=== PATIENT | male | born 1945 | race Caucasian/White ===

== ENCOUNTER 2018-03-14 17:11 | Emergency (ER) | payer MEDICARE, SELFPAY ==
[2018-03-14 17:15] VITALS: BP 139/75; PULSE 75; RESP 20; TEMP 36.7; O2SAT 96
[2018-03-14 17:46] LABS: Abs Immature Grans 0.03 k/cumm (0.0-0.09); Absolute Basophil Count 0.02 k/cumm (0.0-0.2); Absolute Eosinophil Count 0.13 k/cumm (0.0-0.7); Absolute Lymphocyte Count 3.06 k/cumm (1.2-3.4); Absolute Monocyte Count 0.62 k/cumm (0.11-0.7); Absolute Neutrophil Count 5.22 k/cumm (1.2-6.7); Basophils % 0.2; Eosinophils % 1.4; HGB 11.1 g/dL (13.5-17.5); Immature Grans % 0.3; Lymphocytes % 33.7; Mean Corp. HGB Concentration 32.6 g/dL (32.0-36.0); Mean Corpuscular Hemoglobin 32.6 pg (27.0-33.0); Mean Corpuscular Volume 99.7 fL (80-95); Mean Platelet Volume 11.4 fL (8.0-11.0); Monocytes % 6.8; Neutrophils % 57.6; Platelet Count 282 x1000/uL (130-400); RBC 3.41 m/cumm (4.50-6.00); RBC Distribution Width 15.1 % (11.8-14.1); White Blood Cell Count 9.08 k/cumm (4.4-10.8)
[2018-03-14 17:58] LABS: PTT Activated 44.6 sec (21.0-31.4)
[2018-03-14 17:59] LABS: ALT 28 U/L (12-78); AST 11 U/L (15-37); Albumin 3.6 g/dL (3.4-5.0); Alkaline Phosphatase 94 U/L (46-116); Anion Gap 11.3 mmol/L (3-11); BUN 27 mg/dL (7-18); Bilirubin, Total 0.3 mg/dL (0.2-1.0); CO2 23.7 mmol/L (21.0-32.0); CREATININE 1.29 mg/dL (0.70-1.30); Calcium 9.2 mg/dL (8.5-10.1); Chloride 104 mmol/L (98-107); Glucose 186 mg/dL (70-100); Potassium 3.8 mmol/L (3.5-5.1); Sodium 139 mmol/L (136-145); Total Protein 7.7 g/dL (6.4-8.2)
--- NOTE | 2018-03-14 18:12 | ED.GENADUL_ITS ---
Discharge Plan Disposition Patient Disposition: HOME Condition: Good Discharge Details Chief Complaint: GenMedical Clinical Impression: Supratherapeutic INR Primary Care Provider: Elle Ibrahim ED Provider: Alvaro Loera Home Meds and New Rx's Prescriptions: No Action tamsulosin 0.4 MG capsule 0.4 mg PO DAILY@0830 Qty: 90 RF: 4 finasteride 5 MG tablet 5 mg PO DAILY Qty: 90 RF: 3 loperamide [Anti-Diarrhea] 2 MG tablet 2 mg PO PRN RF: 0 calcium carbonate-vitamin D3 1 EACH tablet 2 ea PO DAILY RF: 0 liothyronine [Cytomel] 5 MCG tablet 5 mcg PO DAILY RF: 0 bupropion HCl 100 MG tablet 300 mg PO DAILY RF: 0 losartan [Cozaar] 25 MG tablet 25 mg PO DAILY RF: 0 fluoxetine [Prozac] 10 MG capsule 30 mg PO DAILY RF: 0 nitroglycerin [Nitrostat] 0.4 MG tablet, sublingual 0.4 mg Buccal ONCE RF: 0 pyridoxine (vitamin B6) [Vitamin B-6] 50 MG tablet 50 mg PO DAILY RF: 0 fluticasone [Flonase Allergy Relief] 9.9 ML spray,suspension 9.9 ml NS DAILY PRN PRNRF: 0 rosuvastatin [Crestor] 40 MG tablet 40 mg PO HS RF: 0 metoprolol tartrate 25 MG tablet 25 mg PO BID RF: 0 magnesium L-lactate [Magtab] 84 MG tablet extended release 84 mg PO BID RF: 0 melatonin 3 MG tablet,disintegrating 3 mg PO HS RF: 0 warfarin [Coumadin] 1 MG tablet 2.5 mg PO DAILY RF: 0 levothyroxine [Synthroid] 125 MCG tablet 125 mcg PO DAILY RF: 0 omeprazole 20 MG capsule,delayed release(DR/EC) 20 mg PO DAILY@0730 RF: 0 folic acid 1 MG tablet 1 mg PO QAM RF: 0 adalimumab [Humira] 40 MG/0.8 ML syringe kit 40 mg Sub-Q DIRECTED RF: 0 clopidogrel [Plavix] 75 MG tablet 75 mg PO DAILY Qty: 90 RF: 0 gabapentin 300 MG capsule 300 mg PO PRN PRNRF: 0 methylprednisolone 4 MG tablet 4 mg PO DAILY RF: 0 insulin detemir U-100 [Levemir FlexTouch U-100 Insuln] 100 UNIT/ML insulin pen 38 units Sub-Q BID RF: 0 albuterol sulfate [ProAir RespiClick] 90 MCG aerosol powdr breath activated 2 puff Inhalation QID PRN PRNRF: 0 Spironolactone 50 MG Tablet 50 mg PO DAILY RF: 0 Discharge Instructions Instructions: Elevated INR (ED) Additional Instructions: Please do not take your Coumadin today or tomorrow. Return to your Coumadin clinic or your family are here here in the next 24-48 hours for repeat check of your INR level. If you notice any blood in your stools, vomiting with bleeding , blood in your urine please return immediately. If you notice any worsening of your symptoms, or any new symptoms such as vomiting, diarrhea, fever, chills , shortness of breath, chest pain, numbness, weakness, or fainting , please return immediately to the emergency department for reevaluation. Please follow up with your primary care provider as soon as possible for reassessment and reevaluation. As always, it was a pleasure participating in your medical care today. Referrals: Elle Ibrahim [Primary Care Provider] - Medical Decision Making This is a pleasant 72-year-old male who presents for evaluation of supratherapeutic INR. Her his INR was greater than 8, however he denies no symptoms of bleeding, stool Hemoccult was negative for any blood, and he has no symptoms of hematuria, hematemesis, or other abnormalities. We will get an INR and confirm his elevated findings, we will make sure his hemoglobin levels are stable. He will most likely be getting oral vitamin K, and close follow-up in the next 24 and 48 hours for INR recheck. Since he has no active bleeding symptoms at this time I do not feel that any other treatments are indicated including a lack of the need for PCC, or FFP. 6:29 PM Patient's laboratory workup demonstrates an elevated INR of 9. With no signs of active bleeding he will be given 5 mg of oral vitamin K. We discussed red flags which to return including any and all potential signs of bleeding. He will follow-up with his primary care provider in the outpatient Coumadin clinic in the next 24-48 hours for repeat INR check. He also has an INR machine at home. We recommend that he hold off on doses for the next 24 hours, and then reassess. I have extensively reviewed the treatment plan and discharge instructions with the patient and their family. I have addressed all patient concerns at this time. The patient and family was made aware of what symptoms to monitor for that would warrant a return to the emergency department. Discussed the plan with the patient and family, they demonstrate verbal understanding and agreement with our assessment and plan at this time. HPI General Date/Time Provider Initiated Documentation: 03/14/18 17:35 . HPI Narrative: This is a 72-year-old male with a past medical history of type 2 diabetes, blood clots, Crohn's disease, rheumatoid arthritis, seizure disorder who presents today for evaluation of supratherapeutic INR. Patient states that he is actually been low on his INR for the last few weeks because he has not been taking his medication, however he started taking his medication and when he went to have his INR checked today it was greater than 8. He was recommended to come to the ER for further evaluation. He denies any chest pain , abdominal pain, hematuria, diarrhea, melena, dark tarry stool, cuts, or other pain. His he states that he has been taking medications as directed. He denies any other trauma falls or complaints at this time recently denies any recent surgeries, worsening of his chronic colitis, or other complaints. Related Data Home Medications Medication Instructions Recorded Confirmed adalimumab [Humira] 40 mg SUB-Q DIRECTED 10/13/12 03/14/18 folic acid 1 mg PO QAM 10/13/12 03/14/18 levothyroxine [Synthroid] 125 mcg PO DAILY 10/13/12 03/14/18 omeprazole 20 mg PO DAILY@0730 10/13/12 03/14/18 warfarin [Coumadin] 2.5 mg PO DAILY 10/13/12 03/14/18 clopidogrel [Plavix] 75 mg PO DAILY #90 tab 10/17/12 03/14/18 tamsulosin 0.4 mg PO DAILY@0830 #90 tab 03/27/13 03/14/18 finasteride 5 mg PO DAILY #90 tab-cap 03/29/14 03/14/18 bupropion HCl 300 mg PO DAILY 07/03/15 03/14/18 calcium carbonate-vitamin D3 2 ea PO DAILY 07/03/15 03/14/18 fluoxetine [Prozac] 30 mg PO DAILY tab-cap 07/03/15 03/14/18 fluticasone [Flonase Allergy 9.9 ml NS DAILY PRN PRN 07/03/15 03/14/18 Relief] liothyronine [Cytomel] 5 mcg PO DAILY tab-cap 07/03/15 03/14/18 loperamide [Anti-Diarrhea] 2 mg PO PRN 07/03/15 03/14/18 losartan [Cozaar] 25 mg PO DAILY tab-cap 07/03/15 03/14/18 magnesium L-lactate [Magtab] 84 mg PO BID 07/03/15 03/14/18 melatonin 3 mg PO HS 07/03/15 03/14/18 metoprolol tartrate 25 mg PO BID tab-cap 07/03/15 03/14/18 nitroglycerin [Nitrostat] 0.4 mg BUCCAL ONCE tab-cap 07/03/15 03/14/18 pyridoxine (vitamin B6) [Vitamin 50 mg PO DAILY 07/03/15 03/14/18 B-6] rosuvastatin [Crestor] 40 mg PO HS 07/03/15 03/14/18 Spironolactone 50 mg PO DAILY 10/21/17 03/14/18 albuterol sulfate [ProAir 2 puff INHALATION QID PRN PRN 10/21/17 03/14/18 RespiClick] insulin detemir U-100 [Levemir 38 units SUB-Q BID 10/21/17 03/14/18 FlexTouch U-100 Insuln] methylprednisolone 4 mg PO DAILY 10/21/17 03/14/18 gabapentin 300 mg PO PRN PRN 11/22/17 03/14/18 Previous Rx's Medication Instructions Recorded clopidogrel [Plavix] 75 mg PO DAILY #90 tab 10/17/12 Allergies Allergy/AdvReac Type Severity Reaction Status Date / Time methotrexate AdvReac Mild Unverified 03/14/18 17:17 atorvastatin calcium AdvReac Bones ache. Unverified 03/14/18 17:17 [From Lipitor] RAMICAIN AdvReac Uncoded 03/14/18 17:17 General Stated Complaint: GenMedical HEMA: 3 Review of Systems Review of Systems All systems reviewed & are unremarkable except as noted in HPI and below PFSH Medical History GERD (gastroesophageal reflux disease) Social History Smoking/Tobacco Use Status: Never Surgical History Prosthesis, Penile implant Exam Narrative Exam Narrative: 1.Const: Well-nourished, Well-developed, appearing stated age 2.Eyes: PERRL, no conjunctival injection, and symmetrical lids. 3.ENT: Atraumatic external nose and ears. Moist MM. Neck: Symmetric, trachea midline, No thyromegaly. 4.CVS: +S1/S2, No murmurs or gallops. Peripheral pulses 2+ and equal in all extremities. Brisk capillary refill in all extremities. 5.RESP: Unlabored respiratory effort. Clear to auscultation bilaterally. No wheezes rales or rhonchi 6.GI: Soft, Nontender/Nondistended, No hepatosplenomegaly. No guarding or rebound. 7.MSK: Normocephalic/Atraumatic, Extremities w/o deformity or ttp No cyanosis or clubbing, Normal movement of all extremities 8.Skin: Warm, Dry. No rashes or lesions. No significant bruising. 9.Neuro: spinning frame changer II-XII grossly intact. Sensation grossly intact, no focal neurologic deficits. 10.Psych: (AAO) x3. Appropriate mood and affect Rectal exam demonstrates no evidence of rectal bleeding, hemorrhoids, stool occult was negative. Course Vital Signs Temperature 36.7 C 03/14/18 17:15 Pulse 75 03/14/18 17:15 Respiratory Rate 20 03/14/18 17:15 Blood Pressure 139/75 03/14/18 17:15 Pulse Oximetry 96 03/14/18 17:15 Temperature 36.7 C 03/14/18 17:15 Temperature Source Temporal Artery Scan 03/14/18 17:15 Pulse 75 03/14/18 17:15 Respiratory Rate 20 03/14/18 17:15 Respiratory Effort Short of Breath 03/14/18 17:35 Respiratory Depth Normal 03/14/18 17:35 Blood Pressure 139/75 03/14/18 17:15 Blood Pressure Position Sitting 03/14/18 17:15 Pulse Oximetry 96 03/14/18 17:15 Oxygen Delivery Method Room Air 03/14/18 17:15 Oxygen Flow Rate 0 03/14/18 17:15 Pain Level 7 03/14/18 17:15 Lab/Test Results Lab/Test Results: Laboratory Tests Range/Units 03/14/18 03/14/18 17:40 17:40 WBC (4.4-10.8) k/cumm 9.08 RBC (4.50-6.00) m/cumm 3.41 L Hgb (13.5-17.5) g/dL 11.1 L Hct (40.0-50.0) % 34.0 L MCV (80-95) fL 99.7 H MCH (27.0-33.0) pg 32.6 MCHC (32.0-36.0) g/dL 32.6 RDW (11.8-14.1) % 15.1 H Plt Count (130-400) x1000/uL 282 MPV (8.0-11.0) fL 11.4 H Immature Gran % 0.3 Neutrophils % 57.6 Lymphocytes % 33.7 Monocytes % 6.8 Eosinophils % 1.4 Basophils % 0.2 Absolute Neutrophils (1.2-6.7) k/cumm 5.22 Absolute Lymphocytes (1.2-3.4) k/cumm 3.06 Absolute Monocytes (0.11-0.7) k/cumm 0.62 Absolute Eosinophils (0.0-0.7) k/cumm 0.13 Absolute Basophils (0.0-0.2) k/cumm 0.02 Sodium (136-145) mmol/L 139 Potassium (3.5-5.1) mmol/L 3.8 Chloride (98-107) mmol/L 104 Carbon Dioxide (21.0-32.0) mmol/L 23.7 Anion Gap (3-11) mmol/L 11.3 H BUN (7-18) mg/dL 27 H Creatinine (0.70-1.30) mg/dL 1.29 Estimated GFR/1.73 m2 (mL/min/1.73m2) 54.60 Glucose (70-100) mg/dL 186 H Calcium (8.5-10.1) mg/dL 9.2 Total Bilirubin (0.2-1.0) mg/dL 0.3 AST (15-37) U/L 11 L ALT (12-78) U/L 28 Alkaline Phosphatase (46-116) U/L 94 Total Protein (6.4-8.2) g/dL 7.7 Albumin (3.4-5.0) g/dL 3.6
[2018-03-14 18:26] LABS: Prothrombin Time 86.9 sec (9.3-10.8)
[2018-03-14 18:30] LABS: INR 9.7 (1.0-3.5)
[2018-03-14] MEDS: Phytonadione 5 MG TABLET PO (18:36)
== END 2018-03-14 18:52 | disposition home or self-care (01) ==
PROVIDERS: Emergency Provider Student in an Organized Health Care Education/Training Program; PCP Family Medicine
DX: R79.1 Abnormal coagulation profile (principal); T45.515A Adverse effect of anticoagulants, initial encounter; E11.9 Type 2 diabetes mellitus without complications; Z79.4 Long term (current) use of insulin; Z79.01 Long term (current) use of anticoagulants
CPT/HCPCS: 36415; 80053; 99283; 85025; 85610; 85730

== ENCOUNTER 2018-04-27 17:00 | Outpatient (REF) | payer MEDICARE, SELFPAY ==
[2018-04-27 18:50] LABS: ALT 26 U/L (12-78); AST 15 U/L (15-37); Albumin 3.6 g/dL (3.4-5.0); Alkaline Phosphatase 84 U/L (46-116); Anion Gap 11.3 mmol/L (3-11); BUN 27 mg/dL (7-18); Bilirubin, Total 0.2 mg/dL (0.2-1.0); CO2 23.7 mmol/L (21.0-32.0); Calcium 9.1 mg/dL (8.5-10.1); Chloride 104 mmol/L (98-107); Glucose 141 mg/dL (70-100); Sodium 139 mmol/L (136-145); TSH (W/Ref FT4) 0.69 uIU/mL (0.358-3.74); Total Protein 7.4 g/dL (6.4-8.2)
== END 2018-04-27 17:20 ==
LOC: NCHCN 17:00
PROVIDERS: PCP Family Medicine; Visit Provider Nurse Practitioner Family
DX: E03.9 Hypothyroidism, unspecified (principal); E11.9 Type 2 diabetes mellitus without complications; I10 Essential (primary) hypertension
CPT/HCPCS: 80053; 84443

== ENCOUNTER 2018-07-24 12:44 | Outpatient (REF) | payer MEDICARE, SELFPAY ==
[2018-07-24 19:22] LABS: HCT 33.4 % (40.0-50.0); HGB 10.9 g/dL (13.5-17.5); Mean Corp. HGB Concentration 32.6 g/dL (32.0-36.0); Mean Corpuscular Hemoglobin 32.2 pg (27.0-33.0); Mean Corpuscular Volume 98.5 fL (80-95); Mean Platelet Volume 12.2 fL (8.0-11.0); Platelet Count 205 x1000/uL (130-400); RBC 3.39 m/cumm (4.50-6.00); RBC Distribution Width 14.2 % (11.8-14.1); White Blood Cell Count 7.35 k/cumm (4.4-10.8)
[2018-07-24 20:03] LABS: Vitamin B12 364 pg/mL (193-986)
[2018-07-24 20:06] LABS: Folate > 20.0 ng/mL (8.6-20.0)
[2018-07-26 16:25] LABS: Iron 103 ug/dL (50-175); Total Iron Binding Capacity 258 ug/dL (250-450); Transferrin Sat 40 % (20-55)
[2018-07-26 16:38] LABS: Ferritin 169 ng/mL (8-388)
== END 2018-07-24 13:04 ==
LOC: NCHCN 12:44
PROVIDERS: PCP Family Medicine; Visit Provider Family Medicine
DX: R42 Dizziness and giddiness (principal); R71.8 Other abnormality of red blood cells
CPT/HCPCS: 85027; 82607; 82728; 82746; 83540; 83550

== ENCOUNTER 2018-09-19 09:06 | Outpatient (REF) | payer MEDICARE, SELFPAY ==
[2018-09-19 13:20] LABS: HCT 32.6 % (40.0-50.0); HGB 10.4 g/dL (13.5-17.5); Mean Corp. HGB Concentration 31.9 g/dL (32.0-36.0); Mean Corpuscular Hemoglobin 31.6 pg (27.0-33.0); Mean Corpuscular Volume 99.1 fL (80-95); Mean Platelet Volume 11.8 fL (8.0-11.0); Platelet Count 232 x1000/uL (130-400); RBC 3.29 m/cumm (4.50-6.00); RBC Distribution Width 14.6 % (11.8-14.1); White Blood Cell Count 6.91 k/cumm (4.4-10.8)
[2018-09-19 14:14] LABS: Anion Gap 13.3 mmol/L (3-11); BUN 22 mg/dL (7-18); CO2 21.7 mmol/L (21.0-32.0); CREATININE 0.98 mg/dL (0.70-1.30); Calcium 8.7 mg/dL (8.5-10.1); Chloride 104 mmol/L (98-107); Cholesterol 128 mg/dL (50-200); Glucose 144 mg/dL (70-100); HDL Cholesterol 47 mg/dL (40-60); LDL CHOLESTEROL 64 mg/dL (<100); Sodium 139 mmol/L (136-145); Triglyceride 85 mg/dL (30-150); Vitamin B12 987 pg/mL (193-986)
== END 2018-09-19 09:26 ==
LOC: NCHCN 09:06
PROVIDERS: PCP Family Medicine; Visit Provider Nurse Practitioner Family
DX: E78.5 Hyperlipidemia, unspecified (principal); I10 Essential (primary) hypertension; E11.9 Type 2 diabetes mellitus without complications; E53.8 Deficiency of other specified B group vitamins; R42 Dizziness and giddiness
CPT/HCPCS: 80048; 80061; 83721; 85027; 82607

== ENCOUNTER → 2018-10-04 12:53 | Outpatient (BNVA) | payer MEDICARE, SELFPAY | PROVIDERS: PCP Family Medicine; Referring Provider Nurse Practitioner Family; Visit Provider Psychiatry & Neurology Neurology | DX: G62.9 Polyneuropathy, unspecified (principal); R42 Dizziness and giddiness; R26.89 Other abnormalities of gait and mobility; I95.9 Hypotension, unspecified; Z86.73 Personal history of transient ischemic attack (TIA), and cerebral infarction without residual deficits | CPT/HCPCS: 99205; 99215 ==

== ENCOUNTER 2018-10-04 15:15 | Outpatient (CLI) | payer MEDICARE, SELFPAY ==
[2018-10-06 12:38] LABS: Albumin 51.4 % (55.8-66.1); Monoclonal Spike 14.2 %; Total Protein 6.7 g/dl (6.3-8.2)
[2018-10-08 09:55] LABS: Pyridoxal 5-Phosphate (PLP), P 17 mcg/L (5-50)
== END 2018-10-04 15:35 ==
PROVIDERS: PCP Nurse Practitioner Family; Visit Provider Psychiatry & Neurology Neurology
DX: G62.9 Polyneuropathy, unspecified (principal)
CPT/HCPCS: 36415; 99215; 84165; 84207

== ENCOUNTER 2018-11-20 10:26 | Outpatient (REF) | payer MEDICARE, SELFPAY ==
[2018-11-20 18:27] LABS: HCT 34.9 % (40.0-50.0); HGB 11.1 g/dL (13.5-17.5); Mean Corp. HGB Concentration 31.8 g/dL (32.0-36.0); Mean Corpuscular Hemoglobin 31.4 pg (27.0-33.0); Mean Corpuscular Volume 98.6 fL (80-95); Mean Platelet Volume 11.4 fL (8.0-11.0); Platelet Count 239 x1000/uL (130-400); RBC 3.54 m/cumm (4.50-6.00); RBC Distribution Width 15.3 % (11.8-14.1)
[2018-11-20 18:38] LABS: Iron 94 ug/dL (50-175); Total Iron Binding Capacity 205 ug/dL (250-450); Transferrin Sat 46 % (20-55)
[2018-11-20 19:10] LABS: TSH (W/Ref FT4) 18.01 uIU/mL (0.358-3.74); Vitamin B12 1068 pg/mL (193-986)
[2018-11-20 19:51] LABS: FREE T4 0.72 ng/dL (0.76-1.46)
== END 2018-11-20 10:46 ==
LOC: NCHCN 10:26
PROVIDERS: PCP Nurse Practitioner Family; Visit Provider Nurse Practitioner Family
DX: E53.8 Deficiency of other specified B group vitamins (principal); E89.0 Postprocedural hypothyroidism; D51.0 Vitamin B12 deficiency anemia due to intrinsic factor deficiency
CPT/HCPCS: 85027; 82607; 83540; 83550; 84439; 84443

== ENCOUNTER 2019-03-05 10:21 | Inpatient (IN) | payer MEDICARE, SELFPAY ==
[2019-03-05] VITALS (39 sets, daily range): BP systolic 100–136; BP diastolic 59–75; PULSE 70–124; RESP 12–31; TEMP 36.6–39.2; O2SAT 91–96
--- NOTE | 2019-03-05 10:28 | W.ED.GENAD ---
Discharge Plan Discharge Details Chief Complaint: GenMedical Admit Date/Time: 03/05/19 14:28 Admit Provider: Kirill Mtz Attending Provider: Kirill Mtz Primary Care Provider: Korin Florian ED Provider: Melanie Arias Discharge Data Discharge Date/Time-TO BE ENTERED AT DEPARTURE: 03/05/19 15:49 Medical Decision Making Miguel Padilla is a 73-year-old man with history of hypothyroidism, multiple strokes in the past, hypertension, hyperlipidemia, GERD, insulin dependent diabetes, seizure disorder, adrenal insufficiency, DVT on Coumadin, coronary artery disease, Crohn's disease on immunosuppressive medication who presented to the emergency department with frequent falls including last night secondary to feeling off balance when he stands, and also 1 month of fatigue, generalized weakness, and decreased appetite. On exam patient is chronically ill but acutely nontoxic appearing. He appears dehydrated. He has somewhat decreased breath sounds throughout and is tachycardic between 100 and 120. His abdominal exam is benign, he has no posterior calf tenderness or lower extremity edema, and his neurologic exam is nonfocal. Concern for metabolic/lyte derangement, UTI/PNA, acute intracranial process, possible posterior circulation pathology, ACS. Doubt PE. Exam/history is not consistent with acute aortic process, sepsis, meningitis. Plan for EKG, CT head, chest x-ray, UA, screening labs, telemetry, IV fluid hydration. Will monitor and reassess. CT had negative for acute process. Labs were reviewed, patient with multiple lab abnormalities including elevated creatinine. EKG shows sinus tach. I discussed patient with Dr. Montes De Oca of urology at [facility], who states that patient was fluid restricted to 64 ounces per day to help combat his symptoms of overactive bladder. She states that there is no contraindication to patient receiving as much IV fluid as is necessary, and does not need to have Rehman catheter in place for this unless there is an apparent problem with urinary retention/obstructive process. Patient with elevated d-dimer, however given elevated creatinine and low clinical suspicion for PE will hold CT at this time. Plan for admission for acute kidney injury, dehydration, further evaluation. Patient is amenable. Clinical impression: Acute kidney injury, failure to thrive Disposition: [facility] inpatient Medical Records Medical records reviewed: Yes I reviewed the patient's medical records. Imaging Data Radiologic Study: Attestation: I personally reviewed and interpreted this imaging study as follows: Radiologist's impression: EXAM: XR CHEST 2V PA LATERAL INDICATION: frequent falls, FTT. COMPARISON: CHEST 2 VIEWS PA,LAT from 09/16/2017 TECHNIQUE: 2D digital imaging was performed. FINDINGS: Heart size appears stable and within normal limits given the projection. Pulmonary vasculature is within normal limits. No focal consolidating infiltrate is present. No effusion or pneumothorax is identified. Age-appropriate degenerative changes are seen in the spine. IMPRESSION: No acute pulmonary process. EXAM: CT HEAD WO CLINICAL HISTORY: trauma, loss of balance TECHNIQUE: CT was performed according to usual protocol. COMPARISON: CTA BRAIN AND NECK from 11/22/2017 FINDINGS: There is mild patient motion artifact. The ventricles and sulci are consistent with the patient's age. Old bilateral lacunar infarcts are present. There are areas of decreased attenuation in the white matter most consistent with small vessel ischemic disease. No acute intracranial hemorrhage, midline shift, or mass effect is present. No acute skull fracture is present. The visualized paranasal sinuses are clear as are the mastoid air cells. IMPRESSION: No acute intracranial process. The findings were discussed with the emergency department on the date of the examination. Lab Data Lab results reviewed: Yes I reviewed the patient's lab results. ECG Data Attestation: I personally reviewed and interpreted this ECG (s) as follows: Prior ECG tracings: not available for review (No STEMI, nondiagnostic EKG) Interpretation: EKG shows sinus tach with PACs at 116, left axis, inferior low lateral Q waves, no STEMI, nondiagnostic EKG HPI General Mode of arrival: EMS. Date/Time Provider Initiated Documentation: 03/05/19 10:28. Limitations to Documentation: no limitations. Information obtained by: patient, family, RN notes reviewed and old records reviewed. HPI Narrative: Miguel Padilla is a 73-year-old man with history of hypothyroidism, multiple strokes in the past, hypertension, hyperlipidemia, GERD, insulin dependent diabetes, seizure disorder, adrenal insufficiency, DVT on Coumadin, coronary artery disease, Crohn's disease on immunosuppressive medication presenting to the emergency department with generalized weakness and multiple falls. Patient reports that he has a long history of falling and feeling off balance upon standing. He was seen for this by Dr. Ya this past spring, and per record review symptoms were thought to be secondary to orthostatic hypotension. Patient reports that in the past week or so he has had worsening symptoms. Patient reports that when he stands up he feels very off-balance, and he does have some sensation at the room is moving. Patient reports that he does not have lightheadedness when he stands, although he states that he has never had lightheadedness when he stands in the past. Patient states that he has fallen multiple times in the last few days, most recently being last night. He did hit his head, but he denies loss of consciousness. Patient also states that over the past month or so he has had generalized weakness, increased fatigue, and significantly decreased appetite. Patient reports that he had Botox injections into my bladder about a year ago, and I am only supposed to drink 64 ounces of fluid a day. Patient reports that he has been compliant with this fluid restriction. He denies any new pain, fevers, shortness of breath, cough, vomiting, diarrhea, numbness, focal weakness. He does report chronic low back pain that is unchanged from baseline. Patient also states that he was supposed to have back surgery for this chronic pain several days ago, although he canceled the procedure due to feeling generally unwell. Patient has not taken his Coumadin since 02/24 in anticipation of undergoing that procedure. Related Data Home Medications Medication Instructions Recorded Confirmed Humira 40 mg SUB-Q QWEEK 10/13/12 03/05/19 folic acid 1 mg PO QAM 10/13/12 03/05/19 warfarin [Coumadin] 2.5 mg PO DAILY 10/13/12 03/05/19 finasteride 5 mg PO DAILY #90 tab-cap 03/29/14 03/05/19 calcium carbonate-vitamin D3 2 ea PO DAILY 07/03/15 03/05/19 fluoxetine [Prozac] 30 mg PO DAILY tab-cap 07/03/15 03/05/19 fluticasone propionate [Flonase 9.9 ml NS BID PRN 07/03/15 03/05/19 Allergy Relief] nitroglycerin [Nitrostat] 0.4 mg BUCCAL PRN PRN tab-cap 07/03/15 03/05/19 pyridoxine (vitamin B6) [Vitamin 50 mg PO DAILY 07/03/15 03/05/19 B-6] rosuvastatin [Crestor] 40 mg PO HS 07/03/15 03/05/19 Levemir FlexTouch U-100 Insuln 35 units SUB-Q QAM 10/21/17 03/05/19 ProAir RespiClick 2 puff INHALATION QID PRN PRN 10/21/17 03/05/19 Spironolactone 50 mg PO DAILY 10/21/17 03/05/19 methylprednisolone 20 mg PO DAILY 10/21/17 03/05/19 amlodipine 5 mg tablet 5 mg PO DAILY 08/23/18 03/05/19 bupropion HCl 150 mg 24 hr tablet, 150 mg PO QAM 08/23/18 03/05/19 extended release calcitonin (salmon) 200 1 spray INTRANA AL DAILY 08/23/18 03/05/19 unit/actuation nasal spray docusate sodium 100 mg capsule 100 mg PO DAILY 08/23/18 03/05/19 levothyroxine 175 mcg tablet 175 mcg PO DAILY 08/23/18 03/05/19 lidocaine-prilocaine 2.5 %-2.5 % 1 applic TP PRN gm 08/23/18 03/05/19 topical cream melatonin 10 mg tablet 10 mg PO HS PRN 08/23/18 03/05/19 pantoprazole 40 mg tablet,delayed 40 mg PO DAILY 08/23/18 03/05/19 release tamsulosin 0.4 mg capsule 0.4 mg PO DAILY 08/23/18 03/05/19 Saccharomyces boulardii 250 mg PO DAILY 03/05/19 03/05/19 acetaminophen 500 mg PO BID 03/05/19 03/05/19 cholecalciferol (vitamin D3) 2,000 unit PO DAILY 03/05/19 03/05/19 [Vitamin D3] diclofenac sodium [Voltaren] 1 % TOPICAL TID PRN 03/05/19 03/05/19 gabapentin 300 - 600 mg PO TID PRN 03/05/19 03/05/19 insulin detemir U-100 [Levemir 30 unit SUBCUT QHS 03/05/19 03/05/19 FlexTouch U-100 Insuln] ipratropium bromide 2 spray INTRANASAL QID PRN 03/05/19 03/05/19 irbesartan 300 mg PO DAILY 03/05/19 03/05/19 leflunomide 20 mg PO DAILY 03/05/19 03/05/19 liothyronine [Cytomel] 5 mcg PO DAILY 03/05/19 03/05/19 mesalamine [Delzicol] 1,200 mg PO BID 03/05/19 03/05/19 sennosides [senna] 17.2 mg PO QHS PRN 03/05/19 03/05/19 sulfasalazine 1,500 mg PO DAILY 03/05/19 03/05/19 Allergies Allergy/AdvReac Type Severity Reaction Status Date / Time infliximab Allergy Unknown Verified 03/05/19 10:35 methotrexate AdvReac Mild Unverified 03/05/19 10:35 atorvastatin calcium AdvReac Bones ache. Unverified 03/05/19 10:35 [From Lipitor] RAMICAIN AdvReac Uncoded 03/05/19 10:35 General HEMA: 3 Review of Systems Narrative: Constitutional: denies fevers, reports fatigue Eyes: denies eye pain ENT: denies facial pain, dental pain, sore throat, ear pain Cardiovascular: denies chest pain, edema, lightheadedness, palpitations Respiratory: denies SOB, cough GI: denies abdominal pain, vomiting, diarrhea : denies flank pain MSK: denies neck pain, arthralgias, myalgias, reports chronic unchanged back pain Skin: denies rash Neuro: denies headaches, numbness, focal weakness, reports generalized weakness, feeling off balance, mild vertigo PFSH Medical History Adrenal insufficiency (Chronic) Benign prostatic hyperplasia (Acute 07/03/15) Coronary artery disease (Chronic) Crohns disease (Chronic) Diabetes mellitus, type II, insulin dependent (Acute) DVT (deep venous thrombosis) (Chronic) Erectile dysfunction of organic origin (Acute 07/03/15) GERD (gastroesophageal reflux disease) GI bleed (Chronic) Graves disease (Acute) Hyperlipidemia (Acute) Hypertension (Chronic) Hypothyroidism (Chronic) Obstructive sleep apnea (Chronic) Peripheral neuropathy (Chronic) Rheumatoid arthritis (Chronic) Sensorineural hearing loss, bilateral (Acute 01/28/15) Stroke (Chronic) 2018 Traumatic compression fracture of T12 thoracic vertebra (Acute) Vitamin B12 deficiency (Acute) Vitamin B6 deficiency (Acute) Vitamin D deficiency (Acute) Social History Smoking/Tobacco Use Status: Never Alcohol Intake: never Drug use: Never Household members: spouse Number of Children: 5 current occupation: Retired [employer] What is your relationship status?: Panel score (0-1 are the most socially isolated patients): 1 Do you feel safe at home: Yes Do you feel safe in your relationship?: Yes Exam Narrative Exam Narrative: Constitutional: Chronically ill but acutely [id number], pleasant, conversing normally HENT: head atraumatic/normocephalic/normal inspection, mucous membranes somewhat dry Eyes: conjunctiva normal, sclera normal, pupils 3mm b/l Neck: no stridor, normal ROM, trachea midline Chest: normal inspection Resp: normal work of breathing, somewhat decreased breath sounds bilaterally throughout no rales/rhonchi Cardio: Tachycardic rate, irregular rhythm GI: abdomen soft, non-tender, non-distended Back: normal inspection, no rash Skin: warm, dry, normal color, no rash Neuro: alert, not altered, cranial nerves II through XII intact, motor 5 out of 5 throughout, normal sensation all extremities, normal tone Ext: No posterior calf tenderness to palpation Psych: normal mood, normal affect, normal behavior
[2019-03-05 10:46] LABS: Abs Immature Grans 0.03 k/cumm (0.0-0.09); Absolute Basophil Count 0.01 k/cumm (0.0-0.2); Absolute Eosinophil Count 0.13 k/cumm (0.0-0.7); Absolute Lymphocyte Count 1.69 k/cumm (1.2-3.4); Absolute Monocyte Count 0.38 k/cumm (0.11-0.7); Absolute Neutrophil Count 7.77 k/cumm (1.2-6.7); Basophils % 0.1; Eosinophils % 1.3; HCT 31.2 % (40.0-50.0); HGB 10.1 g/dL (13.5-17.5); Immature Grans % 0.3; Lymphocytes % 16.9; Mean Corp. HGB Concentration 32.4 g/dL (32.0-36.0); Mean Corpuscular Hemoglobin 31.4 pg (27.0-33.0); Mean Corpuscular Volume 96.9 fL (80-95); Mean Platelet Volume 10.6 fL (8.0-11.0); Monocytes % 3.8; Neutrophils % 77.6; Platelet Count 308 x1000/uL (130-400); RBC 3.22 m/cumm (4.50-6.00); RBC Distribution Width 15.3 % (11.8-14.1); White Blood Cell Count 10.01 k/cumm (4.4-10.8)
--- NOTE | 2019-03-05 10:55 | DI.CT_ITS ---
EXAM: CT HEAD WO CLINICAL HISTORY: trauma, loss of balance TECHNIQUE: CT was performed according to usual protocol. COMPARISON: CTA BRAIN AND NECK from 11/22/2017 FINDINGS: There is mild patient motion artifact. The ventricles and sulci are consistent with the patient's ag e. Old bilateral lacunar infarcts are present. There are areas of decreased attenuation in the white matter most consistent with small vessel ischemic disease. No acute intracranial hemorrhage, midlin e shift, or mass effect is present. No acute skull fracture is present. The visualized paranasal si nuses are clear as are the mastoid air cells. IMPRESSION: No acute intracranial process. The findings were discussed with the emergency department on the date of the examination.
--- NOTE | 2019-03-05 10:56 | DI.RAD_ITS ---
EXAM: XR CHEST 2V PA LATERAL INDICATION: frequent falls, FTT. COMPARISON: CHEST 2 VIEWS PA,LAT from 09/16/2017 TECHNIQUE: 2D digital imaging was performed. FINDINGS: Heart size appears stable and within normal limits given the projection. Pulmonary vasculature is wi thin normal limits. No focal consolidating infiltrate is present. No effusion or pneumothorax is id entified. Age-appropriate degenerative changes are seen in the spine. IMPRESSION: No acute pulmonary process.
[2019-03-05 10:58] LABS: INR 1.1 (0.9-1.1); Prothrombin Time 11.5 sec (9.3-11.0)
[2019-03-05 11:30] LABS: ALT 37 U/L (16-63); AST 33 U/L (15-37); Albumin 2.7 g/dL (3.4-5.0); Alkaline Phosphatase 78 U/L (46-116); Anion Gap 12.2 mmol/L (3-11); BUN 43 mg/dL (7-18); Bilirubin, Total 0.7 mg/dL (0.2-1.0); CO2 22.8 mmol/L (21.0-32.0); CREATININE 1.77 mg/dL (0.70-1.30); Calcium 9.7 mg/dL (8.5-10.1); Chloride 99 mmol/L (98-107); Estimated GFR 37.79 (mL/min/1.73m2); Glucose 264 mg/dL (70-100); Magnesium 2.1 mg/dL (1.8-2.4); Potassium 4.7 mmol/L (3.5-5.1); Sodium 134 mmol/L (136-145); TSH (W/Ref FT4) 0.35 uIU/mL (0.36-3.74); Total Protein 8.1 g/dL (6.4-8.2); Vitamin B12 1569 pg/mL (193-986)
[2019-03-05 11:32] LABS: D-Dimer 1750 ng/mlFEU (<500); Troponin I < 0.05 ng/mL (0.00-0.06)
[2019-03-05 11:38] LABS: NT-proBNP 615 pg/mL
[2019-03-05 12:45] LABS: Bilirubin Small (Negative); Blood Negative (Negative); Clarity Clear (Clear); Glucose 500 mg/dL (Negative); Ketones Negative (Negative); Leukocyte Esterase Negative (Negative); Nitrite Negative (Negative); Specific Gravity >= 1.030 (1.005-1.025); Urobilinogen 0.2 EU/dL (Up TO 0.2); pH 5.5 (5-8)
[2019-03-05 12:57] LABS: Bacteria Negative HPF (Negative); C & S Indicated? No; Casts 0-2 Hyaline LPF (Negative); Crystals Negative HPF (Negative); Epithelial Cells Few HPF (Negative); Mucus Negative (Negative); RBC Negative (0-2); WBC 0-2 HPF (0-5)
[2019-03-05] MEDS: Normal Saline 250 ML IV (13:23)
[2019-03-05 14:00] LABS: Troponin I < 0.05 ng/mL (0.00-0.06)
[2019-03-05 16:56] LABS: BE -3.5 mmol/L (-3-3); HCO3 20 mmol/L (22-28); pCO2 27 mmHg (34-47); pH 7.48 (7.35-7.45); pO2 55 mmHg (83-108); sO2 88 % (94-98); tCO2 19 mmol/L (22-29)
[2019-03-05 17:02] LABS: FIO2 R/A %; Site Right Radial
[2019-03-05] MEDS: Heparin 5,000 UNITS/ML VIAL 5000 UNITS SC (17:13)
[2019-03-05] MEDS: Insulin Aspart 300 UNITS/3 ML PEN SC (17:14)
[2019-03-05] MEDS: Normal Saline 1,000 ML 100 ML IV (17:15)
--- NOTE | 2019-03-05 18:07 | NUR.NOTE ---
Nursing Note: patient by his own admission has been too weak to provide his own care with his adl's, he needed bottom and rudy care upon admission, and he stated it has been months since he has bathed,
[2019-03-05 18:17] LABS: Troponin I < 0.05 ng/mL (0.00-0.06)
--- NOTE | 2019-03-05 18:42 | DI.CT_ITS ---
EXAM: CT CHEST WO CLINICAL HISTORY: Hypoxia, Fever TECHNIQUE: The exam was performed according to the usual protocol without contrast enhancement. COMPARISON: CHEST FOR PULMONARY EMBOLUS from 10/16/2012 FINDINGS: There is atherosclerosis of the thoracic aorta. No aneurysmal dilatation is present. The heart is e nlarged. No pericardial effusion is seen. Coronary artery calcifications are present. No significa nt thoracic adenopathy is present. No pleural effusion or pneumothorax is identified. The lungs brandon w scattered ground-glass opacities throughout the lungs. There also appear to be bronchiectatic godoy ges, particularly in the right middle and right lower lobes. The tracheobronchial tree is otherwise unremarkable. Abdominal images shows atherosclerosis. Chronic changes are seen in the thoracic spin e suggestive of DISH. There is patient motion artifact. IMPRESSION: 1. Diffuse ground-glass opacities with bronchiectasis. Differential considerations include pneumonia , hemorrhage, pulmonary edema, or interstitial pneumonia. 2. Cardiomegaly. Coronary artery disease.
--- NOTE | 2019-03-05 19:02 | DI.VRAD_ITS ---
PROCEDURE INFORMATION: Exam: CT Chest Without Contrast Exam date and time: 03/05/2019 6:36 PM Clinical history: 73 years old, male; Fever TECHNIQUE: Imaging protocol: Computed tomography of the chest without contrast. COMPARISON: CT CHEST FOR PULMONARY EMBOLUS 02/11/2013 08:19 FINDINGS: Lungs: Diffuse mosaic lung pattern with bronchiectasis. Pleural space: Unremarkable. No pneumothorax. No pleural effusion. Heart: Cardiomegaly. Coronary artery disease. Aorta: Atherosclerotic disease. Lymph nodes: Unremarkable. No enlarged lymph nodes. Bones/joints: Multilevel degenerative changes of the thoracic spine with bridging osteophytes. Loss of vertebral height of several mid thoracic vertebra. Evidence for prior vertebroplasty. Soft tissues: Unremarkable. IMPRESSION: 1. Diffuse mosaic lung pattern with bronchiectasis suggest pulmonary etiology. 2. Cardiomegaly. Coronary artery disease. Dictated and Authenticated by: Julienne Escobar MD. Ordering:AMARIS Roy MD
--- NOTE | 2019-03-05 19:03 | W.PM.HP.N ---
Date of service: 03/05/19 Time of Service: 19:10 Assessment and Plan Assessment and plan (1) Hypoxia: Status: Acute Assessment and plan: Evidence of hypoxia, fever, and pulmonary abnormalities by imaging with CT in immunosuppressed patient. - Consider infectious etiology - broad spectrum coverage with Vancomycin and Pip-Jesus, with macrolide for atypical coverage. - No evidence of fungal infection. Would also consider viral infection. Check Rapid Flu, and consider viral panel pending patient's clinical status. - Also on Humira, Sulfasalazine, and Leflunomide, with potential for infections as well as pulmonary processes such as ILD and Pulm toxicity - although patient is febrile. Plan on monitoring closely, with consideration for review of images and clinical picture with [facility] [place] pending patient's clinical status in the morning. (2) Fever: Status: Acute Assessment and plan: As above. Blood cultures pending. Urinalysis negative for infection. (3) Weakness: Status: Acute (4) PRISCILLA (acute kidney injury): Status: Acute Assessment and plan: In setting of illness and poor PO intake, likely pre-renal in etiology. Gentle hydration, monitor renal function, renally dose medications, and avoid nephrotoxins. (5) Hypertension: Status: Chronic Assessment and plan: Hold Spironolactone, ARB in setting of PRISCILLA, and reinitiate when able. Monitor bp. (6) Hyperlipidemia: Status: Acute Assessment and plan: On statin therapy. (7) Diabetes mellitus, type II, insulin dependent: Status: Acute Assessment and plan: Continue basal insulin, maintain on sliding scale, and initiate ADA diet. (8) Obstructive sleep apnea: Status: Chronic Assessment and plan: Noted. Continue CPAP. (9) Coronary artery disease: Status: Chronic Assessment and plan: Underlying CAD in the setting of chronic inflammatory processes with RA and Crohn's Disease. Reportedly with 5 prior VA's, s/p multiple stents (Documented 7 by review of cardiology notes). Appears asymptomatic currently. - Continue statin, prn NTG. Does not appear to be on daily ASA or BB. - Currently with tachycardia, with either sinus arrhythmia with PACs or multi-focal Atach in setting of hypoxia and pulmonary process. Initiated short acting Cardizem with plans for titration. (10) Crohns disease: Status: Chronic Assessment and plan: On Humira, Mesalamine. Patient also has a history of RA, maintained on Leflunomide as well. (11) Anemia: Status: Chronic (12) DVT (deep venous thrombosis): Status: Chronic Assessment and plan: Hx DVT on anticoagulation, placed on hold for procedure last week that did not occur. Resume Coumadin, with heparin gtt as above. (13) Hypothyroidism: Status: Chronic Assessment and plan: Appears to be over-replaced, with slightly depressed TSH and mild elevation in FT4. Continue Levothyroxine but decrease dose. Also on Cytomel. (14) DVT prophylaxis: Status: Acute Assessment and plan: Heparin gtt as above, with coumadin being resumed. (15) Advance directive on file: Status: Acute Assessment and plan: Full Code. History of Present Illness History of Present Illness Chief Complaint: Vertigo, weakness Narrative: 73-year-old man with past medical history significant for long-standing vertigo, as well as RA and Crohn's disease maintained chronically on immunosuppressive therapy, being admitted from [facility] emergency department on 03/05 with a diagnosis of weakness and falls. Mr. Padilla has a past medical history significant for RA and Crohn's disease maintained on daily steroids and immune suppressive therapy. He also has a significant cardiac history, with multiple MIs in the past with reported 7 stents, last 2 occurring in 2010 in [place]. His last stress test in 2017 showed a fixed defect. His other history includes DM, HTN, dyslipidemia, hypothyroidism, FRANCIE on CPAP therapy, ED status post penile implant, prior CVA, moderate AI, depression, and MGUS. He also has noted seizure disorder, manifested by headache and transient speech difficulties. He has a herniated disc in his lumbar region that was scheduled for potential intervention last Tuesday, not attended by the patient due to feeling ill. The patient presents to the ED with complaints of vertigo type symptoms. 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 Ethel Ya of neurology back in September of this year. He was also noted to have gait imbalance that was deemed multifactorial in the setting of vertigo, orthostatic hypotension, and significant neuropathy. However the patient reports that while his vertigo has been constant, he had suffered a fall on the day prior to his admission. His in fact reports that he has been falling quite a bit at home recently. He has a prior history of DVT, and is anticoagulated chronically with Coumadin. However due to anticipation of the potential surgical procedure last Tuesday the patient's Coumadin had been on hold, and his INR at time of presentation was normal. Evaluation in the ED was noteworthy for mild PRISCILLA with a creatinine of 1.77, normal INR as previously stated, mildly depressed TSH with mildly elevated FT4, and a UA that while high and specific gravity was negative for any signs of infection or pyuria. BNP was also checked and relatively unremarkable at 615 (patient's prior values have been as high as 7000). Chest x-ray showed no acute pulmonary process. ECG was initially reported by the ED as A. fib, but upon closer inspection noted to be a sinus arrhythmia with potential PACs. Patient was admitted for further evaluation and treatment of his ongoing weakness, with recent frequent falls. Shortly following admission Mr. Padilla was noted to be slightly hypoxic and spiked a fever. Subsequent ABG showed evidence of hypoxia, with a PaO2 of 55. CT of the chest was obtained and showed a diffuse 'mosaic pattern' with bronchiectasis, but no obvious infiltrate. The patient himself denied any subjective SOB or pulmonary symptoms, but had an obvious cough at time of exam. He also denied subjective fevers at home. Review of Systems All systems reviewed & are unremarkable except as noted in HPI and below PFSH Medical History Adrenal insufficiency (Chronic) Benign prostatic hyperplasia (Acute 07/03/15) Coronary artery disease (Chronic) Crohns disease (Chronic) Diabetes mellitus, type II, insulin dependent (Acute) DVT (deep venous thrombosis) (Chronic) Erectile dysfunction of organic origin (Acute 07/03/15) GERD (gastroesophageal reflux disease) GI bleed (Chronic) Graves disease (Acute) Hyperlipidemia (Acute) Hypertension (Chronic) Hypothyroidism (Chronic) Obstructive sleep apnea (Chronic) Peripheral neuropathy (Chronic) Rheumatoid arthritis (Chronic) Sensorineural hearing loss, bilateral (Acute 01/28/15) Stroke (Chronic) 2018 Traumatic compression fracture of T12 thoracic vertebra (Acute) Vitamin B12 deficiency (Acute) Vitamin B6 deficiency (Acute) Vitamin D deficiency (Acute) Social History Smoking/Tobacco Use Status: Never Alcohol Intake: never Drug use: Never Household members: spouse Number of Children: 5 current occupation: Retired [employer] What is your relationship status?: Panel score (0-1 are the most socially isolated patients): 1 Do you feel safe at home: Yes Do you feel safe in your relationship?: Yes Meds Home Medications and Allergies Home Medications Medication Instructions Recorded Confirmed Type Humira 40 mg SUB-Q QWEEK 10/13/12 03/05/19 History folic acid 1 mg PO QAM 10/13/12 03/05/19 History warfarin [Coumadin] 2.5 mg PO DAILY 10/13/12 03/05/19 History finasteride 5 mg PO DAILY #90 tab-cap 03/29/14 03/05/19 History calcium carbonate-vitamin D3 2 ea PO DAILY 07/03/15 03/05/19 History fluoxetine [Prozac] 30 mg PO DAILY tab-cap 07/03/15 03/05/19 History fluticasone propionate [Flonase 9.9 ml NS BID PRN 07/03/15 03/05/19 History Allergy Relief] nitroglycerin [Nitrostat] 0.4 mg BUCCAL PRN PRN tab-cap 07/03/15 03/05/19 History pyridoxine (vitamin B6) [Vitamin 50 mg PO DAILY 07/03/15 03/05/19 History B-6] rosuvastatin [Crestor] 40 mg PO HS 07/03/15 03/05/19 History Levemir FlexTouch U-100 Insuln 35 units SUB-Q QAM 10/21/17 03/05/19 History ProAir RespiClick 2 puff INHALATION QID PRN PRN 10/21/17 03/05/19 History Spironolactone 50 mg PO DAILY 10/21/17 03/05/19 History methylprednisolone 20 mg PO DAILY 10/21/17 03/05/19 History amlodipine 5 mg tablet 5 mg PO DAILY 08/23/18 03/05/19 History bupropion HCl 150 mg 24 hr tablet, 150 mg PO QAM 08/23/18 03/05/19 History extended release calcitonin (salmon) 200 1 spray INTRANA AL DAILY 08/23/18 03/05/19 History unit/actuation nasal spray docusate sodium 100 mg capsule 100 mg PO DAILY 08/23/18 03/05/19 History levothyroxine 175 mcg tablet 175 mcg PO DAILY 08/23/18 03/05/19 History lidocaine-prilocaine 2.5 %-2.5 % 1 applic TP PRN gm 08/23/18 03/05/19 History topical cream melatonin 10 mg tablet 10 mg PO HS PRN 08/23/18 03/05/19 History pantoprazole 40 mg tablet,delayed 40 mg PO DAILY 08/23/18 03/05/19 History release tamsulosin 0.4 mg capsule 0.4 mg PO DAILY 08/23/18 03/05/19 History Saccharomyces boulardii 250 mg PO DAILY 03/05/19 03/05/19 History acetaminophen 500 mg PO BID 03/05/19 03/05/19 History cholecalciferol (vitamin D3) 2,000 unit PO DAILY 03/05/19 03/05/19 History [Vitamin D3] diclofenac sodium [Voltaren] 1 % TOPICAL TID PRN 03/05/19 03/05/19 History gabapentin 300 - 600 mg PO TID PRN 03/05/19 03/05/19 History insulin detemir U-100 [Levemir 30 unit SUBCUT QHS 03/05/19 03/05/19 History FlexTouch U-100 Insuln] ipratropium bromide 2 spray INTRANASAL QID PRN 03/05/19 03/05/19 History irbesartan 300 mg PO DAILY 03/05/19 03/05/19 History leflunomide 20 mg PO DAILY 03/05/19 03/05/19 History liothyronine [Cytomel] 5 mcg PO DAILY 03/05/19 03/05/19 History mesalamine [Delzicol] 1,200 mg PO BID 03/05/19 03/05/19 History sennosides [senna] 17.2 mg PO QHS PRN 03/05/19 03/05/19 History sulfasalazine 1,500 mg PO DAILY 03/05/19 03/05/19 History Allergies Allergy/AdvReac Type Severity Reaction Status Date / Time infliximab Allergy Unknown Verified 03/05/19 10:35 methotrexate AdvReac Mild Unverified 03/05/19 10:35 atorvastatin calcium AdvReac Bones ache. Unverified 03/05/19 10:35 [From Lipitor] RAMICAIN AdvReac Uncoded 03/05/19 10:35 Exam Narrative Exam Narrative: General: Patient appears comfortable, AAOX3, NAD Neck: Supple CV: Regular, nontachycardic, S1S2, No rubs, murmurs, or gallops. Pulmonary: Small area of crackles left lateral base and right mid lung zone Abdomen: + Bowel Sounds, soft, nontender, nondistended Vascular: Mild lower extremity edema Psych: Normal mood and affect. Results Labs Result diagrams: 03/06/19 06:37 03/06/19 06:37 Labs: Laboratory Results - last 24 hr 03/05/19 03/05/19 03/05/19 10:30 10:30 10:30 WBC 10.01 RBC 3.22 L Hgb 10.1 L Hct 31.2 L MCV 96.9 H MCH 31.4 MCHC 32.4 RDW 15.3 H Plt Count 308 MPV 10.6 Immature Gran % 0.3 Neutrophils % 77.6 Lymphocytes % 16.9 Monocytes % 3.8 Eosinophils % 1.3 Basophils % 0.1 Absolute Neutrophils 7.77 H Absolute Lymphocytes 1.69 Absolute Monocytes 0.38 Absolute Eosinophils 0.13 Absolute Basophils 0.01 PT 11.5 H INR 1.1 D-Dimer Sample Site pCO2 pO2 O2 Saturation ABG pH ABG HCO3 ABG Total CO2 ABG Base Excess FiO2 Sodium 134 L Potassium 4.7 Chloride 99 Carbon Dioxide 22.8 Anion Gap 12.2 H BUN 43 H Creatinine 1.77 H Estimated GFR/1.73 m2 37.79 Glucose 264 H Calcium 9.7 Magnesium 2.1 Total Bilirubin 0.7 AST 33 ALT 37 Alkaline Phosphatase 78 Troponin I < 0.05 NT-Pro-B Natriuret Pep Total Protein 8.1 Albumin 2.7 L Vitamin B12 1569 H TSH 0.35 L Free T4 1.50 H Urine Color Urine Clarity Urine pH Ur Specific [place] Urine Protein Urine Ketones Urine Blood Urine Nitrite Urine Bilirubin Urine Urobilinogen Ur Leukocyte Esterase Urine RBC Urine WBC Ur Epithelial Cells Urine Crystals Urine Bacteria Urine Casts Urine Mucus Ur Culture Indicated? Urine Glucose 03/05/19 03/05/19 03/05/19 10:30 10:30 12:20 WBC RBC Hgb Hct MCV MCH MCHC RDW Plt Count MPV Immature Gran % Neutrophils % Lymphocytes % Monocytes % Eosinophils % Basophils % Absolute Neutrophils Absolute Lymphocytes Absolute Monocytes Absolute Eosinophils Absolute Basophils PT INR D-Dimer 1750 H Sample Site pCO2 pO2 O2 Saturation ABG pH ABG HCO3 ABG Total CO2 ABG Base Excess FiO2 Sodium Potassium Chloride Carbon Dioxide Anion Gap BUN Creatinine Estimated GFR/1.73 m2 Glucose Calcium Magnesium Total Bilirubin AST ALT Alkaline Phosphatase Troponin I NT-Pro-B Natriuret Pep 615 H Total Protein Albumin Vitamin B12 TSH Free T4 Urine Color Yellow Urine Clarity Clear Urine pH 5.5 Ur Specific [place] >= 1.030 H Urine Protein Trace H Urine Ketones Negative Urine Blood Negative Urine Nitrite Negative Urine Bilirubin Small H Urine Urobilinogen 0.2 Ur Leukocyte Esterase Negative Urine RBC Negative Urine WBC 0-2 Ur Epithelial Cells Few Urine Crystals Negative Urine Bacteria Negative Urine Casts 0-2 hyaline Urine Mucus Negative Ur Culture Indicated? No Urine Glucose 500 H 03/05/19 03/05/19 03/05/19 13:29 16:55 17:45 WBC RBC Hgb Hct MCV MCH MCHC RDW Plt Count MPV Immature Gran % Neutrophils % Lymphocytes % Monocytes % Eosinophils % Basophils % Absolute Neutrophils Absolute Lymphocytes Absolute Monocytes Absolute Eosinophils Absolute Basophils PT INR D-Dimer Sample Site Right radial pCO2 27 L pO2 55 L O2 Saturation 88 L ABG pH 7.48 H ABG HCO3 20 L ABG Total CO2 19 L ABG Base Excess -3.5 L FiO2 R/a Sodium Potassium Chloride Carbon Dioxide Anion Gap BUN Creatinine Estimated GFR/1.73 m2 Glucose Calcium Magnesium Total Bilirubin AST ALT Alkaline Phosphatase Troponin I < 0.05 < 0.05 NT-Pro-B Natriuret Pep Total Protein Albumin Vitamin B12 TSH Free T4 Urine Color Urine Clarity Urine pH Ur Specific [place] Urine Protein Urine Ketones Urine Blood Urine Nitrite Urine Bilirubin Urine Urobilinogen Ur Leukocyte Esterase Urine RBC Urine WBC Ur Epithelial Cells Urine Crystals Urine Bacteria Urine Casts Urine Mucus Ur Culture Indicated? Urine Glucose Last Vital Signs Temp 39.2 C H 03/05/19 17:34 Pulse 96 H 03/05/19 17:34 Resp 20 03/05/19 17:34 BP 113/65 03/05/19 17:34 Pulse Ox 93 L 03/05/19 17:34
[2019-03-05] MEDS: Normal Saline Flush 10 ML SYR (19:57)
[2019-03-05] MEDS: Acetaminophen 500 MG TAB PO (20:03)
[2019-03-05] MEDS: ROSUVASTATIN 20 MG TAB 40 MG PO (20:04)
[2019-03-05] MEDS: Warfarin 1 MG TAB 2.5 MG PO (20:04)
[2019-03-05] MEDS: dilTIAZem 30 MG TAB PO (20:04)
[2019-03-05] MEDS: PIPERACILLIN/TAZO 4.5 GM in Normal Saline 100 ML IVPB (20:04)
[2019-03-05 20:16] LABS: Lactate 2.1 mmol/L (0.6-1.4)
[2019-03-05] MEDS: Hydrocortisone SOD SUC. 100 MG VIAL IVP (20:16)
[2019-03-05] MEDS: VANCOMYCIN 1,500 MG in Normal Saline 500 ML 333.333 MG IV (20:57)
[2019-03-05 21:38] LABS: PTT Activated 22.6 sec (21.0-31.4)
[2019-03-05] MEDS: Melatonin 3 MG TAB 9 MG PO (23:07)
[2019-03-05] MEDS: levoFLOXacin 750 MG/150 ML BAG 100 MG IVPB (23:26)
[2019-03-06] VITALS (11 sets, daily range): BP systolic 100–151; BP diastolic 59–72; PULSE 55–91; RESP 16–20; TEMP 36.3–36.8; O2SAT 93–100
[2019-03-06] MEDS: PIPERACILLIN/TAZO 4.5 GM in Normal Saline 100 ML IVPB ×4 (02:17→20:31)
[2019-03-06] MEDS: Hydrocortisone SOD SUC. 100 MG VIAL IVP ×3 (04:28→20:30)
[2019-03-06] MEDS: Normal Saline Flush 10 ML SYR IVP ×5 (04:29→20:30)
[2019-03-06] MEDS: Liothyronine 5 MCG TAB PO (05:07)
[2019-03-06] MEDS: Levothyroxine 150 MCG TAB PO (05:07)
[2019-03-06 05:42] LABS: PTT Activated 141.8 sec (21.0-31.4)
[2019-03-06 07:13] LABS: Abs Immature Grans 0.02 k/cumm (0.0-0.09); Absolute Eosinophil Count 0.01 k/cumm (0.0-0.7); Absolute Lymphocyte Count 0.61 k/cumm (1.2-3.4); Absolute Monocyte Count 0.09 k/cumm (0.11-0.7); Absolute Neutrophil Count 4.02 k/cumm (1.2-6.7); Eosinophils % 0.2; HCT 24.6 % (40.0-50.0); HGB 7.7 g/dL (13.5-17.5); Immature Grans % 0.4; Lymphocytes % 12.8; Mean Corp. HGB Concentration 31.3 g/dL (32.0-36.0); Mean Corpuscular Hemoglobin 30.4 pg (27.0-33.0); Mean Corpuscular Volume 97.2 fL (80-95); Mean Platelet Volume 11.2 fL (8.0-11.0); Monocytes % 1.9; Neutrophils % 84.7; Platelet Count 200 x1000/uL (130-400); RBC 2.53 m/cumm (4.50-6.00); RBC Distribution Width 15.1 % (11.8-14.1); White Blood Cell Count 4.75 k/cumm (4.4-10.8)
[2019-03-06 07:14] LABS: INR 1.4 (0.9-1.1); Prothrombin Time 13.7 sec (9.3-11.0)
[2019-03-06 07:22] LABS: Anion Gap 9.8 mmol/L (3-11); BUN 37 mg/dL (7-18); CO2 20.2 mmol/L (21.0-32.0); CREATININE 1.45 mg/dL (0.70-1.30); Calcium 8.6 mg/dL (8.5-10.1); Chloride 104 mmol/L (98-107); Estimated GFR 47.57 (mL/min/1.73m2); Glucose 224 mg/dL (70-100); Sodium 134 mmol/L (136-145)
[2019-03-06 07:33] LABS: Troponin I < 0.05 ng/mL (0.00-0.06)
[2019-03-06] MEDS: Calcitonin-Salmon, Synthetic 3.7 ML BTL NS (08:23)
[2019-03-06] MEDS: sulfaSALAzine 500 MG TAB 1500 MG PO (08:25)
--- NOTE | 2019-03-06 08:26 | W.PM.PROGNOT ---
Date of Service Date of service: 03/06/19 Time of Service: 08:26 Assessment and Plan Assessment and plan (1) Hypoxia: Status: Acute Assessment and plan: Evidence of hypoxia, fever, and pulmonary abnormalities by imaging with CT in immunosuppressed patient - Official read with diffuse ground-glass opacities, differential to include infection, hemorrhage, edema, or interstitial PNA. Images were pushed to [facility] and reviewed with Pulmonary who agrees that given fever AND immunosuppression, likely to be infectious, and agrees with broad-spectrum coverage and recommends addition of coverage for PCP as well. - Consider infectious etiology - broad spectrum coverage with Pip-Jesus, with macrolide for atypical coverage. Per discussion with [facility] pulm, imaging not consistent with Staph infection - will discontinue Vancomycin. - Initiate Bactrim for PCP coverage - will discuss with ID as well regarding dosing and choice of Abx coverage given PRISCILLA. - No evidence of fungal infection. Would also consider viral infection. Rapid Flu negative. Consider viral panel pending patient's clinical status. - Also with hx DVT, off AC and with normal INR. Was initiated on heparin gtt but doubt PE at this time. Will discontinue anticoagulation - Pulm agrees with this assessment - Also on Humira, Sulfasalazine, and Leflunomide, with potential for infections as well as pulmonary processes such as ILD and Pulm toxicity - although patient is febrile. Will need pulm follow-up after hospitalization. (2) Fever: Status: Acute Assessment and plan: As above. Blood cultures pending. Urinalysis negative for infection. (3) Weakness: Status: Acute (4) PRISCILLA (acute kidney injury): Status: Acute Assessment and plan: In setting of illness and poor PO intake, likely pre-renal in etiology. Continue and increase hydration, monitor renal function, renally dose medications, and avoid nephrotoxins. - ECHO reviewed from 2018 - Normal LV and RV function. Increase IVFs due to increasing Lactate. (5) Hypertension: Status: Chronic Assessment and plan: Hold Spironolactone, ARB in setting of PRISCILLA, and reinitiate when able. Monitor bp - currently in the 100-110's range. (6) Hyperlipidemia: Status: Acute Assessment and plan: On statin therapy. (7) Diabetes mellitus, type II, insulin dependent: Status: Acute Assessment and plan: Continue basal insulin, maintain on sliding scale, and initiate ADA diet. (8) Obstructive sleep apnea: Status: Chronic Assessment and plan: Noted. Continue CPAP. (9) Coronary artery disease: Status: Chronic Assessment and plan: Underlying CAD in the setting of chronic inflammatory processes with RA and Crohn's Disease. Reportedly with 5 prior OK's, s/p multiple stents (Documented 7 by review of cardiology notes). Appears asymptomatic currently. - Continue statin, prn NTG. Does not appear to be on daily ASA or BB. - Currently with tachycardia, with either sinus arrhythmia with PACs or multi-focal Atach in setting of hypoxia and pulmonary process. Initiated short acting Cardizem with plans for titration. (10) Crohns disease: Status: Chronic Assessment and plan: On Humira, Mesalamine. Patient also has a history of RA, maintained on Leflunomide as well. (11) Anemia: Status: Chronic Assessment and plan: Iron studies with Anemia of Chronic disease. Stool occult blood pending. Also with abnormal thyroid function as potential etiology for worsening values. (12) DVT (deep venous thrombosis): Status: Chronic Assessment and plan: Hx DVT on anticoagulation, placed on hold for procedure last week that did not occur. Resumed Coumadin, with daily INR. (13) Hypothyroidism: Status: Chronic Assessment and plan: Appears to be over-replaced, with slightly depressed TSH and mild elevation in FT4. Continue Levothyroxine but decrease dose. Also on Cytomel. (14) Seizure disorder: Status: Chronic Assessment and plan: Apparent manifestation with Transient speech deficits and Headache per review of neurology notes (15) DVT prophylaxis: Status: Acute Assessment and plan: Heparin SC until INR is therapeutic. (16) Advance directive on file: Status: Acute Assessment and plan: Full Code. Subjective Subjective Interval history since last seen: 73-year-old man with past medical history significant for long-standing vertigo, as well as RA and Crohn's disease maintained chronically on immunosuppressive therapy, being admitted from [facility] Emergency Department on 03/05 with a diagnosis of weakness and falls. Mr. Padilla has a past medical history significant for RA and Crohn's disease maintained on daily steroids and immune suppressive therapy. He also has a significant cardiac history, with multiple MIs in the past with reported 7 stents, last 2 occurring in 2010 in [place]. His last stress test in 2018 showed a fixed defect. His other history includes DM, HTN, dyslipidemia, hypothyroidism, FRANCIE on CPAP therapy, ED status post penile implant, prior CVA, moderate AI, depression, and MGUS. He also has noted seizure disorder, manifested by headache and transient speech difficulties. He has a herniated disc in his lumbar region that was scheduled for potential intervention last Tuesday, not attended by the patient due to feeling ill. Mr. Padilla presented to the ED with complaints of vertigo type symptoms. 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 Ethel Ya of neurology back in September of this year. He was also noted to have gait imbalance that was deemed multifactorial in the setting of vertigo, orthostatic hypotension, and significant neuropathy. However the patient reported that while his vertigo has been constant, he had suffered a fall on the day prior to his admission. His in fact reports that he has been falling quite a bit at home recently. He has a prior history of DVT, and is anticoagulated chronically with Coumadin. However due to anticipation of the potential surgical procedure last Tuesday the patient's Coumadin had been on hold, and his INR at time of presentation was normal. Evaluation in the ED was noteworthy for mild PRISCILLA with a creatinine of 1.77, normal INR as previously stated, mildly depressed TSH with mildly elevated FT4, and a UA that while high in specific gravity was negative for any signs of infection or pyuria. BNP was also checked and relatively unremarkable at 615 (patient's prior values have been as high as 7000). Chest x-ray showed no acute pulmonary process. ECG was initially reported by the ED as AFib, but upon closer inspection noted to be either a Multifocal Tachycardia or a sinus arrhythmia with potential PACs. Patient was admitted for further evaluation and treatment of his ongoing weakness, with recent frequent falls. Shortly following admission Mr. Padilla was noted to be slightly hypoxic and spiked a fever. Subsequent ABG showed evidence of hypoxia, with a PaO2 of 55. CT of the chest was obtained and showed a diffuse 'mosaic pattern' with bronchiectasis, but no obvious infiltrate. The patient himself denied any subjective SOB or pulmonary symptoms, but had an obvious cough at time of exam. He also denied subjective fevers at home. Broad-spectrum antibiotics were initiated, and Mr. Padilla has remained afebrile since. He continues to complain of significant Lower Back Pain, unchanged and chronic. No overnight events reported. Remains afebrile. Exam Narrative Exam Narrative: General: Patient appears comfortable, AAOX3, NAD Neck: Supple CV: Regular, nontachycardic, S1S2, No rubs, murmurs, or gallops. Pulmonary: Small areas of bibasilar crackles, otherwise clear with good air entry and no wheezing. Abdomen: + Bowel Sounds, soft, nontender, nondistended Vascular: Mild lower extremity edema Psych: Normal mood and affect. Objective Objective Clinical Data: Abnormal lab results 03/05/19 03/05/19 03/05/19 Range/Units 10:30 10:30 10:30 RBC 3.22 L (4.50-6.00) m/cumm Hgb 10.1 L (13.5-17.5) g/dL Hct 31.2 L (40.0-50.0) % MCV 96.9 H (80-95) fL MCHC (32.0-36.0) g/dL RDW 15.3 H (11.8-14.1) % MPV (8.0-11.0) fL Absolute Neutrophils 7.77 H (1.2-6.7) k/cumm Absolute Lymphocytes (1.2-3.4) k/cumm Absolute Monocytes (0.11-0.7) k/cumm PT 11.5 H (9.3-11.0) sec INR (0.9-1.1) APTT (21.0-31.4) sec D-Dimer (<500) ng/mlFEU pCO2 (34-47) mmHg pO2 (83-108) mmHg O2 Saturation (94-98) % ABG pH (7.35-7.45) ABG HCO3 (22-28) mmol/L ABG Total CO2 (22-29) mmol/L ABG Base Excess (-3-3) mmol/L Sodium 134 L (136-145) mmol/L Carbon Dioxide (21.0-32.0) mmol/L Anion Gap 12.2 H (3-11) mmol/L BUN 43 H (7-18) mg/dL Creatinine 1.77 H (0.70-1.30) mg/dL Glucose 264 H (70-100) mg/dL Lactate (0.6-1.4) mmol/L NT-Pro-B Natriuret Pep ( - 299) pg/mL Albumin 2.7 L (3.4-5.0) g/dL Vitamin B12 1569 H (193-986) pg/mL TSH 0.35 L (0.36-3.74) uIU/mL Free T4 1.50 H (0.76-1.46) ng/dL Ur Specific [place] (1.005-1.025) Urine Protein (Negative) mg/dL Urine Bilirubin (Negative) Urine Glucose (Negative) mg/dL 03/05/19 03/05/19 03/05/19 Range/Units 10:30 10:30 12:20 RBC (4.50-6.00) m/cumm Hgb (13.5-17.5) g/dL Hct (40.0-50.0) % MCV (80-95) fL MCHC (32.0-36.0) g/dL RDW (11.8-14.1) % MPV (8.0-11.0) fL Absolute Neutrophils (1.2-6.7) k/cumm Absolute Lymphocytes (1.2-3.4) k/cumm Absolute Monocytes (0.11-0.7) k/cumm PT (9.3-11.0) sec INR (0.9-1.1) APTT (21.0-31.4) sec D-Dimer 1750 H (<500) ng/mlFEU pCO2 (34-47) mmHg pO2 (83-108) mmHg O2 Saturation (94-98) % ABG pH (7.35-7.45) ABG HCO3 (22-28) mmol/L ABG Total CO2 (22-29) mmol/L ABG Base Excess (-3-3) mmol/L Sodium (136-145) mmol/L Carbon Dioxide (21.0-32.0) mmol/L Anion Gap (3-11) mmol/L BUN (7-18) mg/dL Creatinine (0.70-1.30) mg/dL Glucose (70-100) mg/dL Lactate (0.6-1.4) mmol/L NT-Pro-B Natriuret Pep 615 H ( - 299) pg/mL Albumin (3.4-5.0) g/dL Vitamin B12 (193-986) pg/mL TSH (0.36-3.74) uIU/mL Free T4 (0.76-1.46) ng/dL Ur Specific [place] >= 1.030 H (1.005-1.025) Urine Protein Trace H (Negative) mg/dL Urine Bilirubin Small H (Negative) Urine Glucose 500 H (Negative) mg/dL 03/05/19 03/05/19 03/06/19 Range/Units 12:56 16:55 04:40 RBC (4.50-6.00) m/cumm Hgb (13.5-17.5) g/dL Hct (40.0-50.0) % MCV (80-95) fL MCHC (32.0-36.0) g/dL RDW (11.8-14.1) % MPV (8.0-11.0) fL Absolute Neutrophils (1.2-6.7) k/cumm Absolute Lymphocytes (1.2-3.4) k/cumm Absolute Monocytes (0.11-0.7) k/cumm PT (9.3-11.0) sec INR (0.9-1.1) APTT 141.8 H* D (21.0-31.4) sec D-Dimer (<500) ng/mlFEU pCO2 27 L (34-47) mmHg pO2 55 L (83-108) mmHg O2 Saturation 88 L (94-98) % ABG pH 7.48 H (7.35-7.45) ABG HCO3 20 L (22-28) mmol/L ABG Total CO2 19 L (22-29) mmol/L ABG Base Excess -3.5 L (-3-3) mmol/L Sodium (136-145) mmol/L Carbon Dioxide (21.0-32.0) mmol/L Anion Gap (3-11) mmol/L BUN (7-18) mg/dL Creatinine (0.70-1.30) mg/dL Glucose (70-100) mg/dL Lactate 2.1 H* (0.6-1.4) mmol/L NT-Pro-B Natriuret Pep ( - 299) pg/mL Albumin (3.4-5.0) g/dL Vitamin B12 (193-986) pg/mL TSH (0.36-3.74) uIU/mL Free T4 (0.76-1.46) ng/dL Ur Specific [place] (1.005-1.025) Urine Protein (Negative) mg/dL Urine Bilirubin (Negative) Urine Glucose (Negative) mg/dL 03/06/19 03/06/19 03/06/19 Range/Units 06:37 06:37 06:37 RBC 2.53 L (4.50-6.00) m/cumm Hgb 7.7 L D (13.5-17.5) g/dL Hct 24.6 L D (40.0-50.0) % MCV 97.2 H (80-95) fL MCHC 31.3 L (32.0-36.0) g/dL RDW 15.1 H (11.8-14.1) % MPV 11.2 H (8.0-11.0) fL Absolute Neutrophils (1.2-6.7) k/cumm Absolute Lymphocytes 0.61 L (1.2-3.4) k/cumm Absolute Monocytes 0.09 L (0.11-0.7) k/cumm PT 13.7 H (9.3-11.0) sec INR 1.4 H (0.9-1.1) APTT (21.0-31.4) sec D-Dimer (<500) ng/mlFEU pCO2 (34-47) mmHg pO2 (83-108) mmHg O2 Saturation (94-98) % ABG pH (7.35-7.45) ABG HCO3 (22-28) mmol/L ABG Total CO2 (22-29) mmol/L ABG Base Excess (-3-3) mmol/L Sodium 134 L (136-145) mmol/L Carbon Dioxide 20.2 L (21.0-32.0) mmol/L Anion Gap (3-11) mmol/L BUN 37 H (7-18) mg/dL Creatinine 1.45 H (0.70-1.30) mg/dL Glucose 224 H (70-100) mg/dL Lactate (0.6-1.4) mmol/L NT-Pro-B Natriuret Pep ( - 299) pg/mL Albumin (3.4-5.0) g/dL Vitamin B12 (193-986) pg/mL TSH (0.36-3.74) uIU/mL Free T4 (0.76-1.46) ng/dL Ur Specific [place] (1.005-1.025) Urine Protein (Negative) mg/dL Urine Bilirubin (Negative) Urine Glucose (Negative) mg/dL Vital Signs Temperature 36.6 C 03/06/19 04:00 Temperature Source Tympanic 03/06/19 04:00 Pulse 91 H 03/06/19 04:00 Pulse Rhythm Regular 03/06/19 04:30 Pulse 101 H 03/05/19 15:40 Respiratory Rate 17 03/06/19 04:00 Respiratory Effort Non-Labored 03/06/19 04:30 Respiratory Depth Normal 03/06/19 04:30 Respiratory Pattern Normal 03/06/19 04:30 Blood Pressure 109/72 03/06/19 04:00 Blood Pressure Mean 76 03/05/19 15:31 Blood Pressure Position Sitting 03/05/19 10:19 Pulse Oximetry 96 03/06/19 04:00 Oxygen Delivery Method Nasal Cannula 03/06/19 04:00 Oxygen Flow Rate 2 03/06/19 04:00 Pain Level 7 03/05/19 17:34 Comment 03/05/19 10:19 Intake & Output 03/05/19 03/05/19 03/06/19 11:59 23:59 11:59 Intake Total 1678.334 / 1678.334 599.3 / 599.3 Output Total 375 / 375 600 / 600 Balance 1303.334 / 1303.334 -0.7 / -0.7 Weight 91.2 kg 91.2 kg 94.6 kg Intake: IV 1158.334 / 1158.334 479.3 / 479.3 Oral 520 / 520 120 / 120 Output: Urine 375 / 375 600 / 600 Other: Urine Color Light Serene Urine Appearance Clear Clear Urine Odor Strong Stool Size Small Stool Characteristics Liquid Voiding Methods Urinal Urinal Incontinent Incontinent Laboratory Results WBC 4.75 k/cumm (4.4-10.8) D 03/06/19 06:37 RBC 2.53 m/cumm (4.50-6.00) L 03/06/19 06:37 Hgb 7.7 g/dL (13.5-17.5) L D 03/06/19 06:37 Hct 24.6 % (40.0-50.0) L D 03/06/19 06:37 MCV 97.2 fL (80-95) H 03/06/19 06:37 MCH 30.4 pg (27.0-33.0) 03/06/19 06:37 MCHC 31.3 g/dL (32.0-36.0) L 03/06/19 06:37 RDW 15.1 % (11.8-14.1) H 03/06/19 06:37 Plt Count 200 x1000/uL (130-400) D 03/06/19 06:37 MPV 11.2 fL (8.0-11.0) H 03/06/19 06:37 Immature Gran % 0.4 03/06/19 06:37 Neutrophils % 84.7 03/06/19 06:37 Lymphocytes % 12.8 03/06/19 06:37 Monocytes % 1.9 03/06/19 06:37 Eosinophils % 0.2 03/06/19 06:37 Basophils % 0.0 03/06/19 06:37 Absolute Neutrophils 4.02 k/cumm (1.2-6.7) 03/06/19 06:37 Absolute Lymphocytes 0.61 k/cumm (1.2-3.4) L 03/06/19 06:37 Absolute Monocytes 0.09 k/cumm (0.11-0.7) L 03/06/19 06:37 Absolute Eosinophils 0.01 k/cumm (0.0-0.7) 03/06/19 06:37 Absolute Basophils 0.00 k/cumm (0.0-0.2) 03/06/19 06:37 PT 13.7 sec (9.3-11.0) H 03/06/19 06:37 INR 1.4 (0.9-1.1) H 03/06/19 06:37 APTT 141.8 sec (21.0-31.4) H* D 03/06/19 04:40 D-Dimer 1750 ng/mlFEU (<500) H 03/05/19 10:30 Sample Site Right radial 03/05/19 16:55 pCO2 27 mmHg (34-47) L 03/05/19 16:55 pO2 55 mmHg (83-108) L 03/05/19 16:55 O2 Saturation 88 % (94-98) L 03/05/19 16:55 ABG pH 7.48 (7.35-7.45) H 03/05/19 16:55 ABG HCO3 20 mmol/L (22-28) L 03/05/19 16:55 ABG Total CO2 19 mmol/L (22-29) L 03/05/19 16:55 ABG Base Excess -3.5 mmol/L (-3-3) L 03/05/19 16:55 FiO2 R/a % 03/05/19 16:55 Sodium 134 mmol/L (136-145) L 03/06/19 06:37 Potassium 5.0 mmol/L (3.5-5.1) 03/06/19 06:37 Chloride 104 mmol/L (98-107) 03/06/19 06:37 Carbon Dioxide 20.2 mmol/L (21.0-32.0) L 03/06/19 06:37 Anion Gap 9.8 mmol/L (3-11) 03/06/19 06:37 BUN 37 mg/dL (7-18) H 03/06/19 06:37 Creatinine 1.45 mg/dL (0.70-1.30) H 03/06/19 06:37 Estimated GFR/1.73 m2 47.57 (mL/min/1.73m2) 03/06/19 06:37 Glucose 224 mg/dL (70-100) H 03/06/19 06:37 Lactate 2.1 mmol/L (0.6-1.4) H* 03/05/19 12:56 Calcium 8.6 mg/dL (8.5-10.1) 03/06/19 06:37 Magnesium 2.1 mg/dL (1.8-2.4) 03/05/19 10:30 Total Bilirubin 0.7 mg/dL (0.2-1.0) 03/05/19 10:30 AST 33 U/L (15-37) 03/05/19 10:30 ALT 37 U/L (16-63) 03/05/19 10:30 Alkaline Phosphatase 78 U/L (46-116) 03/05/19 10:30 Troponin I < 0.05 ng/mL (0.00-0.06) 03/06/19 06:37 NT-Pro-B Natriuret Pep 615 pg/mL (-299) H 03/05/19 10:30 Total Protein 8.1 g/dL (6.4-8.2) 03/05/19 10:30 Albumin 2.7 g/dL (3.4-5.0) L 03/05/19 10:30 Vitamin B12 1569 pg/mL (193-986) H 03/05/19 10:30 TSH 0.35 uIU/mL (0.36-3.74) L 03/05/19 10:30 Free T4 1.50 ng/dL (0.76-1.46) H 03/05/19 10:30 Urine Color Yellow (Yellow) 03/05/19 12:20 Urine Clarity Clear (Clear) 03/05/19 12:20 Urine pH 5.5 (5-8) 03/05/19 12:20 Ur Specific [place] >= 1.030 (1.005-1.025) H 03/05/19 12:20 Urine Protein Trace mg/dL (Negative) H 03/05/19 12:20 Urine Ketones Negative mg/dL (Negative) 03/05/19 12:20 Urine Blood Negative (Negative) 03/05/19 12:20 Urine Nitrite Negative (Negative) 03/05/19 12:20 Urine Bilirubin Small (Negative) H 03/05/19 12:20 Urine Urobilinogen 0.2 EU/dL (Up TO 0.2) 03/05/19 12:20 Ur Leukocyte Esterase Negative (Negative) 03/05/19 12:20 Urine RBC Negative (0-2) 03/05/19 12:20 Urine WBC 0-2 HPF (0-5) 03/05/19 12:20 Ur Epithelial Cells Few HPF (Negative) 03/05/19 12:20 Urine Crystals Negative HPF (Negative) 03/05/19 12:20 Urine Bacteria Negative HPF (Negative) 03/05/19 12:20 Urine Casts 0-2 hyaline LPF (Negative) 03/05/19 12:20 Urine Mucus Negative (Negative) 03/05/19 12:20 Ur Culture Indicated? No 03/05/19 12:20 Urine Glucose 500 mg/dL (Negative) H 03/05/19 12:20
[2019-03-06] MEDS: methylPREDNISolone 4 MG TAB 20 MG PO (08:27)
[2019-03-06] MEDS: Cholecalciferol (Vitamin D3) 1,000 UNIT TAB 2000 UNITS PO (08:27)
[2019-03-06] MEDS: FLUoxetine 10 MG TAB 30 MG PO (08:27)
[2019-03-06] MEDS: Acetaminophen 500 MG TAB PO ×2 (08:28→20:28)
[2019-03-06] MEDS: Calcium 600mg/Vit D 200U TAB 2 TAB PO (08:28)
[2019-03-06] MEDS: dilTIAZem 30 MG TAB PO ×3 (08:28→20:29)
[2019-03-06] MEDS: buPROPion-XL 150 MG TABCR PO (08:28)
[2019-03-06] MEDS: Finasteride 5 MG TAB PO (08:28)
[2019-03-06] MEDS: Docusate Sodium 100 MG CAP PO (08:30)
[2019-03-06] MEDS: Folic Acid 1 MG TAB PO (08:30)
[2019-03-06] MEDS: Pantoprazole 40 MG TABCR PO (08:30)
[2019-03-06] MEDS: Tamsulosin 0.4 MG CAPCR PO (08:30)
[2019-03-06] MEDS: Insulin Aspart 300 UNITS/3 ML PEN SC ×3 (08:31→17:18)
[2019-03-06] MEDS: Normal Saline 1,000 ML 100 ML IV ×2 (08:32→23:44)
[2019-03-06 08:38] LABS: Iron 54 ug/dL (50-175); Total Iron Binding Capacity 147 ug/dL (250-450); Transferrin Sat 37 % (20-55)
[2019-03-06 09:04] LABS: Vitamin B12 1113 pg/mL (193-986)
[2019-03-06 09:12] LABS: Ferritin > 1000 ng/mL (8-388); Folate > 20.0 ng/mL (8.6-20.0)
--- NOTE | 2019-03-06 09:14 | NUR.NOTE ---
Patient takes a large amount of oral medication, ten minutes after receiving oral medication patient had an episode of emesis (100cc) . Some pill fragments were noted in emesis but it was impossible to distinguish which medications they were. Charge nurse aware, awaiting orders. Nursing Note:
[2019-03-06] MEDS: AZITHROMYCIN 500 MG in Normal Saline 500 ML 166.6 MG IVPB (10:48)
[2019-03-06 11:25] LABS: Lactate 2.9 mmol/L (0.6-1.4)
[2019-03-06] MEDS: MORPHine 2 MG/ML SYR IVP ×2 (14:43→19:22)
--- NOTE | 2019-03-06 16:08 | PHARADMIT ---
Addendum entered by Oscar Mccullough III 03/17/19 13:59: Pharmacy Note Subjective Objective BP-165/90 HR-62 INR-2.0 Na-135 SCr-1.39 H&H,WBC,Plts-OK Wgt-92.9 KG Large BMs Assessment Bactrim, Augmentin & Azithromycin continue to full 14 days Plan No new MD note yet Addendum entered by Yissel Darling 03/15/19 12:24: Pharmacy Note Subjective Pt states breathing is better but diarrhea bothering him Objective BP 173/73, HR 92, INR 3.8, SCr 1.41 Assessment Warfarin on hold (started bactrim), losartan (home med) on hold, bactrim started for PJP prophylaxis - day #5, IV azithromycin changed to PO, Zosyn dc'd -- changed to oral augmentin Patient has several drugs on home med list capable of producing pulmonary toxicity - all have been on hold except mesalamine -- although not as common as sulfasalazine, still possible, notified MD... for more info: uptodate - pulmonary complications of inflammatory bowel disease Plan Continue PO abx, monitor INR, will change methylprednisolone taper to decreased dose to start 03/16 Addendum entered by Lynette Goff 03/13/19 15:23: Pharmacy Note Subjective pt on lovenox bridging to warfarin Objective lytes ok, INR 1.3 Assessment azithromycin and zosyn continue (day 8) insulin dose increased Plan follow INR, ABX stop date? Keep eye on Methylprednisolone taper....needs to decrease on 03/16/19 Addendum entered by Taylor Nunez 03/12/19 14:03: Pharmacy Note Subjective Objective BP-160/92 other VS okay INR-1.4 h/h-9.8/29.8 BG-288 BNP-5403 Assessment bactrim started yesterday per [facility] recommendations to cover for PJP azithromycin and zosyn continue (day 7) MD plans on continuing for now insulin detemir ordered Q24H warfarin restarted (bridge with enoxaparin) metoprolol IVP PRN cancelled Plan Keep eye on Methylprednisolone taper....needs to decrease on 03/16/19 Addendum entered by Nguyen Cesar 03/11/19 14:33: Afebrile, pain 11/15, weaning oxygen, lytes good-repleted, INR 1.7, BG 87, H/H 10.2/31.7, only one loose stool today Blood sugar and FSBS improved with insulin changes INR down but may not resume Warfarin Surgery consult for rectal bleeding: Hx Chrons disease, does not need EGD or colonscopy at this time-will follow up w/GI doc, H/H ok Same Antibiotics continue day#6 (Azith 500mg IV and Zosyn 4.5gm per MD)...maybe ask about oral Azith to complete therapy of 7 days Consider restarting Arava and Sulfasalazine Chest xray: improved Keep eye on Methylprednisolone taper....needs to decrease on 03/16/19 No med changes today Pain control: OxyIR, MS IVP, APAP-watch totals Watch for d/c of IV Anbx day#7 on 03/12/19 Addendum entered by Nguyen Cesar 03/10/19 10:32: Pharmacy Note Subjective c/o SOB,tired, on oxygen, neck & shoulder pain Warfarin @ home believed to be for Hx DVT, although possibly also A-Fib (MD checking to see if new onset A-fib) Objective Afebrile, BP 191/69, heme stool positive, INR down 2.5, H/H same 9.1/28.4, pain 8/10 K+ 3.0, Mag 1.7, BG 63 Assessment C.Diff pending Potassium and Mag will need replacing today Surgery consult for bleed, may not be able to resume Warfarin IV Azithromycin 500mg and Zosyn day# 5 Insulin changes ?may need to address BP control scheduled APAP and as needed...watch totals, not using Diclofenac gel or Oxy IR for pain, did use 1 dose of IVP Morphine overnight Pt's own Arava dc'd, Sulfasalazine dc'd....still on Mesalamine IV Solu-cortef dc'd Plan Repeat chest xray today and then will de-escalate IV Abx if able (Procalcitonin not ordered...due to complicated immunosuppression, levels will not be helpful?) Keep eye on Methylprednisolone taper....needs to decrease on 03/16/19 follow INR, diabetes, BP meds, electrolytes, pain control will go home when ready Addendum entered by Taylor Nunez 03/09/19 17:17: Pharmacy Note Subjective Objective BP-158/77 other VS okay weight-99.2(up) K+2.7 INR 4.1 BG-43 Assessment insulin detemir dosing decreased PO potassium replacement given zosyn (day 5 starts this evening) and azithromycin (day 4)continue lactobacillus ordered TID, po oxycodone ordered PRN, IV morphine frequency changed from Q4H PRN to Q6H PRN, spironolactone ordered, hydrocortisone discontinued Plan watch INR/possible restart of warfarin once therapeutic watch K+ levels and BG Addendum entered by Oscar Mccullough III 03/08/19 16:30: Pharmacy Note Subjective Patient has Hx of RA & Crohn's and is chronically immunosuppressed. On Humira, Leflunomide and Sulfasalazine. Presents with Pneumonia and fever. Objective BP-167/74 Pain:8/10 INR-3.0 SCr-1.26 H&H-9.0/28.6 (after transfusion), Wgt-up (2.7kg) Assessment Zosyn & Azithromycin continues, Warfarin and Heparin held. Has Hx of DVTs check with MD in AM about restarting Warfarin Spironolactone & Ibesartan held due to PRISCILLA. Plan Ask MD about Warfarin restart, Watch for ABX switch, follow renal function Original Note: Admission Pharmacy Clinical Review Code Status Full Code Current Weight 94.6 kg Renally Cleared and Narrow Therapeutic Index Meds CrCl 49 ml/min QTc Value / Action Taken QTc 444 BP Control, Fever BP 117/72, tmax 39.2 on 03/05 Electrolytes reviewed Na 134, K+ 5.0, Mag 2.1 DVT Prophylaxis Heparin infusion changed to q8h Opiate Usage / Scheduled Bowel Regimen Ordered no, no Plt/SCr for Heparin / Enoxaparin Plt 200 (down from 308) INR for Warfarin INR 1.4 H/H stable, WBC/Bands H/H 7.7/24.6 (down from 10.1), WBC 4.75 Antibiotic appropriateness Empiric coverage started with Pip-Jesus, Azithromycin (changed from levoflox for atypical coverage), plus vanco -- [place] [facility] [place]anco was dc'd as no sign of staph infxn PCP coverage is to be started but drug of choice is Bactrim (15-20mg/kg/day of trimethoprim component in 4 divided doses) -- each dose would need to be made with 500ml of D5W resulting in 2L per day and this patient is diabetic; oral dosage would require 2.5 tablets 4 times a day (10 tablets total) but pt is currently in PRISCILLA and has a K+ level of 5.0 Possible alternatives = Atovaquone liquid, clinda +primaquine, pentamidine, or dapsone + TMP depending on disease severity HOWEVER the underlined drugs are NOT on our formulary and would need to ordered... (keep in mind duration for all PCP therapy is 21 days) Update: hold off PCP therapy for now, will revisit if pt worsens Cultures and Sensitivities Surgical ABX d/c within 24 hr DM control / Insulin Dosing Aspart and detemir BID Heart Failure (Check EF%) (СЕРГЕЙ's, B-Block, Diuretics) History of 5 MIs with 7 reported stents; irbesartan and spironolactone - both held in setting of PRISCILLA; no ASA or BB on board... started on short acting cardizem with metoprolol IVP prn IV to PO Switch Home Meds Reviewed Sulfasalazine + Mesalamine -- duplication in therapy? Has Chron's + RA but cannot find any evidence why both would be appropriate... Home Meds Not Ordered Irbesartan, spironoloctone, Humira -- per note left in pharmacy from nursing Anuel has been dc'd and is receiving different infusion [place] [facility] Staph swab -- will restart vanco if + result
--- NOTE | 2019-03-06 17:00 | IN_ITS ---
Date of service: 03/06/19 Time of Service: 09:40 PT Notes Inpatient Physical Therapy Evaluation Date: 03/06/2019 Referring Doctor: Kirill Mtz MD PT Orders: PT CONSULT: Non-urgent Precautions: Fall. Standard. Activity as tolerated. Patient Profile/Admitting Diagnosis: Patient is a 73-year-old male with past medical history significant for chronic vertigo as well as RA and Crohn's disease maintained on steroids and immunosuppressive therapy. Patient is diagnosed with Hypoxia, fever, acute kidney injury, weakness, and falls. PMHX: Medical History Adrenal insufficiency (Chronic) Benign prostatic hyperplasia (Acute 07/03/15) Coronary artery disease (Chronic) Crohns disease (Chronic) Diabetes mellitus, type II, insulin dependent (Acute) DVT (deep venous thrombosis) (Chronic) Erectile dysfunction of organic origin (Acute 07/03/15) GERD (gastroesophageal reflux disease) GI bleed (Chronic) Graves disease (Acute) Hyperlipidemia (Acute) Hypertension (Chronic) Hypothyroidism (Chronic) Obstructive sleep apnea (Chronic) Peripheral neuropathy (Chronic) Rheumatoid arthritis (Chronic) Sensorineural hearing loss, bilateral (Acute 01/28/15) Stroke (Chronic) 2018 Traumatic compression fracture of T12 thoracic vertebra (Acute) Vitamin B12 deficiency (Acute) Vitamin B6 deficiency (Acute) Vitamin D deficiency (Acute) Social History/Home Situation: Patient lives with his in a private home with no steps to enter his home. Patient has been non-ambulatory for several months now. His works during the day and patient is left alone at home. He has been on and off PT services for low back pain issues, falls, and imapired mobility. Equipment Owned/DME: Electric wheelchair, FWW, SC Subjective: Patient reports he is frustrated because his dizziness/vertigo continues to be without reason, or treatment. He reports shortness of breath with transferring. He is agreeable to PT evaluation. Objective: General Observation: Patient is seen laying supine in bed with HOB elevated 60 degrees. He has bilateral IVs in UEs. He was wearing potline monitor. He was on 1.5 L/min supplemental O2. Mental Status: Alert and oriented x 4 Pain: Diffuse pain all over. ROM: Lower extremities: Grossly WFL bilaterally. Strength: Right Lower Extremity: Hip flexors 3/5. Hip abductors 5/5. Knee extensors 3/5. Ankle dorsiflexors 5/5. Ankle plantarflexors 5/5. Left Lower Extremity:Hip flexors 4/5. Hip abductors 5/5. Knee extensors 5/5. Ankle dorsiflexors 5/5. Ankle plantarflexors 5/5. Bed Mobility/Transfers: Rolling Independent Supine to sit Independent Sit to supine Independent Sit to stand Min x 2 Stand to sit Min x 2 Bed to chair Total Chair to bed Total Gait: and has only been able to perform with FWW and minimal assist of 2. Balance: Static Sitting: Good Dynamic Sitting: Fair Static Standing: Poor Dynamic Standing: Poor Special Tests: Mobility Limitations Standardized Measure [facility] AM-PAC 6 clicks Basic Mobility Inpatient Short Form: Raw Score: 13 CMS Score: 65% deficit Informed Consent/Education: Patient instructed in purpose of PT consult and plan of care. Assessment: Patient is a 73 year old male admitted with hypoxia, and PRISCILLA. He previously used an electric wheelchair for ambulation and had a fall recently during a transfer from his bed. He is severely deconditioned. He is unable to transfer sit-stand independently which he will need to do to transfer. He is showing signs of fear of falling and this is a limiting factor for his prognosis. his He has a very low level of motivation. His prognosis is poor. Patient presents with clinical signs and symptoms consistent with current/admitting diagnoses that have resulted to mobility limitations, gait instability, generalized weakness, and impairment of motor control as demonstrated by the following impairment level findings: 1. Decreased strength to B LE major muscle groups 2. Impaired sitting/standing balance 3. Impaired activity tolerance 4. Limitation of joint range of motion in B LE. Impairments are contributing to the following functional limitations: 1. Dependent bed mobility skills 2. Increased dependence with transfers 3. Inability to safely ambulate without assistive device and physical assistance 4. Increase completion time for mobility ADL performance 5. Increased fall risk 6. Inability to negotiate steps alone safely Patient is assessed as a 60315 high complexity based on the following: History: Patient is a 73-year-old female with past medical history as indicated above. He is diagnosed with Hypoxia, fever, acute kidney injury, weakness, and falls Examination: Demonstrable impairment in strength, balance, and range of motion with underlying impairments and functional limitations as documented above Presentation:Evolving Decision Makin high complexity Goals: Goals X1 week 1. Supine-Sit independent 2. Sit-Supine independent 3. Sit-Stand independent 4. Stand-Sit independent 5. Independent with pivot transfer using a FWW Plan of Care/Treatment Plan: 1-2x/day, 7 days/week x 1 week. Plan of care has been reviewed with the INSULATION BOARD COATER OPERATOR providing the service under Physical Therapy direction. Initiate Physical Therapy intervention for strengthening, bed mobility, transfers, gait, stairs, balance training, use of assistive device. DISCHARGE RECOMMENDATIONS: Patient is recommended for discharge to home under the care of his . He will continue the use of his electric wheelchair. Home health PT/OT services are recommended to address equipment needs and perform a home safety assessment. TREATMENT CODE/TIME: 80981 x 50 minutes beginning at 9:40 AM. Thank you very much for this referral. Seb Nina, [facility] In consultation with: Nadia Mccormick PT, DPT, CLT [facility]
[2019-03-06] MEDS: Heparin 5,000 UNITS/ML VIAL 5000 UNITS SC ×2 (17:20→22:34)
--- NOTE | 2019-03-06 19:00 | PT.INTREAT ---
Date of service: 03/06/19 Time of Service: 15:42 PT Notes Inpatient Physical Therapy Treatment Note [facility] Date: 03/06/2019 PRECAUTIONS: Fall. Droplet precautions. Activity as tolerated. SUBJECTIVE: Patient is agreeable to an afternoon session. He is thankful about getting his morphine an hour ago. He states he would not be able to do exercises with PT if he did not have the morphine. present in the room throughout session. OBJECTIVE: Patient continues to be on telemetry monitoring. On 2 L/min of oxygen via NC. IV in L UE. PAIN: 8/10 on low back area. BED MOBILITY/TRANSFERS Rolling L/R: Minimal assist of 2 Supine-sit: Minimal assist of 2 Sit-supine: Minimal assist of 2 Sit-stand: Minimal assist of 2 Stand-sit: Minimal assist of 2 Bed-Chair: NT Chair-bed: NT GAIT: Patient is fearful of falling and has refused any out of bed activities this orning and afternoon. THEREX: Patient tolerated edge of bed ROM exercises consisting of seated marches, bilateral leg raises, heel-toe raises x 10 each without undue pain on the back. Patient needed intermittent rests in between each exercises. ASSESSMENT: Patient will continue to beenfit from skilled PT serices in order to achieve initially set goals. PLAN: Continue per PT POC. Patient will benefit from home health PT services in order to progress mobility level using least restrictive assistive ambulatory device, assess home safety, identify additional equipment needs, and establish a functional maintenance program that will increase ability of patient to remain at home. TREATMENT CODE/TIME: 26577 x 23 minutes beginning at 14:42 PM.
[2019-03-06] MEDS: Warfarin 1 MG TAB 2.5 MG PO (20:29)
[2019-03-06] MEDS: ROSUVASTATIN 20 MG TAB 40 MG PO (20:29)
--- NOTE | 2019-03-06 20:29 | PDOC.CMIN ---
Care Management Initial Assess REASON FOR HOSPITALIZATION:: Vertigo, Falls, Hypoxia PAST MEDICAL HISTORY/PAST SURGICAL HISTORY:: Crohn's colitis, Dyspnea, Diabetes-Insulin Dependent, high cholesterol, CT(s), FRANCIE, hypothyroidism, RA, restless leg syndrome, allergic rhinitis, CAD, recurrent DVT, Seizure Disorder, colitis, ongoing weakness of bilat LE secondary to bad knees, coronary artery stent(s), Adrenal insufficiency, benign prostatic hyperplasia, DM type 2 insulin dependent, neuropathy in LE, ED organic origin, GERD, GI Bleed, Graves disease, hyperlipidemia, hypertension, Vitamin deficiencies: B12, B6, D. T12 compression fracture thoracic vertebra, lumbosacral spine surgery, penile implant. Per MD documentation: PMH significant for RA and Crohn's disease maintained on daily steroids and immune suppressive therapy. He also has a significant cardiac history, with multiple MIs in the past with reported 7 stents, last 2 occurring in 2010 in [place]. His last stress test in 2017 showed a fixed defect. His other history includes DM, HTN, dyslipidemia, hypothyroidism, FRANCIE on CPAP therapy, ED status post penile implant, prior CVA, moderate AI, depression, and MGUS. He also has noted seizure disorder, manifested by headache and transient speech difficulties. He has a herniated disc in his lumbar region that was scheduled for potential intervention last Tuesday, not attended by the patient due to feeling ill. The patient presents to the ED with complaints of vertigo type symptoms. 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 Ethel Ya of neurology back in September of this year. He was also noted to have gait imbalance that was deemed multifactorial in the setting of vertigo, orthostatic hypotension, and significant neuropathy. However the patient reports that while his vertigo has been constant, he had suffered a fall on the day prior to his admission. His in fact reports that he has been falling quite a bit at home recently. He has a prior history of DVT, and is anticoagulated chronically with Coumadin. However due to anticipation of the potential surgical procedure last Tuesday the patient's Coumadin had been on hold, and his INR at time of presentation was normal. Evaluation in the ED was noteworthy for mild PRISCILLA with a creatinine of 1.77, normal INR as previously stated, mildly depressed TSH with mildly elevated FT4, and a UA that while high and specific gravity was negative for any signs of infection or pyuria. BNP was also checked and relatively unremarkable at 615 (patient's prior values have been as high as 7000). Chest x-ray showed no acute pulmonary process. ECG was initially reported by the ED as A. fib, but upon closer inspection noted to be a sinus arrhythmia with potential PACs. Patient was admitted for further evaluation and treatment of his ongoing weakness, with recent frequent falls. Shortly following admission Mr. Padilla was noted to be slightly hypoxic and spiked a fever. Subsequent ABG showed evidence of hypoxia, with a PaO2 of 55. CT of the chest was obtained and showed a diffuse 'mosaic pattern' with bronchiectasis, but no obvious infiltrate. The patient himself denied any subjective SOB or pulmonary symptoms, but had an obvious cough at time of exam. He also denied subjective fevers at home. PREVIOUS FUNCTIONAL STATUS/SOCIAL/FAMILY SUPPORTS:: Miguel resides with his , Nohemi in [place], [place]. 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 His works during the day and patient is left alone at home. He has periods of skilled services in home setting for PT, multiple times for low back pain issues, falls, and impaired mobility. CURRENT FUNCTIONAL STATUS:: Miguel is working with PT and then later in the day he is resting when CM attempts to meet with him. ADVANCE DIRECTIVES:: None on file. Has patient been provided with information about the portal?: Yes Did the patient sign up for the portal?: Yes CODE STATUS:: Full Code INSURANCE COVERAGE / FINANCIAL ISSUES:: Medicare, AARP CURRENT HOME/COMMUNITY SERVICES/EQUIPMENT:: CPAP/BIPAP? Electric scooter, cane, Electric wheelchair, FWW, SC PRIMARY CARE PHYSICIAN:: Korin Florian POTENTIAL DISCHARGE NEEDS:: Evaluation for further needs, follow up appointments. PATIENT/FAMILY EDUCATION NEEDS:: Review of discharge instructions, discuss Ask Me Three. ANTICIPATED BARRIERS TO DISCHARGE:: None identified. TRANSPORTATION:: TBD by disposition and mobility. PLAN:: Miguel will continue to be closely monitored and treated at this time. Anticipate possible Palliative Care consult, anticipate he will require VNA supports upon discharge; CM will continue to follow and support discharge planning considerations.
[2019-03-06] MEDS: Melatonin 3 MG TAB 9 MG PO (23:44)
[2019-03-07] VITALS (17 sets, daily range): BP systolic 113–150; BP diastolic 57–82; PULSE 51–74; RESP 16–18; TEMP 35.9–36.6; O2SAT 93–98
[2019-03-07] MEDS: PIPERACILLIN/TAZO 4.5 GM in Normal Saline 100 ML IVPB ×4 (01:52→20:16)
[2019-03-07] MEDS: Levothyroxine 150 MCG TAB PO (06:32)
[2019-03-07] MEDS: Heparin 5,000 UNITS/ML VIAL 5000 UNITS SC ×3 (06:32→21:58)
[2019-03-07] MEDS: Liothyronine 5 MCG TAB PO (06:32)
[2019-03-07] MEDS: MORPHine 2 MG/ML SYR IVP ×2 (06:43→12:40)
[2019-03-07] MEDS: Normal Saline Flush 10 ML SYR IVP ×4 (06:43→20:17)
[2019-03-07 08:08] LABS: Lactate 1.2 mmol/L (0.6-1.4)
[2019-03-07 08:11] LABS: Abs Immature Grans 0.01 k/cumm (0.0-0.09); Absolute Lymphocyte Count 0.62 k/cumm (1.2-3.4); Absolute Monocyte Count 0.28 k/cumm (0.11-0.7); Absolute Neutrophil Count 4.55 k/cumm (1.2-6.7); HCT 22.5 % (40.0-50.0); HGB 7.2 g/dL (13.5-17.5); Immature Grans % 0.2; Lymphocytes % 11.4; Mean Platelet Volume 10.5 fL (8.0-11.0); Monocytes % 5.1; Neutrophils % 83.3; Platelet Count 223 x1000/uL (130-400); RBC 2.32 m/cumm (4.50-6.00); RBC Distribution Width 15.1 % (11.8-14.1); White Blood Cell Count 5.46 k/cumm (4.4-10.8)
[2019-03-07 08:24] LABS: BUN 32 mg/dL (7-18); CREATININE 1.41 mg/dL (0.70-1.30); Calcium 8.2 mg/dL (8.5-10.1); Chloride 109 mmol/L (98-107); Estimated GFR 49.13 (mL/min/1.73m2); Glucose 86 mg/dL (70-100); INR 1.6 (0.9-1.1); Potassium 3.7 mmol/L (3.5-5.1); Prothrombin Time 16.2 sec (9.3-11.0); Sodium 140 mmol/L (136-145)
[2019-03-07 08:30] LABS: Anisocytosis 1+; Diff Comment RBC Morph Reviewed; Polychromasia Present
[2019-03-07] MEDS: Hydrocortisone SOD SUC. 100 MG VIAL IVP ×2 (08:58→20:16)
[2019-03-07] MEDS: buPROPion-XL 150 MG TABCR PO (08:59)
[2019-03-07] MEDS: FLUoxetine 10 MG TAB 30 MG PO (09:01)
[2019-03-07] MEDS: Tamsulosin 0.4 MG CAPCR PO (09:01)
[2019-03-07] MEDS: Cholecalciferol (Vitamin D3) 1,000 UNIT TAB 2000 UNITS PO (09:01)
[2019-03-07] MEDS: Finasteride 5 MG TAB PO (09:02)
[2019-03-07] MEDS: Calcium 600mg/Vit D 200U TAB 2 TAB PO (09:02)
[2019-03-07] MEDS: Pantoprazole 40 MG TABCR PO (09:02)
[2019-03-07] MEDS: sulfaSALAzine 500 MG TAB 1500 MG PO (09:02)
[2019-03-07] MEDS: Folic Acid 1 MG TAB PO (09:02)
[2019-03-07] MEDS: dilTIAZem 30 MG TAB PO ×2 (09:03→15:00)
[2019-03-07] MEDS: Calcitonin-Salmon, Synthetic 3.7 ML BTL NS (09:03)
--- NOTE | 2019-03-07 09:53 | CMPROGNOTE_ITS ---
Care Management Progress Note S/O: Miguel was lying in bed, sleeping. His , Nohemi was at his bedside in a recliner chair, sleeping as well. CM did not disturb, and continues to follow. A: 73 year old male admitted to [facility] 03/05/19 for Vertigo, Falls, hypoxia P: Miguel will continue to be closely monitored and treated at this time. Anticipate possible Palliative Care consult, anticipate he will require VNA supports upon discharge; CM will continue to follow and support discharge planning considerations.
[2019-03-07] MEDS: Normal Saline 1,000 ML 150 ML IV ×3 (10:09→20:17)
[2019-03-07] MEDS: AZITHROMYCIN 500 MG in Normal Saline 250 ML 83.302 MG IVPB (10:09)
--- NOTE | 2019-03-07 11:54 | NUR.NOTE ---
Nursing Note: 1150: called [facility] pharmacy in [place] to verify pt's medications. per pharmacy ([facility]) pt picked up last dosing on 01/30/2019 with instructions to take 4mg tabs x 4 1/2 tabs x 14 days daily, decrease by 1/2 tab every 14 days until prescription completed. information provided to CC Pretty Gipson RN
[2019-03-07] MEDS: diphenhydrAMINE 25 MG CAP PO (12:39)
[2019-03-07] MEDS: Acetaminophen 325 MG TAB 650 MG PO (12:40)
[2019-03-07] MEDS: Insulin Aspart 300 UNITS/3 ML PEN SC ×2 (12:44→17:00)
[2019-03-07] MEDS: Magnesium Oxide 400 MG TAB 800 MG PO (15:00)
[2019-03-07] MEDS: POTASSIUM CHLORIDE 20 MEQ, POTASSIUM CHLORIDE 10 MEQ 30 MEQ PO (15:00)
[2019-03-07 15:04] LABS: Streptococcus Pneumoniae Ag, U Negative (Negative)
--- NOTE | 2019-03-07 15:04 | PT.INNT ---
Date of service: 03/07/19 Time of Service: 15:04 PT Notes 03/07/2019 Hold afternoon PT session, as patient receiving blood. Will attempt to resume PT services tomorrow morning.
--- NOTE | 2019-03-07 15:05 | PT.INTREAT ---
Date of service: 03/07/19 Time of Service: 08:45 PT Notes Inpatient Physical Therapy Treatment Note [facility] Date: 03/07/2019 PRECAUTIONS: Fall, Droplet SUBJECTIVE: Miguel states that he is feeling significantly better, he is agreeable to participating in PT, stating that he needs to have a bowel movement. OBJECTIVE: PAIN: Patient reports 8?9/10 pain to nursing, who is present during PT session. BED MOBILITY/TRANSFERS Sit-stand: CGA Stand-sit: CGA GAIT Assistive Device: FWW Weight bearing: Full Assist: CGA + SBA Distance: 10' x2 Deviation: Decreased adriana and step height TOILETING: Patient toileted with Max A ASSESSMENT: Patient tolerated session well, with complaint of increased fatigue with gait training. He was able to tolerate a progression in gait distance with FWW support and CGA + SBA. He would benefit from continued gait and transfer training and general conditioning for improved activity tolerance and mobility. PLAN: Continue with PTs POC TREATMENT CODE/TIME: 30 minutes; 29123 x2
--- NOTE | 2019-03-07 15:25 | W.PM.PROGNOT ---
Date of Service Date of service: 03/07/19 Time of Service: 15:25 Assessment and Plan Assessment and plan (1) Hypoxia: Status: Acute Assessment and plan: Evidence of hypoxia, fever, and pulmonary abnormalities by imaging with CT in immunosuppressed patient - Official read with diffuse ground-glass opacities, differential to include infection, hemorrhage, edema, or interstitial PNA. Images were pushed to [facility] and reviewed with Pulmonary on 03/06 who agrees that given fever AND immunosuppression, likely to be infectious, and agrees with broad-spectrum coverage. Discussed potential for PCP coverage with ID, but recommended to wait and monitor patient clinically on current antibiotic regimen prior to determination for potential PCP coverage or Bronch with BAL. - Consider infectious etiology - broad spectrum coverage with Pip-Jesus, with macrolide for atypical coverage, currently day #2. Per discussion with pulm, imaging not consistent with Staph infection - Vancomycin d/c'd. - No evidence of fungal infection. Would also consider viral infection. Rapid Flu negative. Consider viral panel pending patient's clinical status. - Also with hx DVT, off AC and with normal INR. Was initiated on heparin gtt but doubt PE at this time, and Pulm agrees with this assessment. Currently on DVT prophylaxis only, with coumadin reinitiated. - Also on Humira, Sulfasalazine, and Leflunomide, with potential for infections as well as pulmonary processes such as ILD and Pulm toxicity - although patient was febrile. Will need pulm follow-up after hospitalization. Status appears improved today. (2) Fever: Status: Acute Assessment and plan: As above. Blood cultures negative. Urinalysis negative for infection. (3) Weakness: Status: Acute (4) PRISCILLA (acute kidney injury): Status: Acute Assessment and plan: In setting of illness and poor PO intake, likely pre-renal in etiology. Continue hydration, monitor renal function, renally dose medications, and avoid nephrotoxins. - ECHO reviewed from 2018 - Normal LV and RV function. Increase IVFs due to increasing Lactate. - Creatinine stable at 1.4 currently. (5) Hypertension: Status: Chronic Assessment and plan: Hold Spironolactone, ARB in setting of PRISCILLA, and reinitiate when able. Monitor bp - improving in the 130-150's range. (6) Hyperlipidemia: Status: Acute Assessment and plan: On statin therapy. (7) Diabetes mellitus, type II, insulin dependent: Status: Acute Assessment and plan: Continue basal insulin, maintain on sliding scale, and initiate ADA diet. (8) Obstructive sleep apnea: Status: Chronic Assessment and plan: Noted. Continue CPAP. (9) Coronary artery disease: Status: Chronic Assessment and plan: Underlying CAD in the setting of chronic inflammatory processes with RA and Crohn's Disease. Reportedly with 5 prior RI's, s/p multiple stents (Documented 7 by review of cardiology notes). Appears asymptomatic currently. - Continue statin, prn NTG. Does not appear to be on daily ASA or BB. - Initially with tachycardia, with either sinus arrhythmia with PACs or multi-focal Atach in setting of hypoxia and pulmonary process. Initiated short acting Cardizem, but now with bradycardia and rebound from hypotension as symptoms are improving - plans for discontinuation and reinitiation of Amlodipine. - Given Hgb <8 with concurrent CAD will transfuse X1 unit today. (10) Crohns disease: Status: Chronic Assessment and plan: On Humira, Mesalamine. Patient also has a history of RA, maintained on Leflunomide as well. (11) Anemia: Status: Chronic Assessment and plan: Iron studies with Anemia of Chronic disease. Stool occult blood negative. Also with abnormal thyroid function as potential etiology for worsening values. - Given underlying CAD goal for Hgb >8. Will transfuse 1 unit today. (12) DVT (deep venous thrombosis): Status: Chronic Assessment and plan: Hx DVT on anticoagulation, placed on hold for procedure last week that did not occur. Resumed Coumadin, with daily INR. (13) Hypothyroidism: Status: Chronic Assessment and plan: Appears to be over-replaced, with slightly depressed TSH and mild elevation in FT4. Continue Levothyroxine but decrease dose. Also on Cytomel. (14) Seizure disorder: Status: Chronic Assessment and plan: Apparent manifestation with Transient speech deficits and Headache per review of neurology notes (15) DVT prophylaxis: Status: Acute Assessment and plan: Heparin SC until INR is therapeutic. (16) Advance directive on file: Status: Acute Assessment and plan: Full Code. Subjective Subjective Interval history since last seen: 73-year-old man with past medical history significant for long-standing vertigo, as well as RA and Crohn's disease maintained chronically on immunosuppressive therapy, being admitted from [facility] Emergency Department on 03/05 with a diagnosis of weakness and falls. Mr. Padilla has a past medical history significant for RA and Crohn's disease maintained on daily steroids and immune suppressive therapy. He also has a significant cardiac history, with multiple MIs in the past with reported 7 stents, last 2 occurring in 2010 in [place]. His last stress test in 2017 showed a fixed defect. His other history includes DM, HTN, dyslipidemia, hypothyroidism, FRANCIE on CPAP therapy, ED status post penile implant, prior CVA, moderate AI, depression, and MGUS. He also has noted seizure disorder, manifested by headache and transient speech difficulties. He has a herniated disc in his lumbar region that was scheduled for potential intervention last Tuesday, not attended by the patient due to feeling ill. Mr. Padilla presented to the ED with complaints of vertigo type symptoms. 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 Ethel Ya of neurology back in September of this year. He was also noted to have gait imbalance that was deemed multifactorial in the setting of vertigo, orthostatic hypotension, and significant neuropathy. However the patient reported that while his vertigo has been constant, he had suffered a fall on the day prior to his admission. His in fact reports that he has been falling quite a bit at home recently. He has a prior history of DVT, and is anticoagulated chronically with Coumadin. However due to anticipation of the potential surgical procedure last Tuesday the patient's Coumadin had been on hold, and his INR at time of presentation was normal. Evaluation in the ED was noteworthy for mild PRISCILLA with a creatinine of 1.77, normal INR as previously stated, mildly depressed TSH with mildly elevated FT4, and a UA that while high in specific gravity was negative for any signs of infection or pyuria. BNP was also checked and relatively unremarkable at 615 (patient's prior values have been as high as 7000). Chest x-ray showed no acute pulmonary process. ECG was initially reported by the ED as AFib, but upon closer inspection noted to be either a Multifocal Tachycardia or a sinus arrhythmia with potential PACs. Patient was admitted for further evaluation and treatment of his ongoing weakness, with recent frequent falls. Shortly following admission Mr. Padilla was noted to be slightly hypoxic and spiked a fever. Subsequent ABG showed evidence of hypoxia, with a PaO2 of 55. CT of the chest was obtained and showed ground glass opacities, but no obvious infiltrate. The patient himself denied any subjective SOB or pulmonary symptoms, but had an obvious cough at time of exam. He also denied subjective fevers at home. Broad-spectrum antibiotics were initiated, and Mr. Padilla has remained afebrile since. He continues to complain of significant Lower Back Pain, unchanged and chronic, but is feeling much improved today. Hemoglobin remains stable but low. No overnight events reported. Remains afebrile. Exam Narrative Exam Narrative: General: Patient appears comfortable, AAOX3, NAD Neck: Supple CV: Regular, nontachycardic, S1S2, No rubs, murmurs, or gallops. Pulmonary: Small areas of bibasilar crackles, otherwise clear with good air entry and no wheezing. Abdomen: + Bowel Sounds, soft, nontender, nondistended Vascular: Mild lower extremity edema Psych: Normal mood and affect. Objective Objective Clinical Data: Abnormal lab results 03/07/19 03/07/19 03/07/19 Range/Units 07:57 07:57 07:57 RBC 2.32 L (4.50-6.00) m/cumm Hgb 7.2 L (13.5-17.5) g/dL Hct 22.5 L (40.0-50.0) % MCV 97.0 H (80-95) fL RDW 15.1 H (11.8-14.1) % Absolute Lymphocytes 0.62 L (1.2-3.4) k/cumm PT 16.2 H (9.3-11.0) sec INR 1.6 H (0.9-1.1) Chloride 109 H (98-107) mmol/L Carbon Dioxide 20.0 L (21.0-32.0) mmol/L BUN 32 H (7-18) mg/dL Creatinine 1.41 H (0.70-1.30) mg/dL Calcium 8.2 L (8.5-10.1) mg/dL Crossmatch 03/07/19 Range/Units 07:57 RBC (4.50-6.00) m/cumm Hgb (13.5-17.5) g/dL Hct (40.0-50.0) % MCV (80-95) fL RDW (11.8-14.1) % Absolute Lymphocytes (1.2-3.4) k/cumm PT (9.3-11.0) sec INR (0.9-1.1) Chloride (98-107) mmol/L Carbon Dioxide (21.0-32.0) mmol/L BUN (7-18) mg/dL Creatinine (0.70-1.30) mg/dL Calcium (8.5-10.1) mg/dL Crossmatch See Detail Vital Signs Temperature 36 C L 03/07/19 14:34 Temperature Source Tympanic 03/07/19 11:42 Pulse 57 L 03/07/19 14:34 Pulse Rhythm Regular 03/07/19 09:00 Pulse 101 H 03/05/19 15:40 Respiratory Rate 16 03/07/19 14:34 Respiratory Effort 03/07/19 09:00 Respiratory Depth Normal 03/07/19 09:00 Respiratory Pattern Normal 03/07/19 09:00 Blood Pressure 150/77 H 03/07/19 14:34 Blood Pressure Mean 76 03/05/19 15:31 Blood Pressure Position Sitting 03/05/19 10:19 Pulse Oximetry 95 03/07/19 14:34 Oxygen Delivery Method Nasal Cannula 03/07/19 14:34 Oxygen Flow Rate 2 03/07/19 14:34 Fraction of Inspired Oxygen (FIO2) 21 03/07/19 12:27 Pain Level 8 03/07/19 12:40 Comment 03/05/19 10:19 Intake & Output 03/06/19 03/07/19 03/07/19 23:59 11:59 23:59 Intake Total 1977.575 / 3306.683 1750 / 2490 740 / 2490 Output Total 200 / 1100 750 / 950 200 / 950 Balance 1777.575 / 2206.683 1000 / 1540 540 / 1540 Weight 95.9 kg Intake: IV 1737.575 / 2946.683 1210 / 1460 250 / 1460 Oral 240 / 360 540 / 780 240 / 780 Blood Product 250 / 250 Rbc Leuko Reduced Unit 250 / 250 [id number] Output: Urine 200 / 1100 750 / 950 200 / 950 Other: Urine Color Yellow Yellow Yellow Straw Urine Appearance Clear Clear Clear Urine Odor Normal Normal Comment mixed w/stool urine mixed with stool unable to measure urine Stool Occult Blood Negative Stool Size Moderate Stool Characteristics Soft Brown Voiding Methods Toilet Urinal Laboratory Results WBC 5.46 k/cumm (4.4-10.8) 03/07/19 07:57 RBC 2.32 m/cumm (4.50-6.00) L 03/07/19 07:57 Hgb 7.2 g/dL (13.5-17.5) L 03/07/19 07:57 Hct 22.5 % (40.0-50.0) L 03/07/19 07:57 MCV 97.0 fL (80-95) H 03/07/19 07:57 MCH 31.0 pg (27.0-33.0) 03/07/19 07:57 MCHC 32.0 g/dL (32.0-36.0) 03/07/19 07:57 RDW 15.1 % (11.8-14.1) H 03/07/19 07:57 Plt Count 223 x1000/uL (130-400) 03/07/19 07:57 MPV 10.5 fL (8.0-11.0) 03/07/19 07:57 Immature Gran % 0.2 03/07/19 07:57 Neutrophils % 83.3 03/07/19 07:57 Lymphocytes % 11.4 03/07/19 07:57 Monocytes % 5.1 03/07/19 07:57 Eosinophils % 0.0 03/07/19 07:57 Basophils % 0.0 03/07/19 07:57 Absolute Neutrophils 4.55 k/cumm (1.2-6.7) 03/07/19 07:57 Absolute Lymphocytes 0.62 k/cumm (1.2-3.4) L 03/07/19 07:57 Absolute Monocytes 0.28 k/cumm (0.11-0.7) 03/07/19 07:57 Absolute Eosinophils 0.00 k/cumm (0.0-0.7) 03/07/19 07:57 Absolute Basophils 0.00 k/cumm (0.0-0.2) 03/07/19 07:57 Differential Comment Rbc morph reviewed 03/07/19 07:57 RBC Morphology See below 03/07/19 07:57 Polychromasia Present 03/07/19 07:57 Anisocytosis 1+ 03/07/19 07:57 PT 16.2 sec (9.3-11.0) H 03/07/19 07:57 INR 1.6 (0.9-1.1) H 03/07/19 07:57 APTT 89.0 sec (21.0-31.4) H* D 03/06/19 12:55 D-Dimer 1750 ng/mlFEU (<500) H 03/05/19 10:30 Sample Site Right radial 03/05/19 16:55 pCO2 27 mmHg (34-47) L 03/05/19 16:55 pO2 55 mmHg (83-108) L 03/05/19 16:55 O2 Saturation 88 % (94-98) L 03/05/19 16:55 ABG pH 7.48 (7.35-7.45) H 03/05/19 16:55 ABG HCO3 20 mmol/L (22-28) L 03/05/19 16:55 ABG Total CO2 19 mmol/L (22-29) L 03/05/19 16:55 ABG Base Excess -3.5 mmol/L (-3-3) L 03/05/19 16:55 FiO2 R/a % 03/05/19 16:55 Sodium 140 mmol/L (136-145) 03/07/19 07:57 Potassium 3.7 mmol/L (3.5-5.1) D 03/07/19 07:57 Chloride 109 mmol/L (98-107) H 03/07/19 07:57 Carbon Dioxide 20.0 mmol/L (21.0-32.0) L 03/07/19 07:57 Anion Gap 11.0 mmol/L (3-11) 03/07/19 07:57 BUN 32 mg/dL (7-18) H 03/07/19 07:57 Creatinine 1.41 mg/dL (0.70-1.30) H 03/07/19 07:57 Estimated GFR/1.73 m2 49.13 (mL/min/1.73m2) 03/07/19 07:57 Glucose 86 mg/dL (70-100) D 03/07/19 07:57 Lactate 1.2 mmol/L (0.6-1.4) 03/07/19 07:57 Calcium 8.2 mg/dL (8.5-10.1) L 03/07/19 07:57 Magnesium 2.1 mg/dL (1.8-2.4) 03/05/19 10:30 Iron 54 ug/dL (50-175) 03/06/19 06:37 TIBC 147 ug/dL (250-450) L 03/06/19 06:37 Transferrin % Sat 37 % (20-55) 03/06/19 06:37 Ferritin > 1000 ng/mL (8-388) H 03/06/19 06:37 Total Bilirubin 0.7 mg/dL (0.2-1.0) 03/05/19 10:30 AST 33 U/L (15-37) 03/05/19 10:30 ALT 37 U/L (16-63) 03/05/19 10:30 Alkaline Phosphatase 78 U/L (46-116) 03/05/19 10:30 Troponin I < 0.05 ng/mL (0.00-0.06) 03/06/19 06:37 NT-Pro-B Natriuret Pep 615 pg/mL (-299) H 03/05/19 10:30 Total Protein 8.1 g/dL (6.4-8.2) 03/05/19 10:30 Albumin 2.7 g/dL (3.4-5.0) L 03/05/19 10:30 Vitamin B12 1113 pg/mL (193-986) H 03/06/19 06:37 Folate > 20.0 ng/mL (8.6-20.0) H 03/06/19 06:37 TSH 0.35 uIU/mL (0.36-3.74) L 03/05/19 10:30 Free T4 1.50 ng/dL (0.76-1.46) H 03/05/19 10:30 Urine Color Yellow (Yellow) 03/05/19 12:20 Urine Clarity Clear (Clear) 03/05/19 12:20 Urine pH 5.5 (5-8) 03/05/19 12:20 Ur Specific Effie >= 1.030 (1.005-1.025) H 03/05/19 12:20 Urine Protein Trace mg/dL (Negative) H 03/05/19 12:20 Urine Ketones Negative mg/dL (Negative) 03/05/19 12:20 Urine Blood Negative (Negative) 03/05/19 12:20 Urine Nitrite Negative (Negative) 03/05/19 12:20 Urine Bilirubin Small (Negative) H 03/05/19 12:20 Urine Urobilinogen 0.2 EU/dL (Up TO 0.2) 03/05/19 12:20 Ur Leukocyte Esterase Negative (Negative) 03/05/19 12:20 Urine RBC Negative (0-2) 03/05/19 12:20 Urine WBC 0-2 HPF (0-5) 03/05/19 12:20 Ur Epithelial Cells Few HPF (Negative) 03/05/19 12:20 Urine Crystals Negative HPF (Negative) 03/05/19 12:20 Urine Bacteria Negative HPF (Negative) 03/05/19 12:20 Urine Casts 0-2 hyaline LPF (Negative) 03/05/19 12:20 Urine Mucus Negative (Negative) 03/05/19 12:20 Ur Culture Indicated? No 03/05/19 12:20 Urine Glucose 500 mg/dL (Negative) H 03/05/19 12:20 Legionella Source (see note) 03/06/19 00:32 Legionella Reprt Status (see note) 03/06/19 00:32 Legionella Final Result (see note) 03/06/19 00:32 Patient ABO/Rh A Positive 03/07/19 07:57 Antibody Screen Negative 03/07/19 07:57 Crossmatch See Detail 03/07/19 07:57
--- NOTE | 2019-03-07 15:43 | CHAPLAIN ---
Miguel was resting in bed when I visit. He was very pleasant and easily engaged in a conversation. He talked about moving her from [place] many years ago. He was expecting to his to be in to visit later today, and didn't seem to have other concerns.
[2019-03-07] MEDS: amLODIPine 5 MG TAB PO (16:01)
[2019-03-07 18:59] LABS: HCT 25.2 % (40.0-50.0); HGB 8.1 g/dL (13.5-17.5)
[2019-03-07] MEDS: Warfarin 1 MG TAB 2.5 MG PO (20:14)
[2019-03-07] MEDS: Acetaminophen 500 MG TAB PO (20:14)
[2019-03-07] MEDS: ROSUVASTATIN 20 MG TAB 40 MG PO (20:16)
[2019-03-07 23:19] LABS: Mycoplasma Pneumoniae PCR Negative; Specimen source NASAL
[2019-03-08] VITALS (12 sets, daily range): BP systolic 128–169; BP diastolic 56–87; PULSE 59–92; RESP 18–22; TEMP 35.8–36.6; O2SAT 95–98
[2019-03-08] MEDS: PIPERACILLIN/TAZO 4.5 GM in Normal Saline 100 ML IVPB ×4 (01:17→19:56)
[2019-03-08] MEDS: Normal Saline 1,000 ML 150 ML IV (03:15)
[2019-03-08] MEDS: Liothyronine 5 MCG TAB PO (06:56)
[2019-03-08] MEDS: Heparin 5,000 UNITS/ML VIAL 5000 UNITS SC (06:56)
[2019-03-08] MEDS: Levothyroxine 150 MCG TAB PO (06:56)
[2019-03-08 07:09] LABS: Abs Immature Grans 0.02 k/cumm (0.0-0.09); Absolute Lymphocyte Count 0.96 k/cumm (1.2-3.4); Absolute Monocyte Count 0.36 k/cumm (0.11-0.7); Absolute Neutrophil Count 5.36 k/cumm (1.2-6.7); HCT 28.6 % (40.0-50.0); Immature Grans % 0.3; Lymphocytes % 14.3; Mean Corp. HGB Concentration 31.5 g/dL (32.0-36.0); Mean Corpuscular Hemoglobin 30.2 pg (27.0-33.0); Mean Platelet Volume 10.6 fL (8.0-11.0); Monocytes % 5.4; Platelet Count 291 x1000/uL (130-400); RBC 2.98 m/cumm (4.50-6.00); RBC Distribution Width 15.8 % (11.8-14.1)
[2019-03-08 07:16] LABS: Prothrombin Time 29.1 sec (9.3-11.0)
[2019-03-08 07:20] LABS: Anion Gap 9.7 mmol/L (3-11); BUN 22 mg/dL (7-18); CO2 20.3 mmol/L (21.0-32.0); CREATININE 1.26 mg/dL (0.70-1.30); Calcium 8.1 mg/dL (8.5-10.1); Chloride 114 mmol/L (98-107); Estimated GFR 55.94 (mL/min/1.73m2); Glucose 61 mg/dL (70-100); Potassium 3.7 mmol/L (3.5-5.1); Sodium 144 mmol/L (136-145)
--- NOTE | 2019-03-08 08:33 | PDOC.CMPRO ---
- If Service Date Differs Date of service: 03/08/19 Time of Service: 08:33 Care Management Progress Note S/O: Miguel is sitting up in bed when CM meets with him. His is present in the room. Miguel is pleasant and easily engages in conversation. He reports feeling better and states he has been working with PT and walking up and down the hallway a couple of times per day. CM will continue to follow. A: 73 year old male admitted to [facility] on 03/05/19 for vertigo, falls, and hypoxia. P: Anticipate Miguel will require VNA supports upon discharge. CM will continue to follow and support discharge planning considerations.
[2019-03-08] MEDS: Cholecalciferol (Vitamin D3) 1,000 UNIT TAB 2000 UNITS PO (08:44)
[2019-03-08] MEDS: Hydrocortisone SOD SUC. 100 MG VIAL IVP (08:44)
[2019-03-08] MEDS: Tamsulosin 0.4 MG CAPCR PO (08:45)
[2019-03-08] MEDS: Docusate Sodium 100 MG CAP PO (08:45)
[2019-03-08] MEDS: FLUoxetine 10 MG TAB 30 MG PO (08:45)
[2019-03-08] MEDS: Calcium 600mg/Vit D 200U TAB 2 TAB PO (08:46)
[2019-03-08] MEDS: Finasteride 5 MG TAB PO (08:46)
[2019-03-08] MEDS: methylPREDNISolone 4 MG TAB 12 MG PO (08:47)
[2019-03-08] MEDS: buPROPion-XL 150 MG TABCR PO (08:48)
[2019-03-08] MEDS: Folic Acid 1 MG TAB PO (08:48)
[2019-03-08] MEDS: Acetaminophen 500 MG TAB PO ×2 (08:48→19:50)
[2019-03-08] MEDS: Pantoprazole 40 MG TABCR PO (08:48)
[2019-03-08] MEDS: Calcitonin-Salmon, Synthetic 3.7 ML BTL NS (08:54)
[2019-03-08] MEDS: Normal Saline Flush 10 ML SYR IVP ×4 (08:55→19:57)
[2019-03-08] MEDS: POTASSIUM CHLORIDE 20 MEQ, POTASSIUM CHLORIDE 10 MEQ 30 MEQ PO (10:16)
[2019-03-08] MEDS: MAGNESIUM SULFATE 1 GM/100 ML BAG IVPB (10:28)
[2019-03-08] MEDS: AZITHROMYCIN 500 MG in Normal Saline 250 ML 250 MG IVPB (10:51)
[2019-03-08] MEDS: Insulin Aspart 300 UNITS/3 ML PEN SC (12:10)
--- NOTE | 2019-03-08 12:35 | PT.INTREAT ---
Date of service: 03/08/19 Time of Service: 12:35 PT Notes Inpatient Physical Therapy Treatment Note [facility] Date: 03/08/2019 PRECAUTIONS: Fall, Droplet SUBJECTIVE: Miguel states that he is feeling significantly better, he is agreeable to participating in PT, stating that he needs to have a bowel movement. OBJECTIVE: PAIN: Patient c/o L LE pain with gait training BED MOBILITY/TRANSFERS Sit-supine: I with HOB flat Sit-stand: SBA Stand-sit: SBA GAIT Assistive Device: FWW Weight bearing: Full Assist: SBA x2 Distance: 10' + 50' + 60' in a.m.; 100' + 30' Deviation: Decreased adriana and step height, seated rest x1, stand rest x1, increased fatigue, c/o UE/LE pain THEREX: Patient completed a LE strengthening and stabilization program, in a long-sit position, as per flow sheet. . TOILETING: Patient toileted with Max A ASSESSMENT: Patient tolerated session well, with complaint of increased fatigue with gait training. He was able to tolerate a progression in gait distance with FWW support and SBA x2, requiring seated rest x1 and standing rest x1. He would benefit from continued gait and transfer training and general conditioning for improved activity tolerance and mobility. PLAN: Continue with PTs POC TREATMENT CODE/TIME: Session 1: 60 minutes; 65736 x3, 39975 Session 2: 30 minutes; 40510, [id number]
[2019-03-08] MEDS: MORPHine 2 MG/ML SYR IVP (14:12)
--- NOTE | 2019-03-08 15:14 | PGE_ITS ---
Date of Service Date of service: 03/08/19 Time of Service: 15:14 Assessment and Plan Assessment and plan (1) Hypoxia: Status: Acute Assessment and plan: Evidence of hypoxia, fever, and pulmonary abnormalities by imaging with CT in immunosuppressed patient - Official read with diffuse ground-glass opacities, differential included infection, hemorrhage, edema, or interstitial PNA by CT read. Images were pushed to [facility] and reviewed with Pulmonary on 03/06 who agreed that given fever AND immunosuppression, likely to be infectious, and agrees with broad-spectrum coverage. Discussed potential for PCP coverage with ID, but recommended to wait and monitor patient clinically on current antibiotic regimen prior to determination for potential PCP coverage or Bronch with BAL. - Consider infectious etiology - Improving with Pip-Jesus, macrolide for atypical coverage, currently day #3. Per discussion with pulm, imaging not consistent with Staph - Vancomycin d/c'd (MRSA swab negative as well). - No evidence of fungal infection. Would also consider viral infection. Rapid Flu negative. Consider viral panel pending patient's clinical status. - Also with hx DVT, off AC and with normal INR. Was initiated on heparin gtt but doubt PE, and Pulm agreed with this assessment. Currently with therapeutic INR, with coumadin reinitiated. - Also on Humira, Sulfasalazine, and Leflunomide, with potential for infections as well as pulmonary processes such as ILD and Pulm toxicity - although patient was febrile. Will need pulm follow-up after hospitalization. Status appears improved. Continue to monitor. (2) Fever: Status: Acute Assessment and plan: As above. Blood cultures negative. Urinalysis negative for infection. (3) Weakness: Status: Acute (4) PRISCILLA (acute kidney injury): Status: Acute Assessment and plan: In setting of illness and poor PO intake, likely pre- renal in etiology. Continue hydration, monitor renal function, renally dose medications, and avoid nephrotoxins. - ECHO reviewed from 2018 - Normal LV and RV function. Maintained on IVFs. - Creatinine stable and improved. (5) Hypertension: Status: Chronic Assessment and plan: Hold Spironolactone, ARB in setting of PRISCILLA, and reinitiate when able. Monitor bp - CCB reinitiated. (6) Hyperlipidemia: Status: Acute Assessment and plan: On statin therapy. (7) Diabetes mellitus, type II, insulin dependent: Status: Acute Assessment and plan: Some mild hypoglycemia this morning. Continue but decrease basal insulin, maintain on sliding scale, and continue ADA diet. (8) Obstructive sleep apnea: Status: Chronic Assessment and plan: Noted. Continue CPAP. (9) Coronary artery disease: Status: Chronic Assessment and plan: Underlying CAD in the setting of chronic inflammatory processes with RA and Crohn's Disease. Reportedly with 5 prior FL's, s/p multiple stents (Documented 7 by review of cardiology notes). Appears asymptomatic currently. - Continue statin, prn NTG. Does not appear to be on daily ASA or BB. - Initially with tachycardia, with either sinus arrhythmia with PACs or multi- focal Atach in setting of hypoxia and pulmonary process. Initiated short acting Cardizem, discontinued in the setting of bradycardia. - Given Hgb <8 with concurrent CAD transfused X1 unit PRBCs on 03/07. (10) Crohns disease: Status: Chronic Assessment and plan: On Humira, Mesalamine. Patient also has a history of RA, maintained on Leflunomide as well. Currently all on hold. (11) Anemia: Status: Chronic Assessment and plan: Iron studies with Anemia of Chronic disease. Stool occult blood negative. Also with abnormal thyroid function as potential etiology for worsening values. - Given underlying CAD goal for Hgb >8. S/p single unit transfusion on 03/07. (12) DVT (deep venous thrombosis): Status: Chronic Assessment and plan: Hx DVT on anticoagulation, placed on hold for procedure last week that did not occur. Resumed Coumadin, with daily INR. (13) Hypothyroidism: Status: Chronic Assessment and plan: Appears to be over-replaced, with slightly depressed TSH and mild elevation in FT4. Continue Levothyroxine but decrease dose. Also on Cytomel. (14) Seizure disorder: Status: Chronic Assessment and plan: Apparent manifestation with Transient speech deficits and Headache per review of neurology notes (15) DVT prophylaxis: Status: Acute Assessment and plan: Monitor daily INR - Coumadin on hold due to INR of 3 today. (16) Advance directive on file: Status: Acute Assessment and plan: Full Code. Subjective Subjective Interval history since last seen: 73-year-old man with past medical history significant for long-standing vertigo, as well as RA and Crohn's disease maintained chronically on immunosuppressive therapy, being admitted from [facility] Emergency Department on 03/05 with a diagnosis of weakness and falls. Mr. Padilla has a past medical history significant for RA and Crohn's disease maintained on daily steroids and immune suppressive therapy. He also has a significant cardiac history, with multiple MIs in the past with reported 7 stents, last 2 occurring in 2010 in [place]. His last stress test in 2017 showed a fixed defect. His other history includes DM, HTN, dyslipidemia, hypothyroidism, FRANCIE on CPAP therapy, ED status post penile implant, prior CVA, moderate AI, depression, and MGUS. He also has noted seizure disorder, man ifested by headache and transient speech difficulties. He has a herniated disc in his lumbar region that was scheduled for potential intervention last Tuesday, not attended by the patient due to feeling ill. Mr. Padilla presented to the ED with complaints of vertigo type symptoms. 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 Ethel Ya of neurology back in September of this year. He was also noted to have gait imbalance that was deemed multifactorial in the setting of vertigo, orthostatic hypotension, and significant neuropathy. However the patient reported that while his vertigo has been constant, he had suffered a fall on the day prior to his admission. His in fact reports that he has been falling quite a bit at home recently. He has a prior history of DVT, and is anticoagulated chronically with Coumadin. However due to anticipation of the potential surgical procedure last Tuesday the patient's Coumadin had been on hold, and his INR at time of presentation was normal. Evaluation in the ED was noteworthy for mild PRISCILLA with a creatinine of 1.77, normal INR as previously stated, mildly depressed TSH with mildly elevated FT4, and a UA that while high in specific gravity was negative for any signs of infection or pyuria. BNP was also checked and relatively unremarkable at 615 (patient's prior values have been as high as 7000). Chest x-ray showed no acute pulmonary process. ECG was initially reported by the ED as AFib, but upon closer inspection noted to be either a Multifocal Tachycardia or a sinus arrhythmia with potential PACs. Patient was admitted for further evaluation and treatment of his ongoing weakness, with recent frequent falls. Shortly following admission Mr. Padilla was noted to be slightly hypoxic and spiked a fever. Subsequent ABG showed evidence of hypoxia, with a PaO2 of 55. CT of the chest was obtained and showed ground glass opacities. The patient himself denied any subjective SOB or pulmonary symptoms, but had an obvious cough at time of exam. He also denied subjective fevers at home. Broad-spectrum antibiotics were initiated, and Mr. Padilla has remained afebrile since, and has reported improvement daily since. He continues to complain of Lower Back Pain, unchanged and chronic. Hemoglobin remains stable but low. No overnight events reported. Remains afebrile. Exam Narrative Exam Narrative: General: Patient appears comfortable, AAOX3, NAD Neck: Supple CV: Regular, nontachycardic, S1S2, No rubs, murmurs, or gallops. Pulmonary: Small areas of bibasilar crackles improved, otherwise clear with good air entry and no wheezing. Abdomen: + Bowel Sounds, soft, nontender, nondistended Vascular: Mild lower extremity edema Psych: Normal mood and affect. Objective Objective Clinical Data: Abnormal lab results 03/07/19 03/07/19 03/08/19 Range/Units 07:57 18:47 06:45 RBC (4.50-6.00) m/cumm Hgb 8.1 L (13.5-17.5) g/dL Hct 25.2 L (40.0-50.0) % MCV (80-95) fL MCHC (32.0-36.0) g/dL RDW (11.8-14.1) % Absolute Lymphocytes (1.2-3.4) k/cumm PT 29.1 H D (9.3-11.0) sec INR 3.0 H D (0.9-1.1) Chloride (98-107) mmol/L Carbon Dioxide (21.0-32.0) mmol/L BUN (7-18) mg/dL Glucose (70-100) mg/dL Calcium (8.5-10.1) mg/dL Crossmatch See Detail 03/08/19 03/08/19 Range/Units 06:45 06:45 RBC 2.98 L (4.50-6.00) m/cumm Hgb 9.0 L (13.5-17.5) g/dL Hct 28.6 L (40.0-50.0) % MCV 96.0 H (80-95) fL MCHC 31.5 L (32.0-36.0) g/dL RDW 15.8 H (11.8-14.1) % Absolute Lymphocytes 0.96 L (1.2-3.4) k/cumm PT (9.3-11.0) sec INR (0.9-1.1) Chloride 114 H (98-107) mmol/L Carbon Dioxide 20.3 L (21.0-32.0) mmol/L BUN 22 H D (7-18) mg/dL Glucose 61 L (70-100) mg/dL Calcium 8.1 L (8.5-10.1) mg/dL Crossmatch Vital Signs Temperature 36.0 C L 03/08/19 11:37 Temperature Source Tympanic 03/08/19 11:37 Pulse 72 03/08/19 11:37 Pulse Rhythm Regular 03/08/19 11:09 Pulse 101 H 03/05/19 15:40 Respiratory Rate 18 03/08/19 11:37 Respiratory Effort 03/08/19 11:09 Respiratory Depth Normal 03/08/19 11:09 Respiratory Pattern Normal 03/08/19 11:09 Blood Pressure 128/72 03/08/19 11:37 Blood Pressure Mean 76 03/05/19 15:31 Blood Pressure Position Sitting 03/05/19 10:19 Pulse Oximetry 96 03/08/19 11:37 Oxygen Delivery Method Room Air 03/08/19 11:37 Oxygen Flow Rate 0 03/08/19 11:37 Fraction of Inspired Oxygen (FIO2) 21 03/08/19 09:32 Pain Level 7 03/08/19 14:12 Comment 03/05/19 10:19 Intake & Output 03/07/19 03/08/19 03/08/19 23:59 11:59 23:59 Intake Total 2652.5 / 4402.5 2290 / 2660 370 / 2660 Output Total 1000 / 1750 350 / 350 Balance 1652.5 / 2652.5 1940 / 2310 370 / 2310 Weight 98.6 kg Intake: IV 1602.5 / 2812.5 2200 / 2450 250 / 2450 Oral 480 / 1020 90 / 210 120 / 210 Blood Product 500 / 500 Rbc Leuko Reduced Unit 500 / 500 [id number] Other 70 / 70 Rbc Leuko Reduced Unit 70 / 70 [id number] Output: Urine 1000 / 1750 350 / 350 Other: Urine Color Yellow Yellow Urine Appearance Clear Urine Odor Normal Stool Occult Blood Negative Negative Stool Size Moderate Moderate Stool Characteristics Liquid Soft Brown Voiding Methods Toilet Toilet Laboratory Results WBC 6.70 k/cumm (4.4-10.8) 03/08/19 06:45 RBC 2.98 m/cumm (4.50-6.00) L 03/08/19 06:45 Hgb 9.0 g/dL (13.5-17.5) L 03/08/19 06:45 Hct 28.6 % (40.0-50.0) L 03/08/19 06:45 MCV 96.0 fL (80-95) H 03/08/19 06:45 MCH 30.2 pg (27.0-33.0) 03/08/19 06:45 MCHC 31.5 g/dL (32.0-36.0) L 03/08/19 06:45 RDW 15.8 % (11.8-14.1) H 03/08/19 06:45 Plt Count 291 x1000/uL (130-400) 03/08/19 06:45 MPV 10.6 fL (8.0-11.0) 03/08/19 06:45 Immature Gran % 0.3 03/08/19 06:45 Neutrophils % 80.0 03/08/19 06:45 Lymphocytes % 14.3 03/08/19 06:45 Monocytes % 5.4 03/08/19 06:45 Eosinophils % 0.0 03/08/19 06:45 Basophils % 0.0 03/08/19 06:45 Absolute Neutrophils 5.36 k/cumm (1.2-6.7) 03/08/19 06:45 Absolute Lymphocytes 0.96 k/cumm (1.2-3.4) L 03/08/19 06:45 Absolute Monocytes 0.36 k/cumm (0.11-0.7) 03/08/19 06:45 Absolute Eosinophils 0.00 k/cumm (0.0-0.7) 03/08/19 06:45 Absolute Basophils 0.00 k/cumm (0.0-0.2) 03/08/19 06:45 Differential Comment Rbc morph reviewed 03/07/19 07:57 RBC Morphology See below 03/07/19 07:57 Polychromasia Present 03/07/19 07:57 Anisocytosis 1+ 03/07/19 07:57 PT 29.1 sec (9.3-11.0) H D 03/08/19 06:45 INR 3.0 (0.9-1.1) H D 03/08/19 06:45 APTT 89.0 sec (21.0-31.4) H* D 03/06/19 12:55 D-Dimer 1750 ng/mlFEU (<500) H 03/05/19 10:30 Sample Site Right radial 03/05/19 16:55 pCO2 27 mmHg (34-47) L 03/05/19 16:55 pO2 55 mmHg (83-108) L 03/05/19 16:55 O2 Saturation 88 % (94-98) L 03/05/19 16:55 ABG pH 7.48 (7.35-7.45) H 03/05/19 16:55 ABG HCO3 20 mmol/L (22-28) L 03/05/19 16:55 ABG Total CO2 19 mmol/L (22-29) L 03/05/19 16:55 ABG Base Excess -3.5 mmol/L (-3-3) L 03/05/19 16:55 FiO2 R/a % 03/05/19 16:55 Sodium 144 mmol/L (136-145) 03/08/19 06:45 Potassium 3.7 mmol/L (3.5-5.1) 03/08/19 06:45 Chloride 114 mmol/L (98-107) H 03/08/19 06:45 Carbon Dioxide 20.3 mmol/L (21.0-32.0) L 03/08/19 06:45 Anion Gap 9.7 mmol/L (3-11) 03/08/19 06:45 BUN 22 mg/dL (7-18) H D 03/08/19 06:45 Creatinine 1.26 mg/dL (0.70-1.30) 03/08/19 06:45 Estimated GFR/1.73 m2 55.94 (mL/min/1.73m2) 03/08/19 06:45 Glucose 61 mg/dL (70-100) L 03/08/19 06:45 Lactate 1.2 mmol/L (0.6-1.4) 03/07/19 07:57 Calcium 8.1 mg/dL (8.5-10.1) L 03/08/19 06:45 Magnesium 2.1 mg/dL (1.8-2.4) 03/05/19 10:30 Iron 54 ug/dL (50-175) 03/06/19 06:37 TIBC 147 ug/dL (250-450) L 03/06/19 06:37 Transferrin % Sat 37 % (20-55) 03/06/19 06:37 Ferritin > 1000 ng/mL (8-388) H 03/06/19 06:37 Total Bilirubin 0.7 mg/dL (0.2-1.0) 03/05/19 10:30 AST 33 U/L (15-37) 03/05/19 10:30 ALT 37 U/L (16-63) 03/05/19 10:30 Alkaline Phosphatase 78 U/L (46-116) 03/05/19 10:30 Troponin I < 0.05 ng/mL (0.00-0.06) 03/06/19 06:37 NT-Pro-B Natriuret Pep 615 pg/mL (-299) H 03/05/19 10:30 Total Protein 8.1 g/dL (6.4-8.2) 03/05/19 10:30 Albumin 2.7 g/dL (3.4-5.0) L 03/05/19 10:30 Vitamin B12 1113 pg/mL (193-986) H 03/06/19 06:37 Folate > 20.0 ng/mL (8.6-20.0) H 03/06/19 06:37 TSH 0.35 uIU/mL (0.36-3.74) L 03/05/19 10:30 Free T4 1.50 ng/dL (0.76-1.46) H 03/05/19 10:30 Urine Color Yellow (Yellow) 03/05/19 12:20 Urine Clarity Clear (Clear) 03/05/19 12:20 Urine pH 5.5 (5-8) 03/05/19 12:20 Ur Specific [place] >= 1.030 (1.005-1.025) H 03/05/19 12:20 Urine Protein Trace mg/dL (Negative) H 03/05/19 12:20 Urine Ketones Negative mg/dL (Negative) 03/05/19 12:20 Urine Blood Negative (Negative) 03/05/19 12:20 Urine Nitrite Negative (Negative) 03/05/19 12:20 Urine Bilirubin Small (Negative) H 03/05/19 12:20 Urine Urobilinogen 0.2 EU/dL (Up TO 0.2) 03/05/19 12:20 Ur Leukocyte Esterase Negative (Negative) 03/05/19 12:20 Urine RBC Negative (0-2) 03/05/19 12:20 Urine WBC 0-2 HPF (0-5) 03/05/19 12:20 Ur Epithelial Cells Few HPF (Negative) 03/05/19 12:20 Urine Crystals Negative HPF (Negative) 03/05/19 12:20 Urine Bacteria Negative HPF (Negative) 03/05/19 12:20 Urine Casts 0-2 hyaline LPF (Negative) 03/05/19 12:20 Urine Mucus Negative (Negative) 03/05/19 12:20 Ur Culture Indicated? No 03/05/19 12:20 Urine Glucose 500 mg/dL (Negative) H 03/05/19 12:20 Legionella Source (see note) 03/06/19 00:32 Legionella Reprt Status (see note) 03/06/19 00:32 Legionella Final Result (see note) 03/06/19 00:32 M. pneumoniae Source Nasal 03/06/19 02:00 M. pneumoniae (PCR) Negative 03/06/19 02:00 Ur Strep pneumoniae Ag Negative (Negative) 03/06/19 00:32 Patient ABO/Rh A Positive 03/07/19 07:57 Antibody Screen Negative 03/07/19 07:57 Crossmatch See Detail 03/07/19 07:57
--- NOTE | 2019-03-08 15:40 | W.INDIABCONS ---
Date of service: 03/08/19 Time of Service: 15:40 Diabetes Inpatient Consult DESCRIPTION/ASSESSMENT: Appreciate diabetes consult for Mr. Padilla who is hospitalized with vertigo and Crohns disease which he states has not given him any problems during this hospitalization and he is well versed in how to eat to prevent problems. Blood sugars this hospitalization 68-284 taking his usual 30 and 35u detemir and here with moderate insulin correction. He is eating 17-58 grams carbohydrate at a meal. Fasting blood sugars below 100 past 2 days with hypoglycemia this AM. He is taking 20u Prednisone which is currently on a taper. Visited with Mr. Padilla who feels he has many pressing medical conditions and is unconcerned about his diabetes at this time. He has many doctors telling him what to do. He feels he knows what to eat and how to manage blood sugars. States it is difficult at times because his is not always available to make meals. INTERVENTION: Patient is satisfied with his current knowledge of diabetes self management and is grateful to have a contact if he should have a question about diabetes. He may benefit from a decrease in basal insulin by 10% (6 units) as he continues to be at risk for hypoglycemia. PLAN: A1c would be helpful unless current value is available elsewhere Will follow blood sugars and attempt to visit prior to discharge. Time Spent in Nutritional Counseling and Treatment: 10 minutes face to face
[2019-03-08] MEDS: amLODIPine 5 MG TAB PO (16:01)
[2019-03-08] MEDS: ROSUVASTATIN 20 MG TAB 40 MG PO (19:51)
[2019-03-08] MEDS: Melatonin 3 MG TAB 9 MG PO (19:52)
[2019-03-09] VITALS (9 sets, daily range): BP systolic 144–160; BP diastolic 71–82; PULSE 58–117; RESP 18–20; TEMP 36.6–37; O2SAT 95–97
[2019-03-09] MEDS: PIPERACILLIN/TAZO 4.5 GM in Normal Saline 100 ML IVPB ×4 (01:40→20:01)
[2019-03-09] MEDS: Liothyronine 5 MCG TAB PO (06:56)
[2019-03-09] MEDS: Pantoprazole 40 MG TABCR PO (06:56)
[2019-03-09] MEDS: Levothyroxine 150 MCG TAB PO (06:56)
[2019-03-09 07:09] LABS: Abs Immature Grans 0.06 k/cumm (0.0-0.09); Absolute Basophil Count 0.01 k/cumm (0.0-0.2); Absolute Eosinophil Count 0.03 k/cumm (0.0-0.7); Absolute Lymphocyte Count 2.17 k/cumm (1.2-3.4); Absolute Monocyte Count 0.46 k/cumm (0.11-0.7); Basophils % 0.1; Eosinophils % 0.3; HCT 28.3 % (40.0-50.0); HGB 9.1 g/dL (13.5-17.5); Immature Grans % 0.7; Mean Corp. HGB Concentration 32.2 g/dL (32.0-36.0); Mean Corpuscular Hemoglobin 30.5 pg (27.0-33.0); Mean Platelet Volume 10.1 fL (8.0-11.0); Monocytes % 5.1; Neutrophils % 69.8; Platelet Count 361 x1000/uL (130-400); RBC 2.98 m/cumm (4.50-6.00); RBC Distribution Width 15.9 % (11.8-14.1); White Blood Cell Count 9.06 k/cumm (4.4-10.8)
[2019-03-09 07:12] LABS: Absolute Neutrophil Count 6.32 k/cumm (1.2-6.7)
[2019-03-09 07:20] LABS: Prothrombin Time 39.4 sec (9.3-11.0)
[2019-03-09 07:23] LABS: Anion Gap 9.5 mmol/L (3-11); BUN 17 mg/dL (7-18); CO2 21.5 mmol/L (21.0-32.0); CREATININE 1.19 mg/dL (0.70-1.30); Calcium 8.2 mg/dL (8.5-10.1); Chloride 112 mmol/L (98-107); Estimated GFR 59.76 (mL/min/1.73m2); Glucose 43 mg/dL (70-100); Sodium 143 mmol/L (136-145)
[2019-03-09 07:25] LABS: Potassium 2.7 mmol/L (3.5-5.1)
[2019-03-09 07:32] LABS: INR 4.1 (0.9-1.1)
[2019-03-09] MEDS: Dextrose 50%-Water 25 GM/50 ML SYR IVP (07:43)
[2019-03-09] MEDS: Calcitonin-Salmon, Synthetic 3.7 ML BTL NS (08:17)
[2019-03-09] MEDS: Tamsulosin 0.4 MG CAPCR PO (08:18)
[2019-03-09] MEDS: FLUoxetine 10 MG TAB 30 MG PO (08:18)
[2019-03-09] MEDS: Cholecalciferol (Vitamin D3) 1,000 UNIT TAB 2000 UNITS PO (08:18)
[2019-03-09] MEDS: methylPREDNISolone 4 MG TAB 12 MG PO (08:18)
[2019-03-09] MEDS: Hydrocortisone SOD SUC. 100 MG VIAL IVP (08:18)
[2019-03-09] MEDS: buPROPion-XL 150 MG TABCR PO (08:18)
[2019-03-09] MEDS: Calcium 600mg/Vit D 200U TAB 2 TAB PO (08:19)
[2019-03-09] MEDS: Folic Acid 1 MG TAB PO (08:19)
[2019-03-09] MEDS: Finasteride 5 MG TAB PO (08:19)
[2019-03-09] MEDS: Acetaminophen 500 MG TAB PO ×2 (08:19→20:02)
--- NOTE | 2019-03-09 08:59 | CMPROGNOTE_ITS ---
- If Service Date Differs Date of service: 03/09/19 Time of Service: 08:59 Care Management Progress Note S/O: Miguel is sitting in a chair watching television when CM meets with him. He is pleasant and easily engages in conversation. His blood sugars have been low in the morning, so provider will be adjusting insulin dosages to try and regulate blood sugars. Miguel reports he is feeling pretty good but states he had a setback last evening. He shares he had a lot of pain last night but believes it is because he over did it with walking yesterday. CM will continue to follow. A: Miguel is a 73 year old male admitted to [facility] on 03/05/2019 for vertigo and falls. P: Miguel will be discharged home when medically cleared by provider. Anticipate he will require VNA supports upon discharge. CM will continue to follow and support discharge planning considerations.
[2019-03-09] MEDS: AZITHROMYCIN 500 MG in Normal Saline 250 ML 250 MG IVPB (09:22)
[2019-03-09] MEDS: Potassium Chloride 20 MEQ TABCR 40 MEQ PO ×2 (10:03→15:47)
--- NOTE | 2019-03-09 10:49 | PT.INTREAT ---
Date of service: 03/09/19 Time of Service: 10:49 PT Notes Inpatient Physical Therapy Treatment Note [facility] Date: 03/09/2019 PRECAUTIONS: Fall SUBJECTIVE: Miguel states that he is feeling significantly better, he is agreeable to participating in PT, stating that he needs to have a bowel movement. OBJECTIVE: PAIN: Patient c/o back and L LE discomfort with gait training BED MOBILITY/TRANSFERS Supine-sit: I Sit-stand: S Stand-sit: S GAIT Assistive Device: FWW Weight bearing: Full Assist: SBA x2 Distance: 120' in a.m.; 130' + 20' in p.m. Deviation: Decreased adriana and step height, stand rest x3, increased fatigue, c/o back and LE pain, seated rest x1 in p.m. THEREX: Patient completed a LE strengthening and stabilization program, in a seated position, as per flow sheet. ASSESSMENT: Patient tolerated session well, with complaint of increased fatigue and back and LE discomfort with gait training. He was able to tolerate a progression in gait distance with FWW support and SBA x2, requiring standing rest x3. He would benefit from continued gait and transfer training and general conditioning for improved activity tolerance and mobility. PLAN: Continue with PTs POC TREATMENT CODE/TIME: Session 1: 25 minutes; [id number], [id number] Session 2: 20 minutes; [id number]
--- NOTE | 2019-03-09 13:27 | W.DIABETESNO ---
Date of service: 03/09/19 Time of Service: 13:28 Diabetes Note NOTE: Follow up visit with Mr. Padilla who has been experiencing hypoglycemia over the past 2 mornings of 68 and 43mg/dl. He states he does not experience typical symptoms but this morning he knew he needed to eat. Described physiologic insulin and his insulin regimen. Discussed possible reasons for hypoglycemia and he agrees he is eating better here. He is also getting mealtime insulin correction. Reviewed treatment of hypoglycemia and he voices understanding. He will track how many times he needs a squirt of honey as well as frequency of taking glucose tablets to assess how often he feels hypoglycemic. Will follow up on Tuesday if he is still here. Time Spent in Nutritional Counseling and Treatment: 8 minutes face to face.
[2019-03-09] MEDS: Normal Saline Flush 10 ML SYR IVP ×2 (14:39→20:03)
--- NOTE | 2019-03-09 15:44 | PGE_ITS ---
Date of Service Date of service: 03/09/19 Time of Service: 15:44 Assessment and Plan Assessment and plan (1) Hypoxia: Status: Acute Assessment and plan: Evidence of hypoxia, fever, and pulmonary abnormalities by imaging with CT in immunosuppressed patient - Official read with diffuse ground-glass opacities, differential including infection, hemorrhage, edema, or interstitial PNA by CT read. Images were pushed to [facility] and reviewed with Pulmonary on 03/06 who agreed that given fever AND immunosuppression, likely to be infectious, and agrees with broad-spectrum coverage. Discussed potential for PCP coverage with ID, but recommended to wait and monitor patient clinically on current antibiotic regimen prior to determination for potential PCP coverage or Bronch with BAL. - Consider bacterial infection - Improving with Pip-Jesus, macrolide for atypical coverage, currently day #4. Per discussion with pulm, imaging not consistent with Staph - Vancomycin d/c'd (MRSA swab negative as well). - No evidence of fungal infection. Would also consider viral infection. Rapid Flu negative. Consider viral panel pending patient's clinical status. - Also with hx DVT, off AC and with normal INR at presentation. Was initiated on heparin gtt but doubt PE, and Pulm agreed with this assessment. Currently with therapeutic INR (high today), with coumadin reinitiated. - Also on Humira, Sulfasalazine, and Leflunomide, with potential for infections as well as pulmonary processes such as ILD and Pulm toxicity - although patient was febrile. Will need pulm follow-up after hospitalization. - Role not clear for procalcitonin given immunocompromised state. Status appears improved. Continue to monitor. (2) Fever: Status: Acute Assessment and plan: As above. Blood cultures negative. Urinalysis negative for infection. Afebrile since initiation of antibiotic therapy. (3) Diarrhea: Status: Acute Assessment and plan: Likely side-effect of antibiotic therapy, but will check for Fecal WBCs and C.Diff. (4) Weakness: Status: Acute Assessment and plan: Improving. Likely secondary to infection. Continue PT. (5) PRISCILLA (acute kidney injury): Status: Acute Assessment and plan: In setting of illness and poor PO intake, likely pre- renal in etiology. Renal function improved with hydration. - ECHO reviewed from 2018 - Normal LV and RV function. Maintained on IVFs. - Creatinine stable and improved. (6) Hypertension: Status: Chronic Assessment and plan: Blood pressure climbing. Restart Spironolactone, continue to hold ARB (in setting of recent PRISCILLA, and reinitiate when able), and continue CCB. Monitor BP. (7) Hyperlipidemia: Status: Acute Assessment and plan: On statin therapy. (8) Diabetes mellitus, type II, insulin dependent: Status: Acute Assessment and plan: Repeat hypoglycemia this morning despite adjustment in basal insulin yesterday. Will discontinue am lantus, and continue but decrease QHS basal insulin again. Continue to maintain on sliding scale, and continue ADA diet. - Considered possibility for adrenal insufficiency in patient on chronic steroid therapy as cause for hypoglycemia - however, no evidence of hyponatremia, patient's potassium is actually low, and corrected calcium is normal. Patient's anemia is chronic appearing, he does not have eosinophilia, and no evidence of azotemia. He was also stressed dosed with hydrocortisone upon admission. Further discussion appears that Mr. Padilla has some significant dietary indiscretion when at home, and has been maintained on an ADA diet here. Current blood sugars appear improved following alteration in basal insulin dosing. (9) Obstructive sleep apnea: Status: Chronic Assessment and plan: Noted. Continue CPAP. (10) Coronary artery disease: Status: Chronic Assessment and plan: Underlying CAD in the setting of chronic inflammatory processes with RA and Crohn's Disease. Reportedly with 5 prior NY's, s/p multiple stents (Documented 7 by review of cardiology notes). Appears asymptomatic currently. - Continue statin, prn NTG. Does not appear to be on daily ASA or BB. - Initially with tachycardia, with either sinus arrhythmia with PACs or multi- focal Atach in setting of hypoxia and pulmonary process. Initiated short acting Cardizem, discontinued in the setting of bradycardia. - Given Hgb <8 with concurrent CAD transfused X1 unit PRBCs on 03/07. (11) Crohns disease: Status: Chronic Assessment and plan: On Humira, Mesalamine. Patient also has a history of RA, maintained on Leflunomide as well. Currently all on hold. (12) Anemia: Status: Chronic Assessment and plan: Iron studies with Anemia of Chronic disease. Stool occult blood negative. Also with abnormal thyroid function as potential etiology for worsening values. - Given underlying CAD goal for Hgb >8, patient was transfused with a single unit of PRBCs on 03/07. Hgb stable and improving. (13) DVT (deep venous thrombosis): Status: Chronic Assessment and plan: Hx DVT on anticoagulation, placed on hold for procedure last week that did not occur. Resumed Coumadin, with daily INR. (14) Hypothyroidism: Status: Chronic Assessment and plan: Appears to be over-replaced, with slightly depressed TSH and mild elevation in FT4. Continue Levothyroxine but decrease dose. Also on Cytomel. (15) Seizure disorder: Status: Chronic Assessment and plan: Apparent manifestation with Transient speech deficits and Headache per review of neurology notes (16) DVT prophylaxis: Status: Acute Assessment and plan: Monitor daily INR - Coumadin on hold due to supratherpeutic levels. (17) Advance directive on file: Status: Acute Assessment and plan: Full Code. Subjective Subjective Interval history since last seen: 73-year-old man with past medical history significant for long-standing vertigo, as well as RA and Crohn's disease maintained chronically on immunosuppressive therapy, being admitted from [facility] Emergency Department on 03/05 with a diagnosis of weakness and falls. Mr. Padilla has a past medical history significant for RA and Crohn's disease maintained on daily steroids and immune suppressive therapy. He also has a significant cardiac history, with multiple MIs in the past with reported 7 stents, last 2 occurring in 2010 in [place]. His last stress test in 2017 showed a fixed defect. His other history includes DM, HTN, dyslipidemia, hypothyroidism, FRANCIE on CPAP therapy, ED status post penile implant, prior CVA, moderate AI, depression, and MGUS. He also has noted seizure disorder, manifested by headache and transient speech difficulties. He has a herniated disc in his lumbar region that was scheduled for potential intervention last Tuesday, not attended by the patient due to feeling ill. Mr. Padilla presented to the ED with complaints of vertigo type symptoms. 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 Ethel Ya of neurology back in September of this year. He was also noted to have gait imbalance that was deemed multifactorial in the setting of vertigo, orthostatic hypotension, and significant neuropathy. However the patient reported that while his vertigo has been constant, he had suffered a fall on the day prior to his admission. His in fact reports that he has been falling quite a bit at home recently. He has a prior history of DVT, and is anticoagulated chronically with Coumadin. However due to anticipation of the potential surgical procedure last Tuesday the patient's Coumadin had been on hold, and his INR at time of pr esentation was normal. Evaluation in the ED was noteworthy for mild PRISCILLA with a creatinine of 1.77, normal INR as previously stated, mildly depressed TSH with mildly elevated FT4, and a UA that while high in specific gravity was negative for any signs of infection or pyuria. BNP was also checked and relatively unremarkable at 615 (patient's prior values have been as high as 7000). Chest x-ray showed no acute pulmonary process. ECG was initially reported by the ED as AFib, but upon closer inspection noted to be either a Multifocal Tachycardia or a sinus arrhythmia with potential PACs. Patient was admitted for further evaluation and treatment of his ongoing weakness, with recent frequent falls. Shortly following admission Mr. Padilla was noted to be slightly hypoxic and spiked a fever. Subsequent ABG showed evidence of hypoxia, with a PaO2 of 55. CT of the chest was obtained and showed ground glass opacities. The patient himself denied any subjective SOB or pulmonary symptoms, but had an obvious cough at time of exam. He also denied subjective fevers at home. Broad-spectrum antibiotics were initiated, and Mr. Padilla has remained afebrile since, and has reported improvement daily since. He continues to complain of Lower Back Pain, unchanged and chronic. Hemoglobin remains stable but low. He has been hypoglycemic the last 2 mornings despite decrease in lantus dose. Also reporting loose stools. No overnight events reported. Remains afebrile. Exam Narrative Exam Narrative: General: Patient appears comfortable, AAOX3, NAD Neck: Supple CV: Regular, nontachycardic, S1S2, No rubs, murmurs, or gallops. Pulmonary: Small areas of bibasilar crackles improved, otherwise clear with good air entry and no wheezing. Abdomen: + Bowel Sounds, soft, nontender, nondistended Vascular: Mild lower extremity edema Psych: Normal mood and affect. Objective Objective Clinical Data: Abnormal lab results 03/09/19 03/09/19 03/09/19 Range/Units 06:50 06:50 06:50 RBC 2.98 L (4.50-6.00) m/cumm Hgb 9.1 L (13.5-17.5) g/dL Hct 28.3 L (40.0-50.0) % RDW 15.9 H (11.8-14.1) % PT 39.4 H D (9.3-11.0) sec INR 4.1 H D (0.9-1.1) Potassium 2.7 L* D (3.5-5.1) mmol/L Chloride 112 H (98-107) mmol/L Glucose 43 L (70-100) mg/dL Calcium 8.2 L (8.5-10.1) mg/dL Vital Signs Temperature 36.6 C 03/09/19 12:18 Temperature Source Tympanic 03/09/19 12:18 Pulse 65 03/09/19 12:18 Pulse Rhythm Irregular 03/09/19 07:00 Pulse 101 H 03/05/19 15:40 Respiratory Rate 20 03/09/19 12:18 Respiratory Effort Non-Labored 03/09/19 07:00 Respiratory Depth Normal 03/09/19 07:00 Respiratory Pattern Normal 03/09/19 07:00 Blood Pressure 160/74 H 03/09/19 12:18 Blood Pressure Mean 76 03/05/19 15:31 Blood Pressure Position Sitting 03/05/19 10:19 Pulse Oximetry 95 03/09/19 12:18 Oxygen Delivery Method Room Air 03/09/19 12:18 Oxygen Flow Rate 0 03/09/19 12:18 Fraction of Inspired Oxygen (FIO2) 21 03/08/19 09:32 Pain Level 9 03/09/19 12:18 Comment 03/09/19 07:35 Intake & Output 03/08/19 03/09/19 03/09/19 23:59 11:59 23:59 Intake Total 910 / 3200 1140 / 1380 240 / 1380 Output Total 400 / 750 700 / 700 Balance 510 / 2450 440 / 680 240 / 680 Weight 99.2 kg Intake: IV 550 / 2750 450 / 470 20 / 470 Oral 360 / 450 690 / 910 220 / 910 Output: Urine 400 / 750 700 / 700 Other: Urine Color Yellow Pale Urine Appearance Clear Clear Urine Odor Normal Comment not measured Stool Occult Blood Positive Stool Size Large Large Stool Characteristics Liquid Soft Black Brown Voiding Methods Urinal Toilet Laboratory Results WBC 9.06 k/cumm (4.4-10.8) D 03/09/19 06:50 RBC 2.98 m/cumm (4.50-6.00) L 03/09/19 06:50 Hgb 9.1 g/dL (13.5-17.5) L 03/09/19 06:50 Hct 28.3 % (40.0-50.0) L 03/09/19 06:50 MCV 95.0 fL (80-95) 03/09/19 06:50 MCH 30.5 pg (27.0-33.0) 03/09/19 06:50 MCHC 32.2 g/dL (32.0-36.0) 03/09/19 06:50 RDW 15.9 % (11.8-14.1) H 03/09/19 06:50 Plt Count 361 x1000/uL (130-400) 03/09/19 06:50 MPV 10.1 fL (8.0-11.0) 03/09/19 06:50 Immature Gran % 0.7 03/09/19 06:50 Neutrophils % 69.8 03/09/19 06:50 Lymphocytes % 24.0 03/09/19 06:50 Monocytes % 5.1 03/09/19 06:50 Eosinophils % 0.3 03/09/19 06:50 Basophils % 0.1 03/09/19 06:50 Absolute Neutrophils 6.32 k/cumm (1.2-6.7) 03/09/19 06:50 Absolute Lymphocytes 2.17 k/cumm (1.2-3.4) 03/09/19 06:50 Absolute Monocytes 0.46 k/cumm (0.11-0.7) 03/09/19 06:50 Absolute Eosinophils 0.03 k/cumm (0.0-0.7) 03/09/19 06:50 Absolute Basophils 0.01 k/cumm (0.0-0.2) 03/09/19 06:50 Differential Comment Rbc morph reviewed 03/07/19 07:57 RBC Morphology See below 03/07/19 07:57 Polychromasia Present 03/07/19 07:57 Anisocytosis 1+ 03/07/19 07:57 PT 39.4 sec (9.3-11.0) H D 03/09/19 06:50 INR 4.1 (0.9-1.1) H D 03/09/19 06:50 APTT 89.0 sec (21.0-31.4) H* D 03/06/19 12:55 D-Dimer 1750 ng/mlFEU (<500) H 03/05/19 10:30 Sample Site Right radial 03/05/19 16:55 pCO2 27 mmHg (34-47) L 03/05/19 16:55 pO2 55 mmHg (83-108) L 03/05/19 16:55 O2 Saturation 88 % (94-98) L 03/05/19 16:55 ABG pH 7.48 (7.35-7.45) H 03/05/19 16:55 ABG HCO3 20 mmol/L (22-28) L 03/05/19 16:55 ABG Total CO2 19 mmol/L (22-29) L 03/05/19 16:55 ABG Base Excess -3.5 mmol/L (-3-3) L 03/05/19 16:55 FiO2 R/a % 03/05/19 16:55 Sodium 143 mmol/L (136-145) 03/09/19 06:50 Potassium 2.7 mmol/L (3.5-5.1) L* D 03/09/19 06:50 Chloride 112 mmol/L (98-107) H 03/09/19 06:50 Carbon Dioxide 21.5 mmol/L (21.0-32.0) 03/09/19 06:50 Anion Gap 9.5 mmol/L (3-11) 03/09/19 06:50 BUN 17 mg/dL (7-18) 03/09/19 06:50 Creatinine 1.19 mg/dL (0.70-1.30) 03/09/19 06:50 Estimated GFR/1.73 m2 59.76 (mL/min/1.73m2) 03/09/19 06:50 Glucose 43 mg/dL (70-100) L 03/09/19 06:50 Lactate 1.2 mmol/L (0.6-1.4) 03/07/19 07:57 Calcium 8.2 mg/dL (8.5-10.1) L 03/09/19 06:50 Magnesium 2.0 mg/dL (1.8-2.4) 03/09/19 06:50 Iron 54 ug/dL (50-175) 03/06/19 06:37 TIBC 147 ug/dL (250-450) L 03/06/19 06:37 Transferrin % Sat 37 % (20-55) 03/06/19 06:37 Ferritin > 1000 ng/mL (8-388) H 03/06/19 06:37 Total Bilirubin 0.7 mg/dL (0.2-1.0) 03/05/19 10:30 AST 33 U/L (15-37) 03/05/19 10:30 ALT 37 U/L (16-63) 03/05/19 10:30 Alkaline Phosphatase 78 U/L (46-116) 03/05/19 10:30 Troponin I < 0.05 ng/mL (0.00-0.06) 03/06/19 06:37 NT-Pro-B Natriuret Pep 615 pg/mL (-299) H 03/05/19 10:30 Total Protein 8.1 g/dL (6.4-8.2) 03/05/19 10:30 Albumin 2.7 g/dL (3.4-5.0) L 03/05/19 10:30 Vitamin B12 1113 pg/mL (193-986) H 03/06/19 06:37 Folate > 20.0 ng/mL (8.6-20.0) H 03/06/19 06:37 TSH 0.35 uIU/mL (0.36-3.74) L 03/05/19 10:30 Free T4 1.50 ng/dL (0.76-1.46) H 03/05/19 10:30 Urine Color Yellow (Yellow) 03/05/19 12:20 Urine Clarity Clear (Clear) 03/05/19 12:20 Urine pH 5.5 (5-8) 03/05/19 12:20 Ur Specific [place] >= 1.030 (1.005-1.025) H 03/05/19 12:20 Urine Protein Trace mg/dL (Negative) H 03/05/19 12:20 Urine Ketones Negative mg/dL (Negative) 03/05/19 12:20 Urine Blood Negative (Negative) 03/05/19 12:20 Urine Nitrite Negative (Negative) 03/05/19 12:20 Urine Bilirubin Small (Negative) H 03/05/19 12:20 Urine Urobilinogen 0.2 EU/dL (Up TO 0.2) 03/05/19 12:20 Ur Leukocyte Esterase Negative (Negative) 03/05/19 12:20 Urine RBC Negative (0-2) 03/05/19 12:20 Urine WBC 0-2 HPF (0-5) 03/05/19 12:20 Ur Epithelial Cells Few HPF (Negative) 03/05/19 12:20 Urine Crystals Negative HPF (Negative) 03/05/19 12:20 Urine Bacteria Negative HPF (Negative) 03/05/19 12:20 Urine Casts 0-2 hyaline LPF (Negative) 03/05/19 12:20 Urine Mucus Negative (Negative) 03/05/19 12:20 Ur Culture Indicated? No 03/05/19 12:20 Urine Glucose 500 mg/dL (Negative) H 03/05/19 12:20 Legionella Source (see note) 03/06/19 00:32 Legionella Reprt Status (see note) 03/06/19 00:32 Legionella Final Result (see note) 03/06/19 00:32 M. pneumoniae Source Nasal 03/06/19 02:00 M. pneumoniae (PCR) Negative 03/06/19 02:00 Ur Strep pneumoniae Ag Negative (Negative) 03/06/19 00:32 Patient ABO/Rh A Positive 03/07/19 07:57 Antibody Screen Negative 03/07/19 07:57 Crossmatch See Detail 03/07/19 07:57
[2019-03-09] MEDS: Acetaminophen 325 MG TAB PO (15:47)
[2019-03-09] MEDS: amLODIPine 5 MG TAB PO (15:48)
[2019-03-09] MEDS: Spironolactone 25 MG TAB PO (15:57)
[2019-03-09] MEDS: ROSUVASTATIN 20 MG TAB 40 MG PO (20:02)
[2019-03-09] MEDS: Lactobacillus Acidophilus CAP 1 CAP PO (20:02)
[2019-03-10] VITALS (10 sets, daily range): BP systolic 139–191; BP diastolic 58–82; PULSE 57–74; RESP 16–18; TEMP 36.4–37.2; O2SAT 95–98
[2019-03-10] MEDS: PIPERACILLIN/TAZO 4.5 GM in Normal Saline 100 ML IVPB ×4 (02:16→21:10)
[2019-03-10] MEDS: Normal Saline Flush 10 ML SYR IVP ×6 (02:16→21:08)
[2019-03-10] MEDS: MORPHine 2 MG/ML SYR IVP ×2 (03:46→18:10)
[2019-03-10] MEDS: Acetaminophen 325 MG TAB PO (05:58)
[2019-03-10] MEDS: Liothyronine 5 MCG TAB PO (05:59)
[2019-03-10] MEDS: Levothyroxine 150 MCG TAB PO (05:59)
[2019-03-10] MEDS: Tamsulosin 0.4 MG CAPCR PO (07:43)
[2019-03-10] MEDS: Docusate Sodium 100 MG CAP PO (07:44)
[2019-03-10] MEDS: Calcium 600mg/Vit D 200U TAB 2 TAB PO (07:44)
[2019-03-10] MEDS: methylPREDNISolone 4 MG TAB 12 MG PO (07:44)
[2019-03-10] MEDS: FLUoxetine 10 MG TAB 30 MG PO (07:44)
[2019-03-10] MEDS: buPROPion-XL 150 MG TABCR PO (07:44)
[2019-03-10] MEDS: Cholecalciferol (Vitamin D3) 1,000 UNIT TAB 2000 UNITS PO (07:45)
[2019-03-10] MEDS: Acetaminophen 500 MG TAB PO ×2 (07:45→21:09)
[2019-03-10] MEDS: Pantoprazole 40 MG TABCR PO (07:45)
[2019-03-10] MEDS: Lactobacillus Acidophilus CAP 1 CAP PO ×3 (07:46→21:09)
[2019-03-10] MEDS: Folic Acid 1 MG TAB PO (07:46)
[2019-03-10] MEDS: Finasteride 5 MG TAB PO (07:46)
[2019-03-10] MEDS: Calcitonin-Salmon, Synthetic 3.7 ML BTL NS (07:49)
[2019-03-10] MEDS: Spironolactone 50 MG TAB PO (08:08)
[2019-03-10 08:41] LABS: Abs Immature Grans 0.07 k/cumm (0.0-0.09); Absolute Basophil Count 0.01 k/cumm (0.0-0.2); Absolute Eosinophil Count 0.08 k/cumm (0.0-0.7); Absolute Lymphocyte Count 1.51 k/cumm (1.2-3.4); Absolute Monocyte Count 0.22 k/cumm (0.11-0.7); Absolute Neutrophil Count 4.18 k/cumm (1.2-6.7); Basophils % 0.2; Eosinophils % 1.3; HCT 28.4 % (40.0-50.0); HGB 9.1 g/dL (13.5-17.5); Immature Grans % 1.2; Lymphocytes % 24.9; Mean Corpuscular Hemoglobin 30.7 pg (27.0-33.0); Mean Corpuscular Volume 95.9 fL (80-95); Mean Platelet Volume 9.8 fL (8.0-11.0); Monocytes % 3.6; Neutrophils % 68.8; Platelet Count 280 x1000/uL (130-400); RBC 2.96 m/cumm (4.50-6.00); White Blood Cell Count 6.07 k/cumm (4.4-10.8)
[2019-03-10 08:46] LABS: BUN 12 mg/dL (7-18); CREATININE 1.02 mg/dL (0.70-1.30); Calcium 8.3 mg/dL (8.5-10.1); Chloride 110 mmol/L (98-107); Glucose 63 mg/dL (70-100); Magnesium 1.7 mg/dL (1.8-2.4); Sodium 142 mmol/L (136-145)
[2019-03-10 08:53] LABS: INR 2.5 (0.9-1.1); Prothrombin Time 24.9 sec (9.3-11.0)
[2019-03-10] MEDS: AZITHROMYCIN 500 MG in Normal Saline 250 ML 250 MG IVPB (10:23)
--- NOTE | 2019-03-10 10:43 | CMPROGNOTE_ITS ---
- If Service Date Differs Date of service: 03/10/19 Time of Service: 10:43 Care Management Progress Note S/O: Miguel was sitting up eating his dinner when CM met with him. His , Nohemi, was by his side. They were pleasant and engaged in conversation. He stated that he is feeling better, and that he had a chest xray today. He did not know the results, but stated that he expected to hear more tomorrow. He also stated that if he has to have surgery he would [place] [facility] [place] CM will continue to follow. A: Miguel is a 73 year old male admitted to [facility] on 03/05/2019 for vertigo and falls. P: Miguel will be discharged home when medically cleared by provider. Anticipate he will require VNA supports upon discharge. CM will continue to follow and support discharge planning considerations.
--- NOTE | 2019-03-10 11:54 | PT.INTREAT ---
Date of service: 03/10/19 Time of Service: 10:50 PT Notes Inpatient Physical Therapy Treatment Note [facility] Date: 03/10/19 PRECAUTIONS:Contact/ Droplet, Fall and Standard SUBJECTIVE: Did not sleep well last night but is willing to do his PT this morning. Knows he needs to keep moving. Complaining of ongoing back and left LE pain, especially with walking. OBJECTIVE: PAIN: Back and left LE, especially with ambulation BED MOBILITY/TRANSFERS Supine-sit: I Sit-supine: I Sit-stand: SBA Stand-sit: SBA GAIT Assistive Device: FWW and O2 supplement at 2L Weight bearing: Full Assist: SBA Distance: 100ft x 1 THEREX: Performed AP, QS, GS and active hip IR/ER x 10 to 20 reps each. ASSESSMENT: Tolerated today's activities well despite complaints of being tire and low back/ left leg discomfort. PLAN: Continue with current plan of care, with focus on improved functional mobility. TREATMENT CODE/TIME: 10:50 to 11:15 (25'), [id number] and [id number]
[2019-03-10] MEDS: Insulin Aspart 300 UNITS/3 ML PEN SC ×3 (11:57→21:08)
--- NOTE | 2019-03-10 13:35 | PGE_ITS ---
Date of Service Date of service: 03/10/19 Time of Service: 13:35 Assessment and Plan Assessment and plan (1) Pneumonia: Status: Acute Assessment and plan: likely cause of both fever and hypoxia. Exact organism unclear - and the patient is immunosuppressed, so a number of etiologies are possible, but he does appear to be getting better without bactrim, so PJP is less likely. Continue to hold immunosuppressives, continue empiric therapy with azithromycin/zosyn. Plan to complete a 7 day course. May have to reconsult with pulmonary. Consider restarting sulfasalazine and lef lunomide. CXR today showed improvement, in my opinion. Official read pending. Would attempt to complete a 7 day course. (2) Hypoxia: Status: Acute Assessment and plan: Presently, per nursing, the O2 is being worn for comfort. Wean as tolerated and monitor on ambulation. (3) Diarrhea: Status: Acute Assessment and plan: Likely side-effect of antibiotic therapy. Clinically better. ?Crohn's flare. CDiff is also ordered and pending. (4) PRISCILLA (acute kidney injury): Status: Acute Assessment and plan: Rerenal. Aldactone restarted today; off IVF. Recheck Cr in am. (5) Weakness: Status: Acute Assessment and plan: Improving. Likely secondary to infection. Continue PT. (6) Hypertension: Status: Chronic Assessment and plan: Continue Spironolactone and amlodipine; continue to hold ARB in setting of recent PRISCILLA. (7) Hyperlipidemia: Status: Acute Assessment and plan: On statin therapy. (8) Diabetes mellitus, type II, insulin dependent: Status: Acute Assessment and plan: Again hypoglycemic without evidence of adrenal insufficiency by sodium and blood pressurs. D/c long acting insulin. Continue prandial corrective insulin. Consider januvia. (9) Obstructive sleep apnea: Status: Chronic Assessment and plan: Continue CPAP. (10) Coronary artery disease: Status: Chronic Assessment and plan: s/p 5 OK's, stents, in setting of chronic inflammatory processes with RA and Crohn's Disease. Not an acute issue. - Continue statin, prn NTG. Not on asa (was on anticoagulation) - Heme + -would not start asa at this time. -heart rate dose not permit BB. (11) Crohns disease: Status: Chronic Assessment and plan: On Humira, Mesalamine, steroids. Patient also has a history of RA, maintained on Leflunomide as well. Humira is currently on hold, but he is getting mesalamine and his chronic PO steroids. Could be the cause of heme + stools. Surgery is consulted. (12) Anemia: Status: Chronic Assessment and plan: Heme + x3, s/p transfusion of 1 unit of pRBC's. General surgery consulted Iron studies with Anemia of Chronic disease. Also with abnormal thyroid function as potential etiology for worsening values. Hgb stable and improving. (13) DVT (deep venous thrombosis): Status: Chronic Assessment and plan: Hx DVT on anticoagulation, placed on hold for procedure last week that did not occur. Continue to hold due to heme + stools and anemia requiring 1 unit of pRBC's. (14) Hypothyroidism: Status: Chronic Assessment and plan: Appears to be over-replaced. Continue decreased dose of Levothyroxine. Also on Cytomel. (15) Seizure disorder: Status: Chronic Assessment and plan: Apparent manifestation with Transient speech deficits and Headache per review of neurology notes. Not an active issue. Continue monitoring off anticonvulsants. Interestingly, he is on wellbutrin, which could lower seizure treshold. (16) Hypokalemia: Status: Acute Assessment and plan: Replete (17) Hypomagnesemia: Status: Acute Assessment and plan: Replete (18) Heme + stool: Status: Acute Assessment and plan: Consult general surgery; hold anticoagulation. (19) DVT prophylaxis: Status: Acute Assessment and plan: Monitor daily INR - Coumadin on hold as above. (20) Advance directive on file: Status: Acute Assessment and plan: Full Code. Subjective Subjective Interval history since last seen: Mr Anderson states that his back is bothering him, he thinks because his arthritis medications were stopped. He States he did not sleep last night because of the pain. Denies any new dizziness (he is chronically dizzy), chest pain, nausea/vomiting. Breathing is better with oxygen on, he states. Overall he feels better. We spoke about blood in stool and being on anticoagulation. The patient states that he does not think he is having a Crohn's flare - at least, he is not having pain and diarrhea like he would normally have with a flare. He does have an outpatient diagnostic radiologic technologist. Exam Narrative Exam Narrative: General: very pleasant elderly male, laying comfortably in bed, pale HEENT: EOMI, MMM Heart: RRR, no m/r/g Lungs: quiet rhonchi/coarse respiratory sounds B GI: abdomen is soft, nontender, nondistended Extremities: no e/c/c BLE's Objective Objective Clinical Data: Abnormal lab results 03/10/19 03/10/19 03/10/19 Range/Units 08:25 08:25 08:25 RBC 2.96 L (4.50-6.00) m/cumm Hgb 9.1 L (13.5-17.5) g/dL Hct 28.4 L (40.0-50.0) % MCV 95.9 H (80-95) fL RDW 16.0 H (11.8-14.1) % PT 24.9 H D (9.3-11.0) sec INR 2.5 H D (0.9-1.1) Potassium 3.0 L (3.5-5.1) mmol/L Chloride 110 H (98-107) mmol/L Glucose 63 L (70-100) mg/dL Calcium 8.3 L (8.5-10.1) mg/dL Magnesium 1.7 L (1.8-2.4) mg/dL Vital Signs Temperature 36.5 C 03/10/19 11: Temperature Source Tympanic 03/10/19 11:19 Pulse 65 03/10/19 11:19 Pulse Rhythm Irregular 03/10/19 07:50 Pulse 101 H 03/05/19 15:40 Respiratory Rate 18 03/10/19 11:19 Respiratory Effort Non-Labored 03/10/19 07:50 Respiratory Depth Normal 03/10/19 07:50 Respiratory Pattern Normal 03/10/19 07:50 Blood Pressure 152/60 H 03/10/19 11:19 Blood Pressure Mean 76 03/05/19 15:31 Blood Pressure Position Sitting 03/05/19 10:19 Pulse Oximetry 97 03/10/19 11:19 Oxygen Delivery Method Nasal Cannula 03/10/19 11:19 Oxygen Flow Rate 1 03/10/19 11:19 Fraction of Inspired Oxygen (FIO2) 21 03/08/19 09:32 Pain Level 4 03/10/19 11:19 Comment 03/09/19 07:35 Intake & Output 11/05/2703/10/19 03/10/19 23:59 11:59 23:59 Intake Total 680 / 1820 840 / 1090 250 / 1090 Output Total 600 / 1300 1520 / 1660 140 / 1660 Balance 80 / 520 -680 / -570 110 / -570 Weight 99.7 kg Intake: IV 220 / 670 220 / 470 250 / 470 Oral 460 / 1150 620 / 620 Output: Urine 600 / 1300 1520 / 1660 140 / 1660 Other: Urine Color Yellow Yellow Yellow Urine Appearance Clear Clear Clear Urine Odor None None None Stool Occult Blood Positive Stool Size Large Moderate Stool Characteristics Soft Soft Brown Formed Voiding Methods Urinal Urinal Laboratory Results WBC 6.07 k/cumm (4.4-10.8) D 03/10/19 08:25 RBC 2.96 m/cumm (4.50-6.00) L 03/10/19 08:25 Hgb 9.1 g/dL (13.5-17.5) L 03/10/19 08:25 Hct 28.4 % (40.0-50.0) L 03/10/19 08:25 MCV 95.9 fL (80-95) H 03/10/19 08:25 MCH 30.7 pg (27.0-33.0) 03/10/19 08:25 MCHC 32.0 g/dL (32.0-36.0) 03/10/19 08:25 RDW 16.0 % (11.8-14.1) H 03/10/19 08:25 Plt Count 280 x1000/uL (130-400) 03/10/19 08:25 MPV 9.8 fL (8.0-11.0) 03/10/19 08:25 Immature Gran % 1.2 03/10/19 08:25 Neutrophils % 68.8 03/10/19 08:25 Lymphocytes % 24.9 03/10/19 08:25 Monocytes % 3.6 03/10/19 08:25 Eosinophils % 1.3 03/10/19 08:25 Basophils % 0.2 03/10/19 08:25 Absolute Neutrophils 4.18 k/cumm (1.2-6.7) 03/10/19 08:25 Absolute Lymphocytes 1.51 k/cumm (1.2-3.4) 03/10/19 08:25 Absolute Monocytes 0.22 k/cumm (0.11-0.7) 03/10/19 08:25 Absolute Eosinophils 0.08 k/cumm (0.0-0.7) 03/10/19 08:25 Absolute Basophils 0.01 k/cumm (0.0-0.2) 03/10/19 08:25 Differential Comment Rbc morph reviewed 03/07/19 07:57 RBC Morphology See below 03/07/19 07:57 Polychromasia Present 03/07/19 07:57 Anisocytosis 1+ 03/07/19 07:57 PT 24.9 sec (9.3-11.0) H D 03/10/19 08:25 INR 2.5 (0.9-1.1) H D 03/10/19 08:25 APTT 89.0 sec (21.0-31.4) H* D 03/06/19 12:55 D-Dimer 1750 ng/mlFEU (<500) H 03/05/19 10:30 Sample Site Right radial 03/05/19 16:55 pCO2 27 mmHg (34-47) L 03/05/19 16:55 pO2 55 mmHg (83-108) L 03/05/19 16:55 O2 Saturation 88 % (94-98) L 03/05/19 16:55 ABG pH 7.48 (7.35-7.45) H 03/05/19 16:55 ABG HCO3 20 mmol/L (22-28) L 03/05/19 16:55 ABG Total CO2 19 mmol/L (22-29) L 03/05/19 16:55 ABG Base Excess -3.5 mmol/L (-3-3) L 03/05/19 16:55 FiO2 R/a % 03/05/19 16:55 Sodium 142 mmol/L (136-145) 03/10/19 08:25 Potassium 3.0 mmol/L (3.5-5.1) L 03/10/19 08:25 Chloride 110 mmol/L (98-107) H 03/10/19 08:25 Carbon Dioxide 25.0 mmol/L (21.0-32.0) 03/10/19 08:25 Anion Gap 7.0 mmol/L (3-11) 03/10/19 08:25 BUN 12 mg/dL (7-18) 03/10/19 08:25 Creatinine 1.02 mg/dL (0.70-1.30) 03/10/19 08:25 Estimated GFR/1.73 m2 >= 60.00 (mL/min/1.73m2) 03/10/19 08:25 Glucose 63 mg/dL (70-100) L 03/10/19 08:25 Lactate 1.2 mmol/L (0.6-1.4) 03/07/19 07:57 Calcium 8.3 mg/dL (8.5-10.1) L 03/10/19 08:25 Magnesium 1.7 mg/dL (1.8-2.4) L 03/10/19 08:25 Iron 54 ug/dL (50-175) 03/06/19 06:37 TIBC 147 ug/dL (250-450) L 03/06/19 06:37 Transferrin % Sat 37 % (20-55) 03/06/19 06:37 Ferritin > 1000 ng/mL (8-388) H 03/06/19 06:37 Total Bilirubin 0.7 mg/dL (0.2-1.0) 03/05/19 10:30 AST 33 U/L (15-37) 03/05/19 10:30 ALT 37 U/L (16-63) 03/05/19 10:30 Alkaline Phosphatase 78 U/L (46-116) 03/05/19 10:30 Troponin I < 0.05 ng/mL (0.00-0.06) 03/06/19 06:37 NT-Pro-B Natriuret Pep 615 pg/mL (-299) H 03/05/19 10:30 Total Protein 8.1 g/dL (6.4-8.2) 03/05/19 10:30 Albumin 2.7 g/dL (3.4-5.0) L 03/05/19 10:30 Vitamin B12 1113 pg/mL (193-986) H 03/06/19 06:37 Folate > 20.0 ng/mL (8.6-20.0) H 03/06/19 06:37 TSH 0.35 uIU/mL (0.36-3.74) L 03/05/19 10:30 Free T4 1.50 ng/dL (0.76-1.46) H 03/05/19 10:30 Urine Color Yellow (Yellow) 03/05/19 12:20 Urine Clarity Clear (Clear) 03/05/19 12:20 Urine pH 5.5 (5-8) 03/05/19 12:20 Ur Specific [place] >= 1.030 (1.005-1.025) H 03/05/19 12:20 Urine Protein Trace mg/dL (Negative) H 03/05/19 12:20 Urine Ketones Negative mg/dL (Negative) 03/05/19 12:20 Urine Blood Negative (Negative) 03/05/19 12:20 Urine Nitrite Negative (Negative) 03/05/19 12:20 Urine Bilirubin Small (Negative) H 03/05/19 12:20 Urine Urobilinogen 0.2 EU/dL (Up TO 0.2) 03/05/19 12:20 Ur Leukocyte Esterase Negative (Negative) 03/05/19 12:20 Urine RBC Negative (0-2) 03/05/19 12:20 Urine WBC 0-2 HPF (0-5) 03/05/19 12:20 Ur Epithelial Cells Few HPF (Negative) 03/05/19 12:20 Urine Crystals Negative HPF (Negative) 03/05/19 12:20 Urine Bacteria Negative HPF (Negative) 03/05/19 12:20 Urine Casts 0-2 hyaline LPF (Negative) 03/05/19 12:20 Urine Mucus Negative (Negative) 03/05/19 12:20 Ur Culture Indicated? No 03/05/19 12:20 Urine Glucose 500 mg/dL (Negative) H 03/05/19 12:20 Legionella Source (see note) 03/06/19 00:32 Legionella Reprt Status (see note) 03/06/19 00:32 Legionella Final Result (see note) 03/06/19 00:32 M. pneumoniae Source Nasal 03/06/19 02:00 M. pneumoniae (PCR) Negative 03/06/19 02:00 Ur Strep pneumoniae Ag Negative (Negative) 03/06/19 00:32 Patient ABO/Rh A Positive 03/07/19 07:57 Antibody Screen Negative 03/07/19 07:57 Crossmatch See Detail 03/07/19 07:57 CXR: Asymmetric right greater than left multifocal hazy opacities with increased interstitial markings and bronchial wall thickening, could represent infectious bronchiolitis/pneumonia versus pulmonary edema process in the proper clinical setting. Recommend correlation and continued radiographic followup. Per my read, there is improvement in appearance of the lungs.
--- NOTE | 2019-03-10 13:47 | DI.RAD_ITS ---
EXAM: XR CHEST 2V PA LATERAL INDICATION: follow up pneumonia. COMPARISON: CHEST 2 VIEWS PA,LAT from 09/16/2017 XR CHEST 2V PA LATERAL from 03/05/2019 CT CHEST WO from 03/05/2019 TECHNIQUE: 2D digital imaging was performed. FINDINGS: The heart is enlarged and the aorta is tortuous, unchanged. There are increased mainly interstitial changes which appear more prominent when compared with the previous exam. No effusions are seen. Th ere are mild underlying interstitial changes. IMPRESSION: Interval worsening of bilateral infiltrates.
--- NOTE | 2019-03-10 14:20 | DI.VRAD_ITS ---
PROCEDURE INFORMATION: Exam: XR Chest, 2 Views Exam date and time: 03/10/2019 12:30 PM Clinical history: 73 years old, male; Other: Follow up pneumonia TECHNIQUE: Imaging protocol: XR of the chest Views: 2 views. COMPARISON: CR XR CHEST 2V PA LATERAL 03/05/2019 11:33 AM FINDINGS: Lungs: Asymmetric right greater than left patchy hazy opacities with increased interstitial markings and bronchial wall thickening on the right. There is right greater than left perihilar fullness. Pleural space: No pleural effusion. No pneumothorax. Heart/Mediastinum: Borderline enlarged cardiomediastinal silhouette. Bones/joints: Unremarkable. IMPRESSION: Asymmetric right greater than left multifocal hazy opacities with increased interstitial markings and bronchial wall thickening, could represent infectious bronchiolitis/pneumonia versus pulmonary edema process in the proper clinical setting. Recommend correlation and continued radiographic followup. Dictated and Authenticated by: Celestine Vargas MD. Ordering:LURDES Payne MD
[2019-03-10] MEDS: Potassium Chloride 20 MEQ TABCR 40 MEQ PO (14:32)
[2019-03-10] MEDS: POTASSIUM CHLORIDE 20 MEQ/100 ML BAG 50 MEQ IVPB ×2 (14:33→17:46)
[2019-03-10] MEDS: MAGNESIUM SULFATE 2 GM/50 ML BAG IVPB (15:17)
[2019-03-10] MEDS: amLODIPine 5 MG TAB PO (16:10)
[2019-03-10] MEDS: oxyCODONE 5 MG TAB PO (16:10)
[2019-03-10] MEDS: ROSUVASTATIN 20 MG TAB 40 MG PO (21:09)
[2019-03-11] MEDS: PIPERACILLIN/TAZO 4.5 GM in Normal Saline 100 ML IVPB ×4 (01:22→20:52)
[2019-03-11] MEDS: Normal Saline Flush 10 ML SYR IVP ×7 (01:22→20:50)
[2019-03-11] MEDS: Liothyronine 5 MCG TAB PO (05:39)
[2019-03-11] MEDS: Levothyroxine 150 MCG TAB PO (05:39)
[2019-03-11] MEDS: MORPHine 2 MG/ML SYR IVP ×2 (07:22→14:11)
[2019-03-11 07:45] VITALS: BP 159/71; PULSE 72; RESP 18; TEMP 37.5; O2SAT 95
[2019-03-11 07:50] LABS: Abs Immature Grans 0.06 k/cumm (0.0-0.09); Absolute Basophil Count 0.01 k/cumm (0.0-0.2); Absolute Eosinophil Count 0.23 k/cumm (0.0-0.7); Absolute Monocyte Count 0.24 k/cumm (0.11-0.7); Basophils % 0.2; HCT 31.7 % (40.0-50.0); HGB 10.2 g/dL (13.5-17.5); Lymphocytes % 22.6; Mean Corp. HGB Concentration 32.2 g/dL (32.0-36.0); Mean Corpuscular Hemoglobin 31.2 pg (27.0-33.0); Mean Corpuscular Volume 96.9 fL (80-95); Mean Platelet Volume 9.8 fL (8.0-11.0); Monocytes % 4.2; Platelet Count 277 x1000/uL (130-400); RBC 3.27 m/cumm (4.50-6.00); RBC Distribution Width 16.4 % (11.8-14.1); White Blood Cell Count 5.74 k/cumm (4.4-10.8)
[2019-03-11] MEDS: Lactobacillus Acidophilus CAP 1 CAP PO ×3 (07:50→20:49)
[2019-03-11] MEDS: Spironolactone 50 MG TAB PO (07:50)
[2019-03-11] MEDS: Tamsulosin 0.4 MG CAPCR PO (07:50)
[2019-03-11] MEDS: FLUoxetine 10 MG TAB 30 MG PO (07:51)
[2019-03-11] MEDS: buPROPion-XL 150 MG TABCR PO (07:51)
[2019-03-11] MEDS: Acetaminophen 500 MG TAB PO ×2 (07:51→20:49)
[2019-03-11] MEDS: Pantoprazole 40 MG TABCR PO (07:51)
[2019-03-11] MEDS: Docusate Sodium 100 MG CAP PO (07:51)
[2019-03-11] MEDS: Calcium 600mg/Vit D 200U TAB 2 TAB PO (07:52)
[2019-03-11] MEDS: methylPREDNISolone 4 MG TAB 12 MG PO (07:52)
[2019-03-11] MEDS: Finasteride 5 MG TAB PO (07:52)
[2019-03-11] MEDS: Cholecalciferol (Vitamin D3) 1,000 UNIT TAB 2000 UNITS PO (07:52)
[2019-03-11] MEDS: Folic Acid 1 MG TAB PO (07:52)
[2019-03-11] MEDS: Calcitonin-Salmon, Synthetic 3.7 ML BTL NS (07:53)
[2019-03-11 08:03] LABS: Anion Gap 10.8 mmol/L (3-11); BUN 10 mg/dL (7-18); CO2 24.2 mmol/L (21.0-32.0); CREATININE 1.01 mg/dL (0.70-1.30); Calcium 8.5 mg/dL (8.5-10.1); Chloride 104 mmol/L (98-107); Glucose 87 mg/dL (70-100); Magnesium 1.9 mg/dL (1.8-2.4); Potassium 4.1 mmol/L (3.5-5.1); Sodium 139 mmol/L (136-145)
[2019-03-11 08:13] LABS: INR 1.7 (0.9-1.1); Prothrombin Time 16.5 sec (9.3-11.0)
[2019-03-11 08:46] VITALS: PULSE 78
--- NOTE | 2019-03-11 09:02 | W.SURGCON ---
Date of service: 03/11/19 Time of Service: 08:00 Assessment and Plan Assessment and plan (1) Heme + stool: Status: Acute Assessment and plan: The patient feels that his loose stool and intermittent dark stools are typical for him. He denies any abdominal pain. He may have some ongoing mild inflammation from Crohns disease that is the cause of heme positive stools. The anemia is multifactorial. He is not having any acute issues that would require an EGD/colonoscopy at this time. 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 Please contact surgery for any change in condition. (2) Anemia: Status: Chronic History of Present Illness Narrative: This patient with multiple medical problems was admitted with weakness and hypoxia. He is being treated for pneumonia. The patient has a history of Crohn's disease and is having about 3 or 4 loose stools a day. He reports this is typical for him. Stool for C. difficile is pending given his recent antibiotic treatments. The patient denies abdominal pain. He reports no bright red rectal bleeding. He will intermittently have dark stools but this is also typical for him. He is followed by Dr. Woodruff from [facility] gastroenterology. His last colonoscopy was approximately a year ago and per the patient was unremarkable. He does have a colonoscopy every 2 years. The patient is chronically anemic and his hemoglobin is noted to be stable. Stool is heme positive. [facility] Medical History Adrenal insufficiency (Chronic) Benign prostatic hyperplasia (Acute 07/03/15) Coronary artery disease (Chronic) Crohns disease (Chronic) Diabetes mellitus, type II, insulin dependent (Acute) DVT (deep venous thrombosis) (Chronic) Erectile dysfunction of organic origin (Acute 07/03/15) GERD (gastroesophageal reflux disease) GI bleed (Chronic) Graves disease (Acute) Hyperlipidemia (Acute) Hypertension (Chronic) Hypothyroidism (Chronic) Obstructive sleep apnea (Chronic) Peripheral neuropathy (Chronic) Rheumatoid arthritis (Chronic) Sensorineural hearing loss, bilateral (Acute 01/28/15) Stroke (Chronic) 2018 Traumatic compression fracture of T12 thoracic vertebra (Acute) Vitamin B12 deficiency (Acute) Vitamin B6 deficiency (Acute) Vitamin D deficiency (Acute) Social History Smoking/Tobacco Use Status: Never Alcohol Intake: never Drug use: Never Household members: spouse Number of Children: 5 current occupation: Retired [employer] What is your relationship status?: Panel score (0-1 are the most socially isolated patients): 1 Do you feel safe at home: Yes Do you feel safe in your relationship?: Yes Exam Narrative Exam Narrative: No acute distress Abdomen soft, nondistended, nontender Results Last Vital Signs Temp 99.0 F 03/10/19 23:04 Pulse 78 03/11/19 08:46 Resp 17 03/10/19 23:04 BP 165/67 H 03/10/19 23:04 Pulse Ox 97 03/10/19 23:04 Labs Result diagrams: 03/11/19 07:25 03/11/19 07:25 Labs: Laboratory Results - last 24 hr 03/11/19 03/11/19 03/11/19 07:25 07:25 07:25 WBC 5.74 RBC 3.27 L Hgb 10.2 L Hct 31.7 L MCV 96.9 H MCH 31.2 MCHC 32.2 RDW 16.4 H Plt Count 277 MPV 9.8 Immature Gran % 1.0 Neutrophils % 68.0 Lymphocytes % 22.6 Monocytes % 4.2 Eosinophils % 4.0 Basophils % 0.2 Absolute Neutrophils 3.90 Absolute Lymphocytes 1.30 Absolute Monocytes 0.24 Absolute Eosinophils 0.23 Absolute Basophils 0.01 PT 16.5 H D INR 1.7 H D Sodium 139 Potassium 4.1 D Chloride 104 Carbon Dioxide 24.2 Anion Gap 10.8 BUN 10 Creatinine 1.01 Estimated GFR/1.73 m2 >= 60.00 Glucose 87 Calcium 8.5 Magnesium 1.9 03/11/19 08:02 WBC RBC Hgb Hct MCV MCH MCHC RDW Plt Count MPV Immature Gran % Neutrophils % Lymphocytes % Monocytes % Eosinophils % Basophils % Absolute Neutrophils Absolute Lymphocytes Absolute Monocytes Absolute Eosinophils Absolute Basophils PT Cancelled INR Cancelled Sodium Potassium Chloride Carbon Dioxide Anion Gap BUN Creatinine Estimated GFR/1.73 m2 Glucose Calcium Magnesium
[2019-03-11] MEDS: AZITHROMYCIN 500 MG in Normal Saline 250 ML 250 MG IVPB (10:22)
[2019-03-11 10:35] VITALS: PULSE 77
[2019-03-11] MEDS: oxyCODONE 5 MG TAB PO ×2 (10:39→16:43)
[2019-03-11 11:10] VITALS: O2SAT 94
[2019-03-11 11:20] VITALS: BP 127/77; PULSE 83; RESP 17; TEMP 37; O2SAT 94
--- NOTE | 2019-03-11 12:05 | PT.INTREAT ---
Date of service: 03/11/19 Time of Service: 09:25 PT Notes Inpatient Physical Therapy Treatment Note [facility] Date: 03/11/19 PRECAUTIONS:Contact/ droplet, Fall SUBJECTIVE: Stated he is not feeling well today. Is in a lot of pain in his back and left leg. Willing to try walking but finds this very uncomfortable. OBJECTIVE: PAIN: Low back and left leg pain, increased with ambulation. BED MOBILITY/TRANSFERS Supine-sit: I Sit-supine: I Sit-stand: SBA Stand-sit: SBA GAIT Assistive Device: FWW and use of O2 supplement at 2L Weight bearing: Full Assist: SBA Distance: 30ft due to pain VITALS: O2 prior to ambulation was 92% and 98% post ambulation THEREX: Performed AP, QS, GS for 10 reps each while in supine and LAQs, seated flexion and seated abd/adduction for 15 to 20 reps each. ASSESSMENT: Tolerated ther exercises well but difficulty with ambulation today due to leg and back pain. PLAN: Continue to advance as able to tolerate, as per current plan of care. TREATMENT CODE/TIME: 10:50 to 11:15 (25'), [id number] and [id number]
[2019-03-11] MEDS: Insulin Aspart 300 UNITS/3 ML PEN SC ×3 (12:07→22:27)
--- NOTE | 2019-03-11 12:17 | CMPROGNOTE_ITS ---
- If Service Date Differs Date of service: 03/11/19 Time of Service: 12:17 Care Management Progress Note S/O: Miguel was lying in bed when CM met with him. When CM asked how he was feeling today he replied jokingly, I'm alive. He was smiling and pleasant in conversation. He reported that he had a shower today which made him feel better. He also reported that per the MD, he will not have surgical intervention at this time. He stated that he is hoping to go home tomorrow. CM will continue to follow. A: Miguel is a 73 year old male admitted to [facility] on 03/05/2019 for vertigo and falls. P: Miguel will be discharged home when medically cleared by provider. Anticipate he will require VNA supports upon discharge. CM will continue to follow and support discharge planning considerations.
--- NOTE | 2019-03-11 14:17 | PGE_ITS ---
Date of Service Date of service: 03/11/19 Time of Service: 14:17 Assessment and Plan Assessment and plan (1) Pneumonia: Status: Acute Assessment and plan: likely cause of both fever and hypoxia. Reconsulting pulmonology at [facility] [place] for further recommendations/possible bronchoscopy. ?role for steroids as continues to require oxygen. Exact organism unclear - and the patient is immunosuppressed, so a number of etiologies are possible, but he does appear to be getting better without bactrim, so PJP is less likely. Continue to hold immunosuppressives, continue empiric therapy with azithromycin/zosyn (day 6). Plan to complete a 7 day course. Consider restarting sulfasalazine and leflunomide. (2) Hypoxia: Status: Acute Assessment and plan: 2L of O2 by ND today -wean as tolerated (3) Diarrhea: Status: Acute Assessment and plan: Slowing down. C.Diff negative. Likely side-effect of antibiotic therapy. ? mild Crohn's flare. (4) PRISCILLA (acute kidney injury): Status: Resolved Assessment and plan: Rerenal. Monitor on aldactone (5) Weakness: Status: Acute Assessment and plan: Improving. Likely secondary to infection. Continue PT. (6) Hypertension: Status: Chronic Assessment and plan: Continue Spironolactone and amlodipine; continue to hold ARB in setting of recent PRISCILLA. (7) Hyperlipidemia: Status: Acute Assessment and plan: On statin therapy. (8) Diabetes mellitus, type II, insulin dependent: Status: Acute Assessment and plan: Again hypoglycemic without evidence of adrenal insufficiency by sodium and blood pressurs. Continue to hold long acting insulin. Continue prandial corrective insulin. Consider januvia on discharge. (9) Obstructive sleep apnea: Status: Chronic Assessment and plan: Continue CPAP. (10) Coronary artery disease: Status: Chronic Assessment and plan: s/p 5 OK's, stents, in setting of chronic inflammatory processes with RA and Crohn's Disease. Not an acute issue. - Continue statin, prn NTG. Not on asa (was on anticoagulation) - Heme + -would not start asa at this time. -heart rate dose not permit BB. (11) Crohns disease: Status: Chronic Assessment and plan: On Humira, Mesalamine, steroids. Patient also has a history of RA, maintained on Leflunomide as well. Humira is currently on hold, but he is getting mesalamine and his chronic PO steroids. Could be the cause of heme + stools. No intervention at this time. Could resume anticoagulation carefully monitoring H/H. (12) Anemia: Status: Chronic Assessment and plan: Heme + x3, s/p transfusion of 1 unit of pRBC's. General surgery does not recommend endoscopy on admission as this is seemingly a chronic issue and the patient gets regular endoscopies at his [employer]ry [employer]. Iron studies with Anemia of Chronic disease. Also with abnormal thyroid function as potential etiology for worsening values. Hgb stable and improving. 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 Resume anticoagulation - however, if there is a plan for bronchoscopy, then it may have to be lovenox. Consulting pulmonology. (14) Hypothyroidism: Status: Chronic Assessment and plan: Appears to be over-replaced. Continue decreased dose of Levothyroxine. Also on Cytomel. (15) Seizure disorder: Status: Chronic Assessment and plan: Apparent manifestation with Transient speech deficits and Headache per review of neurology notes. Not an active issue. Continue monitoring off anticonvulsants. Interestingly, he is on wellbutrin, which could lower seizure treshold. (16) Hypokalemia: Status: Resolved Assessment and plan: Recheck in am. (17) Hypomagnesemia: Status: Resolved Assessment and plan: Recheck in am. (18) Heme + stool: Status: Acute Assessment and plan: As above - resume anticoagulation. (19) DVT prophylaxis: Status: Acute Assessment and plan: Monitor daily INR - Modality of anticoagulation to be resumed to be determined based on pulmonology recommendations (if bronchoscopy is planned, then would consider lovenox). (20) Advance directive on file: Status: Acute Assessment and plan: Full Code. Subjective Subjective Interval history since last seen: Mr Padilla states he felt short of breath without oxygen while taking a shower. He is still a little short of breath when talking to me after the shower with the oxygen on. He denies dizziness, chest pain, nausea, vomiting. Reports a runny nose and a nonproductive cough. Seen by general surgery today - no plans of endoscopy on this admission. Exam Narrative Exam Narrative: General: very pleasant elderly male, laying in bed at a 30 degree angle, mildly dyspneic, pausing to breathe after 4-5 words HEENT: EOMI, MMM Heart: RRR, no m/r/g Lungs: coarse respiratory sounds B GI: abdomen is soft, nontender, nondistended Extremities: no e/c/c BLE's Objective Objective Clinical Data: Abnormal lab results 03/11/19 03/11/19 Range/Units 07:25 07:25 RBC 3.27 L (4.50-6.00) m/cumm Hgb 10.2 L (13.5-17.5) g/dL Hct 31.7 L (40.0-50.0) % MCV 96.9 H (80-95) fL RDW 16.4 H (11.8-14.1) % PT 16.5 H D (9.3-11.0) sec INR 1.7 H D (0.9-1.1) Vital Signs Temperature 37.0 C 03/11/19 11:20 Temperature Source Tympanic 03/11/19 11:20 Pulse 83 03/11/19 11:20 Pulse Rhythm Regular 03/11/19 07:45 Pulse 101 H 03/05/19 15:40 Respiratory Rate 17 03/11/19 11:20 Respiratory Effort Non-Labored 03/11/19 07:45 Respiratory Depth Normal 03/11/19 07:45 Respiratory Pattern Normal 03/11/19 07:45 Blood Pressure 127/77 03/11/19 11:20 Blood Pressure Mean 76 03/05/19 15:31 Blood Pressure Position Sitting 03/05/19 10:19 Pulse Oximetry 94 L 03/11/19 11:20 Oxygen Delivery Method Room Air 03/11/19 11:20 Oxygen Flow Rate 0 03/11/19 11:20 Fraction of Inspired Oxygen (FIO2) 21 03/08/19 09:32 Pain Level 7 03/11/19 14:11 Comment 03/09/19 07:35 Intake & Output 03/11/19 03/11/19 03/11/19 00:59 11:59 23:59 Intake Total 250 / 1260 Output Total Balance 250 / -740 Weight Intake: IV Oral 250 / 800 Output: Urine Other: Urine Color Urine Appearance Urine Odor Comment Stool Occult Blood Stool Size Stool Characteristics Voiding Methods Laboratory Results WBC 5.74 k/cumm (4.4-10.8) 03/11/19 07:25 RBC 3.27 m/cumm (4.50-6.00) L 03/11/19 07:25 Hgb 10.2 g/dL (13.5-17.5) L 03/11/19 07:25 Hct 31.7 % (40.0-50.0) L 03/11/19 07:25 MCV 96.9 fL (80-95) H 03/11/19 07:25 MCH 31.2 pg (27.0-33.0) 03/11/19 07:25 MCHC 32.2 g/dL (32.0-36.0) 03/11/19 07:25 RDW 16.4 % (11.8-14.1) H 03/11/19 07:25 Plt Count 277 x1000/uL (130-400) 03/11/19 07:25 MPV 9.8 fL (8.0-11.0) 03/11/19 07:25 Immature Gran % 1.0 03/11/19 07:25 Neutrophils % 68.0 03/11/19 07:25 Lymphocytes % 22.6 03/11/19 07:25 Monocytes % 4.2 03/11/19 07:25 Eosinophils % 4.0 03/11/19 07:25 Basophils % 0.2 03/11/19 07:25 Absolute Neutrophils 3.90 k/cumm (1.2-6.7) 03/11/19 07:25 Absolute Lymphocytes 1.30 k/cumm (1.2-3.4) 03/11/19 07:25 Absolute Monocytes 0.24 k/cumm (0.11-0.7) 03/11/19 07:25 Absolute Eosinophils 0.23 k/cumm (0.0-0.7) 03/11/19 07:25 Absolute Basophils 0.01 k/cumm (0.0-0.2) 03/11/19 07:25 Differential Comment Rbc morph reviewed 03/07/19 07:57 RBC Morphology See below 03/07/19 07:57 Polychromasia Present 03/07/19 07:57 Anisocytosis 1+ 10/30/19 07:57 PT Cancelled 03/11/19 08:02 INR Cancelled 03/11/19 08:02 APTT 89.0 sec (21.0-31.4) H* D 03/06/19 12:55 D-Dimer 1750 ng/mlFEU (<500) H 03/05/19 10:30 Sample Site Right radial 03/05/19 16:55 pCO2 27 mmHg (34-47) L 03/05/19 16:55 pO2 55 mmHg (83-108) L 03/05/19 16:55 O2 Saturation 88 % (94-98) L 03/05/19 16:55 ABG pH 7.48 (7.35-7.45) H 03/05/19 16:55 ABG HCO3 20 mmol/L (22-28) L 03/05/19 16:55 ABG Total CO2 19 mmol/L (22-29) L 03/05/19 16:55 ABG Base Excess -3.5 mmol/L (-3-3) L 03/05/19 16:55 FiO2 R/a % 03/05/19 16:55 Sodium 139 mmol/L (136-145) 03/11/19 07:25 Potassium 4.1 mmol/L (3.5-5.1) D 03/11/19 07:25 Chloride 104 mmol/L (98-107) 03/11/19 07:25 Carbon Dioxide 24.2 mmol/L (21.0-32.0) 03/11/19 07:25 Anion Gap 10.8 mmol/L (3-11) 03/11/19 07:25 BUN 10 mg/dL (7-18) 03/11/19 07:25 Creatinine 1.01 mg/dL (0.70-1.30) 03/11/19 07:25 Estimated GFR/1.73 m2 >= 60.00 (mL/min/1.73m2) 03/11/19 07:25 Glucose 87 mg/dL (70-100) 03/11/19 07:25 Lactate 1.2 mmol/L (0.6-1.4) 03/07/19 07:57 Calcium 8.5 mg/dL (8.5-10.1) 03/11/19 07:25 Magnesium 1.9 mg/dL (1.8-2.4) 03/11/19 07:25 Iron 54 ug/dL (50-175) 03/06/19 06:37 TIBC 147 ug/dL (250-450) L 03/06/19 06:37 Transferrin % Sat 37 % (20-55) 03/06/19 06:37 Ferritin > 1000 ng/mL (8-388) H 03/06/19 06:37 Total Bilirubin 0.7 mg/dL (0.2-1.0) 03/05/19 10:30 AST 33 U/L (15-37) 03/05/19 10:30 ALT 37 U/L (16-63) 03/05/19 10:30 Alkaline Phosphatase 78 U/L (46-116) 03/05/19 10:30 Troponin I < 0.05 ng/mL (0.00-0.06) 03/06/19 06:37 NT-Pro-B Natriuret Pep 615 pg/mL (-299) H 03/05/19 10:30 Total Protein 8.1 g/dL (6.4-8.2) 03/05/19 10:30 Albumin 2.7 g/dL (3.4-5.0) L 03/05/19 10:30 Vitamin B12 1113 pg/mL (193-986) H 03/06/19 06:37 Folate > 20.0 ng/mL (8.6-20.0) H 03/06/19 06:37 TSH 0.35 uIU/mL (0.36-3.74) L 03/05/19 10:30 Free T4 1.50 ng/dL (0.76-1.46) H 03/05/19 10:30 Urine Color Yellow (Yellow) 03/05/19 12:20 Urine Clarity Clear (Clear) 03/05/19 12:20 Urine pH 5.5 (5-8) 03/05/19 12:20 Ur Specific [place] >= 1.030 (1.005-1.025) H 03/05/19 12:20 Urine Protein Trace mg/dL (Negative) H 03/05/19 12:20 Urine Ketones Negative mg/dL (Negative) 03/05/19 12:20 Urine Blood Negative (Negative) 03/05/19 12:20 Urine Nitrite Negative (Negative) 03/05/19 12:20 Urine Bilirubin Small (Negative) H 03/05/19 12:20 Urine Urobilinogen 0.2 EU/dL (Up TO 0.2) 03/05/19 12:20 Ur Leukocyte Esterase Negative (Negative) 03/05/19 12:20 Urine RBC Negative (0-2) 03/05/19 12:20 Urine WBC 0-2 HPF (0-5) 03/05/19 12:20 Ur Epithelial Cells Few HPF (Negative) 03/05/19 12:20 Urine Crystals Negative HPF (Negative) 03/05/19 12:20 Urine Bacteria Negative HPF (Negative) 03/05/19 12:20 Urine Casts 0-2 hyaline LPF (Negative) 03/05/19 12:20 Urine Mucus Negative (Negative) 03/05/19 12:20 Ur Culture Indicated? No 03/05/19 12:20 Urine Glucose 500 mg/dL (Negative) H 03/05/19 12:20 Legionella Source (see note) 03/06/19 00:32 Legionella Reprt Status (see note) 03/06/19 00:32 Legionella Final Result (see note) 03/06/19 00:32 M. pneumoniae Source Nasal 03/06/19 02:00 M. pneumoniae (PCR) Negative 03/06/19 02:00 Ur Strep pneumoniae Ag Negative (Negative) 03/06/19 00:32 Patient ABO/Rh A Positive 03/07/19 07:57 Antibody Screen Negative 03/07/19 07:57 Crossmatch See Detail 03/07/19 07:57 CXR 03/10/19: Asymmetric right greater than left multifocal hazy opacities with increased interstitial markings and bronchial wall thickening, could represent infectious bronchiolitis/pneumonia versus pulmonary edema process in the proper clinical setting. Recommend correlation and continued radiographic followup.
[2019-03-11 15:10] VITALS: BP 135/74; PULSE 86; RESP 19; TEMP 36.9
[2019-03-11] MEDS: amLODIPine 5 MG TAB PO (16:42)
[2019-03-11] MEDS: Enoxaparin 100 MG/ML SYR SC (16:43)
[2019-03-11] MEDS: methylPREDNISolone SUCC 125 MG VIAL 60 MG IVP (17:07)
[2019-03-11] MEDS: Sulfameth/Trimeth DS TAB 1 TAB PO (17:07)
[2019-03-11] MEDS: ROSUVASTATIN 20 MG TAB 40 MG PO (20:49)
[2019-03-12] MEDS: methylPREDNISolone SUCC 125 MG VIAL 60 MG IVP ×5 (00:07→23:11)
[2019-03-12] MEDS: Normal Saline Flush 10 ML SYR IVP ×5 (00:08→23:12)
[2019-03-12 00:13] VITALS: BP 166/80; PULSE 69; RESP 18; TEMP 36.4; O2SAT 96
[2019-03-12] MEDS: oxyCODONE 5 MG TAB PO ×3 (02:25→22:44)
[2019-03-12] MEDS: PIPERACILLIN/TAZO 4.5 GM in Normal Saline 100 ML IVPB ×4 (02:25→22:35)
[2019-03-12] MEDS: Enoxaparin 100 MG/ML SYR SC ×2 (05:01→16:57)
[2019-03-12] MEDS: Levothyroxine 150 MCG TAB PO (05:02)
[2019-03-12] MEDS: Liothyronine 5 MCG TAB PO (05:02)
[2019-03-12] MEDS: Sulfameth/Trimeth DS TAB 1 TAB PO ×2 (05:02→16:57)
[2019-03-12 07:23] VITALS: BP 160/92; PULSE 67; RESP 18; TEMP 36.6; O2SAT 98
[2019-03-12 07:40] LABS: Abs Immature Grans 0.05 k/cumm (0.0-0.09); Absolute Basophil Count 0.01 k/cumm (0.0-0.2); Absolute Monocyte Count 0.08 k/cumm (0.11-0.7); Basophils % 0.2; HCT 29.8 % (40.0-50.0); HGB 9.8 g/dL (13.5-17.5); Immature Grans % 0.9; Lymphocytes % 10.6; Mean Corp. HGB Concentration 32.9 g/dL (32.0-36.0); Mean Corpuscular Hemoglobin 31.7 pg (27.0-33.0); Mean Corpuscular Volume 96.4 fL (80-95); Monocytes % 1.4; Neutrophils % 86.9; Platelet Count 282 x1000/uL (130-400); RBC 3.09 m/cumm (4.50-6.00); RBC Distribution Width 16.1 % (11.8-14.1); White Blood Cell Count 5.64 k/cumm (4.4-10.8)
[2019-03-12] MEDS: Calcitonin-Salmon, Synthetic 3.7 ML BTL NS (07:55)
[2019-03-12] MEDS: Insulin Aspart 300 UNITS/3 ML PEN SC ×4 (07:56→22:55)
[2019-03-12] MEDS: methylPREDNISolone 4 MG TAB 12 MG PO (07:56)
[2019-03-12] MEDS: Acetaminophen 500 MG TAB PO ×2 (07:57→22:44)
[2019-03-12] MEDS: FLUoxetine 10 MG TAB 30 MG PO (07:57)
[2019-03-12] MEDS: Lactobacillus Acidophilus CAP 1 CAP PO ×3 (07:57→22:44)
[2019-03-12] MEDS: Folic Acid 1 MG TAB PO (07:57)
[2019-03-12] MEDS: buPROPion-XL 150 MG TABCR PO (07:57)
[2019-03-12] MEDS: Calcium 600mg/Vit D 200U TAB 2 TAB PO (07:57)
[2019-03-12] MEDS: Cholecalciferol (Vitamin D3) 1,000 UNIT TAB 2000 UNITS PO (07:57)
[2019-03-12] MEDS: Finasteride 5 MG TAB PO (07:58)
[2019-03-12] MEDS: Docusate Sodium 100 MG CAP PO (07:58)
[2019-03-12] MEDS: Pantoprazole 40 MG TABCR PO (07:58)
[2019-03-12] MEDS: Tamsulosin 0.4 MG CAPCR PO (07:58)
[2019-03-12] MEDS: Spironolactone 50 MG TAB PO (07:58)
[2019-03-12 08:05] LABS: INR 1.4 (0.9-1.1); Prothrombin Time 13.8 sec (9.3-11.0)
[2019-03-12 08:21] LABS: Anion Gap 12.3 mmol/L (3-11); BUN 16 mg/dL (7-18); CO2 21.7 mmol/L (21.0-32.0); CREATININE 1.02 mg/dL (0.70-1.30); Chloride 102 mmol/L (98-107); Glucose 288 mg/dL (70-100); LDH 413 U/L (85-227); Potassium 4.9 mmol/L (3.5-5.1); Sodium 136 mmol/L (136-145)
[2019-03-12] MEDS: AZITHROMYCIN 500 MG in Normal Saline 250 ML 250 MG IVPB (10:14)
[2019-03-12] MEDS: Fluticasone NASAL SPRAY 16 GM BTL NS (10:57)
--- NOTE | 2019-03-12 11:28 | PDOC.CMPRO ---
- If Service Date Differs Date of service: 03/12/19 Time of Service: 11:28 Care Management Progress Note S/O: Miguel is lying in bed when CM meets with him today. His and granddaughter are present in the room. Miguel is pleasant, alert and easily engages in conversation. He asks how to get oxygen for home use and wonders if he would have to pay for it out of pocket. CM advises patient that Dr. Reed has ordered an exercise oxymetry assessment and if he qualifies for home O2, his insurance should cover the cost of the oxygen, though he may have a co-pay. CM will continue to follow. A: Miguel is a 73 year old male admitted to [facility] on 03/05/2019 for vertigo and falls. P: Miguel will be discharged home when medically cleared by provider. Anticipate he will require VNA supports and new Home Health PT services upon discharge. CM will continue to follow and support discharge planning considerations.
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
--- NOTE | 2019-03-12 12:22 | PT.INPN ---
Date of service: 03/12/19 Time of Service: 11:11 PT Notes Inpatient Physical Therapy Progress Note Date: 03/12/2019 Dates of Service: 03/06/2019 through 03/12/2019 Referring Doctor: Kirill Mtz MD PT Orders: PT CONSULT: Non-urgent Precautions: Fall. Standard. Activity as tolerated. Patient Profile/Admitting Diagnosis: Patient is a 73-year-old male with past medical history significant for chronic vertigo as well as RA and Crohn's disease maintained on steroids and immunosuppressive therapy. Patient is diagnosed with Hypoxia, fever, acute kidney injury, weakness, and falls. PMHX: Medical History Adrenal insufficiency (Chronic) Benign prostatic hyperplasia (Acute 07/03/15) Coronary artery disease (Chronic) Crohns disease (Chronic) Diabetes mellitus, type II, insulin dependent (Acute) DVT (deep venous thrombosis) (Chronic) Erectile dysfunction of organic origin (Acute 07/03/15) GERD (gastroesophageal reflux disease) GI bleed (Chronic) Graves disease (Acute) Hyperlipidemia (Acute) Hypertension (Chronic) Hypothyroidism (Chronic) Obstructive sleep apnea (Chronic) Peripheral neuropathy (Chronic) Rheumatoid arthritis (Chronic) Sensorineural hearing loss, bilateral (Acute 01/28/15) Stroke (Chronic) 2018 Traumatic compression fracture of T12 thoracic vertebra (Acute) Vitamin B12 deficiency (Acute) Vitamin B6 deficiency (Acute) Vitamin D deficiency (Acute) Social History/Home Situation: Patient lives with his in a private home with no steps to enter his home. Patient has been non-ambulatory for several months now. His works during the day and patient is left alone at home. He has been on and off PT services for low back pain issues, falls, and imapired mobility. Equipment Owned/DME: Electric wheelchair, FWW, SC Subjective: Patient is happy with his current mobility gains and hopes to go home whenever it is the safest. He states that his legs are asleep stating that they are numb. After the walk however, patient felt much better. Objective: General Observation: He is on 1.5 L/min supplemental O2. Bilateral TEDS on. IV in L UE. Mental Status: Alert and oriented x 4 Pain: Patient reports mild pain on his back ROM: Lower extremities: Grossly WFL bilaterally. Strength: Right Lower Extremity: Hip flexors 4/5. Hip abductors 5/5. Knee extensors 4/5. Ankle dorsiflexors 5/5. Ankle plantarflexors 5/5. Left Lower Extremity:Hip flexors 4/5. Hip abductors 5/5. Knee extensors 5/5. Ankle dorsiflexors 5/5. Ankle plantarflexors 5/5. Bed Mobility/Transfers: Rolling Independent Supine to sit Independent Sit to supine Independent Sit to stand supervision Stand to sit supervision Bed to chair supervision Chair to bed supervision Gait: Patient is able to tolerate level surface ambulation of 120' with FWW with CGA and wheelchair follow without any standing rests. He was however mildly breathless after the activity. Oxygen saturation was 96% on 2 L Balance: Static Sitting: Good Dynamic Sitting: Fair Static Standing: Poor Dynamic Standing: Poor Special Tests: Mobility Limitations Standardized Measure [facility]-PAC 6 clicks Basic Mobility Inpatient Short Form: Raw Score: 22 CMS Score: 21% deficit Assessment: Patient is a 73 year old male admitted with hypoxia, and PRISCILLA. He previously used an electric wheelchair for ambulation and had a fall recently during a transfer from his bed. he now is dmeonstrating significant mobility improvements with increased activity tolerance for as well as independence with ambulation performance using the front-wheeled walker. He has not complained of vertigo, dizziness , and nausea for the past several days which has considerably increased his level of confidence with transfer and ambulation performance as can be seen with his increase in [facility] Raw score and a reduction of his CMS score to 21% defifict. His goals have been upgraded below with a plan to continue with discharging to home with PT. His prognosis is good for achieving goals listed below. Patient presents with clinical signs and symptoms consistent with current/admitting diagnoses that have resulted to mobility limitations, gait instability, generalized weakness, and impairment of motor control as demonstrated by the following impairment level findings: 1. Decreased strength to B LE major muscle groups 2. Impaired standing balance 3. Impaired activity tolerance Impairments are contributing to the following functional limitations: 1. Increased dependence with transfers 2. Inability to safely ambulate without assistive device and physical assistance 3. Increase completion time for mobility ADL performance 4. Increased fall risk 5. Inability to negotiate steps alone safely Patient is assessed as a 59331 high complexity based on the following: History: Patient is a 73-year-old female with past medical history as indicated above. He is diagnosed with Hypoxia, fever, acute kidney injury, weakness, and falls Examination: Demonstrable impairment in strength, balance, and range of motion with underlying impairments and functional limitations as documented above Presentation:Evolving Decision Makin high complexity Goals: Goals X1 week 1. Supine-Sit independent MET 2. Sit-Supine independent MET 3. Sit-Stand independent NOT MET, CONTINUE 4. Stand-Sit independent NOT MET, CONTINUE 5. Independent with pivot transfer using a FWW MET 6. Independent with level surface ambulation of at least 300 feet using FWW with oxygen saturation of above 90% on 1L/min of oxygen without severe breathlessness NEW GOAL Plan of Care/Treatment Plan: 1-2x/day, 7 days/week x 1 week. Plan of care has been reviewed with the WINDOWS PHONE DEVELOPER providing the service under Physical Therapy direction. Initiate Physical Therapy intervention for strengthening, bed mobility, transfers, gait, stairs, balance training, use of assistive device. DISCHARGE RECOMMENDATIONS: Patient is recommended for discharge to home under the care of his . He will continue the use of his electric wheelchair. Home health PT/OT services are recommended to address equipment needs and perform a home safety assessment. TREATMENT CODE/TIME: 09277 x 34 minutes beginning at 11:11 AM. Thank you very much for this referral. Nadia Mccormick PT, DPT, CLT [facility]
[2019-03-12 13:39] LABS: NT-proBNP 5403 pg/mL
--- NOTE | 2019-03-12 15:53 | PT.INTREAT ---
Date of service: 03/12/19 Time of Service: 15:53 PT Notes [facility] Date: 03/12/2019 PRECAUTIONS: Contact, fall SUBJECTIVE: Miguel is agreeable to participating in PT this afternoon. OBJECTIVE: PAIN: Patient c/o B LE and back pain with gait training BED MOBILITY/TRANSFERS Supine-sit: I Sit-stand: S Stand-sit: S GAIT Assistive Device: FWW Weight bearing: Full Assist: SBA Distance: 80' + 60' Deviation: Mild SOB, standing rest x1 THEREX: Patient completed a LE strengthening program, in a seated position, as per flow sheet. ASSESSMENT: Patient tolerated session with c/o increased pain in B LE and back with gait training. Patient would benefit from continued gait and transfer training as well as strengthening for improved functional mobility and activity tolerance. PLAN: Continue with PT's POC TREATMENT CODE/TIME: 30 minutes; [id number], [id number]
[2019-03-12 16:22] VITALS: BP 125/72; PULSE 94; RESP 20; TEMP 36.5; O2SAT 92
[2019-03-12] MEDS: amLODIPine 5 MG TAB PO (16:58)
[2019-03-12] MEDS: ROSUVASTATIN 20 MG TAB 40 MG PO (22:44)
[2019-03-12 23:48] VITALS: BP 160/83; PULSE 82; RESP 19; TEMP 36.1; O2SAT 95
[2019-03-13] VITALS (8 sets, daily range): BP systolic 126–176; BP diastolic 75–83; PULSE 60–100; RESP 1–28; TEMP 36–36.7; O2SAT 85–97
[2019-03-13] MEDS: Normal Saline Flush 10 ML SYR IVP ×5 (03:09→20:26)
[2019-03-13] MEDS: PIPERACILLIN/TAZO 4.5 GM in Normal Saline 100 ML IVPB ×4 (03:09→20:26)
[2019-03-13] MEDS: Enoxaparin 100 MG/ML SYR SC ×2 (05:23→15:45)
[2019-03-13] MEDS: methylPREDNISolone SUCC 125 MG VIAL 60 MG IVP ×3 (05:23→17:14)
[2019-03-13] MEDS: Levothyroxine 150 MCG TAB PO (05:24)
[2019-03-13] MEDS: Sulfameth/Trimeth DS TAB 1 TAB PO ×2 (05:24→17:14)
[2019-03-13] MEDS: Liothyronine 5 MCG TAB PO (05:24)
[2019-03-13 07:59] LABS: Abs Immature Grans 0.05 k/cumm (0.0-0.09); Absolute Lymphocyte Count 0.75 k/cumm (1.2-3.4); Absolute Monocyte Count 0.24 k/cumm (0.11-0.7); HCT 28.7 % (40.0-50.0); HGB 9.2 g/dL (13.5-17.5); Immature Grans % 0.7; Lymphocytes % 10.5; Mean Corp. HGB Concentration 32.1 g/dL (32.0-36.0); Mean Corpuscular Hemoglobin 30.8 pg (27.0-33.0); Mean Platelet Volume 9.9 fL (8.0-11.0); Monocytes % 3.4; Neutrophils % 85.4; Platelet Count 330 x1000/uL (130-400); RBC 2.99 m/cumm (4.50-6.00); RBC Distribution Width 16.3 % (11.8-14.1); White Blood Cell Count 7.14 k/cumm (4.4-10.8)
[2019-03-13] MEDS: Fluticasone NASAL SPRAY 16 GM BTL NS (08:14)
[2019-03-13] MEDS: Calcitonin-Salmon, Synthetic 3.7 ML BTL NS (08:14)
[2019-03-13] MEDS: Insulin Aspart 300 UNITS/3 ML PEN SC ×4 (08:15→22:08)
[2019-03-13] MEDS: Folic Acid 1 MG TAB PO (08:16)
[2019-03-13] MEDS: Acetaminophen 500 MG TAB PO ×2 (08:16→20:24)
[2019-03-13] MEDS: Docusate Sodium 100 MG CAP PO (08:16)
[2019-03-13] MEDS: Lactobacillus Acidophilus CAP 1 CAP PO ×3 (08:16→20:25)
[2019-03-13] MEDS: methylPREDNISolone 4 MG TAB 12 MG PO (08:16)
[2019-03-13] MEDS: Tamsulosin 0.4 MG CAPCR PO (08:16)
[2019-03-13] MEDS: Spironolactone 50 MG TAB PO (08:16)
[2019-03-13] MEDS: Finasteride 5 MG TAB PO (08:16)
[2019-03-13] MEDS: Cholecalciferol (Vitamin D3) 1,000 UNIT TAB 2000 UNITS PO (08:17)
[2019-03-13] MEDS: Pantoprazole 40 MG TABCR PO ×2 (08:17→20:25)
[2019-03-13] MEDS: buPROPion-XL 150 MG TABCR PO (08:17)
[2019-03-13] MEDS: Calcium 600mg/Vit D 200U TAB 2 TAB PO (08:17)
[2019-03-13] MEDS: FLUoxetine 10 MG TAB 30 MG PO (08:17)
[2019-03-13 08:23] LABS: Anion Gap 8.6 mmol/L (3-11); BUN 24 mg/dL (7-18); CO2 24.4 mmol/L (21.0-32.0); CREATININE 1.18 mg/dL (0.70-1.30); Calcium 8.8 mg/dL (8.5-10.1); Chloride 104 mmol/L (98-107); Glucose 204 mg/dL (70-100); Potassium 4.4 mmol/L (3.5-5.1); Sodium 137 mmol/L (136-145)
[2019-03-13 08:26] LABS: Prothrombin Time 13.5 sec (9.3-11.0)
[2019-03-13 08:28] LABS: INR 1.3 (0.9-1.1)
[2019-03-13] MEDS: AZITHROMYCIN 500 MG in Normal Saline 250 ML 250 MG IVPB (09:53)
[2019-03-13] MEDS: Albuterol/Ipratropium 3 ML UPD VIAL UPD (11:22)
[2019-03-13] MEDS: Furosemide 20 MG/2 ML VIAL IVP ×2 (11:55→15:45)
--- NOTE | 2019-03-13 12:20 | DI.RAD_ITS ---
EXAM: XR PORTABLE CHEST AP INDICATION: crackles, suspected CHF. COMPARISON: CT CHEST WO from 03/05/2019 XR CHEST 2V PA LATERAL from 03/10/2019 TECHNIQUE: 2D digital imaging was performed. FINDINGS: The heart is enlarged. The lungs are suboptimally inflated. There are increased densities seen gre atest in the right upper lobe. The left lung appears grossly unchanged given differences in techniqu e. No effusions are visible IMPRESSION: Mild interval worsening of right upper lobe infiltrate.
--- NOTE | 2019-03-13 13:09 | PT.INTREAT ---
Date of service: 03/13/19 Time of Service: 10:30 PT Notes [facility] Date: 03/13/2019 PRECAUTIONS: Fall SUBJECTIVE: Miguel is agreeable to participating in PT OBJECTIVE: Morning session completed in collaboration with Respiratory Therapy. Please see their notes for specific vital signs PAIN: Patient c/o LE and back pain with gait training BED MOBILITY/TRANSFERS Sit-stand: I Stand-sit: S GAIT Assistive Device: FWW Weight bearing: Full Assist: SBA Distance: 50' + 40' Deviation: SOB, seated rest x1, c/o increased back and LE pain THEREX: Patient completed a LE strengthening program, in a seated position, as per flow sheet. ASSESSMENT: Patient tolerated session with c/o increased pain in LE and back with gait training. Patient would benefit from continued gait and transfer training as well as strengthening for improved functional mobility and activity tolerance. PLAN: Continue with PT's POC TREATMENT CODE/TIME: Session 1: 20 minutes; [id number] x2
[2019-03-13] MEDS: amLODIPine 5 MG TAB PO (15:45)
--- NOTE | 2019-03-13 15:48 | CMPROGNOTE_ITS ---
- If Service Date Differs Date of service: 03/13/19 Time of Service: 15:48 Care Management Progress Note S/O: Miguel was lying in bed when CM met with him. He was smiling and pleasant in the conversation. He stated that there's not enough laughter in the world, as he told CM stories about his recent family reunion. He reported that his breathing is better today. CM will continue to follow. A: Miguel is a 73 year old male admitted to [facility] on 03/05/2019 for vertigo and falls. P: Miguel will be discharged home when medically cleared by provider. Anticipate he will require VNA supports and new Home Health PT services upon discharge. CM will continue to follow and support discharge planning considerations.
--- NOTE | 2019-03-13 18:07 | W.PM.PROGNOT ---
Date of Service Date of service: 03/13/19 Time of Service: 17:40 Assessment and Plan Assessment and plan (1) Pneumonia: Status: Acute Assessment and plan: likely cause of both fever and hypoxia. DDx also includes interstitial lung disease and PJP. Continue bactrim for PJP empirically, continue high dose IV steroids. Continue azithromycin and zosyn (day 8). No plans for bronchoscopy. Wean O2 as tolerated. Diurese as pulmonary edema likely did occur. Consider restarting sulfasalazine and leflunomide. (2) Hypoxia: Status: Acute Assessment and plan: As above. -wean as tolerated and assess exercise oxymetry on exertion. (3) Diarrhea: Status: Acute Assessment and plan: Acute on chronic, with h/o Crohn's. C.Diff negative. No further workup, but monitor H/H given the fact that the patient is on anticoagulation. (4) PRISCILLA (acute kidney injury): Status: Resolved Assessment and plan: Rerenal. Monitor on aldactone and bactrim. (5) Weakness: Status: Acute Assessment and plan: Improving. Likely secondary to infection. Continue PT. Actually, doing better than baseline with PT (he is in an electric wheel chair at home due to dizziness). (6) Hypertension: Status: Chronic Assessment and plan: Continue Spironolactone and amlodipine; continue to hold ARB in setting of recent PRISCILLA. Monitor Cr as diuresing (7) Hyperlipidemia: Status: Acute Assessment and plan: On statin therapy. (8) Diabetes mellitus, type II, insulin dependent: Status: Acute Assessment and plan: Now with steroid induced hyperglycemia. Titrate long acting insulin (9) Obstructive sleep apnea: Status: Chronic Assessment and plan: Continue CPAP. (10) Coronary artery disease: Status: Chronic Assessment and plan: s/p 5 MD's, stents, in setting of chronic inflammatory processes with RA and Crohn's Disease. Not an acute issue. - Continue statin, prn NTG. Not on asa (was on anticoagulation) - Heme + -would not start asa at this time. -heart rate dose not permit BB. (11) Crohns disease: Status: Chronic Assessment and plan: On Humira, Mesalamine, steroids at home. Patient also has a history of RA, maintained on Leflunomide. Humira is currently on hold, but he is getting mesalamine and his chronic PO steroids. Now, on IV steroids as well. Could be the cause of heme + stools. Monitor H/H. No intervention at this time, per general surgery. H/H has been stable so far. (12) Anemia: Status: Chronic Assessment and plan: Heme + x3, s/p transfusion of 1 unit of pRBC's. Black stools again today. On PPI - increase to BID. 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 Iron studies with Anemia of Chronic disease. Also with abnormal thyroid function as potential etiology for worsening values. Hgb stable even despite reinitiation of anticoagulation (lovenox). Increase coumadin. 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 Anticoagulation resumed - continue coumadin to lovenox bridge. (14) Hypothyroidism: Status: Chronic Assessment and plan: Appears to be over-replaced. Continue decreased dose of Levothyroxine. Also on Cytomel. (15) Seizure disorder: Status: Chronic Assessment and plan: Apparent manifestation with Transient speech deficits and Headache per review of neurology notes. Not an active issue. Continue monitoring off anticonvulsants. Interestingly, he is on wellbutrin, which could lower seizure treshold. (16) Hypokalemia: Status: Resolved Assessment and plan: Recheck in am. (17) Hypomagnesemia: Status: Resolved Assessment and plan: Recheck in am. (18) Heme + stool: Status: Acute Assessment and plan: Increase PPI. Continue anticoagulation unless H/H drops. (19) DVT prophylaxis: Status: Acute Assessment and plan: Monitor daily INR while on lovenox to coumadin bridge. (20) Advance directive on file: Status: Acute Assessment and plan: Full Code. Subjective Subjective Interval history since last seen: Mr Anderson states that he had a black stool today, though not diarrhea. He thinks his Crohn's disease is acting up. Today he was also significantly more short of breath, and nursing and respiratory therapy felt he was fluid overloaded. He received IV lasix with improvement. Denies chest pain, nausea, vomiting. Cough is nonproductive. Exam Narrative Exam Narrative: General: very pleasant elderly male, less dyspneic than yesterday, in bed at a 30 degree angle HEENT: EOMI, MMM Heart: RRR, no m/r/g Lungs: slight crackles at B bases; rhonchi on expiration B GI: abdomen is soft, nontender, nondistended Extremities: trace edema BLE's, no c/c BLE's Objective Objective Clinical Data: Abnormal lab results 03/13/19 03/13/19 03/13/19 Range/Units 07:35 07:35 07:35 RBC 2.99 L (4.50-6.00) m/cumm Hgb 9.2 L (13.5-17.5) g/dL Hct 28.7 L (40.0-50.0) % MCV 96.0 H (80-95) fL RDW 16.3 H (11.8-14.1) % Absolute Lymphocytes 0.75 L (1.2-3.4) k/cumm PT 13.5 H (9.3-11.0) sec INR 1.3 H (0.9-1.1) BUN 24 H (7-18) mg/dL Glucose 204 H D (70-100) mg/dL Vital Signs Temperature 36.7 C 03/13/19 15:25 Temperature Source Tympanic 03/13/19 15:25 Pulse 83 03/13/19 15:25 Pulse Rhythm Irregular 03/13/19 10:11 Pulse 101 H 03/05/19 15:40 Respiratory Rate 16 03/13/19 15:25 Respiratory Effort 03/13/19 10:53 Respiratory Depth Deep 03/13/19 10:53 Respiratory Pattern Normal 03/13/19 10:53 Blood Pressure 126/75 03/13/19 15:25 Blood Pressure Mean 76 03/05/19 15:31 Blood Pressure Position Sitting 03/05/19 10:19 Pulse Oximetry 96 03/13/19 15:25 Oxygen Delivery Method Room Air 03/13/19 15:25 Oxygen Flow Rate 0 03/13/19 15:25 Fraction of Inspired Oxygen (FIO2) 21 03/08/19 09:32 Pain Level 0 03/13/19 15:25 Comment 03/09/19 07:35 Intake & Output 03/12/19 03/13/19 03/13/19 23:59 11:59 23:59 Intake Total 950 / 1150 750 / 990 240 / 990 Output Total 600 / 2250 750 / 1800 1050 / 1800 Balance 350 / -1100 0 / -810 -810 / -810 Weight 95.4 kg Intake: IV 470 / 670 450 / 450 Oral 480 / 480 300 / 540 240 / 540 Output: Urine 600 / 2250 750 / 1800 1050 / 1800 Other: Urine Color Yellow Pale Pale Straw Urine Appearance Clear Clear Clear Urine Odor Normal Normal Stool Size Large Moderate Stool Characteristics Soft Soft Formed Black Brown Voiding Methods Toilet Urinal Urinal Laboratory Results WBC 7.14 k/cumm (4.4-10.8) 03/13/19 07:35 RBC 2.99 m/cumm (4.50-6.00) L 03/13/19 07:35 Hgb 9.2 g/dL (13.5-17.5) L 03/13/19 07:35 Hct 28.7 % (40.0-50.0) L 03/13/19 07:35 MCV 96.0 fL (80-95) H 03/13/19 07:35 MCH 30.8 pg (27.0-33.0) 03/13/19 07:35 MCHC 32.1 g/dL (32.0-36.0) 03/13/19 07:35 RDW 16.3 % (11.8-14.1) H 03/13/19 07:35 Plt Count 330 x1000/uL (130-400) 03/13/19 07:35 MPV 9.9 fL (8.0-11.0) 03/13/19 07:35 Immature Gran % 0.7 03/13/19 07:35 Neutrophils % 85.4 03/13/19 07:35 Lymphocytes % 10.5 03/13/19 07:35 Monocytes % 3.4 03/13/19 07:35 Eosinophils % 0.0 03/13/19 07:35 Basophils % 0.0 03/13/19 07:35 Absolute Neutrophils 6.10 k/cumm (1.2-6.7) 03/13/19 07:35 Absolute Lymphocytes 0.75 k/cumm (1.2-3.4) L 03/13/19 07:35 Absolute Monocytes 0.24 k/cumm (0.11-0.7) 03/13/19 07:35 Absolute Eosinophils 0.00 k/cumm (0.0-0.7) 03/13/19 07:35 Absolute Basophils 0.00 k/cumm (0.0-0.2) 03/13/19 07:35 Differential Comment Rbc morph reviewed 03/07/19 07:57 RBC Morphology See below 03/07/19 07:57 Polychromasia Present 03/07/19 07:57 Anisocytosis 1+ 03/07/19 07:57 PT 13.5 sec (9.3-11.0) H 03/13/19 07:35 INR 1.3 (0.9-1.1) H 03/13/19 07:35 APTT 89.0 sec (21.0-31.4) H* D 03/06/19 12:55 D-Dimer 1750 ng/mlFEU (<500) H 03/05/19 10:30 Sample Site Right radial 03/05/19 16:55 pCO2 27 mmHg (34-47) L 03/05/19 16:55 pO2 55 mmHg (83-108) L 03/05/19 16:55 O2 Saturation 88 % (94-98) L 03/05/19 16:55 ABG pH 7.48 (7.35-7.45) H 03/05/19 16:55 ABG HCO3 20 mmol/L (22-28) L 03/05/19 16:55 ABG Total CO2 19 mmol/L (22-29) L 03/05/19 16:55 ABG Base Excess -3.5 mmol/L (-3-3) L 03/05/19 16:55 FiO2 R/a % 03/05/19 16:55 Sodium 137 mmol/L (136-145) 03/13/19 07:35 Potassium 4.4 mmol/L (3.5-5.1) 03/13/19 07:35 Chloride 104 mmol/L (98-107) 03/13/19 07:35 Carbon Dioxide 24.4 mmol/L (21.0-32.0) 03/13/19 07:35 Anion Gap 8.6 mmol/L (3-11) 03/13/19 07:35 BUN 24 mg/dL (7-18) H 03/13/19 07:35 Creatinine 1.18 mg/dL (0.70-1.30) 03/13/19 07:35 Estimated GFR/1.73 m2 >= 60.00 (mL/min/1.73m2) 03/13/19 07:35 Glucose 204 mg/dL (70-100) H D 03/13/19 07:35 Lactate 1.2 mmol/L (0.6-1.4) 03/07/19 07:57 Calcium 8.8 mg/dL (8.5-10.1) 03/13/19 07:35 Magnesium 2.0 mg/dL (1.8-2.4) 03/13/19 07:35 Iron 54 ug/dL (50-175) 03/06/19 06:37 TIBC 147 ug/dL (250-450) L 03/06/19 06:37 Transferrin % Sat 37 % (20-55) 03/06/19 06:37 Ferritin > 1000 ng/mL (8-388) H 03/06/19 06:37 Total Bilirubin 0.7 mg/dL (0.2-1.0) 03/05/19 10:30 AST 33 U/L (15-37) 03/05/19 10:30 ALT 37 U/L (16-63) 03/05/19 10:30 Alkaline Phosphatase 78 U/L (46-116) 03/05/19 10:30 Lactate Dehydrogenase 413 U/L (85-227) H 03/12/19 07:15 Troponin I < 0.05 ng/mL (0.00-0.06) 03/06/19 06:37 NT-Pro-B Natriuret Pep 5403 pg/mL (-299) H 03/12/19 07:15 Total Protein 8.1 g/dL (6.4-8.2) 03/05/19 10:30 Albumin 2.7 g/dL (3.4-5.0) L 03/05/19 10:30 Vitamin B12 1113 pg/mL (193-986) H 03/06/19 06:37 Folate > 20.0 ng/mL (8.6-20.0) H 03/06/19 06:37 TSH 0.35 uIU/mL (0.36-3.74) L 03/05/19 10:30 Free T4 1.50 ng/dL (0.76-1.46) H 03/05/19 10:30 Urine Color Yellow (Yellow) 03/05/19 12:20 Urine Clarity Clear (Clear) 03/05/19 12:20 Urine pH 5.5 (5-8) 03/05/19 12:20 Ur Specific [place] >= 1.030 (1.005-1.025) H 03/05/19 12:20 Urine Protein Trace mg/dL (Negative) H 03/05/19 12:20 Urine Ketones Negative mg/dL (Negative) 03/05/19 12:20 Urine Blood Negative (Negative) 03/05/19 12:20 Urine Nitrite Negative (Negative) 03/05/19 12:20 Urine Bilirubin Small (Negative) H 03/05/19 12:20 Urine Urobilinogen 0.2 EU/dL (Up TO 0.2) 03/05/19 12:20 Ur Leukocyte Esterase Negative (Negative) 03/05/19 12:20 Urine RBC Negative (0-2) 03/05/19 12:20 Urine WBC 0-2 HPF (0-5) 03/05/19 12:20 Ur Epithelial Cells Few HPF (Negative) 03/05/19 12:20 Urine Crystals Negative HPF (Negative) 03/05/19 12:20 Urine Bacteria Negative HPF (Negative) 03/05/19 12:20 Urine Casts 0-2 hyaline LPF (Negative) 03/05/19 12:20 Urine Mucus Negative (Negative) 03/05/19 12:20 Ur Culture Indicated? No 03/05/19 12:20 Urine Glucose 500 mg/dL (Negative) H 03/05/19 12:20 Legionella Source (see note) 03/06/19 00:32 Legionella Reprt Status (see note) 03/06/19 00:32 Legionella Final Result (see note) 03/06/19 00:32 M. pneumoniae Source Nasal 03/06/19 02:00 M. pneumoniae (PCR) Negative 03/06/19 02:00 Ur Strep pneumoniae Ag Negative (Negative) 03/06/19 00:32 Patient ABO/Rh A Positive 03/07/19 07:57 Antibody Screen Negative 03/07/19 07:57 Crossmatch See Detail 03/07/19 07:57 CXR: Mild interval worsening of right upper lobe infiltrate. Pro BNP 5403 (was 615 on presentation)
[2019-03-13] MEDS: ROSUVASTATIN 20 MG TAB 40 MG PO (20:25)
[2019-03-13 20:45] LABS: Glucose 470 mg/dL (70-100)
[2019-03-14] VITALS (7 sets, daily range): BP systolic 129–147; BP diastolic 77–79; PULSE 70–92; RESP 18–19; TEMP 35.7–36.5; O2SAT 96–97
[2019-03-14] MEDS: methylPREDNISolone SUCC 125 MG VIAL 60 MG IVP ×4 (00:06→18:06)
[2019-03-14] MEDS: PIPERACILLIN/TAZO 4.5 GM in Normal Saline 100 ML IVPB ×4 (03:19→21:08)
[2019-03-14] MEDS: Levothyroxine 150 MCG TAB PO (05:01)
[2019-03-14] MEDS: Sulfameth/Trimeth DS TAB 1 TAB PO ×2 (05:02→16:17)
[2019-03-14] MEDS: Normal Saline Flush 10 ML SYR IVP ×5 (05:02→18:06)
[2019-03-14] MEDS: Liothyronine 5 MCG TAB PO (05:02)
[2019-03-14] MEDS: Enoxaparin 100 MG/ML SYR SC ×2 (05:03→16:18)
[2019-03-14 07:44] LABS: INR 1.9 (0.9-1.1); Prothrombin Time 18.5 sec (9.3-11.0)
[2019-03-14] MEDS: Insulin Aspart 300 UNITS/3 ML PEN SC ×4 (08:33→21:15)
[2019-03-14] MEDS: Spironolactone 50 MG TAB PO (08:34)
[2019-03-14] MEDS: methylPREDNISolone 4 MG TAB 12 MG PO (08:34)
[2019-03-14] MEDS: Cholecalciferol (Vitamin D3) 1,000 UNIT TAB 2000 UNITS PO (08:35)
[2019-03-14] MEDS: Acetaminophen 500 MG TAB PO ×2 (08:36→21:07)
[2019-03-14] MEDS: buPROPion-XL 150 MG TABCR PO (08:36)
[2019-03-14] MEDS: Docusate Sodium 100 MG CAP PO (08:36)
[2019-03-14] MEDS: FLUoxetine 10 MG TAB 30 MG PO (08:36)
[2019-03-14] MEDS: Tamsulosin 0.4 MG CAPCR PO (08:37)
[2019-03-14] MEDS: Calcium 600mg/Vit D 200U TAB 2 TAB PO (08:37)
[2019-03-14] MEDS: Pantoprazole 40 MG TABCR PO ×2 (08:38→21:08)
[2019-03-14] MEDS: Folic Acid 1 MG TAB PO (08:38)
[2019-03-14] MEDS: Lactobacillus Acidophilus CAP 1 CAP PO ×3 (08:38→21:08)
[2019-03-14] MEDS: Furosemide 20 MG/2 ML VIAL IVP ×2 (08:39→16:17)
[2019-03-14] MEDS: Finasteride 5 MG TAB PO (08:39)
[2019-03-14] MEDS: Calcitonin-Salmon, Synthetic 3.7 ML BTL NS (08:40)
[2019-03-14] MEDS: Fluticasone NASAL SPRAY 16 GM BTL NS (08:40)
[2019-03-14] MEDS: oxyCODONE 5 MG TAB PO (09:13)
[2019-03-14] MEDS: AZITHROMYCIN 500 MG in Normal Saline 250 ML 250 MG IVPB (09:51)
[2019-03-14 11:30] LABS: Abs Immature Grans 0.02 k/cumm (0.0-0.09); Absolute Lymphocyte Count 0.59 k/cumm (1.2-3.4); Absolute Neutrophil Count 5.38 k/cumm (1.2-6.7); HCT 30.2 % (40.0-50.0); HGB 9.6 g/dL (13.5-17.5); Immature Grans % 0.3; Lymphocytes % 9.4; Mean Corp. HGB Concentration 31.8 g/dL (32.0-36.0); Mean Corpuscular Hemoglobin 30.4 pg (27.0-33.0); Mean Corpuscular Volume 95.6 fL (80-95); Mean Platelet Volume 9.9 fL (8.0-11.0); Monocytes % 4.8; Neutrophils % 85.5; Platelet Count 367 x1000/uL (130-400); RBC 3.16 m/cumm (4.50-6.00); RBC Distribution Width 16.7 % (11.8-14.1); White Blood Cell Count 6.29 k/cumm (4.4-10.8)
[2019-03-14 11:38] LABS: Anion Gap 12.4 mmol/L (3-11); BUN 26 mg/dL (7-18); CO2 21.6 mmol/L (21.0-32.0); Calcium 8.7 mg/dL (8.5-10.1); Chloride 101 mmol/L (98-107); Estimated GFR 49.54 (mL/min/1.73m2); Glucose 309 mg/dL (70-100); Magnesium 1.8 mg/dL (1.8-2.4); Potassium 4.1 mmol/L (3.5-5.1); Sodium 135 mmol/L (136-145)
--- NOTE | 2019-03-14 12:19 | PT.INTREAT ---
Date of service: 03/14/19 Time of Service: 12:19 PT Notes [facility] Date: 03/14/2019 PRECAUTIONS: Fall SUBJECTIVE: Miguel is agreeable to participating in PT stating that he feels he is able to safely transfer from bed<>commode and chair<>commode, independently. OBJECTIVE: PAIN: Patient c/o back pain with gait training BED MOBILITY/TRANSFERS Supine-sit: I Sit-stand: I Stand-sit: I GAIT Assistive Device: FWW Weight bearing: Full Assist: SBA Distance: 50' + 100' + 50' Deviation: SOB, standing rest x3 THEREX: Patient is independent with LE strengthening program. ASSESSMENT: Patient tolerated session with c/o increased back pain with gait training. He demonstrates independence with bed mobility and transfers at this time. Patient would benefit from continued gait training for improved functional mobility and activity tolerance. PLAN: Continue with PT's POC TREATMENT CODE/TIME: Session 1: 30 minutes; [id number] x2
[2019-03-14] MEDS: amLODIPine 5 MG TAB PO (16:17)
--- NOTE | 2019-03-14 18:20 | PGE_ITS ---
Date of Service Date of service: 03/14/19 Time of Service: 16:45 Assessment and Plan Assessment and plan (1) Pneumonia: Status: Acute Assessment and plan: likely cause of both fever and hypoxia. DDx also includes interstitial lung disease and PJP. Improving. Continue bactrim for PJP empirically, continue high dose IV steroids through tomorrow prior to starting a taper. Convert azithromycin to PO and consider changing zosyn (day 9) to augmentin. No plans for bronchoscopy. Wean O2 as tolerated. Diurese as pulmonary edema likely did occur and contributing to hypoxia. (2) Hypoxia: Status: Acute Assessment and plan: As above. -wean as tolerated and assess exercise oxymetry on exertion. (3) Diarrhea: Status: Acute Assessment and plan: Acute on chronic, with h/o Crohn's. C.Diff negative. No further workup, but monitor H/H given the fact that the patient is on anticoagulation. (4) PRISCILLA (acute kidney injury): Status: Resolved Assessment and plan: Rerenal. Monitor on aldactone and bactrim. (5) Weakness: Status: Acute Assessment and plan: Improving. Likely secondary to infection. Continue PT. Actually, doing better than baseline with PT (he is in an electric wheel chair at home due to dizziness). (6) Hypertension: Status: Chronic Assessment and plan: Continue Spironolactone and amlodipine; continue to hold ARB in setting of recent PRISCILLA. Monitor Cr as diuresing (7) Hyperlipidemia: Status: Acute Assessment and plan: On statin therapy. (8) Diabetes mellitus, type II, insulin dependent: Status: Acute Assessment and plan: Now with steroid induced hyperglycemia. Titrate long acting insulin (9) Obstructive sleep apnea: Status: Chronic Assessment and plan: Continue CPAP. (10) Coronary artery disease: Status: Chronic Assessment and plan: s/p 5 KY's, stents, in setting of chronic inf lammatory processes with RA and Crohn's Disease. Not an acute issue. - Continue statin, prn NTG. Not on asa (was on anticoagulation) - Heme + -would not start asa at this time. -heart rate dose not permit BB. (11) Crohns disease: Status: Chronic Assessment and plan: On Humira, Mesalamine, steroids at home. Patient also has a history of RA, maintained on Leflunomide. Humira is currently on hold, but he is getting mesalamine and his chronic PO steroids. Now, on IV steroids as well. Could be the cause of heme + stools diarrhea. Monitor H/H. No intervention at this time, per general surgery. H/H has been stable so far. Expected to follow up with his GI as outpatient. (12) Anemia: Status: Chronic Assessment and plan: Heme + x3, s/p transfusion of 1 unit of pRBC's. Black stools again today. On PPI BID. General surgery does not recommend endoscopy on admission as this is seemingly a chronic issue and the patient gets regular endoscopies at his senior [facility]. Iron studies with Anemia of Chronic disease. Also with abnormal thyroid function as potential etiology for worsening values. Hgb stable even despite reinitiation of anticoagulation (lovenox). Increase coumadin. 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 Anticoagulation resumed - continue coumadin to lovenox bridge. (14) Hypothyroidism: Status: Chronic Assessment and plan: Appears to be over-replaced. Continue decreased dose of Levothyroxine. Also on Cytomel. (15) Seizure disorder: Status: Chronic Assessment and plan: Apparent manifestation with Transient speech deficits and Headache per review of neurology notes. Not an active issue. Continue monitoring off anticonvulsants. I have clarified that in someone who has a well treated seizure disorder, welbutrin does not cause seizures. (16) Hypokalemia: Status: Resolved Assessment and plan: Recheck in am. (17) Hypomagnesemia: Status: Resolved Assessment and plan: Recheck in am. (18) Heme + stool: Status: Acute Assessment and plan: Continue PPI BID. Continue anticoagulation unless H/H drops. (19) DVT prophylaxis: Status: Acute Assessment and plan: Monitor daily INR while on lovenox to coumadin bridge. (20) Advance directive on file: Status: Acute Assessment and plan: Full Code. Subjective Subjective Interval history since last seen: States diarrhea is bothering him a lot today. Breathing is better. Denies dizziness, chest pain, nausea. Exam Narrative Exam Narrative: General: very pleasant elderly male, Looks less short of breath - on 1L of O2 HEENT: EOMI, MMM Heart: RRR, no m/r/g Lungs: slight crackles at B bases - improved; rhonchi on expiration B - improved GI: abdomen is soft, nontender, nondistended Extremities: trace edema BLE's, no c/c BLE's Objective Objective Clinical Data: Abnormal lab results 03/13/19 03/14/19 03/14/19 Range/Units 20:28 07:02 11:16 RBC (4.50-6.00) m/cumm Hgb (13.5-17.5) g/dL Hct (40.0-50.0) % MCV (80-95) fL MCHC (32.0-36.0) g/dL RDW (11.8-14.1) % Absolute Lymphocytes (1.2-3.4) k/cumm PT 18.5 H D (9.3-11.0) sec INR 1.9 H D (0.9-1.1) Sodium 135 L (136-145) mmol/L Anion Gap 12.4 H (3-11) mmol/L BUN 26 H (7-18) mg/dL Creatinine 1.40 H (0.70-1.30) mg/dL Glucose 470 H D 309 H D (70-100) mg/dL 03/14/19 Range/Units 11:16 RBC 3.16 L (4.50-6.00) m/cumm Hgb 9.6 L (13.5-17.5) g/dL Hct 30.2 L (40.0-50.0) % MCV 95.6 H (80-95) fL MCHC 31.8 L (32.0-36.0) g/dL RDW 16.7 H (11.8-14.1) % Absolute Lymphocytes 0.59 L (1.2-3.4) k/cumm PT (9.3-11.0) sec INR (0.9-1.1) Sodium (136-145) mmol/L Anion Gap (3-11) mmol/L BUN (7-18) mg/dL Creatinine (0.70-1.30) mg/dL Glucose (70-100) mg/dL Vital Signs Temperature 36.5 C 03/14/19 16:02 Temperature Source Tympanic 03/14/19 16:02 Pulse 86 03/14/19 16:02 Pulse Rhythm Irregular 03/14/19 16:28 Pulse 101 H 03/05/19 15:40 Respiratory Rate 19 03/14/19 16:02 Respiratory Effort Non-Labored 03/14/19 16:28 Respiratory Depth Normal 03/14/19 16:28 Respiratory Pattern Normal 03/14/19 16:28 Blood Pressure 145/79 H 03/14/19 16:02 Blood Pressure Mean 76 03/05/19 15:31 Blood Pressure Position Sitting 03/05/19 10:19 Pulse Oximetry 97 03/14/19 16:31 Oxygen Delivery Method Nasal Cannula 03/14/19 16:31 Oxygen Flow Rate 2 03/14/19 16:31 Fraction of Inspired Oxygen (FIO2) 2 03/13/19 19:30 Pain Level 0 03/14/19 16:02 Comment 03/09/19 07:35 Intake & Output 03/13/19 03/14/19 03/14/19 23:59 11:59 23:59 Intake Total 1090 / 1840 830 / 1170 340 / 1170 Output Total 1850 / 2600 350 / 350 Balance -760 / -760 830 / 820 -10 / 820 Weight 94.4 kg Intake: IV 210 / 660 470 / 570 100 / 570 Oral 880 / 1180 360 / 600 240 / 600 Output: Urine 1850 / 2600 350 / 350 Other: Urine Color Yellow Yellow Urine Appearance Clear Clear Clear Stool Occult Blood Negative Stool Size Moderate Large Stool Characteristics Soft Soft Brown Liquid Voiding Methods Urinal Urinal Laboratory Results WBC 6.29 k/cumm (4.4-10.8) 03/14/19 11:16 RBC 3.16 m/cumm (4.50-6.00) L 03/14/19 11:16 Hgb 9.6 g/dL (13.5-17.5) L 03/14/19 11:16 Hct 30.2 % (40.0-50.0) L 03/14/19 11:16 MCV 95.6 fL (80-95) H 03/14/19 11:16 MCH 30.4 pg (27.0-33.0) 03/14/19 11:16 MCHC 31.8 g/dL (32.0-36.0) L 03/14/19 11:16 RDW 16.7 % (11.8-14.1) H 03/14/19 11:16 Plt Count 367 x1000/uL (130-400) 03/14/19 11:16 MPV 9.9 fL (8.0-11.0) 03/14/19 11:16 Immature Gran % 0.3 03/14/19 11:16 Neutrophils % 85.5 03/14/19 11:16 Lymphocytes % 9.4 03/14/19 11:16 Monocytes % 4.8 03/14/19 11:16 Eosinophils % 0.0 03/14/19 11:16 Basophils % 0.0 03/14/19 11:16 Absolute Neutrophils 5.38 k/cumm (1.2-6.7) 03/14/19 11:16 Absolute Lymphocytes 0.59 k/cumm (1.2-3.4) L 03/14/19 11:16 Absolute Monocytes 0.30 k/cumm (0.11-0.7) 03/14/19 11:16 Absolute Eosinophils 0.00 k/cumm (0.0-0.7) 03/14/19 11:16 Absolute Basophils 0.00 k/cumm (0.0-0.2) 03/14/19 11:16 Differential Comment Rbc morph reviewed 03/07/19 07:57 RBC Morphology See below 03/07/19 07:57 Polychromasia Present 03/07/19 07:57 Anisocytosis 1+ 03/07/19 07:57 PT 18.5 sec (9.3-11.0) H D 03/14/19 07:02 INR 1.9 (0.9-1.1) H D 03/14/19 07:02 APTT 89.0 sec (21.0-31.4) H* D 03/06/19 12:55 D-Dimer 1750 ng/mlFEU (<500) H 03/05/19 10:30 Sample Site Right radial 03/05/19 16:55 pCO2 27 mmHg (34-47) L 03/05/19 16:55 pO2 55 mmHg (83-108) L 03/05/19 16:55 O2 Saturation 88 % (94-98) L 03/05/19 16:55 ABG pH 7.48 (7.35-7.45) H 03/05/19 16:55 ABG HCO3 20 mmol/L (22-28) L 03/05/19 16:55 ABG Total CO2 19 mmol/L (22-29) L 03/05/19 16:55 ABG Base Excess -3.5 mmol/L (-3-3) L 03/05/19 16:55 FiO2 R/a % 03/05/19 16:55 Sodium 135 mmol/L (136-145) L 03/14/19 11:16 Potassium 4.1 mmol/L (3.5-5.1) 03/14/19 11:16 Chloride 101 mmol/L (98-107) 03/14/19 11:16 Carbon Dioxide 21.6 mmol/L (21.0-32.0) 03/14/19 11:16 Anion Gap 12.4 mmol/L (3-11) H 03/14/19 11:16 BUN 26 mg/dL (7-18) H 03/14/19 11:16 Creatinine 1.40 mg/dL (0.70-1.30) H 03/14/19 11:16 Estimated GFR/1.73 m2 49.54 (mL/min/1.73m2) 03/14/19 11:16 Glucose 309 mg/dL (70-100) H D 03/14/19 11:16 Lactate 1.2 mmol/L (0.6-1.4) 03/07/19 07:57 Calcium 8.7 mg/dL (8.5-10.1) 03/14/19 11:16 Magnesium 1.8 mg/dL (1.8-2.4) 03/14/19 11:16 Iron 54 ug/dL (50-175) 03/06/19 06:37 TIBC 147 ug/dL (250-450) L 03/06/19 06:37 Transferrin % Sat 37 % (20-55) 03/06/19 06:37 Ferritin > 1000 ng/mL (8-388) H 03/06/19 06:37 Total Bilirubin 0.7 mg/dL (0.2-1.0) 03/05/19 10:30 AST 33 U/L (15-37) 03/05/19 10:30 ALT 37 U/L (16-63) 03/05/19 10:30 Alkaline Phosphatase 78 U/L (46-116) 03/05/19 10:30 Lactate Dehydrogenase 413 U/L (85-227) H 03/12/19 07:15 Troponin I < 0.05 ng/mL (0.00-0.06) 03/06/19 06:37 NT-Pro-B Natriuret Pep 5403 pg/mL (-299) H 03/12/19 07:15 Total Protein 8.1 g/dL (6.4-8.2) 03/05/19 10:30 Albumin 2.7 g/dL (3.4-5.0) L 03/05/19 10:30 Vitamin B12 1113 pg/mL (193-986) H 03/06/19 06:37 Folate > 20.0 ng/mL (8.6-20.0) H 03/06/19 06:37 TSH 0.35 uIU/mL (0.36-3.74) L 03/05/19 10:30 Free T4 1.50 ng/dL (0.76-1.46) H 03/05/19 10:30 Urine Color Yellow (Yellow) 03/05/19 12:20 Urine Clarity Clear (Clear) 03/05/19 12:20 Urine pH 5.5 (5-8) 03/05/19 12:20 Ur Specific Hitchcock >= 1.030 (1.005-1.025) H 03/05/19 12:20 Urine Protein Trace mg/dL (Negative) H 03/05/19 12:20 Urine Ketones Negative mg/dL (Negative) 03/05/19 12:20 Urine Blood Negative (Negative) 03/05/19 12:20 Urine Nitrite Negative (Negative) 03/05/19 12:20 Urine Bilirubin Small (Negative) H 03/05/19 12:20 Urine Urobilinogen 0.2 EU/dL (Up TO 0.2) 03/05/19 12:20 Ur Leukocyte Esterase Negative (Negative) 03/05/19 12:20 Urine RBC Negative (0-2) 03/05/19 12:20 Urine WBC 0-2 HPF (0-5) 03/05/19 12:20 Ur Epithelial Cells Few HPF (Negative) 03/05/19 12:20 Urine Crystals Negative HPF (Negative) 03/05/19 12:20 Urine Bacteria Negative HPF (Negative) 03/05/19 12:20 Urine Casts 0-2 hyaline LPF (Negative) 03/05/19 12:20 Urine Mucus Negative (Negative) 03/05/19 12:20 Ur Culture Indicated? No 03/05/19 12:20 Urine Glucose 500 mg/dL (Negative) H 03/05/19 12:20 Legionella Source (see note) 03/06/19 00:32 Legionella Reprt Status (see note) 03/06/19 00:32 Legionella Final Result (see note) 03/06/19 00:32 M. pneumoniae Source Nasal 03/06/19 02:00 M. pneumoniae (PCR) Negative 03/06/19 02:00 Ur Strep pneumoniae Ag Negative (Negative) 03/06/19 00:32 Patient ABO/Rh A Positive 03/07/19 07:57 Antibody Screen Negative 03/07/19 07:57 Crossmatch See Detail 03/07/19 07:57
--- NOTE | 2019-03-14 19:27 | CMPROGNOTE_ITS ---
- If Service Date Differs Date of service: 03/14/19 Time of Service: 19:27 Care Management Progress Note S/O: Miguel was lying in bed when CM met with him. He reported that he had been walking around with PT today, and that he was feeling ok. He stated that he knows from previous experience not to garcia out of the hospital, so he is comfortable at [facility] until his symptoms are managed well. 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 He reported that it was very helpful for him. CM will continue to follow. A: Miguel is a 73 year old male admitted to [facility] on 03/05/2019 for vertigo and falls. P: Miguel will be discharged home when medically cleared by provider. Anticipate he will require VNA supports and new Home Health PT services upon discharge. CM will continue to follow and support discharge planning considerations.
[2019-03-14] MEDS: ROSUVASTATIN 20 MG TAB 40 MG PO (21:07)
[2019-03-15] MEDS: methylPREDNISolone SUCC 125 MG VIAL 60 MG IVP ×4 (00:30→18:09)
[2019-03-15] MEDS: Normal Saline Flush 10 ML SYR IVP ×4 (00:30→18:09)
[2019-03-15] MEDS: PIPERACILLIN/TAZO 4.5 GM in Normal Saline 100 ML IVPB ×2 (02:30→07:55)
[2019-03-15] MEDS: Enoxaparin 100 MG/ML SYR SC ×2 (05:08→15:32)
[2019-03-15] MEDS: Levothyroxine 150 MCG TAB PO (05:09)
[2019-03-15] MEDS: Liothyronine 5 MCG TAB PO (05:09)
[2019-03-15] MEDS: Sulfameth/Trimeth DS TAB 1 TAB PO ×2 (05:21→21:02)
[2019-03-15 07:22] VITALS: BP 173/73; PULSE 60; RESP 17; TEMP 36.1; O2SAT 96
[2019-03-15 07:22] LABS: Abs Immature Grans 0.04 k/cumm (0.0-0.09); Absolute Lymphocyte Count 0.58 k/cumm (1.2-3.4); Absolute Neutrophil Count 5.22 k/cumm (1.2-6.7); HCT 30.2 % (40.0-50.0); HGB 9.4 g/dL (13.5-17.5); Immature Grans % 0.7; Lymphocytes % 9.4; Mean Corp. HGB Concentration 31.1 g/dL (32.0-36.0); Mean Corpuscular Hemoglobin 30.2 pg (27.0-33.0); Mean Corpuscular Volume 97.1 fL (80-95); Mean Platelet Volume 9.8 fL (8.0-11.0); Monocytes % 4.9; Platelet Count 307 x1000/uL (130-400); RBC 3.11 m/cumm (4.50-6.00); RBC Distribution Width 16.6 % (11.8-14.1); White Blood Cell Count 6.14 k/cumm (4.4-10.8)
[2019-03-15 07:33] LABS: Anion Gap 9.9 mmol/L (3-11); BUN 33 mg/dL (7-18); CO2 24.1 mmol/L (21.0-32.0); CREATININE 1.41 mg/dL (0.70-1.30); Calcium 8.8 mg/dL (8.5-10.1); Chloride 103 mmol/L (98-107); Estimated GFR 49.13 (mL/min/1.73m2); Glucose 286 mg/dL (70-100); Magnesium 1.9 mg/dL (1.8-2.4); Sodium 137 mmol/L (136-145)
[2019-03-15 07:41] LABS: INR 3.8 (0.9-1.1); Prothrombin Time 37.2 sec (9.3-11.0)
[2019-03-15] MEDS: Calcium 600mg/Vit D 200U TAB 2 TAB PO (07:55)
[2019-03-15] MEDS: methylPREDNISolone 4 MG TAB 12 MG PO (07:55)
[2019-03-15] MEDS: Finasteride 5 MG TAB PO (07:56)
[2019-03-15] MEDS: Pantoprazole 40 MG TABCR PO ×2 (07:56→20:59)
[2019-03-15] MEDS: FLUoxetine 10 MG TAB 30 MG PO (07:56)
[2019-03-15] MEDS: Lactobacillus Acidophilus CAP 1 CAP PO ×3 (07:56→20:59)
[2019-03-15] MEDS: Azithromycin 250 MG TAB 500 MG PO (07:56)
[2019-03-15] MEDS: Cholecalciferol (Vitamin D3) 1,000 UNIT TAB 2000 UNITS PO (07:57)
[2019-03-15] MEDS: buPROPion-XL 150 MG TABCR PO (07:57)
[2019-03-15] MEDS: Acetaminophen 500 MG TAB PO ×2 (07:57→21:00)
[2019-03-15] MEDS: Spironolactone 50 MG TAB PO (07:57)
[2019-03-15] MEDS: Tamsulosin 0.4 MG CAPCR PO (07:57)
[2019-03-15] MEDS: Calcitonin-Salmon, Synthetic 3.7 ML BTL NS (07:58)
[2019-03-15] MEDS: Furosemide 20 MG/2 ML VIAL IVP ×2 (07:58→15:32)
[2019-03-15] MEDS: Insulin Aspart 300 UNITS/3 ML PEN SC ×4 (08:03→21:04)
[2019-03-15] MEDS: Folic Acid 1 MG TAB PO (08:03)
[2019-03-15] MEDS: Fluticasone NASAL SPRAY 16 GM BTL NS (08:20)
[2019-03-15] MEDS: oxyCODONE 5 MG TAB PO (09:51)
--- NOTE | 2019-03-15 10:35 | PT.INTREAT ---
Date of service: 03/15/19 Time of Service: 10:35 PT Notes [facility] Date: 03/15/2019 PRECAUTIONS: Fall SUBJECTIVE: Sonido states that he is feeling pretty good today, he is looking forward to taking a shower this morning. He is agreeable to participating in PT. OBJECTIVE: PAIN: Patient c/o LE pain with gait training BED MOBILITY/TRANSFERS Supine-sit: I Sit-stand: I Stand-sit: I GAIT Assistive Device: FWW Weight bearing: Full Assist: S Distance: 200' + 50' Deviation: Increased LE pain, seated rest x1, 1L O2 NC THEREX: Patient is independent with LE strengthening program. ASSESSMENT: Patient tolerated session with c/o increased LE pain with gait training, requiring seated rest x1. He was able to tolerate a progression in gait distance with FWW support and supervision, prior to requiring rest due to pain. He demonstrates independence with bed mobility and transfers, as well as LE strengthening at this time. PLAN: As per primary PT TREATMENT CODE/TIME: 20 minutes; 10441 x2
--- NOTE | 2019-03-15 10:42 | DI.RAD_ITS ---
EXAM: XR CHEST 2V PA LATERAL CLINICAL HISTORY: follow up pneumonia +/- CHF COMPARISON: CHEST 2 VIEWS PA,LAT from 09/16/2017 XR CHEST 2V PA LATERAL from 03/05/2019 XR PORTABLE CHEST AP from 03/13/2019 FINDINGS: The heart is enlarged. Note is again made of bilateral diffuse patchy intrapulmonary radiodensities with a reticulonodular appearance. Findings are grossly unchanged in comparison with previous examin ation of March 13. No gross pleural effusion identified. IMPRESSION: Stable appearance of intrapulmonary radiodensities since March 13. These findings were not prese nt on previous examinations in 2018 and presumably represent non resolving pneumonia or other non res olving process. Appropriate follow-up study requested. You may wish to obtain a chest CT as well to compare with recent chest CT of March 05.
[2019-03-15] MEDS: Amoxicillin 875/Clav. 125 TAB PO ×2 (11:43→20:59)
[2019-03-15 11:50] VITALS: RESP 24; RESP 8; O2SAT 94
[2019-03-15] MEDS: Albuterol/Ipratropium 3 ML UPD VIAL UPD (11:50)
[2019-03-15 11:56] VITALS: PULSE 92; RESP 24; RESP 8; O2SAT 94
[2019-03-15 13:30] VITALS: O2SAT 93
[2019-03-15] MEDS: amLODIPine 5 MG TAB PO (15:32)
--- NOTE | 2019-03-15 15:51 | W.PM.PROGNOT ---
Date of Service Date of service: 03/15/19 Time of Service: 15:53 Assessment and Plan Assessment and plan (1) Pneumonia: Status: Acute Assessment and plan: likely cause of both fever and hypoxia. DDx also includes interstitial lung disease and PJP. For repeat CT chest. Continue bactrim for PJP empirically, continue high dose IV steroids, PO azithromycin, and consider changing zosyn (day 10) to augmentin. No plans for bronchoscopy. Wean O2 as tolerated. Diurese as pulmonary edema likely did occur and contributing to hypoxia. (2) Hypoxia: Status: Acute Assessment and plan: As above. -wean as tolerated and assess exercise oxymetry on exertion. (3) Diarrhea: Status: Acute Assessment and plan: Acute on chronic, with h/o Crohn's. C.Diff negative. No further workup, but monitor H/H given the fact that the patient is on anticoagulation. (4) PRISCILLA (acute kidney injury): Status: Resolved Assessment and plan: Rerenal. Monitor on aldactone and bactrim. (5) Weakness: Status: Acute Assessment and plan: Improving. Likely secondary to infection. Continue PT. Actually, doing better than baseline with PT (he is in an electric wheel chair at home due to dizziness). (6) Hypertension: Status: Chronic Assessment and plan: Continue Spironolactone and amlodipine; continue to hold ARB in setting of recent PRISCILLA. Monitor Cr as diuresing (7) Hyperlipidemia: Status: Acute Assessment and plan: On statin therapy. (8) Diabetes mellitus, type II, insulin dependent: Status: Acute Assessment and plan: Now with steroid induced hyperglycemia. Titrate long acting insulin (9) Obstructive sleep apnea: Status: Chronic Assessment and plan: Continue CPAP. (10) Coronary artery disease: Status: Chronic Assessment and plan: s/p 5 NM's, stents, in setting of chronic inflammatory processes with RA and Crohn's Disease. Not an acute issue. - Continue statin, prn NTG. Not on asa (was on anticoagulation) - Heme + -would not start asa at this time. -heart rate dose not permit BB. (11) Crohns disease: Status: Chronic Assessment and plan: On Humira, Mesalamine, steroids at home. Patient also has a history of RA, maintained on Leflunomide. Humira is currently on hold, but he is getting mesalamine and his chronic PO steroids. Now, on IV steroids as well. Could be the cause of heme + stools diarrhea. Monitor H/H. No intervention at this time, per general surgery. H/H has been stable so far. Expected to follow up with his GI as outpatient. (12) Anemia: Status: Chronic Assessment and plan: Heme + x3, s/p transfusion of 1 unit of pRBC's. Black stools reported, but H/H stable. On PPI BID. 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 Iron studies with Anemia of Chronic disease. Also with abnormal thyroid function as potential etiology for worsening values. Hgb stable even despite reinitiation of anticoagulation. Hold coumadin given supratherapeutic INR. 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 INR supratherapeutic - d/c lovenox, hold coumadin.. (14) Hypothyroidism: Status: Chronic Assessment and plan: Appears to be over-replaced. Continue decreased dose of Levothyroxine. Also on Cytomel. (15) Seizure disorder: Status: Chronic Assessment and plan: Apparent manifestation with Transient speech deficits and Headache per review of neurology notes. Not an active issue. Continue monitoring off anticonvulsants. I have clarified that in someone who has a well treated seizure disorder, welbutrin does not cause seizures. (16) Hypokalemia: Status: Resolved Assessment and plan: Recheck in am. (17) Hypomagnesemia: Status: Resolved Assessment and plan: Recheck in am. (18) Heme + stool: Status: Acute Assessment and plan: Continue PPI BID. Hold anticoagulation until INR 2-3. (19) DVT prophylaxis: Status: Acute Assessment and plan: Monitor daily INR - currently supratherapeutic. (20) Advance directive on file: Status: Acute Assessment and plan: Full Code. Subjective Subjective Interval history since last seen: Mr Padilla reports ENGEL. Denies dizziness, chest pain, shortness of breath, nausea. CXR fails to reveal improvement - clinically, he has been improving though. On 1L of O2 at rest. Exam Narrative Exam Narrative: General: very pleasant elderly male, mildly tachypneic in bed - on 1L of O2 HEENT: EOMI, MMM Heart: RRR, no m/r/g Lungs: slight crackles at B bases - improved; rhonchi on expiration B - improved GI: abdomen is soft, nontender, nondistended Extremities: no edema BLE's, no c/c BLE's Objective Objective Clinical Data: Abnormal lab results 03/15/19 03/15/19 03/15/19 Range/Units 07:05 07:05 07:05 RBC 3.11 L (4.50-6.00) m/cumm Hgb 9.4 L (13.5-17.5) g/dL Hct 30.2 L (40.0-50.0) % MCV 97.1 H (80-95) fL MCHC 31.1 L (32.0-36.0) g/dL RDW 16.6 H (11.8-14.1) % Absolute Lymphocytes 0.58 L (1.2-3.4) k/cumm PT 37.2 H D (9.3-11.0) sec INR 3.8 H D (0.9-1.1) BUN 33 H (7-18) mg/dL Creatinine 1.41 H (0.70-1.30) mg/dL Glucose 286 H (70-100) mg/dL Vital Signs Temperature 36.1 C L 03/15/19 07:22 Temperature Source Tympanic 03/15/19 07:22 Pulse 92 H 03/15/19 11:56 Pulse Rhythm Irregular 03/15/19 08:27 Pulse 101 H 03/05/19 15:40 Respiratory Rate 24 03/15/19 11:56 Respiratory Effort Non-Labored 03/15/19 08:27 Respiratory Depth Normal 03/15/19 08:27 Respiratory Pattern Normal 03/15/19 08:27 Blood Pressure 173/73 H 03/15/19 07:22 Blood Pressure Mean 76 03/05/19 15:31 Blood Pressure Position Sitting 03/05/19 10:19 Pulse Oximetry 93 L 03/15/19 13:30 Oxygen Delivery Method Nasal Cannula 03/15/19 13:30 Oxygen Flow Rate 1 03/15/19 13:30 Fraction of Inspired Oxygen (FIO2) 2 03/13/19 19:30 Pain Level 4 03/15/19 10:14 Comment 03/09/19 07:35 Intake & Output 03/14/19 03/15/19 03/15/19 23:59 11:59 23:59 Intake Total 450 / 1280 200 / 200 Output Total 1000 / 1000 500 / 500 Balance -550 / 280 -300 / -300 Weight 93.7 kg Intake: IV 210 / 680 200 / 200 Oral 240 / 600 Output: Urine 1000 / 1000 500 / 500 Other: Urine Color Yellow Yellow Urine Appearance Clear Clear Urine Odor None None Stool Occult Blood Negative Stool Size Moderate Stool Characteristics Soft Brown Voiding Methods Urinal Urinal Laboratory Results WBC 6.14 k/cumm (4.4-10.8) 03/15/19 07:05 RBC 3.11 m/cumm (4.50-6.00) L 03/15/19 07:05 Hgb 9.4 g/dL (13.5-17.5) L 03/15/19 07:05 Hct 30.2 % (40.0-50.0) L 03/15/19 07:05 MCV 97.1 fL (80-95) H 03/15/19 07:05 MCH 30.2 pg (27.0-33.0) 03/15/19 07:05 MCHC 31.1 g/dL (32.0-36.0) L 03/15/19 07:05 RDW 16.6 % (11.8-14.1) H 03/15/19 07:05 Plt Count 307 x1000/uL (130-400) 03/15/19 07:05 MPV 9.8 fL (8.0-11.0) 03/15/19 07:05 Immature Gran % 0.7 03/15/19 07:05 Neutrophils % 85.0 03/15/19 07:05 Lymphocytes % 9.4 03/15/19 07:05 Monocytes % 4.9 03/15/19 07:05 Eosinophils % 0.0 03/15/19 07:05 Basophils % 0.0 03/15/19 07:05 Absolute Neutrophils 5.22 k/cumm (1.2-6.7) 03/15/19 07:05 Absolute Lymphocytes 0.58 k/cumm (1.2-3.4) L 03/15/19 07:05 Absolute Monocytes 0.30 k/cumm (0.11-0.7) 03/15/19 07:05 Absolute Eosinophils 0.00 k/cumm (0.0-0.7) 03/15/19 07:05 Absolute Basophils 0.00 k/cumm (0.0-0.2) 03/15/19 07:05 Differential Comment Rbc morph reviewed 03/07/19 07:57 RBC Morphology See below 03/07/19 07:57 Polychromasia Present 03/07/19 07:57 Anisocytosis 1+ 03/07/19 07:57 PT 37.2 sec (9.3-11.0) H D 03/15/19 07:05 INR 3.8 (0.9-1.1) H D 03/15/19 07:05 APTT 89.0 sec (21.0-31.4) H* D 03/06/19 12:55 D-Dimer 1750 ng/mlFEU (<500) H 03/05/19 10:30 Sample Site Right radial 03/05/19 16:55 pCO2 27 mmHg (34-47) L 03/05/19 16:55 pO2 55 mmHg (83-108) L 03/05/19 16:55 O2 Saturation 88 % (94-98) L 03/05/19 16:55 ABG pH 7.48 (7.35-7.45) H 03/05/19 16:55 ABG HCO3 20 mmol/L (22-28) L 03/05/19 16:55 ABG Total CO2 19 mmol/L (22-29) L 03/05/19 16:55 ABG Base Excess -3.5 mmol/L (-3-3) L 03/05/19 16:55 FiO2 R/a % 03/05/19 16:55 Sodium 137 mmol/L (136-145) 03/15/19 07:05 Potassium 4.0 mmol/L (3.5-5.1) 03/15/19 07:05 Chloride 103 mmol/L (98-107) 03/15/19 07:05 Carbon Dioxide 24.1 mmol/L (21.0-32.0) 03/15/19 07:05 Anion Gap 9.9 mmol/L (3-11) 03/15/19 07:05 BUN 33 mg/dL (7-18) H 03/15/19 07:05 Creatinine 1.41 mg/dL (0.70-1.30) H 03/15/19 07:05 Estimated GFR/1.73 m2 49.13 (mL/min/1.73m2) 03/15/19 07:05 Glucose 286 mg/dL (70-100) H 03/15/19 07:05 Lactate 1.2 mmol/L (0.6-1.4) 03/07/19 07:57 Calcium 8.8 mg/dL (8.5-10.1) 03/15/19 07:05 Magnesium 1.9 mg/dL (1.8-2.4) 03/15/19 07:05 Iron 54 ug/dL (50-175) 03/06/19 06:37 TIBC 147 ug/dL (250-450) L 03/06/19 06:37 Transferrin % Sat 37 % (20-55) 03/06/19 06:37 Ferritin > 1000 ng/mL (8-388) H 03/06/19 06:37 Total Bilirubin 0.7 mg/dL (0.2-1.0) 03/05/19 10:30 AST 33 U/L (15-37) 03/05/19 10:30 ALT 37 U/L (16-63) 03/05/19 10:30 Alkaline Phosphatase 78 U/L (46-116) 03/05/19 10:30 Lactate Dehydrogenase 413 U/L (85-227) H 03/12/19 07:15 Troponin I < 0.05 ng/mL (0.00-0.06) 03/06/19 06:37 NT-Pro-B Natriuret Pep 5403 pg/mL (-299) H 03/12/19 07:15 Total Protein 8.1 g/dL (6.4-8.2) 03/05/19 10:30 Albumin 2.7 g/dL (3.4-5.0) L 03/05/19 10:30 Vitamin B12 1113 pg/mL (193-986) H 03/06/19 06:37 Folate > 20.0 ng/mL (8.6-20.0) H 03/06/19 06:37 TSH 0.35 uIU/mL (0.36-3.74) L 03/05/19 10:30 Free T4 1.50 ng/dL (0.76-1.46) H 03/05/19 10:30 Urine Color Yellow (Yellow) 03/05/19 12:20 Urine Clarity Clear (Clear) 03/05/19 12:20 Urine pH 5.5 (5-8) 03/05/19 12:20 Ur Specific Molino >= 1.030 (1.005-1.025) H 03/05/19 12:20 Urine Protein Trace mg/dL (Negative) H 03/05/19 12:20 Urine Ketones Negative mg/dL (Negative) 03/05/19 12:20 Urine Blood Negative (Negative) 03/05/19 12:20 Urine Nitrite Negative (Negative) 03/05/19 12:20 Urine Bilirubin Small (Negative) H 03/05/19 12:20 Urine Urobilinogen 0.2 EU/dL (Up TO 0.2) 03/05/19 12:20 Ur Leukocyte Esterase Negative (Negative) 03/05/19 12:20 Urine RBC Negative (0-2) 03/05/19 12:20 Urine WBC 0-2 HPF (0-5) 03/05/19 12:20 Ur Epithelial Cells Few HPF (Negative) 03/05/19 12:20 Urine Crystals Negative HPF (Negative) 03/05/19 12:20 Urine Bacteria Negative HPF (Negative) 03/05/19 12:20 Urine Casts 0-2 hyaline LPF (Negative) 03/05/19 12:20 Urine Mucus Negative (Negative) 03/05/19 12:20 Ur Culture Indicated? No 03/05/19 12:20 Urine Glucose 500 mg/dL (Negative) H 03/05/19 12:20 Legionella Source (see note) 03/06/19 00:32 Legionella Reprt Status (see note) 03/06/19 00:32 Legionella Final Result (see note) 03/06/19 00:32 M. pneumoniae Source Nasal 03/06/19 02:00 M. pneumoniae (PCR) Negative 03/06/19 02:00 Aspergillus Ag (EIA) <0.500 index (<0.5) 03/12/19 07:15 Ur Strep pneumoniae Ag Negative (Negative) 03/06/19 00:32 Patient ABO/Rh A Positive 03/07/19 07:57 Antibody Screen Negative 03/07/19 07:57 Crossmatch See Detail 03/07/19 07:57
[2019-03-15 16:00] VITALS: BP 147/53; PULSE 82; RESP 19; TEMP 36.8; O2SAT 92
--- NOTE | 2019-03-15 16:37 | CMPROGNOTE_ITS ---
- If Service Date Differs Date of service: 03/15/19 Time of Service: 16:37 Care Management Progress Note S/O: Miguel was sitting up in bed when CM met with him. He reported that he was feeling pretty good today, and that he did well working with PT. He stated that he is in no garcia to go home. He requested HH RN to help him with med management. He is also agreeable to PT/OT. CM will continue to follow. A: Miguel is a 73 year old male admitted to [facility] on 03/05/2019 for vertigo and falls. P: Miguel will be discharged home when medically cleared by provider. Anticipate he will require VNA supports and new Home Health PT, RN services upon discharge. CM will continue to follow and support discharge planning considerations.
--- NOTE | 2019-03-15 17:11 | DI.CT_ITS ---
EXAM: CT CHEST WO CLINICAL HISTORY: follow up pneumonia TECHNIQUE: The exam was performed according to the usual protocol without contrast. COMPARISON: CT CHEST WO from 03/05/2019 XR CHEST 2V PA LATERAL from 03/15/2019 FINDINGS: Bronchiectasis is again noted, greater in the lower lung willis. Ground glass opacities are again no jason, greater in the right upper lobe. There are underlying interstitial changes. There is some incr ease in interstitial changes when compared with the previous exam. No pleural or pericardial effusio ns or acute area of consolidation is seen. No mass is identified. The heart is enlarged. Pulmonary arteries dilated to 3.7 cm, consistent with pulmonary artery hypertension. The aorta shows calcific ation and measures 3.7 cm in diameter. No pneumothorax or acute fracture is seen. IMPRESSION: Increasing interstitial changes when compared with the previous exam. Some improvement of ground-gla ss opacities.
--- NOTE | 2019-03-15 17:29 | DI.VRAD_ITS ---
PROCEDURE INFORMATION: Exam: CT Chest Without Contrast Exam date and time: 03/15/2019 5:06 PM Clinical history: 73 years old, male; Other: Follow up pneumonia TECHNIQUE: Imaging protocol: Computed tomography of the chest without contrast. Radiation optimization: All CT scans at this facility use at least one of these dose optimization techniques: automated exposure control; mA and/or kV adjustment per patient size (includes targeted exams where dose is matched to clinical indication); or iterative reconstruction. COMPARISON: CT CHEST WO 03/05/2019 6:36 PM FINDINGS: Lungs: Diffuse bilateral interstitial/alveolar pattern with bronchiectatic changes. In comparison with prior study dated 03/05/2019 there is less groundglass pattern with an increase in interstitial changes. Pleural space: Unremarkable. No pneumothorax. No pleural effusion. Heart: Coronary artery calcifications are present. Pulmonary arteries: The main pulmonary artery is dilated measuring 37 mm consistent with pulmonary artery hypertension. Aorta: There is an ectatic ascending aorta measuring 3.7 cm. Aorta demonstrates moderate atherosclerotic calcification. Lymph nodes: Unremarkable. No enlarged lymph nodes. Bones/joints: Degenerative changes of the thoracic spine without acute osseous abnormality. Soft tissues: Unremarkable. IMPRESSION: 1. Diffuse bilateral interstitial/alveolar pattern with bronchiectatic changes. In comparison with prior study dated 03/05/2019 there is less groundglass pattern with an increase in interstitial changes. 2. Pulmonary artery hypertension. 3. Ectatic ascending aorta measuring 3.7 cm. Dictated and Authenticated by: Miguel Brennan MD. Ordering:LURDES Payne MD
[2019-03-15] MEDS: ROSUVASTATIN 20 MG TAB 40 MG PO (20:59)
[2019-03-16 00:24] VITALS: BP 144/88; PULSE 64; RESP 19; TEMP 36.5; O2SAT 98
[2019-03-16] MEDS: methylPREDNISolone SUCC 125 MG VIAL 60 MG IVP ×4 (00:26→20:23)
[2019-03-16] MEDS: Normal Saline Flush 10 ML SYR IVP ×8 (00:27→20:35)
[2019-03-16] MEDS: Levothyroxine 150 MCG TAB PO (06:13)
[2019-03-16] MEDS: Liothyronine 5 MCG TAB PO (06:13)
[2019-03-16] MEDS: Sulfameth/Trimeth DS TAB 1 TAB PO ×2 (06:16→20:23)
[2019-03-16 07:15] VITALS: BP 157/73; PULSE 63; RESP 20; TEMP 36.8; O2SAT 95
[2019-03-16 07:28] LABS: Abs Immature Grans 0.02 k/cumm (0.0-0.09); Absolute Basophil Count 0.01 k/cumm (0.0-0.2); Absolute Lymphocyte Count 0.97 k/cumm (1.2-3.4); Absolute Monocyte Count 0.27 k/cumm (0.11-0.7); Absolute Neutrophil Count 5.39 k/cumm (1.2-6.7); Basophils % 0.2; HCT 30.7 % (40.0-50.0); HGB 9.7 g/dL (13.5-17.5); Immature Grans % 0.3; Lymphocytes % 14.6; Mean Corp. HGB Concentration 31.6 g/dL (32.0-36.0); Mean Corpuscular Hemoglobin 30.7 pg (27.0-33.0); Mean Corpuscular Volume 97.2 fL (80-95); Monocytes % 4.1; Neutrophils % 80.8; Platelet Count 324 x1000/uL (130-400); RBC 3.16 m/cumm (4.50-6.00); RBC Distribution Width 16.7 % (11.8-14.1); White Blood Cell Count 6.66 k/cumm (4.4-10.8)
[2019-03-16 07:40] LABS: INR 3.1 (0.9-1.1); Prothrombin Time 30.3 sec (9.3-11.0)
[2019-03-16 07:54] LABS: Anion Gap 10.9 mmol/L (3-11); BUN 36 mg/dL (7-18); CO2 23.1 mmol/L (21.0-32.0); CREATININE 1.34 mg/dL (0.70-1.30); Calcium 9.1 mg/dL (8.5-10.1); Chloride 103 mmol/L (98-107); Estimated GFR 52.11 (mL/min/1.73m2); Glucose 224 mg/dL (70-100); Magnesium 2.1 mg/dL (1.8-2.4); Potassium 4.5 mmol/L (3.5-5.1); Sodium 137 mmol/L (136-145)
[2019-03-16 07:57] LABS: Anisocytosis 1+; Diff Comment RBC Morph Reviewed; Macrocytosis 1+; Polychromasia Present
[2019-03-16 08:04] VITALS: O2SAT 97
[2019-03-16] MEDS: FLUoxetine 10 MG TAB 30 MG PO (08:33)
[2019-03-16] MEDS: methylPREDNISolone 4 MG TAB 10 MG PO (08:34)
[2019-03-16] MEDS: Finasteride 5 MG TAB PO (08:35)
[2019-03-16] MEDS: Azithromycin 250 MG TAB 500 MG PO (08:35)
[2019-03-16] MEDS: buPROPion-XL 150 MG TABCR PO (08:35)
[2019-03-16] MEDS: Lactobacillus Acidophilus CAP 1 CAP PO ×3 (08:35→20:23)
[2019-03-16] MEDS: Cholecalciferol (Vitamin D3) 1,000 UNIT TAB 2000 UNITS PO (08:35)
[2019-03-16] MEDS: Calcium 600mg/Vit D 200U TAB 2 TAB PO (08:36)
[2019-03-16] MEDS: Spironolactone 50 MG TAB PO (08:36)
[2019-03-16] MEDS: Amoxicillin 875/Clav. 125 TAB PO ×2 (08:36→20:23)
[2019-03-16] MEDS: Pantoprazole 40 MG TABCR PO ×2 (08:36→20:22)
[2019-03-16] MEDS: Folic Acid 1 MG TAB PO (08:37)
[2019-03-16] MEDS: Docusate Sodium 100 MG CAP PO (08:37)
[2019-03-16] MEDS: Tamsulosin 0.4 MG CAPCR PO (08:37)
[2019-03-16] MEDS: Furosemide 20 MG/2 ML VIAL IVP ×3 (08:37→18:57)
[2019-03-16] MEDS: Acetaminophen 500 MG TAB PO ×2 (08:37→20:23)
[2019-03-16] MEDS: Insulin Aspart 300 UNITS/3 ML PEN SC ×4 (08:38→22:58)
[2019-03-16] MEDS: Fluticasone NASAL SPRAY 16 GM BTL NS (08:40)
[2019-03-16] MEDS: Calcitonin-Salmon, Synthetic 3.7 ML BTL NS (08:40)
--- NOTE | 2019-03-16 10:17 | PDOC.CMPRO ---
- If Service Date Differs Date of service: 03/16/19 Time of Service: 10:17 Care Management Progress Note S/O: Miguel is sitting in a chair when CM meets with him today. He reports he is feeling pretty good and is doing everything he's supposed to do to get better. He states he is no longer working with PT but continues to do the exercises he was taught because he finds them helpful. Miguel remains on O2. CM will continue to follow. A: Miguel is a 73 year old male admitted to [facility] on 03/05/2019 for vertigo and falls. P: Miguel will be discharged home when medically cleared by provider. Anticipate he will require VNA supports and new Home Health PT and RN services upon discharge. CM will continue to follow and support discharge planning considerations.
[2019-03-16] MEDS: Furosemide 20 MG/2 ML VIAL 40 MG IVP (16:21)
[2019-03-16] MEDS: amLODIPine 5 MG TAB PO (16:23)
--- NOTE | 2019-03-16 18:56 | PGE_ITS ---
Date of Service Date of service: 03/16/19 Time of Service: 18:56 Assessment and Plan Assessment and plan (1) Pneumonia: Status: Acute Assessment and plan: likely cause of both fever and hypoxia. DDx also includes interstitial lung disease and PJP. Repeat CT with improvement of the ground glass opacities (the infectious component), but increase in interstital changes (per radiology, pulmonary edema). Continue bactrim for PJP empirically, start to taper high dose IV steroids, PO azithromycin (day 11), and change zosyn (day 11) to augmentin. No plans for bronchoscopy (risks outweigh benefits, per [facility]). Wean O2 as tolerated. Intensify Diuresis as pulmonary edema likely did occur and contributing to hypoxia. (2) Hypoxia: Status: Acute Assessment and plan: As above. -wean as tolerated and assess exercise oxymetry on exertion. (3) Diarrhea: Status: Acute Assessment and plan: Acute on chronic, with h/o Crohn's. C.Diff negative. No further workup, but monitor H/H given the fact that the patient is on anticoagulation. (4) PRISCILLA (acute kidney injury): Status: Resolved Assessment and plan: Rerenal. Monitor on aldactone and bactrim. Cr is actually better today. (5) Weakness: Status: Acute Assessment and plan: Improving. Likely secondary to infection. Continue PT. Actually, doing better than baseline with PT (he is in an electric wheel chair at home due to dizziness). (6) Hypertension: Status: Chronic Assessment and plan: Continue Spironolactone and amlodipine; continue to hold ARB in setting of recent PRISCILLA. Monitor Cr as diuresing (7) Hyperlipidemia: Status: Acute Assessment and plan: On statin therapy. (8) Diabetes mellitus, type II, insulin dependent: Status: Acute Assessment and plan: Now with steroid induced hyperglycemia. Titrate long acting insulin (9) Obstructive sleep apnea: Status: Chronic Assessment and plan: Continue CPAP. (10) Coronary artery disease: Status: Chronic Assessment and plan: s/p 5 OR's, stents, in setting of chronic inflammatory processes with RA and Crohn's Disease. Not an acute issue. - Continue statin, prn NTG. Not on asa (was on anticoagulation) - Heme + -would not start asa at this time. -heart rate dose not permit BB. (11) Crohns disease: Status: Chronic Assessment and plan: Per pharmacy, who reviewed rheumatology records, the patient is no longer on humira. He is on mesalamine, leflunomide (for RA), and steroids at home. He is on IV steroids here - we are tapering these today. Could be the cause of heme + stools diarrhea. Monitor H/H. No intervention at this time, per general surgery. H/H has been stable so far, even on anticoagulation and while Heme +. Expected to follow up with his GI as outpatient. (12) Anemia: Status: Chronic Assessment and plan: Heme + x3, s/p transfusion of 1 unit of pRBC's. Black stools reported, but H/H stable. On PPI BID. Ok to continue anticoagulation. 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 Iron studies with Anemia of Chronic disease. Also with abnormal thyroid function as potential etiology for worsening values. Continue to hold coumadin given supratherapeutic INR. 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 INR supratherapeutic - hold coumadin.. (14) Hypothyroidism: Status: Chronic Assessment and plan: Appears to be over-replaced. Continue decreased dose of Levothyroxine. Also on Cytomel. (15) Seizure disorder: Status: Chronic Assessment and plan: Apparent manifestation with Transient speech deficits and Headache per review of neurology notes. Not an active issue. Continue monitoring off anticonvulsants. I have clarified that in someone who has a well treated seizure disorder, welbutrin does not cause seizures. (16) Hypokalemia: Status: Resolved Assessment and plan: Recheck in am. (17) Hypomagnesemia: Status: Resolved Assessment and plan: Recheck in am. (18) Heme + stool: Status: Acute Assessment and plan: Continue PPI BID. Hold anticoagulation until INR 2-3. (19) DVT prophylaxis: Status: Acute Assessment and plan: Monitor daily INR - currently supratherapeutic. (20) Advance directive on file: Status: Acute Assessment and plan: Full Code. Subjective Subjective Interval history since last seen: Mr Padilla states he is still pretty short of breath. He says that the nebs help, but he hadn't asked for any today. Agrees to have one now. Complains of dizziness on and off. Denies chest pain, nausea, vomiting. Per my discussion with radiology today, his CT chest is showing improvement in the infectious component of his disease, but also shows increase in pulmonary edema. Exam Narrative Exam Narrative: General: very pleasant elderly male, mildly tachypneic in bed - on 1L of O2, looks about the same as yesterday HEENT: EOMI, MMM Heart: RRR, no m/r/g Lungs: no wheezing or crackles heard today - he actually sounds quite a bit better GI: abdomen is soft, nontender, nondistended Extremities: no edema BLE's, no c/c BLE's Objective Objective Clinical Data: Abnormal lab results 03/16/19 03/16/19 03/16/19 Range/Units 07:10 07:10 07:10 RBC 3.16 L (4.50-6.00) m/cumm Hgb 9.7 L (13.5-17.5) g/dL Hct 30.7 L (40.0-50.0) % MCV 97.2 H (80-95) fL MCHC 31.6 L (32.0-36.0) g/dL RDW 16.7 H (11.8-14.1) % Absolute Lymphocytes 0.97 L (1.2-3.4) k/cumm PT 30.3 H (9.3-11.0) sec INR 3.1 H D (0.9-1.1) BUN 36 H (7-18) mg/dL Creatinine 1.34 H (0.70-1.30) mg/dL Glucose 224 H (70-100) mg/dL Vital Signs Temperature 36.8 C 03/16/19 07:15 Temperature Source Tympanic 03/16/19 07:15 Pulse 63 03/16/19 07:15 Pulse Rhythm Irregular 03/16/19 15:09 Pulse 101 H 03/05/19 15:40 Respiratory Rate 20 03/16/19 07:15 Respiratory Effort 03/16/19 15:09 Respiratory Depth Normal 03/16/19 15:09 Respiratory Pattern Normal 03/16/19 15:09 Blood Pressure 157/73 H 03/16/19 07:15 Blood Pressure Mean 76 03/05/19 15:31 Blood Pressure Position Sitting 03/05/19 10:19 Pulse Oximetry 97 03/16/19 08:04 Oxygen Delivery Method Nasal Cannula 03/16/19 08:04 Oxygen Flow Rate 1 03/16/19 08:04 Fraction of Inspired Oxygen (FIO2) 2 03/13/19 19:30 Pain Level 4 03/16/19 08:37 Comment 03/09/19 07:35 Intake & Output 03/15/19 03/16/19 03/16/19 23:59 11:59 23:59 Intake Total 480 / 680 400 / 1360 960 / 1360 Output Total 1000 / 1500 Balance -520 / -820 400 / 1360 960 / 1360 Weight 93.6 kg Intake: IV Oral 480 / 480 390 / 1350 960 / 1350 Output: Urine 1000 / 1500 Other: Urine Color Yellow Urine Appearance Clear Clear Urine Odor None Stool Size Moderate Stool Characteristics Soft Laboratory Results WBC 6.66 k/cumm (4.4-10.8) 03/16/19 07:10 RBC 3.16 m/cumm (4.50-6.00) L 03/16/19 07:10 Hgb 9.7 g/dL (13.5-17.5) L 03/16/19 07:10 Hct 30.7 % (40.0-50.0) L 03/16/19 07:10 MCV 97.2 fL (80-95) H 03/16/19 07:10 MCH 30.7 pg (27.0-33.0) 03/16/19 07:10 MCHC 31.6 g/dL (32.0-36.0) L 03/16/19 07:10 RDW 16.7 % (11.8-14.1) H 03/16/19 07:10 Plt Count 324 x1000/uL (130-400) 03/16/19 07:10 MPV 10.0 fL (8.0-11.0) 03/16/19 07:10 Immature Gran % 0.3 03/16/19 07:10 Neutrophils % 80.8 03/16/19 07:10 Lymphocytes % 14.6 03/16/19 07:10 Monocytes % 4.1 03/16/19 07:10 Eosinophils % 0.0 03/16/19 07:10 Basophils % 0.2 03/16/19 07:10 Absolute Neutrophils 5.39 k/cumm (1.2-6.7) 03/16/19 07:10 Absolute Lymphocytes 0.97 k/cumm (1.2-3.4) L 03/16/19 07:10 Absolute Monocytes 0.27 k/cumm (0.11-0.7) 03/16/19 07:10 Absolute Eosinophils 0.00 k/cumm (0.0-0.7) 03/16/19 07:10 Absolute Basophils 0.01 k/cumm (0.0-0.2) 03/16/19 07:10 Differential Comment Rbc morph reviewed 03/16/19 07:10 RBC Morphology See below 03/16/19 07:10 Polychromasia Present 03/16/19 07:10 Anisocytosis 1+ 03/16/19 07:10 Macrocytosis 1+ 03/16/19 07:10 PT 30.3 sec (9.3-11.0) H 03/16/19 07:10 INR 3.1 (0.9-1.1) H D 03/16/19 07:10 APTT 89.0 sec (21.0-31.4) H* D 03/06/19 12:55 D-Dimer 1750 ng/mlFEU (<500) H 03/05/19 10:30 Sample Site Right radial 03/05/19 16:55 pCO2 27 mmHg (34-47) L 03/05/19 16:55 pO2 55 mmHg (83-108) L 03/05/19 16:55 O2 Saturation 88 % (94-98) L 03/05/19 16:55 ABG pH 7.48 (7.35-7.45) H 03/05/19 16:55 ABG HCO3 20 mmol/L (22-28) L 03/05/19 16:55 ABG Total CO2 19 mmol/L (22-29) L 03/05/19 16:55 ABG Base Excess -3.5 mmol/L (-3-3) L 03/05/19 16:55 FiO2 R/a % 03/05/19 16:55 Sodium 137 mmol/L (136-145) 03/16/19 07:10 Potassium 4.5 mmol/L (3.5-5.1) 03/16/19 07:10 Chloride 103 mmol/L (98-107) 03/16/19 07:10 Carbon Dioxide 23.1 mmol/L (21.0-32.0) 03/16/19 07:10 Anion Gap 10.9 mmol/L (3-11) 03/16/19 07:10 BUN 36 mg/dL (7-18) H 03/16/19 07:10 Creatinine 1.34 mg/dL (0.70-1.30) H 03/16/19 07:10 Estimated GFR/1.73 m2 52.11 (mL/min/1.73m2) 03/16/19 07:10 Glucose 224 mg/dL (70-100) H 03/16/19 07:10 Lactate 1.2 mmol/L (0.6-1.4) 03/07/19 07:57 Calcium 9.1 mg/dL (8.5-10.1) 03/16/19 07:10 Magnesium 2.1 mg/dL (1.8-2.4) 03/16/19 07:10 Iron 54 ug/dL (50-175) 03/06/19 06:37 TIBC 147 ug/dL (250-450) L 03/06/19 06:37 Transferrin % Sat 37 % (20-55) 03/06/19 06:37 Ferritin > 1000 ng/mL (8-388) H 03/06/19 06:37 Total Bilirubin 0.7 mg/dL (0.2-1.0) 03/05/19 10:30 AST 33 U/L (15-37) 03/05/19 10:30 ALT 37 U/L (16-63) 03/05/19 10:30 Alkaline Phosphatase 78 U/L (46-116) 03/05/19 10:30 Lactate Dehydrogenase 413 U/L (85-227) H 03/12/19 07:15 Troponin I < 0.05 ng/mL (0.00-0.06) 03/06/19 06:37 NT-Pro-B Natriuret Pep 5403 pg/mL (-299) H 03/12/19 07:15 Total Protein 8.1 g/dL (6.4-8.2) 03/05/19 10:30 Albumin 2.7 g/dL (3.4-5.0) L 03/05/19 10:30 Vitamin B12 1113 pg/mL (193-986) H 03/06/19 06:37 Folate > 20.0 ng/mL (8.6-20.0) H 03/06/19 06:37 TSH 0.35 uIU/mL (0.36-3.74) L 03/05/19 10:30 Free T4 1.50 ng/dL (0.76-1.46) H 03/05/19 10:30 Urine Color Yellow (Yellow) 03/05/19 12:20 Urine Clarity Clear (Clear) 03/05/19 12:20 Urine pH 5.5 (5-8) 03/05/19 12:20 Ur Specific [place] >= 1.030 (1.005-1.025) H 03/05/19 12:20 Urine Protein Trace mg/dL (Negative) H 03/05/19 12:20 Urine Ketones Negative mg/dL (Negative) 03/05/19 12:20 Urine Blood Negative (Negative) 03/05/19 12:20 Urine Nitrite Negative (Negative) 03/05/19 12:20 Urine Bilirubin Small (Negative) H 03/05/19 12:20 Urine Urobilinogen 0.2 EU/dL (Up TO 0.2) 03/05/19 12:20 Ur Leukocyte Esterase Negative (Negative) 03/05/19 12:20 Urine RBC Negative (0-2) 03/05/19 12:20 Urine WBC 0-2 HPF (0-5) 03/05/19 12:20 Ur Epithelial Cells Few HPF (Negative) 03/05/19 12:20 Urine Crystals Negative HPF (Negative) 03/05/19 12:20 Urine Bacteria Negative HPF (Negative) 03/05/19 12:20 Urine Casts 0-2 hyaline LPF (Negative) 03/05/19 12:20 Urine Mucus Negative (Negative) 03/05/19 12:20 Ur Culture Indicated? No 03/05/19 12:20 Urine Glucose 500 mg/dL (Negative) H 03/05/19 12:20 Legionella Source (see note) 03/06/19 00:32 Legionella Reprt Status (see note) 03/06/19 00:32 Legionella Final Result (see note) 03/06/19 00:32 M. pneumoniae Source Nasal 03/06/19 02:00 M. pneumoniae (PCR) Negative 03/06/19 02:00 Aspergillus Ag (EIA) <0.500 index (<0.5) 03/12/19 07:15 Ur Strep pneumoniae Ag Negative (Negative) 03/06/19 00:32 Patient ABO/Rh A Positive 03/07/19 07:57 Antibody Screen Negative 03/07/19 07:57 Crossmatch See Detail 03/07/19 07:57
[2019-03-16] MEDS: Albuterol/Ipratropium 3 ML UPD VIAL UPD (20:22)
[2019-03-16] MEDS: ROSUVASTATIN 20 MG TAB 40 MG PO (20:23)
[2019-03-16 20:52] VITALS: RESP 1
[2019-03-16 22:50] LABS: Glucose 613 mg/dL (70-100)
[2019-03-17 00:33] VITALS: BP 138/74; PULSE 70; RESP 18; TEMP 36.9; O2SAT 97
[2019-03-17] MEDS: Albuterol/Ipratropium 3 ML UPD VIAL UPD (02:12)
[2019-03-17 02:42] VITALS: RESP 1
[2019-03-17] MEDS: Levothyroxine 150 MCG TAB PO (06:10)
[2019-03-17] MEDS: Sulfameth/Trimeth DS TAB 1 TAB PO ×2 (06:10→20:21)
[2019-03-17] MEDS: Liothyronine 5 MCG TAB PO (06:10)
[2019-03-17 06:57] LABS: Abs Immature Grans 0.04 k/cumm (0.0-0.09); Absolute Basophil Count 0.01 k/cumm (0.0-0.2); Absolute Lymphocyte Count 1.01 k/cumm (1.2-3.4); Absolute Monocyte Count 0.49 k/cumm (0.11-0.7); Absolute Neutrophil Count 6.53 k/cumm (1.2-6.7); Basophils % 0.1; HCT 31.1 % (40.0-50.0); Immature Grans % 0.5; Lymphocytes % 12.5; Mean Corp. HGB Concentration 32.2 g/dL (32.0-36.0); Mean Corpuscular Hemoglobin 30.8 pg (27.0-33.0); Mean Corpuscular Volume 95.7 fL (80-95); Monocytes % 6.1; Neutrophils % 80.8; Platelet Count 313 x1000/uL (130-400); RBC 3.25 m/cumm (4.50-6.00); RBC Distribution Width 16.4 % (11.8-14.1); White Blood Cell Count 8.08 k/cumm (4.4-10.8)
[2019-03-17 07:06] LABS: Prothrombin Time 19.8 sec (9.3-11.0)
[2019-03-17 07:17] LABS: Anion Gap 9.1 mmol/L (3-11); BUN 39 mg/dL (7-18); CO2 25.9 mmol/L (21.0-32.0); CREATININE 1.39 mg/dL (0.70-1.30); Calcium 9.1 mg/dL (8.5-10.1); Chloride 100 mmol/L (98-107); Estimated GFR 49.95 (mL/min/1.73m2); Glucose 299 mg/dL (70-100); Magnesium 2.1 mg/dL (1.8-2.4); Sodium 135 mmol/L (136-145)
[2019-03-17] MEDS: Insulin Aspart 300 UNITS/3 ML PEN SC ×4 (08:18→21:59)
[2019-03-17 09:05] VITALS: O2SAT 95
[2019-03-17] MEDS: Normal Saline Flush 10 ML SYR IVP ×3 (09:06→16:11)
[2019-03-17] MEDS: Furosemide 20 MG/2 ML VIAL 40 MG IVP ×2 (09:07→16:10)
[2019-03-17 09:10] VITALS: BP 163/90; PULSE 62; RESP 17; TEMP 36.6; O2SAT 96
[2019-03-17] MEDS: methylPREDNISolone SUCC 125 MG VIAL 60 MG IVP ×3 (09:11→20:21)
[2019-03-17] MEDS: methylPREDNISolone 4 MG TAB 10 MG PO (09:14)
[2019-03-17] MEDS: Cholecalciferol (Vitamin D3) 1,000 UNIT TAB 2000 UNITS PO (09:16)
[2019-03-17] MEDS: FLUoxetine 10 MG TAB 30 MG PO (09:16)
[2019-03-17] MEDS: Calcium 600mg/Vit D 200U TAB 2 TAB PO (09:17)
[2019-03-17] MEDS: Tamsulosin 0.4 MG CAPCR PO (09:17)
[2019-03-17] MEDS: Amoxicillin 875/Clav. 125 TAB PO ×2 (09:17→20:21)
[2019-03-17] MEDS: Spironolactone 50 MG TAB PO (09:18)
[2019-03-17] MEDS: Docusate Sodium 100 MG CAP PO (09:18)
[2019-03-17] MEDS: Azithromycin 250 MG TAB 500 MG PO (09:19)
[2019-03-17] MEDS: Pantoprazole 40 MG TABCR PO ×2 (09:19→20:21)
[2019-03-17] MEDS: Acetaminophen 500 MG TAB PO ×2 (09:19→20:21)
[2019-03-17] MEDS: Lactobacillus Acidophilus CAP 1 CAP PO ×3 (09:19→20:21)
[2019-03-17] MEDS: Finasteride 5 MG TAB PO (09:20)
[2019-03-17] MEDS: buPROPion-XL 150 MG TABCR PO (09:20)
[2019-03-17] MEDS: Folic Acid 1 MG TAB PO (09:20)
[2019-03-17] MEDS: Calcitonin-Salmon, Synthetic 3.7 ML BTL NS (09:25)
[2019-03-17] MEDS: Fluticasone NASAL SPRAY 16 GM BTL NS (09:25)
[2019-03-17 13:37] VITALS: O2SAT 98
--- NOTE | 2019-03-17 14:46 | PT.INDS ---
Date of service: 03/17/19 Time of Service: 14:45 PT Notes Inpatient Physical Therapy Discharge Summary Dates: 03/17/2019 Dates of Service: 03/06/2019 through 03/15/2019 This is a clinical summary of care provided on the duration of dates listed above. No charge was made in the completion of this documentation. Referring Doctor: Kirill Mtz MD PT Orders: PT CONSULT: Non-urgent Precautions: Fall. Standard. Activity as tolerated. Patient Profile/Admitting Diagnosis: Patient is a 73-year-old male with past medical history significant for chronic vertigo as well as RA and Crohn's disease maintained on steroids and immunosuppressive therapy. Patient is diagnosed with Hypoxia, fever, acute kidney injury, weakness, and falls. PMHX: Medical History Adrenal insufficiency (Chronic) Benign prostatic hyperplasia (Acute 07/03/15) Coronary artery disease (Chronic) Crohns disease (Chronic) Diabetes mellitus, type II, insulin dependent (Acute) DVT (deep venous thrombosis) (Chronic) Erectile dysfunction of organic origin (Acute 07/03/15) GERD (gastroesophageal reflux disease) GI bleed (Chronic) Graves disease (Acute) Hyperlipidemia (Acute) Hypertension (Chronic) Hypothyroidism (Chronic) Obstructive sleep apnea (Chronic) Peripheral neuropathy (Chronic) Rheumatoid arthritis (Chronic) Sensorineural hearing loss, bilateral (Acute 01/28/15) Stroke (Chronic) 2018 Traumatic compression fracture of T12 thoracic vertebra (Acute) Vitamin B12 deficiency (Acute) Vitamin B6 deficiency (Acute) Vitamin D deficiency (Acute) Social History/Home Situation: Patient lives with his in a private home with no steps to enter his home. Patient has been non-ambulatory for several months now. His works during the day and patient is left alone at home. He has been on and off PT services for low back pain issues, falls, and imapired mobility. Equipment Owned/DME: Electric wheelchair, FWW, SC Subjective: NT is Objective: General Observation: NT Mental Status: NT Pain: NT ROM: Lower extremities: Grossly WFL bilaterally. Strength: Right Lower Extremity: Hip flexors 4-/5. Hip abductors 5/5. Knee extensors 4-/5. Ankle dorsiflexors 5/5. Ankle plantarflexors 5/5. Left Lower Extremity:Hip flexors 4/5. Hip abductors 5/5. Knee extensors 5/5. Ankle dorsiflexors 5/5. Ankle plantarflexors 5/5. Bed Mobility/Transfers: Rolling Independent Supine to sit Independent Sit to supine Independent Sit to stand Independent Stand to sit Independent Bed to chair Independent Chair to bed Independent Gait: Patient is able to tolerate up to 200' of level surface ambulation using his FWW requring 1 seated rest with increased LE pain at 1 L of oxygen per minute via NC. Balance: Static Sitting: Normal Dynamic Sitting:Normal Static Standing: Good Dynamic Standing: Fair Assessment: Patient is a 73-year-old male admitted with hypoxia, and PRISCILLA. He previously used an electric wheelchair for ambulation and had a fall recently during a transfer from his bed. Pateint demonstrated signifcant improvement in mobility ADL performance way beyond his pre-admission baseline of using the electric scooter for indoor mobility. He has achieved all the goals set for him at time of evaluation and did the same even with upgraded goals at time of progress note completion. He will continue to benefit from PT for home safety evaluation and functional maintenance program implementation. Patient continues to present with clinical signs and symptoms consistent with current/admitting diagnoses that have resulted to mobility limitations, gait instability, generalized weakness, and impairment of motor control as demonstrated by the following impairment level findings: 1. Impaired standing balance 2. Impaired activity tolerance Impairments cotninue to contribute to the following functional limitations: 1. Inability to safely ambulate without assistive device 2. Increase completion time for mobility ADL performance 3. Increased fall risk Goals: Goals X1 week 1. Supine-Sit independent MET 2. Sit-Supine independent MET 3. Sit-Stand independent MET 4. Stand-Sit independent MET 5. Independent with pivot transfer using a FWW MET 6. Independent with level surface ambulation of at least 300 feet using FWW with oxygen saturation of above 90% on 1L/min of oxygen without severe breathlessness PARTIALLY MET DISCHARGE RECOMMENDATIONS: Patient is recommended for discharge to home under the care of his . He will continue the use of his electric wheelchair. Home health PT/OT services are recommended to address equipment needs and perform a home safety assessment. TREATMENT CODE/TIME: NC Thank you very much for this referral. Nadia Mccormick PT, DPT, CLT [facility]
[2019-03-17 16:03] VITALS: BP 147/80; PULSE 94; RESP 18; TEMP 37.2; O2SAT 97
[2019-03-17] MEDS: amLODIPine 5 MG TAB PO (16:10)
--- NOTE | 2019-03-17 16:47 | PDOC.CMPRO ---
Care Management Progress Note S/O: Miguel was reading through the local paper and visiting with his . Stated that he was doing better today, didn't need oxygen and nurses told him his lungs sounded good. A: 73 y.o. male admitted for vertigo and falls remains at an acute level of care today. P: Miguel will return home when medically cleared for discharge. Discuss the possible need for HH PT based on his progress towards ambulation goals while here. , Nohemi, will transport by car.
[2019-03-17] MEDS: ROSUVASTATIN 20 MG TAB 40 MG PO (20:21)
--- NOTE | 2019-03-17 20:32 | PGE_ITS ---
Date of Service Date of service: 03/17/19 Time of Service: 20:32 Assessment and Plan Assessment and plan (1) Hypoxia: Status: Acute Assessment and plan: Evidence of hypoxia, fever, and pulmonary abnormalities by imaging with CT in immunosuppressed patient - Official read with diffuse ground-glass opacities initially, with differential including infection, hemorrhage, edema, or interstitial PNA by CT read. [place] [facility] Pulmonary on 03[place]06 who agreed that given fever AND immunosuppression, likely to be infectious, and agrees with broad-spectrum coverage. Patient was also initiated on coverage for PCP. - Consider bacterial infection - Improving with Pip-Jesus, macrolide for atypical coverage, changed to oral Augmentin, currently day #12 of antibiotic therapy. - Per discussion with pulm, imaging not consistent with Staph - Vancomycin d/c'd . MRSA swab negative as well. - No evidence of fungal infection. Would also consider viral infection. Rapid Flu negative. Consider viral panel pending patient's clinical status. - Following discussion with Dr. Reed and Hydropulper Operator [place] [facility] patient was also initiated on Bactrim for potential PJP coverage - bronchoscopy not recommended. - Also component of pulmonary edema and volume overload given CT findings and elevating BNP - benefiting from diuresis. - Aspergillus, strep Pneumo, Mycoplasma, and Legionella all negative. - Also on Humira, Sulfasalazine, and Leflunomide, with potential for infections as well as pulmonary processes such as ILD and Pulm toxicity - although patient was febrile. Will need pulm follow-up after hospitalization. - Role not clear for procalcitonin given immunocompromised state. Status appears improved. Continue to monitor. (2) Fever: Status: Resolved Assessment and plan: As above. Blood cultures negative. Urinalysis negative for infection. Afebrile since initiation of antibiotic therapy. (3) Diarrhea: Status: Acute Assessment and plan: Likely side-effect of antibiotic therapy, but will check for Fecal WBCs and C.Diff. (4) Weakness: Status: Acute Assessment and plan: Improving. Likely secondary to infection. Continue PT. (5) PRISCILLA (acute kidney injury): Status: Resolved Assessment and plan: In setting of illness and poor PO intake, likely pre- renal in etiology. Renal function improved with hydration. - ECHO reviewed from 2018 - Normal LV and RV function. Maintained on IVFs. - Creatinine stable and improved. (6) Hypertension: Status: Chronic Assessment and plan: Continue CCB, Spironolactone - continue to hold ARB. Monitor BP. (7) Hyperlipidemia: Status: Acute Assessment and plan: On statin therapy. (8) Diabetes mellitus, type II, insulin dependent: Status: Acute Assessment and plan: Will continue decreased QHS basal insulin only given prior hypoglycemic episodes. Continue to maintain on sliding scale, and continue ADA diet. After further discussion it appears that Mr. Padilla has some significant dietary indiscretion when at home, and has been maintained on an ADA diet here. Current blood sugars appear improved following alteration in basal insulin dosing. (9) Obstructive sleep apnea: Status: Chronic Assessment and plan: Noted. Continue CPAP. (10) Coronary artery disease: Status: Chronic Assessment and plan: Underlying CAD in the setting of chronic inflammatory processes with RA and Crohn's Disease. Reportedly with 5 prior OR's, s/p multiple stents (Documented 7 by review of cardiology notes). Appears asymptomatic currently. - Continue statin, prn NTG. Does not appear to be on daily ASA or BB. - Initially with tachycardia, with either sinus arrhythmia with PACs or multi- focal Atach in setting of hypoxia and pulmonary process. Initiated short acting Cardizem, discontinued in the setting of bradycardia. - Given Hgb <8 with concurrent CAD transfused X1 unit PRBCs on 03/07. (11) Crohns disease: Status: Chronic Assessment and plan: On Humira, Mesalamine. Patient also has a history of RA, maintained on Leflunomide as well. Currently all on hold. (12) Anemia: Status: Chronic Assessment and plan: Iron studies with Anemia of Chronic disease. Stool occult blood negative. Also with abnormal thyroid function as potential etiology for worsening values. - Given underlying CAD goal for Hgb >8, patient was transfused with a single unit of PRBCs on 03/07. Hgb stable and improving. (13) DVT (deep venous thrombosis): Status: Chronic Assessment and plan: Hx DVT on anticoagulation. Continue Coumadin, with daily INR. (14) Hypothyroidism: Status: Chronic Assessment and plan: Appears to be over-replaced, with slightly depressed TSH and mild elevation in FT4. Continue Levothyroxine but decrease dose. Also on Cytomel. (15) Seizure disorder: Status: Chronic Assessment and plan: Apparent manifestation with Transient speech deficits and Headache per review of neurology notes (16) DVT prophylaxis: Status: Acute Assessment and plan: Monitor daily INR - Coumadin restarted due to subther peutic levels. (17) Advance directive on file: Status: Acute Assessment and plan: Full Code. Subjective Subjective Interval history since last seen: 73-year-old man with past medical history significant for long-standing vertigo, as well as RA and Crohn's disease maintained chronically on immunosuppressive therapy, being admitted from [facility] Emergency Department on 03/05 with a diagnosis of weakness and falls. Mr. Padilla has a past medical history significant for RA and Crohn's disease maintained on daily steroids and immune suppressive therapy. He also has a significant cardiac history, with multiple MIs in the past with reported 7 stents, last 2 occurring in 2010 in [place]. His last stress test in 2018 showed a fixed defect. His other history includes DM, HTN, dyslipidemia, hypothyroidism, FRANCIE on CPAP therapy, ED status post penile implant, prior CVA, moderate AI, depression, hx DVT on AC with coumadin, and MGUS. He also has noted seizure disorder, manifested by headache and transient speech difficulties. He has a herniated disc in his lumbar region that was scheduled for potential intervention prior to his admission, not attended by the patient due to feeling ill. Mr. Padilla presented to the ED with complaints of vertigo type symptoms. The symptoms have been ongoing for some time, and evaluated in the past - in fact being deemed likely right-sided vestibulopathy with a positive [place]-Hallpike by Dr. Ethel Ya of neurology back in September of this year. He was also noted to have gait imbalance that was deemed multifactorial in the setting of vertigo, orthostatic hypotension, and significant neuropathy. However the patient reported that while his vertigo has been constant, he had suffered a fall on the day prior to his admission. His in fact reports that he has been falling quite a bit at home recently. Evaluation in the ED was noteworthy for mild PRISCILLA with a creatinine of 1.77, mildly depressed TSH with mildly elevated FT4, and a Urinalysis that while high in specific gravity was negative for any signs of infection or pyuria. BNP was also checked and relatively unremarkable at 615 (patient's prior values have been as high as 7000). Chest x-ray showed no acute pulmonary process. ECG was initially reported by the ED as AFib, but upon closer inspection noted to be either a Multifocal Tachycardia or a sinus arrhythmia with potential PACs. Patient was admitted for further evaluation and treatment of his ongoing weakness, with recent frequent falls. Shortly following admission Mr. Padilla was noted to be slightly hypoxic and spiked a fever. Subsequent ABG showed evidence of hypoxia, with a PaO2 of 55. CT of the chest was obtained and showed ground glass opacities. The patient himself denied any subjective SOB or pulmonary symptoms, but had an obvious cough at time of exam. He also denied subjective fevers at home. Broad-spectrum antibiotics were initiated, and Mr. Padilla has remained afebrile since - however, his oxygen demand increased prompting repeat imaging, with CXR showing interval worsening of RUL infiltrate (repeat 2 days later unchanged), with subsequent CT showing improvement of ground-glass opacities but with increasing interstitial changes. These findings in addition to a BNP that increased from 615 to 5403 indicated likely volume overload, and Mr. Padilla was initiated on diuretic therapy. His weight today is lower than his baseline, and creatinine has bumped slightly. He feels well from a respiratory standpoint, and is now off supplemental oxygen. No overnight events reported. Remains afebrile. Exam Narrative Exam Narrative: General: Patient appears comfortable, AAOX3, NAD Neck: Supple CV: Regular, nontachycardic, S1S2, No rubs, murmurs, or gallops. Pulmonary: minimal bibasilar crackles improved, otherwise clear with good air entry and no wheezing. Abdomen: + Bowel Sounds, soft, nontender, nondistended Vascular: Mild lower extremity edema Psych: Normal mood and affect. Objective Objective Clinical Data: Abnormal lab results 03/16/19 03/17/19 03/17/19 Range/Units 10:15 06:45 06:45 RBC (4.50-6.00) m/cumm Hgb (13.5-17.5) g/dL Hct (40.0-50.0) % MCV (80-95) fL RDW (11.8-14.1) % Absolute Lymphocytes (1.2-3.4) k/cumm PT 19.8 H D (9.3-11.0) sec INR 2.0 H D (0.9-1.1) Sodium 135 L (136-145) mmol/L BUN 39 H (7-18) mg/dL Creatinine 1.39 H (0.70-1.30) mg/dL Glucose 613 H* D 299 H D (70-100) mg/dL 03/17/19 Range/Units 06:45 RBC 3.25 L (4.50-6.00) m/cumm Hgb 10.0 L (13.5-17.5) g/dL Hct 31.1 L (40.0-50.0) % MCV 95.7 H (80-95) fL RDW 16.4 H (11.8-14.1) % Absolute Lymphocytes 1.01 L (1.2-3.4) k/cumm PT (9.3-11.0) sec INR (0.9-1.1) Sodium (136-145) mmol/L BUN (7-18) mg/dL Creatinine (0.70-1.30) mg/dL Glucose (70-100) mg/dL Vital Signs Temperature 37.2 C 03/17/19 16:03 Temperature Source Tympanic 03/17/19 16:03 Pulse 94 H 03/17/19 16:03 Pulse Rhythm Irregular 03/17/19 15:24 Pulse 101 H 03/05/19 15:40 Respiratory Rate 18 03/17/19 16:03 Respiratory Effort Non-Labored 03/17/19 15:24 Respiratory Depth Normal 03/17/19 15:24 Respiratory Pattern Normal 03/17/19 15:24 Blood Pressure 147/80 H 03/17/19 16:03 Blood Pressure Mean 76 03/05/19 15:31 Blood Pressure Position Sitting 03/05/19 10:19 Pulse Oximetry 97 03/17/19 16:03 Oxygen Delivery Method Room Air 03/17/19 16:03 Oxygen Flow Rate 0 03/17/19 16:03 Fraction of Inspired Oxygen (FIO2) 2 03/13/19 19:30 Pain Level 0 03/17/19 16:03 Comment 03/17/19 09:10 Intake & Output 03/16/19 03/17/19 03/17/19 23:59 11:59 23:59 Intake Total 970 / 1370 785 / 1145 360 / 1145 Output Total 1200 / 1200 725 / 725 Balance -230 / 170 60 / 420 360 / 420 Weight 92.9 kg Intake: IV Oral 960 / 1350 760 / 1120 360 / 1120 Output: Urine 1200 / 1200 725 / 725 Other: Urine Color Yellow Yellow Yellow Urine Appearance Clear Clear Clear Urine Odor None Normal Comment voided in toilet. Volume not measured. Stool Occult Blood Negative Negative Stool Size Large Copious Stool Characteristics Formed Soft Soft Brown Formed Brown Brown Voiding Methods Urinal Urinal Laboratory Results WBC 8.08 k/cumm (4.4-10.8) 03/17/19 06:45 RBC 3.25 m/cumm (4.50-6.00) L 03/17/19 06:45 Hgb 10.0 g/dL (13.5-17.5) L 03/17/19 06:45 Hct 31.1 % (40.0-50.0) L 03/17/19 06:45 MCV 95.7 fL (80-95) H 03/17/19 06:45 MCH 30.8 pg (27.0-33.0) 03/17/19 06:45 MCHC 32.2 g/dL (32.0-36.0) 03/17/19 06:45 RDW 16.4 % (11.8-14.1) H 03/17/19 06:45 Plt Count 313 x1000/uL (130-400) 03/17/19 06:45 MPV 10.0 fL (8.0-11.0) 03/17/19 06:45 Immature Gran % 0.5 03/17/19 06:45 Neutrophils % 80.8 03/17/19 06:45 Lymphocytes % 12.5 03/17/19 06:45 Monocytes % 6.1 03/17/19 06:45 Eosinophils % 0.0 03/17/19 06:45 Basophils % 0.1 03/17/19 06:45 Absolute Neutrophils 6.53 k/cumm (1.2-6.7) 03/17/19 06:45 Absolute Lymphocytes 1.01 k/cumm (1.2-3.4) L 03/17/19 06:45 Absolute Monocytes 0.49 k/cumm (0.11-0.7) 03/17/19 06:45 Absolute Eosinophils 0.00 k/cumm (0.0-0.7) 03/17/19 06:45 Absolute Basophils 0.01 k/cumm (0.0-0.2) 03/17/19 06:45 Differential Comment Rbc morph reviewed 03/16/19 07:10 RBC Morphology See below 03/16/19 07:10 Polychromasia Present 03/16/19 07:10 Anisocytosis 1+ 03/16/19 07:10 Macrocytosis 1+ 03/16/19 07:10 PT 19.8 sec (9.3-11.0) H D 03/17/19 06:45 INR 2.0 (0.9-1.1) H D 03/17/19 06:45 APTT 89.0 sec (21.0-31.4) H* D 03/06/19 12:55 D-Dimer 1750 ng/mlFEU (<500) H 03/05/19 10:30 Sample Site Right radial 03/05/19 16:55 pCO2 27 mmHg (34-47) L 03/05/19 16:55 pO2 55 mmHg (83-108) L 03/05/19 16:55 O2 Saturation 88 % (94-98) L 03/05/19 16:55 ABG pH 7.48 (7.35-7.45) H 03/05/19 16:55 ABG HCO3 20 mmol/L (22-28) L 03/05/19 16:55 ABG Total CO2 19 mmol/L (22-29) L 03/05/19 16:55 ABG Base Excess -3.5 mmol/L (-3-3) L 03/05/19 16:55 FiO2 R/a % 03/05/19 16:55 Sodium 135 mmol/L (136-145) L 03/17/19 06:45 Potassium 4.0 mmol/L (3.5-5.1) 03/17/19 06:45 Chloride 100 mmol/L (98-107) 03/17/19 06:45 Carbon Dioxide 25.9 mmol/L (21.0-32.0) 03/17/19 06:45 Anion Gap 9.1 mmol/L (3-11) 03/17/19 06:45 BUN 39 mg/dL (7-18) H 03/17/19 06:45 Creatinine 1.39 mg/dL (0.70-1.30) H 03/17/19 06:45 Estimated GFR/1.73 m2 49.95 (mL/min/1.73m2) 03/17/19 06:45 Glucose 299 mg/dL (70-100) H D 03/17/19 06:45 Lactate 1.2 mmol/L (0.6-1.4) 03/07/19 07:57 Calcium 9.1 mg/dL (8.5-10.1) 03/17/19 06:45 Magnesium 2.1 mg/dL (1.8-2.4) 03/17/19 06:45 Iron 54 ug/dL (50-175) 03/06/19 06:37 TIBC 147 ug/dL (250-450) L 03/06/19 06:37 Transferrin % Sat 37 % (20-55) 03/06/19 06:37 Ferritin > 1000 ng/mL (8-388) H 03/06/19 06:37 Total Bilirubin 0.7 mg/dL (0.2-1.0) 03/05/19 10:30 AST 33 U/L (15-37) 03/05/19 10:30 ALT 37 U/L (16-63) 03/05/19 10:30 Alkaline Phosphatase 78 U/L (46-116) 03/05/19 10:30 Lactate Dehydrogenase 413 U/L (85-227) H 03/12/19 07:15 Troponin I < 0.05 ng/mL (0.00-0.06) 03/06/19 06:37 NT-Pro-B Natriuret Pep 5403 pg/mL (-299) H 03/12/19 07:15 Total Protein 8.1 g/dL (6.4-8.2) 03/05/19 10:30 Albumin 2.7 g/dL (3.4-5.0) L 03/05/19 10:30 Vitamin B12 1113 pg/mL (193-986) H 03/06/19 06:37 Folate > 20.0 ng/mL (8.6-20.0) H 03/06/19 06:37 TSH 0.35 uIU/mL (0.36-3.74) L 03/05/19 10:30 Free T4 1.50 ng/dL (0.76-1.46) H 03/05/19 10:30 Urine Color Yellow (Yellow) 03/05/19 12:20 Urine Clarity Clear (Clear) 03/05/19 12:20 Urine pH 5.5 (5-8) 03/05/19 12:20 Ur Specific [place] >= 1.030 (1.005-1.025) H 03/05/19 12:20 Urine Protein Trace mg/dL (Negative) H 03/05/19 12:20 Urine Ketones Negative mg/dL (Negative) 03/05/19 12:20 Urine Blood Negative (Negative) 03/05/19 12:20 Urine Nitrite Negative (Negative) 03/05/19 12:20 Urine Bilirubin Small (Negative) H 03/05/19 12:20 Urine Urobilinogen 0.2 EU/dL (Up TO 0.2) 03/05/19 12:20 Ur Leukocyte Esterase Negative (Negative) 03/05/19 12:20 Urine RBC Negative (0-2) 03/05/19 12:20 Urine WBC 0-2 HPF (0-5) 03/05/19 12:20 Ur Epithelial Cells Few HPF (Negative) 03/05/19 12:20 Urine Crystals Negative HPF (Negative) 03/05/19 12:20 Urine Bacteria Negative HPF (Negative) 03/05/19 12:20 Urine Casts 0-2 hyaline LPF (Negative) 03/05/19 12:20 Urine Mucus Negative (Negative) 03/05/19 12:20 Ur Culture Indicated? No 03/05/19 12:20 Urine Glucose 500 mg/dL (Negative) H 03/05/19 12:20 Legionella Source (see note) 03/06/19 00:32 Legionella Reprt Status (see note) 03/06/19 00:32 Legionella Final Result (see note) 03/06/19 00:32 M. pneumoniae Source Nasal 03/06/19 02:00 M. pneumoniae (PCR) Negative 03/06/19 02:00 Aspergillus Ag (EIA) <0.500 index (<0.5) 03/12/19 07:15 Ur Strep pneumoniae Ag Negative (Negative) 03/06/19 00:32 Patient ABO/Rh A Positive 03/07/19 07:57 Antibody Screen Negative 03/07/19 07:57 Crossmatch See Detail 03/07/19 07:57
[2019-03-18 05:10] VITALS: BP 125/66; PULSE 70; RESP 18; TEMP 36.3; O2SAT 95
[2019-03-18] MEDS: Levothyroxine 150 MCG TAB PO (06:11)
[2019-03-18] MEDS: Sulfameth/Trimeth DS TAB 1 TAB PO ×2 (06:11→20:47)
[2019-03-18] MEDS: Liothyronine 5 MCG TAB PO (06:11)
[2019-03-18 07:36] LABS: Abs Immature Grans 0.03 k/cumm (0.0-0.09); Absolute Lymphocyte Count 0.95 k/cumm (1.2-3.4); Absolute Monocyte Count 0.42 k/cumm (0.11-0.7); Absolute Neutrophil Count 6.84 k/cumm (1.2-6.7); HCT 33.5 % (40.0-50.0); HGB 10.7 g/dL (13.5-17.5); Immature Grans % 0.4; Lymphocytes % 11.5; Mean Corp. HGB Concentration 31.9 g/dL (32.0-36.0); Mean Corpuscular Hemoglobin 30.7 pg (27.0-33.0); Mean Corpuscular Volume 96.3 fL (80-95); Mean Platelet Volume 10.4 fL (8.0-11.0); Monocytes % 5.1; Platelet Count 324 x1000/uL (130-400); RBC 3.48 m/cumm (4.50-6.00); RBC Distribution Width 16.9 % (11.8-14.1); White Blood Cell Count 8.24 k/cumm (4.4-10.8)
[2019-03-18 07:43] LABS: INR 1.4 (0.9-1.1); Prothrombin Time 14.2 sec (9.3-11.0)
[2019-03-18 07:51] LABS: Anion Gap 7.8 mmol/L (3-11); BUN 44 mg/dL (7-18); CO2 28.2 mmol/L (21.0-32.0); CREATININE 1.47 mg/dL (0.70-1.30); Calcium 9.4 mg/dL (8.5-10.1); Chloride 102 mmol/L (98-107); Estimated GFR 46.83 (mL/min/1.73m2); Glucose 193 mg/dL (70-100); Magnesium 2.2 mg/dL (1.8-2.4); Potassium 4.1 mmol/L (3.5-5.1); Sodium 138 mmol/L (136-145)
[2019-03-18 08:40] VITALS: BP 154/87; PULSE 71; RESP 18; TEMP 36.7; O2SAT 93
[2019-03-18] MEDS: methylPREDNISolone SUCC 125 MG VIAL 60 MG IVP ×2 (09:07→13:54)
[2019-03-18] MEDS: Calcitonin-Salmon, Synthetic 3.7 ML BTL NS (09:09)
[2019-03-18] MEDS: Furosemide 20 MG/2 ML VIAL 40 MG IVP (09:09)
[2019-03-18] MEDS: Insulin Aspart 300 UNITS/3 ML PEN SC ×4 (09:10→21:45)
[2019-03-18] MEDS: Finasteride 5 MG TAB PO (09:12)
[2019-03-18] MEDS: Folic Acid 1 MG TAB PO (09:12)
[2019-03-18] MEDS: Calcium 600mg/Vit D 200U TAB 2 TAB PO (09:12)
[2019-03-18] MEDS: Acetaminophen 500 MG TAB PO ×2 (09:12→20:47)
[2019-03-18] MEDS: Docusate Sodium 100 MG CAP PO (09:12)
[2019-03-18] MEDS: Spironolactone 50 MG TAB PO (09:13)
[2019-03-18] MEDS: Pantoprazole 40 MG TABCR PO ×2 (09:13→20:47)
[2019-03-18] MEDS: Lactobacillus Acidophilus CAP 1 CAP PO ×3 (09:13→20:47)
[2019-03-18] MEDS: Azithromycin 250 MG TAB 500 MG PO (09:13)
[2019-03-18] MEDS: Amoxicillin 875/Clav. 125 TAB PO ×2 (09:14→20:47)
[2019-03-18] MEDS: buPROPion-XL 150 MG TABCR PO (09:14)
[2019-03-18] MEDS: Tamsulosin 0.4 MG CAPCR PO (09:14)
[2019-03-18] MEDS: FLUoxetine 10 MG TAB 30 MG PO (09:14)
[2019-03-18] MEDS: Cholecalciferol (Vitamin D3) 1,000 UNIT TAB 2000 UNITS PO (09:14)
[2019-03-18] MEDS: methylPREDNISolone 4 MG TAB 10 MG PO (09:14)
[2019-03-18] MEDS: Normal Saline Flush 10 ML SYR IVP ×3 (09:20→20:46)
[2019-03-18] MEDS: oxyCODONE 5 MG TAB PO (13:54)
[2019-03-18 15:35] VITALS: BP 129/79; PULSE 96; RESP 16; TEMP 36.1; O2SAT 94
[2019-03-18] MEDS: amLODIPine 5 MG TAB PO (17:22)
--- NOTE | 2019-03-18 18:25 | PGE_ITS ---
Date of Service Date of service: 03/18/19 Time of Service: 18:25 Assessment and Plan Assessment and plan (1) Hypoxia: Status: Acute Assessment and plan: Evidence of hypoxia, fever, and pulmonary abnormalities by imaging with CT in immunosuppressed patient - Official read with diffuse ground-glass opacities initially, with differential including infection, hemorrhage, edema, or interstitial PNA by CT read. Images were pushed to [facility] and reviewed with Pulmonary on 03/06 who agreed that given fever AND immunosuppression, likely to be infectious, and agrees with broad-spectrum coverage. Patient was also initiated on coverage for PCP. - Consider bacterial infection - Improving with Pip-Jesus, macrolide for atypical coverage, changed to oral Augmentin, currently day #12 of antibiotic therapy. - Per discussion with pulm, imaging not consistent with Staph - Vancomycin d/c'd . MRSA swab negative as well. - No evidence of fungal infection. Would also consider viral infection. Rapid Flu negative. Consider viral panel pending patient's clinical status. - Following discussion with Dr. Reed and Spool Cleaner Hand at [facility], patient was also initiated on Bactrim for potential PJP coverage - bronchoscopy not recommended. - Also component of pulmonary edema and volume overload given CT findings and elevating BNP - benefiting from diuresis. - Aspergillus, strep Pneumo, Mycoplasma, and Legionella all negative. - Also on Humira, Sulfasalazine, and Leflunomide, with potential for infections as well as pulmonary processes such as ILD and Pulm toxicity - although patient was febrile. Will need pulm follow-up after hospitalization. - Role not clear for procalcitonin given immunocompromised state. - Patient had been maintained on Bactrim for potential PJP given immunosuppress ed state and mild elevation in LDH. However, Bactrim was significantly underdosed and not therapeutic, and likely without role in patient's improvement. Will discuss again with ID and pulmonology prior to discontinuation. Status appears improved. Continue to monitor. (2) Fever: Status: Resolved Assessment and plan: As above. Blood cultures negative. Urinalysis negative for infection. Afebrile since initiation of antibiotic therapy. (3) Diarrhea: Status: Acute Assessment and plan: Likely side-effect of antibiotic therapy. Prior Fecal Leukocytes and C.diff negative. Appears improved. (4) Weakness: Status: Acute Assessment and plan: Improving. Likely secondary to infection. Continue PT. (5) PRISCILLA (acute kidney injury): Status: Resolved Assessment and plan: In setting of illness and poor PO intake, likely pre- renal in etiology. Renal function mildly worse with diuresis - now discontinued. Continue to monitor creatinine. (6) Hypertension: Status: Chronic Assessment and plan: Continue CCB, Spironolactone - continue to hold ARB. Monitor BP. (7) Hyperlipidemia: Status: Acute Assessment and plan: On statin therapy. (8) Diabetes mellitus, type II, insulin dependent: Status: Acute Assessment and plan: Will continue decreased QHS basal insulin only given prior hypoglycemic episodes. Continue to maintain on sliding scale, and continue ADA diet. After further discussion it appears that Mr. Padilla has some significant dietary indiscretion when at home, and has been maintained on an ADA diet here. Current blood sugars appear improved following alteration in basal insulin dosing - now elevated due to high doses of steroids, being weaned currently. (9) Obstructive sleep apnea: Status: Chronic Assessment and plan: Noted. Continue CPAP. (10) Coronary artery disease: Status: Chronic Assessment and plan: Underlying CAD in the setting of chronic inflammatory processes with RA and Crohn's Disease. Reportedly with 5 prior AL's, s/p multiple stents (Documented 7 by review of cardiology notes). Appears asympt omatic currently. - Continue statin, prn NTG. Does not appear to be on daily ASA or BB. - Initially with tachycardia, with either sinus arrhythmia with PACs or multi- focal Atach in setting of hypoxia and pulmonary process. Initiated short acting Cardizem, discontinued in the setting of bradycardia. - Given Hgb <8 with concurrent CAD transfused X1 unit PRBCs on 03/07. (11) Crohns disease: Status: Chronic Assessment and plan: On Humira, Mesalamine. Patient also has a history of RA, maintained on Leflunomide as well. Currently all on hold. (12) Anemia: Status: Chronic Assessment and plan: Iron studies with Anemia of Chronic disease. Stool occult blood negative. Also with abnormal thyroid function as potential etiology for worsening values. - Given underlying CAD goal for Hgb >8, patient was transfused with a single unit of PRBCs on 03/07. Hgb stable and improving. (13) Hypothyroidism: Status: Chronic Assessment and plan: Appears to be over-replaced, with slightly depressed TSH and mild elevation in FT4. Continue Levothyroxine but decrease dose. Also on Cytomel. (14) Seizure disorder: Status: Chronic Assessment and plan: Apparent manifestation with Transient speech deficits and Headache per review of neurology notes (15) DVT (deep venous thrombosis): Status: Chronic Assessment and plan: Hx DVT on anticoagulation. Continue Coumadin, with daily INR. (16) DVT prophylaxis: Status: Acute Assessment and plan: Monitor daily INR - Coumadin restarted due to subtherpeutic levels, with additional dose today. (17) Advance directive on file: Status: Acute Assessment and plan: Full Code. Subjective Subjective Interval history since last seen: 73-year-old man with past medical history significant for long-standing vertigo, as well as RA and Crohn's disease maintained chronically on immunosuppressive therapy, being admitted from [facility] Emergency Department on 03/05 with a diagnosis of weakness and falls. Mr. Padilla has a past medical history significant for RA and Crohn's disease maintained on daily steroids and immune suppressive therapy. He also has a significant cardiac history, with multiple MIs in the past with reported 7 stents, last 2 occurring in 2010 in [place]. His last stress test in 2018 showed a fixed defect. His other history includes DM, HTN, dyslipidemia, hypothyroidism, FRANCIE on CPAP therapy, ED status post penile implant, prior CVA, moderate AI, depression, hx DVT on AC with coumadin, and MGUS. He also has noted seizure disorder, manifested by headache and transient speech difficulties. He has a herniated disc in his lumbar region that was scheduled for potential intervention prior to his admission, not attended by the patient due to feeling ill. Mr. Padilla presented to the ED with complaints of vertigo type symptoms. The symptoms have been ongoing for some time, and evaluated in the past - in fact being deemed likely right-sided vestibulopathy with a positive [place]-Hallpike by Dr. Ethel Ya of neurology back in September of this year. He was also noted to have gait imbalance that was deemed multifactorial in the setting of vertigo, orthostatic hypotension, and significant neuropathy. However the patient reported that while his vertigo has been constant, he had suffered a fall on the day prior to his admission. His in fact reports that he has been falling quite a bit at home recently. Evaluation in the ED was noteworthy for mild PRISCILLA with a creatinine of 1.77, mildly depressed TSH with mildly elevated FT4, and a Urinalysis that while high in specific gravity was negative for any signs of infection or pyuria. BNP was also checked and relatively unremarkable at 615 (patient's prior values have been as high as 7000). Chest x-ray showed no acute pulmonary process. ECG was initially reported by the ED as AFib, but upon closer inspection noted to be either a Multifocal Tachycardia or a sinus arrhythmia with potential PACs. Patient was admitted for further evaluation and treatment of his ongoing weakness, with recent frequent falls. Shortly following admission Mr. Padilla was noted to be slightly hypoxic and spiked a fever. Subsequent ABG showed evidence of hypoxia, and CT of the chest was obtained and showed ground glass opacities. Broad-spectrum antibiotics were initiated, and Mr. Padilla has remained afebrile since - however, his oxygen demand increased prompting repeat imaging, with CXR showing interval worsening of RUL infiltrate (repeat 2 days later unchanged), with subsequent CT showing improvement of ground-glass opacities but with increasing interstitial changes. These findings in addition to a BNP that increased from 615 to 5403 lead to a diagnosis of likely volume overload, and Mr. Padilla was initiated on diuretic therapy. However, he was also empirically initiated on therapy for PJP by other hospitalist, but at subtherapeutic doses. He feels well from a respiratory standpoint, and is remains off supplemental oxygen. No overnight events reported. Remains afebrile. Exam Narrative Exam Narrative: General: Patient appears comfortable, AAOX3, NAD Neck: Supple CV: Regular, nontachycardic, S1S2, No rubs, murmurs, or gallops. Pulmonary: minimal bibasilar crackles improved, otherwise clear with good air entry and no wheezing. Abdomen: + Bowel Sounds, soft, nontender, nondistended Vascular: Mild lower extremity edema Psych: Normal mood and affect. Objective Objective Clinical Data: Abnormal lab results 03/18/19 03/18/19 03/18/19 Range/Units 06:58 06:58 06:58 RBC 3.48 L (4.50-6.00) m/cumm Hgb 10.7 L (13.5-17.5) g/dL Hct 33.5 L (40.0-50.0) % MCV 96.3 H (80-95) fL MCHC 31.9 L (32.0-36.0) g/dL RDW 16.9 H (11.8-14.1) % Absolute Neutrophils 6.84 H (1.2-6.7) k/cumm Absolute Lymphocytes 0.95 L (1.2-3.4) k/cumm PT 14.2 H D (9.3-11.0) sec INR 1.4 H D (0.9-1.1) BUN 44 H (7-18) mg/dL Creatinine 1.47 H (0.70-1.30) mg/dL Glucose 193 H D (70-100) mg/dL Vital Signs Temperature 36.1 C L 03/18/19 15:35 Temperature Source Tympanic 03/18/19 15:35 Pulse 96 H 03/18/19 15:35 Pulse Rhythm Regular 03/18/19 17:43 Pulse 101 H 03/05/19 15:40 Respiratory Rate 16 03/18/19 15:35 Respiratory Effort Non-Labored 03/18/19 17:43 Respiratory Depth Normal 03/18/19 17:43 Respiratory Pattern Normal 03/18/19 17:43 Blood Pressure 129/79 03/18/19 15:35 Blood Pressure Mean 76 03/05/19 15:31 Blood Pressure Position Sitting 03/05/19 10:19 Pulse Oximetry 94 L 03/18/19 15:35 Oxygen Delivery Method Room Air 03/18/19 15:35 Oxygen Flow Rate 0 03/18/19 15:35 Fraction of Inspired Oxygen (FIO2) 2 03/13/19 19:30 Pain Level 7 03/18/19 13:54 Comment 03/17/19 09:10 Intake & Output 03/17/19 03/18/19 03/18/19 23:59 11:59 23:59 Intake Total 360 / 1145 25 / 745 720 / 745 Output Total 750 / 890 140 / 890 Balance 360 / 420 -725 / -145 580 / -145 Weight 88.6 kg Intake: IV Oral 360 / 1120 720 / 720 Output: Urine 750 / 890 140 / 890 Other: Urine Color Yellow Yellow Pale Yellow Urine Appearance Clear Clear Clear Urine Odor None Comment voided in toilet. Volume not measured. Stool Occult Blood Negative Stool Size Small Stool Characteristics Soft Liquid Brown Voiding Methods Urinal Urinal Laboratory Results WBC 8.24 k/cumm (4.4-10.8) 03/18/19 06:58 RBC 3.48 m/cumm (4.50-6.00) L 03/18/19 06:58 Hgb 10.7 g/dL (13.5-17.5) L 03/18/19 06:58 Hct 33.5 % (40.0-50.0) L 03/18/19 06:58 MCV 96.3 fL (80-95) H 03/18/19 06:58 MCH 30.7 pg (27.0-33.0) 03/18/19 06:58 MCHC 31.9 g/dL (32.0-36.0) L 03/18/19 06:58 RDW 16.9 % (11.8-14.1) H 03/18/19 06:58 Plt Count 324 x1000/uL (130-400) 03/18/19 06:58 MPV 10.4 fL (8.0-11.0) 03/18/19 06:58 Immature Gran % 0.4 03/18/19 06:58 Neutrophils % 83.0 03/18/19 06:58 Lymphocytes % 11.5 03/18/19 06:58 Monocytes % 5.1 03/18/19 06:58 Eosinophils % 0.0 03/18/19 06:58 Basophils % 0.0 03/18/19 06:58 Absolute Neutrophils 6.84 k/cumm (1.2-6.7) H 03/18/19 06:58 Absolute Lymphocytes 0.95 k/cumm (1.2-3.4) L 03/18/19 06:58 Absolute Monocytes 0.42 k/cumm (0.11-0.7) 03/18/19 06:58 Absolute Eosinophils 0.00 k/cumm (0.0-0.7) 03/18/19 06:58 Absolute Basophils 0.00 k/cumm (0.0-0.2) 03/18/19 06:58 Differential Comment Rbc morph reviewed 03/16/19 07:10 RBC Morphology See below 03/16/19 07:10 Polychromasia Present 03/16/19 07:10 Anisocytosis 1+ 03/16/19 07:10 Macrocytosis 1+ 03/16/19 07:10 PT 14.2 sec (9.3-11.0) H D 03/18/19 06:58 INR 1.4 (0.9-1.1) H D 03/18/19 06:58 APTT 89.0 sec (21.0-31.4) H* D 03/06/19 12:55 D-Dimer 1750 ng/mlFEU (<500) H 03/05/19 10:30 Sample Site Right radial 03/05/19 16:55 pCO2 27 mmHg (34-47) L 03/05/19 16:55 pO2 55 mmHg (83-108) L 03/05/19 16:55 O2 Saturation 88 % (94-98) L 03/05/19 16:55 ABG pH 7.48 (7.35-7.45) H 03/05/19 16:55 ABG HCO3 20 mmol/L (22-28) L 03/05/19 16:55 ABG Total CO2 19 mmol/L (22-29) L 03/05/19 16:55 ABG Base Excess -3.5 mmol/L (-3-3) L 03/05/19 16:55 FiO2 R/a % 03/05/19 16:55 Sodium 138 mmol/L (136-145) 03/18/19 06:58 Potassium 4.1 mmol/L (3.5-5.1) 03/18/19 06:58 Chloride 102 mmol/L (98-107) 03/18/19 06:58 Carbon Dioxide 28.2 mmol/L (21.0-32.0) 03/18/19 06:58 Anion Gap 7.8 mmol/L (3-11) 03/18/19 06:58 BUN 44 mg/dL (7-18) H 03/18/19 06:58 Creatinine 1.47 mg/dL (0.70-1.30) H 03/18/19 06:58 Estimated GFR/1.73 m2 46.83 (mL/min/1.73m2) 03/18/19 06:58 Glucose 193 mg/dL (70-100) H D 03/18/19 06:58 Lactate 1.2 mmol/L (0.6-1.4) 03/07/19 07:57 Calcium 9.4 mg/dL (8.5-10.1) 03/18/19 06:58 Magnesium 2.2 mg/dL (1.8-2.4) 03/18/19 06:58 Iron 54 ug/dL (50-175) 03/06/19 06:37 TIBC 147 ug/dL (250-450) L 03/06/19 06:37 Transferrin % Sat 37 % (20-55) 03/06/19 06:37 Ferritin > 1000 ng/mL (8-388) H 03/06/19 06:37 Total Bilirubin 0.7 mg/dL (0.2-1.0) 03/05/19 10:30 AST 33 U/L (15-37) 03/05/19 10:30 ALT 37 U/L (16-63) 03/05/19 10:30 Alkaline Phosphatase 78 U/L (46-116) 03/05/19 10:30 Lactate Dehydrogenase 413 U/L (85-227) H 03/12/19 07:15 Troponin I < 0.05 ng/mL (0.00-0.06) 03/06/19 06:37 NT-Pro-B Natriuret Pep 5403 pg/mL (-299) H 03/12/19 07:15 Total Protein 8.1 g/dL (6.4-8.2) 03/05/19 10:30 Albumin 2.7 g/dL (3.4-5.0) L 03/05/19 10:30 Vitamin B12 1113 pg/mL (193-986) H 03/06/19 06:37 Folate > 20.0 ng/mL (8.6-20.0) H 03/06/19 06:37 TSH 0.35 uIU/mL (0.36-3.74) L 03/05/19 10:30 Free T4 1.50 ng/dL (0.76-1.46) H 03/05/19 10:30 Urine Color Yellow (Yellow) 03/05/19 12:20 Urine Clarity Clear (Clear) 03/05/19 12:20 Urine pH 5.5 (5-8) 03/05/19 12:20 Ur Specific [place] >= 1.030 (1.005-1.025) H 03/05/19 12:20 Urine Protein Trace mg/dL (Negative) H 03/05/19 12:20 Urine Ketones Negative mg/dL (Negative) 03/05/19 12:20 Urine Blood Negative (Negative) 03/05/19 12:20 Urine Nitrite Negative (Negative) 03/05/19 12:20 Urine Bilirubin Small (Negative) H 03/05/19 12:20 Urine Urobilinogen 0.2 EU/dL (Up TO 0.2) 03/05/19 12:20 Ur Leukocyte Esterase Negative (Negative) 03/05/19 12:20 Urine RBC Negative (0-2) 03/05/19 12:20 Urine WBC 0-2 HPF (0-5) 03/05/19 12:20 Ur Epithelial Cells Few HPF (Negative) 03/05/19 12:20 Urine Crystals Negative HPF (Negative) 03/05/19 12:20 Urine Bacteria Negative HPF (Negative) 03/05/19 12:20 Urine Casts 0-2 hyaline LPF (Negative) 03/05/19 12:20 Urine Mucus Negative (Negative) 03/05/19 12:20 Ur Culture Indicated? No 03/05/19 12:20 Urine Glucose 500 mg/dL (Negative) H 03/05/19 12:20 Legionella Source (see note) 03/06/19 00:32 Legionella Reprt Status (see note) 03/06/19 00:32 Legionella Final Result (see note) 03/06/19 00:32 M. pneumoniae Source Nasal 03/06/19 02:00 M. pneumoniae (PCR) Negative 03/06/19 02:00 Aspergillus Ag (EIA) <0.500 index (<0.5) 03/12/19 07:15 Ur Strep pneumoniae Ag Negative (Negative) 03/06/19 00:32 Patient ABO/Rh A Positive 03/07/19 07:57 Antibody Screen Negative 03/07/19 07:57 Crossmatch See Detail 03/07/19 07:57
--- NOTE | 2019-03-18 19:29 | PDOC.CMPRO ---
Care Management Progress Note S/O: Miguel was upin his chair watching TV. Hopes he is getting closer to being able to go home. A: 73 y.o. male admitted for vertigo and falls remains at an acute level of care today. P: Miguel will return home when medically cleared for discharge. Discuss the possible need for HH PT based on his progress towards ambulation goals while here. , Nohemi, will transport by car.
[2019-03-18] MEDS: methylPREDNISolone SUCC 125 MG VIAL 40 MG IVP (20:46)
[2019-03-18] MEDS: ROSUVASTATIN 20 MG TAB 40 MG PO (20:48)
[2019-03-18] MEDS: Fluticasone NASAL SPRAY 16 GM BTL NS (20:50)
[2019-03-19 00:05] VITALS: BP 150/63; PULSE 53; RESP 18; TEMP 36.1; O2SAT 96
[2019-03-19] MEDS: Sulfameth/Trimeth DS TAB 1 TAB PO (05:55)
[2019-03-19] MEDS: Levothyroxine 150 MCG TAB PO (05:55)
[2019-03-19] MEDS: Liothyronine 5 MCG TAB PO (05:55)
[2019-03-19 07:22] VITALS: BP 155/78; PULSE 74; RESP 17; TEMP 36.9; O2SAT 94
[2019-03-19 07:43] LABS: Abs Immature Grans 0.02 k/cumm (0.0-0.09); Absolute Lymphocyte Count 0.77 k/cumm (1.2-3.4); Absolute Neutrophil Count 6.66 k/cumm (1.2-6.7); HCT 32.1 % (40.0-50.0); HGB 10.4 g/dL (13.5-17.5); Immature Grans % 0.3; Lymphocytes % 9.8; Mean Corp. HGB Concentration 32.4 g/dL (32.0-36.0); Mean Corpuscular Volume 95.8 fL (80-95); Mean Platelet Volume 10.6 fL (8.0-11.0); Monocytes % 5.1; Neutrophils % 84.8; Platelet Count 298 x1000/uL (130-400); RBC 3.35 m/cumm (4.50-6.00); RBC Distribution Width 16.9 % (11.8-14.1); White Blood Cell Count 7.85 k/cumm (4.4-10.8)
[2019-03-19 07:53] LABS: INR 1.5 (0.9-1.1); Prothrombin Time 15.1 sec (9.3-11.0)
[2019-03-19 08:05] LABS: Anion Gap 8.9 mmol/L (3-11); BUN 52 mg/dL (7-18); CO2 25.1 mmol/L (21.0-32.0); CREATININE 1.44 mg/dL (0.70-1.30); Calcium 9.2 mg/dL (8.5-10.1); Chloride 101 mmol/L (98-107); Estimated GFR 47.95 (mL/min/1.73m2); Glucose 238 mg/dL (70-100); Potassium 4.7 mmol/L (3.5-5.1); Sodium 135 mmol/L (136-145)
[2019-03-19] MEDS: Insulin Aspart 300 UNITS/3 ML PEN SC ×4 (08:42→21:35)
[2019-03-19] MEDS: Calcitonin-Salmon, Synthetic 3.7 ML BTL NS (08:42)
[2019-03-19] MEDS: methylPREDNISolone SUCC 125 MG VIAL 40 MG IVP (08:43)
[2019-03-19] MEDS: Cholecalciferol (Vitamin D3) 1,000 UNIT TAB 2000 UNITS PO (08:44)
[2019-03-19] MEDS: Normal Saline Flush 10 ML SYR IVP (08:44)
[2019-03-19] MEDS: Finasteride 5 MG TAB PO (08:45)
[2019-03-19] MEDS: Folic Acid 1 MG TAB PO (08:45)
[2019-03-19] MEDS: Calcium 600mg/Vit D 200U TAB 2 TAB PO (08:45)
[2019-03-19] MEDS: Lactobacillus Acidophilus CAP 1 CAP PO ×3 (08:45→19:43)
[2019-03-19] MEDS: Spironolactone 50 MG TAB PO (08:45)
[2019-03-19] MEDS: Acetaminophen 500 MG TAB PO ×2 (08:46→19:44)
[2019-03-19] MEDS: FLUoxetine 10 MG TAB 30 MG PO (08:47)
[2019-03-19] MEDS: buPROPion-XL 150 MG TABCR PO (08:47)
[2019-03-19] MEDS: Amoxicillin 875/Clav. 125 TAB PO (08:47)
[2019-03-19] MEDS: Tamsulosin 0.4 MG CAPCR PO (08:47)
[2019-03-19] MEDS: Docusate Sodium 100 MG CAP PO (08:47)
[2019-03-19] MEDS: Pantoprazole 40 MG TABCR PO ×2 (08:47→19:44)
[2019-03-19] MEDS: methylPREDNISolone 4 MG TAB 10 MG PO (08:47)
[2019-03-19] MEDS: oxyCODONE 5 MG TAB PO (09:59)
--- NOTE | 2019-03-19 12:39 | W.DIABETESNO ---
Date of service: 03/19/19 Time of Service: 12:39 Diabetes Note NOTE: Follow up for Mr. Padilla who is here with hypoxia. He is currently taking 10mg Prednisone in AM and 40 in PM. Blood sugars in 2-300s with occasional 400s. He is eating 100% of his meals and recognizes he has lost weight with BMI 28 down to 26. He feels it is because he is eating better. In addition, he has been given now [address] of 30 AM and 35 PM at home. He did have hypoglycemia and insulin was cut by more than half his home dose. Reviewed food guides and hypoglycemia symptoms and treatment with Mr. Padilla. PLAN: WIll follow up with him prior to discharge. Time Spent in Nutritional Counseling and Treatment: 15 minutes face to face
--- NOTE | 2019-03-19 14:10 | CHAPLAIN ---
Miguel was resting in bed when I visited. Today he talked about his children and grandchildren. He told me about he 13 granddaughters and one grandson. He seems to be well supported by family. He said he has learned to take the advice of those who know better than I do, referring to his physicians
--- NOTE | 2019-03-19 15:51 | PGE_ITS ---
Date of Service Date of service: 03/19/19 Time of Service: 15:51 Assessment and Plan Assessment and plan (1) Hypoxia: Status: Acute Assessment and plan: Evidence of hypoxia, fever, and pulmonary abnormalities by imaging with CT in immunosuppressed patient - Official read with diffuse ground-glass opacities initially. Images were pushed to [facility] and reviewed with Pulmonary on 03/06 who agreed that given fever AND immunosuppression, likely to be infectious, and agrees with broad-spectrum coverage. - Consider bacterial infection - Improved with Pip-Jesus and macrolide therapy, changed to oral Augmentin and finished a total 14 day course of antibiotic therapy. - Per initial discussion with pulm, imaging not consistent with Staph infection - Vancomycin d/c'd . MRSA swab negative as well. - No evidence of fungal infection. Rapid Flu negative. Aspergillus, strep Pneumo, Mycoplasma, and Legionella all negative. - Also component of pulmonary edema and volume overload given CT findings and elevating BNP - benefited from diuresis. - Also on Humira, Sulfasalazine, and Leflunomide, with potential for infections as well as pulmonary processes such as ILD and Pulm toxicity - although patient was febrile. Will need pulm follow-up after hospitalization. - Role not clear for procalcitonin given immunocompromised state. - Patient had been maintained on Bactrim for potential PJP given immunosuppressed state and mild elevation in LDH. However, Bactrim was significantly underdosed and not therapeutic for treatment of PJP, and likely without role in patient's improving symptoms. Discussed case again with ID who confirmed that given current clinical scenario and without bronchoscpy and culture positivity would NOT recommend treatment for Pneumocystis. Had [employer] from [facility] [place] repeat CT from 03/15 - interestingly reports that not only do findings not resemble PJP infection, but also appear to be possible underlying ILD with likely chronicity to the findings. Question whether patient has developed some sort of pulmonary interstitial process from underlying RA or use of Sulfasalazine/Leflunomide, with superimposed infection as likely etiology for symptoms. Will benefit from follow-up with pulmonary after discharge, which will be scheduled. (2) Fever: Status: Resolved Assessment and plan: As above. Blood cultures negative. Urinalysis negative for infection. Afebrile since initiation of antibiotic therapy. (3) Diarrhea: Status: Acute Assessment and plan: Likely side-effect of antibiotic therapy. Prior Fecal Leukocytes and C.diff negative. Appears improved. (4) Weakness: Status: Acute Assessment and plan: Improving. Likely secondary to infection. Continue PT. (5) PRISCILLA (acute kidney injury): Status: Resolved Assessment and plan: In setting of illness and poor PO intake, likely pre- renal in etiology. Renal function mildly worse with diuresis - now discontinued. Continue to monitor creatinine. (6) Hypertension: Status: Chronic Assessment and plan: Continue CCB, Spironolactone - continue to hold ARB. Monitor BP. (7) Hyperlipidemia: Status: Acute Assessment and plan: On statin therapy. (8) Diabetes mellitus, type II, insulin dependent: Status: Acute Assessment and plan: Will continue decreased QHS basal insulin only given prior hypoglycemic episodes. Continue to maintain on sliding scale, and continue ADA diet. After further discussion it appears that Mr. Padilla has some significant dietary indiscretion when at home, and has been maintained on an ADA diet here. Current blood sugars appear improved following alteration in basal insulin dosing - now elevated due to high doses of steroids, which are being weaned currently. (9) Obstructive sleep apnea: Status: Chronic Assessment and plan: Noted. Continue CPAP. (10) Coronary artery disease: Status: Chronic Assessment and plan: Underlying CAD in the setting of chronic inflammatory processes with RA and Crohn's Disease. Reportedly with 5 prior TX's, s/p multiple stents (Documented 7 by review of cardiology notes). Appears asymptomatic currently. - Continue statin, prn NTG. Does not appear to be on daily ASA or BB. - Initially with tachycardia, with either sinus arrhythmia with PACs or multi- focal Atach in setting of hypoxia and pulmonary process. Initiated short acting Cardizem, discontinued in the setting of bradycardia. - Given Hgb <8 with concurrent CAD transfused X1 unit PRBCs on 03/07. (11) Crohns disease: Status: Chronic Assessment and plan: On Humira, Mesalamine. Patient also has a history of RA, maintained on Leflunomide as well. Currently all on hold. (12) Anemia: Status: Chronic Assessment and plan: Iron studies with Anemia of Chronic disease. Stool occult blood negative. Also with abnormal thyroid function as potential etiology for worsening values. - Given underlying CAD goal for Hgb >8, patient was transfused with a single unit of PRBCs on 03/07. Hgb stable and improving. (13) Hypothyroidism: Status: Chronic Assessment and plan: Appears to be over-replaced, with slightly depressed TSH and mild elevation in FT4. Continue Levothyroxine but decrease dose. Also on Cytomel. (14) Seizure disorder: Status: Chronic Assessment and plan: Apparent manifestation with Transient speech deficits and Headache per review of neurology notes (15) DVT (deep venous thrombosis): Status: Chronic Assessment and plan: Hx DVT on anticoagulation. Continue Coumadin, with daily INR. (16) DVT prophylaxis: Status: Acute Assessment and plan: Monitor daily INR - Coumadin restarted due to subtherpeutic levels, with additional dose today. (17) Advance directive on file: Status: Acute Assessment and plan: Full Code. Subjective Subjective Interval history since last seen: 73-year-old man with past medical history si gnificant for long-standing vertigo, as well as RA and Crohn's disease maintained chronically on immunosuppressive therapy, being admitted from [facility] Emergency Department on 03/05 with a diagnosis of weakness and falls. Mr. Padilla has a past Medical History significant for RA and Crohn's disease, maintained on daily steroids and immune suppressive therapy. He also has a significant cardiac history, with multiple MIs in the past with reported 7 stents, last 2 occurring in 2010 in [place]. His last stress test in 2018 showed a fixed defect. His other history includes DM, HTN, dyslipidemia, h ypothyroidism, FRANCIE on CPAP therapy, ED s/p penile implant, prior CVA, moderate AI, depression, hx DVT on AC with coumadin, and MGUS. He also has noted seizure disorder, manifested by headache and transient speech difficulties. He has a herniated disc in his lumbar region that was scheduled for potential intervention prior to his admission, not attended by the patient due to feeling ill. Mr. Padilla presented to the ED with complaints of vertigo type symptoms. 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 Ya of neurology back in September of this year. He was also noted to have gait imbalance that was deemed multifactorial in the setting of vertigo, orthostatic hypotension, and significant neuropathy. However the patient reported that while his vertigo has been constant, he had suffered a fall on the day prior to his admission. His wifereported that he has been falling quite a bit at home recently. He also endorsed worsening weakness. Evaluation in the ED was noteworthy for mild PRISCILLA with a creatinine of 1.77, mildly depressed TSH with mildly elevated FT4, and a Urinalysis that while high in specific gravity was negative for any signs of infection or pyuria. BNP was also checked and relatively unremarkable at 615 (patient's prior values have been as high as 7000). Chest x-ray showed no acute pulmonary process. ECG was initially reported by the ED as AFib, but upon closer inspection noted to be either a Multifocal Tachycardia or a sinus arrhythmia with potential PACs. Patient was admitted for further evaluation and treatment of his ongoing weakness, with recent frequent falls. Shortly following admission Mr. Padilla was noted to be slightly hypoxic and s piked a fever. Subsequent ABG showed evidence of hypoxia, and CT of the chest was obtained and showed ground glass opacities. Broad-spectrum antibiotics were initiated, and Mr. Padilla has remained afebrile since - however, his oxygen demand increased prompting repeat imaging, with CXR showing interval worsening of RUL infiltrate (repeat 2 days later unchanged), with subsequent CT showing improvement of ground-glass opacities but with increasing interstitial changes. These findings in addition to a BNP that increased from 615 to 5403 lead to a diagnosis of likely volume overload, and Mr. Padilla was initiated on diuretic therapy. However, he was also empirically initiated on therapy for PJP by previous hospitalist, but at significantly subtherapeutic doses. He feels well from a respiratory standpoint, and remains off supplemental oxygen. No overnight events reported. Remains afebrile. Exam Narrative Exam Narrative: General: Patient appears comfortable, AAOX3, NAD Neck: Supple CV: Regular, nontachycardic, S1S2, No rubs, murmurs, or gallops. Pulmonary: minimal bibasilar crackles improved, otherwise clear with good air entry and no wheezing. Abdomen: + Bowel Sounds, soft, nontender, nondistended Vascular: Mild lower extremity edema Psych: Normal mood and affect. Objective Objective Clinical Data: Abnormal lab results 03/19/19 03/19/19 03/19/19 Range/Units 07:06 07:06 07:06 RBC 3.35 L (4.50-6.00) m/cumm Hgb 10.4 L (13.5-17.5) g/dL Hct 32.1 L (40.0-50.0) % MCV 95.8 H (80-95) fL RDW 16.9 H (11.8-14.1) % Absolute Lymphocytes 0.77 L (1.2-3.4) k/cumm PT 15.1 H (9.3-11.0) sec INR 1.5 H (0.9-1.1) Sodium 135 L (136-145) mmol/L BUN 52 H (7-18) mg/dL Creatinine 1.44 H (0.70-1.30) mg/dL Glucose 238 H (70-100) mg/dL Vital Signs Temperature 36.9 C 03/19/19 07:22 Temperature Source Tympanic 03/19/19 07:22 Pulse 74 03/19/19 07:22 Pulse Rhythm Regular 03/19/19 15:43 Pulse 101 H 03/05/19 15:40 Respiratory Rate 17 03/19/19 07:22 Respiratory Effort Non-Labored 03/19/19 15:43 Respiratory Depth Normal 03/19/19 15:43 Respiratory Pattern Normal 03/19/19 15:43 Blood Pressure 155/78 H 03/19/19 07:22 Blood Pressure Mean 76 03/05/19 15:31 Blood Pressure Position Sitting 03/05/19 10:19 Pulse Oximetry 94 L 03/19/19 07:22 Oxygen Delivery Method Room Air 03/19/19 07:22 Oxygen Flow Rate 0 03/19/19 07:22 Fraction of Inspired Oxygen (FIO2) 21 03/19/19 10:21 Pain Level 0 03/19/19 07:22 Comment 03/17/19 09:10 Intake & Output 03/18/19 03/19/19 03/19/19 23:59 11:59 23:59 Intake Total 720 / 745 10 / 250 240 / 250 Output Total 940 / 1690 640 / 640 Balance -220 / -945 -630 / -390 240 / -390 Weight 88.4 kg Intake: IV Oral 720 / 720 240 / 240 Output: Urine 940 / 1690 640 / 640 Other: Urine Color Yellow Pale Yellow Urine Appearance Clear Clear Clear Comment Unknown amount of urine mixed with stool. Stool Occult Blood Positive Stool Size Large Large Stool Characteristics Soft Soft Formed Voiding Methods Toilet Toilet Laboratory Results WBC 7.85 k/cumm (4.4-10.8) 03/19/19 07:06 RBC 3.35 m/cumm (4.50-6.00) L 03/19/19 07:06 Hgb 10.4 g/dL (13.5-17.5) L 03/19/19 07:06 Hct 32.1 % (40.0-50.0) L 03/19/19 07:06 MCV 95.8 fL (80-95) H 03/19/19 07:06 MCH 31.0 pg (27.0-33.0) 03/19/19 07:06 MCHC 32.4 g/dL (32.0-36.0) 03/19/19 07:06 RDW 16.9 % (11.8-14.1) H 03/19/19 07:06 Plt Count 298 x1000/uL (130-400) 03/19/19 07:06 MPV 10.6 fL (8.0-11.0) 03/19/19 07:06 Immature Gran % 0.3 03/19/19 07:06 Neutrophils % 84.8 03/19/19 07:06 Lymphocytes % 9.8 03/19/19 07:06 Monocytes % 5.1 03/19/19 07:06 Eosinophils % 0.0 03/19/19 07:06 Basophils % 0.0 03/19/19 07:06 Absolute Neutrophils 6.66 k/cumm (1.2-6.7) 03/19/19 07:06 Absolute Lymphocytes 0.77 k/cumm (1.2-3.4) L 03/19/19 07:06 Absolute Monocytes 0.40 k/cumm (0.11-0.7) 03/19/19 07:06 Absolute Eosinophils 0.00 k/cumm (0.0-0.7) 03/19/19 07:06 Absolute Basophils 0.00 k/cumm (0.0-0.2) 03/19/19 07:06 Differential Comment Rbc morph reviewed 03/16/19 07:10 RBC Morphology See below 03/16/19 07:10 Polychromasia Present 03/16/19 07:10 Anisocytosis 1+ 03/16/19 07:10 Macrocytosis 1+ 03/16/19 07:10 PT 15.1 sec (9.3-11.0) H 03/19/19 07:06 INR 1.5 (0.9-1.1) H 03/19/19 07:06 APTT 89.0 sec (21.0-31.4) H* D 03/06/19 12:55 D-Dimer 1750 ng/mlFEU (<500) H 03/05/19 10:30 Sample Site Right radial 03/05/19 16:55 pCO2 27 mmHg (34-47) L 03/05/19 16:55 pO2 55 mmHg (83-108) L 03/05/19 16:55 O2 Saturation 88 % (94-98) L 03/05/19 16:55 ABG pH 7.48 (7.35-7.45) H 03/05/19 16:55 ABG HCO3 20 mmol/L (22-28) L 03/05/19 16:55 ABG Total CO2 19 mmol/L (22-29) L 03/05/19 16:55 ABG Base Excess -3.5 mmol/L (-3-3) L 03/05/19 16:55 FiO2 R/a % 03/05/19 16:55 Sodium 135 mmol/L (136-145) L 03/19/19 07:06 Potassium 4.7 mmol/L (3.5-5.1) 03/19/19 07:06 Chloride 101 mmol/L (98-107) 03/19/19 07:06 Carbon Dioxide 25.1 mmol/L (21.0-32.0) 03/19/19 07:06 Anion Gap 8.9 mmol/L (3-11) 03/19/19 07:06 BUN 52 mg/dL (7-18) H 03/19/19 07:06 Creatinine 1.44 mg/dL (0.70-1.30) H 03/19/19 07:06 Estimated GFR/1.73 m2 47.95 (mL/min/1.73m2) 03/19/19 07:06 Glucose 238 mg/dL (70-100) H 03/19/19 07:06 Lactate 1.2 mmol/L (0.6-1.4) 03/07/19 07:57 Calcium 9.2 mg/dL (8.5-10.1) 03/19/19 07:06 Magnesium 2.0 mg/dL (1.8-2.4) 03/19/19 07:06 Iron 54 ug/dL (50-175) 03/06/19 06:37 TIBC 147 ug/dL (250-450) L 03/06/19 06:37 Transferrin % Sat 37 % (20-55) 03/06/19 06:37 Ferritin > 1000 ng/mL (8-388) H 03/06/19 06:37 Total Bilirubin 0.7 mg/dL (0.2-1.0) 03/05/19 10:30 AST 33 U/L (15-37) 03/05/19 10:30 ALT 37 U/L (16-63) 03/05/19 10:30 Alkaline Phosphatase 78 U/L (46-116) 03/05/19 10:30 Lactate Dehydrogenase 413 U/L (85-227) H 03/12/19 07:15 Troponin I < 0.05 ng/mL (0.00-0.06) 03/06/19 06:37 NT-Pro-B Natriuret Pep 5403 pg/mL (-299) H 03/12/19 07:15 Total Protein 8.1 g/dL (6.4-8.2) 03/05/19 10:30 Albumin 2.7 g/dL (3.4-5.0) L 03/05/19 10:30 Vitamin B12 1113 pg/mL (193-986) H 03/06/19 06:37 Folate > 20.0 ng/mL (8.6-20.0) H 03/06/19 06:37 TSH 0.35 uIU/mL (0.36-3.74) L 03/05/19 10:30 Free T4 1.50 ng/dL (0.76-1.46) H 03/05/19 10:30 Urine Color Yellow (Yellow) 03/05/19 12:20 Urine Clarity Clear (Clear) 03/05/19 12:20 Urine pH 5.5 (5-8) 03/05/19 12:20 Ur Specific [place] >= 1.030 (1.005-1.025) H 03/05/19 12:20 Urine Protein Trace mg/dL (Negative) H 03/05/19 12:20 Urine Ketones Negative mg/dL (Negative) 03/05/19 12:20 Urine Blood Negative (Negative) 03/05/19 12:20 Urine Nitrite Negative (Negative) 03/05/19 12:20 Urine Bilirubin Small (Negative) H 03/05/19 12:20 Urine Urobilinogen 0.2 EU/dL (Up TO 0.2) 03/05/19 12:20 Ur Leukocyte Esterase Negative (Negative) 03/05/19 12:20 Urine RBC Negative (0-2) 03/05/19 12:20 Urine WBC 0-2 HPF (0-5) 03/05/19 12:20 Ur Epithelial Cells Few HPF (Negative) 03/05/19 12:20 Urine Crystals Negative HPF (Negative) 03/05/19 12:20 Urine Bacteria Negative HPF (Negative) 03/05/19 12:20 Urine Casts 0-2 hyaline LPF (Negative) 03/05/19 12:20 Urine Mucus Negative (Negative) 03/05/19 12:20 Ur Culture Indicated? No 03/05/19 12:20 Urine Glucose 500 mg/dL (Negative) H 03/05/19 12:20 Legionella Source (see note) 03/06/19 00:32 Legionella Reprt Status (see note) 03/06/19 00:32 Legionella Final Result (see note) 03/06/19 00:32 M. pneumoniae Source Nasal 03/06/19 02:00 M. pneumoniae (PCR) Negative 03/06/19 02:00 Aspergillus Ag (EIA) <0.500 index (<0.5) 03/12/19 07:15 Ur Strep pneumoniae Ag Negative (Negative) 03/06/19 00:32 Patient ABO/Rh A Positive 03/07/19 07:57 Antibody Screen Negative 03/07/19 07:57 Crossmatch See Detail 03/07/19 07:57
[2019-03-19 16:13] VITALS: BP 119/71; PULSE 89; RESP 17; TEMP 36.6; O2SAT 97
[2019-03-19] MEDS: amLODIPine 5 MG TAB PO (17:08)
--- NOTE | 2019-03-19 17:09 | CMPROGNOTE_ITS ---
- If Service Date Differs Date of service: 03/19/19 Time of Service: 17:09 Care Management Progress Note S/O: Miguel was lying in bed when CM met with him. He was pleasant and engaged in conversation. He reported that he is feeling a lot better today. He also stated that he had reiki today, which he enjoyed. He continues to report that he is 'in no garcia' to go home. CM will continue to follow. A: Miguel is a 73 year old male admitted to [facility] on 03/05/2019 for vertigo and falls. P: Miguel will be discharged home when medically cleared by provider. Anticipate he will require VNA supports and new Home Health PT and RN services upon discharge. CM will continue to follow and support discharge planning considerations.
[2019-03-19 17:21] LABS: Glucose 437 mg/dL (70-100)
[2019-03-19] MEDS: ROSUVASTATIN 20 MG TAB 40 MG PO (19:43)
[2019-03-19 19:45] VITALS: BP 121/72; PULSE 88; RESP 18; TEMP 36.6; O2SAT 97
[2019-03-20] MEDS: Levothyroxine 150 MCG TAB PO (06:40)
[2019-03-20] MEDS: Liothyronine 5 MCG TAB PO (06:40)
[2019-03-20 07:25] LABS: Abs Immature Grans 0.03 k/cumm (0.0-0.09); Absolute Eosinophil Count 0.14 k/cumm (0.0-0.7); Absolute Lymphocyte Count 1.81 k/cumm (1.2-3.4); Absolute Monocyte Count 0.49 k/cumm (0.11-0.7); Absolute Neutrophil Count 5.06 k/cumm (1.2-6.7); Eosinophils % 1.9; HCT 34.2 % (40.0-50.0); HGB 10.9 g/dL (13.5-17.5); Immature Grans % 0.4; Mean Corp. HGB Concentration 31.9 g/dL (32.0-36.0); Mean Corpuscular Hemoglobin 30.9 pg (27.0-33.0); Mean Corpuscular Volume 96.9 fL (80-95); Mean Platelet Volume 10.8 fL (8.0-11.0); Monocytes % 6.5; Neutrophils % 67.2; Platelet Count 283 x1000/uL (130-400); RBC 3.53 m/cumm (4.50-6.00); RBC Distribution Width 16.9 % (11.8-14.1); White Blood Cell Count 7.53 k/cumm (4.4-10.8)
[2019-03-20 07:36] LABS: INR 3.3 (0.9-1.1); Prothrombin Time 31.9 sec (9.3-11.0)
[2019-03-20 07:40] VITALS: BP 148/81; PULSE 58; RESP 18; TEMP 36.4; O2SAT 97
[2019-03-20 07:46] LABS: Anion Gap 9.6 mmol/L (3-11); BUN 42 mg/dL (7-18); CO2 24.4 mmol/L (21.0-32.0); CREATININE 1.39 mg/dL (0.70-1.30); Calcium 9.5 mg/dL (8.5-10.1); Chloride 104 mmol/L (98-107); Estimated GFR 49.95 (mL/min/1.73m2); Glucose 95 mg/dL (70-100); Magnesium 2.1 mg/dL (1.8-2.4); NT-proBNP 895 pg/mL; Potassium 4.8 mmol/L (3.5-5.1); Sodium 138 mmol/L (136-145)
[2019-03-20] MEDS: FLUoxetine 10 MG TAB 30 MG PO (08:51)
[2019-03-20] MEDS: Acetaminophen 500 MG TAB PO (08:51)
[2019-03-20] MEDS: Calcium 600mg/Vit D 200U TAB 2 TAB PO (08:52)
[2019-03-20] MEDS: Docusate Sodium 100 MG CAP PO (08:52)
[2019-03-20] MEDS: Lactobacillus Acidophilus CAP 1 CAP PO ×2 (08:52→13:39)
[2019-03-20] MEDS: Spironolactone 50 MG TAB PO (08:52)
[2019-03-20] MEDS: Finasteride 5 MG TAB PO (08:53)
[2019-03-20] MEDS: Tamsulosin 0.4 MG CAPCR PO (08:53)
[2019-03-20] MEDS: Folic Acid 1 MG TAB PO (08:53)
[2019-03-20] MEDS: buPROPion-XL 150 MG TABCR PO (08:53)
[2019-03-20] MEDS: Pantoprazole 40 MG TABCR PO (08:53)
[2019-03-20] MEDS: methylPREDNISolone SUCC 125 MG VIAL 40 MG IVP (08:54)
[2019-03-20] MEDS: methylPREDNISolone 4 MG TAB 10 MG PO (08:56)
[2019-03-20] MEDS: Normal Saline Flush 10 ML SYR IVP (09:02)
[2019-03-20 10:25] VITALS: PULSE 83; PULSE 86; PULSE 90; RESP 18; RESP 20; RESP 22; O2SAT 91; O2SAT 96; O2SAT 97; O2SAT 98
[2019-03-20] MEDS: Cholecalciferol (Vitamin D3) 1,000 UNIT TAB 2000 UNITS PO (10:50)
[2019-03-20] MEDS: Calcitonin-Salmon, Synthetic 3.7 ML BTL NS (10:50)
[2019-03-20] MEDS: Fluticasone NASAL SPRAY 16 GM BTL NS (10:51)
[2019-03-20] MEDS: Insulin Aspart 300 UNITS/3 ML PEN SC (12:10)
--- NOTE | 2019-03-20 14:27 | W.PM.DS.N ---
Date of service: 03/20/19 Time of Service: 14:28 DS: Diagnosis Discharge Diagnosis (1) Hypoxia: Status: Acute (2) Fever: Status: Resolved (3) Diarrhea: Status: Acute (4) Weakness: Status: Acute (5) PRISCILLA (acute kidney injury): Status: Resolved (6) Hypertension: Status: Chronic (7) Hyperlipidemia: Status: Acute (8) Diabetes mellitus, type II, insulin dependent: Status: Acute (9) Anemia: Status: Chronic (10) Hypothyroidism: Status: Chronic (11) DVT (deep venous thrombosis): Status: Chronic Discharge Plan Disposition Patient Disposition: HOME W/HOME HEALTH SERVICE Condition: Stable Discharge Details Chief Complaint: GenMedical Reason For Visit: VERTIGO, FALLS Admit Date/Time: 03/05/19 14:28 Admit Provider: Kirill Mtz Attending Provider: Kirill Mtz Primary Care Provider: Korin Florian ED Provider: Melanie Arias Hospital Course Hospital Course: Chief Complaint: Weakness, Falls HPI: 73-year-old man with past medical history significant for long-standing vertigo, as well as RA and Crohn's Disease maintained chronically on immunosuppressive therapy, admitted from [facility] Emergency Department on 03/05 with a diagnosis of weakness and falls. Mr. Padilla has a past Medical History significant for RA and Crohn's disease, maintained on daily steroids and immunosuppressive therapy. He also has a significant cardiac history, with multiple MIs in the past with reported 7 stents, last 2 occurring in 2010 in [place]. His last stress test in 2018 showed a fixed defect. His other history includes DM, HTN, dyslipidemia, hypothyroidism, FRANCIE on CPAP therapy, ED s/p penile implant, prior CVA, moderate AI, depression, hx DVT on AC with coumadin, and MGUS. He also has noted seizure disorder, manifested by headache and transient speech difficulties. He has a herniated disc in his lumbar region that was scheduled for potential intervention prior to his admission, not attended by the patient due to feeling ill. Mr. Padilla presented to the ED with complaints of vertigo type symptoms. 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 Ya of neurology back in September of this year. He was also noted to have gait imbalance that was deemed multifactorial in the setting of vertigo, orthostatic hypotension, and significant neuropathy. However the patient reported that while his vertigo has been constant, he had suffered a fall on the day prior to his admission. His reported that he has been falling quite a bit at home recently. He also endorsed worsening weakness. Evaluation in the ED was noteworthy for mild PRISCILLA with a creatinine of 1.77, mildly depressed TSH with mildly elevated FT4, and a Urinalysis that while high in specific gravity was negative for any signs of infection or pyuria. BNP was also checked and relatively unremarkable at 615 (patient's prior values have been as high as 7000). Chest x-ray showed no acute pulmonary process. ECG was initially reported by the ED as AFib, but upon closer inspection noted to be either a Multifocal Tachycardia or a sinus arrhythmia with potential PACs. Patient was admitted for further evaluation and treatment of his ongoing weakness, with recent frequent falls. Shortly following admission Mr. Padilla was noted to be slightly hypoxic and spiked a fever (38.3 originally, then as high as 39.2). Subsequent ABG showed evidence of hypoxia, and CT of the chest was obtained and showed ground glass opacities. Broad-spectrum antibiotics were initiated, and Mr. Padilla remained afebrile since - however, his oxygen demand increased prompting repeat imaging, with CXR showing interval worsening of RUL infiltrate (repeat 2 days later unchanged), with subsequent CT showing improvement of ground-glass opacities but with increasing interstitial changes. These findings in addition to a BNP that increased from 615 to 5403 lead to a diagnosis of likely volume overload, and Mr. Padilla was initiated on diuretic therapy. However, he was also empirically initiated on therapy for PJP by previous hospitalist, but at significantly subtherapeutic doses of Bactrim. He feels well from a respiratory standpoint, stating that his breathing is vastly improved from prior to admission, but remains chronically dyspneic especially with ambulation. He has remained off supplemental oxygen, with O2 titration test today showing sats maintained in the low 90's even with ambulation. No overnight events reported. Remains afebrile. Hospital Course: (1) Hypoxia: Evidence of hypoxia, fever, and pulmonary abnormalities by imaging with CT in immunosuppressed patient - Official read with diffuse ground-glass opacities initially. Images were pushed to [facility] and reviewed with Pulmonary on 03/06 who agreed that given fever AND immunosuppression, likely to be infectious, and agreed with broad-spectrum coverage. - Considered bacterial infection - Improved with Pip-Jesus and macrolide therapy, changed to oral Augmentin and finished a total 14 day course. - Per initial discussion with pulm, imaging not consistent with Staph infection - MRSA Swab negative as well. Vancomycin d/c'd after initial administration. - No evidence of fungal infection. Rapid Flu negative. Aspergillus, strep Pneumo, Mycoplasma, and Legionella all negative. - Also component of pulmonary edema and volume overload given CT findings and elevating BNP -benefited from diuresis. - Role not clear for procalcitonin given immunocompromised state. - Patient had been maintained on Bactrim by Dr. Reed for potential PJP given immunosuppressed state and mild elevation in LDH. However, Bactrim was significantly underdosed and not therapeutic for treatment of PJP, and likely without role in patient's improving symptoms. Discussed case again with ID who confirmed that given current clinical scenario and without bronchoscpy and culture positivity would NOT recommend treatment for Pneumocystis. Had [employer] from [facility] review repeat CT from 03/15 - interestingly reports that not only do findings not resemble PJP infection, but also appear to be possible underlying ILD with likely chronicity to the findings. Question whether patient has developed some sort of pulmonary interstitial process from underlying RA or use of Sulfasalazine/Leflunomide, with superimposed infection as likely etiology for symptoms. Will benefit from follow-up with pulmonary after discharge, which has been scheduled for April. (2) Fever: Blood cultures negative. Urinalysis negative for infection. Afebrile since initiation of antibiotic therapy. (3) Diarrhea: Likely side-effect of antibiotic therapy. Prior Fecal Leukocytes and C.diff negative. Appears improved. (4) Weakness: Improving. Likely secondary to infection. Continue PT at home. (5) PRISCILLA (acute kidney injury): In setting of illness and poor PO intake, likely pre-renal in etiology. Renal function mildly worse with diuresis - now discontinued. Creatinine of 1.4 has been stable for one week, and only slightly above baseline of 1-1.2. Monitor with repeat BMP as outpatient. (6) Hypertension: Continue CCB, Spironolactone - continue to hold ARB for now given mildly elevated Creat above baseline. SBP range from 110-160's . Monitor BP as outpatient. (7) Hyperlipidemia: On statin therapy. (8) Diabetes mellitus, type II, insulin dependent: Initially decreased insulin as inpatient due to hypoglycemic episodes. After further discussion it appeared that Mr. Padilla has some significant dietary indiscretion when at home, and has been maintained on an ADA diet here. Current blood sugars appear improved following alteration in basal insulin dosing - were elevated due to high doses of steroids, now decreasing as steroids are being weaned. Morning glucose of 92, 190 prior to discharge this afternoon. Will resume home insulin regimen with discontinuation of am Levmir, and resumption of pm dose but at 18 Units to start, with titration as allowed by blood sugars. Close monitoring of blood sugars recommended. (9) Obstructive sleep apnea: Continue CPAP. (10) Coronary artery disease: Underlying CAD in the setting of chronic inflammatory processes with RA and Crohn's Disease. Reportedly with 5 prior WA's, s/p multiple stents (Documented 7 by review of cardiology notes). Appears asymptomatic currently. - Continue statin, prn NTG. Does not appear to be on daily ASA or BB. - Initially with tachycardia, with either sinus arrhythmia with PACs or multi-focal Atach in setting of hypoxia and pulmonary process. Initiated short acting Cardizem, discontinued in the setting of bradycardia. - Given Hgb <8 with concurrent CAD transfused X1 unit PRBCs on 03/07. (11) Crohns disease: On Humira, Mesalamine. Patient also has a history of RA, maintained on Leflunomide as well. All held during hospitalization - to resume at time of discharge. (12) Anemia: Iron studies with Anemia of Chronic disease. Stool occult blood negative. Also with abnormal thyroid function as potential etiology for worsening values. - Given underlying CAD goal for Hgb >8, patient was transfused with a single unit of PRBCs on 03/07. Hgb stable and improving - stable in the 10's prior to discharge. (13) Hypothyroidism: Appears to be over-replaced, with slightly depressed TSH and mild elevation in FT4. Continue Levothyroxine but at decreased dose. Also on Cytomel. (14) Seizure disorder: Apparent manifestation with Transient speech deficits and Headache per review of neurology notes. (15) DVT (deep venous thrombosis): Hx DVT on anticoagulation. Will hold Coumadin tonight and resume tomorrow due to slightly supratherapeutic INR - will also repeat INR in 2-3 days. (16) Advance directive on file: Full Code. (17) CVA's: Evidence of Old bilateral lacunar infarcts present on CT at time of admission. Patient on daily anticoagulation and statin therapy. Needs optimization of co-morbidities, but at high risk given his overall history and age. Home Meds and New Rx's Prescriptions: New levothyroxine 150 mcg Tablet 150 mcg PO DAILY@0600 Qty: 30 RF: 0 acidophilus-pectin, citrus 25 million cell -100 mg Tablet 1 cap PO TID Qty: 90 RF: 0 Levemir FlexTouch U-100 Insuln 100 unit/mL (3 mL) Insulin Pen 18 units subcut Q24H Qty: 0 RF: 0 Continued finasteride 5 MG tablet 5 mg PO DAILY Qty: 90 RF: 3 calcium carbonate-vitamin D3 1 EACH tablet 2 ea PO DAILY RF: 0 fluoxetine [Prozac] 10 MG capsule 30 mg PO DAILY RF: 0 nitroglycerin [Nitrostat] 0.4 MG tablet, sublingual 0.4 mg Buccal PRN PRNRF: 0 pyridoxine (vitamin B6) [Vitamin B-6] 50 MG tablet 50 mg PO DAILY RF: 0 fluticasone propionate [Flonase Allergy Relief] 9.9 ML spray,suspension 9.9 ml NS BID PRNRF: 0 rosuvastatin [Crestor] 40 MG tablet 40 mg PO HS RF: 0 amlodipine 5 mg tablet 5 mg PO DAILY RF: 0 bupropion HCl 150 mg tablet extended release 24 hr 150 mg PO QAM RF: 0 pantoprazole 40 mg tablet,delayed release (DR/EC) 40 mg PO DAILY RF: 0 tamsulosin [Flomax] 0.4 mg capsule 0.4 mg PO DAILY RF: 0 calcitonin (salmon) 200 unit/actuation spray,non-aerosol 1 spray INTRANA AL DAILY RF: 0 docusate sodium 100 mg capsule 100 mg PO DAILY RF: 0 lidocaine-prilocaine 2.5-2.5 % cream 1 applic TP PRN RF: 0 melatonin 10 mg tablet 10 mg PO HS PRNRF: 0 warfarin [Coumadin] 1 MG tablet 2.5 mg PO DAILY RF: 0 folic acid 1 MG tablet 1 mg PO QAM RF: 0 sennosides [senna] 8.6 mg Tablet 17.2 mg PO QHS PRNRF: 0 liothyronine [Cytomel] 5 mcg Tablet 5 mcg PO DAILY RF: 0 acetaminophen 500 mg Tablet 500 mg PO BID RF: 0 ipratropium bromide 0.03 % [place],Non-Aerosol 2 spray INTRANASAL QID PRNRF: 0 Saccharomyces boulardii 250 mg Capsule 250 mg PO DAILY RF: 0 diclofenac sodium [Voltaren] 1 % Gel 1 % TOPICAL TID PRN (Reason: Pain) RF: 0 cholecalciferol (vitamin D3) [Vitamin D3] 2,000 unit Capsule 2,000 unit PO DAILY RF: 0 mesalamine [Delzicol] 400 mg Capsule (With Del Rel Tablets) 1,200 mg PO BID RF: 0 leflunomide 20 mg Tablet 20 mg PO DAILY RF: 0 methylprednisolone 4 MG tablet 20 mg PO DAILY Qty: 0 RF: 0 ProAir RespiClick 90 MCG aerosol powdr breath activated 2 puff Inhalation QID PRN PRNRF: 0 Spironolactone 50 MG tablet 50 mg PO DAILY RF: 0 Discontinued levothyroxine [Synthroid] 175 mcg tablet 175 mcg PO DAILY RF: 0 irbesartan 300 mg Tablet 300 mg PO DAILY RF: 0 Levemir FlexTouch U-100 Insuln 100 unit/mL (3 mL) Insulin Pen 30 unit SUBCUT QHS RF: 0 Levemir FlexTouch U-100 Insuln 100 UNIT/ML insulin pen 35 units Sub-Q QAM RF: 0 Discharge Instructions Additional Instructions: Please see your primary care provider within 1 week of discharge. You have an appointment with the Pulmonary Department at [facility] next month. Your Insulin dose has been modified. Please stop your morning dose of Levemir, and reduce your nighttime dose to 18 Units, with close monitoring of your glucose. Please monitor your blood sugar carefully, and if your numbers are less than 80 or consistently more than 400 contact your primary care provider. Please restart your Methylprednisolone (steroid) back up at 20mg daily for 4 days, then decrease dose by 2mg every 4 days until you reach 10mg, then resume reducing the dose by 2mg every 2 weeks as before. Stand Alone Forms: Nursing Discharge Form Referrals: PULMONOLOGY,[facility] [OTHER] - (The office will call you with an appointment) Korin Florian [Primary Care Provider] - 03/23/19 8:45 am Activity:: No strenuous activity Equipment/Supplies:: No Equipment Needed Diet:: Carb Counting Discharge Orders Discharge Orders: Discharge Order (Routine); Ordered 03/20/19 Ordered By: Kirill Mtz DS: Summary Status at Discharge Functional status at discharge: independent ambulation Overall status at discharge: patient is back to baseline Mental Status: mental status grossly normal Speech and Movement: speech and movement normal Mood: congruent mood Affect: normal affect Exam Narrative Exam Narrative: General: Patient appears comfortable, AAOX3, NAD Neck: Supple CV: Regular, nontachycardic, S1S2, No rubs, murmurs, or gallops. Pulmonary: minimal bibasilar crackles improved but present, especially laterally, otherwise clear with good air entry and no wheezing. Abdomen: + Bowel Sounds, soft, nontender, nondistended Vascular: No lower extremity edema Psych: Normal mood and affect. Psych Mental Status: mental status grossly normal Speech and Movement: speech and movement normal Mood: congruent mood Affect: normal affect DS: Data Vitals/I&O Vitals and I&O: Vital Signs Temperature 36.4 C L 03/20/19 07:40 Temperature Source Tympanic 03/20/19 07:40 Pulse 58 L 03/20/19 07:40 Pulse Rhythm Regular 03/20/19 08:50 Pulse 101 H 03/05/19 15:40 Respiratory Rate 18 03/20/19 07:40 Respiratory Effort Non-Labored 03/20/19 08:50 Respiratory Depth Normal 03/20/19 08:50 Respiratory Pattern Normal 03/20/19 08:50 Blood Pressure 148/81 H 03/20/19 07:40 Blood Pressure Mean 76 03/05/19 15:31 Blood Pressure Position Sitting 03/05/19 10:19 Pulse Oximetry 96 03/20/19 10:25 Oxygen Delivery Method Room Air 03/20/19 10:25 Oxygen Flow Rate 0 03/20/19 10:25 Fraction of Inspired Oxygen (FIO2) 21 03/20/19 09:45 Pain Level 0 03/20/19 08:51 Comment 03/17/19 09:10 Intake & Output 03/19/19 03/20/19 03/20/19 23:59 11:59 23:59 Intake Total 240 / 250 360 / 360 Output Total 250 / 890 750 / 990 240 / 990 Balance -10 / -640 -390 / -630 -240 / -630 Weight 88.3 kg Intake: Oral 240 / 240 360 / 360 Output: Urine 250 / 890 750 / 990 240 / 990 Other: Urine Color Yellow Yellow Yellow Urine Appearance Clear Clear Clear Urine Odor None None Stool Characteristics Liquid Brown Voiding Methods Urinal Urinal Urinal Data Completed and Pending Completed studies during hospitalization [Text1]: Exam(s) 03/[address]:CT head wo EXAM: CT HEAD WO CLINICAL HISTORY: trauma, loss of balance TECHNIQUE: CT was performed according to usual protocol. COMPARISON: CTA BRAIN AND NECK from 11/22/2017 FINDINGS: There is mild patient motion artifact. The ventricles and sulci are consistent with the patient's age. Old bilateral lacunar infarcts are present. There are areas of decreased attenuation in the white matter most consistent with small vessel ischemic disease. No acute intracranial hemorrhage, midline shift, or mass effect is present. No acute skull fracture is present. The visualized paranasal sinuses are clear as are the mastoid air cells. IMPRESSION: No acute intracranial process. The findings were discussed with the emergency department on the date of the examination. Exam(s) 03/05 a RAD:XR chest 2V PA & lateral EXAM: XR CHEST 2V PA LATERAL INDICATION: frequent falls, FTT. COMPARISON: CHEST 2 VIEWS PA,LAT from 09/16/2017 TECHNIQUE: 2D digital imaging was performed. FINDINGS: Heart size appears stable and within normal limits given the projection. Pulmonary vasculature is within normal limits. No focal consolidating infiltrate is present. No effusion or pneumothorax is identified. Age-appropriate degenerative changes are seen in the spine. IMPRESSION: No acute pulmonary process --------- Exam(s) 03/[address]:CT chest wo EXAM: CT CHEST WO CLINICAL HISTORY: Hypoxia, Fever TECHNIQUE: The exam was performed according to the usual protocol without contrast enhancement. COMPARISON: CHEST FOR PULMONARY EMBOLUS from 10/16/2012 FINDINGS: There is atherosclerosis of the thoracic aorta. No aneurysmal dilatation is present. The heart is enlarged. No pericardial effusion is seen. Coronary artery calcifications are present. No significant thoracic adenopathy is present. No pleural effusion or pneumothorax is identified. The lungs show scattered ground-glass opacities throughout the lungs. There also appear to be bronchiectatic changes, particularly in the right middle and right lower lobes. The tracheobronchial tree is otherwise unremarkable. Abdominal images shows atherosclerosis. Chronic changes are seen in the thoracic spine suggestive of DISH. There is patient motion artifact. IMPRESSION: 1. Diffuse ground-glass opacities with bronchiectasis. Differential considerations include pneumonia, hemorrhage, pulmonary edema, or interstitial pneumonia. 2. Cardiomegaly. Coronary artery disease. Exam(s) 03/10 a RAD:XR chest 2V PA & lateral EXAM: XR CHEST 2V PA LATERAL INDICATION: follow up pneumonia. COMPARISON: CHEST 2 VIEWS PA,LAT from 09/16/2017 XR CHEST 2V PA LATERAL from 03/05/2019 CT CHEST WO from 03/05/2019 TECHNIQUE: 2D digital imaging was performed. FINDINGS: The heart is enlarged and the aorta is tortuous, unchanged. There are increased mainly interstitial changes which appear more prominent when compared with the previous exam. No effusions are seen. There are mild underlying interstitial changes. IMPRESSION: Interval worsening of bilateral infiltrates. Exam(s) 03/10 a RAD:XR portable chest AP EXAM: XR PORTABLE CHEST AP INDICATION: crackles, suspected CHF. COMPARISON: CT CHEST WO from 03/05/2019 XR CHEST 2V PA LATERAL from 03/10/2019 TECHNIQUE: 2D digital imaging was performed. FINDINGS: The heart is enlarged. The lungs are suboptimally inflated. There are increased densities seen greatest in the right upper lobe. The left lung appears grossly unchanged given differences in technique. No effusions are visible IMPRESSION: Mild interval worsening of right upper lobe infiltrate. Exam(s) a RAD:XR chest 2V PA & lateral EXAM: XR CHEST 2V PA LATERAL CLINICAL HISTORY: follow up pneumonia +/- CHF COMPARISON: CHEST 2 VIEWS PA,LAT from 09/16/2017 XR CHEST 2V PA LATERAL from 03/05/2019 XR PORTABLE CHEST AP from 03/13/2019 FINDINGS: The heart is enlarged. Note is again made of bilateral diffuse patchy intrapulmonary radiodensities with a reticulonodular appearance. Findings are grossly unchanged in comparison with previous examination of March 13. No gross pleural effusion identified. IMPRESSION: Stable appearance of intrapulmonary radiodensities since March 13. These findings were not present on previous examinations in 2018 and presumably represent non resolving pneumonia or other non resolving process. Appropriate follow-up study requested. You may wish to obtain a chest CT as well to compare with recent chest CT of March 05. -------- Exam(s) a CT:CT chest wo EXAM: CT CHEST WO CLINICAL HISTORY: follow up pneumonia TECHNIQUE: The exam was performed according to the usual protocol without contrast. COMPARISON: CT CHEST WO from 03/05/2019 XR CHEST 2V PA LATERAL from 03/15/2019 FINDINGS: Bronchiectasis is again noted, greater in the lower lung willis. Ground glass opacities are again noted, greater in the right upper lobe. There are underlying interstitial changes. There is some increase in interstitial changes when compared with the previous exam. No pleural or pericardial effusions or acute area of consolidation is seen. No mass is identified. The heart is enlarged. Pulmonary arteries dilated to 3.7 cm, consistent with pulmonary artery hypertension. The aorta shows calcification and measures 3.7 cm in diameter. No pneumothorax or acute fracture is seen. IMPRESSION: Increasing interstitial changes when compared with the previous exam. Some improvement of ground-glass opacities. Labs on day of discharge: Labs from last 24 hours 03/20/19 03/20/19 03/20/19 06:50 06:50 06:50 WBC 7.53 RBC 3.53 L Hgb 10.9 L Hct 34.2 L MCV 96.9 H MCH 30.9 MCHC 31.9 L RDW 16.9 H Plt Count 283 MPV 10.8 Immature Gran % 0.4 Neutrophils % 67.2 Lymphocytes % 24.0 Monocytes % 6.5 Eosinophils % 1.9 Basophils % 0.0 Absolute Neutrophils 5.06 Absolute Lymphocytes 1.81 Absolute Monocytes 0.49 Absolute Eosinophils 0.14 Absolute Basophils 0.00 PT 31.9 H D INR 3.3 H D Sodium 138 Potassium 4.8 Chloride 104 Carbon Dioxide 24.4 Anion Gap 9.6 BUN 42 H D Creatinine 1.39 H Estimated GFR/1.73 m2 49.95 Glucose 95 D Calcium 9.5 Magnesium 2.1 NT-Pro-B Natriuret Pep 895 H 03/19/19 17:10 WBC RBC Hgb Hct MCV MCH MCHC RDW Plt Count MPV Immature Gran % Neutrophils % Lymphocytes % Monocytes % Eosinophils % Basophils % Absolute Neutrophils Absolute Lymphocytes Absolute Monocytes Absolute Eosinophils Absolute Basophils PT INR Sodium Potassium Chloride Carbon Dioxide Anion Gap BUN Creatinine Estimated GFR/1.73 m2 Glucose 437 H D Calcium Magnesium NT-Pro-B Natriuret Pep PFSH Medical History Adrenal insufficiency (Chronic) Benign prostatic hyperplasia (Acute 07/03/15) Coronary artery disease (Chronic) Crohns disease (Chronic) Diabetes mellitus, type II, insulin dependent (Acute) DVT (deep venous thrombosis) (Chronic) Erectile dysfunction of organic origin (Acute 07/03/15) GERD (gastroesophageal reflux disease) GI bleed (Chronic) Graves disease (Acute) Hyperlipidemia (Acute) Hypertension (Chronic) Hypothyroidism (Chronic) Obstructive sleep apnea (Chronic) Peripheral neuropathy (Chronic) Rheumatoid arthritis (Chronic) Sensorineural hearing loss, bilateral (Acute 01/28/15) Stroke (Chronic) 2018 Traumatic compression fracture of T12 thoracic vertebra (Acute) Vitamin B12 deficiency (Acute) Vitamin B6 deficiency (Acute) Vitamin D deficiency (Acute) Surgical History Graves' eye disease (Acute) s/p surgery H/O lumbosacral spine surgery (Acute) Prosthesis, Penile implant Family History Father Asthma Sister Asthma Social History Smoking/Tobacco Use Status: Never Alcohol Intake: never Drug use: Never Household members: spouse Number of Children: 5 current occupation: Retired [employer] What is your relationship status?: Panel score (0-1 are the most socially isolated patients): 1 Do you feel safe at home: Yes Do you feel safe in your relationship?: Yes
--- NOTE | 2019-03-20 15:48 | PDOC.HHF2F ---
Home Health Certification Home Health Certification: 1. Encounter Date and Reason I certify that MONIKA SHEPHERD was seen by Kirill Mtz on 03/20/19 and that I had a [id number] encounter with this patient that meets the physician face to face encounter requirements. 2. Clinical Findings Supporting Skilled Need and Homebound Status I certify that home health services are medically necessary, include either intermittent usp and/or physical/speech therapy, and that this patient is homebound in that absences from the home require considerable and taxing effort and are infrequent or of short duration, or are attributable to the need to receive medical care. [X] (a) Attached documentation from encounter provides clinical findings supporting skilled need and homebound status (including what assistance patient requires to leave the home). The encounter with the patient was in whole, or in part, for the following medical condition, which is the primary reason for home health care: VERTIGO, FALLS Chcf: Follow-up med changes and post-hospitalization assessment. Physical Therapy: Deconditioning and weakness. History of falls. 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 3. Certification and Authentication I certify that I composed the above information based on my clinical judgement relating to this patient's medical condition and, if applicable, clinical findings communicated to me by the NPP or inpatient physician who performed the Home Health Referral. All further orders will be obtained through Korin Florian (Community Based Physician - PCP)
--- NOTE | 2019-03-20 16:10 | PDOC.CMDIS ---
- If Service Date Differs Date of service: 03/20/19 Time of Service: 16:10 LACE Index Scoring Tool - Questions: Length of Stay (in days): 14 or more Acuity (Admit via E.D.?): Yes Comorbidities: Diabetes w/o Complication E.D. Visits: 1 - Answers: Total Score: 12 Risk of Readmission: High Risk Care Management Discharge Reason for Hospitalization: Vertigo, Falls, Hypoxia Discharge Plan: Miguel will return home with new orders for RN, PT, OT, INSTRUMENT MAN. He will follow up with his PCP, as recommended. His , Nohemi, will drive him home via private vehicle. He stated that he was happy to be going home, and he is very appreciative of the care he received at [facility]. Patient/Family Education Needs: Review discharge instructions regarding activity levels and medications, discussion of self care including Ask Me Three Services Needed at Discharge: Home Health Care Services
[2019-03-20 16:16] VITALS: BP 126/76; PULSE 79; RESP 18; TEMP 36.7; O2SAT 96
== END 2019-03-20 16:42 | disposition home health service (06) | DRG 193 ==
LOC: ER 12:35 → MS 15:51
PROVIDERS: General Practice; Internal Medicine; Admitting Provider Internal Medicine; Emergency Provider Student in an Organized Health Care Education/Training Program; PCP Nurse Practitioner Family; Visit Provider Internal Medicine
DX: J18.9 Pneumonia, unspecified organism (principal); J81.0 Acute pulmonary edema; N17.9 Acute kidney failure, unspecified; K50.90 Crohn's disease, unspecified, without complications; R09.02 Hypoxemia; R91.8 Other nonspecific abnormal finding of lung field; R53.1 Weakness; I10 Essential (primary) hypertension; E78.5 Hyperlipidemia, unspecified; Z79.4 Long term (current) use of insulin; G47.33 Obstructive sleep apnea (adult) (pediatric); I25.10 Atherosclerotic heart disease of native coronary artery without angina pectoris; M06.9 Rheumatoid arthritis, unspecified; R00.0 Tachycardia, unspecified; D63.8 Anemia in other chronic diseases classified elsewhere; Z79.01 Long term (current) use of anticoagulants; E03.9 Hypothyroidism, unspecified; Z79.52 Long term (current) use of systemic steroids; Z79.899 Other long term (current) drug therapy; I25.2 Old myocardial infarction; Z95.5 Presence of coronary angioplasty implant and graft; I35.1 Nonrheumatic aortic (valve) insufficiency; I69.328 Other speech and language deficits following cerebral infarction; Z71.3 Dietary counseling and surveillance; E87.6 Hypokalemia; E11.649 Type 2 diabetes mellitus with hypoglycemia without coma; R19.5 Other fecal abnormalities; E83.42 Hypomagnesemia; R19.7 Diarrhea, unspecified; T36.95XA Adverse effect of unspecified systemic antibiotic, initial encounter; E11.65 Type 2 diabetes mellitus with hyperglycemia; T38.0X5A Adverse effect of glucocorticoids and synthetic analogues, initial encounter; D64.9 Anemia, unspecified; D47.2 Monoclonal gammopathy; G40.909 Epilepsy, unspecified, not intractable, without status epilepticus; R29.6 Repeated falls; W19.XXXA Unspecified fall, initial encounter; K21.9 Gastro-esophageal reflux disease without esophagitis; E11.42 Type 2 diabetes mellitus with diabetic polyneuropathy; R42 Dizziness and giddiness; M54.9 Dorsalgia, unspecified; R94.6 Abnormal results of thyroid function studies; Z86.718 Personal history of other venous thrombosis and embolism
CPT/HCPCS: 36415; 36430; 71250; 80048; 80053; 82805; 82947; 86850; 86900; 86901; 86920; 87040; 87081; 87305; 87449; 93005; 94618; 97110; 97163; 97530; 99222; 99223; 99232; 99233; 99239; 99253; 99285; 36600; 70450; 71045; 71046; 81003; 81015; 82607; 82728; 82746; 83540; 83550; 83605; 83615; 83630; 83735; 83880; 84439; 84443; 84484; 85014; 85018; 85025; 85379; 85610; 85730; 87324; 87450; 87581; 93010; 94640; J0456; J1644; J1650; J1720; J1941; J1956; J2270; J2543; J2930; J3475; J3480; J3490; J7509; J7620; P9016

== ENCOUNTER 2019-03-22 12:15 | Inpatient (IN) | payer MEDICARE, SELFPAY ==
[2019-03-22] VITALS (13 sets, daily range): BP systolic 81–133; BP diastolic 47–69; PULSE 61–84; RESP 17–18; TEMP 35.2–36.7; O2SAT 92–99
--- NOTE | 2019-03-22 12:43 | W.ED.GENAD ---
Discharge Plan Disposition Patient Disposition: [facility] INPATIENT Condition: Stable Discharge Details Chief Complaint: GenMedical Clinical Impression: Generalized weakness, Hypotension, Dehydration Admit Date/Time: 03/22/19 15:21 Admit Provider: Kirill Mtz Attending Provider: Kirill Mtz Primary Care Provider: Korin Florian ED Provider: Brigitte Reinoso Discharge Data Discharge Date/Time-TO BE ENTERED AT DEPARTURE: 03/22/19 17:03 Medical Decision Making 1310 -- 73-year-old male with a history of rheumatoid arthritis on chronic immunosuppression, diabetes, coronary artery disease with 7 stents, hypothyroidism with history of Graves' disease who was recently admitted for 2 weeks and discharged home yesterday for pneumonia presents for generalized weakness, neck and bilateral shoulder pain since yesterday and fall due to weakness in bathroom today. Patient was discharged from the floor yesterday for pneumonia and hypoxia treated with broad-spectrum antibiotics with negative blood and urine cultures. There had been treatment for possible PJP but per hospitalist discussion with [facility] it was thought he did not have PJP. Blood pressure 81/52. Heart rate 60s. Afebrile. Patient appears nontoxic but generally fatigued. EKG notes a rate of 63, sinus with T wave inversion in 1 and aVL which has been seen in previous EKG. Patient appears chronically ill but not in any acute distress. Dry mucous membranes. Lungs clear. Abdomen nontender. No focal deficits. Case discussed with hospitalist who is well familiar with patient. Suspect the patient will need to be admitted for continued monitoring/observation/PT. Differential diagnosis includes deconditioning, failure to thrive, dehydration, electrolyte abnormality, or possible infectious cause. Will place an IV, bolus IV fluids, labs, urinalysis, chest x-ray and CT cervical spine. We will give a small dose of morphine if blood pressure improves. 1500 -- patient admitted to some improvement with morphine but states neck pain is returning. Will give another dose of morphine. BP improved to 101/50. Patient appears comfortable and in no acute distress. Labs and imaging reviewed. White blood cell count 10. Hemoglobin 11. INR 2.4. Lactate 2.7. Troponin negative. Chest x-ray and CT cervical spine negative. Patient unable to give a urinalysis thus far and is declining straight cath. 1525 --Case discussed with hospitalist who accepts patient for admission. Suspect generalized weakness due to dehydration and general deconditioning due to recent hospitalization. Also consideration of adrenal insufficiency due to recent steroid boost and now taper. Medical Records Medical records reviewed: Yes I reviewed the patient's medical records. Imaging Data Radiologic Study: Radiologist's impression: XR CHEST 2V PA AND LATERAL INDICATION: weakness, hypotensive, r/o acute disease. COMPARISON: XR CHEST 2V PA AND LATERAL from 03/05/2019 XR CHEST 2V PA AND LATERAL from 03/10/2019 CT CHEST WO from 03/15/2019 XR CHEST 2V PA AND LATERAL from 03/15/2019 TECHNIQUE: 2D digital imaging was performed. FINDINGS: The heart is again noted to be enlarged, unchanged. There are bilateral chronic interstitial changes. No acute infiltrate, effusion or overt pulmonary edema is seen. IMPRESSION: No acute abnormality. CT CERVICAL SPINE WO CLINICAL HISTORY: diffuse neck, b/l shoulder pain, r/o acute process COMPARISON: CTA BRAIN AND NECK from 11/22/2017 XR CHEST 2V PA AND LATERAL from 03/15/2019 XR CHEST 2V PA AND LATERAL from 03/22/2019 FINDINGS: No fracture or subluxation is seen. There are degenerative changes at C1-2. Degenerative disc changes and facet degenerative changes are also seen. No disc herniation is visible. The airway appears intact. There is no paraspinal hematoma or prevertebral soft tissue swelling. Visualized portions of the mastoid air cells appear clear. No skull base fracture is visible. IMPRESSION: Degenerative changes. No acute abnormality. Lab Data Lab results reviewed: Yes I reviewed the patient's lab results. Labs: 03/22/19 13:27 Blood Blood Culture - Pending 03/22/19 13:23 Blood Blood Culture - Pending Laboratory Tests Range/Units 03/22/19 03/22/19 03/22/19 12:50 12:50 12:50 WBC (4.4-10.8) k/cumm 10.58 RBC (4.50-6.00) m/cumm 3.69 L Hgb (13.5-17.5) g/dL 11.5 L Hct (40.0-50.0) % 36.2 L MCV (80-95) fL 98.1 H MCH (27.0-33.0) pg 31.2 MCHC (32.0-36.0) g/dL 31.8 L RDW (11.8-14.1) % 17.2 H Plt Count (130-400) x1000/uL 288 MPV (8.0-11.0) fL 11.0 Immature Gran % 0.7 Neutrophils % 81.7 Lymphocytes % 12.1 Monocytes % 3.5 Eosinophils % 2.0 Basophils % 0.0 Absolute Neutrophils (1.2-6.7) k/cumm 8.65 H Absolute Lymphocytes (1.2-3.4) k/cumm 1.28 Absolute Monocytes (0.11-0.7) k/cumm 0.37 Absolute Eosinophils (0.0-0.7) k/cumm 0.21 Absolute Basophils (0.0-0.2) k/cumm 0.00 PT (9.3-11.0) sec INR (0.9-1.1) APTT (21.0-31.4) sec Sodium (136-145) mmol/L 137 Potassium (3.5-5.1) mmol/L 4.8 Chloride (98-107) mmol/L 104 Carbon Dioxide (21.0-32.0) mmol/L 22.1 Anion Gap (3-11) mmol/L 10.9 BUN (7-18) mg/dL 43 H Creatinine (0.70-1.30) mg/dL 1.59 H Estimated GFR/1.73 m2 (mL/min/1.73m2) 42.77 Glucose (70-100) mg/dL 183 H D Lactate (0.6-1.4) mmol/L 2.7 H* Calcium (8.5-10.1) mg/dL 9.4 Magnesium (1.8-2.4) mg/dL 2.0 Total Bilirubin (0.2-1.0) mg/dL 0.5 AST (15-37) U/L 25 ALT (16-63) U/L 65 H Alkaline Phosphatase (46-116) U/L 67 Troponin I (0.00-0.06) ng/mL < 0.05 Total Protein (6.4-8.2) g/dL 7.0 Albumin (3.4-5.0) g/dL 3.0 L Range/Units 03/22/19 12:50 WBC (4.4-10.8) k/cumm RBC (4.50-6.00) m/cumm Hgb (13.5-17.5) g/dL Hct (40.0-50.0) % MCV (80-95) fL MCH (27.0-33.0) pg MCHC (32.0-36.0) g/dL RDW (11.8-14.1) % Plt Count (130-400) x1000/uL MPV (8.0-11.0) fL Immature Gran % Neutrophils % Lymphocytes % Monocytes % Eosinophils % Basophils % Absolute Neutrophils (1.2-6.7) k/cumm Absolute Lymphocytes (1.2-3.4) k/cumm Absolute Monocytes (0.11-0.7) k/cumm Absolute Eosinophils (0.0-0.7) k/cumm Absolute Basophils (0.0-0.2) k/cumm PT (9.3-11.0) sec 23.9 H D INR (0.9-1.1) 2.4 H D APTT (21.0-31.4) sec 25.1 Sodium (136-145) mmol/L Potassium (3.5-5.1) mmol/L Chloride (98-107) mmol/L Carbon Dioxide (21.0-32.0) mmol/L Anion Gap (3-11) mmol/L BUN (7-18) mg/dL Creatinine (0.70-1.30) mg/dL Estimated GFR/1.73 m2 (mL/min/1.73m2) Glucose (70-100) mg/dL Lactate (0.6-1.4) mmol/L Calcium (8.5-10.1) mg/dL Magnesium (1.8-2.4) mg/dL Total Bilirubin (0.2-1.0) mg/dL AST (15-37) U/L ALT (16-63) U/L Alkaline Phosphatase (46-116) U/L Troponin I (0.00-0.06) ng/mL Total Protein (6.4-8.2) g/dL Albumin (3.4-5.0) g/dL ECG Data Attestation: I personally reviewed and interpreted this ECG (s) as follows: Interpretation: rate of 63, sinus, TWI in lead I and aVL, no acute change from previous EKG, CO 164, QTc 434, QRS 110. No significant acute change from previous. HPI General Mode of arrival: ambulatory. Date/Time Provider Initiated Documentation: 03/22/19 12:15. Limitations to Documentation: no limitations. Information obtained by: patient. HPI Narrative: Patient is a 73-year-old male with a history of rheumatoid arthritis on chronic immunosuppression, coronary artery disease and 7 cardiac stents, Crohn's disease, hypothyroidism, Graves' disease, diabetes, hypertension, hyperlipidemia, sleep apnea presents for generalized weakness and neck and shoulder pain since yesterday. Patient states today he was transferring to the toilet from his wheelchair when he became weak and fell. He denies syncope. He sustained an abrasion to his left elbow but otherwise denies any injury from the fall. Denies head injury or LOC. Patient was admitted here for 2 weeks and discharged from the floor yesterday where he was treated for pneumonia and hypoxia. He had been treated for potential P SHUBHAM but after hospital discussion with [facility], it was thought that he did not have PGP. Patient states his neck and shoulder pain is worse with movement. He denies any headache, chest pain, shortness of breath, abdominal pain. He has a history of chronic back pain. He denies any numbness or weakness in his arms or legs. He denies any fever. He states that he did eat breakfast this morning. Related Data Home Medications Medication Instructions Recorded Confirmed folic acid 1 mg PO QAM 10/13/12 03/22/19 warfarin [Coumadin] 2.5 mg PO DAILY 10/13/12 03/22/19 finasteride 5 mg PO DAILY #90 tab-cap 03/29/14 03/22/19 calcium carbonate-vitamin D3 2 ea PO DAILY 07/03/15 03/22/19 fluoxetine [Prozac] 30 mg PO DAILY tab-cap 07/03/15 03/22/19 fluticasone propionate [Flonase 9.9 ml NS BID PRN 07/03/15 03/22/19 Allergy Relief] nitroglycerin [Nitrostat] 0.4 mg BUCCAL PRN PRN tab-cap 07/03/15 03/22/19 pyridoxine (vitamin B6) [Vitamin 50 mg PO DAILY 07/03/15 03/22/19 B-6] rosuvastatin [Crestor] 40 mg PO HS 07/03/15 03/22/19 ProAir RespiClick 2 puff INHALATION QID PRN PRN 10/21/17 03/22/19 Spironolactone 50 mg PO DAILY 10/21/17 03/22/19 amlodipine 5 mg tablet 5 mg PO DAILY 08/23/18 03/22/19 bupropion HCl 150 mg 24 hr tablet, 150 mg PO QAM 08/23/18 03/22/19 extended release calcitonin (salmon) 200 1 spray INTRANA AL DAILY 08/23/18 03/22/19 unit/actuation nasal spray docusate sodium 100 mg capsule 100 mg PO DAILY 08/23/18 03/22/19 lidocaine-prilocaine 2.5 %-2.5 % 1 applic TP PRN gm 08/23/18 03/22/19 topical cream melatonin 10 mg tablet 10 mg PO HS PRN 08/23/18 03/22/19 pantoprazole 40 mg tablet,delayed 40 mg PO DAILY 08/23/18 03/22/19 release tamsulosin 0.4 mg capsule 0.4 mg PO DAILY 08/23/18 03/22/19 Saccharomyces boulardii 250 mg PO DAILY 03/05/19 03/22/19 acetaminophen 500 mg PO BID 03/05/19 03/22/19 cholecalciferol (vitamin D3) 2,000 unit PO DAILY 03/05/19 03/22/19 [Vitamin D3] diclofenac sodium [Voltaren] 1 % TOPICAL TID PRN 03/05/19 03/22/19 ipratropium bromide 2 spray INTRANASAL QID PRN 03/05/19 03/22/19 leflunomide 20 mg PO DAILY 03/05/19 03/22/19 liothyronine [Cytomel] 5 mcg PO DAILY 03/05/19 03/22/19 mesalamine [Delzicol] 1,200 mg PO BID 03/05/19 03/22/19 sennosides [senna] 17.2 mg PO QHS PRN 03/05/19 03/22/19 acidophilus-pectin, citrus 1 cap PO TID #90 tab 03/20/19 03/22/19 levothyroxine 150 mcg PO DAILY@0600 #30 tab 03/20/19 03/22/19 methylprednisolone 20 mg PO DAILY #0 tab 03/20/19 03/22/19 insulin detemir U-100 [Levemir 25 unit SUBCUT HS 03/22/19 03/22/19 FlexTouch U-100 Insuln] insulin detemir U-100 [Levemir 35 units SUBCUT DAILY 03/22/19 03/22/19 FlexTouch U-100 Insuln] Previous Rx's Medication Instructions Recorded acidophilus-pectin, citrus 1 cap PO TID #90 tab 03/20/19 levothyroxine 150 mcg PO DAILY@0600 #30 tab 03/20/19 methylprednisolone 20 mg PO DAILY #0 tab 03/20/19 Allergies Allergy/AdvReac Type Severity Reaction Status Date / Time infliximab Allergy Unknown Verified 03/22/19 12:20 methotrexate AdvReac Mild Unverified 03/22/19 12:20 atorvastatin calcium AdvReac Bones ache. Unverified 03/22/19 12:20 [From Lipitor] RAMICAIN AdvReac Uncoded 03/22/19 12:20 General Stated Complaint: GenMedical HEMA: 3 Review of Systems All systems reviewed & are unremarkable except as noted in HPI and below Constitutional Constitutional: Reports as per HPI, Denies chills, Denies fever(s) and Reports weakness Eyes Eyes: Denies blurry vision ENT Ears, Nose, Mouth, and Throat: Denies dizziness, Reports neck pain, Denies sore throat and Denies throat swelling Cardiovascular Cardiovascular: Denies chest pain and Denies dyspnea Respiratory Respiratory: Denies cough and Denies dyspnea Gastrointestinal Gastrointestinal: Denies abdominal pain, Denies diarrhea and Denies vomiting Genitourinary Genitourinary: Denies hematuria and Denies dysuria Musculoskeletal Musculoskeletal: Denies back pain, Reports neck pain and Denies numbness Integumentary/Breasts Skin/Breast: Denies lesions and Denies rash Neurologic Neurologic: Denies dizziness, Denies focal weakness, Denies numbness and Reports weakness Allergic/Immunologic Allergic/Immunologic: Denies throat swelling [facility] Medical History Adrenal insufficiency (Chronic) Benign prostatic hyperplasia (Acute 07/03/15) Coronary artery disease (Chronic) Crohns disease (Chronic) Diabetes mellitus, type II, insulin dependent (Acute) DVT (deep venous thrombosis) (Chronic) Erectile dysfunction of organic origin (Acute 07/03/15) GERD (gastroesophageal reflux disease) GI bleed (Chronic) Graves disease (Acute) Hyperlipidemia (Acute) Hypertension (Chronic) Hypothyroidism (Chronic) Obstructive sleep apnea (Chronic) Peripheral neuropathy (Chronic) Rheumatoid arthritis (Chronic) Sensorineural hearing loss, bilateral (Acute 01/28/15) Stroke (Chronic) 2018 Traumatic compression fracture of T12 thoracic vertebra (Acute) Vitamin B12 deficiency (Acute) Vitamin B6 deficiency (Acute) Vitamin D deficiency (Acute) Surgical History Graves' eye disease (Acute) s/p surgery H/O lumbosacral spine surgery (Acute) Prosthesis, Penile implant Family History Father Asthma Sister Asthma Social History Smoking/Tobacco Use Status: Never Alcohol Intake: never Drug use: Never Substance use type: does not use Household members: spouse Number of Children: 5 current occupation: Retired [employer] What is your relationship status?: Panel score (0-1 are the most socially isolated patients): 1 Do you feel safe at home: Yes Do you feel safe in your relationship?: Yes Exam Const General: cooperative and ill appearing chronically Orientation: alert and awake HENMT Head: normal to inspection Ears: hearing grossly normal bilaterally, external ears normal and TM's normal bilaterally General nose exam: external nose normal Face and sinus: normal facial exam Mouth: mucous membranes dry Teeth and gingiva: dentition normal Throat: posterior oropharynx normal Eyes General: appearance normal, both eyes and all related structures Eyelids: eyelids normal Pupils: PERRL EOM: EOM intact bilaterally Neck Neck: normal visual inspection Lymphatic: no lymphadenopathy noted Chest Chest: normal inspection of the chest Resp Effort & Inspection: normal respiratory effort and able to speak in complete sentences Auscultation: clear to auscultation bilaterally Cardio Rate: regular rate Rhythm: regular rhythm GI Inspection: normal to inspection Palpation: soft, not firm, no guarding, no hepatosplenomegaly, no masses and nontender Auscultation: normal bowel sounds Back/Spine/Pelvis Back: no CVA tenderness Skin General skin exam: no rashes or lesions noted Neuro General: alert, awake and moves all extremities Cranial Nerves: CN's II-XI intact bilaterally Cognition: normal cognition Speech: speech normal Gait: normal gait Motor: muscle tone normal throughout and strength 5/5 throughout Sensory Exam: no sensory deficits noted Extrem General: normal to inspection, full ROM and normal capillary refill Other: Ecchymosis noted to the dorsal aspect PIP joint left third toe without pain with range of motion or tenderness to palpation. There is a superficial abrasion noted to dorsal aspect PIP joint left second toe without pain with range of motion or tenderness to palpation. Psych Appearance: grossly normal Mental Status: mental status grossly normal Speech and Movement: speech and movement normal Affect: normal affect Thought Process: normal Course Vital Signs Vital signs: Vital Signs Temperature 97.7 F 03/22/19 12:19 Respiratory Rate 18 03/22/19 12:19 Blood Pressure 81/52 L 03/22/19 12:19 Pulse Oximetry 98 03/22/19 12:19 Temperature 97.7 F 03/22/19 12:19 Temperature Source Skin 03/22/19 12:19 Respiratory Rate 18 03/22/19 12:19 Respiratory Effort 03/22/19 12:18 Blood Pressure 81/52 L 03/22/19 12:19 Pulse Oximetry 98 03/22/19 12:19 Oxygen Delivery Method Room Air 03/22/19 12:19 Oxygen Flow Rate 0 03/22/19 12:19 Pain Level 8 03/22/19 12:19
[2019-03-22] MEDS: Normal Saline 250 ML 500 ML IV (13:00)
[2019-03-22 13:07] LABS: Abs Immature Grans 0.07 k/cumm (0.0-0.09); Absolute Eosinophil Count 0.21 k/cumm (0.0-0.7); Absolute Lymphocyte Count 1.28 k/cumm (1.2-3.4); Absolute Monocyte Count 0.37 k/cumm (0.11-0.7); Absolute Neutrophil Count 8.65 k/cumm (1.2-6.7); HCT 36.2 % (40.0-50.0); HGB 11.5 g/dL (13.5-17.5); Immature Grans % 0.7; Lymphocytes % 12.1; Mean Corp. HGB Concentration 31.8 g/dL (32.0-36.0); Mean Corpuscular Hemoglobin 31.2 pg (27.0-33.0); Mean Corpuscular Volume 98.1 fL (80-95); Monocytes % 3.5; Neutrophils % 81.7; Platelet Count 288 x1000/uL (130-400); RBC 3.69 m/cumm (4.50-6.00); RBC Distribution Width 17.2 % (11.8-14.1); White Blood Cell Count 10.58 k/cumm (4.4-10.8)
[2019-03-22 13:11] LABS: Lactate 2.7 mmol/L (0.6-1.4)
[2019-03-22] MEDS: Normal Saline 250 ML IV (13:31)
[2019-03-22 13:32] LABS: INR 2.4 (0.9-1.1); PTT Activated 25.1 sec (21.0-31.4); Prothrombin Time 23.9 sec (9.3-11.0)
[2019-03-22 13:34] LABS: ALT 65 U/L (16-63); AST 25 U/L (15-37); Alkaline Phosphatase 67 U/L (46-116); Anion Gap 10.9 mmol/L (3-11); BUN 43 mg/dL (7-18); Bilirubin, Total 0.5 mg/dL (0.2-1.0); CO2 22.1 mmol/L (21.0-32.0); CREATININE 1.59 mg/dL (0.70-1.30); Calcium 9.4 mg/dL (8.5-10.1); Chloride 104 mmol/L (98-107); Estimated GFR 42.77 (mL/min/1.73m2); Glucose 183 mg/dL (70-100); Potassium 4.8 mmol/L (3.5-5.1); Sodium 137 mmol/L (136-145)
[2019-03-22 13:35] LABS: Troponin I < 0.05 ng/mL (0.00-0.06)
--- NOTE | 2019-03-22 14:23 | DI.CT_ITS ---
EXAM: CT CERVICAL SPINE WO CLINICAL HISTORY: diffuse neck, b/l shoulder pain, r/o acute process COMPARISON: CTA BRAIN AND NECK from 11/22/2017 XR CHEST 2V PA AND LATERAL from 03/15/2019 XR CHEST 2V PA AND LATERAL from 03/22/2019 FINDINGS: No fracture or subluxation is seen. There are degenerative changes at C1-2. Degenerative disc changes and facet degenerative changes are also seen. No disc herniation is visible. The airway appears inta ct. There is no paraspinal hematoma or prevertebral soft tissue swelling. Visualized portions of the mastoid air cells appear clear. No skull base fracture is visible. IMPRESSION: Degenerative changes. No acute abnormality.
--- NOTE | 2019-03-22 15:43 | NUR.NOTE ---
1300-pt denies need to void, urinal bedside. pt is continent of bladder and a/ox4. 1400-pt denies need to void-refused straight cath-urinal bedside. pt is continent of bladder and is a/ox4. advised with no new orders recieved. 1510-pt continues to deny need to void and continues to refuse catheter. urinal bedside. pt a/ox4. advised with no new orders recieved. Nursing Note:
--- NOTE | 2019-03-22 16:59 | NUR.NOTE ---
1658-pt continues to deny need to void and refuses straight cath. advised with no new orders. pt is a/ox4 and continent of bladder. KWESI Mukherjee on [facility] advised during report with verbal understanding. Nursing Note:
[2019-03-22] MEDS: Hydrocortisone SOD SUC. 100 MG VIAL 50 MG IVP (18:25)
[2019-03-22] MEDS: Normal Saline Flush 10 ML SYR IVP (18:26)
--- NOTE | 2019-03-22 18:44 | W.PM.HP.N ---
Date of service: 03/22/19 Time of Service: 18:44 Assessment and Plan Assessment and plan (1) Weakness: Status: Acute Assessment and plan: Recurrence of weakness and falls - however, this time without concurrent fevers or hypoxia. Current work-up remains negative for infection, but with urinalysis pending. - Possibility for dehydration as cause - patient was diuresed prior to discharge, with blood pressure so far responsive to fluid resuscitation. Continue IVF's. - Hold antihypertensive therapy for the time being and monitor blood pressure carefully. - Patient also displayed evidence of weakness, fatigue, falls, and hypotension, with reported lack of steroid taper as prescribed. Question possible adrenal insufficiency as cause. Will ensure stress dosing at time of admission. (2) ILD (interstitial lung disease): Status: Suspected Assessment and plan: Previously with evidence of hypoxia, fever, and pulmonary abnormalities by imaging with CT in immunosuppressed patient - repeat CT also reviewed by Pulm. Abnormalities deemed to be likely ILD, potentially on the basis of RA or use of immunosuppressants, with superimposed infection. PJP thought unlikely based on review of imaging and history by ID and Pulm. Currently appears to be non-hypoxic, with CXR showing no acute abnormalities. Will ensure follow-up with pulm - already scheduled for next month. Monitor respiratory symptoms closely. (3) PRISCILLA (acute kidney injury): Status: Resolved Assessment and plan: In setting of poor PO intake, possible adrenal inssuficiency. Likely pre-renal in etiology. Continue fluid resuscitation, and monitor creatinine and renal function. (4) Hypertension: Status: Chronic Assessment and plan: Hold CCB, Spironolactone in setting of hypotension, and hydrate. Monitor BP. (5) Diabetes mellitus, type II, insulin dependent: Status: Acute Assessment and plan: Will continue decreased insulin as inpatient due to hypoglycemic episodes during last hospital stay. Initiate sliding scare coverage, and maintain on ADA diet. (6) Coronary artery disease: Status: Chronic Assessment and plan: Underlying CAD in the setting of chronic inflammatory processes with RA and Crohn's Disease. Reportedly with 5 prior TX's, s/p multiple stents (Documented 7 by review of cardiology notes). Appears asymptomatic currently. - Continue statin, prn NTG. Does not appear to be on daily ASA or BB. (7) Obstructive sleep apnea: Status: Chronic Assessment and plan: Continue CPAP. (8) Crohns disease: Status: Chronic Assessment and plan: On Humira, Mesalamine. Patient also has a history of RA, maintained on Leflunomide as well. (9) CVA (cerebral vascular accident): Status: Chronic Assessment and plan: History of prior strokes, with evidence of old bilateral lacunar infarcts present on CT. The patient is on daily anticoagulation and statin therapy, needs optimization of his comorbidities. He likely remains at high risk given his overall history and age. (10) DVT prophylaxis: Status: Acute Assessment and plan: On chronic anticoagulation with warfarin due to a history of DVTs. Monitor daily INR. Currently therapeutic. (11) Advance directive on file: Status: Acute Assessment and plan: DNR/DNI. History of Present Illness History of Present Illness Chief Complaint: Weakness, Falls Narrative: 73-year-old man with past medical history significant for as well as RA and Crohn's Disease maintained chronically on immunosuppressive and steroid therapy, recently discharged from [facility], being admitted from the Emergency Department with a diagnosis of weakness and falls. Mr. Padilla has a past Medical History significant for RA and Crohn's disease, maintained on daily steroids and immunosuppressive therapy. He also has a significant cardiac history, with multiple MIs in the past with reported 7 stents - His last stress test in 2018 showed a fixed defect. His other history includes DM, HTN, dyslipidemia, hypothyroidism, FRANCIE on CPAP therapy, ED s/p penile implant, prior CVA, moderate AI, depression, hx DVT on AC with coumadin, and MGUS. He also has noted seizure disorder, manifested by headache and transient speech difficulties. He has back pain secondary to a herniated disc in his lumbar region. 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 Ya of neurology back in September of this year. He was also noted to have gait imbalance that was deemed multifactorial in the setting of vertigo, orthostatic hypotension, and significant neuropathy. The patient was hospitalized between 03/05 - 03/20 at [facility], treated for likely ILD with superimposed infection, and volume overload in the setting of fluid resuscitation for hypotension and PRISCILLA. He was discharged after completion of antibiotic therapy, and prescribed a steroid taper to slowly return to his baseline dose. Upon return home Mr. Padilla reports onset of recurrence of fatigue and weakness, and reports falls at home. Upon initial evaluation he was noted to be significantly hypotensive, with pressures seen but not recorded as low as in the 70's systolic. He was afebrile and with oxygen saturation between 97-99% on room air. Blood work was remarkable for a lack of leukocytosis, unchanged mild anemia, therapeutic INR, and worsening renal function with evidence of an PRISCILLA. His lactate was also elevated, but with a negative troponin. Imaging with CXR showed no acute abnormality, and CT of CSpine was negative as well. He was referred for admission for further evaluation and treatment. Following admission Mrs. Padilla admits that she was not aware of the increase in her 's steroid dose, and had been giving him lower doses of Methylprednisolone. Review of Systems All systems reviewed & are unremarkable except as noted in HPI and below PFSH Medical History Adrenal insufficiency (Chronic) Benign prostatic hyperplasia (Acute 07/03/15) Coronary artery disease (Chronic) Crohns disease (Chronic) Diabetes mellitus, type II, insulin dependent (Acute) DVT (deep venous thrombosis) (Chronic) Erectile dysfunction of organic origin (Acute 07/03/15) GERD (gastroesophageal reflux disease) GI bleed (Chronic) Graves disease (Acute) Hyperlipidemia (Acute) Hypertension (Chronic) Hypothyroidism (Chronic) Obstructive sleep apnea (Chronic) Peripheral neuropathy (Chronic) Rheumatoid arthritis (Chronic) Sensorineural hearing loss, bilateral (Acute 01/28/15) Stroke (Chronic) 2018 Traumatic compression fracture of T12 thoracic vertebra (Acute) Vitamin B12 deficiency (Acute) Vitamin B6 deficiency (Acute) Vitamin D deficiency (Acute) Surgical History Graves' eye disease (Acute) s/p surgery H/O lumbosacral spine surgery (Acute) Prosthesis, Penile implant Family History Father Asthma Sister Asthma Social History Smoking/Tobacco Use Status: Never Alcohol Intake: never Drug use: Never Substance use type: does not use Household members: spouse Number of Children: 5 current occupation: Retired [employer] What is your relationship status?: Panel score (0-1 are the most socially isolated patients): 1 Do you feel safe at home: Yes Do you feel safe in your relationship?: Yes Meds Home Medications and Allergies Home Medications Medication Instructions Recorded Confirmed Type folic acid 1 mg PO QAM 10/13/12 03/22/19 History warfarin [Coumadin] 2.5 mg PO DAILY 10/13/12 03/22/19 History finasteride 5 mg PO DAILY #90 tab-cap 03/29/14 03/22/19 History calcium carbonate-vitamin D3 2 ea PO DAILY 07/03/15 03/22/19 History fluoxetine [Prozac] 30 mg PO DAILY tab-cap 07/03/15 03/22/19 History fluticasone propionate [Flonase 9.9 ml NS BID PRN 07/03/15 03/22/19 History Allergy Relief] nitroglycerin [Nitrostat] 0.4 mg BUCCAL PRN PRN tab-cap 07/03/15 03/22/19 History pyridoxine (vitamin B6) [Vitamin 50 mg PO DAILY 07/03/15 03/22/19 History B-6] rosuvastatin [Crestor] 40 mg PO HS 07/03/15 03/22/19 History ProAir RespiClick 2 puff INHALATION QID PRN PRN 10/21/17 03/22/19 History Spironolactone 50 mg PO DAILY 10/21/17 03/22/19 History amlodipine 5 mg tablet 5 mg PO DAILY 08/23/18 03/22/19 History bupropion HCl 150 mg 24 hr tablet, 150 mg PO QAM 08/23/18 03/22/19 History extended release calcitonin (salmon) 200 1 spray INTRANA AL DAILY 08/23/18 03/22/19 History unit/actuation nasal spray docusate sodium 100 mg capsule 100 mg PO DAILY 08/23/18 03/22/19 History lidocaine-prilocaine 2.5 %-2.5 % 1 applic TP PRN gm 08/23/18 03/22/19 History topical cream melatonin 10 mg tablet 10 mg PO HS PRN 08/23/18 03/22/19 History pantoprazole 40 mg tablet,delayed 40 mg PO DAILY 08/23/18 03/22/19 History release tamsulosin 0.4 mg capsule 0.4 mg PO DAILY 08/23/18 03/22/19 History Saccharomyces boulardii 250 mg PO DAILY 03/05/19 03/22/19 History acetaminophen 500 mg PO BID 03/05/19 03/22/19 History cholecalciferol (vitamin D3) 2,000 unit PO DAILY 03/05/19 03/22/19 History [Vitamin D3] diclofenac sodium [Voltaren] 1 % TOPICAL TID PRN 03/05/19 03/22/19 History ipratropium bromide 2 spray INTRANASAL QID PRN 03/05/19 03/22/19 History leflunomide 20 mg PO DAILY 03/05/19 03/22/19 History liothyronine [Cytomel] 5 mcg PO DAILY 03/05/19 03/22/19 History mesalamine [Delzicol] 1,200 mg PO BID 03/05/19 03/22/19 History sennosides [senna] 17.2 mg PO QHS PRN 03/05/19 03/22/19 History acidophilus-pectin, citrus 1 cap PO TID #90 tab 03/20/19 03/22/19 Rx levothyroxine 150 mcg PO DAILY@0600 #30 tab 03/20/19 03/22/19 Rx methylprednisolone 20 mg PO DAILY #0 tab 03/20/19 03/22/19 Rx insulin detemir U-100 [Levemir 25 unit SUBCUT HS 03/22/19 03/22/19 History FlexTouch U-100 Insuln] insulin detemir U-100 [Levemir 35 units SUBCUT DAILY 03/22/19 03/22/19 History FlexTouch U-100 Insuln] Allergies Allergy/AdvReac Type Severity Reaction Status Date / Time infliximab Allergy Unknown Verified 03/22/19 12:20 methotrexate AdvReac Mild Unverified 03/22/19 12:20 atorvastatin calcium AdvReac Bones ache. Unverified 03/22/19 12:20 [From Lipitor] RAMICAIN AdvReac Uncoded 03/22/19 12:20 Exam Narrative Exam Narrative: General: Patient appears comfortable, AAOX3, NAD Neck: Supple CV: Regular, nontachycardic, S1S2, No rubs, murmurs, or gallops. Pulmonary: Small area of crackles in the left lateral base, unchanged from prior exam, with a smaller area on the right also unchanged. Otherwise Clear to auscultation Abdomen: + Bowel Sounds, soft, nontender, nondistended Vascular: No lower extremity edema Psych: Normal mood and affect. Results Labs Result diagrams: 03/22/19 12:50 03/22/19 12:50 Labs: Laboratory Results - last 24 hr 03/22/19 03/22/19 03/22/19 12:50 12:50 12:50 WBC 10.58 RBC 3.69 L Hgb 11.5 L Hct 36.2 L MCV 98.1 H MCH 31.2 MCHC 31.8 L RDW 17.2 H Plt Count 288 MPV 11.0 Immature Gran % 0.7 Neutrophils % 81.7 Lymphocytes % 12.1 Monocytes % 3.5 Eosinophils % 2.0 Basophils % 0.0 Absolute Neutrophils 8.65 H Absolute Lymphocytes 1.28 Absolute Monocytes 0.37 Absolute Eosinophils 0.21 Absolute Basophils 0.00 PT INR APTT Sodium 137 Potassium 4.8 Chloride 104 Carbon Dioxide 22.1 Anion Gap 10.9 BUN 43 H Creatinine 1.59 H Estimated GFR/1.73 m2 42.77 Glucose 183 H D Lactate 2.7 H* Calcium 9.4 Magnesium 2.0 Total Bilirubin 0.5 AST 25 ALT 65 H Alkaline Phosphatase 67 Troponin I < 0.05 Total Protein 7.0 Albumin 3.0 L 03/22/19 12:50 WBC RBC Hgb Hct MCV MCH MCHC RDW Plt Count MPV Immature Gran % Neutrophils % Lymphocytes % Monocytes % Eosinophils % Basophils % Absolute Neutrophils Absolute Lymphocytes Absolute Monocytes Absolute Eosinophils Absolute Basophils PT 23.9 H D INR 2.4 H D APTT 25.1 Sodium Potassium Chloride Carbon Dioxide Anion Gap BUN Creatinine Estimated GFR/1.73 m2 Glucose Lactate Calcium Magnesium Total Bilirubin AST ALT Alkaline Phosphatase Troponin I Total Protein Albumin Last Vital Signs Temp 35.2 C L 03/22/19 17:52 Pulse 84 03/22/19 17:52 Resp 18 03/22/19 17:52 BP 106/69 03/22/19 17:52 Pulse Ox 98 03/22/19 17:52
[2019-03-22] MEDS: Lactobacillus Acidophilus CAP 1 CAP PO (20:14)
[2019-03-22 21:14] LABS: Bilirubin Negative (Negative); Blood Negative (Negative); Clarity Clear (Clear); Glucose 500 mg/dL (Negative); Ketones Negative (Negative); Leukocyte Esterase Negative (Negative); Nitrite Negative (Negative); Urobilinogen 0.2 EU/dL (Up TO 0.2)
[2019-03-22] MEDS: Rosuvastatin 10 MG TAB 40 MG PO (21:58)
[2019-03-22] MEDS: Normal Saline 1,000 ML 100 ML IV (22:00)
[2019-03-23] MEDS: Hydrocortisone SOD SUC. 100 MG VIAL 50 MG IVP ×3 (01:04→17:32)
[2019-03-23] MEDS: Levothyroxine 150 MCG TAB PO (04:46)
[2019-03-23] MEDS: AMPICILLIN/SULBACTAM 3 GM in Normal Saline 100 ML IVPB (04:46)
[2019-03-23 08:00] VITALS: BP 177/79; PULSE 63; RESP 18; TEMP 36.5; O2SAT 99
[2019-03-23] MEDS: Cholecalciferol (Vitamin D3) 1,000 UNIT TAB 2000 UNITS PO (08:25)
[2019-03-23] MEDS: Liothyronine 5 MCG TAB PO (08:26)
[2019-03-23] MEDS: Pantoprazole 40 MG TABCR PO (08:26)
[2019-03-23] MEDS: Calcium 600mg/Vit D 200U TAB 2 TAB PO (08:26)
[2019-03-23] MEDS: FLUoxetine 10 MG TAB 30 MG PO (08:26)
[2019-03-23] MEDS: buPROPion-XL 150 MG TABCR PO (08:26)
[2019-03-23] MEDS: Lactobacillus Acidophilus CAP 1 CAP PO ×3 (08:26→19:21)
[2019-03-23] MEDS: Docusate Sodium 100 MG CAP PO (08:27)
[2019-03-23] MEDS: Finasteride 5 MG TAB PO (08:27)
[2019-03-23] MEDS: Folic Acid 1 MG TAB PO (08:27)
[2019-03-23] MEDS: Insulin Aspart 300 UNITS/3 ML PEN SC ×3 (08:27→16:56)
[2019-03-23] MEDS: Acetaminophen 325 MG TAB PO ×2 (08:27→14:59)
[2019-03-23] MEDS: Tamsulosin 0.4 MG CAPCR PO (08:27)
--- NOTE | 2019-03-23 08:53 | PDOC.CMIN ---
- If Service Date Differs Date of service: 03/23/19 Time of Service: 08:57 Care Management Initial Assess REASON FOR HOSPITALIZATION:: Generalized weakness, fall at home, hypotension, and dehydration. PAST MEDICAL HISTORY/PAST SURGICAL HISTORY:: Medical History: Adrenal insufficiency (Chronic), Benign prostatic hyperplasia (Acute 07/03/15), Coronary artery disease (Chronic), Crohns disease (Chronic), Diabetes mellitus, type II, insulin dependent (Acute), DVT (deep venous thrombosis) (Chronic), Erectile dysfunction of organic origin (Acute 07/03/15), GERD (gastroesophageal reflux disease), GI bleed (Chronic), Graves disease (Acute), Hyperlipidemia (Acute), Hypertension (Chronic), Hypothyroidism (Chronic), Obstructive sleep apnea (Chronic), Peripheral neuropathy (Chronic), Rheumatoid arthritis (Chronic), Sensorineural hearing loss, bilateral (Acute 01/28/15), Stroke (Chronic) 2018, Traumatic compression fracture of T12 thoracic vertebra (Acute), Vitamin B12 deficiency (Acute), Vitamin B6 deficiency (Acute), and Vitamin D deficiency (Acute). Surgical History: Graves' eye disease (Acute) - s/p surgery, H/O lumbosacral spine surgery (Acute), and Prosthesis, Penile implant. PREVIOUS FUNCTIONAL STATUS/SOCIAL/FAMILY SUPPORTS:: Miguel resides with his , Nohemi, in [place], [place]. 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 His works during the day, Tuesday through Tuesday, and patient is left alone at home. 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 CURRENT FUNCTIONAL STATUS:: Miguel is sitting up in bed when meets with him. His is present in the room. Miguel is pleasant and talkative. Miguel was recently discharged from [facility] on 03/20/2019 but after falling at home yesterday, he was forced to return to the hospital. He talks about his struggles at home while his was at work and shares openly about financial concerns and having to make the difficult choice of either buying his medications or doing without something else. He also discusses his inability to cook for himself, his fall in the bathroom, and inability to clean up after himself. Miguel states he also struggles with taking his medications as directed because some of his meds are blister packed while others are in pill bottles. With the assistance of his , Miguel puts all of the pills into a pill box but errors are sometimes made and the medication is placed incorrectly into the pill box. ADVANCE DIRECTIVES:: None on file. Has patient been provided with information about the portal?: No Did the patient sign up for the portal?: No CODE STATUS:: Full Code INSURANCE COVERAGE / FINANCIAL ISSUES:: Medicare, AARP. CURRENT HOME/COMMUNITY SERVICES/EQUIPMENT:: CPAP/BIPAP? Electric scooter, cane, Electric wheelchair, FWW, shower chair, in addition to Home Health nursing, PT, OT, and LOAN SERVICING OFFICER. PRIMARY CARE PHYSICIAN:: Korin Florian MD POTENTIAL DISCHARGE NEEDS:: Increased services at home vs SNF. PATIENT/FAMILY EDUCATION NEEDS:: Review of discharge instructions, limitations, including Ask Me Three. ANTICIPATED BARRIERS TO DISCHARGE:: None identified at this time. TRANSPORTATION:: To be determined by disposition and mobility. PLAN:: Miguel will continue to be closely monitored and treated at this time. CM briefly discussed SNF placement with patient as an alternative to returning home upon discharge. CM will continue to support patient and discharge planning consideration. Readmission - Within the Past 30 Days Yes or No: Y - Date of First Admission Date of 1st Admission: 03/05/19 - Date of this Admission Date of Admission: 03/22/19 This admission was: Through ED - Office Visit Since 1st Admission Have you seen your PCP in the office since discharge?: No Had an appointment Been Scheduled?: Yes Date of Scheduled Appointment: 03/23/2019 - Speicalist Appointments Have you seen any other specialist since your 1st Admission?: No - I. Interview patient and/or Family Difficulty reaching your doctor or getting an office appt?: No Have you had trouble purchasing/ or taking medication?: Yes Describe barriers fpr purchasing or taking medication: Patient states he has to make a choice between purchasing his medication or buying something else he needs on a monthly basis. He also states that some of his medications are blister packed, while others come in pill bottles and this is at times confusing. How do you take your medications and set up your pills?: With the assistance of his spouse, Miguel removes the pills from the blister pack and places them in a pill box. He then adds the pills out of the pill bottles to the pill box. He states he finds doing this confusing at times and this results in pills being put in the pill box incorrectly. Have you had trouble with getting meals at home?: Yes Describe your typical meals since you have been home: Patient had cereal for breakfast. He did not eat lunch until his returned home from work at 3:00 pm as he was unable to prepare food. Patient is a diabetic and needs to eat regularly. Did you feel ready for discharge when you left the last time: Yes Were services received that you thought were set up on disch: Yes What services were received?: Home Health nursing. Did you call your physician beore you came to the ED?: No Did your physician tell you to come in?: No How do you think you became sick enough to come back?: Patient reports difficulty with eye sight and balance at home with subsequent fall in the bathroom. - If the patient had a VNA ordered Did the patient have a VNA order?: Yes Did you call the VNA before you came?: No (VNA nurse present at the home.) Did the VNA tell you to come to the hospital?: Yes Do you know if the VNA called your physician?: No - Ask the Care Team Members: What do you think caused the patient to be readmitted: Patient and family did not fully understand medication administration as prescribed. His prednisone was not taken at the correct dose which may have contributed to his weakness and subsequent fall. Home Health was at the home for their initial assessment at the time of the fall, so had been unable to address his medication plan. - ED visits How many ED visits in the past 12 months: 2 - Assessment for Readmission Summary of readmission circumstances, based upon interviews: Patient was discharged with a prednisone taper that he and his did not fully understand. This was not apparent before he left the hospital.
[2019-03-23] MEDS: Calcitonin-Salmon, Synthetic 3.7 ML BTL NS (09:04)
[2019-03-23] MEDS: methylPREDNISolone 4 MG TAB 20 MG PO (09:05)
[2019-03-23 10:11] LABS: Lactate 2.5 mmol/L (0.6-1.4)
[2019-03-23 10:16] LABS: Abs Immature Grans 0.03 k/cumm (0.0-0.09); Absolute Eosinophil Count 0.04 k/cumm (0.0-0.7); Absolute Lymphocyte Count 0.83 k/cumm (1.2-3.4); Absolute Monocyte Count 0.25 k/cumm (0.11-0.7); Absolute Neutrophil Count 8.18 k/cumm (1.2-6.7); Eosinophils % 0.4; HCT 34.9 % (40.0-50.0); Immature Grans % 0.3; Lymphocytes % 8.9; Mean Corp. HGB Concentration 31.5 g/dL (32.0-36.0); Mean Corpuscular Hemoglobin 30.9 pg (27.0-33.0); Mean Platelet Volume 11.6 fL (8.0-11.0); Monocytes % 2.7; Neutrophils % 87.7; Platelet Count 255 x1000/uL (130-400); RBC 3.56 m/cumm (4.50-6.00); RBC Distribution Width 16.9 % (11.8-14.1); White Blood Cell Count 9.33 k/cumm (4.4-10.8)
[2019-03-23 10:18] LABS: Anion Gap 8.9 mmol/L (3-11); BUN 36 mg/dL (7-18); CO2 21.1 mmol/L (21.0-32.0); CREATININE 1.16 mg/dL (0.70-1.30); Calcium 8.8 mg/dL (8.5-10.1); Chloride 104 mmol/L (98-107); Glucose 262 mg/dL (70-100); Magnesium 1.8 mg/dL (1.8-2.4); Potassium 5.2 mmol/L (3.5-5.1); Sodium 134 mmol/L (136-145)
[2019-03-23 10:30] LABS: INR 2.6 (0.9-1.1); Prothrombin Time 25.1 sec (9.3-11.0)
[2019-03-23] MEDS: amLODIPine 5 MG TAB PO (10:43)
[2019-03-23] MEDS: Normal Saline Flush 10 ML SYR IVP ×2 (10:44→17:32)
--- NOTE | 2019-03-23 12:51 | IN_ITS ---
Date of service: 03/23/19 Time of Service: 09:38 PT Notes Inpatient Physical Therapy Evaluation Date: 03/23/2019 Referring Doctor: Kirill Mtz MD PT Orders: PT CONSULT: Non-urgent Precautions: Fall. Standard. Activity as tolerated. Patient Profile/Admitting Diagnosis: Patient is a 73-year-old male with past medical history significant for chronic vertigo as well as RA and Crohn's disease maintained maintained on steroids and immunosuppressive therapy who presented to the ED on 03/22/2019 with chief complaints of general weakness, neck and bilateral shoulder pain, and fall due to weakness. Patient is diagnosed with generalized weakness, fall, suspected interstitial lung disease, type 2 diabetes mellitus. PMHX: Medical History Adrenal insufficiency (Chronic) Benign prostatic hyperplasia (Acute 07/03/15) Coronary artery disease (Chronic) Crohns disease (Chronic) Diabetes mellitus, type II, insulin dependent (Acute) DVT (deep venous thrombosis) (Chronic) Erectile dysfunction of organic origin (Acute 07/03/15) GERD (gastroesophageal reflux disease) GI bleed (Chronic) Graves disease (Acute) Hyperlipidemia (Acute) Hypertension (Chronic) Hypothyroidism (Chronic) Obstructive sleep apnea (Chronic) Peripheral neuropathy (Chronic) Rheumatoid arthritis (Chronic) Sensorineural hearing loss, bilateral (Acute 01/28/15) Stroke (Chronic) 2018 Traumatic compression fracture of T12 thoracic vertebra (Acute) Vitamin B12 deficiency (Acute) Vitamin B6 deficiency (Acute) Vitamin D deficiency (Acute) Social History/Home Situation: Patient lives with his in a private home with no steps to enter his home. Patient has been non-ambulatory for several months now. His works during the day and patient is left alone at home. He has been on and off PT services for low back pain issues, falls, and imapired mobility. Equipment Owned/DME: Electric wheelchair, FWW, SC Subjective: Patient is happy with his current mobility gains and hopes to go home whenever it is the safest. He states that his legs are asleep stating that they are numb. After the walk however, patient felt much better. Objective: General Observation: Bilateral TEDS on. Mental Status: Alert and oriented x 4 Pain: Patient reports mild pain on his back ROM: Right Upper Extremity: Shoulder Flexion WFL. Shoulder abduction WFL. Elbow flexion WFL. Wrist flexion WFL. Functional opening and closing of hand WFL. Left Upper Extremity: Shoulder Flexion WFL. Shoulder abduction WFL. Elbow flexion WFL. Wrist flexion WFL. Functional opening and closing of hand WFL. Right Lower Extremity: Hip flexion WFL. Hip abduction WFL. Knee flexion WFL. Ank le dorsiflexion WFL. Ankle plantarflexion WFL. Left Lower Extremity: Hip flexion WFL. Hip abduction WFL. Knee flexion WFL. Ankle dorsiflexion WFL. Ankle plantarflexion WFL. Strength: Right Upper Extremity: Shoulder flexors 4/5. Shoulder abductors 4/5. Elbow flexors 4/5. Elbow extensors 4/5. Motion Picture Set Up Worker strong. Left Upper Extremity: Shoulder flexors 4/5. Shoulder abductors 4/5. Elbow flexors 4/5. Elbow extensors 4/5. Motion Picture Set Up Worker strong. Right Lower Extremity: Hip flexors 4/5. Hip abductors 5/5. Knee extensors 4/5. Ankle dorsiflexors 5/5. Ankle plantarflexors 5/5. Left Lower Extremity:Hip flexors 4/5. Hip abductors 5/5. Knee extensors 5/5. Ankle dorsiflexors 5/5. Ankle plantarflexors 5/5. Bed Mobility/Transfers: Rolling SBA Supine to sit SBA Sit to supine SBA Sit to stand CGA Stand to sit CGA Bed to chair CGA Chair to bed CGA Gait: Patient is able to tolerate level surface ambulation of 50' with FWW with CGA and wheelchair follow without any standing rests. He was however mildly breathless after the activity. Balance: Static Sitting: Good Dynamic Sitting:Good Static Standing: Fair Dynamic Standing: Fair Special Tests: Mobility Limitations Standardized Measure [facility] AM-PAC 6 clicks Basic Mobility Inpatient Short Form: Raw Score: 20 CMS Score: 36% deficit 4-stage Balance Test: Patient is unable to maintain full tandem stance Assessment: Patient is a 73-year-old male with past medical history significant for chronic vertigo as well as RA and Crohn's disease maintained maintained on steroids and immunosuppressive therapy who presented to the ED on 03/22/2019 with chief complaints of general weakness, neck and bilateral shoulder pain, and fall due to weakness. Patient is diagnosed with generalized weakness, fall, suspected interstitial lung disease, type 2 diabetes mellitus. He previously used an electric wheelchair for ambulation and had a fall recently during a transfer from his bed. He was discharged from this facility most recently with being independent with FWW for short distance ambulation of about 50 feet using the front-wheeled walker. He did not complain of vertigo nor dizziness throughout PT evaluation. His prognosis is good for achieving goals listed below. Patient presents with clinical signs and symptoms consistent with current/admitting diagnoses that have resulted to mobility limitations, gait instability, generalized weakness, and impairment of motor control as demonstrated by the following impairment level findings: 1. Decreased strength to B LE major muscle groups 2. Impaired standing balance 3. Impaired activity tolerance Impairments are contributing to the following functional limitations: 1. Increased dependence with transfers 2. Inability to safely ambulate without assistive device and physical assista nce 3. Increase completion time for mobility ADL performance 4. Increased fall risk 5. Inability to negotiate steps alone safely Patient is assessed as a 52973 high complexity based on the following: History: Patient is a 73-year-old female with past medical history as indicated above. He is diagnosed with generalized weakness, fall, suspected interstitial lung disease, type 2 diabetes mellitus Examination: Demonstrable impairment in strength, balance, and activity tolerance with underlying impairments and functional limitations as documented above Presentation:Evolving Decision Makin high complexity Goals: Goals X1 week 1. Supine-Sit independent 2. Sit-Supine independent 3. Sit-Stand independent 4. Stand-Sit independent 5. Independent with pivot transfer using a 6. Independent with level surface ambulation of at least 300 feet using FWW with no dyspnea nor pain Plan of Care/Treatment Plan: 1-2x/day, 7 days/week x 1 week. Plan of care has been reviewed with the [employer] providing the service under Physical Therapy direction. Initiate Physical Therapy intervention for strengthening, bed mobility, transfers, gait, stairs, balance training, use of assistive device. DISCHARGE RECOMMENDATIONS: Patient is recommended for discharge to home under the care of his . Home health PT/OT services are recommended to address equipment needs and perform a home safety assessment. TREATMENT CODE/TIME: 36069 x 25 minutes beginning at 9:38 AM. Thank you very much for this referral. Nadia Mccormick PT, DPT, CLT [facility]
[2019-03-23 15:50] VITALS: BP 115/68; PULSE 95; RESP 20; TEMP 36.6; O2SAT 96
--- NOTE | 2019-03-23 15:58 | PT.INTREAT ---
Date of service: 03/23/19 Time of Service: 15:58 PT Notes Inpatient Physical Therapy Treatment Note [facility] Date: 03/23/19 PRECAUTIONS: Fall SUBJECTIVE: Sonido is pleasant and agreeable to participating in PT. Although he does indicate that he is unsure how much he will be able to participate due to his back/LE pain. OBJECTIVE: PAIN: Patient c/o back and LE pain with gait training BED MOBILITY/TRANSFERS Sit-stand: SBA Stand-sit: SBA GAIT Assistive Device: FWW Weight bearing: Full Assist: CGA Distance: 60' x2 Deviation: Cueing for posture, back/LE pain, SOB, seated rest ASSESSMENT: Patient tolerated session with complaints of increased back and lower extremity pain with gait training. He was able to tolerate a progression in gait distance, although required CGA and cueing for posture, he also requires seated rest due to SOB and back/LE pain. Patient would benefit from continued gait and transfer training as well as strengthening. Improved activity tolerance. PLAN: Continue with PTs POC TREATMENT CODE/TIME: 20 minutes; 72211
[2019-03-23 16:51] VITALS: O2SAT 98
--- NOTE | 2019-03-23 17:21 | W.PM.PROGNOT ---
Date of Service Date of service: 03/23/19 Time of Service: 17:21 Assessment and Plan Assessment and plan (1) Weakness: Status: Acute Assessment and plan: Recurrence of weakness and falls - however, this time without concurrent fevers or hypoxia. Current work-up remains negative for infection. - Possibility for dehydration as cause - patient was diuresed prior to discharge, with blood pressure so far responsive to fluid resuscitation. Continue IVF's. - Antihypertensive therapy initially held for hypotension, now being reinitiated - see below. - Patient also displayed evidence of weakness, fatigue, falls, and hypotension, with reported lack of steroid taper as prescribed. Question possible adrenal insufficiency as cause. Will ensure stress dosed steroids. Patient reports improved symptoms today, and has participated in physical therapy. (2) ILD (interstitial lung disease): Status: Suspected Assessment and plan: Previously with evidence of hypoxia, fever, and pulmonary abnormalities by imaging with CT in immunosuppressed patient - repeat CT also reviewed by Pulm. Abnormalities deemed to be likely ILD, potentially on the basis of RA or use of immunosuppressants, with superimposed infection. PJP thought unlikely based on review of imaging and history by ID and Pulm. Currently appears to be non-hypoxic, with CXR showing no acute abnormalities. Also, with reported dyspnea that is approaching chronic, ongoing for months, lending further credence to potential for underlying ILD. Currently not hypoxic, with breathing at baseline. - Will ensure follow-up with pulm - already scheduled for next month at [facility]. Monitor respiratory symptoms closely. (3) PRISCILLA (acute kidney injury): Status: Resolved Assessment and plan: In setting of poor PO intake, possible adrenal inssuficiency. Likely pre-renal in etiology. Was maintained on fluid resuscitation, with normalized creatinine. Mildly elevated Potassium - will repeat BMP this evening to ensure stability. (4) Hypertension: Status: Chronic Assessment and plan: Restart CCB, continue to hold Spironolactone in setting of prior hypotension. Monitor BP. (5) Diabetes mellitus, type II, insulin dependent: Status: Acute Assessment and plan: Will continue decreased insulin as inpatient due to hypoglycemic episodes during last hospital stay. As expected, blood sugars are elevating with increase in steroids - will need titration of Insulin. Continue sliding scare coverage, and maintain on ADA diet. (6) Coronary artery disease: Status: Chronic Assessment and plan: Underlying CAD in the setting of chronic inflammatory processes with RA and Crohn's Disease. Reportedly with 5 prior WA's, s/p multiple stents (Documented 7 by review of cardiology notes). Appears asymptomatic currently. - Continue statin, prn NTG. Does not appear to be on daily ASA or BB. (7) Obstructive sleep apnea: Status: Chronic Assessment and plan: Continue CPAP. (8) Crohns disease: Status: Chronic Assessment and plan: On Humira, Mesalamine. Patient also has a history of RA, maintained on Leflunomide as well. (9) CVA (cerebral vascular accident): Status: Chronic Assessment and plan: History of prior strokes, with evidence of old bilateral lacunar infarcts present on CT. The patient is on daily anticoagulation and statin therapy, needs optimization of his comorbidities. He likely remains at high risk given his overall history and age. (10) DVT prophylaxis: Status: Acute Assessment and plan: On chronic anticoagulation with warfarin due to a history of DVTs. Monitor daily INR. Currently therapeutic. (11) Advance directive on file: Status: Acute Assessment and plan: DNR/DNI. Subjective Subjective Interval history since last seen: 73-year-old man with past medical history significant for as well as RA and Crohn's Disease maintained chronically on immunosuppressive and steroid therapy, recently discharged from [facility], readmitted from the Emergency Department on 03/22 with a diagnosis of weakness and falls. Mr. Padilla has a past Medical History significant for RA and Crohn's disease, maintained on daily steroids and immunosuppressive therapy. He also has a significant cardiac history, with multiple MIs in the past with reported 7 stents - His last stress test in 2017 showed a fixed defect. His other history includes DM, HTN, dyslipidemia, hypothyroidism, FRANCIE on CPAP therapy, ED s/p penile implant, prior CVA, moderate AI, depression, hx DVT on AC with coumadin, and MGUS. He also has noted seizure disorder, manifested by headache and transient speech difficulties. He has back pain secondary to a herniated disc in his lumbar region. 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 Ya of neurology back in September of this year. He was also noted to have gait imbalance that was deemed multifactorial in the setting of vertigo, orthostatic hypotension, and significant neuropathy. The patient was hospitalized between 03/05 - 03/20 at [facility], treated for likely ILD with superimposed infection, and volume overload in the setting of fluid resuscitation for hypotension and PRISCILLA. He was discharged after completion of antibiotic therapy, and prescribed a steroid taper to slowly return to his baseline dose. Upon return home Mr. Padilla reports onset of recurrence of fatigue and weakness, and reports falls at home. Upon initial evaluation he was noted to be significantly hypotensive, with pressures seen but not recorded as low as in the 70's systolic. He was afebrile and with oxygen saturation between 97-99% on room air. Blood work was remarkable for a lack of leukocytosis, unchanged mild anemia, therapeutic INR, and worsening renal function with evidence of an PRISCILLA. His lactate was also elevated, but with a negative troponin. Imaging with CXR showed no acute abnormality, and CT of CSpine was negative as well. He was referred for admission for further evaluation and treatment. Following admission Mrs. Padilla admitted that she was not aware of the increase in her 's steroid dose at the time of his discharge, and had been giving him lower doses of Methylprednisolone than advised. He was treated with stress dosed steroids, and this morning reports improvement in his symptoms overall, and blood pressure appears improved as well. Lactate remains mildly elevated but unchanged. The patient reports baseline dyspnea, unchanged and ongoing for 'months', but not worsened. Also complaining of chronic back pain. No overnight events reported. Remains afebrile. Exam Narrative Exam Narrative: General: Patient appears comfortable, AAOX3, NAD Neck: Supple CV: Regular, nontachycardic, S1S2, No rubs, murmurs, or gallops. Pulmonary: Small area of crackles in the left lateral base, unchanged from prior exam, with a smaller area on the right also unchanged. Otherwise Clear to auscultation Abdomen: + Bowel Sounds, soft, nontender, nondistended Vascular: No lower extremity edema Psych: Normal mood and affect. Objective Objective Clinical Data: Abnormal lab results 03/22/19 03/23/19 03/23/19 Range/Units 20:30 10:01 10:01 RBC (4.50-6.00) m/cumm Hgb (13.5-17.5) g/dL Hct (40.0-50.0) % MCV (80-95) fL MCHC (32.0-36.0) g/dL RDW (11.8-14.1) % MPV (8.0-11.0) fL Absolute Neutrophils (1.2-6.7) k/cumm Absolute Lymphocytes (1.2-3.4) k/cumm PT 25.1 H (9.3-11.0) sec INR 2.6 H (0.9-1.1) Sodium (136-145) mmol/L Potassium (3.5-5.1) mmol/L BUN (7-18) mg/dL Glucose (70-100) mg/dL Lactate 2.5 H* (0.6-1.4) mmol/L Urine Glucose 500 H (Negative) mg/dL 03/23/19 03/23/19 Range/Units 10:01 10:01 RBC 3.56 L (4.50-6.00) m/cumm Hgb 11.0 L (13.5-17.5) g/dL Hct 34.9 L (40.0-50.0) % MCV 98.0 H (80-95) fL MCHC 31.5 L (32.0-36.0) g/dL RDW 16.9 H (11.8-14.1) % MPV 11.6 H (8.0-11.0) fL Absolute Neutrophils 8.18 H (1.2-6.7) k/cumm Absolute Lymphocytes 0.83 L (1.2-3.4) k/cumm PT (9.3-11.0) sec INR (0.9-1.1) Sodium 134 L (136-145) mmol/L Potassium 5.2 H (3.5-5.1) mmol/L BUN 36 H (7-18) mg/dL Glucose 262 H (70-100) mg/dL Lactate (0.6-1.4) mmol/L Urine Glucose (Negative) mg/dL Vital Signs Temperature 36.6 C 03/23/19 15:50 Temperature Source Tympanic 03/23/19 15:50 Pulse 95 H 03/23/19 15:50 Pulse Rhythm Regular 03/23/19 09:00 Respiratory Rate 20 03/23/19 15:50 Respiratory Effort Non-Labored 03/23/19 09:00 Respiratory Depth Normal 03/23/19 09:00 Respiratory Pattern Normal 03/23/19 09:00 Blood Pressure 115/68 03/23/19 15:50 Pulse Oximetry 98 03/23/19 16:51 Oxygen Delivery Method Room Air 03/23/19 16:51 Oxygen Flow Rate 0 03/23/19 16:51 Pain Level 0 03/23/19 15:50 Comment 03/23/19 08:00 Intake & Output 03/22/19 03/23/19 03/23/19 23:59 11:59 23:59 Intake Total 750 / 750 1590 / 2330 740 / 2330 Output Total 600 / 600 650 / 1000 350 / 1000 Balance 150 / 150 940 / 1330 390 / 1330 Weight 87.2 kg Intake: IV 750 / 750 1100 / 1120 20 / 1120 Oral 490 / 1210 720 / 1210 Output: Urine 600 / 600 650 / 1000 350 / 1000 Other: Urine Color Yellow Yellow Yellow Urine Appearance Clear Clear Clear Urine Odor Normal Normal Voiding Methods Urinal Urinal Urinal Laboratory Results WBC 9.33 k/cumm (4.4-10.8) 03/23/19 10:01 RBC 3.56 m/cumm (4.50-6.00) L 03/23/19 10:01 Hgb 11.0 g/dL (13.5-17.5) L 03/23/19 10:01 Hct 34.9 % (40.0-50.0) L 03/23/19 10:01 MCV 98.0 fL (80-95) H 03/23/19 10:01 MCH 30.9 pg (27.0-33.0) 03/23/19 10:01 MCHC 31.5 g/dL (32.0-36.0) L 03/23/19 10:01 RDW 16.9 % (11.8-14.1) H 03/23/19 10:01 Plt Count 255 x1000/uL (130-400) 03/23/19 10:01 MPV 11.6 fL (8.0-11.0) H 03/23/19 10:01 Immature Gran % 0.3 03/23/19 10:01 Neutrophils % 87.7 03/23/19 10:01 Lymphocytes % 8.9 03/23/19 10:01 Monocytes % 2.7 03/23/19 10:01 Eosinophils % 0.4 03/23/19 10:01 Basophils % 0.0 03/23/19 10:01 Absolute Neutrophils 8.18 k/cumm (1.2-6.7) H 03/23/19 10:01 Absolute Lymphocytes 0.83 k/cumm (1.2-3.4) L 03/23/19 10:01 Absolute Monocytes 0.25 k/cumm (0.11-0.7) 03/23/19 10:01 Absolute Eosinophils 0.04 k/cumm (0.0-0.7) 03/23/19 10:01 Absolute Basophils 0.00 k/cumm (0.0-0.2) 03/23/19 10:01 PT 25.1 sec (9.3-11.0) H 03/23/19 10:01 INR 2.6 (0.9-1.1) H 03/23/19 10:01 APTT 25.1 sec (21.0-31.4) 03/22/19 12:50 Sodium 134 mmol/L (136-145) L 03/23/19 10:01 Potassium 5.2 mmol/L (3.5-5.1) H 03/23/19 10:01 Chloride 104 mmol/L (98-107) 03/23/19 10:01 Carbon Dioxide 21.1 mmol/L (21.0-32.0) 03/23/19 10:01 Anion Gap 8.9 mmol/L (3-11) 03/23/19 10:01 BUN 36 mg/dL (7-18) H 03/23/19 10:01 Creatinine 1.16 mg/dL (0.70-1.30) 03/23/19 10:01 Estimated GFR/1.73 m2 >= 60.00 (mL/min/1.73m2) 03/23/19 10:01 Glucose 262 mg/dL (70-100) H 03/23/19 10:01 Lactate 2.5 mmol/L (0.6-1.4) H* 03/23/19 10:01 Calcium 8.8 mg/dL (8.5-10.1) 03/23/19 10:01 Magnesium 1.8 mg/dL (1.8-2.4) 03/23/19 10:01 Total Bilirubin 0.5 mg/dL (0.2-1.0) 03/22/19 12:50 AST 25 U/L (15-37) 03/22/19 12:50 ALT 65 U/L (16-63) H 03/22/19 12:50 Alkaline Phosphatase 67 U/L (46-116) 03/22/19 12:50 Troponin I < 0.05 ng/mL (0.00-0.06) 03/22/19 12:50 Total Protein 7.0 g/dL (6.4-8.2) 03/22/19 12:50 Albumin 3.0 g/dL (3.4-5.0) L 03/22/19 12:50 Urine Color Yellow (Yellow) 03/22/19 20:30 Urine Clarity Clear (Clear) 03/22/19 20:30 Urine pH 5.0 (5-8) 03/22/19 20:30 Ur Specific Ecru 1.020 (1.005-1.025) 03/22/19 20:30 Urine Protein Negative mg/dL (Negative) 03/22/19 20:30 Urine Ketones Negative mg/dL (Negative) 03/22/19 20:30 Urine Blood Negative (Negative) 03/22/19 20:30 Urine Nitrite Negative (Negative) 03/22/19 20:30 Urine Bilirubin Negative (Negative) 03/22/19 20:30 Urine Urobilinogen 0.2 EU/dL (Up TO 0.2) 03/22/19 20:30 Ur Leukocyte Esterase Negative (Negative) 03/22/19 20:30 Urine Glucose 500 mg/dL (Negative) H 03/22/19 20:30
[2019-03-23] MEDS: oxyCODONE 5 MG TAB PO (18:06)
[2019-03-23 19:48] LABS: Anion Gap 10.2 mmol/L (3-11); BUN 40 mg/dL (7-18); CO2 18.8 mmol/L (21.0-32.0); CREATININE 1.34 mg/dL (0.70-1.30); Calcium 8.5 mg/dL (8.5-10.1); Chloride 103 mmol/L (98-107); Estimated GFR 52.11 (mL/min/1.73m2); Glucose 337 mg/dL (70-100); Potassium 5.7 mmol/L (3.5-5.1); Sodium 132 mmol/L (136-145)
[2019-03-23] MEDS: Rosuvastatin 10 MG TAB 40 MG PO (21:32)
[2019-03-23 23:43] VITALS: BP 132/71; PULSE 69; RESP 16; TEMP 36.6; O2SAT 97
[2019-03-24] MEDS: Normal Saline Flush 10 ML SYR IVP ×4 (01:25→19:58)
[2019-03-24] MEDS: Hydrocortisone SOD SUC. 100 MG VIAL 50 MG IVP ×3 (01:25→18:32)
[2019-03-24] MEDS: Levothyroxine 150 MCG TAB PO (05:38)
[2019-03-24 07:28] LABS: Abs Immature Grans 0.02 k/cumm (0.0-0.09); Absolute Eosinophil Count 0.02 k/cumm (0.0-0.7); Absolute Lymphocyte Count 0.75 k/cumm (1.2-3.4); Absolute Monocyte Count 0.28 k/cumm (0.11-0.7); Absolute Neutrophil Count 6.56 k/cumm (1.2-6.7); Eosinophils % 0.3; HCT 29.9 % (40.0-50.0); HGB 9.6 g/dL (13.5-17.5); Immature Grans % 0.3; Lymphocytes % 9.8; Mean Corp. HGB Concentration 32.1 g/dL (32.0-36.0); Mean Corpuscular Hemoglobin 31.6 pg (27.0-33.0); Mean Corpuscular Volume 98.4 fL (80-95); Mean Platelet Volume 11.5 fL (8.0-11.0); Monocytes % 3.7; Neutrophils % 85.9; Platelet Count 184 x1000/uL (130-400); RBC 3.04 m/cumm (4.50-6.00); RBC Distribution Width 16.7 % (11.8-14.1); White Blood Cell Count 7.63 k/cumm (4.4-10.8)
[2019-03-24 07:30] LABS: Lactate 2.8 mmol/L (0.6-1.4)
[2019-03-24 07:34] LABS: INR 2.6 (0.9-1.1); Prothrombin Time 25.2 sec (9.3-11.0)
[2019-03-24 07:39] LABS: Anion Gap 7.7 mmol/L (3-11); BUN 35 mg/dL (7-18); CO2 23.3 mmol/L (21.0-32.0); Calcium 8.7 mg/dL (8.5-10.1); Chloride 106 mmol/L (98-107); Glucose 183 mg/dL (70-100); Magnesium 1.9 mg/dL (1.8-2.4); Potassium 4.8 mmol/L (3.5-5.1); Sodium 137 mmol/L (136-145)
[2019-03-24 07:48] VITALS: BP 147/83; PULSE 63; RESP 19; TEMP 36.7; O2SAT 99
[2019-03-24] MEDS: Tamsulosin 0.4 MG CAPCR PO (08:09)
[2019-03-24] MEDS: Calcium 600mg/Vit D 200U TAB 2 TAB PO (08:09)
[2019-03-24] MEDS: FLUoxetine 10 MG TAB 30 MG PO (08:09)
[2019-03-24] MEDS: Liothyronine 5 MCG TAB PO (08:10)
[2019-03-24] MEDS: buPROPion-XL 150 MG TABCR PO (08:10)
[2019-03-24] MEDS: Lactobacillus Acidophilus CAP 1 CAP PO ×3 (08:10→19:57)
[2019-03-24] MEDS: Pantoprazole 40 MG TABCR PO ×2 (08:11→19:56)
[2019-03-24] MEDS: Folic Acid 1 MG TAB PO (08:11)
[2019-03-24] MEDS: methylPREDNISolone 4 MG TAB 20 MG PO (08:11)
[2019-03-24] MEDS: amLODIPine 5 MG TAB PO (08:11)
[2019-03-24] MEDS: Docusate Sodium 100 MG CAP PO (08:11)
[2019-03-24] MEDS: Cholecalciferol (Vitamin D3) 1,000 UNIT TAB 2000 UNITS PO (08:11)
[2019-03-24] MEDS: Finasteride 5 MG TAB PO (08:11)
[2019-03-24] MEDS: Insulin Aspart 300 UNITS/3 ML PEN SC ×3 (08:12→17:12)
[2019-03-24] MEDS: Calcitonin-Salmon, Synthetic 3.7 ML BTL NS (08:13)
[2019-03-24] MEDS: Fluticasone NASAL SPRAY 16 GM BTL NS (08:51)
[2019-03-24] MEDS: oxyCODONE 5 MG TAB PO ×3 (09:00→19:57)
[2019-03-24 11:26] VITALS: BP 115/71; PULSE 103; RESP 21; TEMP 36.9; O2SAT 91
[2019-03-24 11:31] VITALS: RESP 1; RESP 18; RESP 8; O2SAT 91
[2019-03-24] MEDS: Albuterol/Ipratropium 3 ML UPD VIAL UPD (11:31)
--- NOTE | 2019-03-24 11:31 | PTTR_ITS ---
Date of service: 03/24/19
--- NOTE | 2019-03-24 11:31 | PT.INTREAT ---
Date of service: 03/24/19
--- NOTE | 2019-03-24 11:34 | PT.INTREAT ---
Date of service: 03/24/19 Time of Service: 11:00 PT Notes Inpatient Physical Therapy Treatment Note [facility] Date: 03/24/19 SUBJECTIVE: Pt feels like he is going bkwds due to back pain. He also states that the pain increases his SOB. OBJECTIVE: [] PAIN: LBP that he rates at 7/10 BED MOBILITY/TRANSFERS Sit-stand: SBA Stand-sit: SBA GAIT Assistive Device: FWW Weight bearing: full Assist: CGA Distance: 60'x2 Deviation: 1 seated rest break. ASSESSMENT: tolerated session well, despite c/o LBP. He seems frustrated with with lack of pain control which increases SOB. PLAN: continue to progress his general conditioning and functional mobility per established goals. TREATMENT CODE/TIME: 20 min. [id number].
--- NOTE | 2019-03-24 13:02 | CMPROGNOTE_ITS ---
- If Service Date Differs Date of service: 03/24/19 Time of Service: 13:02 Care Management Progress Note S/O: Miguel is sitting on the side of his bed when CM meets with him. He is pleasant and easily engages in conversation. His youngest daughter and her partner are present in the room. CM spends some time discussing the [facility] with family, as daughter expresses concerns over her father being home alone and needing additional supports. We also discuss a SNF placement which Miguel is opposed to at this time. CM will continue to follow. A: Miguel is a 73 year old male readmitted to [facility] on 03/22/2019 for generalized weakness, fall at home, hypotension, and dehydration. P: Miguel will be discharged home when medically cleared by provider with resumption of Home Health nursing, PT, and OT. Referrals are faxed to for the [facility] Program and to the [place] [facility] for Meals on Wheels today. CM will continue to follow and support discharge planning considerations.
[2019-03-24] MEDS: Acetaminophen 325 MG TAB PO ×2 (15:28→19:54)
[2019-03-24 15:47] VITALS: BP 120/64; PULSE 81; RESP 18; TEMP 36.7; O2SAT 98
--- NOTE | 2019-03-24 17:20 | W.PM.PROGNOT ---
Date of Service Date of service: 03/24/19 Time of Service: 17:21 Assessment and Plan Assessment and plan (1) Adrenal insufficiency: Status: Acute Assessment and plan: The likely reason for patient's presentation on this admission - evidently, he did not take his steroid taper as prescribed on discharge. Seems to be improving with stress dose steroids, but I do not believe he is ready for the steroid dose to be decreased today - will reassess tomorrow. (2) Left hip pain: Status: Acute Assessment and plan: Titrate oxycodone to adequate pain control. Will discuss with nursing re timing it next to his PT session. (3) ILD (interstitial lung disease): Status: Suspected Assessment and plan: Will monitor respiratory status. He certainly is a set up for ILD. Pulmonary follow up already arranged as outpatient. (4) PRISCILLA (acute kidney injury): Status: Resolved Assessment and plan: In setting of poor PO intake, possible adrenal inssuficiency. Likely pre-renal in etiology. Improved. Not on IVF at this time - consider gentle fluids if LA still elevated tomorrow or Cr worsens. (5) Hypertension: Status: Chronic Assessment and plan: Continue CCB, continue to hold Spironolactone. Monitor BP. (6) Diabetes mellitus, type II, insulin dependent: Status: Acute Assessment and plan: Add HS insulin; continue am long acting at current dose. Continue sliding scare coverage, and maintain on ADA diet. (7) Coronary artery disease: Status: Chronic Assessment and plan: h/o CAD in setting of RA and Crohn's Disease. Reportedly with 5 prior LA's, s/p multiple stents (Documented 7 by review of cardiology notes). No evidence of ACS at this time. - Continue statin, prn NTG. Does not appear to be on daily ASA or BB. (8) Obstructive sleep apnea: Status: Chronic Assessment and plan: Continue CPAP. (9) Crohns disease: Status: Chronic Assessment and plan: On Humira, Mesalamine. Patient also has a history of RA, maintained on Leflunomide as well. (10) CVA (cerebral vascular accident): Status: Chronic Assessment and plan: History of prior strokes, with evidence of old bilateral lacunar infarcts present on CT. The patient is on daily anticoagulation and statin therapy, needs optimization of his comorbidities. He likely remains at high risk given his overall history and age. (11) Lactic acidosis: Status: Acute Assessment and plan: Recheck in am - if still abnormal, resume gentle hydration (12) DVT prophylaxis: Status: Acute Assessment and plan: On therapeutic coumadin (13) Discharge planning issues: Status: Acute Assessment and plan: Full code Patient does not wish to go to SNF at this time, but needs supervision at home when is working. Subjective Subjective Interval history since last seen: Complains of L hip pain which is what his biggest reason for the fall was, per patient, and which seems to have gotten better with tylenol and oxycodone earlier today. He denies dizziness, chest pain, states his breathing is better than when we last saw each other, but he still really needed the updraft this morning. Has a minimal cough. Denies nausea/vomiting. Exam Narrative Exam Narrative: General: very pleasant elderly male, A&OX3, comfortable in bed, but does look weaker than when I last saw him HEENT: EOMI, MMM Heart: RRR, no m/r/g Lungs: Diminished breath sounds B GI: abdomen is soft, nontender, nondistended Extremities: no e/c/c BLE's Objective Objective Clinical Data: Abnormal lab results 03/23/19 03/24/19 03/24/19 Range/Units 19:35 07:15 07:15 RBC (4.50-6.00) m/cumm Hgb (13.5-17.5) g/dL Hct (40.0-50.0) % MCV (80-95) fL RDW (11.8-14.1) % MPV (8.0-11.0) fL Absolute Lymphocytes (1.2-3.4) k/cumm PT 25.2 H (9.3-11.0) sec INR 2.6 H (0.9-1.1) Sodium 132 L (136-145) mmol/L Potassium 5.7 H (3.5-5.1) mmol/L Carbon Dioxide 18.8 L (21.0-32.0) mmol/L BUN 40 H 35 H (7-18) mg/dL Creatinine 1.34 H (0.70-1.30) mg/dL Glucose 337 H 183 H D (70-100) mg/dL Lactate (0.6-1.4) mmol/L 03/24/19 03/24/19 Range/Units 07:15 07:15 RBC 3.04 L (4.50-6.00) m/cumm Hgb 9.6 L (13.5-17.5) g/dL Hct 29.9 L (40.0-50.0) % MCV 98.4 H (80-95) fL RDW 16.7 H (11.8-14.1) % MPV 11.5 H (8.0-11.0) fL Absolute Lymphocytes 0.75 L (1.2-3.4) k/cumm PT (9.3-11.0) sec INR (0.9-1.1) Sodium (136-145) mmol/L Potassium (3.5-5.1) mmol/L Carbon Dioxide (21.0-32.0) mmol/L BUN (7-18) mg/dL Creatinine (0.70-1.30) mg/dL Glucose (70-100) mg/dL Lactate 2.8 H* (0.6-1.4) mmol/L Vital Signs Temperature 36.7 C 03/24/19 15:47 Temperature Source Tympanic 03/24/19 15:47 Pulse 81 03/24/19 15:47 Pulse Rhythm Irregular 03/24/19 16:53 Respiratory Rate 18 03/24/19 15:47 Respiratory Effort Non-Labored 03/24/19 16:53 Respiratory Depth Normal 03/24/19 16:53 Respiratory Pattern Normal 03/24/19 16:53 Blood Pressure 120/64 03/24/19 15:47 Pulse Oximetry 98 03/24/19 15:47 Oxygen Delivery Method Room Air 03/24/19 15:47 Oxygen Flow Rate 0 03/24/19 15:47 Fraction of Inspired Oxygen (FIO2) 21 03/24/19 05:35 Pain Level 7 03/24/19 16:29 Comment 03/23/19 08:00 Intake & Output 03/23/19 03/24/19 03/24/19 23:59 11:59 23:59 Intake Total 760 / 2350 480 / 500 20 / 500 Output Total 950 / 1600 700 / 900 200 / 900 Balance -190 / 750 -220 / -400 -180 / -400 Intake: IV 40 / 1140 20 / 20 Oral 720 / 1210 480 / 480 Output: Urine 950 / 1600 700 / 900 200 / 900 Other: Urine Color Yellow Yellow Yellow Urine Appearance Clear Clear Clear Urine Odor Sweet Normal Normal Stool Size Moderate Stool Characteristics Soft Voiding Methods Urinal Urinal Urinal Laboratory Results WBC 7.63 k/cumm (4.4-10.8) 03/24/19 07:15 RBC 3.04 m/cumm (4.50-6.00) L 03/24/19 07:15 Hgb 9.6 g/dL (13.5-17.5) L 03/24/19 07:15 Hct 29.9 % (40.0-50.0) L 03/24/19 07:15 MCV 98.4 fL (80-95) H 03/24/19 07:15 MCH 31.6 pg (27.0-33.0) 03/24/19 07:15 MCHC 32.1 g/dL (32.0-36.0) 03/24/19 07:15 RDW 16.7 % (11.8-14.1) H 03/24/19 07:15 Plt Count 184 x1000/uL (130-400) 03/24/19 07:15 MPV 11.5 fL (8.0-11.0) H 03/24/19 07:15 Immature Gran % 0.3 03/24/19 07:15 Neutrophils % 85.9 03/24/19 07:15 Lymphocytes % 9.8 03/24/19 07:15 Monocytes % 3.7 03/24/19 07:15 Eosinophils % 0.3 03/24/19 07:15 Basophils % 0.0 03/24/19 07:15 Absolute Neutrophils 6.56 k/cumm (1.2-6.7) 03/24/19 07:15 Absolute Lymphocytes 0.75 k/cumm (1.2-3.4) L 03/24/19 07:15 Absolute Monocytes 0.28 k/cumm (0.11-0.7) 03/24/19 07:15 Absolute Eosinophils 0.02 k/cumm (0.0-0.7) 03/24/19 07:15 Absolute Basophils 0.00 k/cumm (0.0-0.2) 03/24/19 07:15 PT 25.2 sec (9.3-11.0) H 03/24/19 07:15 INR 2.6 (0.9-1.1) H 03/24/19 07:15 APTT 25.1 sec (21.0-31.4) 03/22/19 12:50 Sodium 137 mmol/L (136-145) 03/24/19 07:15 Potassium 4.8 mmol/L (3.5-5.1) 03/24/19 07:15 Chloride 106 mmol/L (98-107) 03/24/19 07:15 Carbon Dioxide 23.3 mmol/L (21.0-32.0) 03/24/19 07:15 Anion Gap 7.7 mmol/L (3-11) 03/24/19 07:15 BUN 35 mg/dL (7-18) H 03/24/19 07:15 Creatinine 1.00 mg/dL (0.70-1.30) 03/24/19 07:15 Estimated GFR/1.73 m2 >= 60.00 (mL/min/1.73m2) 03/24/19 07:15 Glucose 183 mg/dL (70-100) H D 03/24/19 07:15 Lactate 2.8 mmol/L (0.6-1.4) H* 03/24/19 07:15 Calcium 8.7 mg/dL (8.5-10.1) 03/24/19 07:15 Magnesium 1.9 mg/dL (1.8-2.4) 03/24/19 07:15 Total Bilirubin 0.5 mg/dL (0.2-1.0) 03/22/19 12:50 AST 25 U/L (15-37) 03/22/19 12:50 ALT 65 U/L (16-63) H 03/22/19 12:50 Alkaline Phosphatase 67 U/L (46-116) 03/22/19 12:50 Troponin I < 0.05 ng/mL (0.00-0.06) 03/22/19 12:50 Total Protein 7.0 g/dL (6.4-8.2) 03/22/19 12:50 Albumin 3.0 g/dL (3.4-5.0) L 03/22/19 12:50 Urine Color Yellow (Yellow) 03/22/19 20:30 Urine Clarity Clear (Clear) 03/22/19 20:30 Urine pH 5.0 (5-8) 03/22/19 20:30 Ur Specific [place] 1.020 (1.005-1.025) 03/22/19 20:30 Urine Protein Negative mg/dL (Negative) 03/22/19 20:30 Urine Ketones Negative mg/dL (Negative) 03/22/19 20:30 Urine Blood Negative (Negative) 03/22/19 20:30 Urine Nitrite Negative (Negative) 03/22/19 20:30 Urine Bilirubin Negative (Negative) 03/22/19 20:30 Urine Urobilinogen 0.2 EU/dL (Up TO 0.2) 03/22/19 20:30 Ur Leukocyte Esterase Negative (Negative) 03/22/19 20:30 Urine Glucose 500 mg/dL (Negative) H 03/22/19 20:30
[2019-03-24 19:51] VITALS: BP 117/76; PULSE 81; RESP 18; TEMP 36.6; O2SAT 98
[2019-03-24] MEDS: Melatonin 3 MG TAB 9 MG PO (19:53)
[2019-03-24] MEDS: Rosuvastatin 10 MG TAB 40 MG PO (19:55)
[2019-03-25] MEDS: Hydrocortisone SOD SUC. 100 MG VIAL 50 MG IVP ×3 (01:29→18:20)
[2019-03-25] MEDS: Normal Saline Flush 10 ML SYR IVP ×3 (01:29→20:10)
[2019-03-25 03:10] VITALS: BP 121/86; PULSE 76; RESP 18; TEMP 36.8; O2SAT 96
[2019-03-25] MEDS: Levothyroxine 150 MCG TAB PO (06:11)
[2019-03-25 07:11] LABS: Lactate 1.6 mmol/L (0.6-1.4)
[2019-03-25 07:13] LABS: Abs Immature Grans 0.01 k/cumm (0.0-0.09); Absolute Eosinophil Count 0.01 k/cumm (0.0-0.7); Absolute Lymphocyte Count 0.71 k/cumm (1.2-3.4); Absolute Monocyte Count 0.31 k/cumm (0.11-0.7); Absolute Neutrophil Count 5.68 k/cumm (1.2-6.7); Eosinophils % 0.1; HGB 9.5 g/dL (13.5-17.5); Immature Grans % 0.1; Lymphocytes % 10.6; Mean Corp. HGB Concentration 31.7 g/dL (32.0-36.0); Mean Corpuscular Hemoglobin 31.1 pg (27.0-33.0); Mean Corpuscular Volume 98.4 fL (80-95); Mean Platelet Volume 11.4 fL (8.0-11.0); Monocytes % 4.6; Neutrophils % 84.6; Platelet Count 161 x1000/uL (130-400); RBC 3.05 m/cumm (4.50-6.00); RBC Distribution Width 16.6 % (11.8-14.1); White Blood Cell Count 6.72 k/cumm (4.4-10.8)
[2019-03-25 07:24] VITALS: BP 179/83; PULSE 61; RESP 17; TEMP 36.4; O2SAT 99
[2019-03-25 07:24] LABS: Anion Gap 7.9 mmol/L (3-11); BUN 29 mg/dL (7-18); CO2 24.1 mmol/L (21.0-32.0); CREATININE 1.02 mg/dL (0.70-1.30); Calcium 8.5 mg/dL (8.5-10.1); Chloride 105 mmol/L (98-107); Glucose 162 mg/dL (70-100); Magnesium 1.8 mg/dL (1.8-2.4); Potassium 4.6 mmol/L (3.5-5.1); Sodium 137 mmol/L (136-145)
[2019-03-25 07:36] LABS: Prothrombin Time 43.6 sec (9.3-11.0)
[2019-03-25 07:41] LABS: INR 4.5 (0.9-1.1)
[2019-03-25] MEDS: Lactobacillus Acidophilus CAP 1 CAP PO ×3 (07:51→20:08)
[2019-03-25] MEDS: FLUoxetine 10 MG TAB 30 MG PO (07:51)
[2019-03-25] MEDS: Cholecalciferol (Vitamin D3) 1,000 UNIT TAB 2000 UNITS PO (07:52)
[2019-03-25] MEDS: methylPREDNISolone 4 MG TAB 20 MG PO (07:52)
[2019-03-25] MEDS: buPROPion-XL 150 MG TABCR PO (07:52)
[2019-03-25] MEDS: Acetaminophen 325 MG TAB PO (07:53)
[2019-03-25] MEDS: Tamsulosin 0.4 MG CAPCR PO (07:53)
[2019-03-25] MEDS: Liothyronine 5 MCG TAB PO (07:53)
[2019-03-25] MEDS: Calcium 600mg/Vit D 200U TAB 2 TAB PO (07:54)
[2019-03-25] MEDS: Finasteride 5 MG TAB PO (07:54)
[2019-03-25] MEDS: Docusate Sodium 100 MG CAP PO (07:55)
[2019-03-25] MEDS: amLODIPine 5 MG TAB PO (07:55)
[2019-03-25] MEDS: Pantoprazole 40 MG TABCR PO ×2 (07:55→20:09)
[2019-03-25] MEDS: oxyCODONE 5 MG TAB PO (07:55)
[2019-03-25] MEDS: Folic Acid 1 MG TAB PO (07:55)
[2019-03-25] MEDS: Calcitonin-Salmon, Synthetic 3.7 ML BTL NS (07:57)
[2019-03-25] MEDS: Fluticasone NASAL SPRAY 16 GM BTL NS (07:57)
--- NOTE | 2019-03-25 08:21 | CMPROGNOTE_ITS ---
- If Service Date Differs Date of service: 03/25/19 Time of Service: 08:21 Care Management Progress Note S/O:Miguel was sitting up in a chair working on his computer when CM came to see him. He was very pleasant and readily engaged in conversation. CM discussed discharge plans and shared the concern of both his family and staff about his safety when home alone. Finances were also discussed. CM shared that while referrals have been sent for [facility] and [facility], these will take time. The subject of S NF for short term rehab was raised again. Miguel asked good questions and after more conversation, Miguel requested that a referral be sent to [facility]. His nurse Melanie was present for part of the discussion and added some supportive statements regarding his medication management and how a short stay in rehab can help with that as well. He stated that he came to the hospital for help. I'm not stupid he said. I trust that you (meaning the staff at [facility]) know what you're doing and what is best for me. A: Miguel is a 73 year old male readmitted to [facility] on 03/22/2019 for generalized weakness, fall at home, hypotension, and dehydration. P: Miguel has agreed to go to rehab for a short time to gain strength and stabilize his medication management before returning home. He requested that CM send a referral to [facility] and this was done. The referrals for [facility] and [facility] are still appropriate for when he is discharged home. CM will continue to follow and support patient, family and discharge planning considerations.
[2019-03-25 09:50] VITALS: PULSE 83; RESP 1; RESP 18; RESP 8; O2SAT 100
[2019-03-25] MEDS: Albuterol/Ipratropium 3 ML UPD VIAL UPD ×2 (09:50→18:20)
[2019-03-25] MEDS: Insulin Aspart 300 UNITS/3 ML PEN SC ×2 (12:01→17:10)
--- NOTE | 2019-03-25 12:09 | PT.INTREAT ---
Date of service: 03/25/19 PT Notes Inpatient Physical Therapy Treatment Note [facility] Date: 03/25/19 SUBJECTIVE: Miguel states that his pain meds have kicked in. He feels as though the breathing treatment help as well. OBJECTIVE: [] BED MOBILITY/TRANSFERS Sit-stand:SBA Stand-sit: SBA GAIT Assistive Device: FWW Weight bearing: full Assist: CGA Distance: 150' Deviation: 1 standing rest period, due to arm fatigue. ASSESSMENT: tolerated session well. SOB noted towards end of walking session but overall better than yesterday. PLAN: continue progressing established goals. TREATMENT CODE/TIME: 15 min. [id number]
--- NOTE | 2019-03-25 12:26 | PGE_ITS ---
Date of Service Date of service: 03/25/19 Time of Service: 12:26 Assessment and Plan Assessment and plan (1) Adrenal insufficiency: Status: Acute Assessment and plan: Not progressing in the last 24 hours on current dose of stress dose steroids. I wonder how much of the weakness is due to his chronic deconditioning as well. Before making any changes to steroids, will repeat CXR - may require CT of the chest. Agrees to SNF. (2) Left hip pain: Status: Acute Assessment and plan: Titrate oxycodone to adequate pain control. Will discuss with nursing re timing it next to his PT session. (3) ILD (interstitial lung disease): Status: Suspected Assessment and plan: Schedule duonebs and provide prn albuterol. Check CXR - may require repeat CT of the chest. Will monitor respiratory status. He certainly is a set up for ILD. Pulmonary follow up already arranged as outpatient. (4) PRISCILLA (acute kidney injury): Status: Resolved Assessment and plan: In setting of poor PO intake, possible adrenal inssuficiency. Likely pre-renal in etiology. At baseline. LA better - abstain from IVF at this time. (5) Hypertension: Status: Chronic Assessment and plan: Continue CCB, continue to hold Spironolactone. Monitor BP. (6) Diabetes mellitus, type II, insulin dependent: Status: Acute Assessment and plan: BG control better today. Continue current basal bolus insulin with SSI; maintain on ADA diet. (7) Coronary artery disease: Status: Chronic Assessment and plan: h/o CAD in setting of RA and Crohn's Disease. Reportedly with 5 prior ND's, s/p multiple stents (Documented 7 by review of cardiology notes). No evidence of ACS at this time. - Continue statin, prn NTG. Does not appear to be on daily ASA or BB. (8) Obstructive sleep apnea: Status: Chronic Assessment and plan: Continue CPAP. (9) Crohns disease: Status: Chronic Assessment and plan: On Humira, Mesalamine. Patient also has a history of RA, maintained on Leflunomide as well. (10) CVA (cerebral vascular accident): Status: Chronic Assessment and plan: History of prior strokes, with evidence of old bilateral lacunar infarcts present on CT. The patient is on daily anticoagulation and statin therapy, needs optimization of his comorbidities. He likely remains at high risk given his overall history and age. (11) Lactic acidosis: Status: Acute Assessment and plan: Improved. Would not start IVF at this time. 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 (13) Discharge planning issues: Status: Acute Assessment and plan: Full code Agrees to SNF Subjective Subjective Interval history since last seen: Continues to feel weak. Very short of breath this morning - states felt a lot better after his duoneb. Reports his constant dizziness, denies chest pain, nausea. States cough is nonproductive. Agrees to go to subacte rehab. Exam Narrative Exam Narrative: General: very pleasant elderly male, A&OX3, Sitting in a chair having lunch; continues to look weak HEENT: EOMI, MMM Heart: RRR, no m/r/g Lungs: Diminished breath sounds B - worse today GI: abdomen is soft, nontender, nondistended Extremities: trace edema at B ankles; no c/c BLE's Objective Objective Clinical Data: Abnormal lab results 03/25/19 03/25/19 03/25/19 Range/Units 07:08 07:08 07:08 RBC (4.50-6.00) m/cumm Hgb (13.5-17.5) g/dL Hct (40.0-50.0) % MCV (80-95) fL MCHC (32.0-36.0) g/dL RDW (11.8-14.1) % MPV (8.0-11.0) fL Absolute Lymphocytes (1.2-3.4) k/cumm PT 43.6 H D (9.3-11.0) sec INR 4.5 H* D (0.9-1.1) BUN 29 H (7-18) mg/dL Glucose 162 H (70-100) mg/dL Lactate 1.6 H (0.6-1.4) mmol/L 03/25/19 Range/Units 07:08 RBC 3.05 L (4.50-6.00) m/cumm Hgb 9.5 L (13.5-17.5) g/dL Hct 30.0 L (40.0-50.0) % MCV 98.4 H (80-95) fL MCHC 31.7 L (32.0-36.0) g/dL RDW 16.6 H (11.8-14.1) % MPV 11.4 H (8.0-11.0) fL Absolute Lymphocytes 0.71 L (1.2-3.4) k/cumm PT (9.3-11.0) sec INR (0.9-1.1) BUN (7-18) mg/dL Glucose (70-100) mg/dL Lactate (0.6-1.4) mmol/L Vital Signs Temperature 36.4 C L 03/25/19 07:24 Temperature Source Tympanic 03/25/19 07:24 Pulse 83 03/25/19 09:50 Pulse Rhythm Regular 03/25/19 11:03 Respiratory Rate 18 03/25/19 09:50 Respiratory Effort Non-Labored 03/25/19 11:03 Respiratory Depth Normal 03/25/19 11:03 Respiratory Pattern Normal 03/25/19 11:03 Blood Pressure 179/83 H 03/25/19 07:24 Pulse Oximetry 100 03/25/19 09:50 Oxygen Delivery Method Room Air 03/25/19 09:50 Oxygen Flow Rate 0 03/25/19 09:50 Fraction of Inspired Oxygen (FIO2) 21 03/25/19 02:42 Pain Level 7 03/25/19 07:55 Comment 03/23/19 08:00 Intake & Output 03/24/19 03/25/19 03/25/19 23:59 11:59 23:59 Intake Total 30 / 510 750 / 750 Output Total 200 / 900 450 / 450 Balance -170 / -390 300 / 300 Intake: IV 30 / 30 10 Oral 740 / 740 Output: Urine 200 / 900 450 / 450 Other: Urine Color Yellow Yellow Urine Appearance Clear Clear Urine Odor Normal Normal Stool Size Copious Large Stool Characteristics Formed Brown Voiding Methods Urinal Toilet Laboratory Results WBC 6.72 k/cumm (4.4-10.8) 03/25/19 07:08 RBC 3.05 m/cumm (4.50-6.00) L 03/25/19 07:08 Hgb 9.5 g/dL (13.5-17.5) L 03/25/19 07:08 Hct 30.0 % (40.0-50.0) L 03/25/19 07:08 MCV 98.4 fL (80-95) H 03/25/19 07:08 MCH 31.1 pg (27.0-33.0) 03/25/19 07:08 MCHC 31.7 g/dL (32.0-36.0) L 03/25/19 07:08 RDW 16.6 % (11.8-14.1) H 03/25/19 07:08 Plt Count 161 x1000/uL (130-400) 03/25/19 07:08 MPV 11.4 fL (8.0-11.0) H 03/25/19 07:08 Immature Gran % 0.1 03/25/19 07:08 Neutrophils % 84.6 03/25/19 07:08 Lymphocytes % 10.6 03/25/19 07:08 Monocytes % 4.6 03/25/19 07:08 Eosinophils % 0.1 03/25/19 07:08 Basophils % 0.0 03/25/19 07:08 Absolute Neutrophils 5.68 k/cumm (1.2-6.7) 03/25/19 07:08 Absolute Lymphocytes 0.71 k/cumm (1.2-3.4) L 03/25/19 07:08 Absolute Monocytes 0.31 k/cumm (0.11-0.7) 03/25/19 07:08 Absolute Eosinophils 0.01 k/cumm (0.0-0.7) 03/25/19 07:08 Absolute Basophils 0.00 k/cumm (0.0-0.2) 03/25/19 07:08 PT 43.6 sec (9.3-11.0) H D 03/25/19 07:08 INR 4.5 (0.9-1.1) H* D 03/25/19 07:08 APTT 25.1 sec (21.0-31.4) 03/22/19 12:50 Sodium 137 mmol/L (136-145) 03/25/19 07:08 Potassium 4.6 mmol/L (3.5-5.1) 03/25/19 07:08 Chloride 105 mmol/L (98-107) 03/25/19 07:08 Carbon Dioxide 24.1 mmol/L (21.0-32.0) 03/25/19 07:08 Anion Gap 7.9 mmol/L (3-11) 03/25/19 07:08 BUN 29 mg/dL (7-18) H 03/25/19 07:08 Creatinine 1.02 mg/dL (0.70-1.30) 03/25/19 07:08 Estimated GFR/1.73 m2 >= 60.00 (mL/min/1.73m2) 03/25/19 07:08 Glucose 162 mg/dL (70-100) H 03/25/19 07:08 Lactate 1.6 mmol/L (0.6-1.4) H 03/25/19 07:08 Calcium 8.5 mg/dL (8.5-10.1) 03/25/19 07:08 Magnesium 1.8 mg/dL (1.8-2.4) 03/25/19 07:08 Total Bilirubin 0.5 mg/dL (0.2-1.0) 03/22/19 12:50 AST 25 U/L (15-37) 03/22/19 12:50 ALT 65 U/L (16-63) H 03/22/19 12:50 Alkaline Phosphatase 67 U/L (46-116) 03/22/19 12:50 Troponin I < 0.05 ng/mL (0.00-0.06) 03/22/19 12:50 Total Protein 7.0 g/dL (6.4-8.2) 03/22/19 12:50 Albumin 3.0 g/dL (3.4-5.0) L 03/22/19 12:50 Urine Color Yellow (Yellow) 03/22/19 20:30 Urine Clarity Clear (Clear) 03/22/19 20:30 Urine pH 5.0 (5-8) 03/22/19 20:30 Ur Specific [place] 1.020 (1.005-1.025) 03/22/19 20:30 Urine Protein Negative mg/dL (Negative) 03/22/19 20:30 Urine Ketones Negative mg/dL (Negative) 03/22/19 20:30 Urine Blood Negative (Negative) 03/22/19 20:30 Urine Nitrite Negative (Negative) 03/22/19 20:30 Urine Bilirubin Negative (Negative) 03/22/19 20:30 Urine Urobilinogen 0.2 EU/dL (Up TO 0.2) 03/22/19 20:30 Ur Leukocyte Esterase Negative (Negative) 03/22/19 20:30 Urine Glucose 500 mg/dL (Negative) H 03/22/19 20:30
--- NOTE | 2019-03-25 13:00 | DI.RAD_ITS ---
EXAM: XR PORTABLE CHEST AP INDICATION: worsening shortness of breath. COMPARISON: XR CHEST 2V PA LATERAL from 03/05/2019 CT CHEST WO from 03/05/2019 XR CHEST 2V PA LATERAL from 03/10/2019 XR PORTABLE CHEST AP from 03/13/2019 XR CHEST 2V PA LATERAL from 03/15/2019 CT CHEST WO from 03/15/2019 XR CHEST 2V PA LATERAL from 03/22/2019 CT CHEST WO from 03/25/2019 TECHNIQUE: 2D digital imaging was performed. FINDINGS: The heart is again noted to be enlarged. There are chronic interstitial changes. Mildly increased densities are again seen in the right upper lobe, not significantly changed. No new infiltrate or ef fusion is seen. IMPRESSION: Cardiomegaly and chronic interstitial changes. No significant change in right upper lobe infiltrate.
--- NOTE | 2019-03-25 13:31 | DI.VRAD_ITS ---
PROCEDURE INFORMATION: Exam: XR Chest, 1 View Exam date and time: 03/25/2019 12:29 PM Clinical history: 73 years old, male; Shortness of breath and other: Worsening shortness of breath TECHNIQUE: Imaging protocol: XR of the chest Views: 1 view. COMPARISON: CR XR CHEST 2V PA LATERAL 03/22/2019 2:15 PM FINDINGS: Lungs: Opacity in the left base may represent atelectasis or pneumonia. Interstitial densities in the right upper lobe may represent chronic lung changes. Pleural space: Unremarkable. No pleural effusion. No pneumothorax. Heart/Mediastinum: Cardiomegaly Vasculature: Tortuous aorta Bones/joints: Unremarkable. IMPRESSION: Opacity in the left base may represent atelectasis or pneumonia. Dictated and Authenticated by: Yanni English MD. Ordering:LURDES Payne MD
[2019-03-25 15:36] VITALS: BP 152/76; PULSE 66; RESP 14; TEMP 36.1; O2SAT 97
--- NOTE | 2019-03-25 16:40 | DI.CT_ITS ---
EXAM: CT CHEST WO CLINICAL HISTORY: atelectasis vs pneumonia TECHNIQUE: Noncontrast. COMPARISON: CHEST 2 VIEWS PA,LAT from 06/24/2016 CHEST 2 VIEWS PA,LAT from 09/16/2017 XR CHEST 2V PA LATERAL from 03/10/2019 CT CHEST WO from 03/15/2019 XR CHEST 2V PA LATERAL from 03/15/2019 XR PORTABLE CHEST AP from 03/25/2019 FINDINGS: Diffuse interstitial changes are again noted. There is mild diffuse traction bronchiectasis. There are a few areas of atelectasis or scarring. No focal area of consolidation, pleural or pericardial effusions are seen. There is no adenopathy. IMPRESSION: Severe chronic interstitial changes. Vague areas of ground-glass opacities, greatest in the right up per lobe, which show some interval improvement. No focal area of consolidation is seen.
--- NOTE | 2019-03-25 17:21 | DI.VRAD_ITS ---
PROCEDURE INFORMATION: Exam: CT Chest Without Contrast Exam date and time: 03/25/2019 4:39 PM Clinical history: 73 years old, male; Other: Atelectasis vs pneumonia TECHNIQUE: Imaging protocol: Computed tomography of the chest without contrast. Radiation optimization: All CT scans at this facility use at least one of these dose optimization techniques: automated exposure control; mA and/or kV adjustment per patient size (includes targeted exams where dose is matched to clinical indication); or iterative reconstruction. COMPARISON: CT CHEST WO 03/15/2019 5:09 PM FINDINGS: Lungs: [place] in the medial aspect of the left upper lobe Subpleural interstitial densities consistent with chronic lung changes Mild opacities in the right upper lobe and right middle lobe and both lower lobes may represent mild atelectasis or pneumonia.. 12 mm focal opacity in the lingula (2:26). Additional 11.7 mm focal opacity in the lingula (2:28. May represent atypical nodules or mild atelectasis or pneumonia. Pleural space: Unremarkable. No pneumothorax. No pleural effusion. Heart: Coronary artery calcifications may indicate coronary artery disease Aorta: Unremarkable. No aortic aneurysm. Great vessels off aortic arch: Unusual area of increased lucency laterally in the lingula 1 cm in width (2:28) not clearly a pneumothorax as it contains lung vessels. Lymph nodes: Unremarkable. No enlarged lymph nodes. Bones/joints: Unremarkable. No acute fracture. Soft tissues: Unremarkable. IMPRESSION: 1. Mild opacities in the right upper lobe and right middle lobe and both lower lobes may represent mild atelectasis or pneumonia.. 2. 12 mm focal opacity in the lingula (2:26). Additional 11.7 mm focal opacity in the lingula (2:28. May represent atypical nodules or mild atelectasis or pneumonia. 3. Unusual area of increased lucency laterally in the lingula 1 cm in width (2:28) not clearly a pneumothorax as it contains lung vessels. Dictated and Authenticated by: Yanni English MD. Ordering:LURDES Payne MD
[2019-03-25 18:20] VITALS: RESP 1
[2019-03-25 19:45] VITALS: BP 152/76; PULSE 66; RESP 14; TEMP 36.1; O2SAT 97
[2019-03-25] MEDS: Rosuvastatin 10 MG TAB 40 MG PO (20:08)
[2019-03-25] MEDS: Melatonin 3 MG TAB 9 MG PO (20:09)
[2019-03-26] VITALS (7 sets, daily range): BP systolic 155–162; BP diastolic 75–77; PULSE 69–94; RESP 1–18; TEMP 36.1–36.5; O2SAT 95–99
[2019-03-26] MEDS: Normal Saline Flush 10 ML SYR IVP ×3 (01:11→18:21)
[2019-03-26] MEDS: Albuterol/Ipratropium 3 ML UPD VIAL UPD ×4 (01:11→18:20)
[2019-03-26] MEDS: Hydrocortisone SOD SUC. 100 MG VIAL 50 MG IVP ×2 (01:12→10:17)
[2019-03-26] MEDS: Levothyroxine 150 MCG TAB PO (05:47)
[2019-03-26 07:38] LABS: Abs Immature Grans 0.01 k/cumm (0.0-0.09); Absolute Eosinophil Count 0.01 k/cumm (0.0-0.7); Absolute Lymphocyte Count 0.52 k/cumm (1.2-3.4); Absolute Monocyte Count 0.35 k/cumm (0.11-0.7); Absolute Neutrophil Count 5.87 k/cumm (1.2-6.7); Eosinophils % 0.1; HGB 9.8 g/dL (13.5-17.5); Immature Grans % 0.1; Lymphocytes % 7.7; Mean Corp. HGB Concentration 31.6 g/dL (32.0-36.0); Mean Corpuscular Hemoglobin 30.9 pg (27.0-33.0); Mean Corpuscular Volume 97.8 fL (80-95); Mean Platelet Volume 11.5 fL (8.0-11.0); Monocytes % 5.2; Neutrophils % 86.9; Platelet Count 157 x1000/uL (130-400); RBC 3.17 m/cumm (4.50-6.00); RBC Distribution Width 16.5 % (11.8-14.1); White Blood Cell Count 6.76 k/cumm (4.4-10.8)
[2019-03-26 07:51] LABS: Anion Gap 9.9 mmol/L (3-11); BUN 26 mg/dL (7-18); CO2 24.1 mmol/L (21.0-32.0); CREATININE 1.02 mg/dL (0.70-1.30); Calcium 8.8 mg/dL (8.5-10.1); Chloride 107 mmol/L (98-107); Glucose 193 mg/dL (70-100); Magnesium 1.8 mg/dL (1.8-2.4); Sodium 141 mmol/L (136-145)
[2019-03-26 08:16] LABS: Prothrombin Time 48.2 sec (9.3-11.0)
[2019-03-26] MEDS: Insulin Aspart 300 UNITS/3 ML PEN SC ×3 (08:59→17:17)
[2019-03-26] MEDS: Calcitonin-Salmon, Synthetic 3.7 ML BTL NS (09:01)
[2019-03-26] MEDS: methylPREDNISolone 4 MG TAB 20 MG PO (09:02)
[2019-03-26] MEDS: Acetaminophen 325 MG TAB PO ×2 (09:03→15:02)
[2019-03-26] MEDS: FLUoxetine 10 MG TAB 30 MG PO (09:03)
[2019-03-26] MEDS: Calcium 600mg/Vit D 200U TAB 2 TAB PO (09:03)
[2019-03-26] MEDS: Liothyronine 5 MCG TAB PO (09:03)
[2019-03-26] MEDS: Cholecalciferol (Vitamin D3) 1,000 UNIT TAB 2000 UNITS PO (09:05)
[2019-03-26] MEDS: Docusate Sodium 100 MG CAP PO (09:05)
[2019-03-26] MEDS: oxyCODONE 5 MG TAB PO ×2 (09:05→15:02)
[2019-03-26] MEDS: Lactobacillus Acidophilus CAP 1 CAP PO ×3 (09:06→20:20)
[2019-03-26] MEDS: Tamsulosin 0.4 MG CAPCR PO (09:06)
[2019-03-26] MEDS: Pantoprazole 40 MG TABCR PO ×2 (09:06→20:20)
[2019-03-26] MEDS: amLODIPine 5 MG TAB PO (09:06)
[2019-03-26] MEDS: Folic Acid 1 MG TAB PO (09:06)
[2019-03-26] MEDS: buPROPion-XL 150 MG TABCR PO (09:06)
[2019-03-26] MEDS: Finasteride 5 MG TAB PO (09:06)
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
--- NOTE | 2019-03-26 10:31 | PHARADMIT ---
Admission Pharmacy Clinical Review Generalized weakness, falls at home, hypotension, dehydration Code Status Full Code Current Weight Wgt-87.2 kg Renally Cleared and Narrow Therapeutic Index Meds CrCl~69 mL/min Meds-OK QTc Value / Action Taken QTc-434 na BP Control, Fever BP-155/77 Tmax- 36.7C Electrolytes reviewed Na- 141 K+4.0 Mag-1.8 DVT Prophylaxis No Warfarin held (High INR) Opiate Usage / Scheduled Bowel Regimen Ordered Yes Yes Plt/SCr for Heparin / Enoxaparin Plts-157 SCr-1.02 INR for Warfarin INR-5.0 H/H stable, WBC/Bands H&H-9.8/31.0 WBC-6.76 Antibiotic appropriateness none Cultures and Sensitivities Blood bacillus Species Surgical ABX d/c within 24 hr NA DM control / Insulin Dosing BG-193 ASpart, Detemir Heart Failure (Check EF%) (СЕРГЕЙ's, B-Block, Diuretics) Norvasc, NTG, IV to PO Switch No Home Meds Reviewed Yes Home Meds Not Ordered Warfarin on HOLD, Spironolactone, Saccaromyces yusufi, Comments PatOwn- Leflunomide & Mesalamine
--- NOTE | 2019-03-26 11:29 | PT.INTREAT ---
Date of service: 03/26/19 Time of Service: 11:29 PT Notes Inpatient Physical Therapy Treatment Note [facility] Date: 03/26/2019 PRECAUTIONS: Fall SUBJECTIVE: Sonido is pleasant and agreeable to participating in PT. He states during the session it feels good to get up and walk. OBJECTIVE: PAIN: Patient c/o LE pain with gait training BED MOBILITY/TRANSFERS Sit-supine: I Sit-stand: SBA Stand-sit: SBA GAIT Assistive Device: FWW Weight bearing: Full Assist: SBA Distance: 75' + 150' Deviation: Seated rest x1, increased SOB, increased LE pain THEREX: Patient completed several LE strengthening exercises, in a supine position, as per flow sheet. ASSESSMENT: Patient tolerated session with complaints of increased LE pain with gait training. He was able to tolerate a progression in gait distance with FWW support and SBA, although demonstrating increased SOB, requiring seated rest x1. Patient would benefit from continued gait and transfer training for improved mobility and activity tolerance. PLAN: Continue with PTs POC TREATMENT CODE/TIME: 25 minutes; 86185 x2
--- NOTE | 2019-03-26 14:03 | CMPROGNOTE_ITS ---
- If Service Date Differs Date of service: 03/26/19 Time of Service: 14:03 Care Management Progress Note S/O: Miguel is lying in bed watching television when CM meets with him. He is pleasant and talkative. He shares he has decided to go to rehab to regain some strength prior to returning home and says he knows he needs to do this, so he might as well get it over with. CM will continue to follow. A: Miguel is a 73 year old male readmitted to [facility] on 03/22/2019 for generalized weakness, fall at home, hypotension, and dehydration. P: Miguel has agreed to a short-term rehab stay to gain strength and stabilize the management of his medications prior to returning home. He will transfer to rehab when medically stable. Referrals have been faxed to [facility], [facility], and [facility]. A new referral will need to be made to [facility] for nursing, PT, OT, and GRAIN [facility]ER prior to returning home. CM will continue to follow and support patient and discharge planning considerations.
--- NOTE | 2019-03-26 14:11 | PGE_ITS ---
Date of Service Date of service: 03/26/19 Time of Service: 14:12 Assessment and Plan Assessment and plan (1) Adrenal insufficiency: Status: Acute Assessment and plan: Better. Start to taper steroids. No acute pneumonia on CT. Agrees to SNF. (2) Left hip pain: Status: Acute Assessment and plan: Continue prn oxycodone. Coordinate with PT. (3) ILD (interstitial lung disease): Status: Suspected Assessment and plan: Feels better with scheduled duonebs and prn albuterol. Likely does have ILD. Would benefit from a nebulizer machine on discharge. Pulmonary follow up already arranged as outpatient. (4) PRISCILLA (acute kidney injury): Status: Resolved Assessment and plan: In setting of poor PO intake, possible adrenal inssuficiency. Likely pre-renal in etiology. At baseline. LA better - abstain from IVF at this time. (5) Hypertension: Status: Chronic Assessment and plan: Continue CCB, continue to hold Spironolactone. Monitor BP. (6) Diabetes mellitus, type II, insulin dependent: Status: Acute Assessment and plan: Will adjust basal bolus insulin as steroids are being titrated down. (7) Coronary artery disease: Status: Chronic Assessment and plan: h/o CAD in setting of RA and Crohn's Disease. Reportedly with 5 prior MA's, s/p multiple stents (Documented 7 by review of cardiology notes). No evidence of ACS at this time. - Continue statin, prn NTG. Does not appear to be on daily ASA or BB. (8) Obstructive sleep apnea: Status: Chronic Assessment and plan: Continue CPAP. (9) Crohns disease: Status: Chronic Assessment and plan: On Humira, Mesalamine. Patient also has a history of RA, maintained on Leflunomide as well. (10) CVA (cerebral vascular accident): Status: Chronic Assessment and plan: History of prior strokes, with evidence of old bilateral lacunar infarcts present on CT. The patient is on daily anticoagulation and statin therapy, needs optimization of his comorbidities. He likely remains at high risk given his overall history and age. (11) Lactic acidosis: Status: Acute Assessment and plan: Improved. Would not start IVF at this time. (12) DVT prophylaxis: Status: Acute Assessment and plan: INR supratherapeutic on coumadin - does have a h/o se veral DVTs/PE's. (13) Discharge planning issues: Status: Acute Assessment and plan: Full code Agrees to SNF Subjective Subjective Interval history since last seen: Mr Padilla states that he is doing alright, actually. He denies a cough, states his breathing is a lot better with the nebulizers. He is interested in having one on discharge. Denies dizziness (other than his normal), chest pain, nausea. He was able to walk around today - without oxygen. Energy level is a little better today. Exam Narrative Exam Narrative: General: very pleasant elderly male, A&OX3, Sitting at the edge of the bed, actually looks better. HEENT: EOMI, MMM Heart: RRR, no m/r/g Lungs: CTAB, possibly slightly coarse GI: abdomen is soft, nontender, nondistended Extremities: trace edema at B ankles; no c/c BLE's Objective Objective Clinical Data: Abnormal lab results 03/26/19 03/26/19 03/26/19 Range/Units 07:30 07:30 07:30 RBC 3.17 L (4.50-6.00) m/cumm Hgb 9.8 L (13.5-17.5) g/dL Hct 31.0 L (40.0-50.0) % MCV 97.8 H (80-95) fL MCHC 31.6 L (32.0-36.0) g/dL RDW 16.5 H (11.8-14.1) % MPV 11.5 H (8.0-11.0) fL Absolute Lymphocytes 0.52 L (1.2-3.4) k/cumm PT 48.2 H (9.3-11.0) sec INR 5.0 H* (0.9-1.1) BUN 26 H (7-18) mg/dL Glucose 193 H (70-100) mg/dL Vital Signs Temperature 36.1 C L 03/26/19 07:36 Temperature Source Tympanic 03/26/19 07:36 Pulse 94 H 03/26/19 11:41 Pulse Rhythm Regular 03/26/19 01:30 Respiratory Rate 18 03/26/19 11:41 Respiratory Effort Non-Labored 03/26/19 01:30 Respiratory Depth Normal 03/26/19 01:30 Respiratory Pattern Normal 03/26/19 01:30 Blood Pressure 155/77 H 03/26/19 07:36 Pulse Oximetry 99 03/26/19 11:41 Oxygen Delivery Method Room Air 03/26/19 11:32 Oxygen Flow Rate 0 03/26/19 11:32 Fraction of Inspired Oxygen (FIO2) 21 03/26/19 10:15 Pain Level 0 03/26/19 07:36 Comment 03/23/19 08:00 Intake & Output 03/25/19 03/26/19 03/26/19 23:59 11:59 23:59 Intake Total 490 / 1240 480 / 480 Output Total 600 / 1050 400 / 600 200 / 600 Balance -110 / 190 -400 / -120 280 / -120 Intake: IV Oral 480 / 1220 480 / 480 Output: Urine 600 / 1050 400 / 600 200 / 600 Other: Urine Color Straw Yellow Yellow Urine Appearance Clear Clear Urine Odor Normal Normal Comment Voided at the same time as BM. Not measured. Stool Size Large Voiding Methods Urinal Urinal Urinal Laboratory Results WBC 6.76 k/cumm (4.4-10.8) 03/26/19 07:30 RBC 3.17 m/cumm (4.50-6.00) L 03/26/19 07:30 Hgb 9.8 g/dL (13.5-17.5) L 03/26/19 07:30 Hct 31.0 % (40.0-50.0) L 03/26/19 07:30 MCV 97.8 fL (80-95) H 03/26/19 07:30 MCH 30.9 pg (27.0-33.0) 03/26/19 07:30 MCHC 31.6 g/dL (32.0-36.0) L 03/26/19 07:30 RDW 16.5 % (11.8-14.1) H 03/26/19 07:30 Plt Count 157 x1000/uL (130-400) 03/26/19 07:30 MPV 11.5 fL (8.0-11.0) H 03/26/19 07:30 Immature Gran % 0.1 03/26/19 07:30 Neutrophils % 86.9 03/26/19 07:30 Lymphocytes % 7.7 03/26/19 07:30 Monocytes % 5.2 03/26/19 07:30 Eosinophils % 0.1 03/26/19 07:30 Basophils % 0.0 03/26/19 07:30 Absolute Neutrophils 5.87 k/cumm (1.2-6.7) 03/26/19 07:30 Absolute Lymphocytes 0.52 k/cumm (1.2-3.4) L 03/26/19 07:30 Absolute Monocytes 0.35 k/cumm (0.11-0.7) 03/26/19 07:30 Absolute Eosinophils 0.01 k/cumm (0.0-0.7) 03/26/19 07:30 Absolute Basophils 0.00 k/cumm (0.0-0.2) 03/26/19 07:30 PT 48.2 sec (9.3-11.0) H 03/26/19 07:30 INR 5.0 (0.9-1.1) H* 03/26/19 07:30 APTT 25.1 sec (21.0-31.4) 03/22/19 12:50 Sodium 141 mmol/L (136-145) 03/26/19 07:30 Potassium 4.0 mmol/L (3.5-5.1) 03/26/19 07:30 Chloride 107 mmol/L (98-107) 03/26/19 07:30 Carbon Dioxide 24.1 mmol/L (21.0-32.0) 03/26/19 07:30 Anion Gap 9.9 mmol/L (3-11) 03/26/19 07:30 BUN 26 mg/dL (7-18) H 03/26/19 07:30 Creatinine 1.02 mg/dL (0.70-1.30) 03/26/19 07:30 Estimated GFR/1.73 m2 >= 60.00 (mL/min/1.73m2) 03/26/19 07:30 Glucose 193 mg/dL (70-100) H 03/26/19 07:30 Lactate 1.6 mmol/L (0.6-1.4) H 03/25/19 07:08 Calcium 8.8 mg/dL (8.5-10.1) 03/26/19 07:30 Magnesium 1.8 mg/dL (1.8-2.4) 03/26/19 07:30 Total Bilirubin 0.5 mg/dL (0.2-1.0) 03/22/19 12:50 AST 25 U/L (15-37) 03/22/19 12:50 ALT 65 U/L (16-63) H 03/22/19 12:50 Alkaline Phosphatase 67 U/L (46-116) 03/22/19 12:50 Troponin I < 0.05 ng/mL (0.00-0.06) 03/22/19 12:50 Total Protein 7.0 g/dL (6.4-8.2) 03/22/19 12:50 Albumin 3.0 g/dL (3.4-5.0) L 03/22/19 12:50 Urine Color Yellow (Yellow) 03/22/19 20:30 Urine Clarity Clear (Clear) 03/22/19 20:30 Urine pH 5.0 (5-8) 03/22/19 20:30 Ur Specific [place] 1.020 (1.005-1.025) 03/22/19 20:30 Urine Protein Negative mg/dL (Negative) 03/22/19 20:30 Urine Ketones Negative mg/dL (Negative) 03/22/19 20:30 Urine Blood Negative (Negative) 03/22/19 20:30 Urine Nitrite Negative (Negative) 03/22/19 20:30 Urine Bilirubin Negative (Negative) 03/22/19 20:30 Urine Urobilinogen 0.2 EU/dL (Up TO 0.2) 03/22/19 20:30 Ur Leukocyte Esterase Negative (Negative) 03/22/19 20:30 Urine Glucose 500 mg/dL (Negative) H 03/22/19 20:30 CT chest 03/25/19: Severe chronic interstitial changes. Vague areas of ground- glass opacities, greatest in the right upper lobe, which show some interval improvement. No focal area of consolidation is seen.
[2019-03-26] MEDS: Hydrocortisone SOD SUC. 100 MG VIAL 25 MG IVP (18:21)
[2019-03-26] MEDS: Rosuvastatin 10 MG TAB 40 MG PO (21:03)
[2019-03-27] VITALS (7 sets, daily range): BP systolic 117–184; BP diastolic 71–81; PULSE 63–94; RESP 1–20; TEMP 36.2–37; O2SAT 96–98
[2019-03-27] MEDS: Albuterol/Ipratropium 3 ML UPD VIAL UPD ×4 (01:02→23:34)
[2019-03-27] MEDS: Hydrocortisone SOD SUC. 100 MG VIAL 25 MG IVP ×2 (01:06→10:08)
[2019-03-27] MEDS: Normal Saline Flush 10 ML SYR IVP ×2 (01:06→10:08)
[2019-03-27] MEDS: Levothyroxine 150 MCG TAB PO (07:23)
[2019-03-27 07:51] LABS: Abs Immature Grans 0.03 k/cumm (0.0-0.09); Absolute Eosinophil Count 0.07 k/cumm (0.0-0.7); Absolute Lymphocyte Count 0.92 k/cumm (1.2-3.4); Eosinophils % 1.1; HCT 28.7 % (40.0-50.0); INR 2.8 (0.9-1.1); Immature Grans % 0.5; Lymphocytes % 14.3; Mean Corp. HGB Concentration 31.4 g/dL (32.0-36.0); Mean Corpuscular Hemoglobin 30.8 pg (27.0-33.0); Mean Corpuscular Volume 98.3 fL (80-95); Mean Platelet Volume 11.1 fL (8.0-11.0); Monocytes % 6.2; Neutrophils % 77.9; Platelet Count 138 x1000/uL (130-400); Prothrombin Time 27.1 sec (9.3-11.0); RBC 2.92 m/cumm (4.50-6.00); RBC Distribution Width 16.4 % (11.8-14.1); White Blood Cell Count 6.42 k/cumm (4.4-10.8)
[2019-03-27 08:01] LABS: BUN 21 mg/dL (7-18); Calcium 8.4 mg/dL (8.5-10.1); Chloride 107 mmol/L (98-107); Glucose 195 mg/dL (70-100); Magnesium 1.8 mg/dL (1.8-2.4); Sodium 140 mmol/L (136-145)
[2019-03-27 08:07] LABS: Anisocytosis 1+; Diff Comment RBC Morph Reviewed; Polychromasia Present
[2019-03-27] MEDS: Fluticasone NASAL SPRAY 16 GM BTL NS (08:14)
[2019-03-27] MEDS: Liothyronine 5 MCG TAB PO (08:16)
[2019-03-27] MEDS: Calcitonin-Salmon, Synthetic 3.7 ML BTL NS (08:16)
[2019-03-27] MEDS: FLUoxetine 10 MG TAB 30 MG PO (08:16)
[2019-03-27] MEDS: Calcium 600mg/Vit D 200U TAB 2 TAB PO (08:17)
[2019-03-27] MEDS: Cholecalciferol (Vitamin D3) 1,000 UNIT TAB 2000 UNITS PO (08:17)
[2019-03-27] MEDS: buPROPion-XL 150 MG TABCR PO (08:17)
[2019-03-27] MEDS: Finasteride 5 MG TAB PO (08:18)
[2019-03-27] MEDS: Docusate Sodium 100 MG CAP PO (08:18)
[2019-03-27] MEDS: amLODIPine 5 MG TAB PO (08:18)
[2019-03-27] MEDS: Folic Acid 1 MG TAB PO (08:19)
[2019-03-27] MEDS: Pantoprazole 40 MG TABCR PO ×2 (08:19→20:13)
[2019-03-27] MEDS: Lactobacillus Acidophilus CAP 1 CAP PO ×3 (08:19→20:13)
[2019-03-27] MEDS: Tamsulosin 0.4 MG CAPCR PO (08:19)
[2019-03-27] MEDS: Insulin Aspart 300 UNITS/3 ML PEN SC ×3 (08:19→21:48)
[2019-03-27] MEDS: oxyCODONE 5 MG TAB PO (09:18)
[2019-03-27] MEDS: Acetaminophen 325 MG TAB PO (09:18)
--- NOTE | 2019-03-27 11:58 | PT.INTREAT ---
Date of service: 03/27/19 Time of Service: 11:58 PT Notes Inpatient Physical Therapy Treatment Note [facility] Date: 03/27/2019 PRECAUTIONS: Fall SUBJECTIVE: Sonido is pleasant and agreeable to participating in PT. OBJECTIVE: PAIN: Patient c/o back pain with gait training BED MOBILITY/TRANSFERS Sit-stand: S Stand-sit: S GAIT Assistive Device: FWW Weight bearing: Full Assist: SBA Distance: 150' Deviation: Multiple standing rests, increased back pain ASSESSMENT: Patient tolerated session with complaints of increased back pain with gait training. He tolerated gait training with FWW support and SBA, although required multiple standing rests due to increased back pain. Patient would benefit from continued gait and transfer training for improved mobility and activity tolerance. PLAN: Continue with PTs POC TREATMENT CODE/TIME: 15 minutes; [id number]
[2019-03-27] MEDS: Spironolactone 25 MG TAB PO (12:22)
--- NOTE | 2019-03-27 15:30 | CMPROGNOTE_ITS ---
- If Service Date Differs Date of service: 03/27/19 Time of Service: 15:30 Care Management Progress Note S/O: Miguel is sitting on the side of the bed working on his computer when CM comes to meet with him. He is pleasant and easily engages in conversation. He states he is going to the [facility] tomorrow and feels going to Rehab is the best outcome for him. He hopes to only be at the Rehab for a couple of weeks to regain some strength prior to returning home. CM continues to follow. A: Miguel is a 73 year old male admitted to [facility] on 03/22/2019 for generalized weakness, fall at home, hypotension, and dehydration. P: Miguel is expected to transfer to the [facility]. He will be transported to the Rehab by wheelchair van at 1:00 pm. CM will continue to follow.
--- NOTE | 2019-03-27 16:14 | W.PM.PROGNOT ---
Date of Service Date of service: 03/27/19 Time of Service: 16:15 Assessment and Plan Assessment and plan (1) Adrenal insufficiency: Status: Acute Assessment and plan: Better. Start to taper steroids. No acute pneumonia on CT. Agrees to SNF. (2) Left hip pain: Status: Acute Assessment and plan: Continue prn oxycodone. Coordinate with PT. (3) ILD (interstitial lung disease): Status: Suspected Assessment and plan: Feels better with scheduled duonebs and prn albuterol. Likely does have ILD. Would benefit from a nebulizer machine on discharge. Pulmonary follow up already arranged as outpatient. (4) PRISCILLA (acute kidney injury): Status: Resolved Assessment and plan: In setting of poor PO intake, possible adrenal inssuficiency. Likely pre-renal in etiology. At baseline. LA better - abstain from IVF at this time. (5) Hypertension: Status: Chronic Assessment and plan: Continue CCB, continue to hold Spironolactone. Monitor BP. (6) Diabetes mellitus, type II, insulin dependent: Status: Acute Assessment and plan: Will adjust basal bolus insulin as steroids are being titrated down. (7) Coronary artery disease: Status: Chronic Assessment and plan: h/o CAD in setting of RA and Crohn's Disease. Reportedly with 5 prior NH's, s/p multiple stents (Documented 7 by review of cardiology notes). No evidence of ACS at this time. - Continue statin, prn NTG. Does not appear to be on daily ASA or BB. (8) Obstructive sleep apnea: Status: Chronic Assessment and plan: Continue CPAP. (9) Crohns disease: Status: Chronic Assessment and plan: On Humira, Mesalamine. Patient also has a history of RA, maintained on Leflunomide as well. (10) CVA (cerebral vascular accident): Status: Chronic Assessment and plan: History of prior strokes, with evidence of old bilateral lacunar infarcts present on CT. The patient is on daily anticoagulation and statin therapy, needs optimization of his comorbidities. He likely remains at high risk given his overall history and age. (11) Lactic acidosis: Status: Acute Assessment and plan: Improved. Would not start IVF at this time. 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 (13) Discharge planning issues: Status: Acute Assessment and plan: Full code Agrees to SNF Subjective Subjective Interval history since last seen: Mr Padilla states he is feeling better. Denies dizziness, chest pain, shortness of breath, nausea. Having a good day. Slept well. Thinks he will be able to go to rehab tomorrow. Exam Narrative Exam Narrative: General: very pleasant elderly male, A&OX3, Sitting at the edge of the bed, in great spirits HEENT: EOMI, MMM Heart: RRR, no m/r/g Lungs: CTAB, possibly slightly coarse GI: abdomen is soft, nontender, nondistended Extremities: trace edema at B ankles; no c/c BLE's Objective Objective Clinical Data: Abnormal lab results 03/27/19 03/27/19 03/27/19 Range/Units 07:08 07:08 07:08 RBC 2.92 L (4.50-6.00) m/cumm Hgb 9.0 L (13.5-17.5) g/dL Hct 28.7 L (40.0-50.0) % MCV 98.3 H (80-95) fL MCHC 31.4 L (32.0-36.0) g/dL RDW 16.4 H (11.8-14.1) % MPV 11.1 H (8.0-11.0) fL Absolute Lymphocytes 0.92 L (1.2-3.4) k/cumm PT 27.1 H D (9.3-11.0) sec INR 2.8 H D (0.9-1.1) BUN 21 H (7-18) mg/dL Glucose 195 H (70-100) mg/dL Calcium 8.4 L (8.5-10.1) mg/dL Vital Signs Temperature 36.2 C L 03/27/19 16:11 Temperature Source Tympanic 03/27/19 16:11 Pulse 94 H 03/27/19 16:11 Pulse Rhythm Irregular 03/27/19 08:00 Respiratory Rate 18 03/27/19 16:11 Respiratory Effort Non-Labored 03/27/19 08:00 Respiratory Depth Normal 03/27/19 08:00 Respiratory Pattern Normal 03/27/19 08:00 Blood Pressure 117/81 03/27/19 16:11 Pulse Oximetry 98 03/27/19 16:11 Oxygen Delivery Method Room Air 03/27/19 16:11 Oxygen Flow Rate 0 03/27/19 16:11 Fraction of Inspired Oxygen (FIO2) 21 03/27/19 08:26 Pain Level 4 03/27/19 09:18 Comment 03/23/19 08:00 Intake & Output 03/26/19 03/27/19 03/27/19 23:59 11:59 23:59 Intake Total 960 / 960 280 / 520 240 / 520 Output Total 200 / 600 1025 / 1025 Balance 760 / 360 -745 / -505 240 / -505 Intake: IV 40 / 40 Oral 960 / 960 240 / 480 240 / 480 Output: Urine 200 / 600 1025 / 1025 Other: Urine Color Yellow Yellow Urine Appearance Clear Clear Urine Odor Normal Stool Size Moderate Stool Characteristics Soft Formed Brown Voiding Methods Urinal Urinal Laboratory Results WBC 6.42 k/cumm (4.4-10.8) 03/27/19 07:08 RBC 2.92 m/cumm (4.50-6.00) L 03/27/19 07:08 Hgb 9.0 g/dL (13.5-17.5) L 03/27/19 07:08 Hct 28.7 % (40.0-50.0) L 03/27/19 07:08 MCV 98.3 fL (80-95) H 03/27/19 07:08 MCH 30.8 pg (27.0-33.0) 03/27/19 07:08 MCHC 31.4 g/dL (32.0-36.0) L 03/27/19 07:08 RDW 16.4 % (11.8-14.1) H 03/27/19 07:08 Plt Count 138 x1000/uL (130-400) 03/27/19 07:08 MPV 11.1 fL (8.0-11.0) H 03/27/19 07:08 Immature Gran % 0.5 03/27/19 07:08 Neutrophils % 77.9 03/27/19 07:08 Lymphocytes % 14.3 03/27/19 07:08 Monocytes % 6.2 03/27/19 07:08 Eosinophils % 1.1 03/27/19 07:08 Basophils % 0.0 03/27/19 07:08 Absolute Neutrophils 5.00 k/cumm (1.2-6.7) 03/27/19 07:08 Absolute Lymphocytes 0.92 k/cumm (1.2-3.4) L 03/27/19 07:08 Absolute Monocytes 0.40 k/cumm (0.11-0.7) 03/27/19 07:08 Absolute Eosinophils 0.07 k/cumm (0.0-0.7) 03/27/19 07:08 Absolute Basophils 0.00 k/cumm (0.0-0.2) 03/27/19 07:08 Differential Comment Rbc morph reviewed 03/27/19 07:08 RBC Morphology See below 03/27/19 07:08 Polychromasia Present 03/27/19 07:08 Anisocytosis 1+ 03/27/19 07:08 PT 27.1 sec (9.3-11.0) H D 03/27/19 07:08 INR 2.8 (0.9-1.1) H D 03/27/19 07:08 APTT 25.1 sec (21.0-31.4) 03/22/19 12:50 Sodium 140 mmol/L (136-145) 03/27/19 07:08 Potassium 4.0 mmol/L (3.5-5.1) 03/27/19 07:08 Chloride 107 mmol/L (98-107) 03/27/19 07:08 Carbon Dioxide 24.0 mmol/L (21.0-32.0) 03/27/19 07:08 Anion Gap 9.0 mmol/L (3-11) 03/27/19 07:08 BUN 21 mg/dL (7-18) H 03/27/19 07:08 Creatinine 0.80 mg/dL (0.70-1.30) 03/27/19 07:08 Estimated GFR/1.73 m2 >= 60.00 (mL/min/1.73m2) 03/27/19 07:08 Glucose 195 mg/dL (70-100) H 03/27/19 07:08 Lactate 1.6 mmol/L (0.6-1.4) H 03/25/19 07:08 Calcium 8.4 mg/dL (8.5-10.1) L 03/27/19 07:08 Magnesium 1.8 mg/dL (1.8-2.4) 03/27/19 07:08 Total Bilirubin 0.5 mg/dL (0.2-1.0) 03/22/19 12:50 AST 25 U/L (15-37) 03/22/19 12:50 ALT 65 U/L (16-63) H 03/22/19 12:50 Alkaline Phosphatase 67 U/L (46-116) 03/22/19 12:50 Troponin I < 0.05 ng/mL (0.00-0.06) 03/22/19 12:50 Total Protein 7.0 g/dL (6.4-8.2) 03/22/19 12:50 Albumin 3.0 g/dL (3.4-5.0) L 03/22/19 12:50 Urine Color Yellow (Yellow) 03/22/19 20:30 Urine Clarity Clear (Clear) 03/22/19 20:30 Urine pH 5.0 (5-8) 03/22/19 20:30 Ur Specific [place] 1.020 (1.005-1.025) 03/22/19 20:30 Urine Protein Negative mg/dL (Negative) 03/22/19 20:30 Urine Ketones Negative mg/dL (Negative) 03/22/19 20:30 Urine Blood Negative (Negative) 03/22/19 20:30 Urine Nitrite Negative (Negative) 03/22/19 20:30 Urine Bilirubin Negative (Negative) 03/22/19 20:30 Urine Urobilinogen 0.2 EU/dL (Up TO 0.2) 03/22/19 20:30 Ur Leukocyte Esterase Negative (Negative) 03/22/19 20:30 Urine Glucose 500 mg/dL (Negative) H 03/22/19 20:30
[2019-03-27] MEDS: methylPREDNISolone 4 MG TAB PO (16:58)
[2019-03-27] MEDS: Rosuvastatin 10 MG TAB 40 MG PO (21:42)
[2019-03-28 06:16] VITALS: PULSE 62; RESP 1; RESP 17; O2SAT 97
[2019-03-28] MEDS: Levothyroxine 150 MCG TAB PO (06:16)
[2019-03-28] MEDS: Albuterol/Ipratropium 3 ML UPD VIAL UPD ×2 (06:16→11:50)
[2019-03-28 07:34] VITALS: BP 157/78; PULSE 84; RESP 17; TEMP 36.5; O2SAT 97
[2019-03-28] MEDS: Fluticasone NASAL SPRAY 16 GM BTL NS (07:51)
[2019-03-28] MEDS: Calcitonin-Salmon, Synthetic 3.7 ML BTL NS (07:52)
[2019-03-28 07:53] LABS: INR 2.4 (0.9-1.1)
[2019-03-28] MEDS: Cholecalciferol (Vitamin D3) 1,000 UNIT TAB 2000 UNITS PO (07:53)
[2019-03-28] MEDS: Liothyronine 5 MCG TAB PO (07:53)
[2019-03-28] MEDS: buPROPion-XL 150 MG TABCR PO (07:53)
[2019-03-28] MEDS: FLUoxetine 10 MG TAB 30 MG PO (07:53)
[2019-03-28] MEDS: Lactobacillus Acidophilus CAP 1 CAP PO (07:53)
[2019-03-28] MEDS: Calcium 600mg/Vit D 200U TAB 2 TAB PO (07:54)
[2019-03-28] MEDS: Finasteride 5 MG TAB PO (07:55)
[2019-03-28] MEDS: Acetaminophen 325 MG TAB PO (07:55)
[2019-03-28 07:56] LABS: Anion Gap 9.4 mmol/L (3-11); BUN 17 mg/dL (7-18); CO2 24.6 mmol/L (21.0-32.0); CREATININE 0.92 mg/dL (0.70-1.30); Calcium 8.6 mg/dL (8.5-10.1); Chloride 106 mmol/L (98-107); Glucose 91 mg/dL (74-106); Magnesium 1.7 mg/dL (1.8-2.4); Potassium 4.3 mmol/L (3.5-5.1); Sodium 140 mmol/L (136-145)
[2019-03-28] MEDS: amLODIPine 5 MG TAB PO (07:56)
[2019-03-28] MEDS: Pantoprazole 40 MG TABCR PO (07:56)
[2019-03-28] MEDS: Spironolactone 50 MG TAB PO (07:57)
[2019-03-28] MEDS: oxyCODONE 5 MG TAB PO (07:57)
[2019-03-28] MEDS: Docusate Sodium 100 MG CAP PO (07:57)
[2019-03-28] MEDS: Folic Acid 1 MG TAB PO (07:57)
[2019-03-28] MEDS: Tamsulosin 0.4 MG CAPCR PO (08:57)
[2019-03-28 11:50] VITALS: PULSE 76; RESP 16; RESP 8; O2SAT 98
[2019-03-28 11:53] VITALS: RESP 15
[2019-03-28 12:05] VITALS: PULSE 82; RESP 16; RESP 8; O2SAT 96
[2019-03-28] MEDS: Insulin Aspart 300 UNITS/3 ML PEN SC (12:37)
--- NOTE | 2019-03-28 12:54 | DSE_ITS ---
Date of service: 03/28/19 Time of Service: 12:54 DS: Diagnosis Discharge Diagnosis (1) Adrenal insufficiency: Status: Acute (2) Left hip pain: Status: Acute (3) ILD (interstitial lung disease): Status: Suspected (4) PRISCILLA (acute kidney injury): Status: Resolved (5) Hypertension: Status: Chronic (6) Diabetes mellitus, type II, insulin dependent: Status: Acute (7) Coronary artery disease: Status: Chronic (8) Obstructive sleep apnea: Status: Chronic (9) Crohns disease: Status: Chronic (10) CVA (cerebral vascular accident): Status: Chronic (11) Lactic acidosis: Status: Acute (12) Ambulatory dysfunction: Status: Acute Discharge Plan Disposition Patient Disposition: SNF (LEVEL 1) [facility] Condition: Stable Discharge Details Chief Complaint: GenMedical Clinical Impression: Generalized weakness, Hypotension, Dehydration Reason For Visit: GENERALIZED WEAKNESS,FALL AT HOME,HYPOTENSION,DEHY Admit Date/Time: 03/24/19 11:30 Admit Provider: Kirill Mtz Attending Provider: Kirill Mtz Primary Care Provider: Korin Florian ED Provider: Brigitte Reinoso Hospital Course Hospital Course: Mr Anderson is a 73 year old male with 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 He was treated with stress dose steroids, which were weaned to medrol 16 mg PO daily which he should continue for 3 days, before switching to 15 mg (his usual dose) daily. His INR is therapeutic - he is being discharged on alternating 2 mg of coumadin and 2.5 mg (both every other day). Next INR check 03/30/19 - results to provider at the [facility]. He was initiated on oxycodone for pain control. (chronic hip pain and lower back pain). He has a pulmonary appointment at [facility] for his interestitial lung disease, not in exacerbation on this admission (no evidence of infection on repeat CT). He is medically stable for discharge to SNF ([facility]) today. Care for patient as well as preparation of his discharge summary on day of discharge took 40 minutes. Home Meds and New Rx's Prescriptions: New ipratropium-albuterol 0.5 mg-3 mg(2.5 mg base)/3 mL Solution For Nebulization 3 ml UPD Q6H Qty: 0 RF: 0 albuterol sulfate 2.5 mg /3 mL (0.083 %) Solution For Nebulization 2.5 mg UPD Q2H PRN PRNQty: 0 RF: 0 Novolog Flexpen U-100 Insulin 100 unit/mL (3 mL) Insulin Pen See Rx Instructions .ROUTE .COMPLEX Qty: 0 RF: 0 Levemir FlexTouch U-100 Insuln 100 unit/mL (3 mL) Insulin Pen 10 units subcut DAILY Qty: 0 RF: 0 oxycodone 5 mg Tablet 5 mg PO Q4H PRN PRNQty: 30 RF: 0 Continued finasteride 5 MG tablet 5 mg PO DAILY Qty: 90 RF: 3 calcium carbonate-vitamin D3 1 EACH tablet 2 ea PO DAILY RF: 0 fluoxetine [Prozac] 10 MG capsule 30 mg PO DAILY RF: 0 nitroglycerin [Nitrostat] 0.4 MG tablet, sublingual 0.4 mg Buccal PRN PRNRF: 0 pyridoxine (vitamin B6) [Vitamin B-6] 50 MG tablet 50 mg PO DAILY RF: 0 fluticasone propionate [Flonase Allergy Relief] 9.9 ML spray,suspension 9.9 ml NS BID PRNRF: 0 rosuvastatin [Crestor] 40 MG tablet 40 mg PO HS RF: 0 amlodipine 5 mg tablet 5 mg PO DAILY RF: 0 bupropion HCl 150 mg tablet extended release 24 hr 150 mg PO QAM RF: 0 pantoprazole 40 mg tablet,delayed release (DR/EC) 40 mg PO DAILY RF: 0 tamsulosin [Flomax] 0.4 mg capsule 0.4 mg PO DAILY RF: 0 calcitonin (salmon) 200 unit/actuation spray,non-aerosol 1 spray INTRANA AL DAILY RF: 0 docusate sodium 100 mg capsule 100 mg PO DAILY RF: 0 lidocaine-prilocaine 2.5-2.5 % cream 1 applic TP PRN RF: 0 melatonin 10 mg tablet 10 mg PO HS PRNRF: 0 folic acid 1 MG tablet 1 mg PO QAM RF: 0 sennosides [senna] 8.6 mg Tablet 17.2 mg PO QHS PRNRF: 0 liothyronine [Cytomel] 5 mcg Tablet 5 mcg PO DAILY RF: 0 acetaminophen 500 mg Tablet 500 mg PO BID RF: 0 ipratropium bromide 0.03 % [place],Non-Aerosol 2 spray INTRANASAL QID PRNRF: 0 Saccharomyces boulardii 250 mg Capsule 250 mg PO DAILY RF: 0 diclofenac sodium [Voltaren] 1 % Gel 1 % TOPICAL TID PRN (Reason: Pain) RF: 0 cholecalciferol (vitamin D3) [Vitamin D3] 2,000 unit Capsule 2,000 unit PO DAILY RF: 0 mesalamine [Delzicol] 400 mg Capsule (With Del Rel Tablets) 1,200 mg PO BID RF: 0 leflunomide 20 mg Tablet 20 mg PO DAILY RF: 0 levothyroxine 150 mcg Tablet 150 mcg PO DAILY@0600 Qty: 30 RF: 0 acidophilus-pectin, citrus 25 million cell -100 mg Tablet 1 cap PO TID Qty: 90 RF: 0 ProAir RespiClick 90 MCG aerosol powdr breath activated 2 puff Inhalation QID PRN PRNRF: 0 Spironolactone 50 MG tablet 50 mg PO DAILY RF: 0 Changed methylprednisolone 4 MG tablet 16 mg PO DAILY Qty: 0 RF: 0 warfarin [Coumadin] 1 MG tablet See Rx Instructions .ROUTE .COMPLEX Qty: 0 RF: 0 Discontinued Levemir FlexTouch U-100 Insuln 100 unit/mL (3 mL) insulin pen 35 units subcut DAILY RF: 0 Levemir FlexTouch U-100 Insuln 100 unit/mL (3 mL) Insulin Pen 25 unit SUBCUT HS RF: 0 Discharge Instructions Additional Instructions: Follow up with pulmonology and rheumatology as previously scheduled. Care Plan Goals: Will need a nebulizer machine and an rx for nebs on discharge from SNF. Stand Alone Forms: Nursing Discharge Form Referrals: Korin Florian [Primary Care Provider] - Activity:: Activity as Tolerated Equipment/Supplies:: No Equipment Needed Diet:: Carb Counting Discharge Orders Discharge Orders: Discharge Order (Routine); Ordered 03/28/19 Ordered By: Kerry Reed DS: Summary Status at Discharge Functional status at discharge: uses cane/walker Overall status at discharge: patient is progressing back to baseline Mental Status: mental status grossly normal Speech and Movement: speech and movement normal Mood: congruent mood Affect: normal affect Exam Narrative Exam Narrative: General: very pleasant elderly male, A&OX3, Sitting at the edge of the bed, in great spirits HEENT: EOMI, MMM Heart: RRR, no m/r/g Lungs: CTAB, possibly slightly coarse GI: abdomen is soft, nontender, nondistended Extremities: trace edema at B ankles; no c/c BLE's Psych Mental Status: mental status grossly normal Speech and Movement: speech and movement normal Mood: congruent mood Affect: normal affect DS: Data Vitals/I&O Vitals and I&O: Vital Signs Temperature 36.5 C 03/28/19 07:34 Temperature Source Tympanic 03/28/19 07:34 Pulse 82 03/28/19 12:05 Pulse Rhythm Irregular 03/28/19 07:00 Respiratory Rate 16 03/28/19 12:05 Respiratory Effort Non-Labored 03/28/19 07:00 Respiratory Depth Normal 03/28/19 07:00 Respiratory Pattern Normal 03/28/19 07:00 Blood Pressure 157/78 H 03/28/19 07:34 Pulse Oximetry 96 03/28/19 12:05 Oxygen Delivery Method Room Air 03/28/19 11:50 Oxygen Flow Rate 0 03/28/19 11:50 Fraction of Inspired Oxygen (FIO2) 21 03/28/19 11:53 Pain Level 8 03/28/19 07:57 Comment 03/23/19 08:00 Intake & Output 03/27/19 03/28/19 03/28/19 23:59 11:59 23:59 Intake Total 740 / 1020 Balance 740 / -5 Intake: IV 20 / 60 Oral 720 / 960 Other: Urine Appearance Clear Clear Data Completed and Pending Completed studies during hospitalization [Text1]: CXR 03/22/19: No acute abnormality. CT c-spine 03/22/19: Degenerative changes. No acute abnormality. CXR 03/25/19: Cardiomegaly and chronic interstitial changes. No significant change in right upper lobe infiltrate. CT chest 03/25/19: Severe chronic interstitial changes. Vague areas of ground- glass opacities, greatest in the right upper lobe, which show some interval improvement. No focal area of consolidation is seen. Labs on day of discharge: Labs from last 24 hours 03/28/19 03/28/19 07:30 07:30 PT 24.0 H INR 2.4 H Sodium 140 Potassium 4.3 Chloride 106 Carbon Dioxide 24.6 Anion Gap 9.4 BUN 17 Creatinine 0.92 Estimated GFR/1.73 m2 >= 60.00 Glucose 91 Calcium 8.6 Magnesium 1.7 L PFSH Medical History Adrenal insufficiency (Chronic) Benign prostatic hyperplasia (Acute 07/03/15) Coronary artery disease (Chronic) Crohns disease (Chronic) Diabetes mellitus, type II, insulin dependent (Acute) DVT (deep venous thrombosis) (Chronic) Erectile dysfunction of organic origin (Acute 07/03/15) GERD (gastroesophageal reflux disease) GI bleed (Chronic) Graves disease (Acute) Hyperlipidemia (Acute) Hypertension (Chronic) Hypothyroidism (Chronic) Obstructive sleep apnea (Chronic) Peripheral neuropathy (Chronic) Rheumatoid arthritis (Chronic) Sensorineural hearing loss, bilateral (Acute 01/28/15) Stroke (Chronic) 2018 Traumatic compression fracture of T12 thoracic vertebra (Acute) Vitamin B12 deficiency (Acute) Vitamin B6 deficiency (Acute) Vitamin D deficiency (Acute) Surgical History Graves' eye disease (Acute) s/p surgery H/O lumbosacral spine surgery (Acute) Prosthesis, Penile implant Family History Father Asthma Sister Asthma Social History Smoking/Tobacco Use Status: Never Alcohol Intake: never Drug use: Never Substance use type: does not use Household members: spouse Number of Children: 5 current occupation: Retired [employer] What is your relationship status?: Panel score (0-1 are the most socially isolated patients): 1 Do you feel safe at home: Yes Do you feel safe in your relationship?: Yes
--- NOTE | 2019-03-28 17:55 | PDOC.CMDIS ---
LACE Index Scoring Tool - Questions: Acuity (Admit via E.D.?): Yes Care Management Discharge Reason for Hospitalization: Generalized weakness, fall at home, hypotension, and dehydration. Discharge Plan: Miguel will discharge to [facility], he will transport via wheelchair van. The facility will manage his further service needs. Patient/Family Education Needs: Review of discharge instructions and transfer process. Services Needed at Discharge: Half-Way Facility ([facility]), Transportation (W/C van provided by the Rehab)
--- NOTE | 2019-03-29 16:35 | INDS_ITS ---
Date of service: 03/29/19 Time of Service: 16:35 PT Notes Inpatient Physical Therapy Discharge Summary Dates: 03/29/2019 Dates of Service: 03/23/2019 through 03/26/2019 This is a clinical summary of care provided on the duration of dates listed above. No charge was made in the completion of this documentation. Referring Doctor: Kirill Mtz MD PT Orders: PT CONSULT: Non-urgent Precautions: Fall. Standard. Activity as tolerated. Patient Profile/Admitting Diagnosis: Patient is a 73-year-old male with past medical history significant for chronic vertigo as well as RA and Crohn's disease maintained maintained on steroids and immunosuppressive therapy who pres ented to the ED on 03/22/2019 with chief complaints of general weakness, neck and bilateral shoulder pain, and fall due to weakness. Patient is diagnosed with generalized weakness, fall, suspected interstitial lung disease, type 2 diabetes mellitus. PMHX: Medical History Adrenal insufficiency (Chronic) Benign prostatic hyperplasia (Acute 07/03/15) Coronary artery disease (Chronic) Crohns disease (Chronic) Diabetes mellitus, type II, insulin dependent (Acute) DVT (deep venous thrombosis) (Chronic) Erectile dysfunction of organic origin (Acute 07/03/15) GERD (gastroesophageal reflux disease) GI bleed (Chronic) Graves disease (Acute) Hyperlipidemia (Acute) Hypertension (Chronic) Hypothyroidism (Chronic) Obstructive sleep apnea (Chronic) Peripheral neuropathy (Chronic) Rheumatoid arthritis (Chronic) Sensorineural hearing loss, bilateral (Acute 01/28/15) Stroke (Chronic) 2017 Traumatic compression fracture of T12 thoracic vertebra (Acute) Vitamin B12 deficiency (Acute) Vitamin B6 deficiency (Acute) Vitamin D deficiency (Acute) Social History/Home Situation: Patient lives with his in a private home with no steps to enter his home. Patient has been non-ambulatory for several months now. His works during the day and patient is left alone at home. He has been on and off PT services for low back pain issues, falls, and imapired mobility. Equipment Owned/DME: Electric wheelchair, FWW, SC Subjective: NT Objective: General Observation:NT Mental Status: NT Pain: NT ROM: Right Upper Extremity: Shoulder Flexion WFL. Shoulder abduction WFL. Elbow flexion WFL. Wrist flexion WFL. Functional opening and closing of hand WFL. Left Upper Extremity: Shoulder Flexion WFL. Shoulder abduction WFL. Elbow flexion WFL. Wrist flexion WFL. Functional opening and closing of hand WFL. Right Lower Extremity: Hip flexion WFL. Hip abduction WFL. Knee flexion WFL. Ankle dorsiflexion WFL. Ankle plantarflexion WFL. Left Lower Extremity: Hip flexion WFL. Hip abduction WFL. Knee flexion WFL. Ankle dorsiflexion WFL. Ankle plantarflexion WFL. Strength: Right Upper Extremity: Shoulder flexors 4/5. Shoulder abductors 4/5. Elbow flexors 4/5. Elbow extensors 4/5. Electron Beam Photo Mask Technician strong. Left Upper Extremity: Shoulder flexors 4/5. Shoulder abductors 4/5. Elbow flexors 4/5. Elbow extensors 4/5. Electron Beam Photo Mask Technician strong. Right Lower Extremity: Hip flexors 4/5. Hip abductors 5/5. Knee extensors 4/5. Ankle dorsiflexors 5/5. Ankle plantarflexors 5/5. Left Lower Extremity:Hip flexors 4/5. Hip abductors 5/5. Knee extensors 5/5. Ankle dorsiflexors 5/5. Ankle plantarflexors 5/5. Bed Mobility/Transfers: Rolling independent Supine to sit independent Sit to supine independent Sit to stand SBA Stand to sit SBA Bed to chair SBA Chair to bed SBA Gait: Patient is able to tolerate level surface ambulation of 75' + 150' with FWW with SBA and wheelchair follow with 1 standing rest. He was however mildly breathless after the activity. Balance: Static Sitting: Good Dynamic Sitting:Good Static Standing: Fair Dynamic Standing: Fair Assessment: Patient is a 73-year-old male with past medical history significant for chronic vertigo as well as RA and Crohn's disease maintained maintained on steroids and immunosuppressive therapy who presented to the ED on 03/22/2019 with chief complaints of general weakness, neck and bilateral shoulder pain, and fall due to weakness. Patient is diagnosed with generalized weakness, fall, suspected interstitial lung disease, type 2 diabetes mellitus. He previously used an electric wheelchair for ambulation and had a fall recently during a transfer from his bed. He was discharged from this facility most recently with being independent with FWW for short distance ambulation of about 50 feet using the front-wheeled walker. He did not complain of vertigo nor dizziness throughout PT evaluation. His prognosis is good for achieving goals listed below. Patient continues to present with clinical signs and symptoms consistent with current/admitting diagnoses that have resulted to mobility limitations, gait instability, generalized weakness, and impairment of motor control as demonstrated by the following impairment level findings: 1. Decreased strength to B LE major muscle groups 2. Impaired standing balance 3. Impaired activity tolerance Impairments continue to contribute to the following functional limitations: 1. Increased dependence with transfers 2. Inability to safely ambulate without assistive device and physical assistance 3. Increase completion time for mobility ADL performance 4. Increased fall risk 5. Inability to negotiate steps alone safely Goals: Goals X1 week 1. Supine-Sit independent MET 2. Sit-Supine independent MET 3. Sit-Stand independent NOT MET 4. Stand-Sit independent NOT MET 5. Independent with pivot transfer using a FWW NOT MET 6. Independent with level surface ambulation of at least 300 feet using FWW with no dyspnea nor pain NOT MET DISCHARGE RECOMMENDATIONS: Patient will benefit from intermediate facility placement in order to progress mobility level, strength, and balance in preparation for a safe discharge to home. TREATMENT CODE/TIME: NC. Thank you very much for this referral. Nadia Mccormick PT, DPT, CLT [facility]
== END 2019-03-28 13:21 | disposition skilled nursing facility (03) | DRG 644 ==
LOC: ER 13:14 → MS 17:07
PROVIDERS: Admitting Provider Internal Medicine; Emergency Provider Physician Assistant; PCP Nurse Practitioner Family; Visit Provider Internal Medicine
DX: E27.3 Drug-induced adrenocortical insufficiency (principal); N17.9 Acute kidney failure, unspecified; K50.90 Crohn's disease, unspecified, without complications; E87.2 Acidosis; T38.0X6A Underdosing of glucocorticoids and synthetic analogues, initial encounter; Z91.138 Patient's unintentional underdosing of medication regimen for other reason; R53.1 Weakness; E86.0 Dehydration; I95.9 Hypotension, unspecified; G89.29 Other chronic pain; M25.552 Pain in left hip; J98.4 Other disorders of lung; I10 Essential (primary) hypertension; E11.42 Type 2 diabetes mellitus with diabetic polyneuropathy; Z79.4 Long term (current) use of insulin; I25.10 Atherosclerotic heart disease of native coronary artery without angina pectoris; I25.2 Old myocardial infarction; Z95.5 Presence of coronary angioplasty implant and graft; G47.33 Obstructive sleep apnea (adult) (pediatric); Z79.52 Long term (current) use of systemic steroids; Z86.73 Personal history of transient ischemic attack (TIA), and cerebral infarction without residual deficits; R26.2 Difficulty in walking, not elsewhere classified; M06.9 Rheumatoid arthritis, unspecified; E03.9 Hypothyroidism, unspecified; E78.5 Hyperlipidemia, unspecified; F32.9 Major depressive disorder, single episode, unspecified; Z86.718 Personal history of other venous thrombosis and embolism; Z79.01 Long term (current) use of anticoagulants; G40.909 Epilepsy, unspecified, not intractable, without status epilepticus; Z66 Do not resuscitate
CPT/HCPCS: 36410; 36415; 36416; 71250; 80048; 80053; 82962; 87040; 93005; 96361; 96374; 96375; 97162; 97165; 97530; 97535; 99222; 99232; 99233; 99239; 99285; 71045; 71046; 72125; 81003; 83605; 83735; 84484; 85025; 85610; 85730; 93010; 94640; 94660; 99219; 99225; G0378; J0295; J1720; J3490; J7509; J7620

== ENCOUNTER 2019-04-10 10:05 | Outpatient (CLI) | payer MEDICARE, SELFPAY ==
[2019-04-10 11:06] LABS: Abs Immature Grans 0.02 k/cumm (0.0-0.09); Absolute Eosinophil Count 0.15 k/cumm (0.0-0.7); Absolute Lymphocyte Count 2.02 k/cumm (1.2-3.4); Absolute Monocyte Count 0.32 k/cumm (0.11-0.7); Absolute Neutrophil Count 3.26 k/cumm (1.2-6.7); Eosinophils % 2.6; HCT 34.7 % (40.0-50.0); Immature Grans % 0.3; Mean Corp. HGB Concentration 31.7 g/dL (32.0-36.0); Mean Corpuscular Hemoglobin 31.5 pg (27.0-33.0); Mean Corpuscular Volume 99.4 fL (80-95); Monocytes % 5.5; Neutrophils % 56.6; Platelet Count 213 x1000/uL (130-400); RBC 3.49 m/cumm (4.50-6.00); RBC Distribution Width 16.9 % (11.8-14.1); White Blood Cell Count 5.77 k/cumm (4.4-10.8)
[2019-04-10 11:28] LABS: ALT 34 U/L (16-63); AST 13 U/L (15-37); Albumin 3.2 g/dL (3.4-5.0); Alkaline Phosphatase 64 U/L (46-116); Anion Gap 11.9 mmol/L (3-11); BUN 20 mg/dL (7-18); Bilirubin, Direct 0.14 mg/dL (0.00-0.20); Bilirubin, Total 0.4 mg/dL (0.2-1.0); CO2 24.1 mmol/L (21.0-32.0); CREATININE 0.98 mg/dL (0.70-1.30); Calcium 9.2 mg/dL (8.5-10.1); Chloride 104 mmol/L (98-107); Glucose 168 mg/dL (74-106); Potassium 3.9 mmol/L (3.5-5.1); Sodium 140 mmol/L (136-145); Total Protein 6.6 g/dL (6.4-8.2)
== END 2019-04-10 10:25 ==
PROVIDERS: PCP Nurse Practitioner Family; Visit Provider Nurse Practitioner Adult Health
DX: Z79.899 Other long term (current) drug therapy (principal); F32.9 Major depressive disorder, single episode, unspecified; E78.5 Hyperlipidemia, unspecified; E11.42 Type 2 diabetes mellitus with diabetic polyneuropathy; I25.2 Old myocardial infarction
CPT/HCPCS: 36415; 80053; 80076; 85025

== ENCOUNTER 2019-04-17 13:00 | Outpatient (RCR) | payer MEDICARE, SELFPAY ==
[2019-04-17 14:10] LABS: Abs Immature Grans 0.04 k/cumm (0.0-0.09); Absolute Basophil Count 0.01 k/cumm (0.0-0.2); Absolute Eosinophil Count 0.03 k/cumm (0.0-0.7); Absolute Lymphocyte Count 0.65 k/cumm (1.2-3.4); Absolute Monocyte Count 0.26 k/cumm (0.11-0.7); Absolute Neutrophil Count 5.75 k/cumm (1.2-6.7); Basophils % 0.1; Eosinophils % 0.4; HCT 33.7 % (40.0-50.0); HGB 10.7 g/dL (13.5-17.5); Immature Grans % 0.6; Lymphocytes % 9.6; Mean Corp. HGB Concentration 31.8 g/dL (32.0-36.0); Mean Corpuscular Hemoglobin 31.5 pg (27.0-33.0); Mean Corpuscular Volume 99.1 fL (80-95); Mean Platelet Volume 10.6 fL (8.0-11.0); Monocytes % 3.9; Neutrophils % 85.4; Platelet Count 237 x1000/uL (130-400); White Blood Cell Count 6.74 k/cumm (4.4-10.8)
[2019-04-17] MEDS: VEDOLIZUMAB 300 MG in Normal Saline 250 ML 500 MG IVPB (14:17)
[2019-04-17] MEDS: Acetaminophen 325 MG TAB 650 MG PO (14:17)
[2019-04-17] MEDS: Loratidine 10 MG TAB PO (14:17)
[2019-04-17] MEDS: Normal Saline Flush 10 ML SYR IVP (14:18)
[2019-04-17 14:30] LABS: ALT 22 U/L (16-63); AST 15 U/L (15-37); Albumin 3.1 g/dL (3.4-5.0); Alkaline Phosphatase 60 U/L (46-116); Bilirubin, Total 0.4 mg/dL (0.2-1.0); C-Reactive Protein 0.18 mg/dL (0.0-0.3); Total Protein 6.8 g/dL (6.4-8.2)
[2019-06-19] MEDS: Loratidine 10 MG TAB PO (12:21)
[2019-06-19] MEDS: VEDOLIZUMAB 300 MG in Normal Saline 250 ML 500 MG IVPB (12:44)
[2019-06-19] MEDS: Normal Saline Flush 10 ML SYR IVP (12:45)
== END 2019-05-08 23:59 | disposition other institution (70) ==
LOC: INF 13:00
PROVIDERS: Internal Medicine Gastroenterology; PCP Nurse Practitioner Family; Visit Provider Family Medicine
DX: K50.90 Crohn's disease, unspecified, without complications (principal)
CPT/HCPCS: 36415; 80076; 96365; 85025; 86140; J3380

== ENCOUNTER 2019-05-09 16:54 | Outpatient (RCR) | payer MEDICARE, SELFPAY | END 2019-06-08 23:59 | disposition home or self-care (01) | LOC: INF 16:54 | PROVIDERS: PCP Nurse Practitioner Family; Visit Provider Family Medicine | DX: R69 Illness, unspecified (principal) ==

== ENCOUNTER 2019-06-19 17:00 | Outpatient (RCR) | payer MEDICARE, SELFPAY | END 2019-07-07 23:59 | disposition home or self-care (01) | LOC: INF 17:00 | PROVIDERS: PCP Nurse Practitioner Family; Visit Provider Family Medicine | DX: K50.90 Crohn's disease, unspecified, without complications (principal) | CPT/HCPCS: 96365; J3380 ==

== ENCOUNTER 2019-08-14 03:24 | Outpatient (RCR) | payer MEDICARE, MEDICAID, SELFPAY ==
[2019-08-14] MEDS: Acetaminophen 325 MG TAB 650 MG PO (12:30)
[2019-08-14] MEDS: Loratidine 10 MG TAB PO (12:30)
[2019-08-14 12:41] LABS: Abs Immature Grans 0.04 k/cumm (0.0-0.09); Absolute Basophil Count 0.02 k/cumm (0.0-0.2); Absolute Eosinophil Count 0.24 k/cumm (0.0-0.7); Absolute Lymphocyte Count 1.41 k/cumm (1.2-3.4); Absolute Monocyte Count 0.66 k/cumm (0.11-0.7); Absolute Neutrophil Count 6.98 k/cumm (1.2-6.7); Basophils % 0.2; Eosinophils % 2.6; HCT 32.5 % (40.0-50.0); HGB 10.3 g/dL (13.5-17.5); Immature Grans % 0.4 %; Lymphocytes % 15.1; Mean Corp. HGB Concentration 31.7 g/dL (32.0-36.0); Mean Corpuscular Hemoglobin 31.7 pg (27.0-33.0); Mean Platelet Volume 10.3 fL (8.0-11.0); Monocytes % 7.1; Neutrophils % 74.6; Platelet Count 325 x1000/uL (130-400); RBC 3.25 m/cumm (4.50-6.00); RBC Distribution Width 15.9 % (11.8-14.1); White Blood Cell Count 9.35 k/cumm (4.4-10.8)
[2019-08-14 13:06] LABS: ALT 21 U/L (16-63); AST 16 U/L (15-37); Albumin 3.4 g/dL (3.4-5.0); Alkaline Phosphatase 77 U/L (46-116); Bilirubin, Direct 0.21 mg/dL (0.00-0.20); Bilirubin, Total 0.5 mg/dL (0.2-1.0); C-Reactive Protein 0.71 mg/dL (0.0-0.3); Total Protein 7.9 g/dL (6.4-8.2)
[2019-08-14] MEDS: VEDOLIZUMAB 300 MG in Normal Saline 250 ML 500 MG IVPB (13:15)
[2019-08-14] MEDS: Normal Saline Flush 10 ML SYR IVP (13:16)
== END 2019-09-06 23:59 | disposition home or self-care (01) ==
LOC: INF 03:24
PROVIDERS: PCP Nurse Practitioner Family; Visit Provider Family Medicine
DX: M06.9 Rheumatoid arthritis, unspecified (principal); K50.90 Crohn's disease, unspecified, without complications
CPT/HCPCS: 36415; 80076; 96365; 85025; 86140; J3380

== ENCOUNTER 2019-10-05 16:21 | Outpatient (REF) | payer MEDICARE, SELFPAY ==
[2019-10-08 10:09] LABS: Hemoglobin A1C 8.1 % (3.8-5.6)
== END 2019-10-05 16:41 ==
LOC: NCHCN 16:21
PROVIDERS: PCP Nurse Practitioner Family; Visit Provider Nurse Practitioner Family
DX: E11.9 Type 2 diabetes mellitus without complications (principal)
CPT/HCPCS: 80053; 83036

== ENCOUNTER 2019-10-09 02:47 | Outpatient (RCR) | payer MEDICARE, MEDICAID, SELFPAY ==
[2019-10-09] MEDS: Acetaminophen 325 MG TAB 650 MG PO (12:17)
[2019-10-09] MEDS: Loratidine 10 MG TAB PO (12:18)
[2019-10-09] MEDS: Normal Saline Flush 10 ML SYR IVP (12:19)
[2019-10-09] MEDS: VEDOLIZUMAB 300 MG in Normal Saline 250 ML 500 MG IVPB (12:41)
== END 2019-11-06 23:59 | disposition home or self-care (01) ==
LOC: INF 02:47
PROVIDERS: PCP Nurse Practitioner Family; Visit Provider Family Medicine
DX: K50.90 Crohn's disease, unspecified, without complications (principal)
CPT/HCPCS: 96365; J3380

== ENCOUNTER 2019-10-25 15:05 | Emergency (ER) | payer MEDICARE, MEDICAID, SELFPAY ==
[2019-10-25] VITALS (22 sets, daily range): BP systolic 132–194; BP diastolic 68–97; PULSE 70–104; RESP 14–23; TEMP 36.9–37.5; O2SAT 97–99
--- NOTE | 2019-10-25 15:47 | ED.GENADUL_ITS ---
Discharge Plan Disposition Patient Disposition: HOME Condition: Improving Discharge Details Chief Complaint: Fever Clinical Impression: Chills Primary Care Provider: Korin Florian ED Provider: Baldev Burrell Home Meds and New Rx's Prescriptions: New cephalexin 500 mg capsule 500 mg PO TID 7 Days Qty: 21 RF: 0 Continued finasteride 5 MG tablet 5 mg PO DAILY Qty: 90 RF: 3 calcium carbonate-vitamin D3 1 EACH tablet 2 ea PO DAILY RF: 0 fluoxetine [Prozac] 10 MG capsule 30 mg PO DAILY RF: 0 nitroglycerin [Nitrostat] 0.4 MG tablet, sublingual 0.4 mg Buccal PRN PRNRF: 0 pyridoxine (vitamin B6) [Vitamin B-6] 50 MG tablet 50 mg PO DAILY RF: 0 fluticasone propionate [Flonase Allergy Relief] 9.9 ML spray,suspension 9.9 ml NS BID PRNRF: 0 rosuvastatin [Crestor] 40 MG tablet 40 mg PO HS RF: 0 amlodipine 5 mg tablet 5 mg PO DAILY RF: 0 bupropion HCl 150 mg tablet extended release 24 hr 150 mg PO QAM RF: 0 pantoprazole 40 mg tablet,delayed release (DR/EC) 40 mg PO DAILY RF: 0 tamsulosin [Flomax] 0.4 mg capsule 0.4 mg PO DAILY RF: 0 calcitonin (salmon) 200 unit/actuation spray,non-aerosol 1 spray INTRANA AL DAILY RF: 0 docusate sodium 100 mg capsule 100 mg PO DAILY RF: 0 lidocaine-prilocaine 2.5-2.5 % cream 1 applic TP PRN RF: 0 melatonin 10 mg tablet 10 mg PO HS PRNRF: 0 folic acid 1 MG tablet 1 mg PO QAM RF: 0 sennosides [senna] 8.6 mg Tablet 17.2 mg PO QHS PRNRF: 0 liothyronine [Cytomel] 5 mcg Tablet 5 mcg PO DAILY RF: 0 acetaminophen 500 mg Tablet 500 mg PO BID RF: 0 ipratropium bromide 0.03 % G[place]man,Non-Aerosol 2 spray INTRANASAL QID PRNRF: 0 Saccharomyces boulardii 250 mg Capsule 250 mg PO DAILY RF: 0 diclofenac sodium [Voltaren] 1 % Gel 1 % TOPICAL TID PRN (Reason: Pain) RF: 0 cholecalciferol (vitamin D3) [Vitamin D3] 2,000 unit Capsule 2,000 unit PO DAILY RF: 0 mesalamine [Delzicol] 400 mg Capsule (With Del Rel Tablets) 1,200 mg PO BID RF: 0 leflunomide 20 mg Tablet 20 mg PO DAILY RF: 0 levothyroxine 150 mcg Tablet 150 mcg PO DAILY@0600 Qty: 30 RF: 0 acidophilus-pectin, citrus 25 million cell -100 mg Tablet 1 cap PO TID Qty: 90 RF: 0 ipratropium-albuterol 0.5 mg-3 mg(2.5 mg base)/3 mL Solution For Nebulization 3 ml UPD Q6H Qty: 0 RF: 0 albuterol sulfate 2.5 mg /3 mL (0.083 %) Solution For Nebulization 2.5 mg UPD Q2H PRN PRNQty: 0 RF: 0 Novolog Flexpen U-100 Insulin 100 unit/mL (3 mL) Insulin Pen See Rx Instructions .ROUTE .COMPLEX Qty: 0 RF: 0 Levemir FlexTouch U-100 Insuln 100 unit/mL (3 mL) Insulin Pen 10 units subcut DAILY Qty: 0 RF: 0 oxycodone 5 mg Tablet 5 mg PO Q4H PRN PRNQty: 30 RF: 0 methylprednisolone 4 MG tablet 16 mg PO DAILY Qty: 0 RF: 0 warfarin [Coumadin] 1 MG tablet See Rx Instructions .ROUTE .COMPLEX Qty: 0 RF: 0 ProAir RespiClick 90 MCG aerosol powdr breath activated 2 puff Inhalation QID PRN PRNRF: 0 Spironolactone 50 MG tablet 50 mg PO DAILY RF: 0 Discharge Instructions Additional Instructions: Continue all of your regularly prescribed medications. As we discussed, you begin a course of Keflex tonight and continue through the end of the prescription. Return to the emergency department for development of high fever, recurrent shaking chills, or any other acute concerns. Your INR today was 2.7. Medical Decision Making 74-year-old male presents from home with his . He complains of chills that began yesterday and were worse this morning. He did not note a fever at home. He states he has interstitial lung disease and a chronic cough that is unchanged. Said no known sick contacts or recent travel. He will note that he has chronic urinary urgency and frequency for which he is scheduled to have Botox injections at [facility] with the urology department. He arrives with a temperature of 36.9, pulse is approximately 90 on exam, blood pressure 194/97. His exam is reassuring. Differential diagnosis includes UTI, viral syndrome, must exclude coronavirus infection as well as potential pneumonia. Patient referred for laboratory testing, urinalysis, chest x-ray. Chest x-ray with extensive chronic appearing interstitial densities that are not changed versus comparison. Urinalysis shows specific gravity 1.02. Urine culture is pending. CBC with white count 9, hematocrit 32, platelets 310. No clear evidence of acute process. Do feel significantly high risk for prostatitis and occult urine infection. Discussed with him risk benefits and we will proceed with empiric course of Keflex awaiting urine culture. He has pre- standing follow-up in urology clinic. He understands return precautions to the ER which were discussed with patient and his at the bedside prior to discharge. Lab Data Lab results reviewed: Yes I reviewed the patient's lab results. Labs: Laboratory Results - last 24 hr 10/25/19 10/25/19 10/25/19 15:45 16:00 16:00 WBC 9.18 RBC 3.47 L Hgb 10.5 L Hct 32.5 L MCV 93.7 MCH 30.3 MCHC 32.3 RDW 16.0 H Plt Count 310 MPV 11.0 Immature Gran % 0.2 Neutrophils % 73.8 Lymphocytes % 17.5 Monocytes % 6.9 Eosinophils % 1.5 Basophils % 0.1 Absolute Neutrophils 6.77 H Absolute Lymphocytes 1.61 Absolute Monocytes 0.63 Absolute Eosinophils 0.14 Absolute Basophils 0.01 PT INR Sodium 136 Potassium 3.8 Chloride 101 Carbon Dioxide 27.0 Anion Gap 8.0 BUN 20 H Creatinine 1.15 Estimated GFR/1.73 m2 >= 60.00 Glucose 251 H Calcium 9.4 Total Bilirubin 0.6 AST 15 ALT 21 Alkaline Phosphatase 82 Total Protein 7.5 Albumin 3.2 L Urine Color Yellow Urine Clarity Clear Urine pH 6.0 Ur Specific Yale 1.020 Urine Protein Negative Urine Ketones Trace H Urine Blood Negative Urine Nitrite Negative Urine Bilirubin Negative Urine Urobilinogen 0.2 Ur Leukocyte Esterase Negative Urine Glucose 250 H 10/25/19 10/25/19 16:00 16:07 WBC RBC Hgb Hct MCV MCH MCHC RDW Plt Count MPV Immature Gran % Neutrophils % Lymphocytes % Monocytes % Eosinophils % Basophils % Absolute Neutrophils Absolute Lymphocytes Absolute Monocytes Absolute Eosinophils Absolute Basophils PT 26.9 H INR 2.7 H Sodium Potassium Chloride Carbon Dioxide Anion Gap BUN Creatinine Estimated GFR/1.73 m2 Glucose Calcium Total Bilirubin AST ALT Alkaline Phosphatase Total Protein Albumin Urine Color Cancelled Urine Clarity Cancelled Urine pH Cancelled Ur Specific [place] Cancelled Urine Protein Cancelled Urine Ketones Cancelled Urine Blood Cancelled Urine Nitrite Cancelled Urine Bilirubin Cancelled Urine Urobilinogen Cancelled Ur Leukocyte Esterase Cancelled Urine Glucose Cancelled ECG Data Attestation: I personally reviewed and interpreted this ECG (s) as follows: Interpretation: Normal sinus rhythm with a rate of 92, QRS is narrow, no ST segment elevation is present. HPI General Mode of arrival: ambulatory . Date/Time Provider Initiated Documentation: 10/25/19 15:12 . Limitations to Documentation: no limitations . Information obtained by: patient . History of Present Illness 74 year old M presents to the emergency department with the chief complaint of Chills at home yesterday and today, described as mild, Patient reports no radiation. Patient started experiencing this hour(s) and it has been intermittent. No relieving factors improve symptom(s), No exacerbating factors reported . Patient notes other (Chronic cough, no vomiting, chronic dysuria with increased frequency of urine). Patient did receive the following treatments prior to arrival, none Related Data Home Medications Medication Instructions Recorded Confirmed folic acid 1 mg PO QAM 10/13/12 03/22/19 finasteride 5 mg PO DAILY #90 tab-cap 03/29/14 03/22/19 calcium carbonate-vitamin D3 2 ea PO DAILY 07/03/15 03/22/19 fluoxetine [Prozac] 30 mg PO DAILY tab-cap 07/03/15 03/22/19 fluticasone propionate [Flonase 9.9 ml NS BID PRN 07/03/15 03/22/19 Allergy Relief] nitroglycerin [Nitrostat] 0.4 mg BUCCAL PRN PRN tab-cap 07/03/15 03/22/19 pyridoxine (vitamin B6) [Vitamin 50 mg PO DAILY 07/03/15 03/22/19 B-6] rosuvastatin [Crestor] 40 mg PO HS 07/03/15 03/22/19 ProAir RespiClick 2 puff INHALATION QID PRN PRN 10/21/17 03/22/19 Spironolactone 50 mg PO DAILY 10/21/17 03/22/19 amlodipine 5 mg tablet 5 mg PO DAILY 08/23/18 03/22/19 bupropion HCl 150 mg 24 hr tablet, 150 mg PO QAM 08/23/18 03/22/19 extended release calcitonin (salmon) 200 1 spray INTRANA AL DAILY 08/23/18 03/22/19 unit/actuation nasal spray docusate sodium 100 mg capsule 100 mg PO DAILY 08/23/18 03/22/19 lidocaine-prilocaine 2.5 %-2.5 % 1 applic TP PRN gm 08/23/18 03/22/19 topical cream melatonin 10 mg tablet 10 mg PO HS PRN 08/23/18 03/22/19 pantoprazole 40 mg tablet,delayed 40 mg PO DAILY 08/23/18 03/22/19 release tamsulosin 0.4 mg capsule 0.4 mg PO DAILY 08/23/18 03/22/19 Saccharomyces boulardii 250 mg PO DAILY 03/05/19 03/22/19 acetaminophen 500 mg PO BID 03/05/19 03/22/19 cholecalciferol (vitamin D3) 2,000 unit PO DAILY 03/05/19 03/22/19 [Vitamin D3] diclofenac sodium [Voltaren] 1 % TOPICAL TID PRN 03/05/19 03/22/19 ipratropium bromide 2 spray INTRANASAL QID PRN 03/05/19 03/22/19 leflunomide 20 mg PO DAILY 03/05/19 03/22/19 liothyronine [Cytomel] 5 mcg PO DAILY 03/05/19 03/22/19 mesalamine [Delzicol] 1,200 mg PO BID 03/05/19 03/22/19 sennosides [senna] 17.2 mg PO QHS PRN 03/05/19 03/22/19 acidophilus-pectin, citrus 1 cap PO TID #90 tab 03/20/19 03/22/19 levothyroxine 150 mcg PO DAILY@0600 #30 tab 03/20/19 03/22/19 Levemir FlexTouch U-100 Insuln 10 units SUBCUT DAILY #0 ml 03/28/19 Novolog Flexpen U-100 Insulin See Rx Instructions .ROUTE 03/28/19 .COMPLEX #0 ml albuterol sulfate 2.5 mg UPD Q2H PRN PRN #0 ml 03/28/19 ipratropium-albuterol 3 ml UPD Q6H #0 ml 03/28/19 methylprednisolone 16 mg PO DAILY #0 tab 03/28/19 03/22/19 oxycodone 5 mg PO Q4H PRN PRN #30 tab 03/28/19 warfarin [Coumadin] See Rx Instructions .ROUTE 03/28/19 03/22/19 .COMPLEX #0 tab cephalexin 500 mg PO TID 7 Days #21 cap 10/25/19 Previous Rx's Medication Instructions Recorded acidophilus-pectin, citrus 1 cap PO TID #90 tab 03/20/19 levothyroxine 150 mcg PO DAILY@0600 #30 tab 03/20/19 Levemir FlexTouch U-100 Insuln 10 units SUBCUT DAILY #0 ml 03/28/19 Novolog Flexpen U-100 Insulin See Rx Instructions .ROUTE 03/28/19 .COMPLEX #0 ml albuterol sulfate 2.5 mg UPD Q2H PRN PRN #0 ml 03/28/19 ipratropium-albuterol 3 ml UPD Q6H #0 ml 03/28/19 methylprednisolone 16 mg PO DAILY #0 tab 03/28/19 oxycodone 5 mg PO Q4H PRN PRN #30 tab 03/28/19 warfarin [Coumadin] See Rx Instructions .ROUTE 03/28/19 .COMPLEX #0 tab cephalexin 500 mg PO TID 7 Days #21 cap 10/25/19 Allergies Allergy/AdvReac Type Severity Reaction Status Date / Time infliximab Allergy Unknown Verified 10/25/19 15:17 methotrexate AdvReac Mild Unverified 10/25/19 15:17 atorvastatin calcium AdvReac Bones ache. Unverified 10/25/19 15:17 [From Lipitor] RAMICAIN AdvReac Uncoded 10/25/19 15:17 General Stated Complaint: Fever HEMA: 2 Review of Systems Narrative: 6 systems reviewed and otherwise negative [facility] Medical History Adrenal insufficiency (Chronic) Benign prostatic hyperplasia (Acute 07/03/15) Coronary artery disease (Chronic) Crohns disease (Chronic) Diabetes mellitus, type II, insulin dependent (Acute) DVT (deep venous thrombosis) (Chronic) Erectile dysfunction of organic origin (Acute 07/03/15) GERD (gastroesophageal reflux disease) GI bleed (Chronic) Graves disease (Acute) Hyperlipidemia (Acute) Hypertension (Chronic) Hypothyroidism (Chronic) Obstructive sleep apnea (Chronic) Peripheral neuropathy (Chronic) Rheumatoid arthritis (Chronic) Sensorineural hearing loss, bilateral (Acute 01/28/15) Stroke (Chronic) 2018 Traumatic compression fracture of T12 thoracic vertebra (Acute) Vitamin B12 deficiency (Acute) Vitamin B6 deficiency (Acute) Vitamin D deficiency (Acute) Surgical History Graves' eye disease (Acute) s/p surgery H/O lumbosacral spine surgery (Acute) Prosthesis, Penile implant Family History Father Asthma Sister Asthma Social History Smoking/Tobacco Use Status: Former Tobacco Use Alcohol Intake: never Drug use: Never Substance use type: does not use Household members: spouse Number of Children: 5 current occupation: Retired [employer] What is your relationship status?: Panel score (0-1 are the most socially isolated patients): 1 Do you feel safe at home: Yes Do you feel safe in your relationship?: Yes Exam Narrative Exam Narrative: GEN: awake, alert, oriented 3. Pleasant, well groomed, interactive. HEAD: Normocephalic, atraumatic ENT: Mucous membranes moist, oropharynx unremarkable, External ear exam unremarkable EYES: PERRL, EOMI NECK: Full ROM, no RASHAWN, no menigismus CHEST/RESP: Nontender, clear to auscultation bilateral, no wheeze/rhonchi/rales CARDIOVASCULAR: RRR, no murmur, rub naveen. 2+ Rad pulse bilateral ABDOMEN: Soft, nontender, no mass. +Bowel sounds EXT: Full ROM, trace pretibial edema, no rash Neuro: Grossly normal neurologic exam, conversant, interactive. Psych: Speech fluent, thoughts congruent, affect normal Course Vital Signs Vital signs: Vital Signs Temperature 36.9 C 10/25/19 15:12 Pulse 104 H 10/25/19 15:12 Respiratory Rate 18 10/25/19 15:12 Blood Pressure 194/97 H 10/25/19 15:12 Pulse Oximetry 99 10/25/19 15:12 Temperature 36.9 C 10/25/19 15:12 Temperature Source Oral 10/25/19 15:12 Pulse 104 H 10/25/19 15:12 Respiratory Rate 18 10/25/19 15:12 Respiratory Effort 10/25/19 15:16 Blood Pressure 194/97 H 10/25/19 15:12 Blood Pressure Position Supine 10/25/19 15:12 Pulse Oximetry 99 10/25/19 15:12 Oxygen Delivery Method Room Air 10/25/19 15:12 Oxygen Flow Rate 0 10/25/19 15:12 Pain Level 8 10/25/19 15:12
[2019-10-25 16:07] LABS: Bilirubin Negative (Negative); Blood Negative (Negative); Clarity Clear (Clear); Glucose 250 mg/dL (Negative); Ketones Trace mg/dL (Negative); Leukocyte Esterase Negative (Negative); Nitrite Negative (Negative); Urobilinogen 0.2 EU/dL (Up TO 0.2)
[2019-10-25 16:26] LABS: Abs Immature Grans 0.02 k/cumm (0.0-0.09); Absolute Basophil Count 0.01 k/cumm (0.0-0.2); Absolute Eosinophil Count 0.14 k/cumm (0.0-0.7); Absolute Lymphocyte Count 1.61 k/cumm (1.2-3.4); Absolute Monocyte Count 0.63 k/cumm (0.11-0.7); Absolute Neutrophil Count 6.77 k/cumm (1.2-6.7); Basophils % 0.1; Eosinophils % 1.5; HCT 32.5 % (40.0-50.0); HGB 10.5 g/dL (13.5-17.5); Immature Grans % 0.2 %; Lymphocytes % 17.5; Mean Corp. HGB Concentration 32.3 g/dL (32.0-36.0); Mean Corpuscular Hemoglobin 30.3 pg (27.0-33.0); Mean Corpuscular Volume 93.7 fL (80-95); Monocytes % 6.9; Neutrophils % 73.8; Platelet Count 310 x1000/uL (130-400); RBC 3.47 m/cumm (4.50-6.00); White Blood Cell Count 9.18 k/cumm (4.4-10.8)
--- NOTE | 2019-10-25 16:30 | DI.RAD_ITS ---
EXAM: XR PORTABLE CHEST AP CLINICAL HISTORY: subj fever, chills, chr cough TECHNIQUE: 2D digital imaging was performed. COMPARISON: CT CT CHEST WO from 03/25/2019 CR,XR XR PORTABLE CHEST AP from 03/25/2019 FINDINGS: The heart is again noted to be enlarged. There are underlying severe chronic fibrotic changes. No s uperimposed infiltrate, effusion or gross pulmonary edema is seen. There is no evidence of pneumotho rax. IMPRESSION: Severe chronic fibrotic changes. No acute pulmonary findings. DATA REPOSITORY: RADIATION DOSE DELIVERED:
[2019-10-25 16:35] LABS: INR 2.7 (0.9-1.1); Prothrombin Time 26.9 sec (9.3-11.0)
[2019-10-25 16:36] LABS: ALT 21 U/L (16-63); AST 15 U/L (15-37); Albumin 3.2 g/dL (3.4-5.0); Alkaline Phosphatase 82 U/L (46-116); BUN 20 mg/dL (7-18); Bilirubin, Total 0.6 mg/dL (0.2-1.0); CREATININE 1.15 mg/dL (0.70-1.30); Calcium 9.4 mg/dL (8.5-10.1); Chloride 101 mmol/L (98-107); Glucose 251 mg/dL (74-106); Potassium 3.8 mmol/L (3.5-5.1); Sodium 136 mmol/L (136-145); Total Protein 7.5 g/dL (6.4-8.2)
--- NOTE | 2019-10-25 16:46 | DI.VRAD_ITS ---
PROCEDURE INFORMATION: Exam: XR Chest, 1 View Exam date and time: 10/25/2019 4:30 PM Age: 74 years old Clinical indication: Other: Subj fever, chills, chr cough TECHNIQUE: Imaging protocol: XR of the chest Views: 1 view. COMPARISON: CR XR PORTABLE CHEST AP 03/25/2019 12:37 PM FINDINGS: Lungs: Adequate inspiratory effort. Increased the reticular markings throughout both lungs slightly more prominent on the right but essentially identical to March 25, 2019 Pleural space: Unremarkable. No pleural effusion. No pneumothorax. Heart/Mediastinum: Stable of borderline cardiomegaly. Vasculature: Mild ectasia of the thoracic aorta. Bones/joints: Unremarkable. IMPRESSION: Extensive chronic appearing interstitial densities throughout both lungs most likely due to fibrosis since there is no obvious change since March 25, 2019. Dictated and Authenticated by: Santiago Woodruff MD. Ordering:SILVIO De Paz MD
[2019-10-25] MEDS: Cephalexin 500 MG CAP, 2 CAPS/BTL PO (18:31)
[2019-10-26 01:14] LABS: COVID-19 RT-PCR UVMMC Result Negative (Negative)
== END 2019-10-25 18:40 | disposition home or self-care (01) ==
PROVIDERS: Emergency Provider Emergency Medicine; PCP Nurse Practitioner Family
DX: R68.83 Chills (without fever) (principal); R05 Cough; J84.9 Interstitial pulmonary disease, unspecified; Z03.818 Encounter for observation for suspected exposure to other biological agents ruled out; E11.9 Type 2 diabetes mellitus without complications; Z79.4 Long term (current) use of insulin; I10 Essential (primary) hypertension
CPT/HCPCS: 36415; 80053; 87040; 87077; 93005; 99285; U0003; 71045; 81003; 85025; 85610; 87086; 87186; 93010

== ENCOUNTER 2019-12-04 01:59 | Outpatient (RCR) | payer MEDICARE, MEDICAID, SELFPAY ==
[2019-12-04] MEDS: Acetaminophen 325 MG TAB 650 MG PO (12:19)
[2019-12-04] MEDS: Loratidine 10 MG TAB PO (12:19)
[2019-12-04] MEDS: Normal Saline Flush 10 ML SYR IVP (12:20)
[2019-12-04 12:27] LABS: Abs Immature Grans 0.05 10^3/uL (0.0-0.06); Absolute Basophil Count 0.02 10^3/uL (0.0-0.2); Absolute Eosinophil Count 0.06 10^3/uL (0.0-0.7); Absolute Lymphocyte Count 1.02 10^3/uL (1.2-3.4); Absolute Monocyte Count 0.35 10^3/uL (0.1-0.8); Absolute Neutrophil Count 7.75 10^3/uL (1.2-6.7); Basophils % 0.2; Eosinophils % 0.6; HCT 31.8 % (40.0-50.0); Immature Grans % 0.5; MCH 30.1 pg (27.0-33.0); MCHC 31.4 % (32.0-36.0); MCV 95.8 fL (80-95); MPV 10.4 fL (8.0-11.0); Monocytes % 3.8; Neutrophils % 83.9 %; Platelet Count 271 10^3/uL (130-400); RBC 3.32 10^6/uL (4.36-5.78); RDW 16.7 % (11.8-14.1); WBC 9.25 10^3/uL (4.4-10.8)
[2019-12-04] MEDS: VEDOLIZUMAB 300 MG in Normal Saline 250 ML 500 MG IVPB (12:43)
[2019-12-04 13:04] LABS: ALT 20 U/L (16-63); AST 14 U/L (15-37); Albumin 3.2 g/dL (3.4-5.0); Alkaline Phosphatase 65 U/L (46-116); Bilirubin, Direct 0.15 mg/dL (0.00-0.20); Bilirubin, Total 0.4 mg/dL (0.2-1.0); C-Reactive Protein 1.44 mg/dL (0.0-0.3); Total Protein 7.7 g/dL (6.4-8.2)
== END 2019-12-07 23:59 | disposition home or self-care (01) ==
LOC: INF 01:59
PROVIDERS: PCP Nurse Practitioner Family; Visit Provider Family Medicine
DX: K50.90 Crohn's disease, unspecified, without complications (principal)
CPT/HCPCS: 36415; 80076; 96365; 85025; 86140; J3380

== ENCOUNTER 2020-01-01 14:52 | Outpatient (REF) | payer MEDICARE, MEDICAID, SELFPAY ==
[2020-01-01 19:30] LABS: Prothrombin Time 10.4 sec (9.3-11.0)
== END 2020-01-01 15:12 ==
LOC: NCHCN 14:52
PROVIDERS: PCP Nurse Practitioner Family; Visit Provider Family Medicine
DX: Z79.01 Long term (current) use of anticoagulants (principal); Z86.718 Personal history of other venous thrombosis and embolism
CPT/HCPCS: 85610

== ENCOUNTER 2020-01-29 01:22 | Outpatient (RCR) | payer MEDICARE, MEDICAID, SELFPAY ==
[2020-01-29] MEDS: Acetaminophen 325 MG TAB 650 MG PO (12:20)
[2020-01-29] MEDS: Normal Saline Flush 10 ML SYR IVP (12:20)
[2020-01-29] MEDS: Loratidine 10 MG TAB PO (12:20)
[2020-01-29] MEDS: VEDOLIZUMAB 300 MG in Normal Saline 250 ML 500 MG IVPB (13:02)
== END 2020-02-06 23:59 | disposition home or self-care (01) ==
LOC: INF 01:22
PROVIDERS: PCP Nurse Practitioner Family; Visit Provider Family Medicine
DX: K50.80 Crohn's disease of both small and large intestine without complications (principal)
CPT/HCPCS: 96365; J3380

== ENCOUNTER 2020-03-06 02:10 | Outpatient (CLI) | payer MEDICARE, SELFPAY, MEDICAID ==
[2020-03-06 15:33] LABS: Abs Immature Grans 0.04 10^3/uL (0.0-0.06); Absolute Basophil Count 0.01 10^3/uL (0.0-0.2); Absolute Lymphocyte Count 1.68 10^3/uL (1.2-3.4); Absolute Monocyte Count 0.07 10^3/uL (0.1-0.8); Absolute Neutrophil Count 5.66 10^3/uL (1.2-6.7); Basophils % 0.1; HCT 29.6 % (40.0-50.0); HGB 9.3 g/dL (13.5-17.5); Immature Grans % 0.5; Lymphocytes % 22.5; MCH 30.2 pg (27.0-33.0); MCHC 31.4 % (32.0-36.0); MCV 96.1 fL (80-95); MPV 10.4 fL (8.0-11.0); Monocytes % 0.9; Nucleated RBC 0 %; Platelet Count 378 10^3/uL (130-400); RBC 3.08 10^6/uL (4.36-5.78); RDW 15.3 % (11.8-14.1); RDW-SD 53.4 fL; WBC 7.46 10^3/uL (4.4-10.8)
[2020-03-06 15:45] LABS: ALT 18 U/L (16-63); AST 11 U/L (15-37); Albumin 3.2 g/dL (3.4-5.0); Alkaline Phosphatase 82 U/L (46-116); Anion Gap 6.8 mmol/L (3-11); BUN 16 mg/dL (7-18); Bilirubin, Total 0.3 mg/dL (0.2-1.0); C-Reactive Protein 1.79 mg/dL (0.0-0.3); CO2 27.2 mmol/L (21.0-32.0); CREATININE 1.33 mg/dL (0.70-1.30); Calcium 9.5 mg/dL (8.5-10.1); Chloride 99 mmol/L (98-107); Estimated GFR 52.42 (mL/min/1.73m2); Glucose 497 mg/dL (74-106); Potassium 4.2 mmol/L (3.5-5.1); Sodium 133 mmol/L (136-145); Total Protein 7.9 g/dL (6.4-8.2)
[2020-03-06 16:31] LABS: ESR 107 mm/hr (1-20)
== END 2020-03-06 02:30 ==
PROVIDERS: PCP Nurse Practitioner Family; Visit Provider Student in an Organized Health Care Education/Training Program
DX: R79.89 Other specified abnormal findings of blood chemistry (principal); M19.91 Primary osteoarthritis, unspecified site
CPT/HCPCS: 36415; 80053; 85652; 85025; 86140

== ENCOUNTER 2020-03-25 12:00 | Outpatient (RCR) | payer MEDICARE, SELFPAY, MEDICAID ==
[2020-03-25 12:26] LABS: Abs Immature Grans 0.03 10^3/uL (0.0-0.06); Absolute Basophil Count 0.01 10^3/uL (0.0-0.2); Absolute Eosinophil Count 0.02 10^3/uL (0.0-0.7); Absolute Lymphocyte Count 0.73 10^3/uL (1.2-3.4); Absolute Monocyte Count 0.13 10^3/uL (0.1-0.8); Absolute Neutrophil Count 6.14 10^3/uL (1.2-6.7); Basophils % 0.1; Eosinophils % 0.3; HGB 10.9 g/dL (13.5-17.5); Immature Grans % 0.4; Lymphocytes % 10.3; MCH 31.2 pg (27.0-33.0); MCHC 32.1 % (32.0-36.0); MCV 97.4 fL (80-95); MPV 11.1 fL (8.0-11.0); Monocytes % 1.8; Neutrophils % 87.1; Nucleated RBC 0 %; Platelet Count 269 10^3/uL (130-400); RBC 3.49 10^6/uL (4.36-5.78); RDW 18.4 % (11.8-14.1); RDW-SD 65.3 fL; WBC 7.06 10^3/uL (4.4-10.8)
[2020-03-25] MEDS: Loratidine 10 MG TAB PO (12:26)
[2020-03-25] MEDS: Normal Saline Flush 10 ML SYR IVP (12:26)
[2020-03-25] MEDS: Acetaminophen 325 MG TAB 650 MG PO (12:26)
[2020-03-25] MEDS: VEDOLIZUMAB 300 MG in Normal Saline 250 ML 500 MG IVPB (12:43)
[2020-03-25 12:49] LABS: ALT 25 U/L (16-63); AST 14 U/L (15-37); Albumin 3.5 g/dL (3.4-5.0); Alkaline Phosphatase 75 U/L (46-116); Bilirubin, Direct 0.15 mg/dL (0.00-0.20); Bilirubin, Total 0.6 mg/dL (0.2-1.0); C-Reactive Protein 0.95 mg/dL (0.0-0.3); Total Protein 7.5 g/dL (6.4-8.2)
== END 2020-04-07 23:59 | disposition home or self-care (01) ==
LOC: INF 12:00
PROVIDERS: Internal Medicine Gastroenterology; PCP Nurse Practitioner Family; Visit Provider Family Medicine
DX: K50.80 Crohn's disease of both small and large intestine without complications (principal)
CPT/HCPCS: 36415; 80076; 96365; 85025; 86140; J3380

== ENCOUNTER 2020-04-11 14:11 | Emergency (ER) | payer MEDICARE, SELFPAY, MEDICAID ==
[2020-04-11 14:24] VITALS: BP 142/88; PULSE 83; RESP 20; TEMP 36.5; O2SAT 99
--- NOTE | 2020-04-11 14:52 | W.ED.GENAD ---
Discharge Plan Disposition Patient Disposition: HOME Condition: Stable Discharge Details Clinical Impression: Abrasion of cornea, right Primary Care Provider: Korin Florian ED Provider: Miley Barry Home Meds and New Rx's Prescriptions: New erythromycin 5 mg/gram (0.5 %) ointment 0.5 inch ophthalmic (eye) TID 7 Days Qty: 3.5 RF: 0 No Action finasteride 5 MG tablet 5 mg PO DAILY Qty: 90 RF: 3 calcium carbonate-vitamin D3 1 EACH tablet 2 ea PO DAILY RF: 0 fluoxetine [Prozac] 10 MG capsule 30 mg PO DAILY RF: 0 nitroglycerin [Nitrostat] 0.4 MG tablet, sublingual 0.4 mg Buccal PRN PRNRF: 0 pyridoxine (vitamin B6) [Vitamin B-6] 50 MG tablet 50 mg PO DAILY RF: 0 fluticasone propionate [Flonase Allergy Relief] 9.9 ML spray,suspension 9.9 ml NS BID PRNRF: 0 rosuvastatin [Crestor] 40 MG tablet 40 mg PO HS RF: 0 amlodipine 5 mg tablet 5 mg PO DAILY RF: 0 bupropion HCl 150 mg tablet extended release 24 hr 150 mg PO QAM RF: 0 pantoprazole 40 mg tablet,delayed release (DR/EC) 40 mg PO DAILY RF: 0 tamsulosin [Flomax] 0.4 mg capsule 0.4 mg PO DAILY RF: 0 calcitonin (salmon) 200 unit/actuation spray,non-aerosol 1 spray INTRANA AL DAILY RF: 0 docusate sodium 100 mg capsule 100 mg PO DAILY RF: 0 lidocaine-prilocaine 2.5-2.5 % cream 1 applic TP PRN RF: 0 melatonin 10 mg tablet 10 mg PO HS PRNRF: 0 folic acid 1 MG tablet 1 mg PO QAM RF: 0 sennosides [senna] 8.6 mg Tablet 17.2 mg PO QHS PRNRF: 0 liothyronine [Cytomel] 5 mcg Tablet 5 mcg PO DAILY RF: 0 acetaminophen 500 mg Tablet 500 mg PO BID RF: 0 ipratropium bromide 0.03 % Krebs,Non-Aerosol 2 spray INTRANASAL QID PRNRF: 0 Saccharomyces boulardii 250 mg Capsule 250 mg PO DAILY RF: 0 diclofenac sodium [Voltaren] 1 % Gel 1 % TOPICAL TID PRN (Reason: Pain) RF: 0 cholecalciferol (vitamin D3) [Vitamin D3] 2,000 unit Capsule 2,000 unit PO DAILY RF: 0 mesalamine [Delzicol] 400 mg Capsule (With Del Rel Tablets) 1,200 mg PO BID RF: 0 leflunomide 20 mg Tablet 20 mg PO DAILY RF: 0 levothyroxine 150 mcg Tablet 150 mcg PO DAILY@0600 Qty: 30 RF: 0 acidophilus-pectin, citrus 25 million cell -100 mg Tablet 1 cap PO TID Qty: 90 RF: 0 ipratropium-albuterol 0.5 mg-3 mg(2.5 mg base)/3 mL Solution For Nebulization 3 ml UPD Q6H Qty: 0 RF: 0 albuterol sulfate 2.5 mg /3 mL (0.083 %) Solution For Nebulization 2.5 mg UPD Q2H PRN PRNQty: 0 RF: 0 Novolog Flexpen U-100 Insulin 100 unit/mL (3 mL) Insulin Pen See Rx Instructions .ROUTE .COMPLEX Qty: 0 RF: 0 Levemir FlexTouch U-100 Insuln 100 unit/mL (3 mL) Insulin Pen 10 units subcut DAILY Qty: 0 RF: 0 oxycodone 5 mg Tablet 5 mg PO Q4H PRN PRNQty: 30 RF: 0 methylprednisolone 4 MG tablet 16 mg PO DAILY Qty: 0 RF: 0 warfarin [Coumadin] 1 MG tablet See Rx Instructions .ROUTE .COMPLEX Qty: 0 RF: 0 ProAir RespiClick 90 MCG aerosol powdr breath activated 2 puff Inhalation QID PRN PRNRF: 0 Spironolactone 50 MG tablet 50 mg PO DAILY RF: 0 Discharge Instructions Instructions: Corneal Abrasion (ED) Additional Instructions: Please follow-up with ophthalmology in 2 to 3 days. Use antibiotic ointment as directed. Do not rub your eye or flush it with anything as possible. Please take Tylenol or Ibuprofen with food every 4-6 hours as needed for pain and swelling. [facility] Address: [address] [place] [address] [place] [address] Hours: Closes 5PM Referrals: Dani Nguyen MD [ [facility] STAFF PHYSICIAN] - Korin Florian [Primary Care Provider] - Medical Decision Making 74-year-old male presents to the ED with chief complaint of possible foreign body noted to his right eye. He states that this morning he was cutting some wire with pliers and possibly got some piece of metal into his eye. He is attempted multiple times to flush out the eye out prior to arrival with little to no success. He does have a history of dry eyes. He sees an medicare interviewer in [place]. He denies any other complaints at this time. Beatty lamp eye exam performed, anesthesia was given with tetracaine ophthalmic drops, fluorescein strip applied. Forcing uptake in dye noted at 9:00 just adjacent to the iris, no visible foreign body identified. Patient tolerated well. Saline eye flush given after fluorescein exam. Prescription written for erythromycin ophthalmic ointment and instructed to apply 3 times a day x7 days while awake. Instructed to follow-up with ophthalmology within 2 to 3 days. Patient verbalized understanding. HPI General Mode of arrival: ambulatory. Date/Time Provider Initiated Documentation: 04/11/20 14:46. Limitations to Documentation: no limitations. Information obtained by: patient. HPI Narrative: 74-year-old male presents to the ED with chief complaint of possible foreign body noted to his right eye. He states that this morning he was cutting some wire with pliers and possibly got some piece of metal into his eye. He is attempted multiple times to flush the eye out prior to arrival with little to no success. He does have a history of dry eyes. He sees an medicare interviewer in [place]. He denies any other complaints at this time. Related Data Home Medications Medication Instructions Recorded Confirmed folic acid 1 mg PO QAM 10/13/12 03/22/19 finasteride 5 mg PO DAILY #90 tab-cap 03/29/14 03/22/19 calcium carbonate-vitamin D3 2 ea PO DAILY 07/03/15 03/22/19 fluoxetine [Prozac] 30 mg PO DAILY tab-cap 07/03/15 03/22/19 fluticasone propionate [Flonase 9.9 ml NS BID PRN 07/03/15 03/22/19 Allergy Relief] nitroglycerin [Nitrostat] 0.4 mg BUCCAL PRN PRN tab-cap 07/03/15 03/22/19 pyridoxine (vitamin B6) [Vitamin 50 mg PO DAILY 07/03/15 03/22/19 B-6] rosuvastatin [Crestor] 40 mg PO HS 07/03/15 03/22/19 ProAir RespiClick 2 puff INHALATION QID PRN PRN 10/21/17 03/22/19 Spironolactone 50 mg PO DAILY 10/21/17 03/22/19 amlodipine 5 mg tablet 5 mg PO DAILY 08/23/18 03/22/19 bupropion HCl 150 mg 24 hr tablet, 150 mg PO QAM 08/23/18 03/22/19 extended release calcitonin (salmon) 200 1 spray INTRANA AL DAILY 08/23/18 03/22/19 unit/actuation nasal spray docusate sodium 100 mg capsule 100 mg PO DAILY 08/23/18 03/22/19 lidocaine-prilocaine 2.5 %-2.5 % 1 applic TP PRN gm 08/23/18 03/22/19 topical cream melatonin 10 mg tablet 10 mg PO HS PRN 08/23/18 03/22/19 pantoprazole 40 mg tablet,delayed 40 mg PO DAILY 08/23/18 03/22/19 release tamsulosin 0.4 mg capsule 0.4 mg PO DAILY 08/23/18 03/22/19 Saccharomyces boulardii 250 mg PO DAILY 03/05/19 03/22/19 acetaminophen 500 mg PO BID 03/05/19 03/22/19 cholecalciferol (vitamin D3) 2,000 unit PO DAILY 03/05/19 03/22/19 [Vitamin D3] diclofenac sodium [Voltaren] 1 % TOPICAL TID PRN 03/05/19 03/22/19 ipratropium bromide 2 spray INTRANASAL QID PRN 03/05/19 03/22/19 leflunomide 20 mg PO DAILY 03/05/19 03/22/19 liothyronine [Cytomel] 5 mcg PO DAILY 03/05/19 03/22/19 mesalamine [Delzicol] 1,200 mg PO BID 03/05/19 03/22/19 sennosides [senna] 17.2 mg PO QHS PRN 03/05/19 03/22/19 acidophilus-pectin, citrus 1 cap PO TID #90 tab 03/20/19 03/22/19 levothyroxine 150 mcg PO DAILY@0600 #30 tab 03/20/19 03/22/19 Levemir FlexTouch U-100 Insuln 10 units SUBCUT DAILY #0 ml 03/28/19 Novolog Flexpen U-100 Insulin See Rx Instructions .ROUTE 03/28/19 .COMPLEX #0 ml albuterol sulfate 2.5 mg UPD Q2H PRN PRN #0 ml 03/28/19 ipratropium-albuterol 3 ml UPD Q6H #0 ml 03/28/19 methylprednisolone 16 mg PO DAILY #0 tab 03/28/19 03/22/19 oxycodone 5 mg PO Q4H PRN PRN #30 tab 03/28/19 warfarin [Coumadin] See Rx Instructions .ROUTE 03/28/19 03/22/19 .COMPLEX #0 tab erythromycin 0.5 inch OPHTHALMIC (EYE) TID 7 04/11/20 Days #3.5 g Previous Rx's Medication Instructions Recorded acidophilus-pectin, citrus 1 cap PO TID #90 tab 03/20/19 levothyroxine 150 mcg PO DAILY@0600 #30 tab 03/20/19 Levemir FlexTouch U-100 Insuln 10 units SUBCUT DAILY #0 ml 03/28/19 Novolog Flexpen U-100 Insulin See Rx Instructions .ROUTE 03/28/19 .COMPLEX #0 ml albuterol sulfate 2.5 mg UPD Q2H PRN PRN #0 ml 03/28/19 ipratropium-albuterol 3 ml UPD Q6H #0 ml 03/28/19 methylprednisolone 16 mg PO DAILY #0 tab 03/28/19 oxycodone 5 mg PO Q4H PRN PRN #30 tab 03/28/19 warfarin [Coumadin] See Rx Instructions .ROUTE 03/28/19 .COMPLEX #0 tab erythromycin 0.5 inch OPHTHALMIC (EYE) TID 7 04/11/20 Days #3.5 g Allergies Allergy/AdvReac Type Severity Reaction Status Date / Time infliximab Allergy Unknown Verified 04/11/20 14:36 methotrexate AdvReac Mild Unverified 04/11/20 14:36 atorvastatin calcium AdvReac Bones ache. Unverified 04/11/20 14:36 [From Lipitor] RAMICAIN AdvReac Uncoded 04/11/20 14:36 General Stated Complaint: EyeProblem HEMA: 2 Review of Systems All systems reviewed & are unremarkable except as noted in HPI and below Eyes Eyes: Reports dry eyes and Reports irritation Comments: Questionable Foreign body [facility] Medical History (Updated 04/11/20 @ 15:22 by Miley Barry) Adrenal insufficiency Benign prostatic hyperplasia (07/03/15) Coronary artery disease Crohns disease Diabetes mellitus, type II, insulin dependent DVT (deep venous thrombosis) Erectile dysfunction of organic origin (07/03/15) GERD (gastroesophageal reflux disease) GI bleed Graves disease Hyperlipidemia Hypertension Hypothyroidism Obstructive sleep apnea Peripheral neuropathy Rheumatoid arthritis Sensorineural hearing loss, bilateral (01/28/15) Stroke 2018 Traumatic compression fracture of T12 thoracic vertebra Vitamin B12 deficiency Vitamin B6 deficiency Vitamin D deficiency Surgical History Graves' eye disease s/p surgery H/O lumbosacral spine surgery Prosthesis, Penile implant Family History Father Asthma Sister Asthma Social History Smoking/Tobacco Use Status: Former Tobacco Use Smoking risk assessment performed?: Yes Alcohol Intake: never Drug use: Occasionally Substance use type: does not use and marijuana Details: gummy bears 3 times a week for back pain Household members: spouse Number of Children: 5 current occupation: Retired [employer] What is your relationship status?: Panel score (0-1 are the most socially isolated patients): 1 Do you feel safe at home: Yes Do you feel safe in your relationship?: Yes Exam Eyes Periorbital: periorbital findings normal Eyelids: eyelids normal Conjunctivae: conjunctival abnormality right conjunctival injection; without discharge Cornea: corneas abnormal on the right fluorescein used, abrasion linear and at the following clock position (9 OClock) and foreign body (No Foreign body visualized) without a rust ring and fluorescein used Pupils: PERRL EOM: EOM intact bilaterally Eyes/upper lids images: 1. Fluorescein uptake of dye noted presumed corneal abrasion no foreign body visualized Course Vital Signs Vital signs: Vital Signs Temperature 36.5 C 04/11/20 14:24 Pulse 83 04/11/20 14:24 Respiratory Rate 20 04/11/20 14:24 Blood Pressure 142/88 H 04/11/20 14:24 Pulse Oximetry 99 04/11/20 14:24 Temperature 36.5 C 04/11/20 14:24 Temperature Source Temporal Artery Scan 04/11/20 14:24 Pulse 83 04/11/20 14:24 Respiratory Rate 20 04/11/20 14:24 Respiratory Effort 04/11/20 14:27 Blood Pressure 142/88 H 04/11/20 14:24 Blood Pressure Position Sitting 04/11/20 14:24 Pulse Oximetry 99 04/11/20 14:24 Oxygen Delivery Method Room Air 04/11/20 14:24 Oxygen Flow Rate 0 04/11/20 14:24 Pain Level 8 04/11/20 14:24
[2020-04-11] MEDS: Fluorescein STRIPS 100/BOX 1 MG OP (14:54)
[2020-04-11] MEDS: Tetracaine 0.5% 4 ML BTL OP (14:54)
[2020-04-11] MEDS: Balanced Salt Solution 15 ML BTL OP (14:55)
== END 2020-04-11 15:55 | disposition home or self-care (01) ==
PROVIDERS: Emergency Provider Registered Nurse Emergency; PCP Family Medicine
DX: S05.01XA Injury of conjunctiva and corneal abrasion without foreign body, right eye, initial encounter (principal); X58.XXXA Exposure to other specified factors, initial encounter; E11.9 Type 2 diabetes mellitus without complications; Z79.4 Long term (current) use of insulin; I10 Essential (primary) hypertension
CPT/HCPCS: 36416; 82962; 99283

== ENCOUNTER 2020-04-30 14:21 | Day surgery (SDC) | payer MEDICARE, MEDICAID, SELFPAY ==
[2020-04-30] VITALS (18 sets, daily range): BP systolic 115–148; BP diastolic 64–104; PULSE 71–102; RESP 12–18; TEMP 36–36.7; O2SAT 88–100
--- NOTE | 2020-04-30 14:33 | W.ED.GENAD ---
Discharge Plan Disposition Patient Disposition: OTHER Condition: Stable Discharge Details Chief Complaint: ThroatFB Clinical Impression: Food impaction of esophagus Primary Care Provider: Celestine Perkins ED Provider: Santiago Conklin [place] Meds and New Rx's Prescriptions: No Action finasteride 5 MG tablet 5 mg PO DAILY Qty: 90 RF: 3 calcium carbonate-vitamin D3 1 EACH tablet 2 ea PO DAILY RF: 0 nitroglycerin [Nitrostat] 0.4 MG tablet, sublingual 0.4 mg Buccal PRN PRNRF: 0 pyridoxine (vitamin B6) [Vitamin B-6] 50 MG tablet 50 mg PO DAILY RF: 0 fluticasone propionate [Flonase Allergy Relief] 9.9 ML spray,suspension 9.9 ml NS BID PRNRF: 0 rosuvastatin [Crestor] 40 MG tablet 40 mg PO HS RF: 0 amlodipine 5 mg tablet 5 mg PO DAILY RF: 0 bupropion HCl 150 mg tablet extended release 24 hr 150 mg PO QAM RF: 0 pantoprazole 40 mg tablet,delayed release (DR/EC) 40 mg PO DAILY RF: 0 tamsulosin [Flomax] 0.4 mg capsule 0.4 mg PO DAILY RF: 0 calcitonin (salmon) 200 unit/actuation spray,non-aerosol 1 spray INTRANA AL DAILY RF: 0 docusate sodium 100 mg capsule 100 mg PO DAILY RF: 0 lidocaine-prilocaine 2.5-2.5 % cream 1 applic TP PRN RF: 0 melatonin 10 mg tablet 10 mg PO HS PRNRF: 0 folic acid 1 MG tablet 1 mg PO QAM RF: 0 sennosides [senna] 8.6 mg Tablet 17.2 mg PO QHS PRNRF: 0 liothyronine [Cytomel] 5 mcg Tablet 5 mcg PO DAILY RF: 0 acetaminophen 500 mg Tablet 500 mg PO BID RF: 0 ipratropium bromide 0.03 % [place],Non-Aerosol 2 spray INTRANASAL QID PRNRF: 0 Saccharomyces boulardii 250 mg Capsule 250 mg PO DAILY RF: 0 diclofenac sodium [Voltaren] 1 % Gel 1 % TOPICAL TID PRN (Reason: Pain) RF: 0 cholecalciferol (vitamin D3) [Vitamin D3] 2,000 unit Capsule 2,000 unit PO DAILY RF: 0 mesalamine [Delzicol] 400 mg Capsule (With Del Rel Tablets) 1,200 mg PO BID RF: 0 leflunomide 20 mg Tablet 20 mg PO DAILY RF: 0 levothyroxine 150 mcg Tablet 150 mcg PO DAILY@0600 Qty: 30 RF: 0 ipratropium-albuterol 0.5 mg-3 mg(2.5 mg base)/3 mL Solution For Nebulization 3 ml UPD Q6H Qty: 0 RF: 0 albuterol sulfate 2.5 mg /3 mL (0.083 %) Solution For Nebulization 2.5 mg UPD Q2H PRN PRNQty: 0 RF: 0 insulin aspart U-100 [Novolog Flexpen U-100 Insulin] 100 unit/mL (3 mL) Insulin Pen See Rx Instructions .ROUTE .COMPLEX Qty: 0 RF: 0 methylprednisolone 4 MG tablet 12 mg PO DAILY RF: 0 oxycodone 5 mg tablet 5 mg PO Q6H PRN PRNRF: 0 Levemir FlexTouch U-100 Insuln 100 unit/mL (3 mL) insulin pen 35 units subcut DAILY RF: 0 ProAir RespiClick 90 MCG aerosol powdr breath activated 2 puff Inhalation QID PRN PRNRF: 0 Spironolactone 50 MG tablet 50 mg PO DAILY RF: 0 Medical Decision Making 74 yo male with hx of dvt's on xarelto per him, RA, who hasn't taken meds since yesterday as he states around 330pm was eating homefries [place] and [place] toast and felt it get stuck in his lower esophagus. Denies chest pain or pressure or abdominal pain. HE states this happens frequently but it normally passes on its own within a day but this time it hasn't so he came here for an evaluation. He localizes the area where he feels something is stuck in the epigastric region no fevers or vomit but hasn't been eating anything per the patient. Has no abdominal tenderness. He is able to swallow water but states it feels like it's bubbling up into upper esophagus. Suspect possible food impaction vs gastritis, will try effervescent and if this fails discuss with general surgery about endoscopy no relief so discussed with Dr. Quiles who will come evaluate in the meantime in case he needs to go to the OR requests rapid covid testing done dr. quiles is going to take the patient for an egd suspect chronic inflammation based on history. PT and updated of plan and likely d/c home after Differential Diagnosis Differential Diagnosis: esophageal foreign body, gastritis, esophagitis Medical Records Medical records reviewed: Yes I reviewed the patient's medical records. HPI General Mode of arrival: EMS. Date/Time Provider Initiated Documentation: 04/30/20 14:27. Limitations to Documentation: no limitations. Information obtained by: patient. History of Present Illness 74 year old M presents to the emergency department with the chief complaint of something stuck in esophagus', described as moderate, Patient started experiencing this day(s) (1) and it has been constant. No relieving factors improve symptom(s), No exacerbating factors reported . Patient did receive the following treatments prior to arrival, none Related Data Home Medications Medication Instructions Recorded Confirmed folic acid 1 mg PO QAM 10/13/12 04/30/20 finasteride 5 mg PO DAILY #90 tab-cap 03/29/14 04/30/20 calcium carbonate-vitamin D3 2 ea PO DAILY 07/03/15 04/30/20 fluticasone propionate [Flonase 9.9 ml NS BID PRN 07/03/15 04/30/20 Allergy Relief] nitroglycerin [Nitrostat] 0.4 mg BUCCAL PRN PRN tab-cap 07/03/15 04/30/20 pyridoxine (vitamin B6) [Vitamin 50 mg PO DAILY 07/03/15 04/30/20 B-6] rosuvastatin [Crestor] 40 mg PO HS 07/03/15 04/30/20 ProAir RespiClick 2 puff INHALATION QID PRN PRN 10/21/17 04/30/20 Spironolactone 50 mg PO DAILY 10/21/17 04/30/20 amlodipine 5 mg tablet 5 mg PO DAILY 08/23/18 04/30/20 bupropion HCl 150 mg 24 hr tablet, 150 mg PO QAM 08/23/18 04/30/20 extended release calcitonin (salmon) 200 1 spray INTRANA AL DAILY 08/23/18 04/30/20 unit/actuation nasal spray docusate sodium 100 mg capsule 100 mg PO DAILY 08/23/18 04/30/20 lidocaine-prilocaine 2.5 %-2.5 % 1 applic TP PRN gm 08/23/18 04/30/20 topical cream melatonin 10 mg tablet 10 mg PO HS PRN 08/23/18 04/30/20 pantoprazole 40 mg tablet,delayed 40 mg PO DAILY 08/23/18 04/30/20 release tamsulosin 0.4 mg capsule 0.4 mg PO DAILY 08/23/18 04/30/20 Saccharomyces boulardii 250 mg PO DAILY 03/05/19 04/30/20 acetaminophen 500 mg PO BID 03/05/19 04/30/20 cholecalciferol (vitamin D3) 2,000 unit PO DAILY 03/05/19 04/11/20 [Vitamin D3] diclofenac sodium [Voltaren] 1 % TOPICAL TID PRN 03/05/19 04/30/20 ipratropium bromide 2 spray INTRANASAL QID PRN 03/05/19 04/30/20 leflunomide 20 mg PO DAILY 03/05/19 04/30/20 liothyronine [Cytomel] 5 mcg PO DAILY 03/05/19 04/30/20 mesalamine [Delzicol] 1,200 mg PO BID 03/05/19 04/30/20 sennosides [senna] 17.2 mg PO QHS PRN 03/05/19 04/30/20 levothyroxine 150 mcg PO DAILY@0600 #30 tab 03/20/19 04/30/20 albuterol sulfate 2.5 mg UPD Q2H PRN PRN #0 ml 03/28/19 04/30/20 insulin aspart U-100 [Novolog See Rx Instructions .ROUTE 03/28/19 04/30/20 Flexpen U-100 Insulin] .COMPLEX #0 ml ipratropium-albuterol 3 ml UPD Q6H #0 ml 03/28/19 04/30/20 Levemir FlexTouch U-100 Insuln 35 units SUBCUT DAILY 04/11/20 04/30/20 methylprednisolone 12 mg PO DAILY 04/11/20 04/30/20 oxycodone 5 mg PO Q6H PRN PRN 04/11/20 04/30/20 Previous Rx's Medication Instructions Recorded levothyroxine 150 mcg PO DAILY@0600 #30 tab 03/20/19 albuterol sulfate 2.5 mg UPD Q2H PRN PRN #0 ml 03/28/19 insulin aspart U-100 [Novolog See Rx Instructions .ROUTE 03/28/19 Flexpen U-100 Insulin] .COMPLEX #0 ml ipratropium-albuterol 3 ml UPD Q6H #0 ml 03/28/19 Allergies Allergy/AdvReac Type Severity Reaction Status Date / Time infliximab Allergy Unknown Verified 04/11/20 14:36 methotrexate AdvReac Mild Unverified 04/11/20 14:36 atorvastatin calcium AdvReac Bones ache. Unverified 04/11/20 14:36 [From Lipitor] RAMICAIN AdvReac Uncoded 04/11/20 14:36 General Stated Complaint: ThroatFB HEMA: 3 Review of Systems All systems reviewed & are unremarkable except as noted in HPI and below Constitutional Constitutional: Denies chills, Denies fever(s) and Denies weakness Cardiovascular Cardiovascular: Denies chest pain and Denies dyspnea Respiratory Respiratory: Denies cough and Denies dyspnea Gastrointestinal Gastrointestinal: Denies abdominal pain, Denies nausea and Denies vomiting Neurologic Neurologic: Denies weakness Psychiatric Psychiatric: Denies depression [facility] Medical History (Updated 04/30/20 @ 15:31 by Santiago Conklin MD) Adrenal insufficiency Benign prostatic hyperplasia (07/03/15) Coronary artery disease Crohns disease Diabetes mellitus, type II, insulin dependent DVT (deep venous thrombosis) Erectile dysfunction of organic origin (07/03/15) GERD (gastroesophageal reflux disease) GI bleed Graves disease Hyperlipidemia Hypertension Hypothyroidism Obstructive sleep apnea Peripheral neuropathy Rheumatoid arthritis Sensorineural hearing loss, bilateral (01/28/15) Stroke 2018 Traumatic compression fracture of T12 thoracic vertebra Vitamin B12 deficiency Vitamin B6 deficiency Vitamin D deficiency Surgical History Graves' eye disease s/p surgery H/O lumbosacral spine surgery Prosthesis, Penile implant Family History Father Asthma Sister Asthma Social History Smoking/Tobacco Use Status: Former Tobacco Use Smoking risk assessment performed?: Yes Alcohol Intake: never Drug use: Occasionally Substance use type: does not use and marijuana Details: gummy bears 3 times a week for back pain Household members: spouse Number of Children: 5 current occupation: Retired [employer] What is your relationship status?: Panel score (0-1 are the most socially isolated patients): 1 Do you feel safe at home: Yes Do you feel safe in your relationship?: Yes Exam Const General: no acute distress Orientation: alert HENMT Head: normal to inspection Ears: external ears normal General nose exam: external nose normal Mouth: moist mucous membranes Eyes General: appearance normal, both eyes and all related structures Neck Neck: normal visual inspection Resp Effort & Inspection: normal respiratory effort and able to speak in complete sentences Cardio Rate: regular rate GI Palpation: soft and nontender Skin General skin exam: no rashes or lesions noted Neuro General: patient alert and patient oriented x3 Extrem General: normal to inspection Psych Mental Status: mental status grossly normal Course Vital Signs Vital signs: Vital Signs Temperature 36.7 C 04/30/20 14:22 Pulse 71 04/30/20 14:22 Respiratory Rate 18 04/30/20 14:22 Blood Pressure 148/104 H 04/30/20 14:22 Pulse Oximetry 97 04/30/20 14:22 Temperature 36.7 C 04/30/20 14:22 Temperature Source Temporal Artery Scan 04/30/20 14:22 Pulse 71 04/30/20 14:22 Respiratory Rate 18 04/30/20 14:22 Respiratory Effort Non-Labored 04/30/20 14:26 Respiratory Pattern Normal 04/30/20 14:26 Blood Pressure 148/104 H 04/30/20 14:22 Pulse Oximetry 97 04/30/20 14:22 Oxygen Delivery Method Room Air 04/30/20 14:22 Oxygen Flow Rate 0 04/30/20 14:22 Pain Level 7 04/30/20 14:22
[2020-04-30] MEDS: Potassium Bicarbonate/Cit AC 25 MEQ TABLET.EFF PO (14:40)
[2020-04-30 15:05] LABS: Source Nasopharynx
--- NOTE | 2020-04-30 15:26 | SCONE_ITS ---
Date of service: 04/30/20 Time of Service: 15:26 Assessment and Plan Assessment and plan (1) Dysphagia: Status: Acute Assessment and plan: Mr. Padilla is a 74 year old with a history of GERD and dysphagia who comes in today after 24 hours of feeling like food is stuck in the esophagus. He is able to drink small amounts of water, but has pain when the water hits the distal esophagus. He has had EGD's in the past. He states they were normal. Risks, benefits and complications were reviewed with him and he wished to proceed. Risks, benefits and complications have been reviewed. Complications in clude but are not limited to bleeding, pain, perforation, sore throat, aspiration, and adverse reaction to the medications. Questions were entertained and answered to their satisfaction and they wished to proceed. No guarantees were given or implied. Rapid COVID test is being done Proceed with EGD under general Qualifiers: Dysphagia type: esophageal phase Qualified Code(s): R13.10 - Dysphagia, unspecified History of Present Illness History of Present Illness Chief Complaint: dysphagia, ? FB Narrative: Mr. Padilla is a 74 yo male with hx of dvt's on xarelto, RA, who hasn't taken meds since yesterday as he states around 330pm was eating homefries, huston and algerian toast and felt it get stuck in his lower esophagus. Denies chest pain or pressure or abdominal pain. HE states this happens frequently but it normally passes on its own within a day but this time it hasn't so he came to the ER for an evaluation. He localizes the area where he feels something is stuck in the epigastric region no fevers or vomit but hasn't been eating anything per the patient. Has no abdominal tenderness. He is able to swallow water but states it feels like it's bubbling up into upper esophagus. When I walkd in to see him he states that he feels better and wonders if maybe the food has passed. I gave him some water. The first few sips seemed to go down but then he started burping again and feeling like the water was going to come back up. His PMHx is significant for DVT's, CVA, Intersitial lung disease, HTN, GERD, DM, RA, Adrenal insufficiency, FRANCIE and Crohns. Consults Consult date: 04/30/20 Requesting physician: Santiago Conklin Review of Systems Constitutional Constitutional: Denies fever(s), Denies headache(s), Denies night sweats and Denies weakness Eyes Eyes: Denies change in vision ENT Ears, Nose, Mouth, and Throat: Denies headache(s) Cardiovascular Cardiovascular: Denies chest pain, Denies chest pain at rest, Denies irregular heart rhythm, Denies radiating jaw, neck or arm pain and Denies dyspnea Respiratory Respiratory: Denies cough and Denies dyspnea Gastrointestinal Gastrointestinal: Reports as per HPI Genitourinary Genitourinary: Reports system reviewed and no additional complaints, except as documented Musculoskeletal Musculoskeletal: Reports system reviewed and no additional complaints, except as documented Integumentary/Breasts Skin/Breast: Reports system reviewed and no additional complaints, except as documented Neurologic Neurologic: Reports system reviewed and no additional complaints, except as documented, Denies headache(s) and Denies weakness Psychiatric Psychiatric: Reports system reviewed and no additional complaints, except as documented [facility] Medical History (Updated 04/30/20 @ 15:32 by Batool Santoro MD) Adrenal insufficiency Benign prostatic hyperplasia (07/03/15) Coronary artery disease Crohns disease Diabetes mellitus, type II, insulin dependent DVT (deep venous thrombosis) Erectile dysfunction of organic origin (07/03/15) GERD (gastroesophageal reflux disease) GI bleed Graves disease Hyperlipidemia Hypertension Hypothyroidism Obstructive sleep apnea Peripheral neuropathy Rheumatoid arthritis Sensorineural hearing loss, bilateral (01/28/15) Stroke 2018 Traumatic compression fracture of T12 thoracic vertebra Vitamin B12 deficiency Vitamin B6 deficiency Vitamin D deficiency Surgical History Graves' eye disease s/p surgery H/O lumbosacral spine surgery Prosthesis, Penile implant Family History Father Asthma Sister Asthma Social History Smoking/Tobacco Use Status: Former Tobacco Use Smoking risk assessment performed?: Yes Alcohol Intake: never Drug use: Occasionally Substance use type: does not use and marijuana Details: gummy bears 3 times a week for back pain Household members: spouse Number of Children: 5 current occupation: Retired [employer] What is your relationship status?: Panel score (0-1 are the most socially isolated patients): 1 Do you feel safe at home: Yes Do you feel safe in your relationship?: Yes Exam Const General: cooperative, comfortable and no acute distress Orientation: alert and oriented x3 HENMT Head: normocephalic and atraumatic Mouth: tongue normal and moist mucous membranes Teeth and gingiva: abnormal tooth or associated gingiva Resp Effort & Inspection: normal respiratory effort Auscultation: clear to auscultation bilaterally Cardio Rate: regular rate Rhythm: regular rhythm GI Inspection: normal to inspection Palpation: soft, no hepatosplenomegaly and nontender Results Last Vital Signs Temp 98.1 F 04/30/20 14:22 Pulse 71 04/30/20 14:22 Resp 18 04/30/20 14:22 BP 148/104 H 04/30/20 14:22 Pulse Ox 97 04/30/20 14:22
[2020-04-30 15:47] LABS: COVID-19 PCR Negative (Negative); Influenza A PCR Negative (Negative); Influenza B PCR Negative (Negative); RSV PCR Negative (Negative)
[2020-04-30] MEDS: Lactated Ringers 1,000 ML 80 ML IV (16:13)
--- NOTE | 2020-04-30 16:21 | STOM_PTH ---
PATIENT: Miguel Padilla Jr LOC: [facility] U#:[id number] AGE/SX: 74/M ROOM: RE04/30/[address]: Batool Santoro MD : 1945 BED: DIS: 04/30/2020 SPEC #: [id number] RECD: 04/30/20 17:06 STATUS: VILMA RE #: [id number] CONOR: 04/30/20 16:[address]: Santiago Conklin DEPT: Surgical Specimen RECD BY: Janneth Mendez ENTERED: 04/30/20 17:08 SP TYPE: STOMACH OTHR DR: Celestine Perkins Tissues: 1 - STOMACH BIOPSY 2 - STOMACH BIOPSY 3 - ESOPHAGUS BIOPSY 4 - ESOPHAGUS BIOPSY Procedures: GROSS AND MICRO LEVEL 4 Comments: [id number]
--- NOTE | 2020-04-30 16:40 | ENDO_ITS ---
Date of service: 04/30/20 Time of Service: 16:40 Endoscopy Report DATE OF PROCEDURE: 04/30/20 PRE-OP DIAGNOSIS: Dysphagia and foreign body POST-OP DIAGNOSIS: same (and chronic inflammation of esophagus and stomach) PROCEDURE: EGD with biopsies SURGEON: Batool Santoro ANESTHESIA: GETA (asa 3e/ Nakia Deutsch, ADELAIDA) ESTIMATED BLOOD LOSS: 5 PATHOLOGY: other (antrum bx, cardia bx, ge junction bx and distal esophagus biopsies) COMPLICATIONS: None DISPOSITION: PACU INDICATIONS: Mr. Padilla is a 74 year old with a history of GERD and dysphagia who comes in today after 24 hours of feeling like food is stuck in the esophagus. He is able to drink small amounts of water, but has pain when the water hits the distal esophagus. He has had EGD's in the past. He states they were normal. Risks, benefits and complications were reviewed with him and he wished to proceed. Risks, benefits and complications have been reviewed. Complications include but are not limited to bleeding, pain, perforation, sore throat, aspiration, and adverse reaction to the medications. Questions were entertained and answered to their satisfaction and they wished to proceed. No guarantees were given or implied. Rapid COVID test is being done Proceed with EGD under general FINDINGS: severe inflammation of the stomach, chronic inflammation of the distal esophagus with schatzki's ring. Possible Aguilar's PROCEDURE DESCRIPTION: After informed consent was obtained the patient was take to theoperating room and placed in a supine position. Monitors were applied and a time out was done. The patients name, date of , procedure type, allergies to medications and metal in their body was reviewed. The patient was then intubated and once the ET tube was secured a bite block was placed. Once under General anesthesia and intubated the gastroscope was advanced through the oropharynx which was grossly normal into the esophagus. The proxim al and mid-esophagus were normal. In the distal esophagus there was some potatoe stuck. The potatoe was gently pushed into the stomach. The scope was easily advanced into the stomach and through the pylorus into the 3rd portion of the duodenum. The duodenum was noted to be normal. The scope was retracted back into the stomach. There was severe inflammation noted of the stomach. Biopsies were done to rule out H. pylori. There were no ulcers. The scope was retro-flexed. The cardia was noted to be normal. The fundus was inflammed. There was no hiatal hernia noted. The scope was retracted back into the esophagus. there was chronic inflammation noted as well as a Schatzki's ring. Biopsies were done of the GE junction to rule out Aguilar's. The Z line was regular. The GE junction was at 40 cm. Biopsies were also done of the distal esophagus. The scope was removed and the patient was woken up and taken back to the ER in stable condition. Follow up: 2 weeks. Increase Pantoprazole to 40 mg BID and add Carafate QID for 14 days
--- NOTE | 2020-04-30 16:57 | W.PM.DSUDISC ---
Discharge Plan Disposition Patient Disposition: HOME Condition: Stable Discharge Details Clinical Impression: Food impaction of esophagus, Gastritis, Esophagitis, Dysphagia Primary Care Provider: Celestine Perkins ED Provider: Santiago Conklin [place] Meds and New Rx's Prescriptions: New sucralfate [Carafate] 1 gram tablet 1 g PO QID Qty: 56 RF: 0 pantoprazole 40 mg tablet,delayed release (DR/EC) 40 mg PO BID Qty: 60 RF: 0 Continued finasteride 5 MG tablet 5 mg PO DAILY Qty: 90 RF: 3 calcium carbonate-vitamin D3 1 EACH tablet 2 ea PO DAILY RF: 0 nitroglycerin [Nitrostat] 0.4 MG tablet, sublingual 0.4 mg Buccal PRN PRNRF: 0 pyridoxine (vitamin B6) [Vitamin B-6] 50 MG tablet 50 mg PO DAILY RF: 0 fluticasone propionate [Flonase Allergy Relief] 9.9 ML spray,suspension 9.9 ml NS BID PRNRF: 0 rosuvastatin [Crestor] 40 MG tablet 40 mg PO HS RF: 0 amlodipine 5 mg tablet 5 mg PO DAILY RF: 0 bupropion HCl 150 mg tablet extended release 24 hr 150 mg PO QAM RF: 0 tamsulosin [Flomax] 0.4 mg capsule 0.4 mg PO DAILY RF: 0 calcitonin (salmon) 200 unit/actuation spray,non-aerosol 1 spray INTRANA AL DAILY RF: 0 docusate sodium 100 mg capsule 100 mg PO DAILY RF: 0 lidocaine-prilocaine 2.5-2.5 % cream 1 applic TP PRN RF: 0 melatonin 10 mg tablet 10 mg PO HS PRNRF: 0 folic acid 1 MG tablet 1 mg PO QAM RF: 0 sennosides [senna] 8.6 mg Tablet 17.2 mg PO QHS PRNRF: 0 liothyronine [Cytomel] 5 mcg Tablet 5 mcg PO DAILY RF: 0 acetaminophen 500 mg Tablet 500 mg PO BID RF: 0 ipratropium bromide 0.03 % Pender,Non-Aerosol 2 spray INTRANASAL QID PRNRF: 0 Saccharomyces boulardii 250 mg Capsule 250 mg PO DAILY RF: 0 diclofenac sodium [Voltaren] 1 % Gel 1 % TOPICAL TID PRN (Reason: Pain) RF: 0 cholecalciferol (vitamin D3) [Vitamin D3] 2,000 unit Capsule 2,000 unit PO DAILY RF: 0 mesalamine [Delzicol] 400 mg Capsule (With Del Rel Tablets) 1,200 mg PO BID RF: 0 leflunomide 20 mg Tablet 20 mg PO DAILY RF: 0 levothyroxine 150 mcg Tablet 150 mcg PO DAILY@0600 Qty: 30 RF: 0 ipratropium-albuterol 0.5 mg-3 mg(2.5 mg base)/3 mL Solution For Nebulization 3 ml UPD Q6H Qty: 0 RF: 0 albuterol sulfate 2.5 mg /3 mL (0.083 %) Solution For Nebulization 2.5 mg UPD Q2H PRN PRNQty: 0 RF: 0 insulin aspart U-100 [Novolog Flexpen U-100 Insulin] 100 unit/mL (3 mL) Insulin Pen See Rx Instructions .ROUTE .COMPLEX Qty: 0 RF: 0 methylprednisolone 4 MG tablet 12 mg PO DAILY RF: 0 oxycodone 5 mg tablet 5 mg PO Q6H PRN PRNRF: 0 Levemir FlexTouch U-100 Insuln 100 unit/mL (3 mL) insulin pen 35 units subcut DAILY RF: 0 ProAir RespiClick 90 MCG aerosol powdr breath activated 2 puff Inhalation QID PRN PRNRF: 0 Spironolactone 50 MG tablet 50 mg PO DAILY RF: 0 Discontinued pantoprazole 40 mg tablet,delayed release (DR/EC) 40 mg PO DAILY RF: 0 Discharge Instructions Instructions: Diet for Stomach Ulcers and Gastritis (ED), Gastritis (DC), GERD (Gastroesophageal Reflux Disease) (DC), Full Liquid Diet (DC), GI (Gastrointestinal) Soft Diet (DC) Additional Instructions: Findings: severe inflammation of the stomach and esophagus Follow up: 2 weeks Diet: Please stay on a liquid diet for 24 hours and then advance to a full liquid diet for 24 hours and then to a soft diet Please call if you develop: fevers >101.5 Nausea or Vomiting Abdominal pain that is not transient DAY SURGERY UNIT POST ENDOSCOPY INSTRUCTIONS 1. Because there will be medication in your system for the next 24 hours, you may feel a little sleepy. Your coordination will be affected. Therefore: a. Do not drive or operate dangerous equipment for 24 hours. b. Do not drink alcohol beverages for 24 hours (not even beer). c. Plan to go home and rest for the day. 2. Generally there are no restrictions on your activity after a day or so has gone by, but you may feel a bit fatigued for a few days. 3 After you arrive home you may have a light meal and return to a normal diet as you can tolerate it without feeling sick to your stomach. 4. After surgery, you may feel pain or discomfort. This should be only transient, but if it persists please contact your doctor. 5. If there are any questions regarding the findings of your procedure, please feel free to contact your doctor. 6. If you are unable to contact your doctor with a problem, contact the hospital at [phone]. 7. Continue all your regular medications unless directed otherwise. I understand the above instructions and have no questions. Signature of Patient or Responsible Adult Escort Date/Time Name of Responsible Adult Escort Signature of Nurse Date/Time Referrals: Batool Weinstein MD [ [facility] STAFF PHYSICIAN] - (Please call [phone] to make an appointment with Dr. weinstein in 2 weeks) Discharge Data Discharge Physician: Batool Weinstein DS: Diagnosis Discharge Diagnosis (1) Dysphagia: Status: Acute
== END 2020-04-30 23:59 | disposition home or self-care (01) ==
LOC: SUR 06-10 13:46 → ER 06-10 13:46 → PDS 06-10 13:47 → SUR 06-10 13:49
PROVIDERS: Emergency Provider Emergency Medicine; PCP Family Medicine; Visit Provider Surgery
PROC: 0DC68ZZ Extirpation of Matter from Stomach, Via Natural or Artificial Opening Endoscopic (ICD-10-PCS; CPT 43247; principal; 2020-04-30 15:20)
DX: T18.128A Food in esophagus causing other injury, initial encounter (principal); X58.XXXA Exposure to other specified factors, initial encounter; K22.2 Esophageal obstruction; K21.00 Gastro-esophageal reflux disease with esophagitis, without bleeding; K22.10 Ulcer of esophagus without bleeding; K29.50 Unspecified chronic gastritis without bleeding; Z86.718 Personal history of other venous thrombosis and embolism; M06.9 Rheumatoid arthritis, unspecified
CPT/HCPCS: 43247; 43239; 36415; 36416; 82962; 87637; 88305; 99213; 99253; 99285; 99284; J1720; J2001; J2704; J3010

== ENCOUNTER 2020-05-20 01:49 | Outpatient (RCR) | payer MEDICARE, MEDICAID, SELFPAY ==
[2020-05-20] MEDS: Loratidine 10 MG TAB PO (12:25)
[2020-05-20] MEDS: Normal Saline Flush 10 ML SYR IVP (12:26)
[2020-05-20] MEDS: VEDOLIZUMAB 300 MG in Normal Saline 250 ML 500 MG IVPB (12:48)
== END 2020-06-08 23:59 | disposition home or self-care (01) ==
LOC: INF 01:49
PROVIDERS: PCP Family Medicine; Visit Provider Family Medicine
DX: K50.80 Crohn's disease of both small and large intestine without complications (principal)
CPT/HCPCS: 96365; J3380

== ENCOUNTER 2020-05-22 18:33 | Outpatient (REF) | payer MEDICARE, MEDICAID, SELFPAY ==
[2020-05-22 19:01] LABS: Hemoglobin A1C 10.4 % (<5.7)
[2020-05-22 19:08] LABS: TSH (W/Ref FT4) 1.25 uIU/mL (0.36-3.74)
[2020-05-26 10:30] LABS: Hepatitis C Ab w Rflx HCV PCR Negative (Negative)
== END 2020-05-22 18:53 ==
LOC: NCHCN 18:33
PROVIDERS: PCP Family Medicine; Visit Provider Family Medicine
DX: E11.9 Type 2 diabetes mellitus without complications (principal); E89.0 Postprocedural hypothyroidism; Z11.59 Encounter for screening for other viral diseases
CPT/HCPCS: 86803; 83036; 84443

== ENCOUNTER → 2020-05-23 12:00 | Outpatient (BNVA) | payer MEDICARE, MEDICAID, SELFPAY | PROVIDERS: PCP Family Medicine; Referring Provider Family Medicine; Visit Provider Surgery | DX: Z48.815 Encounter for surgical aftercare following surgery on the digestive system (principal); K22.10 Ulcer of esophagus without bleeding; R13.10 Dysphagia, unspecified | CPT/HCPCS: 99212; 99442 ==

== ENCOUNTER 2020-07-15 12:00 | Outpatient (RCR) | payer MEDICARE, MEDICAID, SELFPAY ==
[2020-07-15] MEDS: Loratidine 10 MG TAB PO (12:35)
[2020-07-15] MEDS: Normal Saline Flush 10 ML SYR IVP (12:36)
[2020-07-15] MEDS: VEDOLIZUMAB 300 MG in Normal Saline 250 ML 500 MG IVPB (12:36)
[2020-07-15 12:46] LABS: Abs Immature Grans 0.01 10^3/uL (0.0-0.06); Absolute Basophil Count 0.01 10^3/uL (0.0-0.2); Absolute Eosinophil Count 0.39 10^3/uL (0.0-0.7); Absolute Lymphocyte Count 2.55 10^3/uL (1.2-3.4); Absolute Monocyte Count 0.02 10^3/uL (0.1-0.8); Absolute Neutrophil Count 1.56 10^3/uL (1.2-6.7); Basophils % 0.2; Eosinophils % 8.6; HCT 27.3 % (40.0-50.0); HGB 8.7 g/dL (13.5-17.5); Immature Grans % 0.2; Lymphocytes % 56.2; MCH 31.1 pg (27.0-33.0); MCHC 31.9 % (32.0-36.0); MCV 97.5 fL (80-95); Monocytes % 0.4; Neutrophils % 34.4; Nucleated RBC 0 %; Platelet Count 123 10^3/uL (130-400); RDW 15.9 % (11.8-14.1); RDW-SD 56.4 fL; WBC 4.54 10^3/uL (4.4-10.8)
[2020-07-15 13:06] LABS: Anisocytosis 1+; Diff Comment Agrees w/ Instrument; Poikilocytes 1+
[2020-07-15 13:15] LABS: ALT 30 U/L (16-63); AST 23 U/L (15-37); Albumin 3.1 g/dL (3.4-5.0); Alkaline Phosphatase 72 U/L (46-116); Anion Gap 10.5 mmol/L (3-11); BUN 17 mg/dL (7-18); Bilirubin, Total 0.6 mg/dL (0.2-1.0); C-Reactive Protein 2.11 mg/dL (0.0-0.3); CO2 24.5 mmol/L (21.0-32.0); CREATININE 0.9 mg/dL (0.70-1.30); Calcium 9.1 mg/dL (8.5-10.1); Chloride 104 mmol/L (98-107); Glucose 160 mg/dL (74-106); Potassium 3.2 mmol/L (3.5-5.1); Sodium 139 mmol/L (136-145); Total Protein 7.5 g/dL (6.4-8.2)
== END 2020-08-06 23:59 | disposition home or self-care (01) ==
LOC: INF 12:00
PROVIDERS: Internal Medicine Gastroenterology; PCP Family Medicine; Visit Provider Family Medicine
DX: K50.80 Crohn's disease of both small and large intestine without complications (principal)
CPT/HCPCS: 36415; 80053; 96365; 85025; 86140; J3380

== ENCOUNTER 2020-07-15 16:06 | Outpatient (REF) | payer MEDICARE, MEDICAID, SELFPAY ==
[2020-07-17 12:06] LABS: HSV 1 DNA Result Negative (Negative); HSV 2 DNA Result Negative (Negative)
== END 2020-07-15 16:07 | disposition home or self-care (01) ==
LOC: LBN 16:06
PROVIDERS: PCP Family Medicine; Visit Provider Nurse Practitioner Family
DX: K12.1 Other forms of stomatitis (principal)
CPT/HCPCS: 87529

== ENCOUNTER 2020-09-09 01:48 | Outpatient (RCR) | payer MEDICARE, MEDICAID, SELFPAY ==
[2020-09-09] MEDS: Normal Saline Flush 10 ML SYR IVP (12:15)
[2020-09-09] MEDS: Acetaminophen 325 MG TAB 650 MG PO (12:17)
[2020-09-09] MEDS: Loratidine 10 MG TAB PO (12:18)
[2020-09-09] MEDS: VEDOLIZUMAB 300 MG in Normal Saline 250 ML 500 MG IVPB (12:41)
== END 2020-10-06 23:59 | disposition home or self-care (01) ==
LOC: INF 01:48
PROVIDERS: PCP Family Medicine; Visit Provider Family Medicine
DX: K50.80 Crohn's disease of both small and large intestine without complications (principal); E11.9 Type 2 diabetes mellitus without complications; Z79.4 Long term (current) use of insulin
CPT/HCPCS: 36415; 80053; 96365; J3380

== ENCOUNTER 2020-09-09 13:34 | Outpatient (CLI) | payer MEDICARE, MEDICAID, SELFPAY ==
[2020-09-09 14:58] LABS: ALT 31 U/L (16-63); AST 29 U/L (15-37); Albumin 3.3 g/dL (3.4-5.0); Alkaline Phosphatase 88 U/L (46-116); Anion Gap 8.8 mmol/L (3-11); BUN 16 mg/dL (7-18); Bilirubin, Total 0.3 mg/dL (0.2-1.0); CO2 27.2 mmol/L (21.0-32.0); CREATININE 1.3 mg/dL (0.70-1.30); Calcium 8.9 mg/dL (8.5-10.1); Chloride 101 mmol/L (98-107); Estimated GFR 53.67 (mL/min/1.73m2); Glucose 332 mg/dL (74-106); Potassium 4.7 mmol/L (3.5-5.1); Sodium 137 mmol/L (136-145); Total Protein 7.2 g/dL (6.4-8.2)
== END 2020-09-09 13:35 | disposition home or self-care (01) ==
LOC: LBO 13:35
PROVIDERS: PCP Family Medicine; Visit Provider Physician Assistant
DX: K13.79 Other lesions of oral mucosa (principal); R53.83 Other fatigue; B37.0 Candidal stomatitis
CPT/HCPCS: 36415; 80053

== ENCOUNTER 2020-10-15 20:33 | Outpatient (REF) | payer MEDICARE, MEDICAID, SELFPAY ==
[2020-10-15 20:24] LABS: HCT 33.6 % (40.0-50.0); HGB 10.3 g/dL (13.5-17.5); MCH 30.1 pg (27.0-33.0); MCHC 30.7 % (32.0-36.0); MCV 98.2 fL (80-95); MPV 10.9 fL (8.0-11.0); Platelet Count 318 10^3/uL (130-400); RBC 3.42 10^6/uL (4.36-5.78); RDW 18.1 % (11.8-14.1); RDW-SD 65.5 fL; WBC 8.16 10^3/uL (4.4-10.8)
[2020-10-15 20:41] LABS: Iron 50 ug/dL (65-175); Total Iron Binding Capacity 175 ug/dL (250-450); Transferrin Sat 29 % (20-55)
[2020-10-15 20:51] LABS: Vitamin B12 291 pg/mL (193-986)
== END 2020-10-15 20:34 | disposition home or self-care (01) ==
LOC: NCHCN 20:33
PROVIDERS: PCP Family Medicine; Visit Provider Family Medicine
DX: D64.9 Anemia, unspecified (principal); Z86.39 Personal history of other endocrine, nutritional and metabolic disease
CPT/HCPCS: 85027; 82607; 83540; 83550

== ENCOUNTER 2020-11-17 10:55 | Emergency (ER) | payer MEDICARE, MEDICAID, SELFPAY ==
[2020-11-17 10:58] VITALS: BP 133/83; PULSE 79; RESP 18; TEMP 37.1; O2SAT 98
--- NOTE | 2020-11-17 11:15 | DI.RAD_ITS ---
Exam(s) XR RIBS LT W PA LAT CHEST EXAM: XR RIBS LT W PA LAT CHEST CLINICAL HISTORY: fall/pain. TECHNIQUE: 2D digital imaging was performed. COMPARISON: CR,XR XR PORTABLE CHEST AP from 10/25/2019 FINDINGS: Cardiomegaly again noted. Bilateral pulmonary interstitial disease is unchanged from October 2019. With respect of the left rib cage, there is an acute appearing fracture of the left 11th rib. IMPRESSION: Fracture of the left 11th rib. No pneumothorax. Chronic interstitial pulmonary disease. Cardiomegaly. No pneumothorax. Incidentally noted is vertebroplasty cement in L1 body. DATA REPOSITORY: RADIATION DOSE DELIVERED:
[2020-11-17] MEDS: Lidocaine 5% Patch 1 PATCH TP (12:03)
[2020-11-17] MEDS: oxyCODONE 5 mg/Acetaminophen 325 mg TAB 1 TAB PO (12:05)
--- NOTE | 2020-11-17 12:40 | ED.GENADUL_ITS ---
Discharge Plan Disposition Patient Disposition: HOME Condition: Stable Discharge Details Clinical Impression: Fracture of rib Primary Care Provider: Celestine Perkins ED Provider: Tanmay Fisher Home Meds and New Rx's Prescriptions: New lidocaine [Lidoderm] 5 % adhesive patch,medicated 1 patch topical DAILY Qty: 15 RF: 0 oxycodone-acetaminophen [Percocet] 5-325 mg tablet 1 tab PO TID PRNQty: 8 RF: 0 Continued finasteride 5 MG tablet 5 mg PO DAILY Qty: 90 RF: 3 calcium carbonate-vitamin D3 1 EACH tablet 2 ea PO DAILY RF: 0 nitroglycerin [Nitrostat] 0.4 MG tablet, sublingual 0.4 mg Buccal PRN PRNRF: 0 pyridoxine (vitamin B6) [Vitamin B-6] 50 MG tablet 50 mg PO DAILY RF: 0 fluticasone propionate [Flonase Allergy Relief] 9.9 ML spray,suspension 9.9 ml NS BID PRNRF: 0 rosuvastatin [Crestor] 40 MG tablet 40 mg PO HS RF: 0 amlodipine 5 mg tablet 5 mg PO DAILY RF: 0 bupropion HCl 150 mg tablet extended release 24 hr 150 mg PO QAM RF: 0 tamsulosin [Flomax] 0.4 mg capsule 0.4 mg PO DAILY RF: 0 calcitonin (salmon) 200 unit/actuation spray,non-aerosol 1 spray INTRANA AL DAILY RF: 0 docusate sodium 100 mg capsule 100 mg PO DAILY RF: 0 pantoprazole [Protonix] 40 mg tablet,delayed release (DR/EC) 40 mg PO DAILY Qty: 30 RF: 12 folic acid 1 MG tablet 1 mg PO QAM RF: 0 liothyronine [Cytomel] 5 mcg Tablet 5 mcg PO DAILY RF: 0 acetaminophen 500 mg Tablet 500 mg PO BID RF: 0 ipratropium bromide 0.03 % [place],Non-Aerosol 2 spray INTRANASAL QID PRNRF: 0 Saccharomyces boulardii 250 mg Capsule 250 mg PO DAILY RF: 0 diclofenac sodium [Voltaren] 1 % Gel 1 % TOPICAL TID PRN (Reason: Pain) RF: 0 cholecalciferol (vitamin D3) [Vitamin D3] 2,000 unit Capsule 2,000 unit PO DAILY RF: 0 leflunomide 20 mg Tablet 20 mg PO DAILY RF: 0 levothyroxine 150 mcg Tablet 150 mcg PO DAILY@0600 Qty: 30 RF: 0 ipratropium-albuterol 0.5 mg-3 mg(2.5 mg base)/3 mL Solution For Nebulization 3 ml UPD Q6H Qty: 0 RF: 0 albuterol sulfate 2.5 mg /3 mL (0.083 %) Solution For Nebulization 2.5 mg UPD Q2H PRN PRNQty: 0 RF: 0 insulin aspart U-100 [Novolog Flexpen U-100 Insulin] 100 unit/mL (3 mL) Insulin Pen See Rx Instructions .ROUTE .COMPLEX Qty: 0 RF: 0 methylprednisolone 4 MG tablet 4 mg PO DAILY RF: 0 Levemir FlexTouch U-100 Insuln 100 unit/mL (3 mL) insulin pen See Rx Instructions .ROUTE .COMPLEX RF: 0 sertraline 100 mg tablet 200 mg PO DAILY RF: 0 albuterol sulfate [ProAir HFA] 90 mcg/actuation Hfa Aerosol Inhaler 2 puff INHALATION 6XD PRNRF: 0 ketoconazole 2 % cream 1 applic TOPICAL BID PRNRF: 0 irbesartan 300 mg Tablet 300 mg PO DAILY RF: 0 Entyvio 300 mg Recon Soln 300 mg IV DIRECTED RF: 0 spironolactone 50 mg Tablet 50 mg PO DAILY RF: 0 Xarelto 20 mg tablet 20 mg PO DAILY RF: 0 methotrexate (PF) 15 mg/0.6 mL Syringe 1 mg SUBCUT QWEEK RF: 0 Discharge Instructions Instructions: Rib Fracture (ED) Additional Instructions: X-ray reveals a fractured rib. Incentive spirometer as directed. Prescriptions given to you for Lidoderm patch and Percocet, Percocet may cause drowsiness and/or constipation. I recommend taking [id number] stool softener while taking Percocet. Cool and/or warm compresses every 2 hours for 20 minutes. Please watch for new or worsening symptoms and return to the ER for any concerns. I had care management come to the ER to evaluate you and set you up with home health and PT. Please follow their instructions. Lastly, I recommend reaching out your primary care provider to discuss your ER visit, need for outpatient reevaluation and potential for additional long-term pain medication while your rib is healing. Medical Decision Making 75-year-old gentleman, multiple comorbidities, not anticoagulated, presents to the ER today via EMS complaining of left lower rib pain status post mechanical fall 1 week ago. Patient appears well, nontoxic, lungs are clear to auscultation, he is afebrile, pulse in the 70s, hemodynamically stable, O2 sat 98% on room air. Patient does not have any back or abdominal pain, discomfort appears to be left lateral inferior chest wall-rib. No crepitus. Extremely low suspicion for pneumothorax. Examination most consistent with rib fracture and/or contusion. Will obtain left rib series and chest film, give a single dose of p.o. Percocet and a Lidoderm patch. X-ray reviewed by me and confirmed by radiology as an 11th rib fracture. Discussed x-ray findings with patient and his . Discussed treatment plan and disposition. Patient would prefer to attempt to be discharged home. I will contact our care management team and have them talk with the patient and his regarding home health and PT. I will provide the patient with a an incentive spirometer with teaching, prescription for Lidoderm patches and Percocet. He does understand that he will need to get a longer term prescription through his primary care provider if he does require it. He will be given a 4 mg IM injection of morphine before discharge to help with his transfer home until he can get more comfortable. Patient and are comfortable this plan and have no additional questions or concerns. Standard discharge and return precautions given This documentation was generated using [employer] dictation system, please disregard any oddities of phrase or misspellings. Medical Records Medical records reviewed: Yes I reviewed the patient's medical records. Imaging Data Radiologic Study: Attestation: I personally reviewed and interpreted this imaging study as follows: Imaging: X-Ray Radiologist's impression: Exam(s) XR RIBS LT W PA LAT CHEST EXAM: XR RIBS LT W PA LAT CHEST CLINICAL HISTORY: fall/pain. TECHNIQUE: 2D digital imaging was performed. COMPARISON: CR,XR XR PORTABLE CHEST AP from 10/25/2019 FINDINGS: Cardiomegaly again noted. Bilateral pulmonary interstitial disease is unchanged from October 2019. With respect of the left rib cage, there is an acute appearing fracture of the left 11th rib. IMPRESSION: Fracture of the left 11th rib. No pneumothorax. Chronic interstitial pulmonary disease. Cardiomegaly. No pneumothorax. Incidentally noted is vertebroplasty cement in L1 body. HPI General Mode of arrival: EMS . Date/Time Provider Initiated Documentation: 11/17/20 11:07 . Limitations to Documentation: no limitations . Information obtained by: patient, family and EMS . HPI Narrative: This is a 75-year-old male, past medical history that includes adrenal insufficiency, BPH, CAD, Crohn's disease, diabetes, DVT, GERD, Graves' disease, hypertension, stroke, presenting to the ER today via EMS status post a mechanical slip and fall in the shower 1 week ago, striking the left side of his trunk against the edge of the shower. Patient states that he had pain at the time of the fall, EMS on scene but declined transport. Pain is worsening, moderate at rest, worse with movement or coughing. Has not been taking any medication for his symptoms. Denies striking his head, LOC, headache, visual changes, neck pain, chest pain, back pain, abdominal pain, nausea, vomiting, bowel or bladder incontinence- retention, radiation of pain down his legs. Patient states that he primarily gets around in a wheelchair but is able to stand and take a few steps on his own. Related Data Home Medications Medication Instructions Recorded Confirmed folic acid 1 mg PO QAM 10/13/12 11/17/20 finasteride 5 mg PO DAILY #90 tab-cap 03/29/14 04/30/20 calcium carbonate-vitamin D3 2 ea PO DAILY 07/03/15 04/30/20 fluticasone propionate [Flonase 9.9 ml NS BID PRN 07/03/15 11/17/20 Allergy Relief] nitroglycerin [Nitrostat] 0.4 mg BUCCAL PRN PRN tab-cap 07/03/15 11/17/20 pyridoxine (vitamin B6) [Vitamin 50 mg PO DAILY 07/03/15 11/17/20 B-6] rosuvastatin [Crestor] 40 mg PO HS 07/03/15 11/17/20 amlodipine 5 mg tablet 5 mg PO DAILY 08/23/18 04/30/20 bupropion HCl 150 mg 24 hr tablet, 150 mg PO QAM 08/23/18 11/17/20 extended release calcitonin (salmon) 200 1 spray INTRANA AL DAILY 08/23/18 04/30/20 unit/actuation nasal spray docusate sodium 100 mg capsule 100 mg PO DAILY 08/23/18 04/30/20 tamsulosin 0.4 mg capsule 0.4 mg PO DAILY 08/23/18 11/17/20 Saccharomyces boulardii 250 mg PO DAILY 03/05/19 11/17/20 acetaminophen 500 mg PO BID 03/05/19 04/30/20 cholecalciferol (vitamin D3) 2,000 unit PO DAILY 03/05/19 04/11/20 [Vitamin D3] diclofenac sodium [Voltaren] 1 % TOPICAL TID PRN 03/05/19 04/30/20 ipratropium bromide 2 spray INTRANASAL QID PRN 03/05/19 04/30/20 leflunomide 20 mg PO DAILY 03/05/19 04/30/20 liothyronine [Cytomel] 5 mcg PO DAILY 03/05/19 11/17/20 levothyroxine 150 mcg PO DAILY@0600 #30 tab 03/20/19 04/30/20 albuterol sulfate 2.5 mg UPD Q2H PRN PRN #0 ml 03/28/19 11/17/20 insulin aspart U-100 [Novolog See Rx Instructions .ROUTE 03/28/19 04/30/20 Flexpen U-100 Insulin] .COMPLEX #0 ml ipratropium-albuterol 3 ml UPD Q6H #0 ml 03/28/19 11/17/20 Levemir FlexTouch U-100 Insuln See Rx Instructions .ROUTE .COMPLEX 04/11/2004/28 methylprednisolone 4 mg PO DAILY 04/11/20 11/17/20 pantoprazole 40 mg tablet,delayed 40 mg PO DAILY #30 tab 05/16/20 11/17/20 release Entyvio 300 mg IV DIRECTED 11/17/20 11/17/20 Xarelto 20 mg PO DAILY 11/17/20 11/17/20 albuterol sulfate [ProAir HFA] 2 puff INHALATION 6XD PRN 11/17/20 11/17/20 irbesartan 300 mg PO DAILY 11/17/20 11/17/20 ketoconazole 1 applic TOPICAL BID PRN 11/17/20 11/17/20 lidocaine [Lidoderm] 1 patch TOPICAL DAILY #15 ea 11/17/20 methotrexate (PF) 1 mg SUBCUT QWEEK 11/17/20 11/17/20 oxycodone-acetaminophen [Percocet] 1 tab PO TID PRN #8 tab 11/17/20 sertraline 200 mg PO DAILY 11/17/20 11/17/20 spironolactone 50 mg PO DAILY 11/17/20 11/17/20 Previous Rx's Medication Instructions Recorded levothyroxine 150 mcg PO DAILY@0600 #30 tab 03/20/19 albuterol sulfate 2.5 mg UPD Q2H PRN PRN #0 ml 03/28/19 insulin aspart U-100 [Novolog See Rx Instructions .ROUTE 03/28/19 Flexpen U-100 Insulin] .COMPLEX #0 ml ipratropium-albuterol 3 ml UPD Q6H #0 ml 03/28/19 pantoprazole 40 mg tablet,delayed 40 mg PO DAILY #30 tab 05/16/20 release lidocaine [Lidoderm] 1 patch TOPICAL DAILY #15 ea 11/17/20 oxycodone-acetaminophen [Percocet] 1 tab PO TID PRN #8 tab 11/17/20 Allergies Allergy/AdvReac Type Severity Reaction Status Date / Time infliximab Allergy Unknown Verified 11/17/20 11:03 methotrexate AdvReac Mild Unverified 11/17/20 11:03 atorvastatin calcium AdvReac Bones ache. Unverified 11/17/20 11:03 [From Lipitor] RAMICAIN AdvReac Uncoded 11/17/20 11:03 General Stated Complaint: Nk/Back Pain HEMA: 3 Review of Systems Constitutional Constitutional: Denies fever(s) and Denies headache(s) Eyes Eyes: Denies change in vision ENT Ears, Nose, Mouth, and Throat: Denies headache(s) and Denies neck pain Cardiovascular Cardiovascular: Denies chest pain and Denies dyspnea Respiratory Respiratory: Denies cough and Denies dyspnea Gastrointestinal Gastrointestinal: Denies abdominal pain, Denies nausea and Denies vomiting Genitourinary Genitourinary: Denies hematuria Musculoskeletal Musculoskeletal: Denies back pain and Denies neck pain Integumentary/Breasts Skin/Breast: Denies erythema Neurologic Neurologic: Denies headache(s) FORMERLY [facility], 1928–1983 Medical History Adrenal insufficiency Benign prostatic hyperplasia (07/03/15) Coronary artery disease Crohns disease Diabetes mellitus, type II, insulin dependent DVT (deep venous thrombosis) Erectile dysfunction of organic origin (07/03/15) GERD (gastroesophageal reflux disease) GI bleed Graves disease Hyperlipidemia Hypertension Hypothyroidism Obstructive sleep apnea Peripheral neuropathy Rheumatoid arthritis Sensorineural hearing loss, bilateral (01/28/15) Stroke 2018 Traumatic compression fracture of T12 thoracic vertebra Vitamin B12 deficiency Vitamin B6 deficiency Vitamin D deficiency Surgical History Graves' eye disease s/p surgery H/O lumbosacral spine surgery Prosthesis, Penile implant Family History Father Asthma Sister Asthma Social History Smoking/Tobacco Use Status: Former Tobacco Use Smoking risk assessment performed?: Yes Alcohol Intake: never Drug use: Occasionally Substance use type: does not use and marijuana Details: gummy bears 3 times a week for back pain Household members: spouse Number of Children: 5 current occupation: Ret[employer] What is your relationship status?: Panel score (0-1 are the most socially isolated patients): 1 Do you feel safe at home: Yes Do you feel safe in your relationship?: Yes Exam Const General: cooperative, healthy appearing and no acute distress Orientation: alert, awake and oriented x3 HENMT Head: normal to inspection, normocephalic and atraumatic Face and sinus: normal facial exam Mouth: moist mucous membranes Eyes General: appearance normal, both eyes and all related structures Conjunctivae: conjunctivae normal Neck Neck: normal visual inspection, full ROM, trachea midline, supple and nontender Chest Chest: normal inspection of the chest, no crepitus and tenderness (Left lateral inferior aspect, diffuse) Resp Effort & Inspection: normal respiratory effort and able to speak in complete sentences Auscultation: clear to auscultation bilaterally Cardio Rate: regular rate Rhythm: regular rhythm GI Inspection: normal to inspection Palpation: soft and nontender Back/Spine/Pelvis Back: no CVA tenderness and No back tenderness Skin General skin exam: no rashes or lesions noted Neuro General: patient alert, patient awake, patient oriented x3, moves all extremities and no focal motor deficits Cognition: normal cognition Speech: speech normal Motor: muscle tone normal throughout and strength 5/5 throughout Sensory Exam: no sensory deficits noted Extrem General: normal to inspection, full ROM and capillary refill normal Psych Appearance: grossly normal Mental Status: mental status grossly normal Course Vital Signs Vital signs: Vital Signs Temperature 37.1 C 11/17/20 10:58 Pulse 79 11/17/20 10:58 Respiratory Rate 18 11/17/20 10:58 Blood Pressure 133/83 11/17/20 10:58 Pulse Oximetry 98 11/17/20 10:58 Temperature 37.1 C 11/17/20 10:58 Temperature Source Skin 11/17/20 10:58 Pulse 79 11/17/20 10:58 Respiratory Rate 18 11/17/20 10:58 Respiratory Effort Non-Labored 11/17/20 12:27 Blood Pressure 133/83 11/17/20 10:58 Blood Pressure Position Sitting 11/17/20 10:58 Pulse Oximetry 98 11/17/20 10:58 Oxygen Delivery Method Room Air 11/17/20 10:58 Oxygen Flow Rate 0 11/17/20 10:58 Pain Level 9 11/17/20 12:05
[2020-11-17 13:23] VITALS: BP 146/74; PULSE 86; RESP 18; TEMP 37.4; O2SAT 93
--- NOTE | 2020-11-17 14:13 | CMPROGNOTE_ITS ---
- If Service Date Differs Date of service: 11/17/20 Time of Service: 14:13 Care Management Progress Note Miguel is seen in the ED for a rib fracture. At the request of ED provider, CM coordinates a referral to [facility] for new in-home PT services.
== END 2020-11-17 16:53 | disposition home or self-care (01) ==
LOC: ER 13:43
PROVIDERS: Emergency Provider Physician Assistant; PCP Family Medicine
DX: S22.32XA Fracture of one rib, left side, initial encounter for closed fracture (principal); W18.39XA Other fall on same level, initial encounter
CPT/HCPCS: 99283; 71046; 71100

== ENCOUNTER 2020-11-28 13:30 | Outpatient (RCR) | payer MEDICARE, MEDICAID, SELFPAY ==
[2020-11-28 13:44] LABS: HCT 26.9 % (40.0-50.0); HGB 8.3 g/dL (13.5-17.5); MCH 29.6 pg (27.0-33.0); MCHC 30.9 % (32.0-36.0); MCV 96.1 fL (80-95); Platelet Count 317 10^3/uL (130-400); RDW 18.7 % (11.8-14.1); RDW-SD 65.8 fL; WBC 9.78 10^3/uL (4.4-10.8)
[2020-11-28] MEDS: Normal Saline Flush 10 ML SYR IVP (13:57)
[2020-11-28] MEDS: VEDOLIZUMAB 300 MG in Normal Saline 250 ML 500 MG IVPB (13:57)
[2020-11-28 14:01] LABS: ALT 28 U/L (16-63); AST 15 U/L (15-37); Albumin 2.8 g/dL (3.4-5.0); Alkaline Phosphatase 92 U/L (46-116); Bilirubin, Direct 0.1 mg/dL (0.0-0.2); Bilirubin, Total 0.3 mg/dL (0.2-1.0); C-Reactive Protein 7.28 mg/dL (0.0-0.3); Total Protein 7.7 g/dL (6.4-8.2)
== END 2020-12-06 23:59 | disposition home or self-care (01) ==
LOC: INF 13:30
PROVIDERS: PCP Family Medicine; Visit Provider Family Medicine
DX: K50.80 Crohn's disease of both small and large intestine without complications (principal)
CPT/HCPCS: 80076; 85027; 96365; 86140; J3380

== ENCOUNTER 2020-12-07 09:58 | Inpatient (IN) | payer MEDICARE, MEDICAID, SELFPAY ==
[2020-12-07] VITALS (14 sets, daily range): BP systolic 111–153; BP diastolic 55–90; PULSE 67–105; RESP 14–25; TEMP 36.2–36.5; O2SAT 94–97
--- NOTE | 2020-12-07 10:20 | ED.GENADUL_ITS ---
Discharge Plan Disposition Patient Disposition: [facility] Condition: Poor Discharge Details Chief Complaint: Vascular Clinical Impression: UTI (urinary tract infection), Acute on chronic clinical systolic heart failure Admit Date/Time: 12/07/20 15:12 Admit Provider: Tanmay Frazier Attending Provider: Tanmay Frazier Primary Care Provider: Celestine Perkins ED Provider: Iona Meeks Discharge Data Discharge Date/Time-TO BE ENTERED AT DEPARTURE: 12/07/20 16:25 Medical Decision Making Patient is a pleasant 75-year-old male, brought in by his , chief complaint of bilateral arm swelling and left leg swelling. He reports he was recently diagnosed with an upper extremity DVT. This was while receiving Xarelto. They deny any missed doses. States that he had left-sided knee pain for the past few weeks but that the left extremity swelling has begun over the past few days and is progressively been increasing. Patient notes that he has chronic shortness of breath, unclear if this is new from his baseline. Has not noted any swelling in his abdomen. Denies any chest pain. Patient is being [place] [facility] as well as his primary care for this. Past medical history significant for CAD with 5 NM, 7 stents, on anticoagulation, DVT in the left leg and arm, insulin-dependent diabetes, hypothyroidism, hypertension, history of GI bleed, iron deficiency, FRANCIE, Crohn's disease, herniated disc. Patient is on buprenorphine for his chronic pain. Patient did have a recent fall suffering several rib fractures. He reports he does fall frequently. Also reports that he has had hypertension recently which is being followed by primary care. Patient is denying any dizziness currently. Reviewed recent notes from [facility] rheumatology appointment as well as Dr. Johnson's notes. Of note, patient was recently anemic at [facility] with a hemoglobin of 7.6. CRP is being followed at elevated at 60. Superficial thrombosis is noted on ultrasound. On exam, patient appears chronically ill. He is tachypneic but he feels this may be his baseline. Crackles at bases bilaterally. No swelling in his abdomen. He has swelling of the right hand extending into the wrist. 2+ distal pulses. No pain with palpation. No erythema or evidence of infection. Exam of LLE significant for pitting edema from foot to thigh. Intact capillary refill. No focal area of tenderness. No palpable cord. Concerned at this time for possible clots despite anticoagulation. Also considered CHF exacerbation given SOB. After review of notes, also considered infection as they have noted increases CRP and had been questioning if there could be infectious source. Considered PE. Less likely ACS, no CP but patient has signficnat cardiac hx. Exam is not consistent with cellulitis. Labs reviewed. Patient is a white count 12.1. Hemoglobin 9.6. ESR elevated at 64. D-dimer is over 7500. Will obtain CT for PE protocol. Lactate 1.5. BUN within normal limits, creatinine within normal limits. Troponin within normal limits. CRP 14.8. BNP 1113. TSH is elevated at 43. Urine is concerning for infection with moderate bacteria. Will start on abx and give IV dose Lasix. No US tech on today. Will have to hold off on evaluation of the extremities at htis time. Paitents breathing appears improved after IV Lasix. CT reviewed by radiology: FINDINGS: Pulmonary arteries: Normal. No pulmonary emboli. Aorta: There is atherosclerotic calcification of the aorta. There is no aneurysm or dissection. Lungs: The there is bilateral pulmonary fibrosis. This is similar to previous study. No acute pneumonia is seen. Pleural spaces: Unremarkable. No pneumothorax. No pleural effusion. Heart: The heart is enlarged. There is calcification of the coronary arteries. Lymph nodes: Unremarkable. No enlarged lymph nodes. Bones/joints: Degenerative changes are present in the spine with sclerosis joint space narrowing and osteophytes. Soft tissues: Unremarkable. IMPRESSION: 1. No evidence of aortic aneurysm/dissection or pulmonary embolus. 2. Coronary artery disease. 3. Cardiomegaly. 4. Pulmonary emphysema and fibrosis. Discussed with patient. I remain concerned for DVT in extremities. Feel that patient would benefit from admission for continued monitoring and evaluation for possible DVTs tomorrow. Will continue with abx and diuresis as well. Patient and his in agreement with admission. Consulted with Dr. Frazier who agrees to admission. Holding orders placed. HPI General Mode of arrival: wheelchair . Date/Time Provider Initiated Documentation: 12/07/20 10:19 . Limitations to Documentation: no limitations . Information obtained by: patient, family (), RN notes reviewed and old records reviewed . History of Present Illness 75 year old M presents to the emergency department with the chief complaint of RUE swelling and LLE swelling, described as severe, with intensity rated at 8 (most of his pain is in his back which is chronic and unchanged). Quality is described as other (pressure in affected extremities), and is localized to the upper extremity and lower extremity. Patient reports no radiation. Patient started experiencing this day(s) and it has been constant. No relieving factors improve symptom(s), No exacerbating factors reported . Patient notes shortness of breath (unsure if this is worse than his chronic SOB) and weakness (chronic weakness); denies chest pain, fever/chills, headaches, nausea/vomiting and rash. Patient did receive the following treatments prior to arrival, other (has been elevated affected extremities) Related Data Home Medications Medication Instructions Recorded Confirmed folic acid 1 mg PO QAM 10/13/12 12/07/20 finasteride 5 mg PO DAILY #90 tab-cap 03/29/14 12/07/20 calcium carbonate-vitamin D3 2 ea PO DAILY 07/03/15 04/30/20 fluticasone propionate [Flonase 9.9 ml NS BID PRN 07/03/15 12/07/20 Allergy Relief] nitroglycerin [Nitrostat] 0.4 mg BUCCAL PRN PRN tab-cap 07/03/15 12/07/20 pyridoxine (vitamin B6) [Vitamin 50 mg PO DAILY 07/03/15 12/07/20 B-6] rosuvastatin [Crestor] 40 mg PO HS 07/03/15 12/07/20 amlodipine 5 mg tablet 5 mg PO DAILY 08/23/18 04/30/20 bupropion HCl 150 mg 24 hr tablet, 150 mg PO QAM 08/23/18 12/07/20 extended release calcitonin (salmon) 200 1 spray INTRANA AL DAILY 08/23/18 04/30/20 unit/actuation nasal spray docusate sodium 100 mg capsule 100 mg PO DAILY 08/23/18 04/30/20 tamsulosin 0.4 mg capsule 0.4 mg PO DAILY 08/23/18 12/07/20 Saccharomyces boulardii 250 mg PO DAILY 03/05/19 11/17/20 acetaminophen 500 mg PO BID 03/05/19 04/30/20 cholecalciferol (vitamin D3) 2,000 unit PO DAILY 03/05/19 12/07/20 [Vitamin D3] diclofenac sodium [Voltaren] 1 % TOPICAL TID PRN 03/05/19 04/30/20 ipratropium bromide 2 spray INTRANASAL QID PRN 03/05/19 04/30/20 leflunomide 20 mg PO DAILY 03/05/19 04/30/20 liothyronine [Cytomel] 5 mcg PO DAILY 03/05/19 12/07/20 albuterol sulfate 2.5 mg UPD Q2H PRN PRN #0 ml 03/28/19 12/07/20 insulin aspart U-100 [Novolog See Rx Instructions .ROUTE 03/28/19 04/30/20 Flexpen U-100 Insulin] .COMPLEX #0 ml ipratropium-albuterol 3 ml UPD Q6H #0 ml 03/28/19 12/07/20 Levemir FlexTouch U-100 Insuln See Rx Instructions .ROUTE .COMPLEX 04/11/20 12/07/20 methylprednisolone 4 mg PO DAILY 04/11/20 12/07/20 pantoprazole 40 mg tablet,delayed 40 mg PO DAILY #30 tab 05/16/20 12/07/20 release Entyvio 300 mg IV DIRECTED 11/17/20 12/07/20 Xarelto 20 mg PO DAILY 11/17/20 12/07/20 albuterol sulfate [ProAir HFA] 2 puff INHALATION 6XD PRN 11/17/20 12/07/20 irbesartan 300 mg PO DAILY 11/17/20 12/07/20 ketoconazole 1 applic TOPICAL BID PRN 11/17/20 12/07/20 lidocaine [Lidoderm] 1 patch TOPICAL DAILY #15 ea 11/17/20 methotrexate (PF) 1 mg SUBCUT QWEEK 11/17/20 12/07/20 oxycodone-acetaminophen [Percocet] 1 tab PO TID PRN #8 tab 11/17/20 sertraline 200 mg PO DAILY 11/17/20 12/07/20 spironolactone 50 mg PO DAILY 11/17/20 12/07/20 buprenorphine 1 patch TRANSDERMAL QWEEK 12/07/20 12/07/20 cyclosporine [Restasis] 1 drp OPHTHALMIC (EYE) BID 12/07/20 12/07/20 gabapentin 400 mg PO BID 12/07/20 12/07/20 insulin lispro [Humalog KwikPen unit SUBCUT 12/07/20 Insulin] levothyroxine 175 mcg PO DAILY@0600 12/07/20 mesalamine [Pentasa] 1,000 mg PO TID 12/07/20 12/07/20 mirtazapine 7.5 mg PO QHS 12/07/20 12/07/20 oxycodone 10 mg PO TID PRN 12/07/20 12/07/20 ropinirole 1 mg PO QHS 12/07/20 12/07/20 sucralfate 1 g PO QID 12/07/20 12/07/20 Previous Rx's Medication Instructions Recorded albuterol sulfate 2.5 mg UPD Q2H PRN PRN #0 ml 03/28/19 insulin aspart U-100 [Novolog See Rx Instructions .ROUTE 03/28/19 Flexpen U-100 Insulin] .COMPLEX #0 ml ipratropium-albuterol 3 ml UPD Q6H #0 ml 03/28/19 pantoprazole 40 mg tablet,delayed 40 mg PO DAILY #30 tab 05/16/20 release lidocaine [Lidoderm] 1 patch TOPICAL DAILY #15 ea 11/17/20 oxycodone-acetaminophen [Percocet] 1 tab PO TID PRN #8 tab 11/17/20 Allergies Allergy/AdvReac Type Severity Reaction Status Date / Time infliximab Allergy Unknown Verified 12/07/20 13:22 methotrexate AdvReac Mild Unverified 12/07/20 13:22 atorvastatin calcium AdvReac Bones ache. Unverified 12/07/20 13:22 [From Lipitor] RAMICAIN AdvReac Uncoded 12/07/20 13:22 General Stated Complaint: Vascular HEMA: 2 Review of Systems Constitutional Constitutional: Reports as per HPI, Denies chills, Denies fever(s), Denies headache(s), Denies lethargy and Denies poor appetite Eyes Eyes: Denies change in vision ENT Ears, Nose, Mouth, and Throat: Denies dizziness and Denies headache(s) Cardiovascular Cardiovascular: Reports as per HPI, Denies chest pain, Denies chest pain with activity, Denies syncope, Denies edema, Reports leg edema (left), Reports lightheadedness, Denies radiating jaw, neck or arm pain, Reports dyspnea and Reports dyspnea on exertion Respiratory Respiratory: Reports as per HPI, Denies chest congestion, Denies cough, Denies pain on inspiration, Denies pain with cough, Reports dyspnea, Reports dyspnea on exertion and Denies wheezing Gastrointestinal Gastrointestinal: Reports as per HPI, Denies abdominal pain, Denies diarrhea, Denies nausea and Denies vomiting Genitourinary Genitourinary: Denies system reviewed and no additional complaints, except as documented (denies change in urinary habits) Musculoskeletal Musculoskeletal: Reports as per HPI and Denies back pain Integumentary/Breasts Skin/Breast: Reports as per HPI and Denies rash Neurologic Neurologic: Reports as per HPI, Denies dizziness, Denies syncope and Denies headache(s) Allergic/Immunologic Allergic/Immunologic: Denies wheezing [facility] Medical History Adrenal insufficiency Benign prostatic hyperplasia (07/03/15) Coronary artery disease Crohns disease Diabetes mellitus, type II, insulin dependent DVT (deep venous thrombosis) Erectile dysfunction of organic origin (07/03/15) GERD (gastroesophageal reflux disease) GI bleed Graves disease Hyperlipidemia Hypertension Hypothyroidism Obstructive sleep apnea Peripheral neuropathy Rheumatoid arthritis Sensorineural hearing loss, bilateral (01/28/15) Stroke 2018 Traumatic compression fracture of T12 thoracic vertebra Vitamin B12 deficiency Vitamin B6 deficiency Vitamin D deficiency Surgical History Graves' eye disease s/p surgery H/O lumbosacral spine surgery Prosthesis, Penile implant Family History Father Asthma Sister Asthma Social History Smoking/Tobacco Use Status: Former Tobacco Use Smoking risk assessment performed?: Yes Alcohol Intake: former Drug use: Occasionally Substance use type: does not use and marijuana Details: gummy bears 3 times a week for back pain Household members: spouse Number of Children: 5 current occupation: Retired [employer] What is your relationship status?: Panel score (0-1 are the most socially isolated patients): 1 Do you feel safe at home: Yes Do you feel safe in your relationship?: Yes Exam Const General: cooperative, uncomfortable, no acute distress, well developed and ill appearing chronically Nutritional Appearance: well nourished and overweight Orientation: alert, awake and oriented x3 HENMT Head: normal to inspection Ears: hearing grossly normal bilaterally Mouth: mucous membranes dry Resp Effort & Inspection: normal respiratory effort, able to speak in complete sentences and tachypneic Auscultation: crackles bilaterally at the base, no rales, no rhonchi and no wheezes Cardio Rate: regular rate Rhythm: regular rhythm Heart Sounds: S1 normal and S2 normal GI Inspection: normal to inspection, no edema and non-distended Palpation: soft, no hepatosplenomegaly, not firm, no guarding, not rigid and nontender Auscultation: normal bowel sounds Back/Spine/Pelvis Back: no CVA tenderness Neuro General: patient alert, patient awake and patient oriented x3 Cognition: normal cognition Speech: speech normal Extrem General: normal to inspection, capillary refill normal, no calf tenderness, edema (right hand, LLE) and other (capillary refill intact) Psych Appearance: grossly normal and well kempt Mental Status: mental status grossly normal Speech and Movement: speech and movement normal Course Vital Signs Vital signs: Vital Signs Pulse 88 12/07/20 10:05 Respiratory Rate 20 12/07/20 10:05 Blood Pressure 143/90 H 12/07/20 10:05 Pulse Oximetry 97 12/07/20 10:05 Temperature Source Skin 12/07/20 10:05 Pulse 88 12/07/20 10:05 Respiratory Rate 20 12/07/20 10:05 Blood Pressure 143/90 H 12/07/20 10:05 Blood Pressure Position Sitting 12/07/20 10:05 Pulse Oximetry 97 12/07/20 10:05 Oxygen Delivery Method Room Air 12/07/20 10:05 Oxygen Flow Rate 0 12/07/20 10:05 Pain Level 8 12/07/20 10:05
--- NOTE | 2020-12-07 10:30 | DI.RAD_ITS ---
Exam(s) XR CHEST 2V PA LATERAL EXAM: XR CHEST 2V PA LATERAL CLINICAL HISTORY: SOB TECHNIQUE: COMPARISON: CR XR RIBS LT W PA LAT CHEST from 11/17/2020 FINDINGS: Heart is enlarged. There are chronic changes of pulmonary fibrosis as noted on prior studies, unchan ged from November 2020. No pleural effusion seen. No focal consolidation. IMPRESSION: Cardiomegaly and pulmonary fibrosis. No evidence of acute change. RADIATION DOSE DELIVERED: Total DLP
--- NOTE | 2020-12-07 10:30 | RT.EKG_ITS ---
APPROVED REPORT Exam: Resting ECG Reason for Exam: SOB Patient Location: E HR:90 bpm ECG Measurements Heart Rate 90 AXIS FL 182 P 14 QRSd 119 QRS -26 QT 426 T 40 QTc 523 Conclusion Sinus rhythm... Atrial premature complex.. Inferiorq waves Prolonged QT interval..
[2020-12-07 12:04] LABS: Lactate 1.5 mmol/L (0.6-1.4)
[2020-12-07 12:08] LABS: Abs Immature Grans 0.11 10^3/uL (0.0-0.06); Absolute Eosinophil Count 0.27 10^3/uL (0.0-0.7); Absolute Lymphocyte Count 0.97 10^3/uL (1.2-3.4); Absolute Monocyte Count 0.58 10^3/uL (0.1-0.8); Basophils % 0.2; Eosinophils % 2.2; HCT 31.9 % (40.0-50.0); HGB 9.6 g/dL (13.5-17.5); Immature Grans % 0.9; MCH 29.2 pg (27.0-33.0); MCHC 30.1 % (32.0-36.0); MPV 9.5 fL (8.0-11.0); Monocytes % 4.8; Neutrophils % 83.9; Nucleated RBC 0 %; Platelet Count 427 10^3/uL (130-400); RBC 3.29 10^6/uL (4.36-5.78); RDW 19.3 % (11.8-14.1); WBC 12.11 10^3/uL (4.4-10.8)
[2020-12-07 12:09] LABS: Bilirubin Negative (Negative); Blood Trace-intact (Negative); Clarity Cloudy (Clear); Glucose Negative (Negative); Ketones Negative (Negative); Leukocyte Esterase Moderate (Negative); Nitrite Negative (Negative); Specific Gravity 1.025 (1.005-1.025)
[2020-12-07 12:10] LABS: Absolute Basophil Count 0.02 10^3/uL (0.0-0.2); Absolute Neutrophil Count 10.16 10^3/uL (1.2-6.7)
[2020-12-07 12:12] LABS: ESR 64 mm/hr (0-20)
[2020-12-07 12:21] LABS: Bacteria Moderate HPF (Negative); C & S Indicated? Yes; Casts Negative LPF (Negative); Crystals Negative HPF (Negative); Epithelial Cells Few HPF (Negative); Mucus Negative (Negative); WBC >50 HPF (0-5)
[2020-12-07 12:29] LABS: NT-proBNP 1113 pg/mL (<300)
[2020-12-07 12:32] LABS: ALT 22 U/L (16-63); AST 23 U/L (15-37); Alkaline Phosphatase 101 U/L (46-116); Anion Gap 9.6 mmol/L (3-11); BUN 13 mg/dL (7-18); Bilirubin, Total 0.7 mg/dL (0.2-1.0); C-Reactive Protein 14.83 mg/dL (0.0-0.3); CO2 27.4 mmol/L (21.0-32.0); Calcium 9.5 mg/dL (8.5-10.1); Chloride 101 mmol/L (98-107); Glucose 154 mg/dL (74-106); Potassium 4.3 mmol/L (3.5-5.1); Sodium 138 mmol/L (136-145); Total Protein 8.5 g/dL (6.4-8.2)
[2020-12-07 12:33] LABS: Troponin I < 0.05 ng/mL (<0.06)
[2020-12-07 12:34] LABS: TSH (W/Ref FT4) 43.34 uIU/mL (0.36-3.74)
[2020-12-07 12:42] LABS: D-Dimer > 7500 ng/mlFEU (<500)
[2020-12-07] MEDS: Furosemide 40 MG/4 ML VIAL IVP (12:54)
[2020-12-07] MEDS: levoFLOXacin 750 MG/150 ML BAG 100 MG IVPB (12:55)
[2020-12-07 13:01] LABS: PTT Activated 30.9 sec (21.0-27.5); Prothrombin Time 12.5 sec (9.3-11.0)
[2020-12-07 13:02] LABS: INR 1.2 (0.9-1.1)
[2020-12-07] MEDS: Normal Saline - Diluent 50 ML VIAL IV (13:44)
--- NOTE | 2020-12-07 13:55 | DI.VRAD_ITS ---
PROCEDURE INFORMATION: Exam: XR Chest Exam date and time: 12/07/2020 10:45 AM Age: 75 years old Clinical indication: Shortness of breath TECHNIQUE: Imaging protocol: XR of the chest. Views: 2 views. COMPARISON: CR XR RIBS LT W PA LAT CHEST 11/17/2020 11:45 AM FINDINGS: Lungs: Scattered interstitial fibrotic changes are present which are unchanged since previous study. No pneumonia is seen. Pleural spaces: Unremarkable. No pleural effusion. No pneumothorax. Heart/Mediastinum: The cardiac silhouette is enlarged but unchanged. Bones/joints: Unremarkable. IMPRESSION: 1. Stable cardiomegaly. 2. Stable interstitial fibrosis. 3. No acute abnormality. Dictated and Authenticated by: Reyes Schmidt MD. Ordering:QUINTIN Monson MD
[2020-12-07] MEDS: Omnipaque 350 MG/ML 100 ML BTL IJ (14:03)
--- NOTE | 2020-12-07 14:05 | DI.CT_ITS ---
Exam(s) CT CHEST PE CTA EXAM: CT CHEST PE CTA CLINICAL HISTORY: SOB, elevated d-dimer. TECHNIQUE: Imaging Protocol: Axial CT angiography was performed with multi-slice acquisition and mu lti-planar and/or 3D reconstructions. CONTRAST MATERIAL: Intravenous: Omnipaque 350 Contrast volume:structured data in ml COMPARISON: CT CT CHEST WO from 03/25/2019 FINDINGS: CT angiography of the chest was performed with intravenous infusion of 100 cc of Omnipaque 350. The lungs show chronic fibrotic changes, no gross interval change from examination of March 2019. No focal consolidation.. No pleural effusion. Tracheobronchial tree appears intact. No evidence of pulmonary embolic disease. Thoracic aorta is of normal diameter, no thoracic aortic an eurysm or dissection, major branch vessels appear intact. No mediastinal or hilar adenopathy. Images obtained through the upper abdomen show unremarkable appearance of the visualized portions of the liver, spleen, pancreas, adrenals, and kidneys. IMPRESSION: No evidence of pulmonary embolic disease. Chronic fibrotic changes noted in the lungs. RADIATION DOSE DELIVERED: 575.64mGy.cm Total DLP 575.64mGy.cm Total DLP CTDIvol DATA REPOSITORY: All CT scans at this facility are submitted to the National Radiology Data Registry (NRDR) Dose Index Registry (DIR) with the [employer] ([employer]). RADIATION OPTIMIZATION: All CT scans at this facility use at least one of these dose optimization te chniques: automated exposure control; mA and/or kV adjustment per patient size (includes targeted exa ms where dose is matched to clinical indication); or iterative reconstruction.
[2020-12-07 14:16] LABS: Source Nasal/Nares
--- NOTE | 2020-12-07 14:21 | DI.VRAD_ITS ---
PROCEDURE INFORMATION: Exam: CTA Chest With Contrast Exam date and time: 12/07/2020 1:34 PM Age: 75 years old Clinical indication: Shortness of breath; Patient HX: Sob/elevated d-dimer TECHNIQUE: Imaging protocol: Computed tomographic angiography of the chest with contrast. 3D rendering (Not supervised by radiologist): MIP and/or 3D reconstructed images were created by the technologist. Radiation optimization: All CT scans at this facility use at least one of these dose optimization techniques: automated exposure control; mA and/or kV adjustment per patient size (includes targeted exams where dose is matched to clinical indication); or iterative reconstruction. Contrast material: OMNI 350; Contrast volume: 100 ml; Contrast route: INTRAVENOUS (IV); COMPARISON: CT CHEST WO 03/25/2019 4:42 PM FINDINGS: Pulmonary arteries: Normal. No pulmonary emboli. Aorta: There is atherosclerotic calcification of the aorta. There is no aneurysm or dissection. Lungs: The there is bilateral pulmonary fibrosis. This is similar to previous study. No acute pneumonia is seen. Pleural spaces: Unremarkable. No pneumothorax. No pleural effusion. Heart: The heart is enlarged. There is calcification of the coronary arteries. Lymph nodes: Unremarkable. No enlarged lymph nodes. Bones/joints: Degenerative changes are present in the spine with sclerosis joint space narrowing and osteophytes. Soft tissues: Unremarkable. IMPRESSION: 1. No evidence of aortic aneurysm/dissection or pulmonary embolus. 2. Coronary artery disease. 3. Cardiomegaly. 4. Pulmonary emphysema and fibrosis. Dictated and Authenticated by: Reyes Schmidt MD. Ordering:QUINTIN Monson MD
[2020-12-07 14:39] LABS: Troponin I < 0.05 ng/mL (<0.06)
[2020-12-07 15:07] LABS: COVID-19 PCR Negative (Negative)
[2020-12-07] MEDS: oxyCODONE 10 MG TAB PO (16:07)
--- NOTE | 2020-12-07 20:29 | W.PM.HP.N ---
Date of service: 12/07/20 Time of Service: 18:00 Assessment and Plan Assessment and plan (1) Acute on chronic clinical systolic heart failure: Status: Acute Assessment and plan: Patient presents with symptoms of dyspnea and elevated proBNP of 1100 with normal troponin I levels. EKG shows no acute ischemic or acute injury pattern. 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 Patient also has evidence of poorly controlled hypothyroidism with a TSH of 43 which may be contributing to his CHF. There is also some question of medication compliance issues. Present time patient has improved after dose of Lasix 40 mg IV push. We will put him on a Lasix drip 5 mg IV per hour overnight and try to diurese him further. We will get an echocardiogram in the morning to assess his LV and RV function. Try to get a complete list of his medications in the morning from his . I will continue him on his Crestor and his irbesartan and his spironolactone. It is unclear as to whether or not he takes amlodipine or not. Does not appear that he is chronically on a loop diuretic. Clearly he would benefit from being on a loop diuretic. Also the patient supposed be chronically anticoagulated with Xarelto but in the presence of what appears to be an acute on chronic DVT in his left leg I am not sure whether is due to medication noncompliance or due to Xarelto failure. (2) Left leg DVT: Status: Acute Assessment and plan: Start the patient on systemic heparin tonight and I will talk with hematology in the morning to discuss whether we should change him to a different DOAC versus trying to ensure compliance with his Xarelto. Qualifiers: Affected thrombotic vein of extremity: femoral Chronicity: unspecified Qualified Code(s): I82.412 - Acute embolism and thrombosis of left femoral vein (3) UTI (urinary tract infection): Status: Acute Assessment and plan: Patient has evidence of a UTI. Patient was given a dose of Levaquin in the emergency department. I will keep him on IV Rocephin 2 g daily pending urinary culture results. There is no indication for Levaquin in this gentleman given his peripheral neuropathy and advanced age. If he has something that is resistant to cephalosporins then we could consider a quinolone. Qualifiers: Urinary tract infection type: acute cystitis Hematuria presence: with hematuria Qualified Code(s): N30.01 - Acute cystitis with hematuria (4) Diabetes mellitus, type II, insulin dependent: Status: Acute Assessment and plan: Continue with his Levemir. We will also cover with sliding scale NovoLog and monitor blood sugars before meals and at bedtime. Check a glycohemoglobin A1c in the morning (5) Hypothyroidism: Status: Chronic Assessment and plan: Resume his levothyroxine and Cytomel. I will leave it to Dr. Perkins and the patient's surgery center administrator to make further adjustments. I think it may be matter for medication compliance. There is also concerned about medication interaction and whether or not he is taking his thyroid replacement on empty stomach. Qualifiers: Hypothyroidism type: postoperative Qualified Code(s): E89.0 - Postprocedural hypothyroidism (6) Rheumatoid arthritis: Status: Chronic Assessment and plan: I will increase his Medrol to 3 times a day for 3 days to cover for stress dose then he can go back to his 4 mg once a day. I am holding his immunosuppressant medications until his urinary tract infection is under control. Also we need to verify his medications as it is unclear is whether he still on methotrexate or not. Qualifiers: Rheumatoid arthritis location: multiple sites Rheumatoid factor presence: unspecified presence Qualified Code(s): M06.9 - Rheumatoid arthritis, unspecified (7) Crohns disease: Status: Chronic Assessment and plan: Holding immunosuppressants until UTI is under control Qualifiers: Gastrointestinal tract location: unspecified location Digestive disease complication type: unspecified complication Qualified Code(s): K50.919 - Crohn's disease, unspecified, with unspecified complications History of Present Illness History of Present Illness Chief Complaint: left leg swelling Narrative: 75-year-old male with a past medical history of coronary artery disease with previous myocardial infarction x5 and stents x7 who is chronically anticoagulated with Xarelto due to a DVT in his left leg as well as previous arm DVT. 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 Denies any chest pain or pressure but admits to exertional dyspnea. He denies any recent weight gain. In the emergency department evaluation revealed stable vital signs with a BP 143/90 respiratory rate of 20 pulse 88 and pulse oximetry 97% on room air. He is afebrile. Work-up included routine labs EKG and subsequent CT of the chest per PE protocol. CBC was remarkable for white count of 12,000 and anemia with hemoglobin 9.6 g with macrocytic indices. Platelet count 4 27,000. His hemoglobin 9.6 appears to be stable over the last several readings. CMP was unremarkable. He has normal BUN and creatinine at 13 and 1.0. Normal transaminases. Troponin I level was normal at less than 0.05x2 sets. CRP is elevated at 14.8 proBNP is elevated at 1100 his TSH is high at 43.3 with a free T4 of 0.8 coagulation studies showed elevated INR of 1.2 prothrombin time 12.5 activated partial thromboplastin time of 30.9 and a D-dimer greater than 7500. Urinalysis is remarkable for moderate leukocyte Estrace negative for nitrites trace of blood negative ketones 30 mg/dL protein greater than 50 white cells and 5-10 red cells with moderate bacteria. His acute asymmetrical left leg swelling along with elevated D-dimer raise suspicion for a PE and DVT. CTA chest with contrast showed no evidence of pulmonary embolic disease but he has chronic fibrotic changes noted in his lungs. No pleural effusions were seen. Chest x-ray had been done and showed cardiomegaly and pulmonary fibrosis. EKG demonstrated sinus rhythm at a rate of 90 bpm he has inferior Q waves consistent with old inferior infarct. He has prominent R waves in the anterior precordial leads Treatment in the ER included Levaquin 750 mg IV for UTI and he was given furosemide 40 mg IV push. Patient states since receiving the Lasix this afternoon his left leg edema has improved but not resolved. His dyspnea is improved. Patient is admitted for treatment of presumptive left leg DVT as well as UTI and acute on chronic heart failure. When I reviewed his medications I asked him if he has ever missed any medications. He says that he gets his medicines and a pill pack sent to him by community pharmacy in order to minimize risk of missing any medications but he admits that over the last couple weeks he may have missed a few doses of his Xarelto. Review of Systems Constitutional Constitutional: Denies chills, Denies fever(s), Reports frequent falls and Denies poor appetite Eyes Eyes: Reports system reviewed and no additional complaints, except as documented ENT Ears, Nose, Mouth, and Throat: Reports system reviewed and no additional complaints, except as documented Cardiovascular Cardiovascular: Reports as per HPI, Denies chest pain, Denies chest pain at rest, Reports pedal edema, Reports leg edema, Reports dyspnea and Reports dyspnea on exertion Respiratory Respiratory: Denies chest congestion, Denies cough, Denies excessive phlegm production, Reports dyspnea and Reports dyspnea on exertion Gastrointestinal Gastrointestinal: Reports system reviewed and no additional complaints, except as documented Genitourinary Genitourinary: Reports system reviewed and no additional complaints, except as documented Musculoskeletal Musculoskeletal: Reports joint swelling, Reports stiffness and Reports tingling Integumentary/Breasts Skin/Breast: Reports system reviewed and no additional complaints, except as documented Neurologic Neurologic: Reports frequent falls, Reports tingling and Reports paresthesias (Feet) Psychiatric Psychiatric: Reports system reviewed and no additional complaints, except as documented Endocrine Endocrine: Reports system reviewed and no additional complaints, except as documented [facility] Medical History Adrenal insufficiency Benign prostatic hyperplasia (07/03/15) Coronary artery disease Crohns disease Diabetes mellitus, type II, insulin dependent DVT (deep venous thrombosis) Erectile dysfunction of organic origin (07/03/15) GERD (gastroesophageal reflux disease) GI bleed Graves disease Hyperlipidemia Hypertension Hypothyroidism Obstructive sleep apnea Peripheral neuropathy Rheumatoid arthritis Sensorineural hearing loss, bilateral (01/28/15) Stroke 2018 Traumatic compression fracture of T12 thoracic vertebra Vitamin B12 deficiency Vitamin B6 deficiency Vitamin D deficiency Surgical History Graves' eye disease s/p surgery H/O lumbosacral spine surgery Prosthesis, Penile implant Family History Father Asthma Sister Asthma Social History Smoking/Tobacco Use Status: Former Tobacco Use Smoking risk assessment performed?: Yes Alcohol Intake: former Drug use: Occasionally Substance use type: does not use and marijuana Details: gummy bears 3 times a week for back pain Household members: spouse Number of Children: 5 current occupation: Retired [employer] What is your relationship status?: Panel score (0-1 are the most socially isolated patients): 1 Do you feel safe at home: Yes Do you feel safe in your relationship?: Yes Meds Allergies and Home Medications Allergies Allergy/AdvReac Type Severity Reaction Status Date / Time infliximab Allergy Unknown Verified 12/07/20 13:22 methotrexate AdvReac Mild Unverified 12/07/20 13:22 atorvastatin calcium AdvReac Bones ache. Unverified 12/07/20 13:22 [From Lipitor] RAMICAIN AdvReac Uncoded 12/07/20 13:22 Home Medications Medication Instructions Recorded Confirmed Type folic acid 1 mg PO QAM 10/13/12 12/07/20 History finasteride 5 mg PO DAILY #90 tab-cap 03/29/14 12/07/20 History calcium carbonate-vitamin D3 2 ea PO DAILY 07/03/15 04/30/20 History fluticasone propionate [Flonase 9.9 ml NS BID PRN 07/03/15 12/07/20 History Allergy Relief] nitroglycerin [Nitrostat] 0.4 mg BUCCAL PRN PRN tab-cap 07/03/15 12/07/20 History pyridoxine (vitamin B6) [Vitamin 50 mg PO DAILY 07/03/15 12/07/20 History B-6] rosuvastatin [Crestor] 40 mg PO HS 07/03/15 12/07/20 History amlodipine 5 mg tablet 5 mg PO DAILY 08/23/18 04/30/20 History bupropion HCl 150 mg 24 hr tablet, 150 mg PO QAM 08/23/18 12/07/20 History extended release calcitonin (salmon) 200 1 spray INTRANA AL DAILY 08/23/18 04/30/20 History unit/actuation nasal spray docusate sodium 100 mg capsule 100 mg PO DAILY 08/23/18 04/30/20 History tamsulosin 0.4 mg capsule 0.4 mg PO DAILY 08/23/18 12/07/20 History Saccharomyces boulardii 250 mg PO DAILY 03/05/19 11/17/20 History acetaminophen 500 mg PO BID 03/05/19 04/30/20 History cholecalciferol (vitamin D3) 2,000 unit PO DAILY 03/05/19 12/07/20 History [Vitamin D3] diclofenac sodium [Voltaren] 1 % TOPICAL TID PRN 03/05/19 04/30/20 History ipratropium bromide 2 spray INTRANASAL QID PRN 03/05/19 04/30/20 History leflunomide 20 mg PO DAILY 03/05/19 04/30/20 History liothyronine [Cytomel] 5 mcg PO DAILY 03/05/19 12/07/20 History albuterol sulfate 2.5 mg UPD Q2H PRN PRN #0 ml 03/28/19 12/07/20 Rx insulin aspart U-100 [Novolog See Rx Instructions .ROUTE 03/28/19 04/30/20 Rx Flexpen U-100 Insulin] .COMPLEX #0 ml ipratropium-albuterol 3 ml UPD Q6H #0 ml 03/28/19 12/07/20 Rx Levemir FlexTouch U-100 Insuln See Rx Instructions .ROUTE .COMPLEX 04/11/20 12/07/20 History methylprednisolone 4 mg PO DAILY 04/11/20 12/07/20 History pantoprazole 40 mg tablet,delayed 40 mg PO DAILY #30 tab 05/16/20 12/07/20 Rx release Entyvio 300 mg IV DIRECTED 11/17/20 12/07/20 History Xarelto 20 mg PO DAILY 11/17/20 12/07/20 History albuterol sulfate [ProAir HFA] 2 puff INHALATION 6XD PRN 11/17/20 12/07/20 History irbesartan 300 mg PO DAILY 11/17/20 12/07/20 History ketoconazole 1 applic TOPICAL BID PRN 11/17/20 12/07/20 History lidocaine [Lidoderm] 1 patch TOPICAL DAILY #15 ea 11/17/20 Rx methotrexate (PF) 1 mg SUBCUT QWEEK 11/17/20 12/07/20 History oxycodone-acetaminophen [Percocet] 1 tab PO TID PRN #8 tab 11/17/20 Rx sertraline 200 mg PO DAILY 11/17/20 12/07/20 History spironolactone 50 mg PO DAILY 11/17/20 12/07/20 History buprenorphine 1 patch TRANSDERMAL QWEEK 12/07/20 12/07/20 History cyclosporine [Restasis] 1 drp OPHTHALMIC (EYE) BID 12/07/20 12/07/20 History gabapentin 400 mg PO BID 12/07/20 12/07/20 History insulin lispro [Humalog KwikPen unit SUBCUT 12/07/20 History Insulin] levothyroxine 175 mcg PO DAILY@0600 12/07/20 History mesalamine [Pentasa] 1,000 mg PO TID 12/07/20 12/07/20 History mirtazapine 7.5 mg PO QHS 12/07/20 12/07/20 History oxycodone 10 mg PO TID PRN 12/07/20 12/07/20 History ropinirole 1 mg PO QHS 12/07/20 12/07/20 History sucralfate 1 g PO QID 12/07/20 12/07/20 History Exam Narrative Exam Narrative: Elderly white male who is alert and oriented person place time circumstance. He is in no acute distress. Denies any chest pain not currently dyspneic. HEENT is remarkable for poor dentition normal mucosal membranes. Neck is supple no overt JVD normal carotid pulses Lungs with bibasilar rales no rhonchi or wheezing he has dullness to percussion over both bases Heart is regular rate and rhythm with no appreciable murmur or rub Abdomen is obese soft nontender NABS no bruits no guarding no hepatosplenomegaly Lower extremities left thigh and left calf and ankle and left foot are edematous. He has no cyanosis but he has coolness to both feet and absence of palpable pedal pulses. There is no calf tenderness or thigh tenderness with palpation. He has normal femoral pulses bilaterally. Right leg has trace of edema in the lower tibia and foot but no edema of the calf or thigh on the right side. Neurologic exam reveals diminished sensation to light touch over his feet and lower legs. Noxious stimulation is intact. He has no facial asymmetry no dysarthric speech he has full extraocular motion intact. Visual willis were not tested. DTRs not tested. Gross motor strength appears to be intact in both upper and lower extremities. Results Labs Result diagrams: 12/07/20 11:58 12/07/20 11:58 Labs: Laboratory Results - last 24 hr 12/07/20 12/07/20 12/07/20 11:35 11:58 11:58 WBC RBC Hgb Hct MCV MCH MCHC RDW Plt Count MPV Immature Gran % Neutrophils % Lymphocytes % Monocytes % Eosinophils % Basophils % Nucleated RBC % Absolute Neutrophils Absolute Lymphocytes Absolute Monocytes Absolute Eosinophils Absolute Basophils ESR PT INR APTT D-Dimer VBG Lactate 1.5 H Sodium 138 Potassium 4.3 Chloride 101 Carbon Dioxide 27.4 Anion Gap 9.6 BUN 13 Creatinine 1.0 Estimated GFR/1.73 m2 >= 60.00 Glucose 154 H Calcium 9.5 Total Bilirubin 0.7 AST 23 ALT 22 Alkaline Phosphatase 101 Troponin I < 0.05 C-Reactive Protein 14.83 H NT-Pro-B Natriuret Pep Total Protein 8.5 H Albumin 3.0 L TSH 43.34 H Free T4 0.80 Urine Color Yellow Urine Clarity Cloudy Urine pH 7.0 Ur Specific [place] 1.025 Urine Protein 30 H Urine Ketones Negative Urine Blood Trace-intact H Urine Nitrite Negative Urine Bilirubin Negative Urine Urobilinogen 4.0 H Ur Leukocyte Esterase Moderate H Urine RBC 5-10 H Urine WBC >50 H Ur Epithelial Cells Few Urine Crystals Negative Urine Bacteria Moderate Urine Casts Negative Urine Mucus Negative Ur Culture Indicated? Yes Urine Glucose Negative COVID-19 Source SARS-CoV-2 (PCR) Patient ABO/Rh Antibody Screen 12/07/20 12/07/20 12/07/20 11:58 11:58 11:58 WBC 12.11 H RBC 3.29 L Hgb 9.6 L Hct 31.9 L MCV 97.0 H MCH 29.2 MCHC 30.1 L RDW 19.3 H Plt Count 427 H MPV 9.5 Immature Gran % 0.9 Neutrophils % 83.9 Lymphocytes % 8.0 Monocytes % 4.8 Eosinophils % 2.2 Basophils % 0.2 Nucleated RBC % 0 Absolute Neutrophils 10.16 H Absolute Lymphocytes 0.97 L Absolute Monocytes 0.58 Absolute Eosinophils 0.27 Absolute Basophils 0.02 ESR 64 H PT INR APTT D-Dimer > 7500 H VBG Lactate Sodium Potassium Chloride Carbon Dioxide Anion Gap BUN Creatinine Estimated GFR/1.73 m2 Glucose Calcium Total Bilirubin AST ALT Alkaline Phosphatase Troponin I C-Reactive Protein NT-Pro-B Natriuret Pep Total Protein Albumin TSH Free T4 Urine Color Urine Clarity Urine pH Ur Specific [place] Urine Protein Urine Ketones Urine Blood Urine Nitrite Urine Bilirubin Urine Urobilinogen Ur Leukocyte Esterase Urine RBC Urine WBC Ur Epithelial Cells Urine Crystals Urine Bacteria Urine Casts Urine Mucus Ur Culture Indicated? Urine Glucose COVID-19 Source SARS-CoV-2 (PCR) Patient ABO/Rh Antibody Screen 0812/07/20 12/07/20 11:58 11:58 11:58 WBC RBC Hgb Hct MCV MCH MCHC RDW Plt Count MPV Immature Gran % Neutrophils % Lymphocytes % Monocytes % Eosinophils % Basophils % Nucleated RBC % Absolute Neutrophils Absolute Lymphocytes Absolute Monocytes Absolute Eosinophils Absolute Basophils ESR PT 12.5 H INR 1.2 H APTT 30.9 H D-Dimer VBG Lactate Sodium Potassium Chloride Carbon Dioxide Anion Gap BUN Creatinine Estimated GFR/1.73 m2 Glucose Calcium Total Bilirubin AST ALT Alkaline Phosphatase Troponin I C-Reactive Protein NT-Pro-B Natriuret Pep 1113 H Total Protein Albumin TSH Free T4 Urine Color Urine Clarity Urine pH Ur Specific [place] Urine Protein Urine Ketones Urine Blood Urine Nitrite Urine Bilirubin Urine Urobilinogen Ur Leukocyte Esterase Urine RBC Urine WBC Ur Epithelial Cells Urine Crystals Urine Bacteria Urine Casts Urine Mucus Ur Culture Indicated? Urine Glucose COVID-19 Source SARS-CoV-2 (PCR) Patient ABO/Rh A Positive Antibody Screen NEGATIVE 12/07/20 12/07/20 14:05 14:05 WBC RBC Hgb Hct MCV MCH MCHC RDW Plt Count MPV Immature Gran % Neutrophils % Lymphocytes % Monocytes % Eosinophils % Basophils % Nucleated RBC % Absolute Neutrophils Absolute Lymphocytes Absolute Monocytes Absolute Eosinophils Absolute Basophils ESR PT INR APTT D-Dimer VBG Lactate Sodium Potassium Chloride Carbon Dioxide Anion Gap BUN Creatinine Estimated GFR/1.73 m2 Glucose Calcium Total Bilirubin AST ALT Alkaline Phosphatase Troponin I < 0.05 C-Reactive Protein NT-Pro-B Natriuret Pep Total Protein Albumin TSH Free T4 Urine Color Urine Clarity Urine pH Ur Specific [place] Urine Protein Urine Ketones Urine Blood Urine Nitrite Urine Bilirubin Urine Urobilinogen Ur Leukocyte Esterase Urine RBC Urine WBC Ur Epithelial Cells Urine Crystals Urine Bacteria Urine Casts Urine Mucus Ur Culture Indicated? Urine Glucose COVID-19 Source Nasal/Nares SARS-CoV-2 (PCR) Negative Patient ABO/Rh Antibody Screen Last Vital Signs Temp 36.2 C L 12/07/20 16:41 Pulse 91 H 12/07/20 16:41 Resp 22 12/07/20 16:41 BP 122/72 12/07/20 16:41 Pulse Ox 96 12/07/20 16:41
[2020-12-07] MEDS: rOPINIRole 0.5 MG TAB 1 MG PO (22:32)
[2020-12-07] MEDS: Rosuvastatin 10 MG TAB 40 MG PO (22:33)
[2020-12-07] MEDS: Potassium Chloride 20 MEQ TABCR PO (22:36)
[2020-12-07] MEDS: Sucralfate 1 GM TAB PO (22:36)
[2020-12-07] MEDS: Fluticasone NASAL SPRAY 16 GM BTL NS (22:42)
[2020-12-07] MEDS: Mirtazapine 15 MG TAB 7.5 MG PO (23:52)
[2020-12-08] VITALS (7 sets, daily range): BP systolic 109–125; BP diastolic 65–75; PULSE 68–76; RESP 16–19; TEMP 36.4–36.8; O2SAT 94–98
[2020-12-08] MEDS: Acetaminophen 325 MG TAB PO (00:40)
[2020-12-08] MEDS: Diclofenac 1% Gel 100 GM TUBE TP ×4 (01:48→20:37)
[2020-12-08 05:51] LABS: Abs Immature Grans 0.07 10^3/uL (0.0-0.06); Absolute Basophil Count 0.02 10^3/uL (0.0-0.2); Absolute Lymphocyte Count 2.46 10^3/uL (1.2-3.4); Basophils % 0.3; Eosinophils % 3.8; HCT 23.7 % (40.0-50.0); Immature Grans % 0.9; Lymphocytes % 30.8; MCHC 30.4 % (32.0-36.0); MCV 95.6 fL (80-95); MPV 9.8 fL (8.0-11.0); Neutrophils % 54.2; Nucleated RBC 0 %; Platelet Count 355 10^3/uL (130-400); RBC 2.48 10^6/uL (4.36-5.78); RDW 19.1 % (11.8-14.1); RDW-SD 66.8 fL
[2020-12-08 06:00] LABS: Anion Gap 8.1 mmol/L (3-11); BUN 20 mg/dL (7-18); CO2 26.9 mmol/L (21.0-32.0); CREATININE 1.2 mg/dL (0.70-1.30); Calcium 8.1 mg/dL (8.5-10.1); Chloride 101 mmol/L (98-107); Estimated GFR 58.86 (mL/min/1.73m2); Glucose 229 mg/dL (74-106); Magnesium 1.7 mg/dL (1.8-2.4); Sodium 136 mmol/L (136-145)
[2020-12-08 06:01] LABS: Absolute Neutrophil Count 4.34 10^3/uL (1.2-6.7)
[2020-12-08 06:08] LABS: PTT Activated 59.1 sec (21.0-27.5)
[2020-12-08] MEDS: Levothyroxine 175 MCG TAB PO (06:10)
[2020-12-08 06:25] LABS: HGB 7.2 g/dL (13.5-17.5)
[2020-12-08 06:26] LABS: Anisocytosis 2+; Basophilic Stippling Present; Hypochromasia 2+; Poikilocytes 1+; Polychromasia Present
--- NOTE | 2020-12-08 07:00 | DI.US_ITS ---
APPROVED REPORT EXAM: Comprehensive 2D, Doppler, and color-flow Echocardiogram Other Information Study Quality: Fair. Technically limited study due to body habitus, inability to position patient. Conclusion Left Ventricle : The left ventricle is normal size. Left ventricular systolic function is mildly decr eased. Mild concentric left ventricular hypertrophy. There is global hypokinesis of the left ventricl e. The left ventricular diastolic function is normal. LVEF is 48%. Right Ventricle : Right ventricle is not well visualized. Atria : Left atrium is borderline dilated. The right atrium size is normal. Aortic Valve : The Aortic valve is sclerotic. Aortic valve is probably trileaflet. Mild aortic regurg itation. No hemodynamically significant valvular aortic stenosis. Great Vessels : The aortic root is normal in size. The ascending aorta is mildly dilated. Aortic arch is not well visualized. Due to poor image quality, the IVC could not be assessed. Please see remainder of study for further details. Wall motion Left Ventricle The left ventricle is normal size. Left ventricular systolic function is mildly decreased. Mild ricardo ntric left ventricular hypertrophy. There is global hypokinesis of the left ventricle. The left ventr icular diastolic function is normal. There is no ventricular septal defect visualized. LVEF is 48%. Right Ventricle Right ventricle is not well visualized. Right ventricular systolic function could not be assessed. Atria Left atrium is borderline dilated. The right atrium size is normal. The interatrial septum is intact with no evidence for an atrial septal defect. Aortic Valve The Aortic valve is sclerotic. Aortic valve is probably trileaflet. No hemodynamically significant va lvular aortic stenosis. Mild aortic regurgitation. Mitral Valve Mild mitral annular calcification. No evidence of mitral valve stenosis. Trace mitral regurgitation. Tricuspid Valve The tricuspid valve is normal in structure. There is no tricuspid valve stenosis. Trace tricuspid reg urgitation. Unable to assess PA pressure. Pulmonic Valve The pulmonary valve is normal in structure. There is no pulmonic valvular stenosis. Trace pulmonic re gurgitation. Great Vessels The aortic root is normal in size. The ascending aorta is mildly dilated. Aortic arch is not well vis ualized. Due to poor image quality, the IVC could not be assessed. Pericardium There is no pericardial effusion. 2D Dimensions IVSD d PLAX 1.25 cm M: 0.6-1.2 LV Vol A2C d MOD 156.2 mL LVPW d PLAX 1.25 cm M: 0.6 - 1.2 LV Vol A4C d MOD 189.0 mL LVID d PLAX 5.71 cm M: 4.2 - 5.8 LA vol/ BSA A4C s A-L 70.0 mL/m2 LVDs 4.20 cm M: 2.5 - 4.0 LA Area A4C s MOD 36.31 cm2 Ao Root d 2.69 cm M: 3.1 - 3.7 LV EF A4C MOD 47.9 % Ao Asc Diam d 3.65 cm M: 2.6 - 3.4 LV EF A2C MOD 49.5 % LV EF Teichholz 50.2 % LV EF Biplane MOD 49.7 % LVEF (Thompson's) 49.69 % M: 52 - 72 SV 89.15 mL LV Volume 130.14 mL M: 62 - 150 SV Index 40.18 mL/m2 LV Volume Index 58.62 mL/m2 M: 34 - 74 LV Vol Biplane MOD 179.4 mL FS 25.85 % M-Mode TAPSE 2.37 cm (M/F) >1.7 LV Diastology MV E' medial 0.089 (>0.07 m/s) E/A Ratio 0.9 LV E/e MED 10.95 (<14) MV E Vmax 0.98 (0.4-1.3 m/s) MV E' lateral 0.101 (>0.1 m/s) MV A Vmax 1.10 (0.4-1.3 m/s) LV E/e LAT 9.60 (<14) MV E/A Ratio 0.85 MV E/E' medial 10.96 MV E/E' lateral 9.64 Aortic Valve LVOT Area 2.65 cm2 AoV Area Vmax 1.47 cm2 LVOT Vmax 1.10 m/s AoV Area/ BSA (Vmax) 0.66 cm2/m2 LVOT Mean Roberto. 0.72 m/s ABBE Mean Roberto. 1.40 cm2 LVOT Peak Grad 4.8 mmHg ABBE Mean Roberto. Index 0.63 cm2/m2 LVOT Mean Grad 2.4 mmHg AR DT 2234 msec LVOT VTI 0.198 m AR PHT 648 msec LVOT Diam s 1.80 cm AoV Vmax 1.97 m/s Velocity Ratio 0.55 AoV Mean Roberto. 1.37 m/s AoV Peak Grad 15.6 mmHg LVOT SV 52.50 mL AoV Mean Grad 8.4 mmHg AoV VTI 0.322 m AoV Area VTI 1.63 cm2 AoV Area/ BSA (VTI) 0.73 cm/m2 Mitral Valve MV DT 334 (160-240 msec) MV PHT 97 msec MV Area PHT 2.27 cm2 MV VTI 0.331 m MV Area VTI 1.59 (4.0-6.0 cm2) Pulmonary Valve PV Vmax 1.50 (0.5-1.5 m/s) RVOT Peak Gr. 4.33 mmHg PV Peak Grad 9.0 mmHg RVOT Mean Gr. 2.30 mmHg PV Mean Grad 4.3 mmHg RVOT VTI 0.219 m PV VTI 0.254 m RVOT Vmax 1.04 m/s
--- NOTE | 2020-12-08 07:00 | DI.US_ITS ---
Exam(s) US LOWER EXTREMITY VENOUS LT EXAM: US LOWER EXTREMITY VENOUS LT CLINICAL HISTORY: dvt left leg; swelling left leg; elevated d-dimer TECHNIQUE: Grayscale, color, and doppler imaging of the deep venous system of the lower extremity w as performed. COMPARISON: US Cardiac from 09/21/2016 FINDINGS: This is a very positive study. There is extensive DVT both above and below the knee There is extensive intraluminal clot load extending from the visualized external iliac vein continuou sly down through and involving the common femoral vein, femoral vein and popliteal vein as well as co ntinuing below the calf into the peroneal veins. Ipsilateral greater saphenous vein is patent IMPRESSION: 1. Positive study for extensive DVT in the left lower extremity from the groin down to almost the an kle level. 2. Please note that there may also be thrombus above the level of the visualized external iliac vein . DATA REPOSITORY:
[2020-12-08] MEDS: methylPREDNISolone 4 MG TAB PO ×3 (08:27→20:35)
[2020-12-08] MEDS: Tamsulosin 0.4 MG CAPCR PO (08:27)
[2020-12-08] MEDS: Sertraline 50 MG TAB 200 MG PO (08:27)
[2020-12-08] MEDS: Spironolactone 50 MG TAB PO (08:27)
[2020-12-08] MEDS: Irbesartan 75 MG TAB 300 MG PO (08:27)
[2020-12-08] MEDS: Finasteride 5 MG TAB PO (08:27)
[2020-12-08] MEDS: Liothyronine 5 MCG TAB PO (08:28)
[2020-12-08] MEDS: buPROPion-XL 150 MG TABCR PO (08:28)
[2020-12-08] MEDS: Sucralfate 1 GM TAB PO ×4 (08:28→22:03)
[2020-12-08] MEDS: Folic Acid 1 MG TAB PO (08:28)
[2020-12-08] MEDS: Gabapentin 400 MG CAP PO ×2 (08:28→20:35)
[2020-12-08] MEDS: Pantoprazole 40 MG TABCR PO (08:28)
[2020-12-08] MEDS: Fluticasone NASAL SPRAY 16 GM BTL NS ×2 (08:30→20:36)
[2020-12-08 08:45] LABS: HCT 26.1 % (40.0-50.0); HGB 7.9 g/dL (13.5-17.5)
--- NOTE | 2020-12-08 09:58 | PGE_ITS ---
Date of Service Date of service: 12/08/20 Time of Service: 09:58 Assessment and Plan Assessment and plan (1) Acute on chronic clinical systolic heart failure: Status: Acute Assessment and plan: change iv lasix to oral lasix; resume spironolactone; continue his Irbesartan. Patient is not on a beta xavi but given his CAD and CM he ought to be on one. However, I will wait until I get his echo and he is euvolemic before initiation of BB. (2) Left leg DVT: Status: Acute Assessment and plan: cont. heparin drip. check formal US of his left leg. The question will be whether to resume Xarelto or put him on Pradaxa. I am not convinced that this was a Xarelto failure rather than a compliance issue Qualifiers: Affected thrombotic vein of extremity: femoral Chronicity: unspecified Qualified Code(s): I82.412 - Acute embolism and thrombosis of left femoral vein (3) UTI (urinary tract infection): Status: Acute Assessment and plan: cont. Rocephin pending ID/sensitivity of his urine culture (currently just reporting GNR) Qualifiers: Urinary tract infection type: acute cystitis Hematuria presence: with hematuria Qualified Code(s): N30.01 - Acute cystitis with hematuria (4) Diabetes mellitus, type II, insulin dependent: Status: Acute Assessment and plan: Continue with his Levemir. We will also cover with sliding scale NovoLog and monitor blood sugars before meals and at bedtime. Given his anemia, I am not sure that an HbA1C will be valid. I will order a fructosamine level (5) Hypothyroidism: Status: Chronic Assessment and plan: Resume his levothyroxine and Cytomel. I will leave it to Dr. 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 I think it may be matter for medication compliance. There is also concerned about medication interaction and whether or not he is taking his thyroid replacement on empty stomach. Qualifiers: Hypothyroidism type: postoperative Qualified Code(s): E89.0 - Postprocedural hypothyroidism (6) Rheumatoid arthritis: Status: Chronic Assessment and plan: I will increase his Medrol to 3 times a day for 3 days to cover for stress dose then he can go back to his 4 mg once a day. I am holding his immunosuppressant medications until his urinary tract infection is under control. Also we need to verify his medications as it is unclear is whether he still on methotrexate or not. Qualifiers: Rheumatoid arthritis location: multiple sites Rheumatoid factor presence: unspecified presence Qualified Code(s): M06.9 - Rheumatoid arthritis, unspecified (7) Crohns disease: Status: Chronic Assessment and plan: Holding immunosuppressants until UTI is under control Qualifiers: Gastrointestinal tract location: unspecified location Digestive disease complication type: unspecified complication Qualified Code(s): K50.919 - Crohn's disease, unspecified, with unspecified complications Subjective Subjective Interval history since last seen: Patient c/o left leg pain overnight. Patient is on heparin drip for recurrent left leg DVT. I did POCUS last night and found left femoral vein down to left popliteal noncompressible. Formal US is pending. He also has UTI w/ GNR but is afebrile. He received Levaquin in the ER yesterday but I have put him on Rocephin pending results of his cultures. He was on lasix drip overnight for acute on chronic CHF. Repeat echo is pending. He denies dyspnea or chest pain. He will be switched to oral lasix today. Exam Narrative Exam Narrative: Elderly white male who is alert and oriented x 3; no distress, sitting up in bed; just finished breakfast Lungs: right basilar rales; upper willis clear Heart: RRR, no murmur Abdomen: soft, nontender Extremities: right hand swelling (probably his RA); no edema of upper arm (I did compression study w/ POCUS last night and his veins were compressible) Lower extremities: left leg swelling improved but still edematous particularly in the thigh and knee; feet warm, no cyanosis Objective Last Vital Signs Temp 36.4 C L 12/08/20 08:29 Pulse 68 12/08/20 08:29 Resp 19 12/08/20 08:29 BP 124/74 12/08/20 08:29 Pulse Ox 97 12/08/20 08:29 Laboratory Results - last 24 hr 12/07/20 12/07/20 12/07/20 11:35 11:58 11:58 WBC RBC Hgb Hct MCV MCH MCHC RDW Plt Count MPV Immature Gran % Neutrophils % Lymphocytes % Monocytes % Eosinophils % Basophils % Nucleated RBC % Absolute Neutrophils Absolute Lymphocytes Absolute Monocytes Absolute Eosinophils Absolute Basophils RBC Morphology Polychromasia Hypochromasia Poikilocytosis Basophilic Stippling Anisocytosis ESR PT INR APTT D-Dimer VBG Lactate 1.5 H Sodium 138 Potassium 4.3 Chloride 101 Carbon Dioxide 27.4 Anion Gap 9.6 BUN 13 Creatinine 1.0 Estimated GFR/1.73 m2 >= 60.00 Glucose 154 H Calcium 9.5 Magnesium Total Bilirubin 0.7 AST 23 ALT 22 Alkaline Phosphatase 101 Troponin I < 0.05 C-Reactive Protein 14.83 H NT-Pro-B Natriuret Pep Total Protein 8.5 H Albumin 3.0 L TSH 43.34 H Free T4 0.80 Urine Color Yellow Urine Clarity Cloudy Urine pH 7.0 Ur Specific Margie 1.025 Urine Protein 30 H Urine Ketones Negative Urine Blood Trace-intact H Urine Nitrite Negative Urine Bilirubin Negative Urine Urobilinogen 4.0 H Ur Leukocyte Esterase Moderate H Urine RBC 5-10 H Urine WBC >50 H Ur Epithelial Cells Few Urine Crystals Negative Urine Bacteria Moderate Urine Casts Negative Urine Mucus Negative Ur Culture Indicated? Yes Urine Glucose Negative COVID-19 Source SARS-CoV-2 (PCR) Patient ABO/Rh Antibody Screen Crossmatch 12/07/20 12/07/20 12/07/20 11:58 11:58 11:58 WBC 12.11 H RBC 3.29 L Hgb 9.6 L Hct 31.9 L MCV 97.0 H MCH 29.2 MCHC 30.1 L RDW 19.3 H Plt Count 427 H MPV 9.5 Immature Gran % 0.9 Neutrophils % 83.9 Lymphocytes % 8.0 Monocytes % 4.8 Eosinophils % 2.2 Basophils % 0.2 Nucleated RBC % 0 Absolute Neutrophils 10.16 H Absolute Lymphocytes 0.97 L Absolute Monocytes 0.58 Absolute Eosinophils 0.27 Absolute Basophils 0.02 RBC Morphology Polychromasia Hypochromasia Poikilocytosis Basophilic Stippling Anisocytosis ESR 64 H PT INR APTT D-Dimer > 7500 H VBG Lactate Sodium Potassium Chloride Carbon Dioxide Anion Gap BUN Creatinine Estimated GFR/1.73 m2 Glucose Calcium Magnesium Total Bilirubin AST ALT Alkaline Phosphatase Troponin I C-Reactive Protein NT-Pro-B Natriuret Pep Total Protein Albumin TSH Free T4 Urine Color Urine Clarity Urine pH Ur Specific Margie Urine Protein Urine Ketones Urine Blood Urine Nitrite Urine Bilirubin Urine Urobilinogen Ur Leukocyte Esterase Urine RBC Urine WBC Ur Epithelial Cells Urine Crystals Urine Bacteria Urine Casts Urine Mucus Ur Culture Indicated? Urine Glucose COVID-19 Source SARS-CoV-2 (PCR) Patient ABO/Rh Antibody Screen Crossmatch 12/07/20 12/07/20 12/07/20 11:58 11:58 11:58 WBC RBC Hgb Hct MCV MCH MCHC RDW Plt Count MPV Immature Gran % Neutrophils % Lymphocytes % Monocytes % Eosinophils % Basophils % Nucleated RBC % Absolute Neutrophils Absolute Lymphocytes Absolute Monocytes Absolute Eosinophils Absolute Basophils RBC Morphology Polychromasia Hypochromasia Poikilocytosis Basophilic Stippling Anisocytosis ESR PT 12.5 H INR 1.2 H APTT 30.9 H D-Dimer VBG Lactate Sodium Potassium Chloride Carbon Dioxide Anion Gap BUN Creatinine Estimated GFR/1.73 m2 Glucose Calcium Magnesium Total Bilirubin AST ALT Alkaline Phosphatase Troponin I C-Reactive Protein NT-Pro-B Natriuret Pep 1113 H Total Protein Albumin TSH Free T4 Urine Color Urine Clarity Urine pH Ur Specific Margie Urine Protein Urine Ketones Urine Blood Urine Nitrite Urine Bilirubin Urine Urobilinogen Ur Leukocyte Esterase Urine RBC Urine WBC Ur Epithelial Cells Urine Crystals Urine Bacteria Urine Casts Urine Mucus Ur Culture Indicated? Urine Glucose COVID-19 Source SARS-CoV-2 (PCR) Patient ABO/Rh A Positive Antibody Screen NEGATIVE Crossmatch See Detail 12/07/20 12/07/20 12/08/20 14:05 14:05 05:40 WBC RBC Hgb Hct MCV MCH MCHC RDW Plt Count MPV Immature Gran % Neutrophils % Lymphocytes % Monocytes % Eosinophils % Basophils % Nucleated RBC % Absolute Neutrophils Absolute Lymphocytes Absolute Monocytes Absolute Eosinophils Absolute Basophils RBC Morphology Polychromasia Hypochromasia Poikilocytosis Basophilic Stippling Anisocytosis ESR PT INR APTT D-Dimer VBG Lactate Sodium 136 Potassium 4.0 Chloride 101 Carbon Dioxide 26.9 Anion Gap 8.1 BUN 20 H D Creatinine 1.2 Estimated GFR/1.73 m2 58.86 Glucose 229 H D Calcium 8.1 L Magnesium 1.7 L Total Bilirubin AST ALT Alkaline Phosphatase Troponin I < 0.05 C-Reactive Protein NT-Pro-B Natriuret Pep Total Protein Albumin TSH Free T4 Urine Color Urine Clarity Urine pH Ur Specific Margie Urine Protein Urine Ketones Urine Blood Urine Nitrite Urine Bilirubin Urine Urobilinogen Ur Leukocyte Esterase Urine RBC Urine WBC Ur Epithelial Cells Urine Crystals Urine Bacteria Urine Casts Urine Mucus Ur Culture Indicated? Urine Glucose COVID-19 Source Nasal/Nares SARS-CoV-2 (PCR) Negative Patient ABO/Rh Antibody Screen Crossmatch 12/08/20 12/08/20 12/08/20 05:40 05:40 08:40 WBC 8.00 D RBC 2.48 L Hgb 7.2 L D 7.9 L Hct 23.7 L D 26.1 L MCV 95.6 H MCH 29.0 MCHC 30.4 L RDW 19.1 H Plt Count 355 MPV 9.8 Immature Gran % 0.9 Neutrophils % 54.2 Lymphocytes % 30.8 Monocytes % 10.0 Eosinophils % 3.8 Basophils % 0.3 Nucleated RBC % 0 Absolute Neutrophils 4.34 Absolute Lymphocytes 2.46 Absolute Monocytes 0.80 Absolute Eosinophils 0.30 Absolute Basophils 0.02 RBC Morphology See Below Polychromasia Present Hypochromasia 2+ Poikilocytosis 1+ Basophilic Stippling Present Anisocytosis 2+ ESR PT INR APTT 59.1 H D-Dimer VBG Lactate Sodium Potassium Chloride Carbon Dioxide Anion Gap BUN Creatinine Estimated GFR/1.73 m2 Glucose Calcium Magnesium Total Bilirubin AST ALT Alkaline Phosphatase Troponin I C-Reactive Protein NT-Pro-B Natriuret Pep Total Protein Albumin TSH Free T4 Urine Color Urine Clarity Urine pH Ur Specific Margie Urine Protein Urine Ketones Urine Blood Urine Nitrite Urine Bilirubin Urine Urobilinogen Ur Leukocyte Esterase Urine RBC Urine WBC Ur Epithelial Cells Urine Crystals Urine Bacteria Urine Casts Urine Mucus Ur Culture Indicated? Urine Glucose COVID-19 Source SARS-CoV-2 (PCR) Patient ABO/Rh Antibody Screen Crossmatch
[2020-12-08 10:49] LABS: Reticulocyte 3.4 % (0.5-2.4)
[2020-12-08 11:26] LABS: Ferritin 425 ng/mL (26-388); Folate 12.5 ng/mL (8.6-20.0); Vitamin B12 290 pg/mL (193-986)
[2020-12-08 11:37] LABS: LDH 203 U/L (85-227)
--- NOTE | 2020-12-08 11:53 | DI.RAD_ITS ---
Exam(s) XR PORTABLE CHEST AP EXAM: XR PORTABLE CHEST AP CLINICAL HISTORY: post PICC insertion. TECHNIQUE: 2D digital imaging was performed. COMPARISON: CR,XR XR CHEST 2V PA LATERAL from 12/07/2020 FINDINGS: Cardiomegaly again noted. Mediastinum unchanged The distal tip of the newly placed left PICC line is in satisfactory position in the lower SVC at the SVC RA junction. Lung willis are unchanged from. IMPRESSION: Newly placed PICC line is at the junction of the SVC and RA. DATA REPOSITORY: RADIATION DOSE DELIVERED: All CT scans at this facility use at least one of these dose optimization techniques: automated exposure control; mA and/or kV adjustment per patient size (includes targeted e xams where dose is matched to clinical indication); or iterative reconstruction.
[2020-12-08] MEDS: Normal Saline Flush 10 ML SYR IVP ×2 (12:10→22:06)
[2020-12-08] MEDS: cefTRIAXone 2 GM/50 ML BAG IVPB (12:10)
[2020-12-08 12:36] LABS: Iron 67 ug/dL (65-175); Total Iron Binding Capacity 169 ug/dL (250-450); Transferrin Sat 40 % (20-55)
[2020-12-08] MEDS: Acetaminophen 325 MG TAB 650 MG PO (12:45)
[2020-12-08] MEDS: diphenhydrAMINE 25 MG CAP PO (12:46)
--- NOTE | 2020-12-08 16:03 | INITIAL_ITS ---
- If Service Date Differs Date of service: 12/08/20 Time of Service: 16:03 Care Management Initial Assess REASON FOR HOSPITALIZATION:: CHF, UTI PAST MEDICAL HISTORY/PAST SURGICAL HISTORY:: Adrenal insufficiency. Benign prostatic hyperplasia (07/03/15). Coronary artery disease. Crohns disease. Diabetes mellitus, type II, insulin dependent. DVT (deep venous thrombosis). 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 GERD (gastroesophageal reflux disease). GI bleed. Graves disease. Hyperlipidemia. Hypertension. Hypothyroidism. Obstructive sleep apnea. Peripheral neuropathy. Rheumatoid arthritis. Sensorineural hearing loss, bilateral (01/28/15). Stroke. 2018. Traumatic compression fracture of T12 thoracic vertebra. Vitamin B12 deficiency. Vitamin B6 deficiency. Vitamin D deficiency. Graves' eye disease. s/p surgery. H/O lumbosacral spine surgery. Prosthesis, Penile implant PREVIOUS FUNCTIONAL STATUS/SOCIAL/FAMILY SUPPORTS:: Miguel resides with his , Nohemi, in [place], [place]. 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 His works during the day, Tuesday through Tuesday, and patient is left alone at home. 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 CURRENT FUNCTIONAL STATUS:: Miguel remains acute-CM was unable to connect with him today due to multiple medical interventions but continues to follow. ADVANCE DIRECTIVES:: Nohemi as agent. Bette as alternate. Has patient been provided with info about the portal/API?: Yes Did the patient sign up for the portal?: Yes (Previously) CODE STATUS:: Full Code INSURANCE COVERAGE / FINANCIAL ISSUES:: Medicare. AARP. Medicaid CURRENT HOME/COMMUNITY SERVICES/EQUIPMENT:: CPAP/BIPAP? Electric scooter, cane, Electric wheelchair, FWW, shower chair, in addition to Home Health nursing, PT, OT, and CUTTER APPRENTICE HAND. PRIMARY CARE PHYSICIAN:: Korin Florian MD POTENTIAL DISCHARGE NEEDS:: Increased services at home vs SNF. PATIENT/FAMILY EDUCATION NEEDS:: Review of discharge instructions, limitations, including Ask Me Three. ANTICIPATED BARRIERS TO DISCHARGE:: None identified at this time. TRANSPORTATION:: To be determined by disposition and mobility. PLAN:: Miguel will continue to be closely monitored and treated at this time. CM continues to follow.
[2020-12-08] MEDS: Furosemide 40 MG TAB PO (16:46)
[2020-12-08 19:53] LABS: HCT 26.6 % (40.0-50.0); HGB 8.2 g/dL (13.5-17.5)
[2020-12-08] MEDS: Insulin Aspart 300 UNITS/3 ML PEN SC (22:02)
[2020-12-08] MEDS: rOPINIRole 0.5 MG TAB 1 MG PO (22:03)
[2020-12-08] MEDS: Rosuvastatin 10 MG TAB 40 MG PO (22:04)
[2020-12-08] MEDS: Mirtazapine 15 MG TAB 7.5 MG PO (22:05)
--- NOTE | 2020-12-09 03:20 | NUR.NOTE ---
Rounded on Heparin pump with KWESI Jiménez at beginning of shift at 7pm and rounded with Veronica Cage RN on Heparin pump at end of shift rate is 17.5mls/hr. Nursing Note:
[2020-12-09] MEDS: Levothyroxine 175 MCG TAB PO (06:20)
[2020-12-09 07:07] LABS: Abs Immature Grans 0.09 10^3/uL (0.0-0.06); Absolute Basophil Count 0.04 10^3/uL (0.0-0.2); Absolute Eosinophil Count 0.43 10^3/uL (0.0-0.7); Absolute Lymphocyte Count 1.81 10^3/uL (1.2-3.4); Absolute Monocyte Count 0.65 10^3/uL (0.1-0.8); Absolute Neutrophil Count 4.87 10^3/uL (1.2-6.7); Basophils % 0.5; Eosinophils % 5.4; HCT 29.9 % (40.0-50.0); HGB 9.1 g/dL (13.5-17.5); Immature Grans % 1.1; Lymphocytes % 22.9; MCH 28.7 pg (27.0-33.0); MCHC 30.4 % (32.0-36.0); MCV 94.3 fL (80-95); MPV 10.1 fL (8.0-11.0); Monocytes % 8.2; Neutrophils % 61.9; Nucleated RBC 0 %; Platelet Count 407 10^3/uL (130-400); RBC 3.17 10^6/uL (4.36-5.78); RDW 19.2 % (11.8-14.1); RDW-SD 66.3 fL; WBC 7.89 10^3/uL (4.4-10.8)
[2020-12-09 07:23] LABS: PTT Activated 59.6 sec (21.0-27.5)
[2020-12-09 07:24] LABS: Anion Gap 6.5 mmol/L (3-11); BUN 20 mg/dL (7-18); CO2 29.5 mmol/L (21.0-32.0); CREATININE 1.3 mg/dL (0.70-1.30); Calcium 9.3 mg/dL (8.5-10.1); Chloride 103 mmol/L (98-107); Estimated GFR 53.67 (mL/min/1.73m2); Glucose 248 mg/dL (74-106); NT-proBNP 455 pg/mL (<300); Potassium 4.3 mmol/L (3.5-5.1); Sodium 139 mmol/L (136-145)
[2020-12-09 07:50] VITALS: BP 157/86; PULSE 65; RESP 19; TEMP 36.2; O2SAT 99
[2020-12-09] MEDS: Diclofenac 1% Gel 100 GM TUBE TP (08:49)
[2020-12-09] MEDS: Normal Saline 500 ML 30 ML IV (08:49)
[2020-12-09] MEDS: cefTRIAXone 2 GM/50 ML BAG IVPB (08:49)
[2020-12-09] MEDS: Insulin Aspart 300 UNITS/3 ML PEN SC ×3 (08:50→17:07)
[2020-12-09] MEDS: Fluticasone NASAL SPRAY 16 GM BTL NS (08:50)
[2020-12-09] MEDS: Irbesartan 75 MG TAB 300 MG PO (08:51)
[2020-12-09] MEDS: methylPREDNISolone 4 MG TAB PO ×2 (08:51→13:45)
[2020-12-09] MEDS: Liothyronine 5 MCG TAB PO (08:51)
[2020-12-09] MEDS: Folic Acid 1 MG TAB PO (08:51)
[2020-12-09] MEDS: buPROPion-XL 150 MG TABCR PO (08:51)
[2020-12-09] MEDS: Sucralfate 1 GM TAB PO ×3 (08:52→16:08)
[2020-12-09] MEDS: Pantoprazole 40 MG TABCR PO (08:52)
[2020-12-09] MEDS: Furosemide 40 MG TAB PO ×2 (08:52→16:08)
[2020-12-09] MEDS: Gabapentin 400 MG CAP PO (08:52)
[2020-12-09] MEDS: Finasteride 5 MG TAB PO (08:52)
[2020-12-09] MEDS: Spironolactone 50 MG TAB PO (08:55)
[2020-12-09] MEDS: Sertraline 50 MG TAB 200 MG PO (08:56)
[2020-12-09] MEDS: Tamsulosin 0.4 MG CAPCR PO (08:56)
--- NOTE | 2020-12-09 12:50 | W.INDIABCONS ---
Date of service: 12/09/20 Time of Service: 12:50 Diabetes Inpatient Consult DESCRIPTION/ASSESSMENT: 75 year old male admitted with UTI with sepsis and AMS. PMH: COPD, HTN, IDDM, CHF. BMI indicates overweight status. Attempted to meet with Miguel yesterday and today but not able to converse as difficult to arouse. Most recent A1C: 7.1% (08/05/30) indicating well controlled Dm with current home Dm meds (Levemir 60 u AM, 65 u PM, victoza 1.8 mg qd, metformin 1000 mg BID, januvia 100 mg qd. Following Dm diet with adequate intake to meet macronutrient/fluid needs. INTERVENTION: unable to provide DM education. PLAN: Will monitor po intake, labs and will attempt to follow up and assess educational needs before discharge. Time Spent in Nutritional Counseling and Treatment: 0
--- NOTE | 2020-12-09 14:37 | CHAPLAIN ---
Miguel was in bed when I visited. He was very friendly and easily engaged in a conversation. Hes said he prays daily and believes that by telling his problems to God, that God helps him solve the problems. 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 He is upbeat and said he is feeling better. He's in touch with family by phone.
--- NOTE | 2020-12-09 15:05 | W.PM.DS.N ---
Date of service: 12/09/20 Time of Service: 15:05 DS: Diagnosis Discharge Diagnosis (1) Acute on chronic clinical systolic heart failure: Status: Acute (2) Left leg DVT: Status: Acute (3) UTI (urinary tract infection): Status: Acute (4) Diabetes mellitus, type II, insulin dependent: Status: Acute (5) Hypothyroidism: Status: Chronic (6) Rheumatoid arthritis: Status: Chronic (7) Crohns disease: Status: Chronic Discharge Plan Disposition Patient Disposition: HOME Condition: Fair Discharge Details Reason For Visit: CHF, UTI Admit Date/Time: 12/07/20 15:04 Admit Provider: Tanmay Frazier Attending Provider: Tanmay Frazier [facility]: 75-year-old male with a past medical history of coronary artery disease with previous myocardial infarction x5 and stents x7 who is chronically anticoagulated with Xarelto due to a DVT in his left leg as well as previous arm DVT. 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 Denies any chest pain or pressure but admits to exertional dyspnea. He denies any recent weight gain. In the emergency department evaluation revealed stable vital signs with a BP 143/90 respiratory rate of 20 pulse 88 and pulse oximetry 97% on room air. He is afebrile. Work-up included routine labs EKG and subsequent CT of the chest per PE protocol. CBC was remarkable for white count of 12,000 and anemia with hemoglobin 9.6 g with macrocytic indices. Platelet count 4 27,000. His hemoglobin 9.6 appears to be stable over the last several readings. CMP was unremarkable. He has normal BUN and creatinine at 13 and 1.0. Normal transaminases. Troponin I level was normal at less than 0.05x2 sets. CRP is elevated at 14.8 proBNP is elevated at 1100 his TSH is high at 43.3 with a free T4 of 0.8, coagulation studies showed elevated INR of 1.2 prothrombin time 12.5 activated partial thromboplastin time of 30.9 and a D-dimer greater than 7500. Urinalysis is remarkable for moderate leukocyte Estrace negative for nitrites trace of blood negative ketones 30 mg/dL protein greater than 50 white cells and 5-10 red cells with moderate bacteria. His acute asymmetrical left leg swelling along with elevated D-dimer raise suspicion for a PE and DVT. CTA chest with contrast showed no evidence of pulmonary embolic disease but he has chronic fibrotic changes noted in his lungs. No pleural effusions were seen. Chest x-ray had been done and showed cardiomegaly and pulmonary fibrosis. EKG demonstrated sinus rhythm at a rate of 90 bpm he has inferior Q waves consistent with old inferior infarct. He has prominent R waves in the anterior precordial leads Treatment in the ER included Levaquin 750 mg IV for UTI and he was given furosemide 40 mg IV push. Patient states since receiving the Lasix this afternoon his left leg edema has improved but not resolved. His dyspnea is improved. Patient is admitted for treatment of presumptive left leg DVT as well as UTI and acute on chronic heart failure. When I reviewed his medications I asked him if he has ever missed any medications. He says that he gets his medicines and a pill pack sent to him by [facility] in order to minimize risk of missing any medications but he admits that over the last couple weeks he may have missed a few doses of his Xarelto. A heparin drip was initiated while making decision on further long-term anticoagulation. In the event this was a failure of Xarelto, he was prescribed Pradaxa (though compliance may have been the inciting factor for developing the DVT). He will first, need parental AC for 5 days before starting the Pradaxa. He received a day of IV heparin. He was then started on Lovenox 100mg SC BID to complete the 5 day course. The swelling in his left leg improved. Echocardiogram showed global left ventricular hypokinesis with an EF of 48%. Urine cx grew Klebsiella pneumoniae; sensitive to Levaquin. Prescribed Levaquin 750mg po for 5 days. Pt to start Pradaxa the day after her last Lovenox injection. F/U with PCP in 1-2 weeks. Home Meds and New Rx's Prescriptions: New Pradaxa 150 mg capsule 150 mg PO BID Qty: 60 RF: 0 enoxaparin [Lovenox] 100 mg/mL syringe 100 mg subcut Q12H Qty: 10 RF: 0 levofloxacin 750 mg Tablet 750 mg PO QAM Qty: 5 RF: 0 Continued finasteride 5 MG tablet 5 mg PO DAILY Qty: 90 RF: 3 nitroglycerin [Nitrostat] 0.4 MG tablet, sublingual 0.4 mg Buccal PRN PRNRF: 0 pyridoxine (vitamin B6) [Vitamin B-6] 50 MG tablet 50 mg PO DAILY RF: 0 fluticasone propionate [Flonase Allergy Relief] 9.9 ML spray,suspension 9.9 ml NS BID PRNRF: 0 rosuvastatin [Crestor] 40 MG tablet 40 mg PO HS RF: 0 bupropion HCl 150 mg tablet extended release 24 hr 150 mg PO QAM RF: 0 tamsulosin [Flomax] 0.4 mg capsule 0.4 mg PO DAILY RF: 0 pantoprazole [Protonix] 40 mg tablet,delayed release (DR/EC) 40 mg PO DAILY Qty: 30 RF: 12 folic acid 1 MG tablet 1 mg PO QAM RF: 0 liothyronine [Cytomel] 5 mcg Tablet 5 mcg PO DAILY RF: 0 Saccharomyces boulardii 250 mg Capsule 250 mg PO DAILY RF: 0 cholecalciferol (vitamin D3) [Vitamin D3] 2,000 unit Capsule 2,000 unit PO DAILY RF: 0 leflunomide 20 mg Tablet 20 mg PO DAILY RF: 0 methylprednisolone 4 MG tablet 4 mg PO DAILY RF: 0 Levemir FlexTouch U-100 Insuln 100 unit/mL (3 mL) insulin pen See Rx Instructions .ROUTE .COMPLEX RF: 0 sertraline 100 mg tablet 200 mg PO DAILY RF: 0 albuterol sulfate [ProAir HFA] 90 mcg/actuation Hfa Aerosol Inhaler 2 puff INHALATION Q4H PRN PRNRF: 0 irbesartan 300 mg Tablet 300 mg PO DAILY RF: 0 Entyvio 300 mg Recon Soln 300 mg IV DIRECTED RF: 0 spironolactone 50 mg Tablet 50 mg PO DAILY RF: 0 oxycodone 10 mg tablet 10 mg PO TID PRNRF: 0 ropinirole 1 mg tablet 1 mg PO QHS RF: 0 insulin lispro [Humalog KwikPen Insulin] 100 unit/mL insulin pen SUBCUT RF: 0 Restasis 0.05 % dropperette 1 drp ophthalmic (eye) BID RF: 0 mirtazapine 7.5 mg tablet 7.5 mg PO QHS RF: 0 Pentasa 500 mg capsule, extended release 1,000 mg PO TID RF: 0 buprenorphine 15 mcg/hour patch weekly 1 patch transdermal QWEEK RF: 0 levothyroxine 150 mcg tablet 175 mcg PO DAILY@0600 RF: 0 alendronate 70 mg tablet 70 mg PO QWEEK RF: 0 gabapentin 400 mg capsule 400 mg PO BID RF: 0 Rasuvo (PF) 20 mg/0.4 mL auto-injector 20 mg SUBCUT Q7D RF: 0 Discontinued Xarelto 20 mg tablet 20 mg PO DAILY RF: 0 Discharge Instructions Instructions: Deep Vein Thrombosis (DC) Stand Alone Forms: Nursing Discharge Form Referrals: Celestine Perkins [Primary Care Provider] - 12/22/20 10:00 am Activity:: Activity as Tolerated Equipment/Supplies:: No Equipment Needed Diet:: Heart Healthy Discharge Orders Discharge Orders: Discharge Order (Routine); Ordered 12/09/20 Ordered By: Joel Ro Discharge Data Discharge Date/Time-TO BE ENTERED AT DEPARTURE: 12/09/20 17:26 DS: Summary Time Spent with Patient providing and/or coordinating discharge services: Greater than 30 minutes Status at Discharge Functional status at discharge: wheelchair bound Overall status at discharge: patient is progressing back to baseline Mental Status: mental status grossly normal Speech and Movement: speech clear Mood: congruent mood Affect: normal affect Exam Psych Mental Status: mental status grossly normal Speech and Movement: speech clear Mood: congruent mood Affect: normal affect DS: Data Vitals/I&O Vitals and I&O: Vital Signs Temperature 36.2 C L 12/09/20 07:50 Temperature Source Temporal Artery Scan 12/09/20 07:50 Pulse 65 12/09/20 07:50 Pulse Rhythm Regular 12/09/20 07:17 Pulse 98 H 12/07/20 14:10 Respiratory Rate 19 12/09/20 07:50 Respiratory Effort 12/09/20 07:17 Respiratory Depth Normal 12/09/20 07:17 Respiratory Pattern Normal 12/09/20 07:17 Blood Pressure 157/86 H 12/09/20 07:50 Blood Pressure Mean 103 12/07/20 14:08 Blood Pressure Position Sitting 12/07/20 10:05 Pulse Oximetry 99 12/09/20 07:50 Oxygen Delivery Method Room Air 12/09/20 07:50 Oxygen Flow Rate 0 12/09/20 07:50 Pain Level 0 12/09/20 07:50 Intake & Output 12/08/20 12/09/20 12/09/20 23:59 11:59 23:59 Intake Total 1670.917 / 1971.167 587.083 / 587.083 Output Total 1800 / 3950 775 / 775 Balance -129.083 / -1978.833 -187.917 / -187.917 Intake: IV 290.917 / 351.167 347.083 / 347.083 Oral 1080 / 1320 240 / 240 Blood Product 300 / 300 Rbc Leuko Reduced Unit 300 / 300 [id number] Output: Urine 1800 / 3950 775 / 775 Other: Urine Color Yellow Yellow Urine Appearance Clear Clear Urine Odor Normal Normal Stool Occult Blood Negative Stool Size Moderate Stool Characteristics Soft Brown Voiding Methods Urinal Urinal Data Completed and Pending Labs on day of discharge: Labs from last 24 hours 12/09/20 12/09/20 12/09/20 06:40 06:40 06:40 WBC 7.89 RBC 3.17 L Hgb 9.1 L Hct 29.9 L MCV 94.3 MCH 28.7 MCHC 30.4 L RDW 19.2 H Plt Count 407 H MPV 10.1 Immature Gran % 1.1 Neutrophils % 61.9 Lymphocytes % 22.9 Monocytes % 8.2 Eosinophils % 5.4 Basophils % 0.5 Nucleated RBC % 0 Absolute Neutrophils 4.87 Absolute Lymphocytes 1.81 Absolute Monocytes 0.65 Absolute Eosinophils 0.43 Absolute Basophils 0.04 APTT 59.6 H Sodium 139 Potassium 4.3 Chloride 103 Carbon Dioxide 29.5 Anion Gap 6.5 BUN 20 H Creatinine 1.3 Estimated GFR/1.73 m2 53.67 Glucose 248 H Calcium 9.3 Magnesium 2.0 NT-Pro-B Natriuret Pep 455 H Crossmatch 12/08/20 12/07/20 19:44 11:58 WBC RBC Hgb 8.2 L Hct 26.6 L MCV MCH MCHC RDW Plt Count MPV Immature Gran % Neutrophils % Lymphocytes % Monocytes % Eosinophils % Basophils % Nucleated RBC % Absolute Neutrophils Absolute Lymphocytes Absolute Monocytes Absolute Eosinophils Absolute Basophils APTT Sodium Potassium Chloride Carbon Dioxide Anion Gap BUN Creatinine Estimated GFR/1.73 m2 Glucose Calcium Magnesium NT-Pro-B Natriuret Pep Crossmatch See Detail [facility] Medical History Adrenal insufficiency Benign prostatic hyperplasia (07/03/15) Coronary artery disease Crohns disease Diabetes mellitus, type II, insulin dependent DVT (deep venous thrombosis) Erectile dysfunction of organic origin (07/03/15) GERD (gastroesophageal reflux disease) GI bleed Graves disease Hyperlipidemia Hypertension Hypothyroidism Obstructive sleep apnea Peripheral neuropathy Rheumatoid arthritis Sensorineural hearing loss, bilateral (01/28/15) Stroke 2018 Traumatic compression fracture of T12 thoracic vertebra Vitamin B12 deficiency Vitamin B6 deficiency Vitamin D deficiency Surgical History Graves' eye disease s/p surgery H/O lumbosacral spine surgery Prosthesis, Penile implant Family History Father Asthma Sister Asthma Social History Smoking/Tobacco Use Status: Former Tobacco Use Smoking risk assessment performed?: Yes Alcohol Intake: former Drug use: Occasionally Substance use type: does not use and marijuana Details: gummy bears 3 times a week for back pain Household members: spouse Number of Children: 5 current occupation: Retired [employer] What is your relationship status?: Panel score (0-1 are the most socially isolated patients): 1 Do you feel safe at home: Yes Do you feel safe in your relationship?: Yes
--- NOTE | 2020-12-09 15:13 | CMDISCH_ITS ---
- If Service Date Differs Date of service: 12/09/20 Time of Service: 15:13 LACE Index Scoring Tool - Questions: Length of Stay (in days): 2 Acuity (Admit via E.D.?): Yes Comorbidities: Diabetes w/o Complication E.D. Visits: 4 - Answers: Total Score: 10 Risk of Readmission: High Risk Care Management Discharge Reason for Hospitalization: CHF, UTI Discharge Plan: Miguel will return home when ready per MD. New prescription coordinated; a meds supplied upon discharge as new anticoagulant unavailable at [facility] until tomorrow. Miguel will resume home health PT-CM notfied [facility] of discharge plan. He will transport via private vehicle with his , Nohemi, follow up with his PCP and plan of care as prescribed. Patient/Family Education Needs: Review discharge instructions, discuss Ask Me Three. Services Needed at Discharge: Home Health Care Services (Resumption PT )
[2020-12-09 15:53] VITALS: BP 118/71; PULSE 77; RESP 17; TEMP 37; O2SAT 96
[2020-12-09] MEDS: Enoxaparin 100 MG/ML SYR SC (16:09)
[2020-12-09 16:51] LABS: Fructosamine 356 mcmol/L (200 - 285)
[2020-12-09] MEDS: Bacitracin 1 PACKET (16:55)
== END 2020-12-09 17:26 | disposition home or self-care (01) | DRG 292 ==
LOC: ER 15:22 → MS 18:20
PROVIDERS: Admitting Provider Internal Medicine; Emergency Provider Physician Assistant; PCP Family Medicine; Visit Provider Internal Medicine
DX: I11.0 Hypertensive heart disease with heart failure (principal); I82.412 Acute embolism and thrombosis of left femoral vein; E27.40 Unspecified adrenocortical insufficiency; N30.01 Acute cystitis with hematuria; K50.90 Crohn's disease, unspecified, without complications; I50.23 Acute on chronic systolic (congestive) heart failure; N40.0 Benign prostatic hyperplasia without lower urinary tract symptoms; I25.10 Atherosclerotic heart disease of native coronary artery without angina pectoris; Z79.4 Long term (current) use of insulin; K21.9 Gastro-esophageal reflux disease without esophagitis; E89.0 Postprocedural hypothyroidism; G47.33 Obstructive sleep apnea (adult) (pediatric); E11.42 Type 2 diabetes mellitus with diabetic polyneuropathy; M06.9 Rheumatoid arthritis, unspecified; H90.3 Sensorineural hearing loss, bilateral; Z86.73 Personal history of transient ischemic attack (TIA), and cerebral infarction without residual deficits; E53.8 Deficiency of other specified B group vitamins; E55.9 Vitamin D deficiency, unspecified; Z79.01 Long term (current) use of anticoagulants; Z20.822 Contact with and (suspected) exposure to COVID-19
CPT/HCPCS: 36415; 36573; 71275; 80048; 80053; 85652; 86850; 86900; 86901; 86920; 87077; 87635; 93005; 93306; 96365; 96375; 99285; 71045; 71046; 81003; 81015; 82607; 82728; 82746; 82985; 83540; 83550; 83605; 83615; 83735; 83880; 84439; 84443; 84484; 85014; 85018; 85025; 85045; 85379; 85610; 85730; 86140; 87086; 87186; 93010; 93971; 99223; 99232; 99239; J1650; J1940; J1956; J3490; J7509; P9016

== ENCOUNTER 2020-12-24 02:47 | Outpatient (CLI) | payer MEDICARE, MEDICAID, SELFPAY ==
[2020-12-24 14:58] LABS: Anion Gap 5.9 mmol/L (3-11); BUN 18 mg/dL (7-18); CO2 30.1 mmol/L (21.0-32.0); Calcium 9.5 mg/dL (8.5-10.1); Chloride 105 mmol/L (98-107); Glucose 278 mg/dL (74-106); Potassium 3.7 mmol/L (3.5-5.1); Sodium 141 mmol/L (136-145)
[2020-12-24 15:04] LABS: HCT 33.3 % (40.0-50.0); MCH 29.2 pg (27.0-33.0); MCV 97.4 fL (80-95); MPV 10.5 fL (8.0-11.0); Platelet Count 308 10^3/uL (130-400); RBC 3.42 10^6/uL (4.36-5.78); RDW 19.5 % (11.8-14.1); RDW-SD 69.2 fL; WBC 11.53 10^3/uL (4.4-10.8)
[2020-12-24 15:05] LABS: ESR 34 mm/hr (0-20)
[2020-12-24 15:10] LABS: Bilirubin Negative (Negative); Blood Negative (Negative); Clarity Clear (Clear); Glucose 100 mg/dL (Negative); Ketones Negative (Negative); Leukocyte Esterase Negative (Negative); Nitrite Negative (Negative); Specific Gravity 1.025 (1.005-1.025); Urobilinogen 0.2 EU/dL (Up TO 0.2)
[2020-12-24 16:05] LABS: C-Reactive Protein 1.46 mg/dL (0.0-0.3)
== END 2020-12-24 02:48 | disposition home or self-care (01) ==
PROVIDERS: Internal Medicine Rheumatology; PCP Family Medicine; Visit Provider Family Medicine
DX: D64.9 Anemia, unspecified (principal); I10 Essential (primary) hypertension; R79.82 Elevated C-reactive protein (CRP)
CPT/HCPCS: 36415; 80048; 85027; 85652; 81003; 86140

== ENCOUNTER 2020-12-25 11:32 | Emergency (ER) | payer MEDICARE, MEDICAID, SELFPAY ==
[2020-12-25] VITALS (27 sets, daily range): BP systolic 160–192; BP diastolic 94–112; PULSE 77–96; RESP 13–24; TEMP 36.6; O2SAT 92–98
--- NOTE | 2020-12-25 12:00 | DI.US_ITS ---
Exam(s) US SCROTUM EXAM: US SCROTUM CLINICAL HISTORY: R testicle pain TECHNIQUE: Ultrasound of the testes performed using grayscale, color, and Doppler imaging. COMPARISON: US US LOWER EXTREMITY VENOUS LT from 12/08/2020 FINDINGS: RIGHT HEMISCROTUM: Right testicle is surgically absent and there is a right testicular implant noted in the right hemisc rotum. There does not appear to be abnormal fluid collection in the right hemiscrotum. LEFT HEMISCROTUM: The left testicle exhibits normal size and echo architecture with no evidence of intratesticular mass . Vascular flow is demonstrated within the left testicle, including arterial waveforms. There is an 8 x 9 millimeter cyst-spermatocele in the left epididymal head. Small hydrocele. No varicocele. IMPRESSION: 1. Right testicular implant. No surrounding fluid collection. 2. No mass nor torsion in the opposite-left testicle. 3. 8 x 9 millimeter left epididymal head cyst noted. DATA REPOSITORY:
--- NOTE | 2020-12-25 12:37 | W.ED.GENAD ---
Discharge Plan Disposition Patient Disposition: HOME Condition: Stable Discharge Details Clinical Impression: Suprapubic pain, Hematuria Primary Care Provider: Celestine Perkins ED Provider: Miley Barry Home Meds and New Rx's Prescriptions: New levofloxacin 750 mg tablet 750 mg PO DAILY 5 Days Qty: 5 RF: 0 No Action finasteride 5 MG tablet 5 mg PO DAILY Qty: 90 RF: 3 nitroglycerin [Nitrostat] 0.4 MG tablet, sublingual 0.4 mg Buccal PRN PRNRF: 0 pyridoxine (vitamin B6) [Vitamin B-6] 50 MG tablet 50 mg PO DAILY RF: 0 fluticasone propionate [Flonase Allergy Relief] 9.9 ML spray,suspension 9.9 ml NS BID PRNRF: 0 rosuvastatin [Crestor] 40 MG tablet 40 mg PO HS RF: 0 bupropion HCl 150 mg tablet extended release 24 hr 150 mg PO QAM RF: 0 tamsulosin [Flomax] 0.4 mg capsule 0.4 mg PO DAILY RF: 0 pantoprazole [Protonix] 40 mg tablet,delayed release (DR/EC) 40 mg PO DAILY Qty: 30 RF: 12 folic acid 1 MG tablet 1 mg PO QAM RF: 0 liothyronine [Cytomel] 5 mcg Tablet 5 mcg PO DAILY RF: 0 Saccharomyces boulardii 250 mg Capsule 250 mg PO DAILY RF: 0 cholecalciferol (vitamin D3) [Vitamin D3] 2,000 unit Capsule 2,000 unit PO DAILY RF: 0 leflunomide 20 mg Tablet 20 mg PO DAILY RF: 0 methylprednisolone 4 MG tablet 4 mg PO DAILY RF: 0 Levemir FlexTouch U-100 Insuln 100 unit/mL (3 mL) insulin pen See Rx Instructions .ROUTE .COMPLEX RF: 0 ropinirole 1 mg tablet 1 mg PO HS RF: 0 ipratropium-albuterol 0.5 mg-3 mg(2.5 mg base)/3 mL Solution For Nebulization 3 ml INHALATION Q6H PRN PRNRF: 0 albuterol sulfate 2.5 mg /3 mL (0.083 %) Solution For Nebulization 2.5 mg inhalation Q2H PRN PRNRF: 0 Saccharomyces boulardii [Digest Probiotic (S.boulardii)] 250 mg Capsule 250 mg PO DAILY RF: 0 buprenorphine [Butrans] 15 mcg/hour Patch Weekly See Rx Instructions .ROUTE .COMPLEX RF: 0 methotrexate (PF) 15 mg/0.6 mL Syringe See Rx Instructions .ROUTE .COMPLEX RF: 0 sertraline 100 mg tablet 200 mg PO DAILY RF: 0 albuterol sulfate [ProAir HFA] 90 mcg/actuation Hfa Aerosol Inhaler 2 puff INHALATION Q4H PRN PRNRF: 0 irbesartan 300 mg Tablet 300 mg PO DAILY RF: 0 Entyvio 300 mg Recon Soln 300 mg IV DIRECTED RF: 0 spironolactone 50 mg Tablet 50 mg PO DAILY RF: 0 oxycodone 10 mg tablet 10 mg PO TID PRNRF: 0 ropinirole 1 mg tablet 1 mg PO QHS RF: 0 insulin lispro [Humalog KwikPen Insulin] 100 unit/mL insulin pen SUBCUT RF: 0 Restasis 0.05 % dropperette 1 drp ophthalmic (eye) BID RF: 0 mirtazapine 7.5 mg tablet 7.5 mg PO QHS RF: 0 Pentasa 500 mg capsule, extended release 1,000 mg PO TID RF: 0 buprenorphine 15 mcg/hour patch weekly 1 patch transdermal QWEEK RF: 0 levothyroxine 150 mcg tablet 175 mcg PO DAILY@0600 RF: 0 alendronate 70 mg tablet 70 mg PO QWEEK RF: 0 gabapentin 400 mg capsule 400 mg PO BID RF: 0 Rasuvo (PF) 20 mg/0.4 mL auto-injector 20 mg SUBCUT Q7D RF: 0 Pradaxa 150 mg capsule 150 mg PO BID Qty: 60 RF: 0 enoxaparin [Lovenox] 100 mg/mL syringe 100 mg subcut Q12H Qty: 10 RF: 0 levofloxacin 750 mg Tablet 750 mg PO QAM Qty: 5 RF: 0 Discharge Instructions Instructions: Hematuria (ED), Abdominal Pain (ED) Additional Instructions: Please take another 5 days of the antibiotic levofloxacin as directed. 1 tablet daily. Please call and make a follow-up appointment with your urologist Dr. Valencia at [facility]. Please return to the ER or be seen sooner if you have any worsening abdominal pain, fever, vomiting or any concerns. Follow up with primary care provider in 3-5 days. Return to ED sooner if any worsening or concerns. Increase oral fluids. Please take Tylenol or Ibuprofen with food every 4-6 hours as needed for pain and swelling. Referrals: Celestine Perkins [Primary Care Provider] - Discharge Data Discharge Date/Time-TO BE ENTERED AT DEPARTURE: 12/25/20 17:35 Medical Decision Making <KAYLYN Sampson - Last Filed: 12/25/20 16:52> 75-year-old gentleman, multiple comorbidities, penis prosthesis, right testicle implant, presents for suprapubic pain, painful urination, frequency urination, pain radiating into his groin. Clinically he appears uncomfortable but nontoxic. Differential includes but not exclusive to UTI, pyelonephritis, renal stone, epididymitis, testicular torsion, etc. Plan is to obtain IV access, routine laboratory values, urinalysis, ultrasound of the scrotum and testicles as well as a renal colic CT. Patient will be given 1 L of IV fluid and 2 mg IV morphine. No improvement with 2 mg IV morphine, a second dose given. Laboratory values reveal mild nonspecific leukocytosis and hematuria. No nitrites or leuk esterase. Certainly could be a hemorrhagic cystitis awaiting ultrasound and CT imaging. Ultrasound unremarkable for obvious emergent process. CT imaging revealed nonspecific streaking around the bladder, perineum, but no fluid collection. Given the CT findings, urology was attempted to be consulted. Unfortunately we do not have urology consultation today at our facility, images were pushed to [facility] and consultation requested. In the meantime patient reports pain is returning, given 200 p.o. Pyridium and 0.5 IV Dilaudid Medical Records Medical records reviewed: Yes I reviewed the patient's medical records. Imaging Data Radiologic Study: Attestation: I personally reviewed and interpreted this imaging study as follows: Radiologist's impression: Exam(s) CT RENAL COLIC WO EXAM: CT RENAL COLIC WO CLINICAL HISTORY: hematuria, suprapubic/groin pain. TECHNIQUE: Imaging Protocol: Axial computed tomography images with coronal and sagittal reformatted images were created and reviewed CONTRAST MATERIAL: Intravenous: none Oral: None COMPARISON: CT CT CHEST PE CTA from 12/07/2020 FINDINGS: VISUALIZED LUNG BASES: COPD and interstitial fibrotic disease again noted. No pleural effusions.. Cardiomegaly again noted. No pericardial effusion. ABDOMEN: There is no ascites. LIVER: There are no obvious focal hepatic lesions evident of this noninfused study. GALLBLADDER/BILIARY: No obvious gallbladder pathology. CBD is not dilated. PANCREAS: Pancreas is atrophic at the level of body and tail and there are multiple punctate parenchymal calcifications in the pancreas as well as dilatation of the duct of the pancreas in the body and tail, the duct measuring 6 millimeters. There is also a larger 7 x 6 millimeter calcification in the pancreas at the junction of the body-neck region and the duct is dilated proximal to this. The duct is not dilated in the pancreatic head nor within the uncinate process. No obvious mass. SPLEEN: Spleen is not enlarged. No obvious intrasplenic lesions. ADRENALS: There are no significant adrenal masses. KIDNEYS:There is a 1.7 cm cyst in the posterior cortex of the left kidney. No solid masses. No calculi. There is a punctate 1 millimeter nonobstructive calculus in the opposite-right kidney. No hydronephrosis.. ABDOMINAL AORTA: Abdominal aorta is not enlarged. LYMPH NODES: There is no retroperitoneal nor paraaortic adenopathy. ABDOMINAL WALL: No evidence of significant anterior abdominal wall hernia. GI: There diverticuli in the descending-left colon and distal 3rd of the transverse colon but there is no evidence of acute diverticulitis.. The appendix is slightly thickened, measuring 12 millimeters. There is minimal if any significant surrounding streaking and there is some no appendicolith. PELVIS: LYMPH NODES: There is no intrapelvic nor inguinal adenopathy. Prostate gland size is minimally prominent. Urinary bladder is not distended but there is abundant streaking around the urinary bladder evident as well as streaking in the perineum. There is also right-sided bladder diverticulum measuring 2 by 2 cm. To the right of the urinary bladder is a reservoir measuring 5 by 4 cm and this extends with through the right inguinal canal into the right hemiscrotum. 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 OSSEOUS: T12 compression fracture which contains vertebroplasty cement. No compression fractures in the lumbar spine. No osseous lesions evident IMPRESSION: 1. The main finding here is abundant abnormal streaking around the bladder and perineum in this patient who has a penile implant with right perivesicular reservoir. 2. The appendix appears thickened (12 millimeters) but does not exhibit surrounding streaking nor does not contain an appendicolith. Terminal ileum appears unremarkable. The low pelvic streaking is relatively symmetrical and is doubtful related to the thickened appendix. 3. The pancreatic body and tail are atrophic, these being proximal to a large calcification which is most probably obstructing the pancreatic duct. There is no evidence of acute pancreatitis.. Findings discussed with ER provider following completion of the study 12/25/2020. Radiologic Study #2: Attestation: I personally reviewed and interpreted this imaging study as follows: Imaging: Ultrasound Radiologist's impression: Exam(s) US SCROTUM EXAM: US SCROTUM CLINICAL HISTORY: R testicle pain TECHNIQUE: Ultrasound of the testes performed using grayscale, color, and Doppler imaging. COMPARISON: US US LOWER EXTREMITY VENOUS LT from 12/08/2020 FINDINGS: RIGHT HEMISCROTUM: Right testicle is surgically absent and there is a right testicular implant noted in the right hemiscrotum. There does not appear to be abnormal fluid collection in the right hemiscrotum. LEFT HEMISCROTUM: The left testicle exhibits normal size and echo architecture with no evidence of intratesticular mass. Vascular flow is demonstrated within the left testicle, including arterial waveforms. There is an 8 x 9 millimeter cyst-spermatocele in the left epididymal head. Small hydrocele. No varicocele. IMPRESSION: 1. Right testicular implant. No surrounding fluid collection. 2. No mass nor torsion in the opposite-left testicle. 3. 8 x 9 millimeter left epididymal head cyst noted. Lab Data Lab results reviewed: Yes I reviewed the patient's lab results. Labs: Laboratory Tests Range/Units 12/25/20 12/25/20 12/25/20 12:25 12:34 12:34 WBC (4.4-10.8) 10^3/uL 12.93 H RBC (4.36-5.78) 10^6/uL 3.45 L Hgb (13.5-17.5) g/dL 10.0 L Hct (40.0-50.0) % 32.2 L MCV (80-95) fL 93.3 D MCH (27.0-33.0) pg 29.0 MCHC (32.0-36.0) % 31.1 L RDW (11.8-14.1) % 19.4 H Plt Count (130-400) 10^3/uL 266 MPV (8.0-11.0) fL 9.9 Immature Gran % 0.5 Neutrophils % 72.7 Lymphocytes % 15.7 Monocytes % 5.5 Eosinophils % 5.3 Basophils % 0.3 Nucleated RBC % % 0 Absolute Neutrophils (1.2-6.7) 10^3/uL 9.40 H Absolute Lymphocytes (1.2-3.4) 10^3/uL 2.03 Absolute Monocytes (0.1-0.8) 10^3/uL 0.71 Absolute Eosinophils (0.0-0.7) 10^3/uL 0.69 Absolute Basophils (0.0-0.2) 10^3/uL 0.04 VBG Lactate (0.6-1.4) mmol/L Sodium (136-145) mmol/L 140 Potassium (3.5-5.1) mmol/L 4.0 Chloride (98-107) mmol/L 103 Carbon Dioxide (21.0-32.0) mmol/L 27.7 Anion Gap (3-11) mmol/L 9.3 BUN (7-18) mg/dL 15 Creatinine (0.70-1.30) mg/dL 1.0 Estimated GFR/1.73 m2 (mL/min/1.73m2) >= 60.00 Glucose (74-106) mg/dL 194 H D Calcium (8.5-10.1) mg/dL 9.0 Total Bilirubin (0.2-1.0) mg/dL 0.4 AST (15-37) U/L 13 L ALT (16-63) U/L 20 Alkaline Phosphatase (46-116) U/L 82 Total Protein (6.4-8.2) g/dL 7.5 Albumin (3.4-5.0) g/dL 3.1 L Urine Color (Yellow) Yellow Urine Clarity (Clear) Sl Cloudy Urine pH (5-8) 7.5 Ur Specific [place] (1.005-1.025) 1.025 Urine Protein (Negative) mg/dL >=300 H Urine Ketones (Negative) mg/dL Negative Urine Blood (Negative) Large H Urine Nitrite (Negative) Negative Urine Bilirubin (Negative) Negative Urine Urobilinogen (Up TO 0.2) EU/dL 0.2 Ur Leukocyte Esterase (Negative) Negative Urine RBC (0-2) HPF >50 H Urine WBC (0-5) HPF 0-2 Ur Epithelial Cells (Negative) HPF Few Urine Crystals (Negative) HPF Negative Urine Bacteria (Negative) HPF Negative Urine Casts (Negative) LPF Negative Urine Mucus (Negative) Negative Ur Culture Indicated? No Urine Glucose (Negative) mg/dL Negative Range/Units 12/25/20 14:45 WBC (4.4-10.8) 10^3/uL RBC (4.36-5.78) 10^6/uL Hgb (13.5-17.5) g/dL Hct (40.0-50.0) % MCV (80-95) fL MCH (27.0-33.0) pg MCHC (32.0-36.0) % RDW (11.8-14.1) % Plt Count (130-400) 10^3/uL MPV (8.0-11.0) fL Immature Gran % Neutrophils % Lymphocytes % Monocytes % Eosinophils % Basophils % Nucleated RBC % % Absolute Neutrophils (1.2-6.7) 10^3/uL Absolute Lymphocytes (1.2-3.4) 10^3/uL Absolute Monocytes (0.1-0.8) 10^3/uL Absolute Eosinophils (0.0-0.7) 10^3/uL Absolute Basophils (0.0-0.2) 10^3/uL VBG Lactate (0.6-1.4) mmol/L 1.6 H Sodium (136-145) mmol/L Potassium (3.5-5.1) mmol/L Chloride (98-107) mmol/L Carbon Dioxide (21.0-32.0) mmol/L Anion Gap (3-11) mmol/L BUN (7-18) mg/dL Creatinine (0.70-1.30) mg/dL Estimated GFR/1.73 m2 (mL/min/1.73m2) Glucose (74-106) mg/dL Calcium (8.5-10.1) mg/dL Total Bilirubin (0.2-1.0) mg/dL AST (15-37) U/L ALT (16-63) U/L Alkaline Phosphatase (46-116) U/L Total Protein (6.4-8.2) g/dL Albumin (3.4-5.0) g/dL Urine Color (Yellow) Urine Clarity (Clear) Urine pH (5-8) Ur Specific [place] (1.005-1.025) Urine Protein (Negative) mg/dL Urine Ketones (Negative) mg/dL Urine Blood (Negative) Urine Nitrite (Negative) Urine Bilirubin (Negative) Urine Urobilinogen (Up TO 0.2) EU/dL Ur Leukocyte Esterase (Negative) Urine RBC (0-2) HPF Urine WBC (0-5) HPF Ur Epithelial Cells (Negative) HPF Urine Crystals (Negative) HPF Urine Bacteria (Negative) HPF Urine Casts (Negative) LPF Urine Mucus (Negative) Ur Culture Indicated? Urine Glucose (Negative) mg/dL <Miley Barry - Last Filed: 12/25/20 21:24> 1642: Care assumed from provider (KAYLYN Horton) Please see their initial HPI, PE, and documentation. Discussed patient details and case and pending workup and disposition. Patient is hemodynamically stable, and alert and oriented. Awaiting urology consultation. Patient was just given a Pyridium and 0.5 of Dilaudid for discomfort. 1705: Spoke with Dr. Ridley with Urology at [facility], discussed patient case and details he verbalizes understanding. He does recommend follow-up with Dr. Montes De Oca with urology at some point. He does not recommend nor oppose antibiotic for possible early infection. Patient placed on 5 more days of levofloxacin this was the antibiotic that he was on for the last 5 days. I did discuss with soon follow-up appointment with Dr. Vazquez at [facility] he verbalizes understanding. Discuss strict return instructions, verbalized understanding. Patient remained hemodynamically stable throughout stay. This text was generated using [employer] system, please disregard any oddities of phrase or misspellings. HPI <KAYLYN Sampson - Last Filed: 12/25/20 16:52> General Mode of arrival: wheelchair. Date/Time Provider Initiated Documentation: 12/25/20 11:32. Limitations to Documentation: no limitations. Information obtained by: patient and family. HPI Narrative: This is a 75-year-old gentleman, past medical history that includes DVT, chronic anticoagulation, CHF, CVA, anemia, hypertension, hyperlipidemia, GERD, BPH, diabetes, peripheral neuropathy, seizure disorder, RA, CAD, presenting to the ER today feeling like he needs to urinate frequently, cannot empty completely, is having pain in his suprapubic region, penis and right testicle. Patient states that he is chronically anticoagulated and taking his medications as directed. Patient denies fever, history of renal stones, renal stone chest pain, shortness of breath, back pain, recent illness or trauma. Patient reports his pain is intermittent but when present is rather severe. Patient wonders if he has a blood clot in his bladder blocking his urine. Patient does have a penis prosthesis and a right testicle implant Related Data Home Medications Medication Instructions Recorded Confirmed folic acid 1 mg PO QAM 10/13/12 12/25/20 finasteride 5 mg PO DAILY #90 tab-cap 03/29/14 12/25/20 fluticasone propionate [Flonase 9.9 ml NS BID PRN 07/03/15 12/25/20 Allergy Relief] nitroglycerin [Nitrostat] 0.4 mg BUCCAL PRN PRN tab-cap 07/03/15 12/25/20 pyridoxine (vitamin B6) [Vitamin 50 mg PO DAILY 07/03/15 12/25/20 B-6] rosuvastatin [Crestor] 40 mg PO HS 07/03/15 12/25/20 bupropion HCl 150 mg 24 hr tablet, 150 mg PO QAM 08/23/18 12/25/20 extended release tamsulosin 0.4 mg capsule 0.4 mg PO DAILY 08/23/18 12/25/20 Saccharomyces boulardii 250 mg PO DAILY 03/05/19 12/08/20 cholecalciferol (vitamin D3) 2,000 unit PO DAILY 03/05/19 12/25/20 [Vitamin D3] leflunomide 20 mg PO DAILY 03/05/19 04/30/20 liothyronine [Cytomel] 5 mcg PO DAILY 03/05/19 12/25/20 Levemir FlexTouch U-100 Insuln See Rx Instructions .ROUTE .COMPLEX 04/11/20 12/25/20 methylprednisolone 4 mg PO DAILY 04/11/20 12/25/20 pantoprazole 40 mg tablet,delayed 40 mg PO DAILY #30 tab 05/16/20 12/25/20 release Entyvio 300 mg IV DIRECTED 11/17/20 12/25/20 albuterol sulfate [ProAir HFA] 2 puff INHALATION Q4H PRN PRN 11/17/20 12/25/20 irbesartan 300 mg PO DAILY 11/17/20 12/25/20 sertraline 200 mg PO DAILY 11/17/20 12/25/20 spironolactone 50 mg PO DAILY 11/17/20 12/07/20 Pentasa 1,000 mg PO TID 12/07/20 12/25/20 Restasis 1 drp OPHTHALMIC (EYE) BID 12/07/20 12/25/20 buprenorphine 1 patch TRANSDERMAL QWEEK 12/07/20 12/07/20 insulin lispro [Humalog KwikPen unit SUBCUT 12/07/20 Insulin] levothyroxine 175 mcg PO DAILY@0600 12/07/20 12/25/20 mirtazapine 7.5 mg PO QHS 12/07/20 12/25/20 oxycodone 10 mg PO TID PRN 12/07/20 12/25/20 ropinirole 1 mg PO QHS 12/07/20 12/07/20 Rasuvo (PF) 20 mg SUBCUT Q7D 12/08/20 12/08/20 alendronate 70 mg PO QWEEK 12/08/20 12/08/20 gabapentin 400 mg PO BID 12/08/20 12/25/20 dabigatran etexilate [Pradaxa] 150 mg PO BID #60 cap 12/09/20 12/25/20 enoxaparin [Lovenox] 100 mg SUBCUT Q12H #10 ml 12/09/20 levofloxacin 750 mg PO QAM #5 tab 12/09/20 Saccharomyces boulardii [Digest 250 mg PO DAILY 12/25/20 12/25/20 Probiotic (S.boulardii)] albuterol sulfate 2.5 mg INHALATION Q2H PRN PRN 12/25/20 12/25/20 buprenorphine [Butrans] See Rx Instructions .ROUTE .COMPLEX 12/25/20 12/25/20 ipratropium-albuterol 3 ml INHALATION Q6H PRN PRN 12/25/20 12/25/20 levofloxacin 750 mg PO DAILY 5 Days #5 tab 12/25/20 methotrexate (PF) See Rx Instructions .ROUTE .COMPLEX 12/25/20 12/25/20 ropinirole 1 mg PO HS 12/25/20 12/25/20 Previous Rx's Medication Instructions Recorded pantoprazole 40 mg tablet,delayed 40 mg PO DAILY #30 tab 05/16/20 release dabigatran etexilate [Pradaxa] 150 mg PO BID #60 cap 12/09/20 enoxaparin [Lovenox] 100 mg SUBCUT Q12H #10 ml 12/09/20 levofloxacin 750 mg PO QAM #5 tab 12/09/20 levofloxacin 750 mg PO DAILY 5 Days #5 tab 12/25/20 Allergies Allergy/AdvReac Type Severity Reaction Status Date / Time infliximab Allergy Unknown Verified 12/25/20 11:42 methotrexate AdvReac Mild Unverified 12/25/20 11:42 atorvastatin calcium AdvReac Bones ache. Unverified 12/25/20 11:42 [From Lipitor] RAMICAIN AdvReac Uncoded 12/25/20 11:42 General Stated Complaint: Urinary HEMA: 3 Review of Systems <KAYLYN Sampson - Last Filed: 12/25/20 16:52> Constitutional Constitutional: Denies fever(s) ENT Ears, Nose, Mouth, and Throat: Denies neck pain Cardiovascular Cardiovascular: Denies chest pain and Denies dyspnea Respiratory Respiratory: Denies dyspnea Gastrointestinal Gastrointestinal: Reports abdominal pain (Suprapubic), Denies nausea and Denies vomiting Genitourinary Genitourinary: Denies hematuria, Reports dysuria, Reports testicular pain and Reports urinary urgency Musculoskeletal Musculoskeletal: Denies back pain and Denies neck pain Integumentary/Breasts Skin/Breast: Denies rash Hematologic/Lymphatic Hematologic/Lymphatic: Reports easy bleeding and Reports easy bruising PFSH <KAYLYN Sampson - Last Filed: 12/25/20 16:52> Medical History Adrenal insufficiency Benign prostatic hyperplasia (07/03/15) Coronary artery disease Crohns disease Diabetes mellitus, type II, insulin dependent DVT (deep venous thrombosis) Erectile dysfunction of organic origin (07/03/15) GERD (gastroesophageal reflux disease) GI bleed Graves disease Hyperlipidemia Hypertension Hypothyroidism Obstructive sleep apnea Peripheral neuropathy Rheumatoid arthritis Sensorineural hearing loss, bilateral (01/28/15) Stroke 2018 Traumatic compression fracture of T12 thoracic vertebra Vitamin B12 deficiency Vitamin B6 deficiency Vitamin D deficiency Surgical History Graves' eye disease s/p surgery H/O lumbosacral spine surgery Prosthesis, Penile implant Family History Father Asthma Sister Asthma Social History Smoking/Tobacco Use Status: Former Tobacco Use Smoking risk assessment performed?: Yes Alcohol Intake: former Substance use type: does not use Household members: spouse Number of Children: 5 current occupation: Ret[employer] What is your relationship status?: Panel score (0-1 are the most socially isolated patients): 1 Do you feel safe at home: Yes Do you feel safe in your relationship?: Yes Exam <KAYLYN Sampson - Last Filed: 12/25/20 16:52> Const General: cooperative, healthy appearing and other (Appears uncomfortable) Orientation: alert and awake HENMT Head: normal to inspection, normocephalic and atraumatic Mouth: moist mucous membranes Eyes General: appearance normal, both eyes and all related structures Conjunctivae: conjunctivae normal Neck Neck: normal visual inspection, full ROM, trachea midline and supple Resp Effort & Inspection: normal respiratory effort and able to speak in complete sentences Auscultation: clear to auscultation bilaterally Cardio Rate: regular rate Rhythm: regular rhythm GI Inspection: normal to inspection Palpation: soft, not firm, no guarding, no pulsatile masses and tender suprapubicly; with no rebound tenderness Auscultation: normal bowel sounds Penis: normal penis Meatus: meatus normal Scrotum: scrotum normal Testes: other (Right testicle implant present. Left testicle unremarkable) Skin General skin exam: no rashes or lesions noted Neuro General: patient alert, patient awake, moves all extremities and no focal motor deficits Sensory Exam: no sensory deficits noted Psych Appearance: grossly normal Mental Status: mental status grossly normal Course <KAYLYN Sampson - Last Filed: 12/25/20 16:52> Vital Signs Vital signs: Vital Signs Temperature 36.6 C 12/25/20 11:38 Pulse 77 12/25/20 11:38 Respiratory Rate 20 12/25/20 11:38 Pulse Oximetry 95 12/25/20 11:38 Temperature 36.6 C 12/25/20 11:38 Temperature Source Skin 12/25/20 11:38 Pulse 82 12/25/20 11:56 Respiratory Rate 20 12/25/20 11:38 Respiratory Effort Non-Labored 12/25/20 11:51 Blood Pressure 160/112 H 12/25/20 11:56 Blood Pressure Mean 125 12/25/20 11:56 Blood Pressure Position Sitting 12/25/20 11:38 Pulse Oximetry 96 12/25/20 11:56 Oxygen Delivery Method Room Air 12/25/20 11:38 Oxygen Flow Rate 0 12/25/20 11:38 Pain Level 5 12/25/20 11:51 Sign Out <KAYLYN Sampson - Last Filed: 12/25/20 16:52> Sign Out Data: Sign Out Comment: Hematuria, suprapubic pain. CT revealed nonspecific streaking. Awaiting urology consultation Last updated by Tanmay Fisher PA at 12/25/20 16:22
[2020-12-25 12:38] LABS: Bilirubin Negative (Negative); Blood Large (Negative); Clarity Sl Cloudy (Clear); Glucose Negative (Negative); Ketones Negative (Negative); Leukocyte Esterase Negative (Negative); Nitrite Negative (Negative); Specific Gravity 1.025 (1.005-1.025); Urobilinogen 0.2 EU/dL (Up TO 0.2); pH 7.5 (5-8)
[2020-12-25 12:51] LABS: Abs Immature Grans 0.07 10^3/uL (0.0-0.06); Absolute Basophil Count 0.04 10^3/uL (0.0-0.2); Absolute Lymphocyte Count 2.03 10^3/uL (1.2-3.4); Absolute Monocyte Count 0.71 10^3/uL (0.1-0.8); Basophils % 0.3; Eosinophils % 5.3; HCT 32.2 % (40.0-50.0); Immature Grans % 0.5; Lymphocytes % 15.7; MCHC 31.1 % (32.0-36.0); MCV 93.3 fL (80-95); MPV 9.9 fL (8.0-11.0); Monocytes % 5.5; Neutrophils % 72.7; Nucleated RBC 0 %; Platelet Count 266 10^3/uL (130-400); RBC 3.45 10^6/uL (4.36-5.78); RDW 19.4 % (11.8-14.1); RDW-SD 66.2 fL; WBC 12.93 10^3/uL (4.4-10.8)
[2020-12-25 12:53] LABS: Bacteria Negative HPF (Negative); C & S Indicated? No; Casts Negative LPF (Negative); Crystals Negative HPF (Negative); Epithelial Cells Few HPF (Negative); Mucus Negative (Negative); RBC >50 HPF (0-2); WBC 0-2 HPF (0-5)
[2020-12-25 12:54] LABS: Absolute Eosinophil Count 0.69 10^3/uL (0.0-0.7)
[2020-12-25] MEDS: MORPHine 10 MG/ML VIAL 2 MG IVP (13:05)
--- NOTE | 2020-12-25 13:53 | DI.CT_ITS ---
Exam(s) CT RENAL COLIC WO EXAM: CT RENAL COLIC WO CLINICAL HISTORY: hematuria, suprapubic/groin pain. TECHNIQUE: Imaging Protocol: Axial computed tomography images with coronal and sagittal reformatted images were created and reviewed CONTRAST MATERIAL: Intravenous: none Oral: None COMPARISON: CT CT CHEST PE CTA from 12/07/2020 FINDINGS: VISUALIZED LUNG BASES: COPD and interstitial fibrotic disease again noted. No pleural effusions.. C ardiomegaly again noted. No pericardial effusion. ABDOMEN: There is no ascites. LIVER: There are no obvious focal hepatic lesions evident of this noninfused study. GALLBLADDER/BILIARY: No obvious gallbladder pathology. CBD is not dilated. PANCREAS: Pancreas is atrophic at the level of body and tail and there are multiple punctate parenchy mal calcifications in the pancreas as well as dilatation of the duct of the pancreas in the body and tail, the duct measuring 6 millimeters. There is also a larger 7 x 6 millimeter calcification in the pancreas at the junction of the body-neck region and the duct is dilated proximal to this. The duct is not dilated in the pancreatic head nor within the uncinate process. No obvious mass. SPLEEN: Spleen is not enlarged. No obvious intrasplenic lesions. ADRENALS: There are no significant adrenal masses. KIDNEYS:There is a 1.7 cm cyst in the posterior cortex of the left kidney. No solid masses. No calc chelo. There is a punctate 1 millimeter nonobstructive calculus in the opposite-right kidney. No hydr onephrosis.. ABDOMINAL AORTA: Abdominal aorta is not enlarged. LYMPH NODES: There is no retroperitoneal nor paraaortic adenopathy. ABDOMINAL WALL: No evidence of significant anterior abdominal wall hernia. GI: There diverticuli in the descending-left colon and distal 3rd of the transverse colon but there i s no evidence of acute diverticulitis.. The appendix is slightly thickened, measuring 12 millimeters. There is minimal if any significant holguin rrounding streaking and there is some no appendicolith. PELVIS: LYMPH NODES: There is no intrapelvic nor inguinal adenopathy. Prostate gland size is minimally prominent. Urinary bladder is not distended but there is abundant s treaking around the urinary bladder evident as well as streaking in the perineum. There is also righ t-sided bladder diverticulum measuring 2 by 2 cm. To the right of the urinary bladder is a reservoir measuring 5 by 4 cm and this extends with through the right inguinal canal into the right hemiscrotu m. 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 OSSEOUS: T12 compression fracture which contains vertebroplasty cement. No compression fractures in the lumbar spine. No osseous lesions evident IMPRESSION: 1. The main finding here is abundant abnormal streaking around the bladder and perineum in this patie nt who has a penile implant with right perivesicular reservoir. 2. The appendix appears thickened (12 millimeters) but does not exhibit surrounding streaking nor urbano s not contain an appendicolith. Terminal ileum appears unremarkable. The low pelvic streaking is re latively symmetrical and is doubtful related to the thickened appendix. 3. The pancreatic body and tail are atrophic, these being proximal to a large calcification which is most probably obstructing the pancreatic duct. There is no evidence of acute pancreatitis.. Findings discussed with ER provider following completion of the study 12/25/2020. RADIATION DOSE DELIVERED: 1,071.25mGy.cm Total DLP DATA REPOSITORY: All CT scans at this facility are submitted to the National Radiology Data Registry (NRDR) Dose Index Registry (DIR) with the [employer] ([employer]). RADIATION OPTIMIZATION: All CT scans at this facility use at least one of these dose optimization te chniques: automated exposure control; mA and/or kV adjustment per patient size (includes targeted exa ms where dose is matched to clinical indication); or iterative reconstruction.
[2020-12-25 13:54] LABS: ALT 20 U/L (16-63); AST 13 U/L (15-37); Albumin 3.1 g/dL (3.4-5.0); Alkaline Phosphatase 82 U/L (46-116); Anion Gap 9.3 mmol/L (3-11); BUN 15 mg/dL (7-18); Bilirubin, Total 0.4 mg/dL (0.2-1.0); CO2 27.7 mmol/L (21.0-32.0); Chloride 103 mmol/L (98-107); Glucose 194 mg/dL (74-106); Sodium 140 mmol/L (136-145); Total Protein 7.5 g/dL (6.4-8.2)
[2020-12-25] MEDS: MORPHine 4 MG/ML SYR IVP (14:45)
[2020-12-25 14:52] LABS: Lactate 1.6 mmol/L (0.6-1.4)
[2020-12-25] MEDS: Phenazopyridine 200 MG TAB PO (17:07)
[2020-12-25] MEDS: HYDROmorphone 2 MG/ML VIAL 0.5 MG IVP (17:07)
[2020-12-25] MEDS: levoFLOXacin 250 MG TAB PO (17:27)
[2020-12-25] MEDS: levoFLOXacin 500 MG TAB PO (17:27)
[2020-12-25] MEDS: Phenazopyridine 100 MG TAB, 2 TABS/BTL PO (17:37)
== END 2020-12-25 17:35 | disposition home or self-care (01) ==
PROVIDERS: Physician Assistant; Emergency Provider Registered Nurse Emergency; PCP Family Medicine
DX: R10.30 Lower abdominal pain, unspecified (principal); R31.9 Hematuria, unspecified
CPT/HCPCS: 36415; 80053; 96374; 96375; 96376; 99284; 74176; 76870; 81003; 81015; 83605; 85025; J2270

== ENCOUNTER 2020-12-31 18:02 | Inpatient (IN) | payer MEDICARE, MEDICAID, SELFPAY ==
[2020-12-31] VITALS (19 sets, daily range): BP systolic 106–116; BP diastolic 53–93; PULSE 83–105; RESP 11–25; TEMP 36.5–37.3; O2SAT 91–97
--- NOTE | 2020-12-31 18:00 | RT.EKG_ITS ---
APPROVED REPORT Exam: Resting ECG Reason for Exam: low bp Patient Location: E HR:100 bpm ECG Measurements Heart Rate 100 AXIS MA 188 P 3 QRSd 135 QRS -12 QT 384 T 2 QTc 496 Conclusion Sinus tachycardia.. Nonspecific intraventricular conduction delay. Inferior infarct, old...Q >35mS, II III aVF
[2020-12-31 19:07] LABS: Abs Immature Grans 0.11 10^3/uL (0.0-0.06); Absolute Basophil Count 0.01 10^3/uL (0.0-0.2); Absolute Eosinophil Count 0.16 10^3/uL (0.0-0.7); Absolute Lymphocyte Count 0.99 10^3/uL (1.2-3.4); Absolute Neutrophil Count 10.91 10^3/uL (1.2-6.7); Basophils % 0.1; Eosinophils % 1.2; HCT 30.6 % (40.0-50.0); HGB 9.3 g/dL (13.5-17.5); Immature Grans % 0.8; Lymphocytes % 7.6; MCH 28.5 pg (27.0-33.0); MCHC 30.4 % (32.0-36.0); MCV 93.9 fL (80-95); MPV 10.1 fL (8.0-11.0); Monocytes % 6.9; Neutrophils % 83.4; Nucleated RBC 0 %; Platelet Count 292 10^3/uL (130-400); RBC 3.26 10^6/uL (4.36-5.78); RDW 18.8 % (11.8-14.1); RDW-SD 65.2 fL; WBC 13.08 10^3/uL (4.4-10.8)
[2020-12-31 19:19] LABS: Magnesium 1.7 mg/dL (1.8-2.4)
[2020-12-31 19:30] LABS: ALT 19 U/L (16-63); AST 24 U/L (15-37); Albumin 2.8 g/dL (3.4-5.0); Alkaline Phosphatase 80 U/L (46-116); Anion Gap 11.9 mmol/L (3-11); BUN 34 mg/dL (7-18); Bilirubin, Total 0.8 mg/dL (0.2-1.0); CO2 24.1 mmol/L (21.0-32.0); CREATININE 2.5 mg/dL (0.70-1.30); Calcium 8.8 mg/dL (8.5-10.1); Chloride 97 mmol/L (98-107); Estimated GFR 25.24 (mL/min/1.73m2); Glucose 216 mg/dL (74-106); INR 1.4 (0.9-1.1); Potassium 5.1 mmol/L (3.5-5.1); Prothrombin Time 14.1 sec (9.3-11.0); Sodium 133 mmol/L (136-145); Total Protein 7.7 g/dL (6.4-8.2); Troponin I < 0.05 ng/mL (<0.06)
[2020-12-31 19:33] LABS: NT-proBNP 739 pg/mL (<300)
--- NOTE | 2020-12-31 19:37 | DI.RAD_ITS ---
Exam(s) XR CHEST 2V PA LATERAL EXAM: XR CHEST 2V PA LATERAL CLINICAL HISTORY: ams. TECHNIQUE: 2D digital imaging was performed. COMPARISON: CR XR PORTABLE CHEST AP from 12/08/2020 FINDINGS: Cardiomegaly again noted. PICC line is been removed. Mediastinum unchanged. Left lung appears clear. Increased interstitial markings noted in the right lung, similar to the pre vious study. There are no obvious pleural effusions evident on this portable view. Compression fractures at T12 and L1 again noted with vertebral plasty cement again evident in L1 vert ebral body. IMPRESSION: Cardiomegaly. Increased interstitial markings in the right lung. No obvious pleural effusions. DATA REPOSITORY: RADIATION DOSE DELIVERED:
--- NOTE | 2020-12-31 19:45 | DI.CT_ITS ---
Exam(s) CT HEAD WO EXAM: CT HEAD WO CLINICAL HISTORY: ams. TECHNIQUE: Imaging Protocol: Axial computed tomography images with coronal and sagittal reformatted images were created and reviewed COMPARISON: CT CT HEAD WO from 03/05/2019 FINDINGS: Images are degraded by motion artifact. There are no obvious acute skull fractures nor fluid in the visualized paranasal sinuses. Evidence of orbital lower fractures again noted. Fixation plate over the lateral wall right orbit is again noted. There is no evidence of intracranial hemorrhage, mass effect, or shift of midline structures. There are no extra-axial fluid collections. The ventricles are not enlarged or shifted and there is no blo od within the ventricular system nor within the basal cisterns. Heavy calcification of both vertebral arteries at skull base noted as is calcification intracavernous internal carotid arteries bilaterally. Small lacunar infarcts are noted in the left thalamus and la teral to the right thalamus in the region the posterior limb of the right internal capsule these find ings are unchanged.. There is periventricular hypodensity consistent with chronic small vessel disea se. IMPRESSION: No acute intracranial findings on this noninfused CT scan of the brain. White matter chronic ischemic findings as described above, unchanged. RADIATION DOSE DELIVERED: 916.48mGy.cm Total DLP DATA REPOSITORY: All CT scans at this facility are submitted to the National Radiology Data Registry (NRDR) Dose Index Registry (DIR) with the [employer] ([employer]). RADIATION OPTIMIZATION: All CT scans at this facility use at least one of these dose optimization te chniques: automated exposure control; mA and/or kV adjustment per patient size (includes targeted exa ms where dose is matched to clinical indication); or iterative reconstruction.
--- NOTE | 2020-12-31 19:52 | DI.VRAD_ITS ---
PROCEDURE INFORMATION: Exam: XR Chest Exam date and time: 12/31/2020 6:22 PM Age: 75 years old Clinical indication: Other: AMS TECHNIQUE: Imaging protocol: XR of the chest. Views: 2 views. Total images: 2 COMPARISON: CR XR PORTABLE CHEST AP 12/08/2020 11:48 AM FINDINGS: Tubes, catheters and devices: Previous left upper extremity PICC line removed. Lungs: Low lung volumes. Mild central vascular congestion. Mild interstitial prominence in the perihilar and basilar distributions, right greater than left. This may relate to chronic interstitial scarring versus mild interstitial edema versus bronchitis and interstitial pneumonitis. No pushpa consolidations. Pleural spaces: No pleural effusion. No pneumothorax. Heart/Mediastinum: Moderate cardiomegaly. Vasculature: Mild aortic ectasia/tortuosity and mild calcific atherosclerosis. Bones/joints: No acute osseous abnormalities are identified. Osteopenia. Chronic appearing compression fractures at T12 and L1 with prior L1 osteoplasty. IMPRESSION: 1. Cardiomegaly and vascular congestive changes suggesting CHF, with perihilar interstitial prominence, right greater than left, which may relate to a mild element of interstitial edema, versus interstitial scarring or bronchitis/interstitial pneumonitis. No consolidations. 2. Additional nonemergent findings detailed above. Dictated and Authenticated by: Celestine Krishnamurthy MD. Ordering:JESSICA Donato MD
--- NOTE | 2020-12-31 19:57 | DI.VRAD_ITS ---
PROCEDURE INFORMATION: Exam: CT Head Without Contrast Exam date and time: 12/31/2020 6:22 PM Age: 75 years old Clinical indication: Other: AMS TECHNIQUE: Imaging protocol: Computed tomography of the head without contrast. Total images: 1125 Radiation optimization: All CT scans at this facility use at least one of these dose optimization techniques: automated exposure control; mA and/or kV adjustment per patient size (includes targeted exams where dose is matched to clinical indication); or iterative reconstruction. COMPARISON: CT HEAD WO 03/05/2019 11:29 AM FINDINGS: Brain: Moderate generalized atrophy. Mild bilateral white matter hypodensities which are nonspecific but most commonly associated with chronic microvascular ischemia in this age group. No extra-axial fluid collections. No evidence of acute intracranial hemorrhage. Caballero-white differentiation is well maintained. No CT evidence of large territory acute or subacute intracranial ischemia/infarct. No intracranial mass lesions. No midline shift or herniation. Cerebral ventricles: Mild compensatory ventriculomegaly secondary to central atrophy. Paranasal sinuses: Visualized paranasal sinuses are clear. Mastoid air cells: Visualized mastoid air cells are clear. Orbital cavity: Visualized orbital contents demonstrate no evidence of acute abnormality. Moderate motion artifact limits orbital assessment. Vasculature: Moderate-severe calcific atherosclerosis. No asymmetric vascular hyperdensities suggestive of thrombosis are identified. Bones/joints: No acute osseous abnormalities. Chronic bilateral medial orbital wall blowout fractures and orbital floor fractures unchanged in appearance. Prior hardware fixation of the right lateral orbit again noted with bilateral lateral orbital wall defects which are unchanged and probably postoperative in nature. Soft tissues: The scalp and visualized soft tissues demonstrate no acute abnormality. Other findings: The IACs are grossly normal. The sella is grossly normal. IMPRESSION: 1. No acute intracranial process. No intracranial hemorrhage or mass effect. 2. Atrophy and chronic microvascular changes consistent with age. 3. Moderate-severe calcific atherosclerosis. 4. Chronic posttraumatic and postoperative changes in the orbits, unchanged. Dictated and Authenticated by: Celestine Krishnamurthy MD. Ordering:JESSICA Donato MD
[2020-12-31 19:59] LABS: Bilirubin Small (Negative); Blood Large (Negative); Clarity Sl Cloudy (Clear); Glucose Negative (Negative); Ketones Negative (Negative); Leukocyte Esterase Negative (Negative); Nitrite Negative (Negative); Specific Gravity >= 1.030 (1.005-1.025); Urobilinogen 0.2 EU/dL (Up TO 0.2); pH 5.5 (5-8)
[2020-12-31 20:14] LABS: Bacteria Moderate HPF (Negative); Crystals Negative HPF (Negative); Mucus Negative (Negative); RBC >50 HPF (0-2)
[2020-12-31 20:16] LABS: C & S Indicated? Yes; Casts 5-10 Hyaline LPF (Negative); Epithelial Cells Moderate HPF (Negative)
[2020-12-31 20:20] LABS: Creatine Kinase 95 U/L (39-308)
--- NOTE | 2020-12-31 20:22 | ED.GENADUL_ITS ---
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 10^3/uL Absolute Lymphocytes (1.2-3.4) 10^3/uL Absolute Monocytes (0.1-0.8) 10^3/uL Absolute Eosinophils (0.0-0.7) 10^3/uL Absolute Basophils (0.0-0.2) 10^3/uL PT (9.3-11.0) sec 14.1 H INR (0.9-1.1) 1.4 H APTT (21.0-27.5) sec 37.0 H Sodium (136-145) mmol/L Potassium (3.5-5.1) mmol/L Chloride (98-107) mmol/L Carbon Dioxide (21.0-32.0) mmol/L Anion Gap (3-11) mmol/L BUN (7-18) mg/dL Creatinine (0.70-1.30) mg/dL Estimated GFR/1.73 m2 (mL/min/1.73m2) Glucose (74-106) mg/dL Calcium (8.5-10.1) mg/dL Magnesium (1.8-2.4) mg/dL Total Bilirubin (0.2-1.0) mg/dL AST (15-37) U/L ALT (16-63) U/L Alkaline Phosphatase (46-116) U/L Troponin I (<0.06) ng/mL NT-Pro-B Natriuret Pep (<300) pg/mL 739 H Total Protein (6.4-8.2) g/dL Albumin (3.4-5.0) g/dL TSH (0.36-3.74) uIU/mL Urine Color (Yellow) Serene Urine Clarity (Clear) Sl Cloudy Urine pH (5-8) 5.5 Ur Specific [place] (1.005-1.025) >= 1.030 H Urine Protein (Negative) mg/dL 30 H Urine Ketones (Negative) mg/dL Negative Urine Blood (Negative) Large H Urine Nitrite (Negative) Negative Urine Bilirubin (Negative) Small H Urine Urobilinogen (Up TO 0.2) EU/dL 0.2 Ur Leukocyte Esterase (Negative) Negative Urine RBC (0-2) HPF >50 H Urine WBC (0-5) HPF 10-20 H Ur Epithelial Cells (Negative) HPF Moderate Urine Crystals (Negative) HPF Negative Urine Bacteria (Negative) HPF Moderate Urine Casts (Negative) LPF 5-10 Hyaline Urine Mucus (Negative) Negative Ur Culture Indicated? Yes Urine Glucose (Negative) mg/dL Negative
[2020-12-31] MEDS: Normal Saline 1,000 ML 150 ML IV (20:47)
[2020-12-31 20:50] LABS: Source Nasal/Nares
[2020-12-31 20:55] LABS: Bilirubin Negative (Negative); Blood Negative (Negative); Clarity Clear (Clear); Glucose Negative (Negative); Ketones Negative (Negative); Leukocyte Esterase Negative (Negative); Nitrite Negative (Negative); Specific Gravity 1.025 (1.005-1.025); Urobilinogen 0.2 EU/dL (Up TO 0.2); pH 5.5 (5-8)
[2020-12-31 20:57] LABS: COVID-19 PCR Negative (Negative)
[2020-12-31] MEDS: cefTRIAXone 1 GM/50 ML BAG IVPB (21:36)
--- NOTE | 2020-12-31 22:30 | NUR.NOTE ---
KAYLYN Fisher had ordered BC x2. Pt needed to have an US IV placed upon arrival. Multiple attempts made, only one good set obtained by the lab. Nursing Note:
[2020-12-31 22:32] LABS: Troponin I < 0.05 ng/mL (<0.06)
--- NOTE | 2020-12-31 22:40 | W.PM.HP.N ---
Date of service: 12/31/20 Time of Service: 22:40 Assessment and Plan Assessment and plan (1) Hematuria: Status: Acute Assessment and plan: This is likely due to his current urinary tract infection. (2) UTI (urinary tract infection): Status: Acute Assessment and plan: By history he has been taking his levofloxacin. We will start him on ceftriaxone tonight. Qualifiers: Urinary tract infection type: acute cystitis Hematuria presence: with hematuria Qualified Code(s): N30.01 - Acute cystitis with hematuria (3) Weakness: Status: Acute Assessment and plan: This is likely due to his current urinary tract infection. (4) Frequent falls: Status: Acute Assessment and plan: Etiology of this is unclear at this time. (5) PRISCILLA (acute kidney injury): Status: Resolved Assessment and plan: We will continue IV fluids. We will recheck labs and ultrasound tomorrow. He did have an ultrasound of the kidneys in the emergency department by Dr. Burrell which by report did not show any hydronephrosis. History of Present Illness History of Present Illness Chief Complaint: Weakness and low blood pressure and frequent falls. Narrative: This 75-year-old male was here again emergency department. He has had many visits over the last few months. He fell about 3 weeks ago and fractured some ribs. He was here recently for DVT of his leg. He was here most recently here for hematuria a few days ago. It was felt that he might have a urinary tract infection was started on levofloxacin. He fell last night at home. He lives with his . It is getting to be much more difficult for her to manage him because of his frequent falls. He has been in a wheelchair for the last 3 years ago because of fracture of his back. He was told that he is not well enough to withstand surgery for the back. His has had trouble getting him up after he falls. He fell last night and again today. He saw his doctor at the office and was referred here for further evaluation. His blood pressure was low at the office. He has had his had a tough last 15 years but things been much worse in the last 3 years. In the emergency department it was thought that he is dehydrated and has a urinary tract infection. Review of Systems Constitutional Constitutional: Denies body ache(s), Reports chills, Reports fatigue, Denies fever(s), Reports frequent falls and Reports weakness Cardiovascular Cardiovascular: Denies chest pain, Denies palpitations and Reports dyspnea Respiratory Respiratory: Reports cough and Reports dyspnea Gastrointestinal Gastrointestinal: Reports diarrhea, Denies nausea and Denies vomiting Genitourinary Genitourinary: Reports hematuria, Denies dysuria and Denies urinary frequency Musculoskeletal Musculoskeletal: Denies myalgias and Reports muscle weakness Neurologic Neurologic: Reports frequent falls and Reports weakness Endocrine Endocrine: Reports fatigue and Denies palpitations [facility] Medical History (Updated 12/31/20 @ 22:49 by Celestine Rosenbaum MD) Adrenal insufficiency Benign prostatic hyperplasia (07/03/15) Coronary artery disease Crohns disease Diabetes mellitus, type II, insulin dependent DVT (deep venous thrombosis) Erectile dysfunction of organic origin (07/03/15) Frequent falls GERD (gastroesophageal reflux disease) GI bleed Graves disease Hyperlipidemia Hypertension Hypothyroidism Obstructive sleep apnea Peripheral neuropathy Rheumatoid arthritis Sensorineural hearing loss, bilateral (01/28/15) Stroke 2018 Traumatic compression fracture of T12 thoracic vertebra Vitamin B12 deficiency Vitamin B6 deficiency Vitamin D deficiency Surgical History Graves' eye disease s/p surgery H/O lumbosacral spine surgery Prosthesis, Penile implant Family History Father Asthma Sister Asthma Social History Smoking/Tobacco Use Status: Former Tobacco Use Smoking risk assessment performed?: Yes Alcohol Intake: former Substance use type: does not use Household members: spouse Number of Children: 5 current occupation: Retired [employer] What is your relationship status?: Panel score (0-1 are the most socially isolated patients): 1 Do you feel safe at home: Yes Do you feel safe in your relationship?: Yes Meds Allergies and Home Medications Allergies Allergy/AdvReac Type Severity Reaction Status Date / Time infliximab Allergy Unknown Verified 12/31/20 18:14 methotrexate AdvReac Mild Unverified 12/31/20 18:14 atorvastatin calcium AdvReac Bones ache. Unverified 12/31/20 18:14 [From Lipitor] RAMICAIN AdvReac Uncoded 12/31/20 18:14 Home Medications Medication Instructions Recorded Confirmed Type folic acid 1 mg PO QAM 10/13/12 12/31/20 History finasteride 5 mg PO DAILY #90 tab-cap 03/29/14 12/31/20 History fluticasone propionate [Flonase 9.9 ml NS BID PRN 07/03/15 12/31/20 History Allergy Relief] nitroglycerin [Nitrostat] 0.4 mg BUCCAL PRN PRN tab-cap 07/03/15 12/31/20 History pyridoxine (vitamin B6) [Vitamin 50 mg PO DAILY 07/03/15 12/31/20 History B-6] rosuvastatin [Crestor] 40 mg PO HS 07/03/15 12/31/20 History bupropion HCl 150 mg 24 hr tablet, 150 mg PO QAM 08/23/18 12/31/20 History extended release tamsulosin 0.4 mg capsule 0.4 mg PO DAILY 08/23/18 12/31/20 History Saccharomyces boulardii 250 mg PO DAILY 03/05/19 12/08/20 History cholecalciferol (vitamin D3) 2,000 unit PO DAILY 03/05/19 12/31/20 History [Vitamin D3] leflunomide 20 mg PO DAILY 03/05/19 12/31/20 History liothyronine [Cytomel] 5 mcg PO DAILY 03/05/19 12/25/20 History Levemir FlexTouch U-100 Insuln See Rx Instructions .ROUTE .COMPLEX 04/11/20 12/31/20 History methylprednisolone 4 mg PO DAILY 04/11/20 12/25/20 History pantoprazole 40 mg tablet,delayed 40 mg PO DAILY #30 tab 05/16/20 12/31/20 Rx release Entyvio 300 mg IV DIRECTED 11/17/20 12/25/20 History albuterol sulfate [ProAir HFA] 2 puff INHALATION Q4H PRN PRN 11/17/20 12/31/20 History irbesartan 300 mg PO DAILY 11/17/20 12/31/20 History sertraline 200 mg PO DAILY 11/17/20 12/31/20 History spironolactone 50 mg PO DAILY 11/17/20 12/31/20 History Pentasa 1,000 mg PO TID 12/07/20 12/31/20 History Restasis 1 drp OPHTHALMIC (EYE) BID 12/07/20 12/25/20 History buprenorphine 1 patch TRANSDERMAL QWEEK 12/07/20 12/31/20 History insulin lispro [Humalog KwikPen unit SUBCUT 12/07/20 History Insulin] levothyroxine 175 mcg PO DAILY@0600 12/07/20 12/31/20 History mirtazapine 7.5 mg PO QHS 12/07/20 12/31/20 History oxycodone 10 mg PO TID PRN 12/07/20 12/31/20 History ropinirole 1 mg PO QHS 12/07/20 12/31/20 History Rasuvo (PF) 20 mg SUBCUT Q7D 12/08/20 12/08/20 History alendronate 70 mg PO QWEEK 12/08/20 12/31/20 History gabapentin 400 mg PO BID 12/08/20 12/31/20 History dabigatran etexilate [Pradaxa] 150 mg PO BID #60 cap 12/09/20 12/31/20 Rx enoxaparin [Lovenox] 100 mg SUBCUT Q12H #10 ml 12/09/20 Rx levofloxacin 750 mg PO QAM #5 tab 12/09/20 12/31/20 Rx Saccharomyces boulardii [Digest 250 mg PO DAILY 12/25/20 12/25/20 History Probiotic (S.boulardii)] albuterol sulfate 2.5 mg INHALATION Q2H PRN PRN 12/25/20 12/25/20 History buprenorphine [Butrans] See Rx Instructions .ROUTE .COMPLEX 12/25/20 12/25/20 History ipratropium-albuterol 3 ml INHALATION Q6H PRN PRN 12/25/20 12/31/20 History methotrexate (PF) See Rx Instructions .ROUTE .COMPLEX 12/25/20 12/25/20 History ropinirole 1 mg PO HS 12/25/20 12/25/20 History Exam Const General: cooperative, ill appearing and not lethargic Orientation: alert, awake and oriented x3 Neck Neck: normal visual inspection and no lymphadenopathy Thyroid: thyroid normal Chest Chest: normal inspection of the chest Resp Effort & Inspection: normal respiratory effort and able to speak in complete sentences Auscultation: clear to auscultation bilaterally, no rales and no rhonchi Cardio Jugular venous pressure: no JVD Rate: regular rate Rhythm: regular rhythm Heart Sounds: S1 normal, S2 normal, no click and no gallops GI Inspection: normal to inspection Palpation: no hepatosplenomegaly and nontender Percussion: normal to percussion Skin General skin exam: no rashes or lesions noted Neuro Motor: muscle tone normal throughout Extrem General: no edema Other: Multiple ecchymotic areas over both arms. Results Labs Result diagrams: 12/31/20 18:55 12/31/20 18:55 Labs: Laboratory Results - last 24 hr 12/31/20 12/31/20 12/31/20 18:55 18:55 18:55 WBC 13.08 H RBC 3.26 L Hgb 9.3 L Hct 30.6 L MCV 93.9 MCH 28.5 MCHC 30.4 L RDW 18.8 H Plt Count 292 MPV 10.1 Immature Gran % 0.8 Neutrophils % 83.4 Lymphocytes % 7.6 Monocytes % 6.9 Eosinophils % 1.2 Basophils % 0.1 Nucleated RBC % 0 Absolute Neutrophils 10.91 H Absolute Lymphocytes 0.99 L Absolute Monocytes 0.90 H Absolute Eosinophils 0.16 Absolute Basophils 0.01 PT INR APTT Sodium 133 L Potassium 5.1 Chloride 97 L Carbon Dioxide 24.1 Anion Gap 11.9 H BUN 34 H Creatinine 2.5 H Estimated GFR/1.73 m2 25.24 Glucose 216 H Calcium 8.8 Magnesium 1.7 L Total Bilirubin 0.8 AST 24 ALT 19 Alkaline Phosphatase 80 Creatine Kinase Troponin I < 0.05 NT-Pro-B Natriuret Pep Total Protein 7.7 Albumin 2.8 L TSH 7.90 H Urine Color Urine Clarity Urine pH Ur Specific [place] Urine Protein Urine Ketones Urine Blood Urine Nitrite Urine Bilirubin Urine Urobilinogen Ur Leukocyte Esterase Urine RBC Urine WBC Ur Epithelial Cells Urine Crystals Urine Bacteria Urine Casts Urine Mucus Ur Culture Indicated? Urine Glucose COVID-19 Source SARS-CoV-2 (PCR) 12/31/20 12/31/20 12/31/20 18:55 18:55 18:55 WBC RBC Hgb Hct MCV MCH MCHC RDW Plt Count MPV Immature Gran % Neutrophils % Lymphocytes % Monocytes % Eosinophils % Basophils % Nucleated RBC % Absolute Neutrophils Absolute Lymphocytes Absolute Monocytes Absolute Eosinophils Absolute Basophils PT 14.1 H INR 1.4 H APTT 37.0 H Sodium Potassium Chloride Carbon Dioxide Anion Gap BUN Creatinine Estimated GFR/1.73 m2 Glucose Calcium Magnesium Total Bilirubin AST ALT Alkaline Phosphatase Creatine Kinase 95 Troponin I NT-Pro-B Natriuret Pep 739 H Total Protein Albumin TSH Urine Color Urine Clarity Urine pH Ur Specific [place] Urine Protein Urine Ketones Urine Blood Urine Nitrite Urine Bilirubin Urine Urobilinogen Ur Leukocyte Esterase Urine RBC Urine WBC Ur Epithelial Cells Urine Crystals Urine Bacteria Urine Casts Urine Mucus Ur Culture Indicated? Urine Glucose COVID-19 Source SARS-CoV-2 (PCR) 12/31/20 12/31/20 12/31/20 19:55 20:40 20:50 WBC RBC Hgb Hct MCV MCH MCHC RDW Plt Count MPV Immature Gran % Neutrophils % Lymphocytes % Monocytes % Eosinophils % Basophils % Nucleated RBC % Absolute Neutrophils Absolute Lymphocytes Absolute Monocytes Absolute Eosinophils Absolute Basophils PT INR APTT Sodium Potassium Chloride Carbon Dioxide Anion Gap BUN Creatinine Estimated GFR/1.73 m2 Glucose Calcium Magnesium Total Bilirubin AST ALT Alkaline Phosphatase Creatine Kinase Troponin I NT-Pro-B Natriuret Pep Total Protein Albumin TSH Urine Color Serene Yellow Urine Clarity Sl Cloudy Clear Urine pH 5.5 5.5 Ur Specific [place] >= 1.030 H 1.025 Urine Protein 30 H Negative Urine Ketones Negative Negative Urine Blood Large H Negative Urine Nitrite Negative Negative Urine Bilirubin Small H Negative Urine Urobilinogen 0.2 0.2 Ur Leukocyte Esterase Negative Negative Urine RBC >50 H Urine WBC 10-20 H Ur Epithelial Cells Moderate Urine Crystals Negative Urine Bacteria Moderate Urine Casts 5-10 Hyaline Urine Mucus Negative Ur Culture Indicated? Yes Urine Glucose Negative Negative COVID-19 Source Nasal/Nares SARS-CoV-2 (PCR) Negative 12/31/20 22:00 WBC RBC Hgb Hct MCV MCH MCHC RDW Plt Count MPV Immature Gran % Neutrophils % Lymphocytes % Monocytes % Eosinophils % Basophils % Nucleated RBC % Absolute Neutrophils Absolute Lymphocytes Absolute Monocytes Absolute Eosinophils Absolute Basophils PT INR APTT Sodium Potassium Chloride Carbon Dioxide Anion Gap BUN Creatinine Estimated GFR/1.73 m2 Glucose Calcium Magnesium Total Bilirubin AST ALT Alkaline Phosphatase Creatine Kinase Troponin I < 0.05 NT-Pro-B Natriuret Pep Total Protein Albumin TSH Urine Color Urine Clarity Urine pH Ur Specific [place] Urine Protein Urine Ketones Urine Blood Urine Nitrite Urine Bilirubin Urine Urobilinogen Ur Leukocyte Esterase Urine RBC Urine WBC Ur Epithelial Cells Urine Crystals Urine Bacteria Urine Casts Urine Mucus Ur Culture Indicated? Urine Glucose COVID-19 Source SARS-CoV-2 (PCR) Last Vital Signs Temp 36.5 C 08/25/21 22:05 Pulse 94 H 12/31/20 22:05 Resp 14 12/31/20 22:05 BP 116/93 H 12/31/20 22:05 Pulse Ox 92 12/31/20 22:05
[2021-01-01] VITALS (13 sets, daily range): BP systolic 99–111; BP diastolic 60–69; PULSE 67–106; RESP 14–20; TEMP 36.5–37.6; O2SAT 84–100
--- NOTE | 2021-01-01 | DI.US_ITS ---
Exam(s) US RENAL EXAM: US RENAL CLINICAL HISTORY: renal insuff, acute TECHNIQUE: Ultrasound of both kidneys performed using standard protocol. COMPARISON: CT CT RENAL COLIC WO from 12/25/2020 US US SCROTUM from 12/25/[address] RENAL COLIC WO from 12/25/2020 FINDINGS: KIDNEYS: Both kidneys measure approximately 10.8 cm. Both kidneys exhibit normal cortical thickness and corticomedullary differentiation. No cysts nor masses nor obvious calculi evident in either kidn ey. No hydronephrosis. No perinephric fluid. URINARY BLADDER: Prevoid volume is 286 cc. Apparently the patient was not able to void. There is a 5 cm diameter cystic structure seen adjacent to the right side of the urinary bladder whic h is a reservoir for penile implant, as evident on recent CT scans. No obvious bladder mass nor. Ureterovesical jets: Not observed IMPRESSION: 1. No significant ultrasound findings in the kidneys. 2. Right perivesicular reservoir for penile implant. 3. Apart from the urinary bladder lumen and reservoir there was no free fluid evident nor additional fluid collection, particularly given the findings on the recent CT scan of 12/25/2020. Findings on that CT scan might be best followed with an additional repeat CT scan if clinically indicated. Sign [facility] DATA REPOSITORY:
[2021-01-01] MEDS: rOPINIRole 1 MG TAB PO ×2 (01:59→22:52)
[2021-01-01] MEDS: Acetaminophen 325 MG TAB 500 MG PO ×2 (02:04→22:52)
[2021-01-01] MEDS: Mirtazapine 15 MG TAB 7.5 MG PO ×2 (02:06→22:54)
[2021-01-01] MEDS: Lactated Ringers 1,000 ML 100 ML IV ×2 (02:21→13:53)
[2021-01-01] MEDS: Levothyroxine 175 MCG TAB PO (06:08)
[2021-01-01 06:56] LABS: Abs Immature Grans 0.08 10^3/uL (0.0-0.06); Absolute Basophil Count 0.01 10^3/uL (0.0-0.2); Absolute Eosinophil Count 0.21 10^3/uL (0.0-0.7); Absolute Lymphocyte Count 1.55 10^3/uL (1.2-3.4); Absolute Monocyte Count 0.84 10^3/uL (0.1-0.8); Basophils % 0.1; Eosinophils % 2.5; HCT 24.5 % (40.0-50.0); HGB 7.5 g/dL (13.5-17.5); Immature Grans % 0.9; Lymphocytes % 18.3; MCHC 30.6 % (32.0-36.0); MCV 94.6 fL (80-95); Monocytes % 9.9; Neutrophils % 68.3; Nucleated RBC 0 %; Platelet Count 243 10^3/uL (130-400); RBC 2.59 10^6/uL (4.36-5.78); RDW 18.6 % (11.8-14.1); WBC 8.49 10^3/uL (4.4-10.8)
[2021-01-01 07:32] LABS: BUN 36 mg/dL (7-18); CREATININE 2.2 mg/dL (0.70-1.30); Calcium 7.7 mg/dL (8.5-10.1); Chloride 100 mmol/L (98-107); Estimated GFR 29.25 (mL/min/1.73m2); Glucose 158 mg/dL (74-106); Magnesium 1.6 mg/dL (1.8-2.4); Potassium 4.3 mmol/L (3.5-5.1); Sodium 133 mmol/L (136-145)
[2021-01-01 07:38] LABS: Diff Comment Diff Reviewed; Hypochromasia 2+
[2021-01-01] MEDS: Tamsulosin 0.4 MG CAPCR PO (08:16)
[2021-01-01] MEDS: Sertraline 50 MG TAB 200 MG PO (08:16)
[2021-01-01] MEDS: Gabapentin 400 MG CAP PO ×2 (08:17→19:57)
[2021-01-01] MEDS: Cholecalciferol (Vitamin D3) 1,000 UNIT TAB 2000 UNITS PO (08:17)
[2021-01-01] MEDS: Folic Acid 1 MG TAB PO (08:18)
[2021-01-01] MEDS: methylPREDNISolone 4 MG TAB PO (08:18)
[2021-01-01] MEDS: buPROPion-XL 150 MG TABCR PO (08:18)
[2021-01-01] MEDS: Finasteride 5 MG TAB PO (08:19)
[2021-01-01] MEDS: Lactobacillus Acidophilus CAP 1 CAP PO (08:19)
[2021-01-01] MEDS: Pantoprazole 40 MG TABCR PO (08:19)
--- NOTE | 2021-01-01 09:31 | INITIAL_ITS ---
- If Service Date Differs Date of service: 01/01/21 Time of Service: 09:31 Care Management Initial Assess REASON FOR HOSPITALIZATION:: PRISCILLA, weakness, UTI PAST MEDICAL HISTORY/PAST SURGICAL HISTORY:: Adrenal insufficiency. Benign prostatic hyperplasia (07/03/15). Coronary artery disease. Crohns disease. Diabetes mellitus, type II, insulin dependent. DVT (deep venous thrombosis). 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 GERD (gastroesophageal reflux disease). GI bleed. Graves disease. Hyperlipidemia. Hypertension. Hypothyroidism. Obstructive sleep apnea. Peripheral neuropathy. Rheumatoid arthritis. Sensorineural hearing loss, bilateral (01/28/15). Stroke. 2018. Traumatic compression fracture of T12 thoracic vertebra. Vitamin B12 deficiency. Vitamin B6 deficiency. Vitamin D deficiency. Graves' eye disease. s/p surgery. H/O lumbosacral spine surgery. Prosthesis, Penile implant PREVIOUS FUNCTIONAL STATUS/SOCIAL/FAMILY SUPPORTS:: Miguel resides with his , Nohemi, in [place], [place]. Miguel is a retired [employer] who has had difficulty ambulating for several months now. His works during the day, Tuesday through Tuesday, and patient is left alone at home. 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 ADVANCE DIRECTIVES:: Nohemi as agent. Bette as alternate. Has patient been provided with info about the portal/API?: Yes Did the patient sign up for the portal?: Yes (Previously) CODE STATUS:: Full Code INSURANCE COVERAGE / FINANCIAL ISSUES:: Medicare. AARP. Medicaid CURRENT HOME/COMMUNITY SERVICES/EQUIPMENT:: CPAP/BIPAP? 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 PRIMARY CARE PHYSICIAN:: Korin Florian MD POTENTIAL DISCHARGE NEEDS:: Coordinated return home with resumption of services. PATIENT/FAMILY EDUCATION NEEDS:: Review of discharge instructions, limitations, including Ask Me Three. ANTICIPATED BARRIERS TO DISCHARGE:: None identified at this time. TRANSPORTATION:: To be determined by disposition and mobility. PLAN:: Miguel will continue to be closely monitored and treated at this time. [facility] called and reported Nohemi was requesting RN to be added to orders upon discharge. CM continues to follow.
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
--- NOTE | 2021-01-01 12:11 | PGE_ITS ---
Date of Service Date of service: 01/01/21 Time of Service: 12:11 Assessment and Plan Assessment and plan (1) UTI (urinary tract infection): Status: Acute Qualifiers: Hematuria presence: with hematuria Urinary tract infection type: acute cystitis Qualified Code(s): N30.01 - Acute cystitis with hematuria (2) PRISCILLA (acute kidney injury): Status: Acute Assessment and plan: creatinine improved after some IV fluids. will avoid nephrotoxic drugs, renal dosing, continue gentle IV hydration (3) Adrenal insufficiency: Status: Acute Assessment and plan: will give stress dose steroids. continue home oral dosing (4) Hypothyroidism: Status: Chronic Assessment and plan: TSH 7.9 on december 31, down from 43 on dec 07. continue synthryoid and recheck in 4 weeks. Qualifiers: Hypothyroidism type: postoperative Qualified Code(s): E89.0 - Postprocedural hypothyroidism (5) Ambulatory dysfunction: Status: Acute Assessment and plan: PT/OT (6) DVT prophylaxis: Status: Acute (7) Discharge planning issues: Status: Acute Assessment and plan: case management following. anticipate swing level discharge vs home with services discussed with DR Ro. Subjective Subjective Patient reports: no new complaints, tolerating liquids well and afebrile Exam Const General: cooperative, frail appearing and ill appearing chronically Nutritional Appearance: overweight Orientation: alert and awake [facility] Head: normal to inspection, normocephalic and atraumatic Mouth: oral mucosae normal Resp Effort & Inspection: normal respiratory effort Auscultation: clear to auscultation bilaterally Cardio Rate: regular rate Rhythm: regular rhythm GI Inspection: normal to inspection Palpation: soft Auscultation: normal bowel sounds Neuro General: patient alert and patient awake Extrem General: normal to inspection and full ROM Objective Last Vital Signs Temp 37.4 C 01/01/21 07:54 Pulse 97 H 01/01/21 07:54 Resp 14 01/01/21 07:54 BP 99/60 L 01/01/21 07:54 Pulse Ox 96 01/01/21 07:54 Laboratory Results - last 24 hr 12/31/20 12/31/20 12/31/20 18:55 18:55 18:55 WBC 13.08 H RBC 3.26 L Hgb 9.3 L Hct 30.6 L MCV 93.9 MCH 28.5 MCHC 30.4 L RDW 18.8 H Plt Count 292 MPV 10.1 Immature Gran % 0.8 Neutrophils % 83.4 Lymphocytes % 7.6 Monocytes % 6.9 Eosinophils % 1.2 Basophils % 0.1 Nucleated RBC % 0 Absolute Neutrophils 10.91 H Absolute Lymphocytes 0.99 L Absolute Monocytes 0.90 H Absolute Eosinophils 0.16 Absolute Basophils 0.01 RBC Morphology Hypochromasia PT INR APTT Sodium 133 L Potassium 5.1 Chloride 97 L Carbon Dioxide 24.1 Anion Gap 11.9 H BUN 34 H Creatinine 2.5 H Estimated GFR/1.73 m2 25.24 Glucose 216 H Calcium 8.8 Magnesium 1.7 L Total Bilirubin 0.8 AST 24 ALT 19 Alkaline Phosphatase 80 Creatine Kinase Troponin I < 0.05 NT-Pro-B Natriuret Pep Total Protein 7.7 Albumin 2.8 L TSH 7.90 H Urine Color Urine Clarity Urine pH Ur Specific [place] Urine Protein Urine Ketones Urine Blood Urine Nitrite Urine Bilirubin Urine Urobilinogen Ur Leukocyte Esterase Urine RBC Urine WBC Ur Epithelial Cells Urine Crystals Urine Bacteria Urine Casts Urine Mucus Ur Culture Indicated? Urine Glucose COVID-19 Source SARS-CoV-2 (PCR) 12/31/20 12/31/20 12/31/20 18:55 18:55 18:55 WBC RBC Hgb Hct MCV MCH MCHC RDW Plt Count MPV Immature Gran % Neutrophils % Lymphocytes % Monocytes % Eosinophils % Basophils % Nucleated RBC % Absolute Neutrophils Absolute Lymphocytes Absolute Monocytes Absolute Eosinophils Absolute Basophils RBC Morphology Hypochromasia PT 14.1 H INR 1.4 H APTT 37.0 H Sodium Potassium Chloride Carbon Dioxide Anion Gap BUN Creatinine Estimated GFR/1.73 m2 Glucose Calcium Magnesium Total Bilirubin AST ALT Alkaline Phosphatase Creatine Kinase 95 Troponin I NT-Pro-B Natriuret Pep 739 H Total Protein Albumin TSH Urine Color Urine Clarity Urine pH Ur Specific [place] Urine Protein Urine Ketones Urine Blood Urine Nitrite Urine Bilirubin Urine Urobilinogen Ur Leukocyte Esterase Urine RBC Urine WBC Ur Epithelial Cells Urine Crystals Urine Bacteria Urine Casts Urine Mucus Ur Culture Indicated? Urine Glucose COVID-19 Source SARS-CoV-2 (PCR) 12/31/20 12/31/20 12/31/20 19:55 20:40 20:50 WBC RBC Hgb Hct MCV MCH MCHC RDW Plt Count MPV Immature Gran % Neutrophils % Lymphocytes % Monocytes % Eosinophils % Basophils % Nucleated RBC % Absolute Neutrophils Absolute Lymphocytes Absolute Monocytes Absolute Eosinophils Absolute Basophils RBC Morphology Hypochromasia PT INR APTT Sodium Potassium Chloride Carbon Dioxide Anion Gap BUN Creatinine Estimated GFR/1.73 m2 Glucose Calcium Magnesium Total Bilirubin AST ALT Alkaline Phosphatase Creatine Kinase Troponin I NT-Pro-B Natriuret Pep Total Protein Albumin TSH Urine Color Serene Yellow Urine Clarity Sl Cloudy Clear Urine pH 5.5 5.5 Ur Specific [place] >= 1.030 H 1.025 Urine Protein 30 H Negative Urine Ketones Negative Negative Urine Blood Large H Negative Urine Nitrite Negative Negative Urine Bilirubin Small H Negative Urine Urobilinogen 0.2 0.2 Ur Leukocyte Esterase Negative Negative Urine RBC >50 H Urine WBC 10-20 H Ur Epithelial Cells Moderate Urine Crystals Negative Urine Bacteria Moderate Urine Casts 5-10 Hyaline Urine Mucus Negative Ur Culture Indicated? Yes Urine Glucose Negative Negative COVID-19 Source Nasal/Nares SARS-CoV-2 (PCR) Negative 12/31/20 01/01/21 01/01/21 22:00 06:44 06:44 WBC RBC Hgb Hct MCV MCH MCHC RDW Plt Count MPV Immature Gran % Neutrophils % Lymphocytes % Monocytes % Eosinophils % Basophils % Nucleated RBC % Absolute Neutrophils Absolute Lymphocytes Absolute Monocytes Absolute Eosinophils Absolute Basophils RBC Morphology Hypochromasia PT INR APTT Sodium 133 L Potassium 4.3 Chloride 100 Carbon Dioxide 24.0 Anion Gap 9.0 BUN 36 H Creatinine 2.2 H Estimated GFR/1.73 m2 29.25 Glucose 158 H Calcium 7.7 L Magnesium 1.6 L Total Bilirubin AST ALT Alkaline Phosphatase Creatine Kinase Troponin I < 0.05 NT-Pro-B Natriuret Pep Total Protein Albumin TSH Urine Color Urine Clarity Urine pH Ur Specific [place] Urine Protein Urine Ketones Urine Blood Urine Nitrite Urine Bilirubin Urine Urobilinogen Ur Leukocyte Esterase Urine RBC Urine WBC Ur Epithelial Cells Urine Crystals Urine Bacteria Urine Casts Urine Mucus Ur Culture Indicated? Urine Glucose COVID-19 Source SARS-CoV-2 (PCR) 01/01/21 06:44 WBC 8.49 D RBC 2.59 L Hgb 7.5 L Hct 24.5 L MCV 94.6 MCH 29.0 MCHC 30.6 L RDW 18.6 H Plt Count 243 MPV 10.0 Immature Gran % 0.9 Neutrophils % 68.3 Lymphocytes % 18.3 Monocytes % 9.9 Eosinophils % 2.5 Basophils % 0.1 Nucleated RBC % 0 Absolute Neutrophils 5.80 Absolute Lymphocytes 1.55 Absolute Monocytes 0.84 H Absolute Eosinophils 0.21 Absolute Basophils 0.01 RBC Morphology See Below Hypochromasia 2+ PT INR APTT Sodium Potassium Chloride Carbon Dioxide Anion Gap BUN Creatinine Estimated GFR/1.73 m2 Glucose Calcium Magnesium Total Bilirubin AST ALT Alkaline Phosphatase Creatine Kinase Troponin I NT-Pro-B Natriuret Pep Total Protein Albumin TSH Urine Color Urine Clarity Urine pH Ur Specific [place] Urine Protein Urine Ketones Urine Blood Urine Nitrite Urine Bilirubin Urine Urobilinogen Ur Leukocyte Esterase Urine RBC Urine WBC Ur Epithelial Cells Urine Crystals Urine Bacteria Urine Casts Urine Mucus Ur Culture Indicated? Urine Glucose COVID-19 Source SARS-CoV-2 (PCR)
[2021-01-01] MEDS: Insulin Aspart 300 UNITS/3 ML PEN SC (13:09)
[2021-01-01] MEDS: oxyCODONE 10 MG TAB PO (15:25)
[2021-01-01] MEDS: Hydrocortisone SOD SUC. 100 MG VIAL 50 MG IVP ×2 (16:03→22:47)
[2021-01-01] MEDS: Normal Saline Flush 10 ML SYR (16:07)
[2021-01-01] MEDS: ROSUVASTATIN 20 MG TAB 40 MG PO (22:54)
[2021-01-01] MEDS: cefTRIAXone 1 GM/50 ML BAG IVPB (22:55)
[2021-01-01] MEDS: Normal Saline Flush 10 ML SYR IVP (22:56)
[2021-01-02] VITALS (7 sets, daily range): BP systolic 115–130; BP diastolic 65–73; PULSE 64–78; RESP 16–18; TEMP 36.3–36.7; O2SAT 96–100
[2021-01-02] MEDS: Lactated Ringers 1,000 ML 100 ML IV ×3 (01:58→23:04)
[2021-01-02] MEDS: Hydrocortisone SOD SUC. 100 MG VIAL 50 MG IVP ×2 (04:45→10:33)
[2021-01-02] MEDS: Normal Saline Flush 10 ML SYR IVP ×2 (04:46→23:04)
[2021-01-02] MEDS: Levothyroxine 175 MCG TAB PO (06:47)
[2021-01-02 06:56] LABS: Abs Immature Grans 0.06 10^3/uL (0.0-0.06); Absolute Eosinophil Count 0.01 10^3/uL (0.0-0.7); Absolute Lymphocyte Count 0.76 10^3/uL (1.2-3.4); Absolute Monocyte Count 0.47 10^3/uL (0.1-0.8); Absolute Neutrophil Count 9.29 10^3/uL (1.2-6.7); Eosinophils % 0.1; HGB 7.4 g/dL (13.5-17.5); Immature Grans % 0.6; Lymphocytes % 7.2; MCH 28.9 pg (27.0-33.0); MCHC 30.8 % (32.0-36.0); MCV 93.8 fL (80-95); MPV 10.2 fL (8.0-11.0); Monocytes % 4.4; Neutrophils % 87.7; Nucleated RBC 0 %; Platelet Count 244 10^3/uL (130-400); RBC 2.56 10^6/uL (4.36-5.78); RDW 18.4 % (11.8-14.1); RDW-SD 63.1 fL; WBC 10.59 10^3/uL (4.4-10.8)
[2021-01-02] MEDS: buPROPion-XL 150 MG TABCR PO (08:12)
[2021-01-02] MEDS: Sertraline 50 MG TAB 200 MG PO (08:12)
[2021-01-02] MEDS: methylPREDNISolone 4 MG TAB PO (08:12)
[2021-01-02] MEDS: Folic Acid 1 MG TAB PO (08:13)
[2021-01-02] MEDS: Gabapentin 400 MG CAP PO ×2 (08:13→20:07)
[2021-01-02] MEDS: Lactobacillus Acidophilus CAP 1 CAP PO (08:13)
[2021-01-02] MEDS: Pantoprazole 40 MG TABCR PO (08:13)
[2021-01-02] MEDS: Finasteride 5 MG TAB PO (08:13)
[2021-01-02] MEDS: Cholecalciferol (Vitamin D3) 1,000 UNIT TAB 2000 UNITS PO (08:14)
[2021-01-02] MEDS: Tamsulosin 0.4 MG CAPCR PO (08:14)
[2021-01-02 08:15] LABS: ALT 31 U/L (16-63); AST 55 U/L (15-37); Albumin 2.4 g/dL (3.4-5.0); Alkaline Phosphatase 67 U/L (46-116); Anion Gap 9.6 mmol/L (3-11); BUN 36 mg/dL (7-18); Bilirubin, Total 0.3 mg/dL (0.2-1.0); CO2 23.4 mmol/L (21.0-32.0); CREATININE 2.1 mg/dL (0.70-1.30); Calcium 8.7 mg/dL (8.5-10.1); Chloride 102 mmol/L (98-107); Estimated GFR 30.86 (mL/min/1.73m2); Glucose 147 mg/dL (74-106); Potassium 5.1 mmol/L (3.5-5.1); Sodium 135 mmol/L (136-145); Total Protein 6.7 g/dL (6.4-8.2)
[2021-01-02] MEDS: Insulin Aspart 300 UNITS/3 ML PEN SC ×3 (08:15→17:11)
[2021-01-02] MEDS: Acetaminophen 325 MG TAB 500 MG PO (10:47)
[2021-01-02] MEDS: methylPREDNISolone 4 MG TAB 10 MG PO (10:47)
[2021-01-02] MEDS: Diclofenac 1% Gel 100 GM TUBE TP ×2 (12:14→20:08)
--- NOTE | 2021-01-02 14:54 | W.INDIABCONS ---
Date of service: 01/02/21 Time of Service: 14:54 Diabetes Inpatient Consult DESCRIPTION/ASSESSMENT: 75 year old male admitted with UTI with PRISCILLA, frequent falls with long hx of poorly controlled DM, CVA, HTN. Following Dm diet with excellent intake. Per medical notes, will d/c to SNF. Education not warranted at this time. PLAN: Will continue to monitor po intake, labs and weight Time Spent in Nutritional Counseling and Treatment: 0
--- NOTE | 2021-01-02 15:59 | UCONE_ITS ---
Date of service: 01/02/21 Time of Service: 16:13 Assessment and Plan Assessment and plan (1) UTI (urinary tract infection): Status: Acute Assessment and plan: UTIs can be associated with CIC but CIC is still preferred over an indwelling catheter given the much higher risk of infection/urosepsis with indwelling catheters. The patient is known to have incomplete bladder empting for the past year and admits to me that he does not always perform CIC as directed. I don't have any compelling reason to increase the frequency of CIC just yet. Instead, I would ask for the twice daily CIC to continue and that we monitor the catheterized volumes. If his catheterized volumes are higher than his baseline of 200 to 300 cc, we probably should increase his catheterized frequency to TID. I would not favor a prophylactic antibiotic for this gentleman. He has had appropriate imaging studies and a cystoscopy within the past year, so I do not believe he needs a dedicated hematuria workup at this time. Qualifiers: Urinary tract infection type: acute cystitis Hematuria presence: with hematuria Qualified Code(s): N30.01 - Acute cystitis with hematuria (2) Hematuria: Status: Acute History of Present Illness Narrative: This is a 75-year-old gentleman who is under the care of the urology department at [facility]. He last had a telehealth visit with Dr. Montes De Oca in August of this year. He is due for a follow-up visit in February. I have been asked to see him for recurrent urinary tract infections and voiding symptoms. The patient is quite confused at this point (he tells me that he has been in the hospital for the past 4 to 5 weeks) so I am not sure how accurate his history might be. Most of his historical information is obtained from the [facility] EMR. He has a history of an overactive bladder. He underwent urodynamic studies in July 2016. Urodynamics confirmed severe detrusor overactivity. He failed behavioral modification and medications. He then underwent a transurethral injection of Botox into the detrusor in November 2016. He had good effects from the Botox, but when those effects wore off, he had a repeat Botox injection in November 2019. Again, his overactive bladder symptoms improved but he had more difficulty emptying his bladder. His PVR was @ 200 to 300 cc. He was started on CIC twice a day in January 2020 with reported catheterized volumes of 200 to 300 cc. He is now admitted with weakness, frequent falls, a reported UTI and hematuria. He does recall that he has had gross hematuria on admission, but tells me the urine is clear as of this morning. He is not sure if he has any pain with voiding. He describes left leg pain and he thinks some of his discomfort may be related to the leg rather than his urinary tract. He does recall that he is supposed to catheterize twice a day, but he tells me that he is not always able to recover remember to catheterize. He can not tell me what volume of urine he typically gets with catheterization. He does mention that it can be uncomfortable to catheterize. He does not recall frequent UTIs in the past. I do not find evidence of posi tive urine cultures in [facility] records. Review of Systems Unobtainable due to mental status [facility] Medical History Adrenal insufficiency Benign prostatic hyperplasia (07/03/15) Coronary artery disease Crohns disease Diabetes mellitus, type II, insulin dependent DVT (deep venous thrombosis) Erectile dysfunction of organic origin (07/03/15) Frequent falls GERD (gastroesophageal reflux disease) GI bleed Graves disease Hyperlipidemia Hypertension Hypothyroidism Obstructive sleep apnea Peripheral neuropathy Rheumatoid arthritis Sensorineural hearing loss, bilateral (01/28/15) Stroke 2018 Traumatic compression fracture of T12 thoracic vertebra Vitamin B12 deficiency Vitamin B6 deficiency Vitamin D deficiency Surgical History Graves' eye disease s/p surgery H/O lumbosacral spine surgery Prosthesis, Penile implant Family History Father Asthma Sister Asthma Social History Smoking/Tobacco Use Status: Former Tobacco Use Smoking risk assessment performed?: Yes Alcohol Intake: former Substance use type: does not use Household members: spouse Number of Children: 5 current occupation: Retired [employer] What is your relationship status?: Panel score (0-1 are the most socially isolated patients): 1 Do you feel safe at home: Yes Do you feel safe in your relationship?: Yes Exam Narrative Exam Narrative: He does not appear septic or toxic. His vital signs are documented elsewhere His abdomen is soft. His bladder is not distended. There is no tenderness on palpation of his penile prosthesis components. Reviewed his urine culture results. Based on our records, he has only had 2 documented positive urine cultures. 1+ culture was in October 2019 and the second 1 was in December 2020. Both positive culture is grew Klebsiella. It appears that some of his othere cultures were obtained while he was still taking antibiotics. I reviewed his renal ultrasound on the PACS system. There is no sign of hydronephrosis.Similarly, there is no hydronephrosis on CT scan from earlier this month. There is a tiny right renal stone, but certainly no staghorn stone (aka infection stone) In reviewing his [facility] reecords, his last cystoscopy was November 2019. No bladder tumors were identified. Results Last Vital Signs Temp 36.6 C 01/02/21 15:33 Pulse 69 01/02/21 15:33 Resp 18 01/02/21 15:33 BP 121/65 01/02/21 15:33 Pulse Ox 96 01/02/21 15:33 Labs Result diagrams: 01/03/21 09:10 01/03/21 09:10 Labs: Laboratory Results - last 24 hr 01/02/21 01/02/21 01/02/21 06:50 06:50 06:50 WBC 10.59 RBC 2.56 L Hgb 7.4 L Hct 24.0 L MCV 93.8 MCH 28.9 MCHC 30.8 L RDW 18.4 H Plt Count 244 MPV 10.2 Immature Gran % 0.6 Neutrophils % 87.7 Lymphocytes % 7.2 Monocytes % 4.4 Eosinophils % 0.1 Basophils % 0.0 Nucleated RBC % 0 Absolute Neutrophils 9.29 H Absolute Lymphocytes 0.76 L Absolute Monocytes 0.47 Absolute Eosinophils 0.01 Absolute Basophils 0.00 Sodium Cancelled 135 L Potassium Cancelled 5.1 Chloride Cancelled 102 Carbon Dioxide Cancelled 23.4 Anion Gap Cancelled 9.6 BUN Cancelled 36 H Creatinine Cancelled 2.1 H Estimated GFR/1.73 m2 Cancelled 30.86 Glucose Cancelled 147 H Calcium Cancelled 8.7 Total Bilirubin Cancelled 0.3 AST Cancelled 55 H ALT Cancelled 31 Alkaline Phosphatase Cancelled 67 Total Protein Cancelled 6.7 Albumin Cancelled 2.4 L
--- NOTE | 2021-01-02 16:02 | CHAPLAIN ---
Miguel was trying to get his iPad to work right when I visited. He was focused on that. He told me that he remembered me from previous admissions, and that most recently had has accepted the fact that he Alzheimer's disease. He first began to notice this because of a change in his vision, although he said he knows that's not usual.
--- NOTE | 2021-01-02 16:23 | RESPIRATORY ---
RT spoke with pt concerning his hx of FRANCIE, pt and family confirmed that pt has not used a CPAP device for this for about 2 years and has no interest in using one.
--- NOTE | 2021-01-02 17:04 | CMPROGNOTE_ITS ---
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 Sonido's current level of functioning, medical treatments and wishes were reviewed. He acknowledged that while his preference would be to return home, he would be willing to do short term rehab at [facility] prior to returning home. A: 75 year old male admitted to [facility] 12/31/20 for PRISCILLA, weakness P: Miguel will discharge to [facility] on 01/05/21. He will transport via the facility's W/C van.
--- NOTE | 2021-01-02 18:01 | W.PM.PROGNOT ---
Date of Service Date of service: 01/02/21 Time of Service: 18:01 Assessment and Plan Assessment and plan (1) UTI (urinary tract infection): Start date: 01/02/21 Start time: 18:09 Status: Acute Assessment and plan: Ceftriaxone . Urine cx with 50,000 colonies, will d/c tomorrow as long as blood cx are no growth, u/a was negative. Qualifiers: Urinary tract infection type: acute cystitis Hematuria presence: with hematuria Qualified Code(s): N30.01 - Acute cystitis with hematuria (2) PRISCILLA (acute kidney injury): Start date: 01/02/21 Start time: 18:12 Status: Acute Assessment and plan: creatinine improved after some IV fluids. will avoid nephrotoxic drugs, renal dosing, continue gentle IV hydration (3) Adrenal insufficiency: Start date: 01/02/21 Start time: 18:12 Status: Acute Assessment and plan: After stress dose steroids, patient presented weak again likely his normal dose is now too low increase daily dose to 10 mg for now he will need follow up with rheumatology to adjust to appropriate dose but this should at least help him not feel so weak (4) Hypothyroidism: Start date: 01/02/21 Start time: 18:14 Status: Chronic Assessment and plan: TSH 7.9 on december 31, down from 43 on dec 07. continue synthryoid and recheck in 4 weeks. Qualifiers: Hypothyroidism type: postoperative Qualified Code(s): E89.0 - Postprocedural hypothyroidism (5) Ambulatory dysfunction: Start date: 01/02/21 Start time: 18:14 Status: Acute Assessment and plan: PT/OT (6) DVT prophylaxis: Start date: 01/02/21 Start time: 18:14 Status: Acute Assessment and plan: pradaxa BID (7) Discharge planning issues: Start date: 01/02/21 Start time: 18:15 Status: Acute Assessment and plan: case management following. He is agreeable to H/R on Tuesday and they have accepted him discussed with DR Ro. Subjective Subjective Patient reports: other Interval history since last seen: Patient is sitting up in bed. Not requiring oxygen. He states feeling weak. Increased his prednisone to 10 mg from 4 as he likely has adrenal insufficiency and needs f/u with his rheumatoloigist. He has agreed to go to H/R on Tuesday for a short rehab stay, Dr. Dubon consulted due to his recurrent UTI and having to cath himself BID. Urology consulted. He had renal u/s that was unremarkable. Will do bladder scans and place bernal if necessary. confused at times Exam Const General: cooperative, frail appearing, ill appearing chronically and not lethargic Nutritional Appearance: overweight Orientation: alert, awake and oriented x3 HENMT Head: normal to inspection, normocephalic and atraumatic Mouth: oral mucosae normal Neck Neck: normal visual inspection and no lymphadenopathy Thyroid: thyroid normal Chest Chest: normal inspection of the chest Resp Effort & Inspection: normal respiratory effort and able to speak in complete sentences Auscultation: clear to auscultation bilaterally, no rales and no rhonchi Cardio Jugular venous pressure: no JVD Rate: regular rate Rhythm: regular rhythm Heart Sounds: S1 normal, S2 normal, no click and no gallops GI Inspection: normal to inspection Palpation: soft, no hepatosplenomegaly and nontender Percussion: normal to percussion Auscultation: normal bowel sounds Skin General skin exam: no rashes or lesions noted Neuro General: patient alert and patient awake Motor: muscle tone normal throughout Extrem General: normal to inspection, full ROM and no edema Objective Last Vital Signs Temp 36.6 C 01/02/21 15:33 Pulse 69 01/02/21 15:33 Resp 18 01/02/21 15:33 BP 121/65 01/02/21 15:33 Pulse Ox 96 01/02/21 16:08 Laboratory Results - last 24 hr 01/02/21 01/02/21 01/02/21 06:50 06:50 06:50 WBC 10.59 RBC 2.56 L Hgb 7.4 L Hct 24.0 L MCV 93.8 MCH 28.9 MCHC 30.8 L RDW 18.4 H Plt Count 244 MPV 10.2 Immature Gran % 0.6 Neutrophils % 87.7 Lymphocytes % 7.2 Monocytes % 4.4 Eosinophils % 0.1 Basophils % 0.0 Nucleated RBC % 0 Absolute Neutrophils 9.29 H Absolute Lymphocytes 0.76 L Absolute Monocytes 0.47 Absolute Eosinophils 0.01 Absolute Basophils 0.00 Sodium Cancelled 135 L Potassium Cancelled 5.1 Chloride Cancelled 102 Carbon Dioxide Cancelled 23.4 Anion Gap Cancelled 9.6 BUN Cancelled 36 H Creatinine Cancelled 2.1 H Estimated GFR/1.73 m2 Cancelled 30.86 Glucose Cancelled 147 H Calcium Cancelled 8.7 Total Bilirubin Cancelled 0.3 AST Cancelled 55 H ALT Cancelled 31 Alkaline Phosphatase Cancelled 67 Total Protein Cancelled 6.7 Albumin Cancelled 2.4 L
[2021-01-02] MEDS: ROSUVASTATIN 20 MG TAB 40 MG PO (21:37)
[2021-01-02] MEDS: Mirtazapine 15 MG TAB 7.5 MG PO (21:38)
[2021-01-02] MEDS: rOPINIRole 1 MG TAB PO (21:40)
[2021-01-02] MEDS: cefTRIAXone 1 GM/50 ML BAG IVPB (22:00)
[2021-01-02] MEDS: Melatonin 3 MG TAB 6 MG PO (23:46)
[2021-01-03] MEDS: Levothyroxine 175 MCG TAB PO (06:14)
[2021-01-03] MEDS: Lactated Ringers 1,000 ML 100 ML IV ×2 (06:44→17:05)
[2021-01-03 07:48] VITALS: BP 107/67; PULSE 67; RESP 18; TEMP 36.4; O2SAT 94
[2021-01-03] MEDS: Cholecalciferol (Vitamin D3) 1,000 UNIT TAB 2000 UNITS PO (07:50)
[2021-01-03] MEDS: Folic Acid 1 MG TAB PO (07:51)
[2021-01-03] MEDS: Tamsulosin 0.4 MG CAPCR 0.8 MG PO (07:51)
[2021-01-03] MEDS: Pantoprazole 40 MG TABCR PO (07:51)
[2021-01-03] MEDS: Lactobacillus Acidophilus CAP 1 CAP PO (07:51)
[2021-01-03] MEDS: methylPREDNISolone 4 MG TAB 10 MG PO (07:51)
[2021-01-03] MEDS: buPROPion-XL 150 MG TABCR PO (07:52)
[2021-01-03] MEDS: Finasteride 5 MG TAB PO (07:52)
[2021-01-03] MEDS: Gabapentin 400 MG CAP PO ×2 (07:52→20:04)
[2021-01-03] MEDS: Sertraline 50 MG TAB 200 MG PO (07:52)
[2021-01-03] MEDS: Normal Saline Flush 10 ML SYR IVP (07:53)
--- NOTE | 2021-01-03 08:54 | PT.INTREAT ---
PT Notes Visit Reasons: PRISCILLA,Weakness,UTI 01/03/2021 SUBJECTIVE: Notes being sleepy. Having a hard time keeping his eyes open. Complains of LE pain. Has to sit up to go to the bathroom. OBJECTIVE: Supine to partial sit: SBA Partial sit to supine: SBA THEREX: Supine LE and UE strengthening exercise performed with good participation noted. See flow sheet. ASSESSMENT: Pt able to wake up and participate in PT after he partially sits up in bed to use urinal. He participates well with global LE strengthening in supine position. PLAN: Continue with current POC. Treatment time: [id number] Indira Tan PTA Clinic location: [facility] [place], [place]
[2021-01-03] MEDS: Diclofenac 1% Gel 100 GM TUBE TP ×3 (09:15→20:07)
[2021-01-03 09:24] LABS: Abs Immature Grans 0.05 10^3/uL (0.0-0.06); Absolute Basophil Count 0.03 10^3/uL (0.0-0.2); Absolute Eosinophil Count 0.18 10^3/uL (0.0-0.7); Absolute Lymphocyte Count 1.86 10^3/uL (1.2-3.4); Absolute Monocyte Count 0.79 10^3/uL (0.1-0.8); Absolute Neutrophil Count 9.81 10^3/uL (1.2-6.7); Basophils % 0.2; Eosinophils % 1.4; HCT 24.8 % (40.0-50.0); HGB 7.6 g/dL (13.5-17.5); Immature Grans % 0.4; Lymphocytes % 14.6; MCH 28.8 pg (27.0-33.0); MCHC 30.6 % (32.0-36.0); MCV 93.9 fL (80-95); MPV 10.1 fL (8.0-11.0); Monocytes % 6.2; Neutrophils % 77.2; Nucleated RBC 0 %; Platelet Count 339 10^3/uL (130-400); RBC 2.64 10^6/uL (4.36-5.78); RDW 18.3 % (11.8-14.1); RDW-SD 62.8 fL; WBC 12.71 10^3/uL (4.4-10.8)
[2021-01-03 09:34] LABS: Anion Gap 8.1 mmol/L (3-11); BUN 40 mg/dL (7-18); CO2 24.9 mmol/L (21.0-32.0); CREATININE 2.2 mg/dL (0.70-1.30); Calcium 8.8 mg/dL (8.5-10.1); Chloride 106 mmol/L (98-107); Estimated GFR 29.25 (mL/min/1.73m2); Glucose 82 mg/dL (74-106); Sodium 139 mmol/L (136-145)
[2021-01-03] MEDS: Docusate Sodium 100 MG CAP PO ×2 (09:40→20:05)
[2021-01-03] MEDS: Senna TAB 1 TAB PO ×2 (09:40→20:05)
[2021-01-03] MEDS: Bisacodyl 10 MG SUPP PR (09:40)
[2021-01-03] MEDS: Insulin Aspart 300 UNITS/3 ML PEN SC (11:53)
--- NOTE | 2021-01-03 15:21 | PGE_ITS ---
Date of Service Date of service: 01/03/21 Time of Service: 15:21 Assessment and Plan Assessment and plan (1) UTI (urinary tract infection): Start date: 01/03/21 Start time: 15:51 Status: Ruled-out Assessment and plan: D/c ceftriaxone Urine cx with normal hawa blood cultures NGTD Qualifiers: Urinary tract infection type: acute cystitis Hematuria presence: with hematuria Qualified Code(s): N30.01 - Acute cystitis with hematuria (2) PRISCILLA (acute kidney injury): Start date: 01/03/21 Start time: 15:52 Status: Acute Assessment and plan: Same at 2.2, continue fluids another day. Monitor creatinine (3) Adrenal insufficiency: Start date: 01/03/21 Start time: 15:56 Status: Acute Assessment and plan: feeling much better today, able to participate better today. will continue 10 mg prednisone until discharge then decrease to 7.5 mg. Patient should continue this dose and follow up with rhuem and endocrinology (4) Hypothyroidism: Start date: 01/03/21 Start time: 15:57 Status: Chronic Assessment and plan: TSH 7.9 on december 31, down from 43 on dec 07. continue synthryoid and recheck in 4 weeks. Qualifiers: Hypothyroidism type: postoperative Qualified Code(s): E89.0 - Postprocedural hypothyroidism (5) Ambulatory dysfunction: Start date: 01/03/21 Start time: 15:58 Status: Acute Assessment and plan: PT/OT (6) DVT prophylaxis: Start date: 01/03/21 Start time: 15:58 Status: Acute Assessment and plan: pradaxa BID (7) Discharge planning issues: Start date: 01/03/21 Start time: 15:58 Status: Acute Assessment and plan: case management following. He is agreeable to H/R on Tuesday and they have accepted him discussed with DR Reed Subjective Subjective Patient reports: no new complaints and feels better Interval history since last seen: Patient feeling much better likely due to the increase in steroids. He was able to participate in morning routine without any difficulty. Will give him couple days of 10 mg prednisone then decrease to 7.5 mg his normal dose is 4 mg but it seems as though every time he goes back to this dose he gets weak, this is his 3rd admission within the last month, every time he is admitted it is due to ambulatory dysfunction when he is weaned down from his prednisone and placed back on baseline. I presume this means he needs to go up on his prednisone as his body has adjusted to the current 4 mg dose. His dose was increased to 10 mg at this time. He is agreeable to H/R for Tuesday, they have accepted him. With the increase in dosing and H/R he should do well. He has not seen his [facility] in a year he needs to follow up with them and his states that his sugars have been all over the place which indicates adrenal insufficiency. He should also follow up with endocrinology and urology on discharge. Ceftriaxone dcd, as patient did not have UTI, continue to work with PT. Denies CP, sOb, n/v/d/ Exam Const General: cooperative, comfortable and no acute distress Nutritional Appearance: obese Orientation: alert and awake Other: confusion waxes and wanes Eyes Eyelids: eyelids normal Pupils: PERRL EOM: EOM intact bilaterally Neck Neck: normal visual inspection and no JVD Lymphatic: no lymphadenopathy noted Resp Effort & Inspection: normal respiratory effort Auscultation: clear to auscultation bilaterally Cardio Jugular venous pressure: no JVD Rhythm: regular rhythm Heart Sounds: S1 normal GI Auscultation: normal bowel sounds General: No CVA tenderness and deferred Skin General skin exam: no rashes or lesions noted Neuro General: patient alert, patient awake and patient oriented x3 Cognition: normal cognition Speech: speech normal Gait: normal gait Extrem General: normal to inspection, full ROM and no clubbing, cyanosis or edema Objective Last Vital Signs Temp 36.4 C L 01/03/21 07:48 Pulse 67 01/03/21 07:48 Resp 18 01/03/21 07:48 BP 107/67 01/03/21 07:48 Pulse Ox 94 01/03/21 07:48 Laboratory Results - last 24 hr 12/31/20 01/03/21 01/03/21 20:03 09:10 09:10 WBC 12.71 H RBC 2.64 L Hgb 7.6 L Hct 24.8 L MCV 93.9 MCH 28.8 MCHC 30.6 L RDW 18.3 H Plt Count 339 MPV 10.1 Immature Gran % 0.4 Neutrophils % 77.2 Lymphocytes % 14.6 Monocytes % 6.2 Eosinophils % 1.4 Basophils % 0.2 Nucleated RBC % 0 Absolute Neutrophils 9.81 H Absolute Lymphocytes 1.86 Absolute Monocytes 0.79 Absolute Eosinophils 0.18 Absolute Basophils 0.03 Sodium 139 Potassium 4.0 D Chloride 106 Carbon Dioxide 24.9 Anion Gap 8.1 BUN 40 H Creatinine 2.2 H Estimated GFR/1.73 m2 29.25 Glucose 82 D Calcium 8.8 Stl C.difficile Tox PCR Cancelled
[2021-01-03 15:35] VITALS: BP 128/74; PULSE 61; RESP 18; TEMP 36.5; O2SAT 98
[2021-01-03] MEDS: ROSUVASTATIN 20 MG TAB 40 MG PO (21:19)
[2021-01-03] MEDS: Mirtazapine 15 MG TAB 7.5 MG PO (21:19)
[2021-01-03] MEDS: Melatonin 3 MG TAB 6 MG PO (21:20)
[2021-01-03] MEDS: rOPINIRole 1 MG TAB PO (21:20)
[2021-01-03 22:54] VITALS: BP 165/74; PULSE 69; RESP 18; TEMP 36.8; O2SAT 96
[2021-01-04] MEDS: Lactated Ringers 1,000 ML 100 ML IV (01:23)
[2021-01-04] MEDS: Levothyroxine 175 MCG TAB PO (05:52)
[2021-01-04 07:00] VITALS: BP 138/67; PULSE 69; RESP 20; TEMP 36.5; O2SAT 97
[2021-01-04 07:46] LABS: Anion Gap 9.2 mmol/L (3-11); BUN 33 mg/dL (7-18); CO2 25.8 mmol/L (21.0-32.0); CREATININE 1.9 mg/dL (0.70-1.30); Calcium 8.6 mg/dL (8.5-10.1); Chloride 110 mmol/L (98-107); Estimated GFR 34.64 (mL/min/1.73m2); Glucose 52 mg/dL (74-106); Potassium 4.2 mmol/L (3.5-5.1); Sodium 145 mmol/L (136-145)
[2021-01-04 07:49] LABS: Magnesium 1.9 mg/dL (1.8-2.4)
[2021-01-04] MEDS: Pantoprazole 40 MG TABCR PO (08:35)
[2021-01-04] MEDS: Finasteride 5 MG TAB PO (08:35)
[2021-01-04] MEDS: Tamsulosin 0.4 MG CAPCR 0.8 MG PO (08:35)
[2021-01-04] MEDS: Sertraline 50 MG TAB 200 MG PO (08:35)
[2021-01-04] MEDS: Lactobacillus Acidophilus CAP 1 CAP PO (08:35)
[2021-01-04] MEDS: Senna TAB 1 TAB PO ×2 (08:35→20:51)
[2021-01-04] MEDS: methylPREDNISolone 4 MG TAB 10 MG PO (08:36)
[2021-01-04] MEDS: Gabapentin 400 MG CAP PO ×2 (08:36→20:52)
[2021-01-04] MEDS: Docusate Sodium 100 MG CAP PO ×2 (08:36→20:53)
[2021-01-04] MEDS: Folic Acid 1 MG TAB PO (08:36)
[2021-01-04] MEDS: Normal Saline Flush 10 ML SYR IVP ×2 (08:37→20:48)
[2021-01-04] MEDS: Cholecalciferol (Vitamin D3) 1,000 UNIT TAB 2000 UNITS PO (08:37)
[2021-01-04] MEDS: buPROPion-XL 150 MG TABCR PO (08:37)
--- NOTE | 2021-01-04 11:55 | PT.INTREAT ---
PT Notes Visit Reasons: PRISCILLA,Weakness,UTI 01/04/2021 SUBJECTIVE: Sonido stating he is feeling pretty good day. On days his legs are not bothering him as much he is able to get up and walk around. He reports just walking from the bathroom with nursing. Nursing notes he was only 1 assist. OBJECTIVE: TRANSFERS/GAIT: performed with nursing just prior to my arrival. THEREX: Resisted UE/LE strengthening performed sitting in the chair. See flow sheet for specifics. ASSESSMENT: Pt appears to be in good spirits today and having less pain. Will assess walking/gait tomorrow as he is able. PLAN: Continue current POC. Treatment time: 15 minutes [id number] Indira Tan PTA Clinic location: [facility] [place], [place]
[2021-01-04] MEDS: Insulin Aspart 300 UNITS/3 ML PEN SC ×2 (11:58→17:04)
--- NOTE | 2021-01-04 14:05 | W.PM.PROGNOT ---
Date of Service Date of service: 01/04/21 Time of Service: 10:30 Assessment and Plan Assessment and plan (1) PRISCILLA (acute kidney injury): Start date: 01/04/21 Start time: 12:00 Status: Acute Assessment and plan: Improving. Down to 1.9, Will d/c IVF, repeat labs in am (2) Adrenal insufficiency: Start date: 01/04/21 Start time: 12:00 Status: Acute Assessment and plan: feeling much better today, able to participate better today. will continue 10 mg prednisone will keep on this dose, patient feels good, will let rheum decide if he needs a decrease and wean down as sugars have been stable and patient has felt great on this dose will contine on discharge.. Patient should continue this dose and follow up with rhuem and endocrinology (3) Hypothyroidism: Start date: 01/04/21 Start time: 12:00 Status: Chronic Assessment and plan: TSH 7.9 on december 31, down from 43 on dec 07. continue synthryoid and recheck in 4 weeks. Qualifiers: Hypothyroidism type: postoperative Qualified Code(s): E89.0 - Postprocedural hypothyroidism (4) Ambulatory dysfunction: Start date: 01/04/21 Start time: 12:00 Status: Acute Assessment and plan: PT/OT Discharge to h/r tomorrow (5) DVT prophylaxis: Start date: 01/04/21 Start time: 14:13 Status: Acute Assessment and plan: pradaxa BID (6) Discharge planning issues: Start date: 01/04/21 Start time: 14:13 Status: Acute Assessment and plan: case management following. He is agreeable to H/R on Tuesday and they have accepted him for tomorrow, repeat COVID pending discussed with DR Reed Subjective Subjective Patient reports: no new complaints Interval history since last seen: Patient doing well states he feels great. IVF dcd. Creatinine improving. COVID placed for H/R discharge in am. He denies CP, SOB, n/v/d Exam Const General: cooperative, comfortable, no acute distress, frail appearing, ill appearing chronically and not lethargic Nutritional Appearance: obese and overweight Orientation: alert and awake [facility] Head: normal to inspection, normocephalic and atraumatic Mouth: oral mucosae normal Eyes Eyelids: eyelids normal Pupils: PERRL EOM: EOM intact bilaterally Neck Neck: normal visual inspection, no lymphadenopathy and no JVD Thyroid: thyroid normal Lymphatic: no lymphadenopathy noted Chest Chest: normal inspection of the chest Resp Effort & Inspection: normal respiratory effort and able to speak in complete sentences Auscultation: clear to auscultation bilaterally, no rales and no rhonchi Cardio Jugular venous pressure: no JVD Rate: regular rate Rhythm: regular rhythm Heart Sounds: S1 normal, S2 normal, no click and no gallops GI Inspection: normal to inspection Palpation: soft, no hepatosplenomegaly and nontender Percussion: normal to percussion Auscultation: normal bowel sounds General: No CVA tenderness and deferred Skin General skin exam: no rashes or lesions noted Neuro General: patient alert, patient awake and patient oriented x3 Cognition: normal cognition Speech: speech normal Gait: normal gait Motor: muscle tone normal throughout Extrem General: normal to inspection, full ROM, no clubbing, cyanosis or edema and no edema Objective Last Vital Signs Temp 36.5 C 01/04/21 07:00 Pulse 69 01/04/21 07:00 Resp 20 01/04/21 07:00 BP 138/67 01/04/21 07:00 Pulse Ox 97 01/04/21 07:00 Laboratory Results - last 24 hr 01/04/21 01/04/21 06:35 06:35 Sodium 145 Potassium 4.2 Chloride 110 H Carbon Dioxide 25.8 Anion Gap 9.2 BUN 33 H Creatinine 1.9 H Estimated GFR/1.73 m2 34.64 Glucose 52 L Calcium 8.6 Magnesium 1.9
[2021-01-04 15:47] VITALS: BP 144/72; PULSE 65; RESP 17; TEMP 36.8; O2SAT 98
[2021-01-04] MEDS: rOPINIRole 1 MG TAB PO (20:51)
[2021-01-04] MEDS: Melatonin 3 MG TAB 6 MG PO (20:51)
[2021-01-04] MEDS: Mirtazapine 15 MG TAB 7.5 MG PO (20:52)
[2021-01-04] MEDS: ROSUVASTATIN 20 MG TAB 40 MG PO (20:52)
[2021-01-05] MEDS: Levothyroxine 175 MCG TAB PO (05:24)
[2021-01-05] MEDS: Alendronate 70 MG TAB PO (05:24)
[2021-01-05 05:29] VITALS: BP 155/60; PULSE 69; RESP 18; TEMP 37.1; O2SAT 90
[2021-01-05 07:30] VITALS: BP 151/61; PULSE 61; RESP 18; TEMP 37.4; O2SAT 96
--- NOTE | 2021-01-05 07:45 | W.PM.PROGNOT ---
Exam Narrative Exam Narrative: In reviewing his records, I find several bladder scans recorded. I am not certain if they are post void residuals, but the bladder volumes are now between 100 and 150 cc (compared to 200 to 300 cc back in January of last year). Objective Last Vital Signs Temp 37.1 C 01/05/21 05:29 Pulse 69 01/05/21 05:29 Resp 18 01/05/21 05:29 BP 155/60 H 01/05/21 05:29 Pulse Ox 90 L 01/05/21 05:29 Laboratory Results - last 24 hr 01/04/21 01/04/21 06:35 06:35 Sodium 145 Potassium 4.2 Chloride 110 H Carbon Dioxide 25.8 Anion Gap 9.2 BUN 33 H Creatinine 1.9 H Estimated GFR/1.73 m2 34.64 Glucose 52 L Calcium 8.6 Magnesium 1.9
[2021-01-05] MEDS: Diclofenac 1% Gel 100 GM TUBE TP ×2 (07:46→11:33)
[2021-01-05] MEDS: Senna TAB 1 TAB PO (07:47)
[2021-01-05] MEDS: Sertraline 50 MG TAB 200 MG PO (07:47)
[2021-01-05] MEDS: Lactobacillus Acidophilus CAP 1 CAP PO (07:47)
[2021-01-05] MEDS: Folic Acid 1 MG TAB PO (07:47)
[2021-01-05] MEDS: methylPREDNISolone 4 MG TAB 10 MG PO (07:48)
[2021-01-05] MEDS: Cholecalciferol (Vitamin D3) 1,000 UNIT TAB 2000 UNITS PO (07:48)
[2021-01-05] MEDS: Tamsulosin 0.4 MG CAPCR 0.8 MG PO (07:48)
[2021-01-05] MEDS: Gabapentin 400 MG CAP PO (07:48)
[2021-01-05] MEDS: Finasteride 5 MG TAB PO (07:48)
[2021-01-05] MEDS: buPROPion-XL 150 MG TABCR PO (07:49)
[2021-01-05] MEDS: Docusate Sodium 100 MG CAP PO (07:49)
[2021-01-05] MEDS: Pantoprazole 40 MG TABCR PO (07:49)
[2021-01-05 09:03] LABS: NT-proBNP 13477 pg/mL (<300)
[2021-01-05 09:44] LABS: Source Nasal/Nares
[2021-01-05 10:37] LABS: COVID-19 PCR Negative (Negative)
--- NOTE | 2021-01-05 11:21 | W.PM.DS.N ---
Date of service: 01/05/21 Time of Service: 11:34 DS: Diagnosis Discharge Diagnosis (1) PRISCILLA (acute kidney injury): Start date: 01/05/21 Start time: 11:34 Status: Resolved Asessment and Plan: Improved. With IV hydration. Patient doing well being transferred to H/r today (2) Adrenal insufficiency: Start date: 01/05/21 Start time: 11:35 Status: Acute Asessment and Plan: Increased dose of methylprednisone to 10 mg daily since patient has been increased from 4 to 10 mg and doing well, He has been feeling much better since. will continue this dose (3) Hypothyroidism: Start date: 01/05/21 Start time: 11:35 Status: Chronic Asessment and Plan: continue medication (4) Ambulatory dysfunction: Start date: 01/05/21 Start time: 11:56 Status: Acute Asessment and Plan: Improving with methylpredisone will work with PT at H/R to improve strength and balance (5) Elevated brain natriuretic peptide (BNP) level: Start date: 01/05/21 Start time: 12:18 Status: Acute Asessment and Plan: Does not appear to be in CHF however bnp 13 477 was given IV hydration due to PRISCILLA and CHF meds held, no crackles, or edema, will given 80 mg iV lasix dose (6) Hyperkalemia: Start date: 01/05/21 Start time: 12:26 Status: Acute Asessment and Plan: not concerned at this will resolved with being placed back on diuretics. Will double diuretics x couple days. Repeat bnp and bmp in three days. Follow up with PCP in [address] Reed. Discharge Plan Disposition Patient Disposition: SN[facility] ([facility] Condition: Improving Discharge Details Reason For Visit: PRISCILLA,Weakness,UTI Admit Date/Time: 12/31/20 21:29 Admit Provider: Celestine Rosenbaum Attending Provider: Celestine Rosenbaum Primary Care Provider: Celestine Perkins [facility] Course Hospital Course: This 75-year-old male admitted by the emergency department after being seen again for weakness and fall. He has had many visits over the last few months. He fell about 3 weeks ago and fractured some ribs. He was here recently for DVT of his leg. He was here most recently here for hematuria a few days ago. It was felt that he might have a urinary tract infection was started on levofloxacin. He fell last night at home. He lives with his . It is getting to be much more difficult for her to manage him because of his frequent falls. He has been in a wheelchair for the last 3 years because of a to fracture his back. He was told that he is not well enough to withstand surgery for the back. His has had trouble getting him up after he falls. He fell last night and again today. He saw his doctor at the office and was referred here for further evaluation. His blood pressure was low at the office. He has had his had a tough last 15 years but things been much worse in the last 3 years. In the emergency department it was thought that he is dehydrated and has a urinary tract infection. He was admitted to m/s for further eval. He was placed on a longer taper last visit and when back down to baseline he declined again. This visit medrol was increased to 10 mg. Once he was increased he felt much better, lab values corrected. He felt more energetic. He will be discharged on a higher taper of medrol as he likely needs a higher taper of steroids. he needs to f/u with his genetic physician to manage his steroids. PRISCILLA improved, though bmp did elevate due clinically he is showing no signs of CHF, will give 80 lasix, take double dose of diuretics x 2 days repeat bmp and bnp in 3 days. Will give veltessa for elevated potassium level, though not concerned given that he is getting 80 lasix. He is being discharge to H/R for further strength, given the increase in steroids this will help with his improvement. He denies Cp, SOB, N/V/d. F/U with [facility] in 1-2 weeks Home Meds and New Rx's Prescriptions: New sennosides [Senokot] 8.6 mg Tablet 1 tab PO BID Qty: 20 RF: 0 methylprednisolone [Medrol] 4 mg Tablet 10 mg PO DAILY Qty: 30 RF: 0 Veltassa 16.8 gram powder in packet 16.8 g PO DAILY Qty: 30 RF: 0 methylprednisolone 4 mg tablet 10 mg PO DAILY Qty: 30 RF: 0 senna 8.6 mg capsule 8.6 mg PO BID PRNQty: 30 RF: 0 Veltassa 16.8 gram powder in packet 16.8 g PO DAILY Qty: 30 RF: 0 Continued finasteride 5 MG tablet 5 mg PO DAILY Qty: 90 RF: 3 nitroglycerin [Nitrostat] 0.4 MG tablet, sublingual 0.4 mg Buccal PRN PRNRF: 0 pyridoxine (vitamin B6) [Vitamin B-6] 50 MG tablet 50 mg PO DAILY RF: 0 fluticasone propionate [Flonase Allergy Relief] 9.9 ML spray,suspension 9.9 ml NS BID PRNRF: 0 rosuvastatin [Crestor] 40 MG tablet 40 mg PO HS RF: 0 bupropion HCl 150 mg tablet extended release 24 hr 150 mg PO QAM RF: 0 tamsulosin [Flomax] 0.4 mg capsule 0.4 mg PO DAILY RF: 0 pantoprazole [Protonix] 40 mg tablet,delayed release (DR/EC) 40 mg PO DAILY Qty: 30 RF: 12 folic acid 1 MG tablet 1 mg PO QAM RF: 0 liothyronine [Cytomel] 5 mcg Tablet 5 mcg PO DAILY RF: 0 Saccharomyces boulardii 250 mg Capsule 250 mg PO DAILY RF: 0 cholecalciferol (vitamin D3) [Vitamin D3] 2,000 unit Capsule 2,000 unit PO DAILY RF: 0 leflunomide 20 mg Tablet 20 mg PO DAILY RF: 0 Levemir FlexTouch U-100 Insuln 100 unit/mL (3 mL) insulin pen See Rx Instructions .ROUTE .COMPLEX RF: 0 ipratropium-albuterol 0.5 mg-3 mg(2.5 mg base)/3 mL Solution For Nebulization 3 ml INHALATION Q6H PRN PRNRF: 0 albuterol sulfate 2.5 mg /3 mL (0.083 %) Solution For Nebulization 2.5 mg inhalation Q2H PRN PRNRF: 0 Saccharomyces boulardii 250 mg Capsule 250 mg PO DAILY RF: 0 buprenorphine [Butrans] 15 mcg/hour Patch Weekly See Rx Instructions .ROUTE .COMPLEX RF: 0 methotrexate (PF) 15 mg/0.6 mL Syringe See Rx Instructions .ROUTE .COMPLEX RF: 0 sertraline 100 mg tablet 200 mg PO DAILY RF: 0 albuterol sulfate [ProAir HFA] 90 mcg/actuation Hfa Aerosol Inhaler 2 puff INHALATION Q4H PRN PRNRF: 0 irbesartan 300 mg Tablet 300 mg PO DAILY RF: 0 Entyvio 300 mg Recon Soln 300 mg IV DIRECTED RF: 0 spironolactone 50 mg Tablet 50 mg PO DAILY RF: 0 oxycodone 10 mg tablet 10 mg PO TID PRNRF: 0 ropinirole 1 mg tablet 1 mg PO QHS RF: 0 insulin lispro [Humalog KwikPen Insulin] 100 unit/mL insulin pen SUBCUT RF: 0 Restasis 0.05 % dropperette 1 drp ophthalmic (eye) BID RF: 0 mirtazapine 7.5 mg tablet 7.5 mg PO QHS RF: 0 Pentasa 500 mg capsule, extended release 1,000 mg PO TID RF: 0 buprenorphine 15 mcg/hour patch weekly 1 patch transdermal QWEEK RF: 0 levothyroxine 150 mcg tablet 175 mcg PO DAILY@0600 RF: 0 alendronate 70 mg tablet 70 mg PO QWEEK RF: 0 gabapentin 400 mg capsule 400 mg PO BID RF: 0 Rasuvo (PF) 20 mg/0.4 mL auto-injector 20 mg SUBCUT Q7D RF: 0 Pradaxa 150 mg capsule 150 mg PO BID Qty: 60 RF: 0 enoxaparin [Lovenox] 100 mg/mL syringe 100 mg subcut Q12H Qty: 10 RF: 0 Discontinued methylprednisolone 4 MG tablet 4 mg PO DAILY RF: 0 No Action levofloxacin 750 mg Tablet 750 mg PO QAM Qty: 5 RF: 0 Discharge Instructions Instructions: Acute Kidney Injury (DC), Urinary Tract Infection in Men (DC), Rowan Disease (DC), Weakness (DC) Additional Instructions: Transfer to H/R F/u with PCP in 1-2 weeks take extra dose diuretics x next 2 days repeat bmp and bnp in 3 days Stand Alone Forms: Nursing Discharge Form Activity:: Activity as Tolerated Equipment/Supplies:: No Equipment Needed Diet:: Carb Counting Discharge Orders Discharge Orders: Discharge Order (Routine); Ordered 01/05/21 Ordered By: Augusta Roper DS: Summary Time Spent with Patient providing and/or coordinating discharge services: Less than 30 minutes Status at Discharge Functional status at discharge: uses cane/walker Overall status at discharge: patient is progressing back to baseline Mental Status: other (waxes and wanes) Speech and Movement: speech and movement normal Mood: congruent mood and other (waxes and wanes) Affect: normal affect Exam Const General: cooperative, comfortable, no acute distress, frail appearing, ill appearing chronically and not lethargic Nutritional Appearance: obese and overweight Orientation: alert and awake [facility] Head: normal to inspection, normocephalic and atraumatic Mouth: oral mucosae normal Eyes Eyelids: eyelids normal Pupils: PERRL EOM: EOM intact bilaterally Neck Neck: normal visual inspection, no lymphadenopathy and no JVD Thyroid: thyroid normal Lymphatic: no lymphadenopathy noted Chest Chest: normal inspection of the chest Resp Effort & Inspection: normal respiratory effort and able to speak in complete sentences Auscultation: clear to auscultation bilaterally, no rales and no rhonchi Cardio Jugular venous pressure: no JVD Rate: regular rate Rhythm: regular rhythm Heart Sounds: S1 normal, S2 normal, no click and no gallops GI Inspection: normal to inspection Palpation: soft, no hepatosplenomegaly and nontender Percussion: normal to percussion Auscultation: normal bowel sounds General: No CVA tenderness and deferred Skin General skin exam: no rashes or lesions noted Neuro General: patient alert, patient awake and patient oriented x3 Cognition: normal cognition Speech: speech normal Gait: normal gait Motor: muscle tone normal throughout Extrem General: normal to inspection, full ROM, no clubbing, cyanosis or edema and no edema Psych Mental Status: other (waxes and wanes) Speech and Movement: speech and movement normal Mood: congruent mood and other (waxes and wanes) Affect: normal affect DS: Data Vitals/I&O Vitals and I&O: Vital Signs Temperature 37.4 C 01/05/21 07:30 Temperature Source Temporal Artery Scan 01/05/21 07:30 Pulse 61 01/05/21 07:30 Pulse Rhythm Regular 01/05/21 05:36 Pulse 95 H 12/31/20 21:00 Respiratory Rate 18 01/05/21 07:30 Respiratory Effort Non-Labored 01/05/21 05:36 Respiratory Depth Normal 01/05/21 05:36 Respiratory Pattern Normal 01/05/21 05:36 Blood Pressure 151/61 H 01/05/21 07:30 Blood Pressure Mean 99 12/31/20 20:46 Blood Pressure Position Supine 12/31/20 18:07 Pulse Oximetry 96 01/05/21 07:30 Oxygen Delivery Method Room Air 01/05/21 07:30 Oxygen Flow Rate 0 01/05/21 07:30 Pain Level 8 01/05/21 07:44 Comment 01/03/21 07:48 Intake & Output 01/04/21 01/04/21 01/05/21 11:59 23:59 11:59 Intake Total 2070 / 3310 1240 / 3310 10 10 Output Total 800 / 1350 550 / 1350 Balance 1270 / 1960 690 / 1960 Intake: IV 1830 / 2830 1000 / 2830 10 Oral 240 / 480 240 / 480 Output: Urine 800 / 1350 550 / 1350 Other: Urine Color Straw Yellow Urine Appearance Clear Clear Clear Urine Odor Normal Stool Size Moderate Stool Characteristics Soft Brown Voiding Methods Toilet Urinal Data Completed and Pending Completed studies during hospitalization [Text1]: Exam(s) XR CHEST 2V PA LATERAL EXAM: XR CHEST 2V PA LATERAL CLINICAL HISTORY: ams. TECHNIQUE: 2D digital imaging was performed. COMPARISON: CR XR PORTABLE CHEST AP from 12/08/2020 FINDINGS: Cardiomegaly again noted. PICC line is been removed. Mediastinum unchanged. Left lung appears clear. Increased interstitial markings noted in the right lung, similar to the previous study. There are no obvious pleural effusions evident on this portable view. Compression fractures at T12 and L1 again noted with vertebral plasty cement again evident in L1 vertebral body. IMPRESSION: Cardiomegaly. Increased interstitial markings in the right lung. No obvious pleural effusions. Exam(s) a CT:CT head wo Exam(s) CT HEAD WO EXAM: CT HEAD WO CLINICAL HISTORY: ams. TECHNIQUE: Imaging Protocol: Axial computed tomography images with coronal and sagittal reformatted images were created and reviewed COMPARISON: CT CT HEAD WO from 03/05/2019 FINDINGS: Images are degraded by motion artifact. There are no obvious acute skull fractures nor fluid in the visualized paranasal sinuses. Evidence of orbital lower fractures again noted. Fixation plate over the lateral wall right orbit is again noted. There is no evidence of intracranial hemorrhage, mass effect, or shift of midline structures. There are no extra-axial fluid collections. The ventricles are not enlarged or shifted and there is no blood within the ventricular system nor within the basal cisterns. Heavy calcification of both vertebral arteries at skull base noted as is calcification intracavernous internal carotid arteries bilaterally. Small lacunar infarcts are noted in the left thalamus and lateral to the right thalamus in the region the posterior limb of the right internal capsule these findings are unchanged.. There is periventricular hypodensity consistent with chronic small vessel disease. IMPRESSION: No acute intracranial findings on this noninfused CT scan of the brain. White matter chronic ischemic findings as described above, unchanged. Exam(s) PROCEDURE INFORMATION: Exam: XR Chest Exam date and time: 12/31/2020 6:22 PM Age: 75 years old Clinical indication: Other: AMS TECHNIQUE: Imaging protocol: XR of the chest. Views: 2 views. Total images: 2 COMPARISON: CR XR PORTABLE CHEST AP 12/08/2020 11:48 AM FINDINGS: Tubes, catheters and devices: Previous left upper extremity PICC line removed. Lungs: Low lung volumes. Mild central vascular congestion. Mild interstitial prominence in the perihilar and basilar distributions, right greater than left. This may relate to chronic interstitial scarring versus mild interstitial edema versus bronchitis and interstitial pneumonitis. No pushpa consolidations. Pleural spaces: No pleural effusion. No pneumothorax. Heart/Mediastinum: Moderate cardiomegaly. Vasculature: Mild aortic ectasia/tortuosity and mild calcific atherosclerosis. Bones/joints: No acute osseous abnormalities are identified. Osteopenia. Chronic appearing compression fractures at T12 and L1 with prior L1 osteoplasty. IMPRESSION: 1. Cardiomegaly and vascular congestive changes suggesting CHF, with perihilar interstitial prominence, right greater than left, which may relate to a mild element of interstitial edema, versus interstitial scarring or bronchitis/interstitial pneumonitis. No consolidations. 2. Additional nonemergent findings detailed above. Exam(s) PROCEDURE INFORMATION: Exam: CT Head Without Contrast Exam date and time: 12/31/2020 6:22 PM Age: 75 years old Clinical indication: Other: AMS TECHNIQUE: Imaging protocol: Computed tomography of the head without contrast. Total images: 1125 Radiation optimization: All CT scans at this facility use at least one of these dose optimization techniques: automated exposure control; mA and/or kV adjustment per patient size (includes targeted exams where dose is matched to clinical indication); or iterative reconstruction. COMPARISON: CT HEAD WO 03/05/2019 11:29 AM FINDINGS: Brain: Moderate generalized atrophy. Mild bilateral white matter hypodensities which are nonspecific but most commonly associated with chronic microvascular ischemia in this age group. No extra-axial fluid collections. No evidence of acute intracranial hemorrhage. Caballero-white differentiation is well maintained. No CT evidence of large territory acute or subacute intracranial ischemia/infarct. No intracranial mass lesions. No midline shift or herniation. Cerebral ventricles: Mild compensatory ventriculomegaly secondary to central atrophy. Paranasal sinuses: Visualized paranasal sinuses are clear. Mastoid air cells: Visualized mastoid air cells are clear. Orbital cavity: Visualized orbital contents demonstrate no evidence of acute abnormality. Moderate motion artifact limits orbital assessment. Vasculature: Moderate-severe calcific atherosclerosis. No asymmetric vascular hyperdensities suggestive of thrombosis are identified. Bones/joints: No acute osseous abnormalities. Chronic bilateral medial orbital wall blowout fractures and orbital floor fractures unchanged in appearance. Prior hardware fixation of the right lateral orbit again noted with bilateral lateral orbital wall defects which are unchanged and probably postoperative in nature. Soft tissues: The scalp and visualized soft tissues demonstrate no acute abnormality. Other findings: The IACs are grossly normal. The sella is grossly normal. IMPRESSION: 1. No acute intracranial process. No intracranial hemorrhage or mass effect. 2. Atrophy and chronic microvascular changes consistent with age. 3. Moderate-severe calcific atherosclerosis. 4. Chronic posttraumatic and postoperative changes in the orbits, unchanged. FINDINGS: KIDNEYS: Both kidneys measure approximately 10.8 cm. Both kidneys exhibit normal cortical thickness and corticomedullary differentiation. No cysts nor masses nor obvious calculi evident in either kidney. No hydronephrosis. No perinephric fluid. URINARY BLADDER: Prevoid volume is 286 cc. Apparently the patient was not able to void. There is a 5 cm diameter cystic structure seen adjacent to the right side of the urinary bladder which is a reservoir for penile implant, as evident on recent CT scans. No obvious bladder mass nor. Ureterovesical jets: Not observed IMPRESSION: 1. No significant ultrasound findings in the kidneys. 2. Right perivesicular reservoir for penile implant. 3. Apart from the urinary bladder lumen and reservoir there was no free fluid evident nor additional fluid collection, particularly given the findings on the recent CT scan of 12/25/2020. Findings on that CT scan might be best followed with an additional repeat CT scan if clinically indicated. Sign rib Labs on day of discharge: Labs from last 24 hours 01/05/21 01/05/21 09:30 08:27 NT-Pro-B Natriuret Pep [id number] H COVID-19 Source Nasal/Nares SARS-CoV-2 (PCR) Negative Preliminary micro results at discharge 12/31/20 22:00 Blood Culture - Preliminary Blood NO GROWTH 96 HOURS PFS Medical History Adrenal insufficiency Benign prostatic hyperplasia (07/03/15) Coronary artery disease Crohns disease Diabetes mellitus, type II, insulin dependent DVT (deep venous thrombosis) Erectile dysfunction of organic origin (07/03/15) Frequent falls GERD (gastroesophageal reflux disease) GI bleed Graves disease Hyperlipidemia Hypertension Hypothyroidism Obstructive sleep apnea Peripheral neuropathy Rheumatoid arthritis Sensorineural hearing loss, bilateral (01/28/15) Stroke 2018 Traumatic compression fracture of T12 thoracic vertebra Vitamin B12 deficiency Vitamin B6 deficiency Vitamin D deficiency Surgical History Graves' eye disease s/p surgery H/O lumbosacral spine surgery Prosthesis, Penile implant Family History Father Asthma Sister Asthma Social History Smoking/Tobacco Use Status: Former Tobacco Use Smoking risk assessment performed?: Yes Alcohol Intake: former Substance use type: does not use Household members: spouse Number of Children: 5 current occupation: Retired [employer] What is your relationship status?: Panel score (0-1 are the most socially isolated patients): 1 Do you feel safe at home: Yes Do you feel safe in your relationship?: Yes
[2021-01-05] MEDS: oxyCODONE 5 mg/Acetaminophen 325 mg TAB 2 TAB PO (11:33)
[2021-01-05] MEDS: Furosemide 100 MG/10 ML VIAL 80 MG IVP (11:33)
[2021-01-05] MEDS: Normal Saline Flush 10 ML SYR IVP (11:34)
[2021-01-05] MEDS: Insulin Aspart 300 UNITS/3 ML PEN SC (11:50)
[2021-01-05 11:54] LABS: Anion Gap 7.8 mmol/L (3-11); BUN 33 mg/dL (7-18); CO2 25.2 mmol/L (21.0-32.0); Chloride 106 mmol/L (98-107); Estimated GFR 32.65 (mL/min/1.73m2); Glucose 95 mg/dL (74-106); Potassium 5.3 mmol/L (3.5-5.1); Sodium 139 mmol/L (136-145)
--- NOTE | 2021-01-05 12:57 | PDOC.CMDIS ---
LACE Index Scoring Tool - Questions: Length of Stay (in days): 4 - 6 Acuity (Admit via E.D.?): Yes Comorbidities: Diabetes w/o Complication E.D. Visits: 6 - Answers: Total Score: 12 Risk of Readmission: High Risk Care Management Discharge Reason for Hospitalization: PRISCILLA, weakness, UTI Discharge Plan: Miguel will discharge to [facility] for continued rehab prior to returning home. He will transport via private spotter driver through [facility]; coordinated by this typewriter repairer. Patient/Family Education Needs: Review discharge instructions, discuss Ask Me Three. Services Needed at Discharge: Nursing Home Facility ([facility] ), Transportation ([facility] private spotter driver )
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
== END 2021-01-05 13:50 | disposition skilled nursing facility (03) | DRG 683 ==
LOC: ER 21:44 → MS 22:37
PROVIDERS: Nurse Practitioner Acute Care; Nurse Practitioner Family; Admitting Provider Family Medicine; Emergency Provider Physician Assistant; PCP Family Medicine; Visit Provider Family Medicine
DX: N17.9 Acute kidney failure, unspecified (principal); N30.01 Acute cystitis with hematuria; E27.40 Unspecified adrenocortical insufficiency; K50.90 Crohn's disease, unspecified, without complications; R53.1 Weakness; R29.6 Repeated falls; I95.9 Hypotension, unspecified; Z86.718 Personal history of other venous thrombosis and embolism; E86.0 Dehydration; N40.0 Benign prostatic hyperplasia without lower urinary tract symptoms; I25.10 Atherosclerotic heart disease of native coronary artery without angina pectoris; Z79.4 Long term (current) use of insulin; E11.42 Type 2 diabetes mellitus with diabetic polyneuropathy; K21.9 Gastro-esophageal reflux disease without esophagitis; E78.5 Hyperlipidemia, unspecified; I10 Essential (primary) hypertension; G47.33 Obstructive sleep apnea (adult) (pediatric); M06.9 Rheumatoid arthritis, unspecified; H90.3 Sensorineural hearing loss, bilateral; Z86.73 Personal history of transient ischemic attack (TIA), and cerebral infarction without residual deficits; E53.8 Deficiency of other specified B group vitamins; E55.9 Vitamin D deficiency, unspecified; Z87.891 Personal history of nicotine dependence; Z20.822 Contact with and (suspected) exposure to COVID-19; E89.0 Postprocedural hypothyroidism; R26.2 Difficulty in walking, not elsewhere classified; E87.5 Hyperkalemia
CPT/HCPCS: 36415; 76770; 80048; 80053; 82550; 87040; 87493; 87635; 93005; 96361; 96365; 97110; 97163; 97530; 99222; 99285; 70450; 71046; 81003; 81015; 83735; 83880; 84443; 84484; 85025; 85610; 85730; 87086; 93010; 99223; 99231; 99232; 99233; 99238; J0696; J1720; J1940; J3490; J7509

== ENCOUNTER → 2021-01-02 14:04 | Outpatient (BNVA) | payer MEDICARE, MEDICAID, SELFPAY | PROVIDERS: PCP Family Medicine; Referring Provider Family Medicine; Visit Provider Urology | DX: R69 Illness, unspecified (principal) ==

== ENCOUNTER 2021-01-10 13:05 | Outpatient (REF) | payer MEDICARE, MEDICAID, SELFPAY ==
[2021-01-10 13:31] LABS: Abs Immature Grans 0.06 10^3/uL (0.0-0.06); Absolute Basophil Count 0.02 10^3/uL (0.0-0.2); Absolute Lymphocyte Count 0.43 10^3/uL (1.2-3.4); Absolute Monocyte Count 0.19 10^3/uL (0.1-0.8); Basophils % 0.2; Eosinophils % 4.1; HCT 24.7 % (40.0-50.0); HGB 7.5 g/dL (13.5-17.5); Immature Grans % 0.6; Lymphocytes % 4.4; MCH 28.4 pg (27.0-33.0); MCHC 30.4 % (32.0-36.0); MCV 93.6 fL (80-95); MPV 9.8 fL (8.0-11.0); Nucleated RBC 0 %; Platelet Count 278 10^3/uL (130-400); RBC 2.64 10^6/uL (4.36-5.78); RDW 18.4 % (11.8-14.1); RDW-SD 62.9 fL; WBC 9.67 10^3/uL (4.4-10.8)
[2021-01-10 14:00] LABS: Anion Gap 9.3 mmol/L (3-11); BUN 27 mg/dL (7-18); CO2 24.7 mmol/L (21.0-32.0); CREATININE 1.8 mg/dL (0.70-1.30); Calcium 8.9 mg/dL (8.5-10.1); Chloride 103 mmol/L (98-107); Estimated GFR 36.87 (mL/min/1.73m2); Glucose 85 mg/dL (74-106); Potassium 4.7 mmol/L (3.5-5.1); Sodium 137 mmol/L (136-145)
[2021-01-10 14:07] LABS: Diff Comment Agrees w/ Instrument; Hypochromasia 1+
[2021-01-10 14:08] LABS: Absolute Neutrophil Count 8.58 10^3/uL (1.2-6.7); Neutrophils % 88.7; Polychromasia Present
== END 2021-01-10 13:06 | disposition home or self-care (01) ==
LOC: LBN 13:05
PROVIDERS: PCP Family Medicine; Visit Provider Family Medicine
DX: E11.9 Type 2 diabetes mellitus without complications (principal); N18.9 Chronic kidney disease, unspecified
CPT/HCPCS: 80048; 85025

== ENCOUNTER 2021-01-14 12:52 | Inpatient (IN) | payer MEDICARE, MEDICAID, SELFPAY ==
[2021-01-14] VITALS (52 sets, daily range): BP systolic 81–145; BP diastolic 51–105; PULSE 58–114; RESP 14–27; TEMP 35.8–36.8; O2SAT 91–100
--- NOTE | 2021-01-14 13:00 | RT.EKG_ITS ---
APPROVED REPORT Exam: Resting ECG Reason for Exam: AMS, hypoxia Patient Location: E HR:111 bpm ECG Measurements Heart Rate 111 AXIS SD [id number] P [id number] QRSd 104 QRS -24 QT 378 T 56 QTc 513 Conclusion Atrial fibrillation...V-rate 76-144, irreg A-activity Inferior infarct, old...Q >35mS, II III aVF Prolonged QT interval...QTc >500mS afib 111, left axis, no STEMI, inferior q-waves, QTC 513, non-diagnostic EKG
--- NOTE | 2021-01-14 13:00 | DI.CT_ITS ---
Exam(s) CT HEAD WO EXAM: CT HEAD WO CLINICAL HISTORY: AMS. TECHNIQUE: Imaging Protocol: Axial computed tomography images with coronal and sagittal reformatted images were created and reviewed COMPARISON: CT CT HEAD WO from 12/31/2020 FINDINGS: No acute skull fractures. Evidence of bilateral prior orbital blowout fractures again noted. Right -sided surgical plate again noted. There is no evidence of intracranial hemorrhage, new mass effect, or shift of midline structures. Th ere are no extra-axial fluid collections. The ventricles are not enlarged or shifted and there is no blood within the ventricular system nor within the basal cisterns. Heavy calcification is noted in both vertebral arteries at the skull base as well as within the inter nal carotid arteries at the skull base. Symmetrical atrophy again noted. Mild periventricular hypod ensity consistent with chronic small vessel disease again noted. IMPRESSION: No acute intracranial findings on this noninfused CT scan of the brain. Findings as above but unchanged from the prior CT scan performed 12/31/2020. RADIATION DOSE DELIVERED: 807.48mGy.cm Total DLP DATA REPOSITORY: All CT scans at this facility are submitted to the National Radiology Data Registry (NRDR) Dose Index Registry (DIR) with the [employer] (A[employer]). RADIATION OPTIMIZATION: All CT scans at this facility use at least one of these dose optimization te chniques: automated exposure control; mA and/or kV adjustment per patient size (includes targeted exa ms where dose is matched to clinical indication); or iterative reconstruction.
[2021-01-14 13:11] LABS: Lactate 0.9 mmol/L (0.6-1.4)
[2021-01-14 13:20] LABS: Abs Immature Grans 0.02 10^3/uL (0.0-0.06); Absolute Basophil Count 0.01 10^3/uL (0.0-0.2); Absolute Eosinophil Count 0.15 10^3/uL (0.0-0.7); Absolute Lymphocyte Count 0.68 10^3/uL (1.2-3.4); Absolute Monocyte Count 0.05 10^3/uL (0.1-0.8); Absolute Neutrophil Count 3.17 10^3/uL (1.2-6.7); Basophils % 0.2; Eosinophils % 3.7; HCT 28.1 % (40.0-50.0); HGB 8.4 g/dL (13.5-17.5); Immature Grans % 0.5; Lymphocytes % 16.7; MCHC 29.9 % (32.0-36.0); MCV 93.7 fL (80-95); MPV 9.7 fL (8.0-11.0); Monocytes % 1.2; Neutrophils % 77.7; Nucleated RBC 0 %; Platelet Count 271 10^3/uL (130-400); RDW 18.8 % (11.8-14.1); RDW-SD 64.2 fL; WBC 4.08 10^3/uL (4.4-10.8)
[2021-01-14 13:26] LABS: Magnesium 2.2 mg/dL (1.8-2.4)
[2021-01-14] MEDS: Dexamethasone 10 MG/ML VIAL IVP (13:28)
[2021-01-14] MEDS: Dextrose 50%-Water 25 GM/50 ML SYR (13:34)
--- NOTE | 2021-01-14 13:38 | ED.GENADUL_ITS ---
Discharge Plan Disposition Patient Disposition: [facility] INPATIENT Discharge Details Chief Complaint: AMS/LOC Clinical Impression: Altered mental status Admit Date/Time: 01/14/21 15:36 Admit Provider: Tanmay Frazier Attending Provider: Tanmay Frazier Primary Care Provider: Celestine Perkins ED Provider: Melanie Arias Discharge Data Discharge Date/Time-TO BE ENTERED AT DEPARTURE: 01/14/21 17:23 Medical Decision Making Miguel Padilla is a 75-year-old man with history of CHF, CVA, hypothyroidism, hypertension, hyperlipidemia, GERD, diabetes, adrenal insufficiency, seizure disorder who presented to the emergency department with unresponsive episode at [facility] rehab with blood sugar found to be 60. Patient initially minimally responsive upon arrival in the emergency department, patient had rapid and spontaneous improvement in mental status without intervention ER. He is now alert and oriented. Patient reports that he feels terrible and reports that he has been feeling that way for several days. On exam he is elderly and chronically ill-appearing, he appears to be acutely nontoxic. There is a significant amount of dried blood about the patient's mouth, there is no active bleeding, no laceration is apparent. Neurologic exam is nonfocal. Concern for adrenal insufficiency, hypoglycemia, possible seizure, infection, arrhythmia, other cause of unresponsive episode. No apparent trauma per rehab facility. Doubt pulmonary embolism, acute coronary syndrome as etiology of symptoms given apparent return to baseline without localizing symptoms at this time. Exam/history is not consistent with acute coronary syndrome, meningitis. EKG obtained and nondiagnostic. Plan for IV placement, telemetry, screening labs, UA, chest x-ray, CT head, dexamethasone given history of adrenal insufficiency. Will monitor and reassess. CT head negative, chest x-ray concerning for possible CHF. Labs reviewed: WBC 4.08, hemoglobin 8.4, creatinine 1.1, glucose 63. Patient with normal blood sugar upon arrival, plan for D50. CT head negative. At this time unclear etiology of unresponsive episode. Plan for admission for further evaluation. Medical Records Medical records reviewed: Yes I reviewed the patient's medical records. Imaging Data Radiologic Study: Attestation: I personally reviewed and interpreted this imaging study as follows: Radiologist's impression: EXAM: CT HEAD WO CLINICAL HISTORY: AMS. TECHNIQUE: Imaging Protocol: Axial computed tomography images with coronal and sagittal reformatted images were created and reviewed COMPARISON: CT CT HEAD WO from 12/31/2020 FINDINGS: No acute skull fractures. Evidence of bilateral prior orbital blowout fractures again noted. Right-sided surgical plate again noted. There is no evidence of intracranial hemorrhage, new mass effect, or shift of midline structures. There are no extra-axial fluid collections. The ventricles are not enlarged or shifted and there is no blood within the ventricular system nor within the basal cisterns. Heavy calcification is noted in both vertebral arteries at the skull base as well as within the internal carotid arteries at the skull base. Symmetrical atrophy again noted. Mild periventricular hypodensity consistent with chronic small vessel disease again noted. IMPRESSION: No acute intracranial findings on this noninfused CT scan of the brain. EXAM: XR CHEST 1V IN DI DEPT CLINICAL HISTORY: SOB. TECHNIQUE: 2D digital imaging was performed. COMPARISON: Prior chest x-ray 12/31/2020 FINDINGS: Cardiomegaly. Mediastinum not widened. Bilateral interstitial partially confluent disease. Probably pulmonary edema. No pleural effusions. No pneumothorax IMPRESSION: Cardiomegaly. Interstitial and partially confluent pulmonary edema. Correlation with clinical findings recommended Lab Data Lab results reviewed: Yes I reviewed the patient's lab results. ECG Data Attestation: I personally reviewed and interpreted this ECG (s) as follows: Interpretation: EKG shows afib 111, left axis, no STEMI, inferior q-waves, QTC 513, non-diagnostic EKG HPI General Mode of arrival: EMS . Date/Time Provider Initiated Documentation: 01/14/21 13:00 . Information obtained by: RN/MD (History provided by EMS, nurse at [facility] rehab), EMS, RN notes reviewed and old records reviewed . HPI Narrative: Miguel Padilla is a 75-year-old man with history of CHF, CVA, hypothyroidism, hypertension, hyperlipidemia, GERD, diabetes, adrenal insufficiency, seizure disorder presenting to emergency department with altered mental status. Patient was recently admitted to [facility], discharged to [facility]. Patient was found in his bed to be lethargic, minimally responsive to staff, with some cyanosis per [facility]. Blood sugar was 65, patient was given glucagon and blood sugar increased to 90. There was no apparent trauma. Patient reports that he has been feeling lousy for days. He denies any pain, fever, shortness of breath, cough, vomiting, diarrhea, numbn ess, weakness. Patient reports that he is unsure what happened or why he is here. Patient reports that he is unsure whether he bit his tongue, but that he has chronic mouth pain for mouth sores that is unchanged. Patient's reports that he has had seizures in the past, however she states that his last seizure was over 5 years ago. Related Data Home Medications Medication Instructions Recorded Confirmed folic acid 1 mg PO QAM 10/13/12 01/14/21 finasteride 5 mg PO DAILY #90 tab-cap 03/29/01/14/21 fluticasone propionate [Flonase 9.9 ml NS BID PRN 07/03/15 01/16/21 Allergy Relief] nitroglycerin [Nitrostat] 0.4 mg BUCCAL PRN PRN tab-cap 07/03/15 01/15/21 pyridoxine (vitamin B6) [Vitamin 50 mg PO DAILY 07/03/15 01/14/21 B-6] rosuvastatin [Crestor] 40 mg PO HS 07/03/15 01/14/21 bupropion HCl 150 mg 24 hr tablet, 150 mg PO QAM 08/23/18 01/14/21 extended release tamsulosin 0.4 mg capsule 0.4 mg PO DAILY 08/23/18 01/14/21 Saccharomyces boulardii 250 mg PO DAILY 03/05/19 12/08/20 cholecalciferol (vitamin D3) 2,000 unit PO DAILY 03/05/19 01/14/21 [Vitamin D3] leflunomide 20 mg PO DAILY 03/05/19 01/14/21 liothyronine [Cytomel] 5 mcg PO DAILY 03/05/19 01/16/21 Levemir FlexTouch U-100 Insuln See Rx Instructions .ROUTE .COMPLEX 04/11/20 12/31/20 pantoprazole 40 mg tablet,delayed 40 mg PO DAILY #30 tab 05/16/20 01/14/21 release Entyvio 300 mg IV DIRECTED 11/17/20 01/16/21 albuterol sulfate [ProAir HFA] 2 puff INHALATION Q4H PRN PRN 11/17/20 01/16/21 irbesartan 300 mg PO DAILY 11/17/20 01/14/21 sertraline 200 mg PO DAILY 11/17/20 01/14/21 spironolactone 50 mg PO DAILY 11/17/20 01/14/21 Pentasa 1,000 mg PO TID 12/07/20 01/14/21 buprenorphine 1 patch TRANSDERMAL QWEEK 12/07/20 01/14/21 insulin lispro [Humalog KwikPen unit SUBCUT 12/07/20 Insulin] mirtazapine 7.5 mg PO QHS 12/07/20 01/14/21 oxycodone 10 mg PO TID PRN 12/07/20 01/16/21 ropinirole 1 mg PO QHS 12/07/20 01/14/21 alendronate 70 mg PO QWEEK 12/08/20 01/16/21 gabapentin 400 mg PO BID 12/08/20 01/14/21 Pradaxa 150 mg PO BID #60 cap 12/09/20 01/14/21 albuterol sulfate 2.5 mg INHALATION Q2H PRN PRN 12/25/20 01/16/21 ipratropium-albuterol 3 ml INHALATION Q6H PRN PRN 12/25/20 01/16/21 methylprednisolone [Medrol] 10 mg PO DAILY #30 tab 01/05/21 01/14/21 sennosides [senna] 8.6 mg PO BID PRN #30 cap 01/05/21 01/14/21 methotrexate (PF) [Rasuvo (PF)] 20 mg SUBCUT QWEEK 01/15/21 01/15/21 levothyroxine 175 mcg PO DAILY 01/16/21 01/16/21 Previous Rx's Medication Instructions Recorded pantoprazole 40 mg tablet,delayed 40 mg PO DAILY #30 tab 05/16/20 release Pradaxa 150 mg PO BID #60 cap 12/09/20 methylprednisolone [Medrol] 10 mg PO DAILY #30 tab 01/05/21 sennosides [senna] 8.6 mg PO BID PRN #30 cap 01/05/21 Allergies Allergy/AdvReac Type Severity Reaction Status Date / Time infliximab Allergy Unknown Verified 12/31/20 18:14 methotrexate AdvReac Mild Unverified 12/31/20 18:14 atorvastatin calcium AdvReac Bones ache. Unverified 08/25/21 18:14 [From Lipitor] RAMICAIN AdvReac Uncoded 12/31/20 18:14 General Stated Complaint: AMS/LOC HEMA: 1 Review of Systems Narrative: Constitutional: denies fevers Eyes: denies eye pain ENT: denies ear pain, dental pain, sore throat, reports chronic mouth pain from mouth sores, unchanged Cardiovascular: denies chest pain Respiratory: denies SOB, cough GI: denies abdominal pain, vomiting, diarrhea : denies flank pain MSK: denies back pain, neck pain, arthralgias, myalgias Skin: denies rash Neuro: denies headaches, numbness, weakness PFSH Medical History Adrenal insufficiency Benign prostatic hyperplasia (07/03/15) Coronary artery disease Crohns disease Diabetes mellitus, type II, insulin dependent DVT (deep venous thrombosis) Erectile dysfunction of organic origin (07/03/15) Frequent falls GERD (gastroesophageal reflux disease) GI bleed Graves disease Heart failure with reduced ejection fraction Hyperlipidemia Hypertension Hypothyroidism Obstructive sleep apnea Peripheral neuropathy Rheumatoid arthritis Sensorineural hearing loss, bilateral (01/28/15) Stroke 2018 Traumatic compression fracture of T12 thoracic vertebra Vitamin B12 deficiency Vitamin B6 deficiency Vitamin D deficiency Surgical History Graves' eye disease s/p surgery H/O lumbosacral spine surgery Prosthesis, Penile implant Family History Father Asthma Sister Asthma Social History Smoking/Tobacco Use Status: Former Tobacco Use Smoking risk assessment performed?: Yes Alcohol Intake: former Substance use type: does not use Household members: spouse Number of Children: 5 current occupation: Retired [employer] What is your relationship status?: Panel score (0-1 are the most socially isolated patients): 1 Do you feel safe at home: Yes Do you feel safe in your relationship?: Yes Exam Narrative Exam Narrative: Constitutional: Chronically ill but acutely [id number], pleasant HENT: head atraumatic/normocephalic/normal inspection, mucous membranes moist, several areas of dried/clotted blood, no active bleeding, uvula midline, reporting significant pain with attempting to examine mouth further for laceration patient reports is secondary to his chronic mouth sores Eyes: conjunctiva normal, sclera normal, pupils 3mm b/l Neck: no stridor, normal ROM, trachea midline Chest: normal inspection Resp: normal work of breathing, LCTAB Cardio: tachycardic rate, irregularly irregular rhythm, no murmur appreciated GI: abdomen soft, non-tender, non-distended Back: normal inspection, no rash Skin: warm, dry, normal color, no rash Neuro: alert, oriented x3, grossly non-focal, normal tone Ext: no edema Psych: normal mood, normal affect, normal behavior Course Vital Signs Vital signs: Vital Signs Temperature 36.8 C 01/14/21 12:56 Pulse 109 H 01/14/21 12:56 Respiratory Rate 20 01/14/21 12:56 Blood Pressure 135/73 01/14/21 12:56 Pulse Oximetry 95 01/14/21 12:56 Temperature 36.8 C 01/14/21 12:56 Temperature Source Tympanic 01/14/21 12:56 Pulse 109 H 01/14/21 12:56 Respiratory Rate 20 01/14/21 12:56 Blood Pressure 135/73 01/14/21 12:56 Pulse Oximetry 95 01/14/21 12:56 Oxygen Delivery Method Venti Mask 01/14/21 12:56 Oxygen Flow Rate 4 01/14/21 12:56 Pain Level 4 01/14/21 12:56 Lab/Test Results Lab/Test Results: 01/14/21 13:25 Blood Blood Culture - Pending 01/14/21 13:00 Blood Blood Culture - Pending Laboratory Tests Range/Units 01/14/21 01/14/21 12:58 12:58 WBC (4.4-10.8) 10^3/uL 4.08 L RBC (4.36-5.78) 10^6/uL 3.00 L Hgb (13.5-17.5) g/dL 8.4 L Hct (40.0-50.0) % 28.1 L MCV (80-95) fL 93.7 MCH (27.0-33.0) pg 28.0 MCHC (32.0-36.0) % 29.9 L RDW (11.8-14.1) % 18.8 H Plt Count (130-400) 10^3/uL 271 MPV (8.0-11.0) fL 9.7 Immature Gran % 0.5 Neutrophils % 77.7 Lymphocytes % 16.7 Monocytes % 1.2 Eosinophils % 3.7 Basophils % 0.2 Nucleated RBC % % 0 Absolute Neutrophils (1.2-6.7) 10^3/uL 3.17 Absolute Lymphocytes (1.2-3.4) 10^3/uL 0.68 L Absolute Monocytes (0.1-0.8) 10^3/uL 0.05 L Absolute Eosinophils (0.0-0.7) 10^3/uL 0.15 Absolute Basophils (0.0-0.2) 10^3/uL 0.01 VBG Lactate (0.6-1.4) mmol/L 0.9
[2021-01-14 13:40] LABS: ALT 127 U/L (16-63); AST 118 U/L (15-37); Albumin 2.2 g/dL (3.4-5.0); Alkaline Phosphatase 138 U/L (46-116); Anion Gap 10.6 mmol/L (3-11); BUN 28 mg/dL (7-18); Bilirubin, Total 0.7 mg/dL (0.2-1.0); CO2 24.4 mmol/L (21.0-32.0); CREATININE 1.1 mg/dL (0.70-1.30); Calcium 9.3 mg/dL (8.5-10.1); Chloride 105 mmol/L (98-107); Glucose 63 mg/dL (74-106); NT-proBNP 3170 pg/mL (<300); Potassium 4.6 mmol/L (3.5-5.1); Sodium 140 mmol/L (136-145); TSH (W/Ref FT4) 3.35 uIU/mL (0.36-3.74); Total Protein 8.4 g/dL (6.4-8.2); Troponin I < 0.05 ng/mL (<0.06)
[2021-01-14 14:30] LABS: Bilirubin Negative (Negative); Blood Moderate (Negative); Clarity Cloudy (Clear); Glucose 100 mg/dL (Negative); Ketones Negative (Negative); Leukocyte Esterase Trace (Negative); Nitrite Negative (Negative); Specific Gravity 1.025 (1.005-1.025); Urobilinogen 0.2 EU/dL (Up TO 0.2); pH 5.5 (5-8)
[2021-01-14 14:48] LABS: Bacteria Few HPF (Negative); Crystals Moderate Amorphous HPF (Negative); Epithelial Cells Moderate HPF (Negative); RBC >50 HPF (0-2)
[2021-01-14 14:49] LABS: C & S Indicated? No/Sq. Contamination; Casts Negative LPF (Negative); Mucus Trace (Negative)
--- NOTE | 2021-01-14 14:56 | DI.RAD_ITS ---
Exam(s) XR CHEST 1V IN DI DEPT EXAM: XR CHEST 1V IN DI DEPT CLINICAL HISTORY: SOB. TECHNIQUE: 2D digital imaging was performed. COMPARISON: Prior chest x-ray 12/31/2020 FINDINGS: Cardiomegaly. Mediastinum not widened. Bilateral interstitial partially confluent disease. Probabl y pulmonary edema. No pleural effusions. No pneumothorax IMPRESSION: Cardiomegaly. Interstitial and partially confluent pulmonary edema. Correlation with clinical findi ngs recommended DATA REPOSITORY: RADIATION DOSE DELIVERED: All CT scans at this facility use at least one of these dose optimization techniques: automated exposure control; mA and/or kV adjustment per patient size (includes targeted e xams where dose is matched to clinical indication); or iterative reconstruction.
[2021-01-14 15:24] LABS: Source Nasal/Nares
[2021-01-14 16:39] LABS: Troponin I < 0.05 ng/mL (<0.06)
--- NOTE | 2021-01-14 17:42 | W.PM.HP.N ---
Date of service: 01/14/21 Time of Service: 17:43 Assessment and Plan Assessment and plan (1) Acute alteration in mental status: Status: Acute Assessment and plan: patient found to be unresponsive at the [facility] and was given glucagon and by time EMS arrived his glucose was in the 60's. After arrival to the ER his glucose was 63 on lab drawn level. He was given decadron in the ER. Patient is alert and oriented to person now. It is unclear as to the cause of his hypoglycemia. His acute mental status change may have been from a seizure but no tonic clonic activity was reported. It may be that he has adrenal insufficiency. I will get a cosyntropin stimulation study in the a.m. If he developes hypotension tonight then I would treat him w/ decadron again (not hydrocortisone as this would interfere w/ tomorrow's test). (2) Hypoglycemia: Status: Acute Assessment and plan: possibly iatrogenic from too much insulin/not enough intake of calories although adrenal insufficiency remains a possibility. (3) Heart failure with reduced ejection fraction: Status: Chronic Assessment and plan: last echo done 12/07/2020 showed reduced LV function w/ LVEF 48% global hypokinesis and mild concentric LVH. RV was not well visualized. aortic valve is sclerotic w/ mild AI. continue Irbesartan, (4) Acute exacerbation of congestive heart failure: Status: Acute Assessment and plan: rising BNP and CXR c/w pulmonary edema but negative troponin I. Will start him on iv lasix and watch his urine output and monitor his BMP. Last admission he became significantly azotemic. Qualifiers: Heart failure type: systolic Qualified Code(s): I50.23 - Acute on chronic systolic (congestive) heart failure (5) Diabetes mellitus, type II, insulin dependent: Status: Acute Assessment and plan: monitor glucose AC/HS and give low dose i.e. insulin sensitive corrective scale along w/ CHO coverage. check A1c, last level 10.4% in May 2020. (6) Left leg DVT: Status: Acute Assessment and plan: cont. full strength lovenox 100 mg SC Q12h Qualifiers: Affected thrombotic vein of extremity: femoral Chronicity: unspecified Qualified Code(s): I82.412 - Acute embolism and thrombosis of left femoral vein History of Present Illness History of Present Illness Chief Complaint: hypoglycemia Narrative: 75-year-old man with history of CHF, CVA, hypothyroidism, hypertension, hyperlipidemia, GERD, diabetes, adrenal insufficiency, seizure disorder presenting to emergency department with altered mental status. Patient was recently admitted to [facility], discharged to [facility]. Patient was found in his bed to be lethargic, minimally responsive to staff, with some cyanosis per nurses [facility]. Blood sugar was 65, patient was given glucagon and blood sugar increased to 90. There was no apparent trauma. Patient reports that he has been feeling lousy for days. He denies any pain, fever, shortness of breath, cough, vomiting, diarrhea, numbness, weakness. Patient reports that he is unsure what happened or why he is here. Patient seen in the evening after arrival to the floor. He is more alert although seems confused. He knows that he is in the hospital but not oriented to person/place or time. He is cooperative w/ the exam. Review of Systems Unobtainable due to mental condition [facility] Medical History (Updated 01/15/21 @ 00:30 by Tanmay Frazier) Adrenal insufficiency Benign prostatic hyperplasia (07/03/15) Coronary artery disease Crohns disease Diabetes mellitus, type II, insulin dependent DVT (deep venous thrombosis) Erectile dysfunction of organic origin (07/03/15) Frequent falls GERD (gastroesophageal reflux disease) GI bleed Graves disease Heart failure with reduced ejection fraction Hyperlipidemia Hypertension Hypothyroidism Obstructive sleep apnea Peripheral neuropathy Rheumatoid arthritis Sensorineural hearing loss, bilateral (01/28/15) Stroke 2018 Traumatic compression fracture of T12 thoracic vertebra Vitamin B12 deficiency Vitamin B6 deficiency Vitamin D deficiency Surgical History Graves' eye disease s/p surgery H/O lumbosacral spine surgery Prosthesis, Penile implant Family History Father Asthma Sister Asthma Social History Smoking/Tobacco Use Status: Former Tobacco Use Smoking risk assessment performed?: Yes Alcohol Intake: former Substance use type: does not use Household members: spouse Number of Children: 5 current occupation: Retired [employer] What is your relationship status?: Panel score (0-1 are the most socially isolated patients): 1 Do you feel safe at home: Yes Do you feel safe in your relationship?: Yes Meds Allergies and Home Medications Allergies Allergy/AdvReac Type Severity Reaction Status Date / Time infliximab Allergy Unknown Verified 12/31/20 18:14 methotrexate AdvReac Mild Unverified 12/31/20 18:14 atorvastatin calcium AdvReac Bones ache. Unverified 12/31/20 18:14 [From Lipitor] RAMICAIN AdvReac Uncoded 12/31/20 18:14 Home Medications Medication Instructions Recorded Confirmed Type folic acid 1 mg PO QAM 10/13/12 01/14/21 History finasteride 5 mg PO DAILY #90 tab-cap 03/29/01/14/21 History fluticasone propionate [Flonase 9.9 ml NS BID PRN 07/03/15 12/31/20 History Allergy Relief] nitroglycerin [Nitrostat] 0.4 mg BUCCAL PRN PRN tab-cap 07/03/15 01/15/21 History pyridoxine (vitamin B6) [Vitamin 50 mg PO DAILY 07/03/15 01/14/21 History B-6] rosuvastatin [Crestor] 40 mg PO HS 07/03/15 01/14/21 History bupropion HCl 150 mg 24 hr tablet, 150 mg PO QAM 08/23/18 01/14/21 History extended release tamsulosin 0.4 mg capsule 0.4 mg PO DAILY 08/23/18 01/14/21 History Saccharomyces boulardii 250 mg PO DAILY 03/05/19 12/08/20 History cholecalciferol (vitamin D3) 2,000 unit PO DAILY 03/05/19 01/14/21 History [Vitamin D3] leflunomide 20 mg PO DAILY 03/05/19 01/14/21 History liothyronine [Cytomel] 5 mcg PO DAILY 03/05/19 12/25/20 History Levemir FlexTouch U-100 Insuln See Rx Instructions .ROUTE .COMPLEX 04/11/20 12/31/20 History pantoprazole 40 mg tablet,delayed 40 mg PO DAILY #30 tab 05/16/20 01/14/21 Rx release Entyvio 300 mg IV DIRECTED 11/17/20 12/25/20 History albuterol sulfate [ProAir HFA] 2 puff INHALATION Q4H PRN PRN 11/17/20 12/31/20 History irbesartan 300 mg PO DAILY 11/17/20 01/14/21 History sertraline 200 mg PO DAILY 11/17/20 01/14/21 History spironolactone 50 mg PO DAILY 11/17/20 01/14/21 History Pentasa 1,000 mg PO TID 12/07/20 01/14/21 History Restasis 1 drp OPHTHALMIC (EYE) BID 12/07/20 12/25/20 History buprenorphine 1 patch TRANSDERMAL QWEEK 12/07/20 01/14/21 History insulin lispro [Humalog KwikPen unit SUBCUT 12/07/20 History Insulin] levothyroxine 175 mcg PO DAILY@0600 12/07/20 01/14/21 History mirtazapine 7.5 mg PO QHS 12/07/20 01/14/21 History oxycodone 10 mg PO TID PRN 12/07/20 12/31/20 History ropinirole 1 mg PO QHS 12/07/20 01/14/21 History Rasuvo (PF) 20 mg SUBCUT Q7D 12/08/20 12/08/20 History alendronate 70 mg PO QWEEK 12/08/20 12/31/20 History gabapentin 400 mg PO BID 12/08/20 01/14/21 History Pradaxa 150 mg PO BID #60 cap 12/09/20 01/14/21 Rx enoxaparin [Lovenox] 100 mg SUBCUT Q12H #10 ml 12/09/20 Rx levofloxacin 750 mg PO QAM #5 tab 12/09/20 12/31/20 Rx Saccharomyces boulardii 250 mg PO DAILY 12/25/20 12/25/20 History albuterol sulfate 2.5 mg INHALATION Q2H PRN PRN 12/25/20 12/25/20 History buprenorphine [Butrans] See Rx Instructions .ROUTE .COMPLEX 12/25/20 01/15/21 History ipratropium-albuterol 3 ml INHALATION Q6H PRN PRN 12/25/20 12/31/20 History methylprednisolone 10 mg PO DAILY #30 tab 01/05/21 Rx methylprednisolone [Medrol] 10 mg PO DAILY #30 tab 08/30/21 09/08/21 Rx patiromer calcium sorbitex 16.8 g PO DAILY #30 ea 01/05/21 01/14/21 Rx [Veltassa] sennosides [Senokot] 1 tab PO BID #20 tab 01/05/21 01/15/21 Rx sennosides [senna] 8.6 mg PO BID PRN #30 cap 01/05/21 01/14/21 Rx methotrexate (PF) [Rasuvo (PF)] 20 mg SUBCUT QWEEK 01/15/21 01/15/21 History Exam Const General: cooperative and ill appearing chronically Nutritional Appearance: average body habitus Orientation: alert, awake and oriented to person Chest Chest: normal inspection of the chest Resp Effort & Inspection: audible wheezes, cough, no respiratory distress and tachypneic Auscultation: rhonchi lower bilaterally and wheezes scattered wheezes Percussion: percussion normal Cardio Jugular venous pressure: no JVD Palpation: normal PMI Rate: regular rate Rhythm: regular rhythm Heart Sounds: murmur systolic early, soft, II/ and at the apex Bruits: no abdominal aortic bruits Pulses: brachial pulses present, radial pulses present, ulnar radial pulses present, femoral pulses present and dorsalis pedis present GI Inspection: normal to inspection Palpation: soft and no hepatosplenomegaly Percussion: normal to percussion Auscultation: normal bowel sounds Back/Spine/Pelvis Back: no CVA tenderness Cervical Spine: normal cervical lordosis Thoracic/Lumbar Spine: thoracic and lumbar spine normal to inspection Skin General skin exam: no rashes or lesions noted Neuro General: patient alert, patient awake, oriented Patient Orientation: Person, normal light touch, pain and propioception and no meningeal signs Cranial Nerves: CN's II-XI intact bilaterally Cognition: abnormal cognition Speech: speech normal Motor: muscle tone normal throughout and strength 5/5 throughout Sensory Exam: no sensory deficits noted Extrem General: normal to inspection, full ROM, capillary refill normal, no pedal edema and no calf tenderness Psych Appearance: grossly normal Mental Status: other Speech and Movement: speech and movement normal Mood: congruent mood and other Affect: normal affect Attitude: cooperative Thought Process: circumstantial Thought Content: ideas of reference Insight: poor Judgment: poor Results Labs Result diagrams: 01/14/21 12:58 01/15/21 09:30 Labs: Laboratory Results - last 24 hr 01/14/21 01/14/21 01/14/21 12:58 12:58 12:58 WBC RBC Hgb Hct MCV MCH MCHC RDW Plt Count MPV Immature Gran % Neutrophils % Lymphocytes % Monocytes % Eosinophils % Basophils % Nucleated RBC % Absolute Neutrophils Absolute Lymphocytes Absolute Monocytes Absolute Eosinophils Absolute Basophils VBG Lactate 0.9 Sodium 140 Potassium 4.6 Chloride 105 Carbon Dioxide 24.4 Anion Gap 10.6 BUN 28 H Creatinine 1.1 Estimated GFR/1.73 m2 >= 60.00 Glucose 63 L Calcium 9.3 Magnesium 2.2 Total Bilirubin 0.7 AST 118 H ALT 127 H Alkaline Phosphatase 138 H Troponin I < 0.05 NT-Pro-B Natriuret Pep 3170 H Total Protein 8.4 H Albumin 2.2 L TSH 3.35 Urine Color Urine Clarity Urine pH Ur Specific Gaines Urine Protein Urine Ketones Urine Blood Urine Nitrite Urine Bilirubin Urine Urobilinogen Ur Leukocyte Esterase Urine RBC Urine WBC Ur Epithelial Cells Urine Crystals Urine Bacteria Urine Casts Urine Mucus Ur Culture Indicated? Urine Glucose COVID-19 Source 01/14/21 01/14/21 01/14/21 12:58 14:15 15:15 WBC 4.08 L RBC 3.00 L Hgb 8.4 L Hct 28.1 L MCV 93.7 MCH 28.0 MCHC 29.9 L RDW 18.8 H Plt Count 271 MPV 9.7 Immature Gran % 0.5 Neutrophils % 77.7 Lymphocytes % 16.7 Monocytes % 1.2 Eosinophils % 3.7 Basophils % 0.2 Nucleated RBC % 0 Absolute Neutrophils 3.17 Absolute Lymphocytes 0.68 L Absolute Monocytes 0.05 L Absolute Eosinophils 0.15 Absolute Basophils 0.01 VBG Lactate Sodium Potassium Chloride Carbon Dioxide Anion Gap BUN Creatinine Estimated GFR/1.73 m2 Glucose Calcium Magnesium Total Bilirubin AST ALT Alkaline Phosphatase Troponin I NT-Pro-B Natriuret Pep Total Protein Albumin TSH Urine Color Serene Urine Clarity Cloudy Urine pH 5.5 Ur Specific Gaines 1.025 Urine Protein 100 H Urine Ketones Negative Urine Blood Moderate H Urine Nitrite Negative Urine Bilirubin Negative Urine Urobilinogen 0.2 Ur Leukocyte Esterase Trace H Urine RBC >50 H Urine WBC 10-20 H Ur Epithelial Cells Moderate Urine Crystals Moderate Amorphous Urine Bacteria Few Urine Casts Negative Urine Mucus Trace Ur Culture Indicated? No/Sq. Contamination Urine Glucose 100 COVID-19 Source Nasal/Nares 01/14/21 16:10 WBC RBC Hgb Hct MCV MCH MCHC RDW Plt Count MPV Immature Gran % Neutrophils % Lymphocytes % Monocytes % Eosinophils % Basophils % Nucleated RBC % Absolute Neutrophils Absolute Lymphocytes Absolute Monocytes Absolute Eosinophils Absolute Basophils VBG Lactate Sodium Potassium Chloride Carbon Dioxide Anion Gap BUN Creatinine Estimated GFR/1.73 m2 Glucose Calcium Magnesium Total Bilirubin AST ALT Alkaline Phosphatase Troponin I < 0.05 NT-Pro-B Natriuret Pep Total Protein Albumin TSH Urine Color Urine Clarity Urine pH Ur Specific Gaines Urine Protein Urine Ketones Urine Blood Urine Nitrite Urine Bilirubin Urine Urobilinogen Ur Leukocyte Esterase Urine RBC Urine WBC Ur Epithelial Cells Urine Crystals Urine Bacteria Urine Casts Urine Mucus Ur Culture Indicated? Urine Glucose COVID-19 Source Last Vital Signs Temp 36.8 C 01/14/21 12:56 Pulse 61 01/14/21 17:01 Resp 18 01/14/21 17:10 BP 99/57 L 01/14/21 17:01 Pulse Ox 97 01/14/21 17:10
[2021-01-14 17:56] LABS: COVID-19 PCR Negative (Negative)
[2021-01-14] MEDS: Furosemide 40 MG/4 ML VIAL IVP (18:18)
[2021-01-14] MEDS: Enoxaparin 100 MG/ML SYR SC (18:18)
[2021-01-14] MEDS: Normal Saline Flush 10 ML SYR IVP (18:18)
[2021-01-14] MEDS: Acetaminophen 325 MG TAB PO (20:34)
[2021-01-14] MEDS: Gabapentin 400 MG CAP PO (20:35)
[2021-01-14] MEDS: Rosuvastatin 10 MG TAB 40 MG PO (20:35)
[2021-01-14] MEDS: rOPINIRole 0.5 MG TAB 1 MG PO (22:56)
[2021-01-14] MEDS: Mirtazapine 15 MG TAB 7.5 MG PO (22:57)
[2021-01-14] MEDS: Insulin Aspart 300 UNITS/3 ML PEN SC (23:23)
[2021-01-15] VITALS (10 sets, daily range): BP systolic 82–104; BP diastolic 47–65; PULSE 66–90; RESP 16–17; TEMP 35.7–36.7; O2SAT 94–99
[2021-01-15] MEDS: Levothyroxine 175 MCG TAB PO (06:13)
[2021-01-15] MEDS: Enoxaparin 100 MG/ML SYR SC ×2 (06:13→18:22)
[2021-01-15] MEDS: Cholecalciferol (Vitamin D3) 1,000 UNIT TAB 2000 UNITS PO (08:26)
[2021-01-15] MEDS: Liothyronine 5 MCG TAB PO (08:27)
[2021-01-15] MEDS: Sertraline 50 MG TAB 200 MG PO (08:27)
[2021-01-15] MEDS: Folic Acid 1 MG TAB PO (08:27)
[2021-01-15] MEDS: Senna TAB 1 TAB PO (08:27)
[2021-01-15] MEDS: Irbesartan 75 MG TAB 300 MG PO (08:27)
[2021-01-15] MEDS: Gabapentin 400 MG CAP PO (08:27)
[2021-01-15] MEDS: Tamsulosin 0.4 MG CAPCR PO (08:28)
[2021-01-15] MEDS: Finasteride 5 MG TAB PO (08:28)
[2021-01-15] MEDS: buPROPion-XL 150 MG TABCR PO (08:28)
[2021-01-15] MEDS: Insulin Aspart 300 UNITS/3 ML PEN SC ×6 (08:28→21:22)
[2021-01-15] MEDS: Pantoprazole 40 MG TABCR PO (08:28)
[2021-01-15] MEDS: Furosemide 40 MG/4 ML VIAL IVP ×2 (08:31→16:37)
[2021-01-15] MEDS: Cosyntropin 0.25 MG VIAL IVP (08:31)
[2021-01-15] MEDS: Normal Saline 10 ML VIAL IJ (08:31)
[2021-01-15 08:34] LABS: Hemoglobin A1C 8.1 % (<5.7)
--- NOTE | 2021-01-15 09:42 | PDOC.CMIN ---
- If Service Date Differs Date of service: 01/15/21 Time of Service: 09:43 Care Management Initial Assess REASON FOR HOSPITALIZATION:: Acute mental status change, hypoglycemia, CHF PAST MEDICAL HISTORY/PAST SURGICAL HISTORY:: Adrenal insufficiency. Benign prostatic hyperplasia (07/03/15). Coronary artery disease. Crohns disease. Diabetes mellitus, type II, insulin dependent. DVT (deep venous thrombosis). 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 Frequent falls. GERD (gastroesophageal reflux disease). GI bleed. Graves disease. Heart failure with reduced ejection fraction. Hyperlipidemia. Hypertension. Hypothyroidism. Obstructive sleep apnea. Peripheral neuropathy. Rheumatoid arthritis. Sensorineural hearing loss, bilateral (01/28/15). Stroke. 2018. Traumatic compression fracture of T12 thoracic vertebra. Vitamin B12 deficiency. Vitamin B6 deficiency. Vitamin D deficiency. Surgical History . Graves' eye disease. s/p surgery. H/O lumbosacral spine surgery. Prosthesis, Penile implant PREVIOUS FUNCTIONAL STATUS/SOCIAL/FAMILY SUPPORTS:: Miguel resides with his , Nohemi, in [place], [place]. 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 His works during the day, Tuesday through Tuesday, currently patient is at [facility] post acute discharge from [facility] on 01/05/21. CURRENT FUNCTIONAL STATUS:: Miguel was lying in bed, napping. CM did not disturb Sonido as he is well known to this ghost writer from previous visits. ADVANCE DIRECTIVES:: COLST on file at [facility]. Has patient been provided with info about the portal/API?: Yes Did the patient sign up for the portal?: Yes (Previously ) CODE STATUS:: DNR/DNI INSURANCE COVERAGE / FINANCIAL ISSUES:: Medicare. Medicaid. AARP CURRENT HOME/COMMUNITY SERVICES/EQUIPMENT:: SNF: [facility] PRIMARY CARE PHYSICIAN:: Celestine Perkins POTENTIAL DISCHARGE NEEDS:: Coordinated return to [facility]. PATIENT/FAMILY EDUCATION NEEDS:: Review discharge instructions, discuss Ask Me [employer]. ANTICIPATED BARRIERS TO DISCHARGE:: None identified. TRANSPORTATION:: Via [facility] W/C van. PLAN:: Miguel will return to [facility] when ready per MD. Anticipate he will transport via the facility's W/C van. CM to coordinate discharge considerations with [facility].
[2021-01-15 10:15] LABS: Anion Gap 10.8 mmol/L (3-11); BUN 60 mg/dL (7-18); CO2 23.2 mmol/L (21.0-32.0); CREATININE 1.5 mg/dL (0.70-1.30); Chloride 103 mmol/L (98-107); Glucose 232 mg/dL (74-106); Potassium 4.2 mmol/L (3.5-5.1); Sodium 137 mmol/L (136-145)
[2021-01-15 10:16] LABS: Magnesium 2.4 mg/dL (1.8-2.4)
[2021-01-15 10:27] LABS: NT-proBNP 1905 pg/mL (<300)
[2021-01-15] MEDS: oxyCODONE 10 MG TAB PO (14:00)
[2021-01-15] MEDS: Hydrocortisone SOD SUC. 100 MG VIAL IVP (18:16)
--- NOTE | 2021-01-15 18:19 | W.PM.PROGNOT ---
Date of Service Date of service: 01/15/21 Time of Service: 16:00 Assessment and Plan Assessment and plan (1) Prerenal azotemia: Status: Acute Assessment and plan: I believe that I have overshot in diuresing and overestimated how much was acute chf vs. penitentiary. I have held his lasix and have ordered a small bolus of saline 250 mL. I will recheck his BMP in the a.m. I will also hold his irbesartan tomorrow until we have had a repeat BMP. (2) Heart failure with reduced ejection fraction: Status: Chronic Assessment and plan: hold irbesartan and lasix and spironolactone. (3) Acute alteration in mental status: Status: Acute Assessment and plan: improving. monitor glucose. avoid hypoglycemia. (4) Hypoglycemia: Status: Acute Assessment and plan: blood sugars runing 200 to 250 today. He is on novolog sensitive corrective scale along w/ CHO coverage (1:10 ratio). (5) Diabetes mellitus, type II, insulin dependent: Status: Acute Assessment and plan: insulin as above (6) Left leg DVT: Status: Acute Assessment and plan: enoxaparin 100 mg SC Q12h Qualifiers: Affected thrombotic vein of extremity: femoral Chronicity: unspecified Qualified Code(s): I82.412 - Acute embolism and thrombosis of left femoral vein Subjective Subjective Interval history since last seen: Patient was admitted yesterday afternoon from [facility] for his acute episode of unresponsiveness associated with hypoglycemia. It is believed that the patient has adrenal insufficiency. He has never had a formal work-up with cosyntropin stimulation testing. However on prior admissions has had hypotension associated with hypoglycemia that has responded to stress dose corticosteroids. The time of his last discharge on January 05, 2021 his maintenance dose of methylprednisolone was increased to 10 mg daily. It appears that this is the dose that he is on at the residential however no MAR was sent w/ him so I can not confirm that is the dose they were giving him. He had decadron last night which seems to have perked him up. He is more animated this afternoon and he recognizes me as the physician who admitted him yesterday. His was present when I evaluated him this afternooon. he denies any nausea or vomiting but admits that his appetite is poor. He is not dyspneic at rest. No cough and no sputum production. His BUN and creatinine josé greatly overnight from iv lasis. BUN up to 60 and creatinine is 1.5. I have put his lasix on hold. However he already had received his morning and afternoon doses. Since his BP is soft, I will give him a small bolus of saline 250 mL over 4 hours. Exam Const General: cooperative, comfortable, no acute distress and well developed Nutritional Appearance: obese Orientation: alert, awake, oriented to person and oriented to place [facility] Head: normal to inspection General nose exam: external nose normal Face and sinus: normal facial exam Mouth: moist mucous membranes abnormal and oral mucosa abnormal laceration left upper lip Teeth and gingiva: abnormal tooth or associated gingiva (poor dentition of lower teeth, upper jaw edentulous) Throat: posterior oropharynx normal Neck Neck: normal visual inspection, full ROM, no lymphadenopathy, no meningeal signs, trachea midline, supple and no JVD Carotids: normal carotid upstroke Lymphatic: no lymphadenopathy noted Chest Chest: normal inspection of the chest Resp Effort & Inspection: normal respiratory effort, able to speak in complete sentences and prolonged expiratory phase Auscultation: rales bilaterally at the base Cardio Jugular venous pressure: no JVD Palpation: normal PMI Rate: regular rate Rhythm: regular rhythm Pulses: posterior tibial pulses present and dorsalis pedis present GI Inspection: normal to inspection Palpation: soft Percussion: normal to percussion Auscultation: normal bowel sounds Skin General skin exam: no rashes or lesions noted Neuro General: patient alert, patient awake, oriented Patient Orientation: Person and Place and no meningeal signs Cranial Nerves: CN's II-XI intact bilaterally Cognition: normal cognition Speech: speech normal Motor: muscle tone normal throughout and strength 5/5 throughout Extrem General: normal to inspection, full ROM and no pedal edema Psych Appearance: grossly normal Mental Status: mental status grossly normal Speech and Movement: speech and movement normal Mood: congruent mood Affect: normal affect Attitude: cooperative Thought Process: normal Thought Content: normal Insight: fair Judgment: fair Objective Last Vital Signs Temp 36.7 C 01/15/21 13:25 Pulse 90 01/15/21 13:25 Resp 16 01/15/21 13:25 BP 90/58 L 01/15/21 13:25 Pulse Ox 99 01/15/21 13:25 Laboratory Results - last 24 hr 01/15/21 01/15/21 01/15/21 07:30 09:30 09:30 Sodium 137 Potassium 4.2 Chloride 103 Carbon Dioxide 23.2 Anion Gap 10.8 BUN 60 H D Creatinine 1.5 H Estimated GFR/1.73 m2 45.50 Glucose 232 H D Hemoglobin A1c 8.1 H Calcium 9.0 Magnesium 2.4 NT-Pro-B Natriuret Pep 01/15/21 09:30 Sodium Potassium Chloride Carbon Dioxide Anion Gap BUN Creatinine Estimated GFR/1.73 m2 Glucose Hemoglobin A1c Calcium Magnesium NT-Pro-B Natriuret Pep 1905 H
[2021-01-15] MEDS: Normal Saline Flush 10 ML SYR IVP ×2 (18:21→21:23)
[2021-01-15] MEDS: Normal Saline 250 ML 65 ML IV (21:24)
[2021-01-16] VITALS (8 sets, daily range): BP systolic 101–108; BP diastolic 54–64; PULSE 68–97; RESP 16–18; TEMP 36–36.5; O2SAT 94–98
[2021-01-16] MEDS: Hydrocortisone SOD SUC. 100 MG VIAL 50 MG IVP ×3 (01:43→20:21)
[2021-01-16] MEDS: Normal Saline Flush 10 ML SYR IVP ×6 (01:44→23:24)
[2021-01-16] MEDS: Enoxaparin 100 MG/ML SYR SC ×2 (06:06→18:01)
[2021-01-16] MEDS: Levothyroxine 175 MCG TAB PO (06:07)
[2021-01-16 06:51] LABS: HCT 24.5 % (40.0-50.0); HGB 7.2 g/dL (13.5-17.5); MCH 27.7 pg (27.0-33.0); MCHC 29.4 % (32.0-36.0); MCV 94.2 fL (80-95); Platelet Count 212 10^3/uL (130-400); RDW 19.1 % (11.8-14.1); RDW-SD 65.5 fL; WBC 4.05 10^3/uL (4.4-10.8)
[2021-01-16 07:16] LABS: Anion Gap 10.3 mmol/L (3-11); CO2 22.7 mmol/L (21.0-32.0); CREATININE 2.3 mg/dL (0.70-1.30); Calcium 8.5 mg/dL (8.5-10.1); Chloride 103 mmol/L (98-107); Estimated GFR 27.78 (mL/min/1.73m2); Glucose 259 mg/dL (74-106); NT-proBNP 1283 pg/mL (<300); Sodium 136 mmol/L (136-145)
[2021-01-16 07:23] LABS: BUN 88 mg/dL (7-18)
[2021-01-16] MEDS: Senna TAB 1 TAB PO ×2 (09:09→20:21)
[2021-01-16] MEDS: buPROPion-XL 150 MG TABCR PO (09:09)
[2021-01-16] MEDS: Sertraline 50 MG TAB 200 MG PO (09:09)
[2021-01-16] MEDS: Gabapentin 400 MG CAP PO ×2 (09:09→20:22)
[2021-01-16] MEDS: Irbesartan 75 MG TAB 300 MG PO (09:10)
[2021-01-16] MEDS: Cholecalciferol (Vitamin D3) 1,000 UNIT TAB 2000 UNITS PO (09:10)
[2021-01-16] MEDS: Folic Acid 1 MG TAB PO (09:10)
[2021-01-16] MEDS: Liothyronine 5 MCG TAB PO (09:10)
[2021-01-16] MEDS: Pantoprazole 40 MG TABCR PO (09:11)
[2021-01-16] MEDS: Finasteride 5 MG TAB PO (09:11)
[2021-01-16] MEDS: Tamsulosin 0.4 MG CAPCR PO (09:11)
[2021-01-16] MEDS: Insulin Aspart 300 UNITS/3 ML PEN SC ×6 (10:06→23:26)
--- NOTE | 2021-01-16 10:17 | PGE_ITS ---
Date of Service Date of service: 01/16/21 Time of Service: 10:17 Assessment and Plan Assessment and plan (1) Prerenal azotemia: Status: Acute Assessment and plan: Irbesartan and diuretics remain on hold. We will give gentle IV fluid hydration with LR as noted above. Recheck his BMP this evening and again in the morning. (2) Heart failure with reduced ejection fraction: Status: Chronic Assessment and plan: hold irbesartan and lasix and spironolactone. (3) Acute alteration in mental status: Status: Acute Assessment and plan: improving. monitor glucose. avoid hypoglycemia. (4) Hypoglycemia: Status: Acute Assessment and plan: blood sugars runing 200 to 250 today. He is on novolog sensitive corrective scale along w/ CHO coverage (1:10 ratio). (5) Diabetes mellitus, type II, insulin dependent: Status: Acute Assessment and plan: insulin as above (6) Left leg DVT: Status: Acute Assessment and plan: enoxaparin 100 mg SC Q12h Qualifiers: Affected thrombotic vein of extremity: femoral Chronicity: unspecified Qualified Code(s): I82.412 - Acute embolism and thrombosis of left femoral vein (7) Adrenal insufficiency: Status: Chronic Assessment and plan: Patient currently on high-dose hydrocortisone 50 mg IV every 8 hours. We will transition him over to oral corticosteroids at an increased dosage. The equivalent dose of his current hydrocortisone would be 30 mg of methylprednisolone a day orally. At the correction he was on 10 mg a day. I would switch him to 30 mg of methylprednisolone daily x3 days then decrease to 20 mg daily x3 days then 15 mg daily with a slow taper thereafter until he is back to his baseline dose. (8) Iron deficiency anemia: Status: Chronic Assessment and plan: We will give venofer 10 mg IV daily x3 days Qualifiers: Iron deficiency anemia type: unspecified iron deficiency Qualified Code(s): D50.9 - Iron deficiency anemia, unspecified Subjective Subjective Patient reports: no new complaints and feels better; denies shortness of breath Interval history since last seen: Does complain of chronic fatigue and is wondering if a blood transfusion would help him. I told him that his blood count does not quite meet criteria for transfusion. I did check his stool for occult blood this morning and they were negative. His hemoglobin dropped slightly from yesterday from 8.4-7.2 however it appears that his baseline hemoglobin is around 7.5. He has a normocytic normochromic anemia with an increased RDW. I have ordered reticulocyte count and iron studies. If his iron levels are low I will put him on venofer for the next 3 days. His BUN and creatinine have climbed to 88 and 2.3 today. This in spite of the fact that I stopped his diuretics yesterday. However patient was also on a 1500 mL fluid restriction diet which I have liberalized to a nonfluid restricted diet. Because of his worsening azotemia I am any give him gentle fluid hydration today of LR at 500 mL over 4 hours and repeat his BMP this afternoon. With respect to his blood sugars are doing better they are running in the mid 200s today. He is currently on stress dose hydrocortisone which tomorrow we can convert him over to a higher dose of his oral corticosteroids. Exam Narrative Exam Narrative: Elderly male sitting up in bed just having finished his breakfast. HEENT is remarkable for dry crusted blood on his lip Lungs are clear to auscultation anteriorly posteriorly has some faint bibasilar rales no rhonchi or wheezes Heart is regular no appreciable murmur or rub Abdomen soft and nontender nondistended. Extremities without peripheral cyanosis or edema. Rectal exam reveals normal sphincter tone with light brown stool in the rectal vault that was Hemoccult negative Objective Last Vital Signs Temp 36.5 C 01/16/21 04:33 Pulse 78 01/16/21 04:33 Resp 18 01/16/21 04:33 BP 108/56 L 01/16/21 04:33 Pulse Ox 98 01/16/21 04:33 Laboratory Results - last 24 hr 01/15/21 01/15/21 01/15/21 07:30 09:30 09:30 WBC RBC Hgb Hct MCV MCH MCHC RDW Plt Count MPV Sodium 137 Potassium 4.2 Chloride 103 Carbon Dioxide 23.2 Anion Gap 10.8 BUN 60 H D Creatinine 1.5 H Estimated GFR/1.73 m2 45.50 Glucose 232 H D Calcium 9.0 Magnesium 2.4 NT-Pro-B Natriuret Pep Cortisol 12 Cortisol 30 Minute Cortisol 60 Minute 01/15/21 01/15/21 01/15/21 09:30 09:30 10:05 WBC RBC Hgb Hct MCV MCH MCHC RDW Plt Count MPV Sodium Potassium Chloride Carbon Dioxide Anion Gap BUN Creatinine Estimated GFR/1.73 m2 Glucose Calcium Magnesium NT-Pro-B Natriuret Pep 1905 H Cortisol Cortisol 30 Minute 26 Cortisol 60 Minute 30 01/16/21 01/16/21 06:14 06:14 WBC 4.05 L RBC 2.60 L Hgb 7.2 L Hct 24.5 L MCV 94.2 MCH 27.7 MCHC 29.4 L RDW 19.1 H Plt Count 212 MPV 10.0 Sodium 136 Potassium 5.0 Chloride 103 Carbon Dioxide 22.7 Anion Gap 10.3 BUN 88 H* D Creatinine 2.3 H D Estimated GFR/1.73 m2 27.78 Glucose 259 H Calcium 8.5 Magnesium NT-Pro-B Natriuret Pep 1283 H Cortisol Cortisol 30 Minute Cortisol 60 Minute
[2021-01-16 10:52] LABS: Reticulocyte 1.1 % (0.5-2.4)
[2021-01-16 11:08] LABS: Iron 43 ug/dL (65-175); Total Iron Binding Capacity 127 ug/dL (250-450); Transferrin Sat 34 % (20-55)
[2021-01-16 12:49] LABS: Ferritin > 2000 ng/mL (26-388)
--- NOTE | 2021-01-16 13:44 | SP_ITS ---
Date of service: 01/16/21 Time of Service: 13:44 Subjective Patient referred for clinical (bedside) swallow evaluation from Dr. Frazier given nursing concerns after patient complained of difficulty eating his evening meal. Patient received alert/awake, semi-upright in his hospital bed, eating his lunch, agreeable to evaluation, able to communicate wants/needs effectively; able to demonstrate comprehension of recommendations for safe PO intake upon discharge once deemed medically stable. 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 Patient perception of the problem: coughs when drinking every so often, denies sensation of food sticking in his throat, endorses difficulty chewing and severe pain/sensitivity of his lips and tongue Objective Objective Precautions: Fall. Standard. Activity as tolerated. HPI: Pt is a 75 yo M admitted due to acute altered mental status (Pt was found unresponsive at rehab facility) with hypoglycemia of unknown cause. Per nursing, he reported increased difficulty swallowing with his evening meal, after he had been given a pain medication with a sedative effect, though patient also reported a history of swallow difficulties. PMHx: Adrenal insufficiency Benign prostatic hyperplasia (07/03/15) Coronary artery disease Crohns disease Diabetes mellitus, type II, insulin dependent DVT (deep venous thrombosis) Erectile dysfunction of organic origin (07/03/15) Frequent falls GERD (gastroesophageal reflux disease) GI bleed Graves disease Heart failure with reduced ejection fraction Hyperlipidemia Hypertension Hypothyroidism Obstructive sleep apnea Peripheral neuropathy Rheumatoid arthritis Sensorineural hearing loss, bilateral (01/28/15) Stroke 2018 Traumatic compression fracture of T12 thoracic vertebra Vitamin B12 deficiency Vitamin B6 deficiency Vitamin D deficiency Surgical History Graves' eye disease s/p surgery H/O lumbosacral spine surgery Prosthesis, Penile implant Social History/Home Situation: Pt lives with his , though comes from [facility] rehab this admission after recent [facility] inpatient admission for acute on chronic heart failure. OBJECTIVE: Predisposing dysphagia risk factors: CHF, FRANCIE, H/O CVA, GERD. Sp02: 95+% this date RR: 18/ 3L NC Cranial nerve exam / Oral Motor: CN V: facial sensation [ntact] to light touch labial protrusion [weak] labial coordination/ROM [slow, weak (?pain)] Jaw excursion [reduced (?lip pain)] mastication [impaired - [edentulous, tongue pain] lingual/labial sensation [did not test] suspect superior hyoid movement is [intact] although cannot rule out at bedside CN VII: lateral sulcus residue [absent] anterior spillage [not observed] salivation [intact] CN IX/X: palatal elevation - [symmetrical] Vocal Quality - [WFL before and after PO intake] taste - [WFL - pt complains of pain with salty & acidic foods] onset of swallow - [suspect possible delay] pharyngeal residue - [WFL per report] nasopharyngeal regurgitation - [none reported by patient] CN XII: bolus preparation/manipulation/control - [possible impairment] AP transit - [appears WFL] lingual protrusion [symmetrical, impaired/weak - deviation to R/L] lingual coordination/ROM [poorly coordinated] lingual residue [minimal] Dentition/Oral Structures/Hygiene: largely edentulous anterior mandibular incisors present in poor condition oral hygiene appears poor but reports regular oral care regimen Language: [verbal expression/fluency, naming, repetition, and auditory comprehension adequate] Hearing: [adequate for conversation Mental Status: AAO to place, situation, some confusion re: timeline of recent hospitalizations Speech: mildly slurred, slow speech - suspect largely 2/2 medical status and/or medications Laryngeal function exam: Secretions: WFL Vocal quality: WFL Cough: (volitional) perceptually WFL PO intake IDDSI 0: Water X3 via straw IDDSI 1: IDDSI 2: Soup X3 tsp IDDSI 6: Peaches X2 - pt able to adequately break down using tongue and roof of mouth as well as front teeth Pill/tablet: did not test No s/sx of aspiration noted (cough, throat clear, wet vocal quality) throughout trials. Pt denies sensation of pharyngeal residue. Oral stage: difficulty primarily with mastication and pain. Assessment Recommendations: Diet Texture Modification(s): IDDSI Level(s) 6-Soft & Bite-Sized Solids 0-Thin Liquids Medication Intake: Whole with 4-Extremely Thick Liquids Alter medications only as advised by MD or Pharmacist RISK MANAGEMENT: Oral hygiene [BID/2x per day, q4h/every 4 hours] and before/after PO intake using friction with toothbrush on all oral structures as tolerated HOB upright as tolerated; upright for all PO intake. Encourage physical mobility as tolerated. Level of Assistance/Supervision: Independent, Distant supervision for all PO intake PO intake only when awake/alert Strategies/Adaptations/Assistive Equipment: Reduce auditory and/or visual distractions when eating Small sips and bites when eating Slow rate of intake Specialist referrals: N/A Ancillary tests: N/A Therapy: N/A Goal: N/A Plan [employer] Measurer Goals: n/a Short Term Goals: n/a Coding
[2021-01-16] MEDS: Lactated Ringers 500 ML 85 ML IV (14:53)
--- NOTE | 2021-01-16 16:17 | PHA.REVIEW ---
Pharmacy Admission Review - Admission Clinical Review (Last Updated 01/15/21 @ 00:30 by Tanmay Frazier) Prerenal azotemia (Acute) Acute exacerbation of congestive heart failure (Acute) Hypoglycemia (Acute) Acute alteration in mental status (Acute) Left leg DVT (Acute) Diabetes mellitus, type II, insulin dependent (Acute) infliximab Allergy (Unknown, Verified 12/31/20 18:14) methotrexate Adverse Reaction (Mild, Unverified 12/31/20 18:14) atorvastatin calcium [From Lipitor] Adverse Reaction (Unverified 12/31/20 18:14) Bones ache. RAMICAIN Adverse Reaction (Uncoded 12/31/20 18:14) Resuscitation Status DNR/DNI Height 6 ft Weight 83.9 kg - Renal Dosing Renal Dosing: BUN 88 mg/dL (7-18) H* D 01/16/21 06:14 Creatinine 2.3 mg/dL (0.70-1.30) H D 01/16/21 06:14 Medications needing adjustments: Reviewed List of meds needing interventions: eCrCl 29 ml/min - Anticoagulation Anticoagulation: Hgb 7.2 g/dL (13.5-17.5) L 01/16/21 06:14 Hct 24.5 % (40.0-50.0) L 01/16/21 06:14 Plt Count 212 10^3/uL (130-400) 01/16/21 06:14 Creatinine 2.3 mg/dL (0.70-1.30) H D 01/16/21 06:14 Therapeutic Anticoagulation: Reviewed Medications: Enoxaparin - Opiate Usage Evaluate Pain Scale/Pains Meds: N/A - Relevant Labs Sodium 136 mmol/L (136-145) 01/16/21 06:14 Potassium 5.0 mmol/L (3.5-5.1) 01/16/21 06:14 Chloride 103 mmol/L (98-107) 01/16/21 06:14 Magnesium 2.4 mg/dL (1.8-2.4) 01/15/21 09:30 Electrolytes, C-Reactive P, ESR: Reviewed - DM Control DM Control: Glucose 259 mg/dL (74-106) H 01/16/21 06:14 Hemoglobin A1c 8.1 % (<5.7) H 01/15/21 07:30 Finger Stick Blood Glucose 323 Finger Stick Blood Glucose 323 Finger Stick Blood Glucose 323 Finger Stick Blood Glucose 323 Finger Stick Blood Glucose 288 Insulin Dosing: Reviewed (aspart per SS and carb coverage) - Heart Failure/RI Heart Failure/RI: Troponin I < 0.05 ng/mL (<0.06) 01/14/21 16:10 NT-Pro-B Natriuret Pep 1283 pg/mL (<300) H 01/16/21 06:14 EF%, СЕРГЕЙ's, B-Blockers, Diuretics: Reviewed - BP Control BP Control: Blood Pressure 108/56 If elevated: Reviewed - Qtc Review List meds needing interventions: 513 on admission - watch for add'n of qt prolonging meds - IV to PO Switch IV Medications: Reviewed - Home Meds Home Med List reviewed: Reviewed Relevent Home Meds Not ordered & why?: levemir (aspart per SS/carb coverage), pradaxa (full dose levonox ordered), spironolactone; extensively reviewed and cleaned up home med list, couldn't confirmed current insulin regimen - will check H&R MAR and update - Current meds Current Medication Order Review: Reviewed
[2021-01-16] MEDS: IRON SUCROSE COMPLEX 200 MG in Normal Saline 100 ML 400 MG IVPB (18:01)
[2021-01-16 18:18] LABS: Anion Gap 9.8 mmol/L (3-11); CO2 22.2 mmol/L (21.0-32.0); CREATININE 2.2 mg/dL (0.70-1.30); Calcium 8.4 mg/dL (8.5-10.1); Chloride 103 mmol/L (98-107); Estimated GFR 29.25 (mL/min/1.73m2); Glucose 203 mg/dL (74-106); Potassium 4.2 mmol/L (3.5-5.1); Sodium 135 mmol/L (136-145)
[2021-01-16 18:21] LABS: BUN 97 mg/dL (7-18)
--- NOTE | 2021-01-16 19:03 | CMPROGNOTE_ITS ---
- If Service Date Differs Date of service: 01/16/21 Time of Service: 19:03 Care Management Progress Note S/O: Miguel was lying in bed when CM met with him. His , Nohemi arrived during the visit, and CM discussed their concerns about Miguel returning to [facility]. CM explained that referrals can be sent to other facilities, and CM will support his alternative placement, if that can be achieved during this admission. If he becomes medically cleared before a bed becomes available, CM will advocate for admissions/social work at [facility] continue to support a transfer after returning. Miguel and Nohemi requested that referrals be sent to [facility] and the [facility]. CM will follow up on these referrals on Tuesday, as admissions are not available over the weekend. CM will continue to follow. A: Miguel is a 75 year old male admitted to [facility] on 01/14/21 with an acute mental status change, hypoglycemia, CHF. P: Anticipate Miguel will return to [facility] vs alternate placement when he is medically cleared by . Transportation will be determined by srinivas shea/aman snell. He will follow up with his PCP and discharge plan of care. CM will continue to follow.
[2021-01-16] MEDS: Rosuvastatin 10 MG TAB 40 MG PO (20:21)
[2021-01-16] MEDS: Acetaminophen 325 MG TAB PO (20:21)
[2021-01-16] MEDS: Docusate Sodium 100 MG CAP PO (20:22)
[2021-01-16] MEDS: Magic Mouthwash 119 ML BTL 10 ML MM (23:25)
[2021-01-16] MEDS: rOPINIRole 0.5 MG TAB 1 MG PO (23:25)
[2021-01-17] VITALS (8 sets, daily range): BP systolic 88–121; BP diastolic 53–74; PULSE 62–103; RESP 12–24; TEMP 36–36.5; O2SAT 90–98
[2021-01-17] MEDS: Magic Mouthwash 119 ML BTL 10 ML MM ×3 (06:49→21:09)
[2021-01-17] MEDS: Enoxaparin 100 MG/ML SYR SC ×2 (06:49→18:32)
[2021-01-17] MEDS: Levothyroxine 175 MCG TAB PO (06:49)
[2021-01-17 08:37] LABS: Abs Immature Grans 0.02 10^3/uL (0.0-0.06); Absolute Eosinophil Count 0.03 10^3/uL (0.0-0.7); Absolute Lymphocyte Count 0.94 10^3/uL (1.2-3.4); Absolute Monocyte Count 0.12 10^3/uL (0.1-0.8); Absolute Neutrophil Count 2.09 10^3/uL (1.2-6.7); Eosinophils % 0.9; HCT 24.5 % (40.0-50.0); HGB 7.4 g/dL (13.5-17.5); Immature Grans % 0.6; Lymphocytes % 29.4; MCH 28.4 pg (27.0-33.0); MCHC 30.2 % (32.0-36.0); MCV 93.9 fL (80-95); MPV 9.9 fL (8.0-11.0); Monocytes % 3.8; Neutrophils % 65.3; Nucleated RBC 0 %; Platelet Count 179 10^3/uL (130-400); RBC 2.61 10^6/uL (4.36-5.78); RDW 19.1 % (11.8-14.1); RDW-SD 65.1 fL
[2021-01-17 08:54] LABS: ALT 64 U/L (16-63); AST 29 U/L (15-37); Albumin 2.2 g/dL (3.4-5.0); Alkaline Phosphatase 103 U/L (46-116); Anion Gap 8.4 mmol/L (3-11); Bilirubin, Total 0.2 mg/dL (0.2-1.0); CO2 23.6 mmol/L (21.0-32.0); CREATININE 1.8 mg/dL (0.70-1.30); Calcium 8.8 mg/dL (8.5-10.1); Chloride 105 mmol/L (98-107); Estimated GFR 36.87 (mL/min/1.73m2); Glucose 200 mg/dL (74-106); Potassium 4.2 mmol/L (3.5-5.1); Sodium 137 mmol/L (136-145); Total Protein 7.4 g/dL (6.4-8.2)
[2021-01-17] MEDS: Insulin Aspart 300 UNITS/3 ML PEN SC ×6 (08:54→23:01)
[2021-01-17] MEDS: Gabapentin 400 MG CAP PO ×2 (08:55→21:09)
[2021-01-17] MEDS: Liothyronine 5 MCG TAB PO (08:55)
[2021-01-17] MEDS: Pantoprazole 40 MG TABCR PO (08:55)
[2021-01-17] MEDS: Senna TAB 1 TAB PO ×2 (08:55→21:09)
[2021-01-17 08:56] LABS: BUN 92 mg/dL (7-18)
[2021-01-17] MEDS: Finasteride 5 MG TAB PO (08:57)
[2021-01-17] MEDS: Sertraline 50 MG TAB 200 MG PO (08:57)
[2021-01-17] MEDS: Folic Acid 1 MG TAB PO (08:57)
[2021-01-17] MEDS: buPROPion-XL 150 MG TABCR PO (08:57)
[2021-01-17] MEDS: Cholecalciferol (Vitamin D3) 1,000 UNIT TAB 2000 UNITS PO (08:57)
[2021-01-17] MEDS: Tamsulosin 0.4 MG CAPCR PO (08:57)
[2021-01-17 09:01] LABS: Anisocytosis 1+; Diff Comment RBC Morph Reviewed
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
[2021-01-17] MEDS: IRON SUCROSE COMPLEX 200 MG in Normal Saline 100 ML 440 MG IVPB (11:20)
--- NOTE | 2021-01-17 13:56 | PGE_ITS ---
Date of Service Date of service: 01/17/21 Time of Service: 13:56 Assessment and Plan Assessment and plan (1) Prerenal azotemia: Status: Acute Assessment and plan: BUN continues to be elevated. Creatinine improved to 1.8. Irbesartan and diuretics remain on hold. Given gentle IV fluid hydration with LR yesterday. Encourage po fluids. (2) Heart failure with reduced ejection fraction: Status: Chronic Assessment and plan: hold irbesartan and lasix and spironolactone. (3) Acute alteration in mental status: Status: Acute Assessment and plan: improving. monitor glucose. avoid hypoglycemia. (4) Hypoglycemia: Status: Acute Assessment and plan: blood sugars of 200, 231 today. He is on novolog sensitive corrective scale along w/ CHO coverage (1:10 ratio). (5) Diabetes mellitus, type II, insulin dependent: Status: Acute Assessment and plan: insulin as above (6) Left leg DVT: Status: Acute Assessment and plan: enoxaparin 100 mg SC Q12h Qualifiers: Affected thrombotic vein of extremity: femoral Chronicity: unspecified Qualified Code(s): I82.412 - Acute embolism and thrombosis of left femoral vein (7) Adrenal insufficiency: Status: Chronic Assessment and plan: Transitioned from IV steroid over to oral corticosteroids at an increased dosage. The equivalent dose of his current hydrocortisone would be 30 mg of methylprednisolone a day orally. At the longterm he was on 10 mg a day; methylprednisolone daily x3 days then decrease to 20 mg daily x3 days then 15 mg daily with a slow taper thereafter until he is back to his baseline dose. (8) Iron deficiency anemia: Status: Chronic Assessment and plan: We will give venofer 100 mg IV daily x3 days Qualifiers: Iron deficiency anemia type: unspecified iron deficiency Qualified Code(s): D50.9 - Iron deficiency anemia, unspecified Subjective Subjective Patient reports: feels better, tolerating a regular diet, shortness of breath and afebrile; denies diarrhea, nausea and vomiting Exam Narrative Exam Narrative: Sitting in chair. Const General: cooperative, comfortable, no acute distress and well developed Nutritional Appearance: average body habitus and obese Orientation: alert, awake, oriented to person and oriented to place [facility] Head: normal to inspection General nose exam: external nose normal Face and sinus: normal facial exam Mouth: moist mucous membranes abnormal and oral mucosa abnormal laceration Teeth and gingiva: abnormal tooth or associated gingiva (poor dentition of lower teeth, upper jaw edentulous) Throat: posterior oropharynx normal Neck Neck: normal visual inspection, full ROM, supple and no JVD Chest Chest: normal inspection of the chest Resp Effort & Inspection: normal respiratory effort, able to speak in complete sentences, no respiratory distress and prolonged expiratory phase Auscultation: rhonchi lower bilaterally Cardio Jugular venous pressure: no JVD Palpation: normal PMI Rate: regular rate Rhythm: regular rhythm Heart Sounds: murmur systolic early, soft, II/ and at the apex Bruits: no abdominal aortic bruits GI Inspection: normal to inspection Palpation: soft and no hepatosplenomegaly Percussion: normal to percussion Auscultation: normal bowel sounds Back/Spine/Pelvis Back: no CVA tenderness Cervical Spine: normal cervical lordosis Thoracic/Lumbar Spine: thoracic and lumbar spine normal to inspection Skin General skin exam: no rashes or lesions noted Neuro General: patient alert, patient awake, oriented Patient Orientation: Person and Place, normal light touch, pain and propioception and no meningeal signs Cranial Nerves: CN's II-XI intact bilaterally Cognition: normal cognition and abnormal cognition Speech: speech normal Motor: muscle tone normal throughout and strength 5/5 throughout Sensory Exam: no sensory deficits noted Extrem General: normal to inspection, full ROM, capillary refill normal, no pedal edema, no calf tenderness and no pedal edema Psych Appearance: grossly normal Mental Status: mental status grossly normal and other Speech and Movement: speech and movement normal Mood: congruent mood and other Affect: normal affect Attitude: cooperative Thought Process: normal and circumstantial Thought Content: normal and ideas of reference Insight: fair and poor Judgment: fair and poor Objective Last Vital Signs Temp 36.5 C 01/17/21 07:35 Pulse 64 01/17/21 07:35 Resp 15 01/17/21 07:35 BP 121/74 01/17/21 07:35 Pulse Ox 96 01/17/21 07:35 Laboratory Results - last 24 hr 01/16/21 01/17/21 01/17/21 17:57 06:31 06:31 WBC Cancelled RBC Cancelled Hgb Cancelled Hct Cancelled MCV Cancelled MCH Cancelled MCHC Cancelled RDW Cancelled Plt Count Cancelled MPV Cancelled Immature Gran % Cancelled Neutrophils % Cancelled Band Neutrophils % Cancelled Lymphocytes % Cancelled Atypical Lymphs % Cancelled Monocytes % Cancelled Eosinophils % Cancelled Basophils % Cancelled Metamyelocytes % Cancelled Myelocytes % Cancelled Promyelocytes % Cancelled Other Cells % Cancelled Nucleated RBC % Cancelled Absolute Neutrophils Cancelled Absolute Lymphocytes Cancelled Absolute Monocytes Cancelled Absolute Eosinophils Cancelled Absolute Basophils Cancelled RBC Morphology Cancelled Polychromasia Cancelled Hypochromasia Cancelled Poikilocytosis Cancelled Basophilic Stippling Cancelled Anisocytosis Cancelled Microcytosis Cancelled Macrocytosis Cancelled Spherocytes Cancelled Tear Drop Cells Cancelled Ovalocytes Cancelled Stomatocytes Cancelled [place] Bodies Cancelled [place] Cells/Echinocytes Cancelled Acanthocytes (Spur) Cancelled Schistocytes Cancelled Sodium 135 L Cancelled Potassium 4.2 Cancelled Chloride 103 Cancelled Carbon Dioxide 22.2 Cancelled Anion Gap 9.8 Cancelled BUN 97 H* Cancelled Creatinine 2.2 H Cancelled Estimated GFR/1.73 m2 29.25 Cancelled Glucose 203 H Cancelled Calcium 8.4 L Cancelled Total Bilirubin AST ALT Alkaline Phosphatase Total Protein Albumin 01/17/21 01/17/21 08:25 08:25 WBC 3.20 L RBC 2.61 L Hgb 7.4 L Hct 24.5 L MCV 93.9 MCH 28.4 MCHC 30.2 L RDW 19.1 H Plt Count 179 MPV 9.9 Immature Gran % 0.6 Neutrophils % 65.3 Band Neutrophils % Lymphocytes % 29.4 Atypical Lymphs % Monocytes % 3.8 Eosinophils % 0.9 Basophils % 0.0 Metamyelocytes % Myelocytes % Promyelocytes % Other Cells % Nucleated RBC % 0 Absolute Neutrophils 2.09 Absolute Lymphocytes 0.94 L Absolute Monocytes 0.12 Absolute Eosinophils 0.03 Absolute Basophils 0.00 RBC Morphology See Below Polychromasia Hypochromasia Poikilocytosis Basophilic Stippling Anisocytosis 1+ Microcytosis Macrocytosis Spherocytes Tear Drop Cells Ovalocytes Stomatocytes [place] Bodies Nas Cells/Echinocytes Acanthocytes (Spur) Schistocytes Sodium 137 Potassium 4.2 Chloride 105 Carbon Dioxide 23.6 Anion Gap 8.4 BUN 92 H* Creatinine 1.8 H Estimated GFR/1.73 m2 36.87 Glucose 200 H Calcium 8.8 Total Bilirubin 0.2 AST 29 ALT 64 H Alkaline Phosphatase 103 Total Protein 7.4 Albumin 2.2 L
[2021-01-17] MEDS: Rosuvastatin 10 MG TAB 40 MG PO (21:09)
[2021-01-17] MEDS: Normal Saline Flush 10 ML SYR IVP (23:00)
[2021-01-18] VITALS (12 sets, daily range): BP systolic 94–148; BP diastolic 50–75; PULSE 76–109; RESP 19–24; TEMP 35.8–39.1; O2SAT 82–95
--- NOTE | 2021-01-18 | DI.RAD_ITS ---
Exam(s) XR PORTABLE CHEST AP EXAM: XR PORTABLE CHEST AP CLINICAL HISTORY: hypoxia TECHNIQUE: 2D digital imaging was performed. COMPARISON: CR,XR XR CHEST 2V PA LATERAL from 12/31/2020 CR,XR XR CHEST 2V PA LATERAL from 12/31/2020 CR XR CHEST 1V IN DI DEPT from 01/14/2021 CR XR CHEST 1V IN DI DEPT from 01/14/2021 FINDINGS: LUNGS: Low lung volumes. Bilateral infiltrates, right greater than left. No definite change from pr ior. No pleural abnormality seen. HEART: Enlarged BONES: Degenerative changes. IMPRESSION: Bilateral infiltrates, right greater than left. DATA REPOSITORY: RADIATION DOSE DELIVERED:
[2021-01-18] MEDS: Enoxaparin 100 MG/ML SYR SC ×2 (06:46→17:44)
[2021-01-18 07:45] LABS: HCT 25.3 % (40.0-50.0); HGB 7.5 g/dL (13.5-17.5); MCH 27.7 pg (27.0-33.0); MCHC 29.6 % (32.0-36.0); MCV 93.4 fL (80-95); MPV 10.8 fL (8.0-11.0); Platelet Count 172 10^3/uL (130-400); RBC 2.71 10^6/uL (4.36-5.78); RDW 19.2 % (11.8-14.1); RDW-SD 64.6 fL; WBC 3.61 10^3/uL (4.4-10.8)
[2021-01-18 07:50] LABS: Anion Gap 8.1 mmol/L (3-11); BUN 75 mg/dL (7-18); CO2 24.9 mmol/L (21.0-32.0); CREATININE 1.4 mg/dL (0.70-1.30); Chloride 108 mmol/L (98-107); Estimated GFR 49.27 (mL/min/1.73m2); Glucose 185 mg/dL (74-106); Potassium 4.2 mmol/L (3.5-5.1); Sodium 141 mmol/L (136-145)
[2021-01-18] MEDS: PIPERACILLIN/TAZO 2.25 GM in Normal Saline 50 ML IVPB ×3 (08:42→20:31)
[2021-01-18] MEDS: Normal Saline Flush 10 ML SYR IVP ×6 (08:42→22:03)
[2021-01-18] MEDS: Insulin Aspart 300 UNITS/3 ML PEN SC ×3 (08:42→21:38)
[2021-01-18] MEDS: Furosemide 40 MG/4 ML VIAL IVP (08:42)
[2021-01-18] MEDS: IRON SUCROSE COMPLEX 200 MG in Normal Saline 100 ML 440 MG IVPB (08:43)
[2021-01-18 09:21] LABS: Bilirubin Negative (Negative); Blood Large (Negative); Clarity Sl Cloudy (Clear); Glucose Negative (Negative); Ketones Negative (Negative); Leukocyte Esterase Trace (Negative); Nitrite Negative (Negative); Specific Gravity 1.015 (1.005-1.025); Urobilinogen 0.2 EU/dL (Up TO 0.2); pH 5.5 (5-8)
[2021-01-18 09:43] LABS: Bacteria Many HPF (Negative); C & S Indicated? Yes; Crystals Few Amorphous HPF (Negative); Epithelial Cells Few HPF (Negative); Mucus Trace (Negative); RBC >50 HPF (0-2); WBC 20-50 HPF (0-5)
--- NOTE | 2021-01-18 10:04 | DI.VRAD_ITS ---
PROCEDURE INFORMATION: Exam: XR Chest Exam date and time: 01/18/2021 7:49 AM Age: 75 years old Clinical indication: Other: Hypoxia TECHNIQUE: Imaging protocol: XR of the chest. Views: 1 view. COMPARISON: CR XR CHEST 1V IN DI DEPT 01/14/2021 2:49 PM FINDINGS: Lungs: There are prominent diffuse bilateral pulmonary infiltrates especially in the right lung. There has been no significant change allowing for differences in positioning. Pleural spaces: Unremarkable. No pleural effusion. No pneumothorax. Heart/Mediastinum: The cardiac silhouette is enlarged but unchanged. Bones/joints: Unremarkable. IMPRESSION: Stable prominent bilateral pulmonary infiltrates. Dictated and Authenticated by: Reyes Schmidt MD. Ordering:SKYLAR Maldonado MD
[2021-01-18 10:24] LABS: Source Nasal/Nares
[2021-01-18 11:21] LABS: COVID-19 PCR Negative (Negative)
[2021-01-18] MEDS: ACETAMINOPHEN 1,000 MG/100 ML BTL 400 MG IVPB ×2 (12:41→20:06)
--- NOTE | 2021-01-18 13:47 | W.PM.PROGNOT ---
Date of Service Date of service: 01/18/21 Time of Service: 13:48 Assessment and Plan Assessment and plan (1) Prerenal azotemia: Status: Acute Assessment and plan: BUN continues to be elevated. Creatinine improved to 1.8. May be related to swallowing blood from an oral lesion. Irbesartan and diuretics remain on hold. Given gentle IV fluid hydration with LR yesterday. Encourage po fluids. (2) Heart failure with reduced ejection fraction: Status: Chronic Assessment and plan: hold irbesartan and lasix and spironolactone. CXR read as bilateral infiltrates; could have some componenet of pulmonary edema. Gave lasix 40mg IV. (3) Acute alteration in mental status: Status: Acute Assessment and plan: improving. monitor glucose. avoid hypoglycemia. (4) Hypoglycemia: Status: Acute Assessment and plan: blood sugars of 200, 231 today. He is on novolog sensitive corrective scale along w/ CHO coverage (1:10 ratio). (5) Diabetes mellitus, type II, insulin dependent: Status: Acute Assessment and plan: insulin as above (6) Left leg DVT: Status: Acute Assessment and plan: enoxaparin 100 mg SC Q12h Qualifiers: Affected thrombotic vein of extremity: femoral Chronicity: unspecified Qualified Code(s): I82.412 - Acute embolism and thrombosis of left femoral vein (7) Adrenal insufficiency: Status: Chronic Assessment and plan: Transitioned from IV steroid over to oral corticosteroids at an increased dosage. The equivalent dose of his current hydrocortisone would be 30 mg of methylprednisolone a day orally. [facility] 10 mg a day; methylprednisolone daily x3 days then decrease to 20 mg daily x3 days then 15 mg daily with a slow taper thereafter until he is back to his baseline dose. (8) Iron deficiency anemia: Status: Chronic Assessment and plan: We will give venofer 100 mg IV daily x3 days Qualifiers: Iron deficiency anemia type: unspecified iron deficiency Qualified Code(s): D50.9 - Iron deficiency anemia, unspecified (9) Pneumonia: Status: Acute Assessment and plan: Fever this AM Increased work of breathing and requiring supplemental O2. CXR with bilateral infiltrates. Zosyn initiated. (10) Discharge planning issues: Status: Acute Assessment and plan: Pt is showing concerning decline. Spoke with and sister in law who were present. Will continue current efforts with palliative consult. DNR/DNI Subjective Subjective Patient reports: denies vomiting Interval history since last seen: Pt more lethargic today. + fever. Had loose stool. Exam Narrative Exam Narrative: Lying in bed with NC in place. Somnolent Const General: no acute distress Nutritional Appearance: average body habitus Limitations: altered mental status [facility] Head: normal to inspection General nose exam: external nose normal Face and sinus: normal facial exam Mouth: moist mucous membranes abnormal and oral mucosa abnormal laceration Teeth and gingiva: abnormal tooth or associated gingiva (poor dentition of lower teeth, upper jaw edentulous) Throat: posterior oropharynx normal Neck Neck: normal visual inspection, full ROM, supple and no JVD Chest Chest: normal inspection of the chest Resp Effort & Inspection: respiratory distress and prolonged expiratory phase Auscultation: rhonchi lower bilaterally Cardio Jugular venous pressure: no JVD Rate: regular rate Rhythm: regular rhythm Heart Sounds: murmur systolic early, soft, II/ and at the apex Bruits: no abdominal aortic bruits GI Inspection: normal to inspection Palpation: soft and no hepatosplenomegaly Percussion: normal to percussion Auscultation: normal bowel sounds Back/Spine/Pelvis Back: no CVA tenderness Cervical Spine: normal cervical lordosis Thoracic/Lumbar Spine: thoracic and lumbar spine normal to inspection Skin General skin exam: no rashes or lesions noted Neuro General: no focal motor deficits Extrem General: normal to inspection and no pedal edema Objective Last Vital Signs Temp 39.1 C H 01/18/21 11:54 Pulse 76 01/18/21 07:49 Resp 19 01/18/21 07:49 BP 128/75 01/18/21 07:49 Pulse Ox 93 01/18/21 07:49 Laboratory Results - last 24 hr 01/18/21 01/18/21 01/18/21 06:50 06:50 09:12 WBC 3.61 L RBC 2.71 L Hgb 7.5 L Hct 25.3 L MCV 93.4 MCH 27.7 MCHC 29.6 L RDW 19.2 H Plt Count 172 MPV 10.8 Sodium 141 Potassium 4.2 Chloride 108 H Carbon Dioxide 24.9 Anion Gap 8.1 BUN 75 H Creatinine 1.4 H Estimated GFR/1.73 m2 49.27 Glucose 185 H Calcium 9.0 Urine Color Yellow Urine Clarity Sl Cloudy Urine pH 5.5 Ur Specific [place] 1.015 Urine Protein Negative Urine Ketones Negative Urine Blood Large H Urine Nitrite Negative Urine Bilirubin Negative Urine Urobilinogen 0.2 Ur Leukocyte Esterase Trace H Urine RBC >50 H Urine WBC 20-50 H Ur Epithelial Cells Few Urine Crystals Few Amorphous Urine Bacteria Many Urine Mucus Trace Ur Culture Indicated? Yes Urine Glucose Negative COVID-19 Source SARS-CoV-2 (PCR) 01/18/21 10:15 WBC RBC Hgb Hct MCV MCH MCHC RDW Plt Count MPV Sodium Potassium Chloride Carbon Dioxide Anion Gap BUN Creatinine Estimated GFR/1.73 m2 Glucose Calcium Urine Color Urine Clarity Urine pH Ur Specific [place] Urine Protein Urine Ketones Urine Blood Urine Nitrite Urine Bilirubin Urine Urobilinogen Ur Leukocyte Esterase Urine RBC Urine WBC Ur Epithelial Cells Urine Crystals Urine Bacteria Urine Mucus Ur Culture Indicated? Urine Glucose COVID-19 Source Nasal/Nares SARS-CoV-2 (PCR) Negative
[2021-01-18] MEDS: MORPHine 2 MG/ML SYR IVP ×2 (15:01→22:03)
[2021-01-18] MEDS: Lidocaine 2% Jelly 11 ML SYR UR (18:30)
[2021-01-18] MEDS: Magic Mouthwash 119 ML BTL 10 ML MM (22:09)
[2021-01-19] VITALS (12 sets, daily range): BP systolic 102–117; BP diastolic 55–63; PULSE 74–113; RESP 1–28; TEMP 36.3–36.8; O2SAT 76–99
[2021-01-19] MEDS: MORPHine 2 MG/ML SYR IVP ×2 (02:03→08:04)
[2021-01-19] MEDS: Normal Saline Flush 10 ML SYR IVP ×5 (02:03→14:32)
[2021-01-19] MEDS: PIPERACILLIN/TAZO 2.25 GM in Normal Saline 50 ML IVPB (02:06)
[2021-01-19] MEDS: Albuterol/Ipratropium 3 ML UPD VIAL IH (02:12)
[2021-01-19] MEDS: LORazepam 2 MG/ML VIAL 1 MG IVP ×3 (03:06→14:31)
[2021-01-19] MEDS: ACETAMINOPHEN 1,000 MG/100 ML BTL 400 MG IVPB ×2 (03:07→12:36)
[2021-01-19] MEDS: Enoxaparin 100 MG/ML SYR SC (05:52)
[2021-01-19] MEDS: Furosemide 100 MG/10 ML VIAL 80 MG IVP (09:12)
[2021-01-19] MEDS: Glycopyrrolate 0.2 MG/1 ML VIAL IVP (09:12)
[2021-01-19] MEDS: Refresh PLUS Eye Drops 0.4ml 1 EACH OU ×2 (09:13→16:10)
--- NOTE | 2021-01-19 16:59 | W.PM.PROGNOT ---
Date of Service Date of service: 01/19/21 Time of Service: 16:59 Assessment and Plan Assessment and plan (1) End of life care: Status: Acute Assessment and plan: New onset of pneumonia, likely aspiration. He is not responding well to antibiotics and supportive oxygen. DNR/DNI Family aware of the poor prognosis, little likelyhood of recovery. Subjective Subjective Patient reports: afebrile Interval history since last seen: Pt is somnolent. Intermittently with increased work of breathing. Exam Narrative Exam Narrative: Pt on comfort measures. Supplemental O2 was d/c'd. Objective Last Vital Signs Temp 36.4 C L 01/19/21 08:21 Pulse 113 H 01/19/21 08:21 Resp 28 H 01/19/21 08:21 BP 107/61 01/19/21 08:21 Pulse Ox 81 L 01/19/21 08:21
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
--- NOTE | 2021-01-19 19:19 | CMPROGNOTE_ITS ---
- If Service Date Differs Date of service: 01/19/21 Time of Service: 19:19 Care Management Progress Note S/O: Miguel took a turn this weekend, and was transitioned to comfort measures early this morning. His , Nohemi arrived to be by his side, and remained there for the duration of the day. He had many family members visiting throughout the day, taking turns as there can only be two vaccinated visitors at a time due to Covid protocol. CM met with Nohemi and the other family members many times throughout the day, and organized food to be brought to the family outside for them to have nourishment during this difficult time. CM will continue to follow. A: Miguel is a 75 year old male admitted to [facility] on 01/14/21 with an acute mental status change, hypoglycemia, CHF. P: Miguel transitioned to comfort measures today. He will remain at [facility] for end of life care. Per MD, he appears to be actively dying. CM will continue to support Nohemi Rivera, and their family during this difficult time.
[2021-01-19] MEDS: LORazepam 2 MG/ML VIAL IVP (20:54)
--- NOTE | 2021-01-19 22:07 | NUR.NOTE ---
Nursing Note: This nurse called into Pt room at 2124. Family at bedside and Pt had appeared to have ceased breathing. Charge nurse and anther floor nurse in room with Pt. CADD pump stopped SQ needle remains in place at this time. Pt family continues at bedside at this time. Post mortem care to be preformed when family is ready.
--- NOTE | 2021-11-15 17:41 | W.PM.DDS ---
Date of service: 11/15/21 Time of Service: 17:41 Discharge Sum: Prov Provider Consults: 01/16/21 09:58 Speech Therapy Consult [CONS] Routine Consultation Status:: Follow-up needed Clarification:: Manage/follow per spec. Reason for consult:: evaluate for dysphagia 01/16/21 09:59 Physical Therapy Consult [CONS] Routine Consulting Provider: [facility] Priority: Non-Urgent Reson for Non-Urgent Priority: Exacerbation Chronic Cond 01/17/21 15:49 Palliative Care Consult [CONS] Routine Consultation Status:: Follow-up needed Clarification:: Manage/follow per spec. Reason for consult:: Worsening / recurrent chronic mobidities. 01/19/21 08:23 Electrical Development Engineer Consult [CONS] Stat Consultation Status:: Follow-up needed Clarification:: Manage/follow per spec. Reason for consult:: Patient is dying; consult if family agreeable. Discharge Sum: Diag Contributing Factors (1) End of life care:
== END 2021-01-19 23:45 | disposition expired | DRG 637 ==
LOC: ER 15:19 → MS 17:19
PROVIDERS: Family Medicine; Admitting Provider Internal Medicine; Emergency Provider Student in an Organized Health Care Education/Training Program; PCP Family Medicine; Visit Provider Internal Medicine
DX: E11.649 Type 2 diabetes mellitus with hypoglycemia without coma (principal); I50.23 Acute on chronic systolic (congestive) heart failure; J69.0 Pneumonitis due to inhalation of food and vomit; E27.40 Unspecified adrenocortical insufficiency; K50.90 Crohn's disease, unspecified, without complications; Z51.5 Encounter for palliative care; Z79.4 Long term (current) use of insulin; I82.412 Acute embolism and thrombosis of left femoral vein; Z86.73 Personal history of transient ischemic attack (TIA), and cerebral infarction without residual deficits; I11.0 Hypertensive heart disease with heart failure; Z66 Do not resuscitate; E78.5 Hyperlipidemia, unspecified; K21.9 Gastro-esophageal reflux disease without esophagitis; G40.909 Epilepsy, unspecified, not intractable, without status epilepticus; N40.0 Benign prostatic hyperplasia without lower urinary tract symptoms; I25.10 Atherosclerotic heart disease of native coronary artery without angina pectoris; R29.6 Repeated falls; G47.33 Obstructive sleep apnea (adult) (pediatric); E05.00 Thyrotoxicosis with diffuse goiter without thyrotoxic crisis or storm; E11.42 Type 2 diabetes mellitus with diabetic polyneuropathy; M06.9 Rheumatoid arthritis, unspecified; H90.3 Sensorineural hearing loss, bilateral; E53.8 Deficiency of other specified B group vitamins; E55.9 Vitamin D deficiency, unspecified; Z87.891 Personal history of nicotine dependence; Z20.822 Contact with and (suspected) exposure to COVID-19; D50.9 Iron deficiency anemia, unspecified; R79.89 Other specified abnormal findings of blood chemistry
CPT/HCPCS: 36415; 36416; 80048; 80053; 82533; 82962; 85027; 87040; 87077; 87206; 87635; 93005; 96374; 97162; 99285; 70450; 71045; 81003; 81015; 82728; 83036; 83540; 83550; 83605; 83735; 83880; 84443; 84484; 85025; 85045; 87086; 87186; 93010; 99223; 99232; 99233; J0131; J0834; J1100; J1650; J1720; J1756; J1940; J2060; J2270; J2543; J3490; J7620